=== PATIENT | male | born 1990 | race Caucasian/White ===

== ENCOUNTER 2017-09-27 14:10 | Inpatient (IN) | payer OTHER ==
[2017-09-27 14:37] VITALS: BMI 38.5
[2017-09-27] MEDS ORDERED: ACETAMINOPHEN 1000 MG/100 ML VIAL (NON FORMULARY) IVPB ONE (14:49)
[2017-09-27] MEDS ORDERED: SODIUM CHLORIDE 1,000 ML IV STA ×2 (14:49→16:07)
--- NOTE | 2017-09-27 14:56 | PDOC ---
History of Present Illness - General History Source: [facility] Exam Limitations: Clinical Condition - History of Present Illness Initial Comments: CHIEF COMPLAINT: 27 y/o febrile, tachycardic male with PMH epilepsy, G-tube, CP , wheelchair bound, intellectual disability, BIB EMS from [facility] for fever and copious oral secretions to r/o pneumonia. HISTORY OF PRESENT ILLNESS: No other information provided in the paperwork. Vital signs on arrival are notable for pulse of 147, respiratory rate of 26 and temp of 102.7. REVIEW OF SYSTEMS: Obtained from [facility] records as patient is non verbal. GENERAL/CONSTITUTIONAL: +fever of 101.3 at [facility] HEAD, EYES, EARS, NOSE AND THROAT: +excessive oral secretion. RESPIRATORY: +respiratory distress. GASTROINTESTINAL: No vomiting or diarrhea. PHYSICAL EXAM: GENERAL: The patient is somnolent HEAD: Normal with no signs of trauma. ENT: PERRLA, EOMI. Mucous membranes and lips dry. LUNGS: rhonchi in b/l anterior resendiz. CV: tachycardic with regular rhythm, S1/S2, no MRG. Cap refill < 2 sec. ABDOMEN: Soft, non-distended. EXTREMITIES: Normal range of motion, no edema. SKIN: Hot to touch <Margarita Bethea - Last Filed: 09/27/17 17:58> <Sanjana Abel - Last Filed: 09/28/17 11:28> - General Chief Complaint: SIRS, Suspected/Possible Stated Complaint: FEVER Time Seen by Provider: 09/27/17 14:31 Past History - Past Medical History COPD: No Seizures: Yes (epilepsy, cp,) Other medical history: Cerebral Palsy,scoliosis, - Surgical History Abdominal Surgery: Yes (gtube feeding) - Suicide/Smoking/Psychosocial Hx Smoking History: Never smoked Have you smoked in the past 12 months: No Information on smoking cessation initiated: No Hx Alcohol Use: No Drug/Substance Use Hx: No Substance Use Type: None <Margarita Bethea - Last Filed: 09/27/17 17:58> <Sanjana Abel - Last Filed: 09/28/17 11:28> - Past Medical History Allergies/Adverse Reactions: Allergies Allergy/AdvReac Type Severity Reaction Status Date / Time albuterol Allergy Verified 09/27/17 14:36 Cephalosporins Allergy Verified 09/27/17 14:37 latex Allergy Verified 09/27/17 14:37 Penicillins Allergy Verified 09/27/17 14:36 shrimp Allergy Verified 09/27/17 14:37 wool Allergy Verified 09/27/17 14:37 Home Medications: Ambulatory Orders Carbamazepine 300 mg GT DAILY 09/27/17 Carbamazepine 400 mg GT BID 09/27/17 Clobazam [Onfi] 5 mg GT AM 09/27/17 Clobazam [Onfi] 10 mg GT HS 09/27/17 Diazepam Rectal Gel [Diastat *Rectal Gel*] 10 mg RC PRN 09/27/17 LORazepam [Ativan] 1 mg GT DAILY PRN 09/27/17 Mometasone Furoate 17 gm NS DAILY 09/27/17 Polyethylene Glycol 3350 [Miralax (For Daily Use) -] 17 gm GT DAILY 09/27/17 Rufinamide [Banzel] 40 mg GT BID 09/27/17 Topiramate [Topamax -] 400 mg GT HS 09/27/17 Topiramate [Topamax] 300 mg GT AM 09/27/17 Zonisamide [Zonegran] 100 mg GT BID 09/27/17 Zonisamide [Zonegran] 250 mg GT HS 09/27/17 *Physical Exam - Vital Signs Last Vital Signs Temp Pulse Resp BP Pulse Ox 102.7 F H 147 H 26 H 99/74 97 09/27/17 14:10 09/27/17 14:10 09/27/17 14:10 09/27/17 14:10 09/27/17 14:10 <Margarita Bethea - Last Filed: 09/27/17 17:58> - Vital Signs Last Vital Signs Temp Pulse Resp BP Pulse Ox 100.0 F H 102 H 24 115/76 98 09/28/17 07:00 09/28/17 07:00 09/28/17 07:00 09/28/17 07:00 09/27/17 19:35 <Sanjana Abel - Last Filed: 09/28/17 11:28> Heart Score/ECG Review - ECG Intrepretation Comment:: Twelve-lead EKG was performed and reviewed by Dr. Abel. There is sinus tachycardia. Possible left atrial enlargement. Right axis deviation. Possible right ventricular hypertrophy. Impression: Abnormal twelve-lead EKG <Margarita Bethea - Last Filed: 09/27/17 17:58> ED Treatment Course - LABORATORY CBC & Chemistry Diagram: 09/27/17 15:02 09/27/17 15:02 <Margarita Bethea - Last Filed: 09/27/17 17:58> - LABORATORY CBC & Chemistry Diagram: 09/28/17 07:10 09/28/17 07:10 - ADDITIONAL ORDERS Additional order review: 09/27/17 15:02 Urine Culture - Preliminary Urine - Urine - Catheterized Gram Negative Audi 09/27/17 15:02 RBC 4.43 MCV 98.0 H MCHC 34.3 RDW 12.9 MPV 7.5 Neutrophils % 93.3 H Lymphocytes % 2.0 L Monocytes % 4.6 Eosinophils % 0.0 Basophils % 0.1 - RADIOLOGY Radiology Studies Ordered: Category Date Time Status CHEST X-RAY PORTABLE* [RAD] Stat Radiology 09/27/17 14:34 Completed - Medications Given in the ED: ED Medications Discontinued Medications Generic Name Dose Route Start Last Admin Trade Name Alexq PRN Reason Stop Dose Admin Acetaminophen 1,000 mg 09/27/17 14:49 09/27/17 15:14 Ofirmev Injection - IVPB 09/27/17 14:50 1,000 mg ONCE ONE Administration Sodium Chloride 1,000 mls @ 1,000 mls/hr 09/27/17 14:49 09/27/17 15:14 Normal Saline - IV 09/27/17 15:48 1,000 mls/hr ASDIR STA Administration Sodium Chloride 1,000 mls @ 1,000 mls/hr 09/27/17 16:07 09/27/17 16:33 Normal Saline - IV 09/27/17 17:06 1,000 mls/hr ASDIR STA Administration Levofloxacin 750 mg in 150 mls @ 100 mls/hr 09/27/17 17:02 09/27/17 17:24 Levaquin 750 Mg Premixed Ivpb - IVPB 09/27/17 18:31 100 mls/hr ONCE ONE Administration <Sanjana Abel - Last Filed: 09/28/17 11:28> Medical Decision Making - Medical Decision Making A/p: 27 y/o febrile, tachycardic male most likely septic. Suspect PNA. Plan is as follows: 1. Labs 2. CXR 3. UA/culture 4. IV fluids 5. IV ofirmev CXR IMPRESSION: No definite airspace consolidation. WBC count of 20 with left shift. Ordered IV levaquin to treat suspected pneumonia. Will admit to hospitalist. Microblogged hospitalist on 5:[address] Root. <Margarita Bethea - Last Filed: 09/27/17 17:58> *DC/Admit/Observation/Transfer - Discharge Dispostion Admit: Yes <Margarita Bethea - Last Filed: 09/27/17 17:58> - Attestations Physician Attestion: I reviewed the case with the mid-level practitioner and agree with the mid- level practitioner's assessment, diagnosis and disposition. <Sanjana Abel - Last Filed: 09/28/17 11:28> Diagnosis at time of Disposition: Sepsis Qualifiers: Sepsis type: sepsis due to unspecified organism Qualified Code(s): A41.9 - Sepsis, unspecified organism - Discharge Dispostion Condition at time of disposition: Poor
[2017-09-27] MEDS ORDERED: ACETAMINOPHEN INJECTION 100 ML IVPB ONE (15:05)
[2017-09-27 15:07] LABS: VENOUS PC02 42.5 mmHg (38-52); VENOUS PH 7.38 (7.32-7.42)
[2017-09-27 15:09] LABS: BASO % 0.1 % (0-2.0); HEMATOCRIT 43.4 % (35.4-49); HEMOGLOBIN 14.9 GM/dL (11.7-16.9); MCH 33.6 pg (25.7-33.7); MCHC 34.3 g/dl (32.0-35.9); MEAN PLT VOLUME 7.5 fl (7.5-11.1); MONO % 4.6 % (3.8-10.2); NEUT % 93.3 % (42.8-82.8); PLATELET COUNT 205 K/MM3 (134-434); RBC 4.43 M/mm3 (4.00-5.60); RDW 12.9 % (11.9-15.9); WHITE BLOOD COUNT 20.2 K/mm3 (4.0-10.0)
[2017-09-27 15:13] LABS: URINE APPEARANCE CLOUDY; URINE BILIRUBIN NEGATIVE (<2.0 mg/dL); URINE BLOOD NEGATIVE (NEGATIVE); URINE COLOR YELLOW; URINE GLUCOSE (UA) NEGATIVE (NEGATIVE); URINE KETONE NEGATIVE (NEGATIVE); URINE NITRITE NEGATIVE (NEGATIVE); URINE PROTEIN NEGATIVE (NEGATIVE); URINE UROBILINOGEN NEGATIVE mg/dL (0.2-1.0)
[2017-09-27 15:17] LABS: URINE LEUK ESTERASE 2+ (NEGATIVE)
[2017-09-27 15:22] LABS: URINE MUCUS RARE
[2017-09-27 15:25] LABS: ALBUMIN 4.1 g/dl (3.4-5.0); ALK PHOS 179 U/L (45-117); ANION GAP 12 (8-16); BILIRUBIN,TOTAL 0.4 mg/dL (0.2-1.0); BLOOD UREA NITROGEN 9 mg/dL (7-18); CALCIUM 8.7 mg/dL (8.5-10.1); CHLORIDE 93 mmol/L (98-107); CO2 25 mmol/L (21-32); CREATININE 0.4 mg/dL (0.7-1.3); GLUCOSE,RANDOM 85 mg/dL (74-106); SGOT/AST 28 U/L (15-37); SGPT/ALT 49 U/L (12-78); SODIUM 130 mmol/L (136-145)
[2017-09-27 15:37] LABS: INR 1.16 (0.82-1.09); PROTHROMBIN TIME (PATIENT) 13.1 SEC (9.98-11.88)
[2017-09-27] MEDS ORDERED: SODIUM CHLORIDE 1,000 ML IV SCH (17:30)
--- NOTE | 2017-09-27 18:05 | HP ---
CHIEF COMPLAINT: fever + increased oral secretions PCP: [facility] HISTORY OF PRESENT ILLNESS: 27yo young man with PMH of CP, epilepsy, scoliosis, and dysphagia s/p GT who presents from [place] after found to be febrile with 101.3F and increased yellow oral secretions. Patient was previously living at home with 24H aid, and recently moved to [facility] 1 week ago. Father (Josefa Patterson) is at bedside and reports patient has a history of aspiration, but prior UTIs. ER course was notable for: (1) Tmax 102.7, HR 147 (2) UA: 2+LE, WBC 8 (3) CXR: small L pleural effusion + bibasilar atelectasis, cannot r/o PNA Recent Travel: none PAST MEDICAL HISTORY: Cerebral palsy Epilepsy Scoliosis PAST SURGICAL HISTORY: GT placement Vagal stimulator, currently deactivated Social History: Smoking: never Alcohol: none Drugs: none Family History: non-contributory Allergies: albuterol Allergy (Verified 09/27/17 14:36) Cephalosporins Allergy (Verified 09/27/17 14:37) latex Allergy (Verified 09/27/17 14:37) Penicillins Allergy (Verified 09/27/17 14:36) shrimp Allergy (Verified 09/27/17 14:37) wool Allergy (Verified 09/27/17 14:37) HOME MEDICATIONS: Carbamazepine 300 mg GT DAILY 09/27/17 Carbamazepine 400 mg GT BID 09/27/17 Clobazam [Onfi] 5 mg GT AM 09/27/17 Clobazam [Onfi] 10 mg GT HS 09/27/17 Diazepam Rectal Gel [Diastat *Rectal Gel*] 10 mg RC PRN 09/27/17 LORazepam [Ativan] 1 mg GT DAILY PRN 09/27/17 Mometasone Furoate 17 gm NS DAILY 09/27/17 Polyethylene Glycol 3350 [Miralax (For Daily Use) -] 17 gm GT DAILY 09/27/17 Rufinamide [Banzel] 40 mg GT BID 09/27/17 Topiramate [Topamax -] 400 mg GT HS 09/27/17 Topiramate [Topamax] 300 mg GT AM 09/27/17 Zonisamide [Zonegran] 100 mg GT BID 09/27/17 Zonisamide [Zonegran] 250 mg GT HS 09/27/17 REVIEW OF SYSTEMS: unable to obtain PHYSICAL EXAMINATION Vital Signs - 24 hr 09/27/17 09/27/17 14:10 15:40 Temperature 102.7 F H 102 F H Pulse Rate 147 H 125 H Respiratory 26 H 22 Rate Blood Pressure 99/74 91/55 O2 Sat by Pulse 97 100 Oximetry (%) GENERAL: Awake, alert, non-verbal, nad HEENT: sclera anicteric, conjunctiva clear, oropharynx clear without exudates, mmm LUNGS: poor inspiratory effort, course breath sounds bilaterally, no wheezing appreciated HEART: tachycardia, regular rhythm, normal s1/s2 ABDOMEN: soft, NTND, +bowel sounds, +PEG in LUQ : no suprapubic ttp UPPER EXTREMITIES: contracted bilaterally LOWER EXTREMITIES: 2+ DP pulses, wwp, no edema SKIN: diffuse erythematous papular rash on forehead and flexor surfaces CBC, BMP 09/27/17 15:02 09/27/17 15:02 Hepatic Panel Total Bilirubin 0.4 mg/dL (0.2-1.0) 09/27/17 15:02 AST 28 U/L (15-37) 09/27/17 15:02 ALT 49 U/L (12-78) 09/27/17 15:02 Alkaline Phosphatase 179 U/L (45-117) H 09/27/17 15:02 Albumin 4.1 g/dl (3.4-5.0) 09/27/17 15:02 Active Medications Acetaminophen (Ofirmev Injection -) 1,000 mg IVPB Q6H PRN PRN Reason: FEVER Carbamazepine (Tegretol Oral Suspension -) 300 mg GT DAILY@1200 BRAD Carbamazepine (Tegretol Oral Suspension -) 400 mg GT BID@0800,1830 BRAD Clobazam (Onfi -) 5 mg PO AM BRAD Clobazam (Onfi -) 10 mg PO HS BRAD Diazepam (Diastat Rectal Gel -) 10 mg RC PRN BRAD Enoxaparin Sodium (Lovenox -) 40 mg SQ DAILY BRAD Fluticasone Propionate (Flonase -) 2 spray NS DAILY BRAD Sodium Chloride (Normal Saline -) 1,000 mls @ 125 mls/hr IV ASDIR BRAD Last Admin: 09/27/17 18:12 Dose: 125 mls/hr Levofloxacin (Levaquin 750 Mg Premixed Ivpb -) 750 mg in 150 mls @ 100 mls/hr IVPB DAILY@1700 [facility] Lorazepam (Ativan -) 1 mg GT DAILY PRN PRN Reason: seizure Non-Formulary Medication (Rufinamide [Banzel]) 40 mg GT BID BRAD Polyethylene Glycol (Miralax (For Daily Use) -) 17 gm GT DAILY BRAD Topiramate (Topamax -) 400 mg GT HS BRAD Topiramate (Topamax -) 300 mg GT AM BRAD Zonisamide (Zonisamide) 100 mg GT BID@0800,1500 BRAD Zonisamide (Zonisamide) 250 mg GT HS@2100 BRAD CXR (09/27/17): EXAM#: TYPE/EXAM: RESULT: [id number] RAD/CHEST X-RAY PORTABLE* INDICATION: Sepsis. TECHNIQUE: Single AP portable view of the chest. COMPARISON: None available. FINDINGS: The right lateral costophrenic angle is excluded from the [id number] which limits evaluation for small right pleural effusions. This examination is limited secondary to extensive scoliotic curvature and patient rotation. There is no definite airspace consolidation or pulmonary vascular congestion. There may be a small left pleural effusion. There are bibasilar linear opacities which are most likely atelectasis and/or scarring. There is no definable pneumothorax. Limited evaluation of the size of the cardiomediastinal silhouette because of magnification from AP portable technique. There is severe dextroconvex scoliotic curvature of the thoracic spine with spinal fixation rods. There is a left chest wall generator with leads appearing to course into the left neck. Please correlate clinically. IMPRESSION: No definite airspace consolidation or pulmonary vascular congestion. Questionable small left pleural effusion. Bibasilar linear opacities favored to be atelectasis versus scarring. ASSESSMENT/PLAN: 27yo man with PMH of CP, epilespy, scoliosis who presents from [place] for fever and increased secretions and found to have sepsis 2/2 UTI and suspected PNA. Labs are notable for leukocytosis (20.1) and UA suggestive of infection. CXR is notable for small L pleural effusion #sepsis 2/2 UTI and suspected PNA -Levofloxacin 750mg IV daily -s/p 2L NS in ED -> continue IVFs of NS@125cc/hr -f/u urine and blood cultures -Repeat CXR in AM -Oral suctions Q4H -Tylenol PRN for fever #epilepsy, no recent seizures reported -c/w home Topamax, carbamazepine, and Banzel -Banzel not on formulary; spoke to Mark ([phone]), will send over this evening #dysphagia s/p PEG -Replete TF 250cc bolus mixed w/ 360cc water, run over 1.5hours; Q3H at 9am, 12pm, 3pm, 6pm, 9pm -aspiration precautions, HOB elevated >30 #FEN NS@125cc.hr mild hypoNa noted Tube Feeds as above #DVT PPX: Lovenox 40mg SQ daily #DISPO: m/s FULL code d/w Dr. Dk Rose MD PGY1 - Internal Medicine Visit type - Emergency Visit Emergency Visit: Yes ED Registration Date: 09/27/17 Care time: The patient presented to the Emergency Department on the above date and was hospitalized for further evaluation of their emergent condition. - New Patient This patient is new to me today: Yes Date on this admission: 09/27/17 - Critical Care Critical Care patient: No Hospitalist Screening - Colonoscopy Questionnaire Colonoscopy Questionnaire: Colonoscopy Questionnaire - Patient: 50 - 75 years old and never had a screening colonoscopy: No History of colon or rectal polyps, or CA: Unknown History of IBD, Crohn's disease or UC: Unknown History of abdominal radiation therapy as a child: Unknown - Relative: 1 with colon or rectal CA, or polyps at age 60 or younger: Unknown Colon or rectal CA diagnosed at age 45 or younger: Unknown Multiple relatives with colon or rectal CA: Unknown - Outcome: Screening Result: Negative Screen
[2017-09-27] MEDS ORDERED: ACETAMINOPHEN 1000 MG/100 ML VIAL (NON FORMULARY) IVPB PRN (18:14)
--- NOTE | 2017-09-27 18:25 | PN ---
Teaching Attending Note Name of Resident: Argentina Rose ATTENDING PHYSICIAN STATEMENT I saw and evaluated the patient. I reviewed the resident's note and discussed the case with the resident. I agree with the resident's findings and plan as documented. SUBJECTIVE:27yo M with PMH CP, Seizure, dysphagia s/p PEG sent from [place] due to fever (101.3) and tachypnea and increases yellow secretions. pt was previously at home with 24H aid at home and recently moved to [place] a week ago. noticed at the facility above mentioned signs and was sent for evaluation. at baseline is non verbal and relies on help for all ADL. no recreational feeds due to hx of aspiration OBJECTIVE: Last Vital Signs Temp Pulse Resp BP Pulse Ox 102 F H 125 H 22 91/55 100 09/27/17 15:40 09/27/17 15:40 09/27/17 15:40 09/27/17 15:40 09/27/17 15:40 General mild distress with tachypnea and diaphoresis CV s1 s2 tachy Lungs coarse breath sounds on L with decreased at base no wheezing Abdomen soft NT/ND +LUQ PEG Extremities contracted B/L UE. skin erythematous papular rash diffuse on forehead and all extremities on all flexor surfaces ASSESSMENT AND PLAN: 27yo M with PMH CP, Seizure, dysphagia s/p PEG sent from [place] due to fever ( 101.3) and tachypnea and increases yellow secretions and found to be septic with UTI and suspected PNA 1. Sepsis due to suspected PNA and UTI- medince admission. tachypnea, fever and leukocytosis. lactic acid pending. CXR showing L pleural effusion can not r/o infiltrate. based on clinical presentation high suspicion for PNA. has allergy to Cephalsporin and PCN with rash. Started on levaquin. would cont for now. cont IVF. f/u Cx 2. Cerebral palsy 3. Diffuse rash- appears like a contact dermatitis. as per father has had for several months and has appt with manager mall. does not appear to be distressing patient. monitor 4. Seizure- no seizure like activity reported. cont home medications topamax, banzel, carbamazepine 5. dysphagia s/p PEG- cont tube feeds. aspiration precautions. elevate head of bed >30 6. DVT ppx-lovenox 7. spoke with father present at bedside. all questions answered. verbalized understanding and agreement with plan
[2017-09-27] MEDS ORDERED: LORazepam 1 MG TABLET PO PRN (18:58)
[2017-09-27] MEDS ORDERED: diazePAM ACUDIAL 5-7.5-10 MG 1 EACH KIT RC SCH (19:00)
[2017-09-27] MEDS ORDERED: LORazepam 1 MG TABLET GT PRN (19:13)
[2017-09-27] MEDS ORDERED: TOPIRAMATE 200 MG TABLET (FP) PO SCH (22:00)
[2017-09-27] MEDS ORDERED: carBAMazepine XR 400 MG TAB.ER.12H PO SCH (22:00)
[2017-09-27] MEDS ORDERED: CLOBAZAM 10 MG PO SCH (22:00)
[2017-09-27] MEDS ORDERED: ZONISAMIDE 100 MG CAPSULE PO SCH ×2 (22:00)
[2017-09-27] MEDS: cloBAZam 10 MG TABLET PO SCH (23:27)
[2017-09-27] MEDS: TOPIRAMATE 200 MG TABLET (FP) GT SCH (23:31)
[2017-09-27] MEDS: ZONISAMIDE 100 MG/10 ML ORAL SUSPENSION GT SCH (23:32)
[2017-09-28] MEDS: TOPIRAMATE 100 MG TABLET GT SCH (06:46)
[2017-09-28] MEDS: cloBAZam 10 MG TABLET PO SCH ×2 (06:46→21:06)
[2017-09-28] MEDS ORDERED: CLOBAZAM 5 MG PO SCH (07:00)
[2017-09-28] MEDS ORDERED: TOPIRAMATE 100 MG TABLET PO SCH (07:00)
[2017-09-28 07:46] LABS: BASO % 0.1 % (0-2.0); EOS % 0.1 % (0-4.5); HEMATOCRIT 35.3 % (35.4-49); HEMOGLOBIN 11.9 GM/dL (11.7-16.9); LYMPH % 12.1 % (8-40); MCH 33.6 pg (25.7-33.7); MCHC 33.8 g/dl (32.0-35.9); MEAN CELL VOLUME 99.4 fl (80-96); MEAN PLT VOLUME 7.4 fl (7.5-11.1); MONO % 5.9 % (3.8-10.2); NEUT % 81.8 % (42.8-82.8); PLATELET COUNT 184 K/MM3 (134-434); RBC 3.55 M/mm3 (4.00-5.60); RDW 12.9 % (11.9-15.9); WHITE BLOOD COUNT 11.4 K/mm3 (4.0-10.0)
[2017-09-28 07:53] LABS: ALBUMIN 3.1 g/dl (3.4-5.0); ANION GAP 7 (8-16); BLOOD UREA NITROGEN 9 mg/dL (7-18); CALCIUM 7.6 mg/dL (8.5-10.1); CHLORIDE 107 mmol/L (98-107); CO2 24 mmol/L (21-32); GLUCOSE,RANDOM 80 mg/dL (74-106); POTASSIUM 3.9 mmol/L (3.5-5.1); SODIUM 138 mmol/L (136-145)
[2017-09-28 07:57] LABS: ALK PHOS 128 U/L (45-117); BILIRUBIN,TOTAL 0.3 mg/dL (0.2-1.0); CREATININE 0.2 mg/dL (0.7-1.3); SGOT/AST 20 U/L (15-37); SGPT/ALT 40 U/L (12-78)
[2017-09-28] MEDS: ENOXAPARIN NA (PORCINE) 40 MG/0.4 ML DISP.SYRIN SQ SCH (09:34)
[2017-09-28] MEDS: carBAMazepine 200 MG/10 ML UNIT-DOSE CUP GT SCH ×3 (09:35→18:12)
[2017-09-28] MEDS: POLYETHYLENE GLYCOL 3350 119 GM BTL GT SCH (09:39)
[2017-09-28] MEDS: ZONISAMIDE 100 MG/10 ML ORAL SUSPENSION GT SCH ×3 (10:00→20:57)
[2017-09-28] MEDS ORDERED: POLYETHYLENE GLYCOL 3350 119 GM BTL PO SCH (10:00)
[2017-09-28] MEDS: RUFINAMIDE GT SCH (10:13)
--- NOTE | 2017-09-28 11:36 | EKG ---
Test Reason : Blood Pressure : / mmHG Vent. Rate : 132 BPM Atrial Rate : 132 BPM P-R Int : 140 ms QRS Dur : 100 ms QT Int : 304 ms P-R-T Axes : 049 140 042 degrees QTc Int : 450 ms SINUS TACHYCARDIA POSSIBLE LEFT ATRIAL ENLARGEMENT RIGHT AXIS DEVIATION POSSIBLE RIGHT VENTRICULAR HYPERTROPHY CANNOT RULE OUT INFERIOR INFARCT , AGE UNDETERMINED CANNOT RULE OUT ANTERIOR INFARCT , AGE UNDETERMINED ABNORMAL ECG NO PREVIOUS ECGS AVAILABLE Confirmed by IDRIS DILL, DENNIS ([id number]) on 09/28/2017 11:35:41 AM Referred By: Confirmed By:DENNIS STEINBERG MD
[2017-09-28] MEDS ORDERED: PATIENT'S OWN MEDICATION (NON-FORMULARY) (Carbamazepine [Carbamazepine Er] 300 MG) PO SCH (12:00)
--- NOTE | 2017-09-28 12:00 | PN ---
Progress Note (short form) - Note Progress Note: resting comfortable Current Medications Generic Name Dose Route Start Last Admin Trade Name Freq PRN Reason Stop Dose Admin Acetaminophen 1,000 mg 09/27/17 18:14 Ofirmev Injection - IVPB Q6H PRN FEVER Carbamazepine 300 mg 09/28/17 12:00 Tegretol Oral Suspension - GT DAILY@1200 BRAD Carbamazepine 400 mg 09/28/17 08:00 09/28/17 09:35 Tegretol Oral Suspension - GT 400 mg BID@0800,1830 BRAD Administration Clobazam 5 mg 09/28/17 07:00 09/28/17 06:46 Onfi - PO 5 mg AM BRAD Administration Clobazam 10 mg 09/27/17 22:00 09/27/17 23:27 Onfi - PO 10 mg HS BRAD Administration Diazepam 10 mg 09/27/17 19:00 Diastat Rectal Gel - RC PRN BRAD Enoxaparin Sodium 40 mg 09/28/17 10:00 09/28/17 09:34 Lovenox - SQ 40 mg DAILY BRAD Administration Fluticasone Propionate 2 spray 09/28/17 10:00 Flonase - NS DAILY BRAD Sodium Chloride 1,000 mls @ 125 mls/hr 09/27/17 17:30 09/27/17 18:12 Normal Saline - IV 125 mls/hr ASDIR BRAD Administration Levofloxacin 750 mg in 150 mls @ 100 mls/hr 09/28/17 17:00 Levaquin 750 Mg Premixed Ivpb - IVPB DAILY@1700 BRAD Lorazepam 1 mg 09/27/17 19:13 Ativan - GT DAILY PRN seizure Non-Formulary Medication 40 mg 09/27/17 22:00 Rufinamide [Banzel] GT BID BRAD Polyethylene Glycol 17 gm 09/28/17 10:00 09/28/17 09:39 Miralax (For Daily Use) - GT 17 gm DAILY BRAD Administration Topiramate 400 mg 09/27/17 22:00 09/27/17 23:31 Topamax - GT 400 mg HS BRAD Administration Topiramate 300 mg 09/28/17 07:00 09/28/17 06:46 Topamax - GT 300 mg AM BRAD Administration Zonisamide 100 mg 09/28/17 08:00 Zonisamide GT BID@0800,1500 BRAD Zonisamide 250 mg 09/27/17 21:00 09/27/17 23:32 Zonisamide GT Not Given HS@2100 BRAD Last Vital Signs Temp Pulse Resp BP Pulse Ox 100.0 F H 102 H 24 115/76 98 09/28/17 07:00 09/28/17 07:00 09/28/17 07:00 09/28/17 07:00 09/27/17 19:35 General resting comfortable CV s1 s2 tachy Lungs coarse breath sounds diffusely. no wheezing Abdomen soft NT/ND +LUQ PEG Extremities contracted B/L UE. skin erythematous papular rash diffuse on forehead and all extremities on all flexor surfaces CBCD WBC 11.4 K/mm3 (4.0-10.0) H D 09/28/17 07:10 RBC 3.55 M/mm3 (4.00-5.60) L 09/28/17 07:10 Hgb 11.9 GM/dL (11.7-16.9) D 09/28/17 07:10 Hct 35.3 % (35.4-49) L D 09/28/17 07:10 MCV 99.4 fl (80-96) H 09/28/17 07:10 MCHC 33.8 g/dl (32.0-35.9) 09/28/17 07:10 RDW 12.9 % (11.9-15.9) 09/28/17 07:10 Plt Count 184 K/MM3 (134-434) 09/28/17 07:10 MPV 7.4 fl (7.5-11.1) L 09/28/17 07:10 CMP Sodium 138 mmol/L (136-145) 09/28/17 07:10 Potassium 3.9 mmol/L (3.5-5.1) 09/28/17 07:10 Chloride 107 mmol/L (98-107) D 09/28/17 07:10 Carbon Dioxide 24 mmol/L (21-32) 09/28/17 07:10 Anion Gap 7 (8-16) L 09/28/17 07:10 BUN 9 mg/dL (7-18) 09/28/17 07:10 Creatinine 0.2 mg/dL (0.7-1.3) L D 09/28/17 07:10 Creat Clearance w eGFR > 60 (>60) 09/28/17 07:10 Calcium 7.6 mg/dL (8.5-10.1) L 09/28/17 07:10 Total Bilirubin 0.3 mg/dL (0.2-1.0) D 09/28/17 07:10 AST 20 U/L (15-37) D 09/28/17 07:10 ALT 40 U/L (12-78) 09/28/17 07:10 Alkaline Phosphatase 128 U/L (45-117) H D 09/28/17 07:10 Total Protein 6.0 g/dl (6.4-8.2) L D 09/28/17 07:10 Albumin 3.1 g/dl (3.4-5.0) L D 09/28/17 07:10 Microbiology 09/27/17 15:02 Urine Culture - Preliminary Urine - Urine - Catheterized Gram Negative Audi ASSESSMENT AND PLAN: 27yo M with PMH CP, Seizure, dysphagia s/p PEG sent from [place] due to fever ( 101.3) and tachypnea and increases yellow secretions and found to be septic with UTI and suspected PNA 1. Sepsis due to suspected PNA and UTI-Tm 102.7. no fevers since then. leukocytosis trending down. UCX with GNR. will f/u official Cx. cont levaquin day 2. d/c IVF. order chest PT. frequent suctioning 2. Hyponatremia- resolved 3. Cerebral palsy 4. Diffuse rash- appears like a contact dermatitis. as per father has had for several months and has appt with mental health orderly. does not appear to be distressing patient. monitor 5. Seizure- no seizure like activity reported. cont home medications topamax, banzel, carbamazepine. Banzel brought from [place] will need to be verified by pharmcy 6. dysphagia s/p PEG- cont tube feeds. aspiration precautions. elevate head of bed >30 7. DVT ppx-lovenox Visit type - Emergency Visit Emergency Visit: Yes ED Registration Date: 09/27/17 Care time: The patient presented to the Emergency Department on the above date and was hospitalized for further evaluation of their emergent condition. - New Patient This patient is new to me today: No - Critical Care Critical Care patient: No - Discharge Referral Referred to [facility] Med P.C.: No
[2017-09-28] MEDS: FLUTICASONE PROP 0.05% 16 GM NASAL SPRAY NS SCH (12:24)
[2017-09-28] MEDS ORDERED: RUFINAMIDE 40 MG/ML GT SCH (12:52)
[2017-09-28] MEDS ORDERED: LORazepam 2 MG/ML SDV VIAL ONE (13:57)
[2017-09-28] MEDS: RUFINAMIDE 40 MG/ML GT SCH ×2 (14:11→22:32)
[2017-09-28] MEDS ORDERED: LORazepam 2 MG/ML SDV VIAL IVPUSH ONE (14:15)
[2017-09-28] MEDS: TOPIRAMATE 200 MG TABLET (FP) GT SCH (21:06)
[2017-09-29] MEDS: TOPIRAMATE 100 MG TABLET GT SCH (06:13)
[2017-09-29] MEDS: cloBAZam 10 MG TABLET PO SCH ×2 (06:13→22:20)
[2017-09-29] MEDS: RUFINAMIDE GT SCH (07:10)
[2017-09-29 08:14] LABS: ANION GAP 5 (8-16); BLOOD UREA NITROGEN 7 mg/dL (7-18); CALCIUM 8.3 mg/dL (8.5-10.1); CHLORIDE 101 mmol/L (98-107); CO2 27 mmol/L (21-32); GLUCOSE,RANDOM 102 mg/dL (74-106); POTASSIUM 3.8 mmol/L (3.5-5.1); SODIUM 133 mmol/L (136-145)
[2017-09-29 08:15] LABS: CREATININE 0.2 mg/dL (0.7-1.3)
[2017-09-29 08:40] LABS: BASO % 0.4 % (0-2.0); EOS % 0.4 % (0-4.5); HEMATOCRIT 36.3 % (35.4-49); HEMOGLOBIN 12.2 GM/dL (11.7-16.9); LYMPH % 16.3 % (8-40); MCH 33.5 pg (25.7-33.7); MCHC 33.7 g/dl (32.0-35.9); MEAN CELL VOLUME 99.4 fl (80-96); MEAN PLT VOLUME 7.4 fl (7.5-11.1); MONO % 6.7 % (3.8-10.2); NEUT % 76.2 % (42.8-82.8); PLATELET COUNT 187 K/MM3 (134-434); RBC 3.65 M/mm3 (4.00-5.60); WHITE BLOOD COUNT 9.1 K/mm3 (4.0-10.0)
[2017-09-29] MEDS: FLUTICASONE PROP 0.05% 16 GM NASAL SPRAY NS SCH (09:18)
[2017-09-29] MEDS: ENOXAPARIN NA (PORCINE) 40 MG/0.4 ML DISP.SYRIN SQ SCH (09:18)
[2017-09-29] MEDS: POLYETHYLENE GLYCOL 3350 119 GM BTL GT SCH (09:19)
[2017-09-29] MEDS: ZONISAMIDE 100 MG/10 ML ORAL SUSPENSION GT SCH ×3 (09:19→20:39)
[2017-09-29] MEDS: RUFINAMIDE 40 MG/ML GT SCH ×2 (09:22→22:21)
[2017-09-29] MEDS: carBAMazepine 200 MG/10 ML UNIT-DOSE CUP GT SCH ×3 (09:22→18:36)
--- NOTE | 2017-09-29 10:41 | PN ---
Physical Exam: SUBJECTIVE: Patient seen and examined at bedside. No overnight events noted. Pt sleeping and awoken to strong sternal rub only to fall back asleep right after. OBJECTIVE: Vital Signs Temperature 98.7 F 09/29/17 07:00 Pulse Rate 88 09/29/17 07:00 Respiratory Rate 20 09/29/17 07:00 Blood Pressure 101/60 09/29/17 07:00 O2 Sat by Pulse Oximetry (%) 100 09/28/17 21:00 GENERAL: The patient is lethargic. Unable to give hx. EYES: sclera anicteric, conjunctiva clear ENT: Tongue with old bites. No new bites noted. LUNGS: Coarse breath sounds b/l. HEART: Regular rate and rhythm, S1, S2. Difficult to auscultate overall due to coarse breath sounds. ABDOMEN: Soft, nontender, nondistended, normoactive bowel sounds EXTREMITIES: 2+ pulses, warm, well-perfused, no edema. NEUROLOGICAL: Lethargic SKIN: Forehead diaphoretic. Laboratory Results - last 24 hr 09/29/17 09/29/17 07:35 07:35 WBC 9.1 RBC 3.65 L Hgb 12.2 Hct 36.3 MCV 99.4 H MCH 33.5 MCHC 33.7 RDW 13.0 Plt Count 187 MPV 7.4 L Neutrophils % 76.2 Lymphocytes % 16.3 D Monocytes % 6.7 Eosinophils % 0.4 D Basophils % 0.4 D Sodium 133 L Potassium 3.8 Chloride 101 Carbon Dioxide 27 Anion Gap 5 L BUN 7 D Creatinine 0.2 L Random Glucose 102 D Calcium 8.3 L Active Medications Generic Name Dose Route Start Last Admin Trade Name Alexq PRN Reason Stop Dose Admin Acetaminophen 1,000 mg 09/27/17 18:14 Ofirmev Injection - IVPB Q6H PRN FEVER Carbamazepine 300 mg 09/28/17 12:00 09/28/17 12:26 Tegretol Oral Suspension - GT 300 mg DAILY@1200 [facility] Administration Carbamazepine 400 mg 09/28/17 08:00 09/29/17 09:22 Tegretol Oral Suspension - GT 400 mg BID@0800,1830 [facility] Administration Clobazam 5 mg 09/28/17 07:00 09/29/17 06:13 Onfi - PO 5 mg AM [facility]AD Administration Clobazam 10 mg 09/27/17 22:00 09/28/17 21:06 Onfi - PO 10 mg HS [facility]AD Administration Diazepam 10 mg 09/27/17 19:00 Diastat Rectal Gel - RC PRN [facility] Enoxaparin Sodium 40 mg 09/28/17 10:00 09/29/17 09:18 Lovenox - SQ 40 mg DAILY [facility] Administration Fluticasone Propionate 2 spray 09/28/17 10:00 09/29/17 09:18 Flonase - NS 2 sprays DAILY [facility] Administration Levofloxacin 750 mg in 150 mls @ 100 mls/hr 09/28/17 17:00 09/28/17 16:14 Levaquin 750 Mg Premixed Ivpb - IVPB 100 mls/hr DAILY@1700 [facility] Administration Lorazepam 1 mg 09/27/17 19:13 Ativan - GT DAILY PRN seizure Lorazepam 2 mg 09/28/17 15:52 09/28/17 17:22 Ativan Injection - IVPUSH 2 mg [id number] PRN Administration seizure Patient's Own 40 ml 09/28/17 14:00 09/29/17 09:22 Medication (Non- GT 40 ml Formulary) ( BID BRAD Administration Rufinamide [Banzel] 40mg/ Ml) Polyethylene Glycol 17 gm 09/28/17 10:00 09/29/17 09:19 Miralax (For Daily Use) - GT 17 gm DAILY [facility] Administration Topiramate 400 mg 09/27/17 22:00 09/28/17 21:06 Topamax - GT 400 mg HS [facility]AD Administration Topiramate 300 mg 09/28/17 07:00 09/29/17 06:13 Topamax - GT 300 mg AM [facility]AD Administration Zonisamide 100 mg 09/28/17 08:00 09/29/17 09:19 Zonisamide GT 100 mg BID@0800,1500 BRAD Administration Zonisamide 250 mg 09/27/17 21:00 09/28/17 20:57 Zonisamide GT 250 mg HS@2100 [facility]AD Administration ASSESSMENT/PLAN: 27 y/o M w/PMH seizure, dysphagia s/p PEG, cerebral palsy from [place] for fever. Found to have sepsis secondary to UTI and possible PNA. -Sepsis secondary to possible PNA and UTI -improving -Tmax 99.9 at 6 pm yesterday -c/w levaquin day 3 -UCx Klebsiella pneumoniae -frequent suctioning -chest pt -leukocyte count wnl today -aspiration precautions -Hyponatremia -133 today -will restart on NS @ 100 ml/hr -continue to monitor -Seizure d/o -No seizure activity noted overnight -c/w topamax, zonsiamide, onfi, tegretol, banzel -ativan prn for seizure -DVT ppx -lovenox -FEN -NS @ 100 ml/hr -Hyponatremia - restart NS, monitor -tube feeds -Dispo: -monitor on m/s Visit type - Emergency Visit Emergency Visit: Yes ED Registration Date: 09/27/17 Care time: The patient presented to the Emergency Department on the above date and was hospitalized for further evaluation of their emergent condition. - New Patient This patient is new to me today: No - Critical Care Critical Care patient: No
--- NOTE | 2017-09-29 11:14 | PN ---
Teaching Attending Note Name of Resident: Victoriano Naranjo ATTENDING PHYSICIAN STATEMENT I saw and evaluated the patient. I reviewed the resident's note and discussed the case with the resident. I agree with the resident's findings and plan as documented. SUBJECTIVE:resting comfortable. OBJECTIVE: Last Vital Signs Temp Pulse Resp BP Pulse Ox 98.7 F 88 20 101/60 100 09/29/17 07:00 09/29/17 07:00 09/29/17 07:00 09/29/17 07:00 09/28/17 21:00 General NAD, noticed diaphoresis limited to forehead with assoc rash CV S1 S2 RRR no murmur/rub/gallop Lungs coarse breath sounds L >R ASSESSMENT AND PLAN: 27yo M with PMH CP, Seizure, dysphagia s/p PEG sent from [place] due to fever ( 101.3) and tachypnea and increases yellow secretions and found to be septic with UTI and suspected PNA 1. Sepsis due to suspected PNA and UTI-afebrile. leukoctosis resolved. UCx showing klebsiella sensitive to levaquin. will cont for now. Levaquin day 3.chest PT. frequent suctioning 2. Hyponatremia- resolved 3. Cerebral palsy 4. Diffuse rash- appears like a contact dermatitis. is diaphoretic on forehead no fevers. possible just typical for pt which is leading to rash. dermatology as outpatient. 5. Seizure-had 2 witnessed seizure yesterday (shaking of B/L UE only. noted when neighbor was screaming, possible agitation and not true seizure) however did miss 2 doses of banzel. s/p ativan x2. no repeated episodes. now receiving all antieleptics. 6. dysphagia s/p PEG- cont tube feeds. aspiration precautions. elevate head of bed >30 7. DVT ppx-lovenox 8. possible d/c tomorrow if remains afebrile and no repeat seizures.
[2017-09-29] MEDS ORDERED: PT OWN MED DRAWER 7, Y5N ONE ×3 (12:43→16:48)
[2017-09-29] MEDS ORDERED: ACETAMINOPHEN 650 MG/20.3 ML ORAL SOLUTION (CUPS) PO PRN (16:08)
[2017-09-29] MEDS: SODIUM CHLORIDE 1,000 ML IV SCH (17:04)
[2017-09-29] MEDS: TOPIRAMATE 200 MG TABLET (FP) GT SCH (22:53)
[2017-09-30] MEDS: TOPIRAMATE 100 MG TABLET GT SCH (06:06)
[2017-09-30] MEDS: cloBAZam 10 MG TABLET PO SCH (06:06)
[2017-09-30] MEDS: SODIUM CHLORIDE 1,000 ML IV SCH (06:32)
--- NOTE | 2017-09-30 07:10 | PN ---
Physical Exam: SUBJECTIVE: Patient seen and examined OBJECTIVE: Vital Signs Period Temp Pulse Resp BP Sys/Grossman Pulse Ox Last 24 Hr 98.1 F-99.3 F 86-103 20-21 90-109/54-69 97-97 GENERAL: The patient is awake, alert, and fully oriented, in no acute distress. HEAD: Normal with no signs of trauma. EYES: PERRL, extraocular movements intact, sclera anicteric, conjunctiva clear. No ptosis. ENT: Ears normal, nares patent, oropharynx clear without exudates, moist mucous membranes. NECK: Trachea midline, full range of motion, supple. LUNGS: Breath sounds equal, clear to auscultation bilaterally, no wheezes, no crackles, no accessory muscle use. HEART: Regular rate and rhythm, S1, S2 without murmur, rub or gallop. ABDOMEN: Soft, nontender, nondistended, normoactive bowel sounds, no guarding, no rebound, no hepatosplenomegaly, no masses. EXTREMITIES: 2+ pulses, warm, well-perfused, no edema. NEUROLOGICAL: Cranial nerves II through XII grossly intact. Normal speech, gait not observed. PSYCH: Normal mood, normal affect. SKIN: Warm, dry, normal turgor, no rashes or lesions noted Laboratory Results - last 24 hr 09/29/17 09/29/17 07:35 07:35 WBC 9.1 RBC 3.65 L Hgb 12.2 Hct 36.3 MCV 99.4 H MCH 33.5 MCHC 33.7 RDW 13.0 Plt Count 187 MPV 7.4 L Neutrophils % 76.2 Lymphocytes % 16.3 D Monocytes % 6.7 Eosinophils % 0.4 D Basophils % 0.4 D Sodium 133 L Potassium 3.8 Chloride 101 Carbon Dioxide 27 Anion Gap 5 L BUN 7 D Creatinine 0.2 L Random Glucose 102 D Calcium 8.3 L Active Medications Acetaminophen (Ofirmev Injection -) 1,000 mg IVPB Q6H PRN PRN Reason: FEVER Acetaminophen (Tylenol Oral Solution -) 650 mg PO Q6H PRN PRN Reason: FEVER Carbamazepine (Tegretol Oral Suspension -) 300 mg GT DAILY@1200 [facility] Last Admin: 09/29/17 13:08 Dose: 300 mg Carbamazepine (Tegretol Oral Suspension -) 400 mg GT BID@0800,1830 [facility] Last Admin: 09/29/17 18:36 Dose: 400 mg Clobazam (Onfi -) 5 mg PO AM [facility] Last Admin: 09/30/17 06:06 Dose: 5 mg Clobazam (Onfi -) 10 mg PO HS [facility] Last Admin: 09/29/17 22:20 Dose: 10 mg Diazepam (Diastat Rectal Gel -) 10 mg RC PRN [facility] Enoxaparin Sodium (Lovenox -) 40 mg SQ DAILY [facility] Last Admin: 09/29/17 09:18 Dose: 40 mg Fluticasone Propionate (Flonase -) 2 spray NS DAILY [facility] Last Admin: 09/29/17 09:18 Dose: 2 sprays Levofloxacin (Levaquin 750 Mg Premixed Ivpb -) 750 mg in 150 mls @ 100 mls/hr IVPB DAILY@1700 [facility] Last Admin: 09/29/17 17:05 Dose: 100 mls/hr Sodium Chloride (Normal Saline -) 1,000 mls @ 100 mls/hr IV ASDIR [facility] Stop: 09/30/17 16:15 Last Admin: 09/30/17 06:32 Dose: 100 mls/hr Lorazepam (Ativan -) 1 mg GT DAILY PRN PRN Reason: seizure Lorazepam (Ativan Injection -) 2 mg IVPUSH [id number] PRN PRN Reason: seizure Last Admin: 09/28/17 17:22 Dose: 2 mg Patient's Own Medication (Non- Formulary) ( Rufinamide [Banzel] 40mg/ Ml) 40 ml GT BID [facility] Last Admin: 09/29/17 22:21 Dose: 40 ml Polyethylene Glycol (Miralax (For Daily Use) -) 17 gm GT DAILY [facility] Last Admin: 09/29/17 09:19 Dose: 17 gm Topiramate (Topamax -) 400 mg GT HS [facility] Last Admin: 09/29/17 22:53 Dose: 400 mg Topiramate (Topamax -) 300 mg GT AM [facility] Last Admin: 09/30/17 06:06 Dose: 300 mg Zonisamide (Zonisamide) 100 mg GT BID@0800,1500 [facility] Last Admin: 09/29/17 17:05 Dose: 100 mg Zonisamide (Zonisamide) 250 mg GT HS@2100 [facility] Last Admin: 09/29/17 20:39 Dose: 250 mg ASSESSMENT/PLAN:
[2017-09-30 08:42] LABS: BASO % 0.4 % (0-2.0); EOS % 0.6 % (0-4.5); HEMATOCRIT 34.9 % (35.4-49); HEMOGLOBIN 11.9 GM/dL (11.7-16.9); LYMPH % 22.9 % (8-40); MCH 33.8 pg (25.7-33.7); MCHC 33.9 g/dl (32.0-35.9); MEAN CELL VOLUME 99.5 fl (80-96); MEAN PLT VOLUME 6.7 fl (7.5-11.1); MONO % 8.6 % (3.8-10.2); NEUT % 67.5 % (42.8-82.8); PLATELET COUNT 187 K/MM3 (134-434); RBC 3.51 M/mm3 (4.00-5.60); RDW 12.7 % (11.9-15.9); WHITE BLOOD COUNT 6.6 K/mm3 (4.0-10.0)
[2017-09-30] MEDS ORDERED: PT OWN MED DRAWER 7, Y5N ONE ×9 (08:58→18:48)
[2017-09-30] MEDS: carBAMazepine 200 MG/10 ML UNIT-DOSE CUP GT SCH ×3 (08:59→18:22)
[2017-09-30 09:10] LABS: ALBUMIN 3.1 g/dl (3.4-5.0); ANION GAP 4 (8-16); BLOOD UREA NITROGEN 6 mg/dL (7-18); CHLORIDE 106 mmol/L (98-107); CO2 28 mmol/L (21-32); CREATININE 0.2 mg/dL (0.7-1.3); GLUCOSE,RANDOM 95 mg/dL (74-106); POTASSIUM 3.7 mmol/L (3.5-5.1); SODIUM 138 mmol/L (136-145)
[2017-09-30] MEDS: ZONISAMIDE 100 MG/10 ML ORAL SUSPENSION GT SCH ×2 (09:42→15:33)
[2017-09-30] MEDS: POLYETHYLENE GLYCOL 3350 119 GM BTL GT SCH ×2 (10:56→12:32)
[2017-09-30] MEDS: ENOXAPARIN NA (PORCINE) 40 MG/0.4 ML DISP.SYRIN SQ SCH (10:57)
[2017-09-30] MEDS: FLUTICASONE PROP 0.05% 16 GM NASAL SPRAY NS SCH ×2 (10:57→10:58)
[2017-09-30] MEDS: RUFINAMIDE 40 MG/ML GT SCH (11:02)
[2017-09-30] MEDS ORDERED: IPRATROPIUM BR 0.02% 0.5 MG/2.5 ML VIAL.NEB. NEB ONE (11:22)
[2017-09-30] MEDS ORDERED: INSULIN (NOVOLOG) ASPART 100 UNITS/ML 10ML VIAL ONE (12:25)
--- NOTE | 2017-09-30 13:14 | PN ---
Teaching Attending Note Name of Resident: Argentina Rose ATTENDING PHYSICIAN STATEMENT I saw and evaluated the patient. I reviewed the resident's note and discussed the case with the resident. I agree with the resident's findings and plan as documented. SUBJECTIVE:resting comfortable OBJECTIVE: Last Vital Signs Temp Pulse Resp BP Pulse Ox 99.8 F H 94 H 24 106/61 97 09/30/17 12:00 09/30/17 12:35 09/30/17 12:35 09/30/17 12:35 09/29/17 21:00 General NAD, CV S1 S2 RRR no murmur/rub/gallop Lungs coarse breath sounds L >R ASSESSMENT AND PLAN: 27yo M with PMH CP, Seizure, dysphagia s/p PEG sent from [place] due to fever ( 101.3) and tachypnea and increases yellow secretions and found to be septic with UTI and suspected PNA 1. Sepsis due to suspected PNA and UTI-afebrile. leukoctosis resolved. UCx showing klebsiella sensitive to levaquin. will cont for now. Levaquin day 4. complete 10 day course. chest PT. frequent suctioning. aspiration precautions 2. Hyponatremia- resolved 3. Cerebral palsy 4. Diffuse rash- appears like a contact dermatitis. no longer diaphoretic. cont with good hygiene. F/u dermatology as outpatient. 5. Seizure-no repeat seizures since 09/28. was likely induced from missing medications. cont home regimen. 6. dysphagia s/p PEG- cont tube feeds. aspiration precautions. elevate head of bed >30 7. DVT ppx-lovenox 8. d/c to [place] today
--- NOTE | 2017-09-30 13:54 | DS ---
Physical Exam: SUBJECTIVE: Patient seen and examined. Resting comfortably. OBJECTIVE: Vital Signs Period Temp Pulse Resp BP Sys/Grossman Pulse Ox Last 24 Hr 98.1 F-99.8 F 79-103 20-24 90-108/40-69 97 PHYSICAL EXAM GENERAL: AA, non-verbal LUNGS: course breath sounds L > R HEART: rrr, normal s1/s2, no m/r/g ABDOMEN: soft, NTND, +bowel sounds : no suprapubic ttp EXTREMITIES: UE b/l contracted; LE no edema, 2+ DP pulses NEUROLOGICAL: Cranial nerves II through XII grossly intact. Normal speech, gait not observed. LABS CBC, BMP 09/30/17 08:25 09/30/17 08:25 Hepatic Panel Total Bilirubin 0.3 mg/dL (0.2-1.0) D 09/28/17 07:10 AST 20 U/L (15-37) D 09/28/17 07:10 ALT 40 U/L (12-78) 09/28/17 07:10 Alkaline Phosphatase 128 U/L (45-117) H D 09/28/17 07:10 Albumin 3.1 g/dl (3.4-5.0) L 09/30/17 08:25 Urine Test Results Urine Color Yellow 09/27/17 15:02 Urine Appearance Cloudy 09/27/17 15:02 Urine pH 7.0 (5.0-8.0) 09/27/17 15:02 Ur Specific [place] 1.006 (1.001-1.035) 09/27/17 15:02 Urine Protein Negative (NEGATIVE) 09/27/17 15:02 Urine Glucose (UA) Negative (NEGATIVE) 09/27/17 15:02 Urine Ketones Negative (NEGATIVE) 09/27/17 15:02 Urine Blood Negative (NEGATIVE) 09/27/17 15:02 Urine Nitrite Negative (NEGATIVE) 09/27/17 15:02 Urine Bilirubin Negative (<2.0 mg/dL) 09/27/17 15:02 Ur Leukocyte Esterase 2+ (NEGATIVE) H 09/27/17 15:02 Urine Mucus Rare 09/27/17 15:02 Microbiology 09/27/17 14:53 Blood - Peripheral Venous Blood Culture - Preliminary NO GROWTH OBTAINED AFTER 48 HOURS, INCUBATION TO CONTINUE FOR 3 DAYS. 09/27/17 15:02 Blood - Peripheral Venous Blood Culture - Preliminary NO GROWTH OBTAINED AFTER 48 HOURS, INCUBATION TO CONTINUE FOR 3 DAYS. 09/27/17 15:02 Urine - Urine - Catheterized Urine Culture - Final Klebsiella Pneumoniae Active Medications Acetaminophen (Ofirmev Injection -) 1,000 mg IVPB Q6H PRN PRN Reason: FEVER Acetaminophen (Tylenol Oral Solution -) 650 mg PO Q6H PRN PRN Reason: FEVER Carbamazepine (Tegretol Oral Suspension -) 300 mg GT DAILY@1200 [facility] Last Admin: 09/30/17 12:30 Dose: 300 mg Carbamazepine (Tegretol Oral Suspension -) 400 mg GT BID@0800,1830 [facility] Last Admin: 09/30/17 08:59 Dose: 400 mg Clobazam (Onfi -) 5 mg PO AM [facility] Last Admin: 09/30/17 06:06 Dose: 5 mg Clobazam (Onfi -) 10 mg PO HS [facility] Last Admin: 09/29/17 22:20 Dose: 10 mg Diazepam (Diastat Rectal Gel -) 10 mg RC PRN [facility] Enoxaparin Sodium (Lovenox -) 40 mg SQ DAILY [facility] Last Admin: 09/30/17 10:57 Dose: 40 mg Fluticasone Propionate (Flonase -) 2 spray NS DAILY [facility] Last Admin: 09/30/17 10:58 Dose: 2 sprays Levofloxacin (Levaquin 750 Mg Premixed Ivpb -) 750 mg in 150 mls @ 100 mls/hr IVPB DAILY@1700 [facility] Last Admin: 09/29/17 17:05 Dose: 100 mls/hr Ipratropium [place] (Atrovent 0.02% Nebulizer -) 1 amp NEB RQID [facility] Lorazepam (Ativan -) 1 mg GT DAILY PRN PRN Reason: seizure Lorazepam (Ativan Injection -) 2 mg IVPUSH [id number] PRN PRN Reason: seizure Last Admin: 09/28/17 17:22 Dose: 2 mg Patient's Own Medication (Non- Formulary) ( Rufinamide [Banzel] 40mg/ Ml) 40 ml GT BID [facility] Last Admin: 09/30/17 11:02 Dose: 40 ml Polyethylene Glycol (Miralax (For Daily Use) -) 17 gm GT DAILY [facility] Last Admin: 09/30/17 12:32 Dose: Not Given Topiramate (Topamax -) 400 mg GT HS [facility] Last Admin: 09/29/17 22:53 Dose: 400 mg Topiramate (Topamax -) 300 mg GT AM [facility] Last Admin: 09/30/17 06:06 Dose: 300 mg Zonisamide (Zonisamide) 100 mg GT BID@0800,1500 [facility] Last Admin: 09/30/17 09:42 Dose: 100 mg Zonisamide (Zonisamide) 250 mg GT HS@2100 [facility] Last Admin: 09/29/17 20:39 Dose: 250 mg HOSPITAL COURSE: Date of Admission:09/27/17 Date of Discharge: 09/30/17 Pre-Admission Course: 27yo young man with PMH of CP, epilepsy, scoliosis, and dysphagia s/p GT who presents from [place] after found to be febrile with 101.3F and increased yellow oral secretions. Patient was previously living at home with [facility], and recently moved to [facility] 1 week ago. Father (Josefa Patterson) is at bedside and reports patient has a history of aspiration, but no prior UTIs. ER course was notable for: (1) Tmax 102.7, HR 147 (2) UA: 2+LE, WBC 8 (3) CXR: small L pleural effusion + bibasilar atelectasis, cannot r/o PNA Subsequent Hospital Course: Patient was admitted for sepsis 2/2 UTI and suspected PNA. Labs on admission were notable for leukocytosis (20.1), UA showing pyuria (WBC 8) with 2+LE, and Urine culture growing Klebsiella pneumoniae (>100K CFU, Resistent to Ampicillin , Intermediate to Nitrofurantoin). The patient was started on Levofloxacin 750mg IV daily, and is on day 4 of 10 treatment. The patient has beenn receiving frequent oral suctioning and chest physiotherapy. He was started on Ipatropium [place] nebulizer RQID (Albulterol nebs not give due to reported adverse reaction). His oral secretions have decreased from admission, and are no longer yellow/green, but thin white. He has been weaned off oxygen therapy, and is satting 94-95% on RA. He has been afebrile for the past 3 days and no leukocytosis for the past 2 days. Blood cultures are negative (NGTD x 48hours). He has a history of epilepsy, and was witnessed to have a seizure on 09/28 successfully treated with Ativan IV, which was likely induced in the setting of missing doses of his home medications. No further seizures were noted. His home anti-epileptics have been continued. IMAGING: EXAM#: TYPE/EXAM: RESULT: [id number] RAD/CHEST X-RAY PORTABLE* INDICATION: Sepsis. TECHNIQUE: Single AP portable view of the chest. COMPARISON: None available. FINDINGS: The right lateral costophrenic angle is excluded from the [id number] which limits evaluation for small right pleural effusions. This examination is limited secondary to extensive scoliotic curvature and patient rotation. There is no definite airspace consolidation or pulmonary vascular congestion. There may be a small left pleural effusion. There are bibasilar linear opacities which are most likely atelectasis and/or scarring. There is no definable pneumothorax. Limited evaluation of the size of the cardiomediastinal silhouette because of magnification from AP portable technique. There is severe dextroconvex scoliotic curvature of the thoracic spine with spinal fixation rods. There is a left chest wall generator with leads appearing to course into the left neck. Please correlate clinically. IMPRESSION: No definite airspace consolidation or pulmonary vascular congestion. Questionable small left pleural effusion. Bibasilar linear opacities favored to be atelectasis versus scarring. EXAM#: TYPE/EXAM: RESULT: [id number] RAD/CHEST X-RAY PORTABLE* AP portable chest : Sepsis. Pneumonia Imaging reveals a scoliosis with convexity to the right, previous spinal fusion hardware, left- sided stimulator device, large heart and dense retrocardiac area with questionable old rib trauma. Since 09/27/2017, there is no change of an adverse nature. Impression : no significant change since prior study Minutes to complete discharge: 45 Discharge Summary Reason For Visit: SEPSIS LUNGS Current Active Problems Sepsis (Acute) Condition: Stable - Instructions Diet, Activity, Other Instructions: You were admitted to the hospital for sepsis due to UTI and suspected pneumonia. You have been treated with antibiotics. -Recommend frequent oral suctioning Q1H and posterior chest physiotherapy four times a day. -Continue all you regular medications with the following addition: 1) Continue taking Levoquin 750mg through the PEG tube daily for 6 more days (total of 10days). Your last dose will be on 10/06. 2) Ipatropium [place] Nebulizer 1 amp Q6H PRN for wheezing or congestion Below is a list of the medications that you were receiving here and time of the last administration: Acetaminophen (Ofirmev Injection -) 1,000 mg IVPB Q6H PRN PRN Reason: FEVER Acetaminophen (Tylenol Oral Solution -) 650 mg PO Q6H PRN PRN Reason: FEVER Carbamazepine (Tegretol Oral Suspension -) 300 mg GT DAILY@1200 [facility] Last Admin: 09/30/17 12:30 Dose: 300 mg Carbamazepine (Tegretol Oral Suspension -) 400 mg GT BID@0800,1830 [facility] Last Admin: 09/30/17 08:59 Dose: 400 mg Clobazam (Onfi -) 5 mg PO AM [facility] Last Admin: 09/30/17 06:06 Dose: 5 mg Clobazam (Onfi -) 10 mg PO HS [facility] Last Admin: 09/29/17 22:20 Dose: 10 mg Diazepam (Diastat Rectal Gel -) 10 mg RC PRN [facility] Enoxaparin Sodium (Lovenox -) 40 mg SQ DAILY [facility] Last Admin: 09/30/17 10:57 Dose: 40 mg Fluticasone Propionate (Flonase -) 2 spray NS DAILY [facility] Last Admin: 09/30/17 10:58 Dose: 2 sprays Levofloxacin (Levaquin 750 Mg Premixed Ivpb -) 750 mg in 150 mls @ 100 mls/hr IVPB DAILY@1700 [facility] Last Admin: 09/29/17 17:05 Dose: 100 mls/hr Ipratropium [place] (Atrovent 0.02% Nebulizer -) 1 amp NEB RQID [facility] Lorazepam (Ativan -) 1 mg GT DAILY PRN PRN Reason: seizure Lorazepam (Ativan Injection -) 2 mg IVPUSH [id number] PRN PRN Reason: seizure Last Admin: 09/28/17 17:22 Dose: 2 mg Patient's Own Medication (Non- Formulary) ( Rufinamide [Banzel] 40mg/ Ml) 40 ml GT BID [facility] Last Admin: 09/30/17 11:02 Dose: 40 ml Polyethylene Glycol (Miralax (For Daily Use) -) 17 gm GT DAILY [facility] Last Admin: 09/30/17 12:32 Dose: Not Given Topiramate (Topamax -) 400 mg GT HS [facility] Last Admin: 09/29/17 22:53 Dose: 400 mg Topiramate (Topamax -) 300 mg GT AM [facility] Last Admin: 09/30/17 06:06 Dose: 300 mg Zonisamide (Zonisamide) 100 mg GT BID@0800,1500 [facility] Last Admin: 09/30/17 09:42 Dose: 100 mg Zonisamide (Zonisamide) 250 mg GT HS@2100 [facility] Last Admin: 09/29/17 20:39 Dose: 250 mg Please return to the Emergency Room if you have fever, worsening secretions, or any new or concerning symptoms. Disposition: [facility] - Home Medications Comprehensive Discharge Medication List: Ambulatory Orders Carbamazepine 300 mg GT DAILY 09/27/17 Carbamazepine 400 mg GT BID 09/27/17 Clobazam [Onfi] 5 mg GT AM 09/27/17 Clobazam [Onfi] 10 mg GT HS 09/27/17 Diazepam Rectal Gel [Diastat *Rectal Gel*] 10 mg RC PRN 09/27/17 LORazepam [Ativan] 1 mg GT DAILY PRN 09/27/17 Mometasone Furoate 17 gm NS DAILY 09/27/17 Polyethylene Glycol 3350 [Miralax (For Daily Use) -] 17 gm GT DAILY 09/27/17 Rufinamide [Banzel] 40 mg GT BID 09/27/17 Topiramate [Topamax -] 400 mg GT HS 09/27/17 Topiramate [Topamax] 300 mg GT AM 09/27/17 Zonisamide [Zonegran] 100 mg GT BID 09/27/17 Zonisamide [Zonegran] 250 mg GT 09/27/17 This patient is new to me today: No Emergency Visit: No Critical Care patient: No - Discharge Referral Referred to [facility] No
[2017-09-30 13:56] VITALS: BP 102/64; PULSE 99
[2017-09-30 14:21] VITALS: TEMP 99.7
[2017-09-30] MEDS ORDERED: IPRATROPIUM BR 0.02% 0.5 MG/2.5 ML VIAL.NEB. NEB SCH (16:00)
[2017-09-30] MEDS ORDERED: levoFLOXacin 750 MG TABLET GT SCH ×2 (16:45)
== END 2017-09-30 19:32 | disposition home or self-care (01) | DRG 871 ==
LOC: JER 14:10 → JERBED 17:12 → J5S 21:28
PROVIDERS: ADMIT Internal Medicine; ATTEND Internal Medicine
DX: A41.9 Sepsis, unspecified organism (principal); R53.2 Functional quadriplegia; J18.9 Pneumonia, unspecified organism; N39.0 Urinary tract infection, site not specified; J98.11 Atelectasis; E87.1 Hypo-osmolality and hyponatremia; G40.909 Epilepsy, unspecified, not intractable, without status epilepticus; R13.10 Dysphagia, unspecified; D72.829 Elevated white blood cell count, unspecified; G80.9 Cerebral palsy, unspecified; Z93.1 Gastrostomy status; L25.9 Unspecified contact dermatitis, unspecified cause
CPT/HCPCS: 36415; 71045-TC-FY; 80048; 80053; 81003; 81015; 82040; 82803; 83605; 84484; 85025; 85610; 85730; 87040; 87086; 87186; 93005; 93010; 94640; 99284-25; J0131; J7030

== ENCOUNTER 2017-10-25 14:00 | Inpatient (IN) | payer OTHER ==
--- NOTE | 2017-10-25 14:24 | PDOC ---
History of Present Illness - General History Source: Care Provider, Old Records Exam Limitations: Other - History of Present Illness Initial Comments: 10/25/17 15:00 The patient is a 27 year old male from [facility], with a significant PMH of epilepsy, G-tube, wheelchair bound, intellectual disability, cerebral palsy, aspiration pneumonia, who presents to the emergency department for evaluation of fever. As per paperwork provided by health aide, the patient has had a fever for 3 days despite receiving Levaquin 750 mg since 10/23/17 for clinical pneumonia. As per documentation a chest x-ray is being requested for reevaluation. Allergies: Multiple allergies. See nursing notes. <Jackson Prieto - Last Filed: 10/25/17 16:36> <Ash Almonte - Last Filed: 10/25/17 16:47> - General Chief Complaint: Shortness of Breath Stated Complaint: RESIRATORY Time Seen by Provider: 10/25/17 14:24 Past History <Jackson Prieto - Last Filed: 10/25/17 16:36> - Past Medical History COPD: No Seizures: Yes (epilepsy, cp,) Other medical history: CONSTIPATION, ASPIRATION PNEUMONIA - Surgical History Abdominal Surgery: Yes (gtube feeding) - Immunization History Immunization Up to Date: Yes - Suicide/Smoking/Psychosocial Hx Smoking History: Never smoked Have you smoked in the past 12 months: No Hx Alcohol Use: No Drug/Substance Use Hx: No Substance Use Type: None <Ash Almonte - Last Filed: 10/25/17 16:47> - Past Medical History Allergies/Adverse Reactions: Allergies Allergy/AdvReac Type Severity Reaction Status Date / Time albuterol Allergy Verified 10/25/17 14:09 Cephalosporins Allergy Verified 10/25/17 14:09 latex Allergy Verified 10/25/17 14:09 Penicillins Allergy Verified 10/25/17 14:09 shrimp Allergy Verified 10/25/17 14:09 wool Allergy Verified 10/25/17 14:09 Home Medications: Ambulatory Orders Carbamazepine 300 mg GT 1200 09/27/17 Carbamazepine 400 mg GT BID 09/27/17 Clobazam [Onfi] 5 mg GT AM 09/27/17 Clobazam [Onfi] 10 mg GT HS 09/27/17 Diazepam Rectal Gel [Diastat Rectal Gel -] 10 mg RC PRN 09/27/17 LORazepam [Ativan] 1 mg GT DAILY PRN 09/27/17 Rufinamide [Banzel] 1,600 mg GT BID 09/27/17 Topiramate [Topamax -] 400 mg GT HS 09/27/17 Topiramate [Topamax] 300 mg GT AM 09/27/17 Zonisamide [Zonegran] 200 mg GT BID 09/27/17 Zonisamide [Zonegran] 250 mg GT HS 09/27/17 Ipratropium 0.02% Nebulizer [Atrovent 0.02% Nebulizer -] 1 amp NEB RQID PRN amp 09/30/17 levoFLOXacin [Levaquin] 750 mg GT DAILY tab 09/30/17 Bisacodyl [Dulcolax] 10 mg RC DAILY PRN 10/25/17 Fluticasone Prop 0.05% Nasal [Flonase -] 1 - 2 spray NS DAILY 10/25/17 Nutritional Supplement [Replete] 250 ml GT ASDIR 10/25/17 Topiramate [Qudexy Xr] 200 mg GT AM 10/25/17 Topiramate [Qudexy Xr] 400 mg GT HS 10/25/17 Review of Systems - Review of Systems Able to Perform ROS?: No <Jackson Prieto - Last Filed: 10/25/17 16:36> *Physical Exam - Vital Signs Last Vital Signs Temp Pulse Resp BP Pulse Ox 88 30 H 101/53 94 L 10/25/17 14:10 10/25/17 14:10 10/25/17 14:10 10/25/17 14:10 - Physical Exam Comments: 10/25/17 16:36 Vitals: Triage vital signs reviewed General Appearance: No acute distress, well nourished, well developed Head: Atraumatic Neck: Supple; No nuchal rigidity Chest Wall: Nontender Cardiac: Regular rate and rhythm, no murmurs, no rubs, no gallops Lungs: +Coarse breath sounds bilaterally. Abdomen: Soft, nondistended, normal bowel sounds, nontender to palpation Rectal: Exam deferred Extremities: Full range of motion to all extremities, no cyanosis, clubbing, or edema Skin: Warm and dry, no rashes or lesions, no rash, no petechiae Psych: Normal mood, normal affect <Jackson Prieto - Last Filed: 10/25/17 16:36> - Vital Signs Last Vital Signs Temp Pulse Resp BP Pulse Ox 88 30 H 101/53 94 L 10/25/17 14:10 10/25/17 14:10 10/25/17 14:10 10/25/17 14:10 <Ash Almonte - Last Filed: 10/25/17 16:47> Heart Score/ECG Review - ECG Impressions Comment:: 10/25/17 16:45 EKG performed at 1520. Demonstrates sinus rhythm bilateral atrial enlargement right axis deviation and incomplete right bundle branch pattern EKG grossly unchanged from prior <Ash Almonte - Last Filed: 10/25/17 16:47> ED Treatment Course - LABORATORY CBC & Chemistry Diagram: 10/25/17 15:20 10/25/17 15:28 <Jackson Prieto - Last Filed: 10/25/17 16:36> - LABORATORY CBC & Chemistry Diagram: 10/25/17 15:20 10/25/17 15:28 <Ash Almonte - Last Filed: 10/25/17 16:47> Medical Decision Making - Medical Decision Making 10/25/17 15:01 The patient is a 27 year old male from [facility], with a significant PMH of epilepsy, G-tube, wheelchair bound, intellectual disability, cerebral palsy, aspiration pneumonia, who presents to the emergency department for evaluation of fever. Plan: EKG, Labs/ blood work, Meds, Chest x-ray. <Jackson Prieto - Last Filed: 10/25/17 16:36> - Medical Decision Making Patient presents to the ED moderate respiratory distress signs and symptoms on clinical examination consistent with aspiration pneumonia patient has failed outpatient Levaquin We'll hydrate treat with Atrovent broad-spectrum antibiotics and admitted for further management Dr. Chaparro to follow labs results and admit patient <Ash Amlonte - Last Filed: 10/25/17 16:47> *DC/Admit/Observation/Transfer - Attestations Scribe Attestion: 10/25/17 15:01 Documentation prepared by Jackson Prieto, acting as medical reimbursement manager for Ash Almonte MD. <Jackson Prieto - Last Filed: 10/25/17 16:36> - Discharge Dispostion Admit: No <Ash Almonte - Last Filed: 10/25/17 16:47> Diagnosis at time of Disposition: PNA (pneumonia) Qualifiers: Pneumonia type: aspiration pneumonia Aspiration pneumonia type: unspecified Laterality: unspecified laterality Lung location: unspecified part of lung Qualified Code(s): J69.0 - Pneumonitis due to inhalation of food and vomit - Referrals Referrals: Luis Miguel Melendez Jr [Primary Care Provider] -
[2017-10-25] MEDS ORDERED: AZTREONAM 2 GM in DEXTROSE 5%-WATER - 100 ML IV ONE (14:41)
[2017-10-25] MEDS ORDERED: VANCOMYCIN 1,000 MG in DEXTROSE 5%-WATER - 250 ML IVPB ONE (14:41)
[2017-10-25] MEDS ORDERED: SODIUM CHLORIDE 0.9% 1000 ML INFUS.BAG IV ONE (14:42)
[2017-10-25] MEDS ORDERED: VANCOMYCIN 1 GRAM (PRE-DOCKED) 1,000 MG/250 ML BAG IVPB ONE (14:48)
[2017-10-25 15:45] LABS: VENOUS PC02 59.4 mmHg (38-52); VENOUS PH 7.29 (7.32-7.42); VENOUS PO2 43.4 mmHg (28-48)
[2017-10-25 15:52] LABS: MEAN PLT VOLUME 7.3 fl (7.5-11.1); WHITE BLOOD COUNT 5.1 K/mm3 (4.0-10.0)
[2017-10-25 15:54] LABS: HEMATOCRIT 43.6 % (35.4-49); MCH 33.3 pg (25.7-33.7); MCHC 34.3 g/dl (32.0-35.9); MEAN CELL VOLUME 96.9 fl (80-96); PLATELET COUNT 141 K/MM3 (134-434); RDW 13.3 % (11.9-15.9)
[2017-10-25 15:55] LABS: URINE APPEARANCE CLEAR; URINE BILIRUBIN NEGATIVE (<2.0 mg/dL); URINE COLOR STRAW; URINE GLUCOSE (UA) NEGATIVE (NEGATIVE); URINE KETONE NEGATIVE (NEGATIVE); URINE LEUK ESTERASE NEGATIVE (NEGATIVE); URINE NITRITE NEGATIVE (NEGATIVE); URINE PROTEIN NEGATIVE (NEGATIVE); URINE UROBILINOGEN NEGATIVE mg/dL (0.2-1.0)
[2017-10-25] MEDS ORDERED: IPRATROPIUM BR 0.02% 0.5 MG/2.5 ML VIAL.NEB. NEB ONE ×2 (16:03→16:04)
[2017-10-25 16:15] LABS: ALBUMIN 3.6 g/dl (3.4-5.0); ANION GAP 6 (8-16); BLOOD UREA NITROGEN 7 mg/dL (7-18); CALCIUM 8.2 mg/dL (8.5-10.1); CHLORIDE 94 mmol/L (98-107); CO2 29 mmol/L (21-32); CREATININE 0.2 mg/dL (0.7-1.3); GLUCOSE,RANDOM 75 mg/dL (74-106); POTASSIUM 3.8 mmol/L (3.5-5.1); SGOT/AST 61 U/L (15-37); SGPT/ALT 95 U/L (12-78); SODIUM 129 mmol/L (136-145)
[2017-10-25 16:17] LABS: ALK PHOS 152 U/L (45-117); BILIRUBIN,TOTAL 0.3 mg/dL (0.2-1.0); TOT PROT 7.5 g/dl (6.4-8.2)
[2017-10-25 16:26] LABS: INR 1.03 (0.82-1.09); PROTHROMBIN TIME (PATIENT) 11.6 SEC (9.7-13.0)
[2017-10-25 16:28] LABS: ACTIVATED PTT 33.8 SECONDS (26.9-34.4)
[2017-10-25 19:14] LABS: ANISOCYTOSIS 1+; MACROCYTOSIS 1+
[2017-10-25 19:15] LABS: PLATELET ESTIMATE ADEQUATE
--- NOTE | 2017-10-25 19:29 | PDOC ---
*Physical Exam - Vital Signs Last Vital Signs Temp Pulse Resp BP Pulse Ox 98.8 F 90 18 122/72 100 10/25/17 15:28 10/25/17 17:17 10/25/17 17:17 10/25/17 17:17 10/25/17 17:17 Heart Score/ECG Review #1 General ECG Interpretation: Normal Rate, No acute ischemic changes Compared to previous ECG there are: Other (rbb, right axis. no change comparison 09/27/17) ED Treatment Course - LABORATORY CBC & Chemistry Diagram: 10/25/17 15:20 10/25/17 15:28 - ADDITIONAL ORDERS Additional order review: Laboratory Results 10/25/17 10/25/17 10/25/17 17:15 15:28 15:28 PT with INR INR PTT (Actin FS) VBG pH POC VBG pCO2 POC VBG pO2 Mixed VBG HCO3 Sodium Potassium Chloride Carbon Dioxide Anion Gap BUN Creatinine Creat Clearance w eGFR Random Glucose Lactic Acid 0.9 Calcium Total Bilirubin AST ALT Alkaline Phosphatase Troponin I < 0.02 Total Protein Albumin Urine Color Straw Urine Appearance Clear Urine pH 7.0 Ur Specific [place] 1.002 Urine Protein Negative Urine Glucose (UA) Negative Urine Ketones Negative Urine Blood 1+ H Urine Nitrite Negative Urine Bilirubin Negative Urine Urobilinogen Negative Ur Leukocyte Esterase Negative Urine WBC (Auto) <1 Urine RBC (Auto) 1 10/25/17 10/25/17 10/25/17 15:28 15:28 15:20 PT with INR 11.60 INR 1.03 PTT (Actin FS) 33.8 D VBG pH 7.29 L POC VBG pCO2 59.4 H D POC VBG pO2 43.4 D Mixed VBG HCO3 27.6 H Sodium 129 L Potassium 3.8 Chloride 94 L D Carbon Dioxide 29 Anion Gap 6 L BUN 7 Creatinine 0.2 L Creat Clearance w eGFR > 60 Random Glucose 75 D Lactic Acid Calcium 8.2 L Total Bilirubin 0.3 AST 61 H D ALT 95 H D Alkaline Phosphatase 152 H Troponin I Total Protein 7.5 D Albumin 3.6 Urine Color Urine Appearance Urine pH Ur Specific [place] Urine Protein Urine Glucose (UA) Urine Ketones Urine Blood Urine Nitrite Urine Bilirubin Urine Urobilinogen Ur Leukocyte Esterase Urine WBC (Auto) Urine RBC (Auto) 10/25/17 15:20 RBC 4.50 D MCV 96.9 H MCHC 34.3 RDW 13.3 MPV 7.3 L Neutrophils % No Result Required. Lymphocytes % No Result Required. - Medications Given in the ED: ED Medications Discontinued Medications Generic Name Dose Route Start Last Admin Trade Name Bria PRN Reason Stop Dose Admin Aztreonam 2 gm/ Dextrose 100 mls @ 100 mls/hr 10/25/17 14:41 10/25/17 15:28 IV 10/25/17 15:40 100 mls/hr ONCE ONE Administration Protocol Vancomycin HCl 1,000 mg/ 250 mls @ 200 mls/hr 10/25/17 14:41 10/25/17 16:12 Dextrose IVPB 10/25/17 15:55 200 mls/hr ONCE ONE Administration Protocol Ipratropium [place] 3 amp 10/25/17 16:04 10/25/17 16:13 Atrovent 0.02% Nebulizer - NEB 10/25/17 16:05 3 amp ONCE ONE Administration Sodium Chloride 2,000 ml 10/25/17 14:42 10/25/17 15:27 Normal Saline - IV 10/25/17 14:43 2,000 ml ONCE ONE Administration Medical Decision Making - Medical Decision Making 10/25/17 19:27 27 yo m h/o cp, peg, epilepsy, at nursing facility, here with fever x 3 days at facility despite being started on levaquin, tachypnea rhonchorous lung exam suspect aspiration pneumonia. cxr difficult to intrepret severe rotation, febrile. treated with vanco and aztreonam. also h/o resistant uti's. nebs and suctioning. pt resp status improved. review labs show hyponatremia, will admit for likley aspiration pna, sepsis, and hyponatremia. 10/25/17 19:54 *DC/Admit/Observation/Transfer Diagnosis at time of Disposition: Hyponatremia PNA (pneumonia) Qualifiers: Pneumonia type: aspiration pneumonia Aspiration pneumonia type: unspecified Laterality: unspecified laterality Lung location: unspecified part of lung Qualified Code(s): J69.0 - Pneumonitis due to inhalation of food and vomit - Discharge Dispostion Admit: Yes - Referrals Referrals: Luis Miguel Melendez Jr [Primary Care Provider] - - Patient Instructions - Post Discharge Activity
--- NOTE | 2017-10-25 20:17 | HP ---
CHIEF COMPLAINT: fever PCP: Dr. Melendez, [facility] HISTORY OF PRESENT ILLNESS: 27yo young man with PMH of cerebral palsy, epilepsy, scoliosis, functional quadriplegia, intellectual disability, and dysphagia s/p GT who presents from [facility] after found to be febrile despite receiving 3 days of Levaquin 750mg (started on 10/23). Last discharged here on 09/30 for aspiration PNA and a 10 day course of Levaquin. ER course was notable for: (1) Tachypnea (RR 30), Tachycardia (100), Rectal Temp 101.7 (2) received 1x Vanc 1gm IV and Aztreonam 2gm IV Recent Travel: none PAST MEDICAL HISTORY: Cerebral palsy Epilepsy Scoliosis PAST SURGICAL HISTORY: GT placement Vagal stimulator, currently deactivated Social History: Smoking: never Alcohol: none Drugs: never Family History: Allergies albuterol Allergy (Verified 10/25/17 14:09) Cephalosporins Allergy (Verified 10/25/17 14:09) latex Allergy (Verified 10/25/17 14:09) Penicillins Allergy (Verified 10/25/17 14:09) shrimp Allergy (Verified 10/25/17 14:09) wool Allergy (Verified 10/25/17 14:09) HOME MEDICATIONS: Home Medications Medication Instructions Recorded Carbamazepine 300 mg GT 1200 09/27/17 Carbamazepine 400 mg GT BID 09/27/17 Clobazam [Onfi] 5 mg GT AM 09/27/17 Clobazam [Onfi] 10 mg GT HS 09/27/17 Diazepam Rectal Gel [Diastat 10 mg RC PRN 09/27/17 Rectal Gel -] LORazepam [Ativan] 1 mg GT DAILY PRN 09/27/17 Rufinamide [Banzel] 1,600 mg GT BID 09/27/17 Topiramate [Topamax -] 400 mg GT HS 09/27/17 Topiramate [Topamax] 300 mg GT AM 09/27/17 Zonisamide [Zonegran] 200 mg GT BID 09/27/17 Zonisamide [Zonegran] 250 mg GT HS 09/27/17 Ipratropium 0.02% Nebulizer 1 amp NEB RQID PRN amp 09/30/17 [Atrovent 0.02% Nebulizer -] levoFLOXacin [Levaquin] 750 mg GT DAILY tab 09/30/17 Bisacodyl [Dulcolax] 10 mg RC DAILY PRN 10/25/17 Fluticasone Prop 0.05% Nasal 1 - 2 spray NS DAILY 10/25/17 [Flonase -] Nutritional Supplement [Replete] 250 ml GT ASDIR 10/25/17 Topiramate [Qudexy Xr] 200 mg GT AM 10/25/17 Topiramate [Qudexy Xr] 400 mg GT HS 10/25/17 REVIEW OF SYSTEMS: unable to obtain PHYSICAL EXAMINATION Vital Signs - 24 hr 10/25/17 10/25/17 10/25/17 14:10 14:40 15:28 Temperature 98.8 F Pulse Rate 88 Pulse Rate [ Apical] Respiratory 30 H Rate Blood Pressure 101/53 Blood Pressure [Right Arm] O2 Sat by Pulse 94 L 100 Oximetry (%) 10/25/17 10/25/17 15:54 17:17 Temperature Pulse Rate Pulse Rate [ 100 H 90 Apical] Respiratory 18 18 Rate Blood Pressure Blood Pressure 117/78 122/72 [Right Arm] O2 Sat by Pulse 100 100 Oximetry (%) GENERAL: Awake, alert, non-verbal, nad HEENT: sclera anicteric, conjunctiva clear, oropharynx clear without exudates, mmm LUNGS: poor inspiratory effort, course breath sounds bilaterally HEART: tachycardia, regular rhythm, normal s1/s2 ABDOMEN: soft, NTND, +bowel sounds, +PEG in LUQ : no suprapubic ttp UPPER EXTREMITIES: contracted bilaterally LOWER EXTREMITIES: 2+ DP pulses, wwp, no edema CBC, BMP 10/25/17 15:20 10/25/17 15:28 Hepatic Panel Total Bilirubin 0.3 mg/dL (0.2-1.0) 10/25/17 15:28 AST 61 U/L (15-37) H D 10/25/17 15:28 ALT 95 U/L (12-78) H D 10/25/17 15:28 Alkaline Phosphatase 152 U/L (45-117) H 10/25/17 15:28 Albumin 3.6 g/dl (3.4-5.0) 10/25/17 15:28 Urine Test Results Urine Color Straw 10/25/17 17:15 Urine Appearance Clear 10/25/17 17:15 Urine pH 7.0 (5.0-8.0) 10/25/17 17:15 Ur Specific [place] 1.002 (1.001-1.035) 10/25/17 17:15 Urine Protein Negative (NEGATIVE) 10/25/17 17:15 Urine Glucose (UA) Negative (NEGATIVE) 10/25/17 17:15 Urine Ketones Negative (NEGATIVE) 10/25/17 17:15 Urine Blood 1+ (NEGATIVE) H 10/25/17 17:15 Urine Nitrite Negative (NEGATIVE) 10/25/17 17:15 Urine Bilirubin Negative (<2.0 mg/dL) 10/25/17 17:15 Ur Leukocyte Esterase Negative (NEGATIVE) 10/25/17 17:15 EKG: NSR, rate 92, biatrial enlargement, RAD, incomplete RBBB, QTc 445; no significant change from prior 09/27/17 Active Medications Acetaminophen (Tylenol Oral Solution -) 650 mg GT Q6H PRN PRN Reason: FEVER Bisacodyl (Dulcolax Suppository -) 10 mg RC DAILY PRN PRN Reason: CONSTIPATION Diazepam (Diastat Rectal Gel -) 10 mg RC PRN BRAD Enoxaparin Sodium (Lovenox -) 40 mg SQ DAILY BRAD Fluticasone Propionate (Flonase -) 1 spray NS DAILY BRAD Sodium Chloride (Normal Saline -) 1,000 mls @ 125 mls/hr IV ASDIR BRAD Ipratropium [place] (Atrovent 0.02% Nebulizer -) 1 amp NEB RQID BRAD Lorazepam (Ativan -) 1 mg GT DAILY PRN PRN Reason: seizure Non-Formulary Medication (Carbamazepine [Carbamazepine]) 300 mg GT 1200 BRAD Non-Formulary Medication (Carbamazepine [Carbamazepine]) 400 mg GT BID BRAD Non-Formulary Medication (Clobazam [Onfi]) 5 mg GT AM BRAD Non-Formulary Medication (Clobazam [Onfi]) 10 mg GT HS BRAD Non-Formulary Medication (Rufinamide [Banzel]) 1,600 mg GT BID BRAD Topiramate (Topamax -) 300 mg GT AM BRAD Topiramate (Topamax -) 400 mg GT HS BRAD Zonisamide (Zonegran -) 200 mg GT BID BRAD Zonisamide (Zonegran -) 250 mg GT HS BRAD ASSESSMENT/PLAN: #sepsis 2/2 suspected aspiration PNA, failed 72H Levaquin -f/u blood and urine cultures -f/u sputum cultures -ID consult, s/p 1x dose Vanc 1gm and Aztreonam 2gm --> start on Clindamycin 300mg IV Q8H -Repeat CXR in AM -Oral suctions Q4H -chest physiotherapy BID -aspiration precautions, HOB elevation -Tylenol PRN for fever #transaminitis,unclear etiology -RUQ U/S -f/u Hepatitis panel -f/u Acetaminophen levels #hyponatremia -129 on admission -NS@125cc/hr #epilepsy, no recent seizures reported -c/w home Topamax, carbamazepine, and Banzel (spoke to param Jayden, to be provided by [facility]) -Ativan PRN for seizure #dysphagia s/p PEG -aspiration precautions, HOB elevated >30 #FEN NS@125cc.hr hypoNa noted Tube Feeds to start in AM #DVT PPX: Lovenox 40mg SQ daily #DISPO: m/s FULL code Visit type - Emergency Visit Emergency Visit: Yes ED Registration Date: 10/25/17 Care time: The patient presented to the Emergency Department on the above date and was hospitalized for further evaluation of their emergent condition. - New Patient This patient is new to me today: Yes Date on this admission: 10/26/17 - Critical Care Critical Care patient: No Hospitalist Screening - Colonoscopy Questionnaire Colonoscopy Questionnaire: Colonoscopy Questionnaire - Patient: 50 - 75 years old and never had a screening colonoscopy: No History of colon or rectal polyps, or CA: Unknown History of IBD, Crohn's disease or UC: No History of abdominal radiation therapy as a child: No - Relative: 1 with colon or rectal CA, or polyps at age 60 or younger: Unknown Colon or rectal CA diagnosed at age 45 or younger: Unknown Multiple relatives with colon or rectal CA: Unknown - Outcome: Screening Result: Negative Screen
[2017-10-25] MEDS ORDERED: BISACODYL 10 MG SUPP.RECT RC PRN (21:18)
[2017-10-25] MEDS ORDERED: LORazepam 1 MG TABLET GT PRN (21:18)
[2017-10-25] MEDS ORDERED: NUTRITIONAL SUPPLEMENT GT SCH (21:30)
[2017-10-25] MEDS ORDERED: diazePAM ACUDIAL 5-7.5-10 MG 1 EACH KIT RC PRN (21:30)
[2017-10-25] MEDS ORDERED: ZONISAMIDE 100 MG CAPSULE GT SCH (22:00)
[2017-10-25] MEDS: SODIUM CHLORIDE 1,000 ML IV SCH (22:41)
[2017-10-25] MEDS ORDERED: ACETAMINOPHEN 160 MG/5 ML 473ML BULK BOTTLE ONE (22:45)
[2017-10-25] MEDS ORDERED: AZTREONAM 2 GM in DEXTROSE 5%-WATER 100 ML IVPB ONE (23:00)
[2017-10-25] MEDS: ZONISAMIDE 100 MG CAPSULE GT SCH (23:12)
[2017-10-25] MEDS: TOPIRAMATE 200 MG TABLET (FP) GT SCH (23:12)
--- NOTE | 2017-10-26 00:51 | PN ---
Teaching Attending Note Name of Resident: Argentina Rose ATTENDING PHYSICIAN STATEMENT I saw and evaluated the patient. Chart, data, imaging reviewed. I reviewed the resident's note and discussed the case with the resident. I agree with the resident's findings and plan as documented. SUBJECTIVE: 27yo man with PMH of cerebral palsy, epilepsy, scoliosis, intellectual disability, AICD?(seen on CXR), and s/p G-tube placement, recurrent aspirations , who presented from [facility] after found to be febrile- with reportedly up to 102F. Started levofloxacin for 2 days. D/c from [facility] last september after being treated for aspiration pneumonia. OBJECTIVE: Last Vital Signs Temp Pulse Resp BP Pulse Ox 101.7 F H 122 H 20 122/78 98 10/25/17 23:32 10/25/17 23:32 10/25/17 23:32 10/25/17 23:32 10/25/17 23:32 general- diaphoretic, nontoxic appearing, noncommunicative heent- moist oral mucosa neck -supple, no neck masses cv -s1+s2+ tachycardia chest- coarse breath sounds b/l abdomen -soft, nt, bs+, PEG site appears nonerythematous ext- atrophied lower extremities skin- intact, no decubitus ulcer as per nursing Abnormal Lab Results 10/25/17 10/25/17 10/25/17 15:20 15:28 15:28 MCV 96.9 H MPV 7.3 L Monocytes % (Manual) 21 H VBG pH 7.29 L POC VBG pCO2 59.4 H D Mixed VBG HCO3 27.6 H Sodium 129 L Chloride 94 L D Anion Gap 6 L Creatinine 0.2 L Calcium 8.2 L AST 61 H D ALT 95 H D Alkaline Phosphatase 152 H Urine Blood 10/25/17 17:15 MCV MPV Monocytes % (Manual) VBG pH POC VBG pCO2 Mixed VBG HCO3 Sodium Chloride Anion Gap Creatinine Calcium AST ALT Alkaline Phosphatase Urine Blood 1+ H CXR- reviewed, AICD, hardware in spine, scoliosis, rotated, poor quality ASSESSMENT AND PLAN: #Aspiration pneumonia -hold tube feeds for now, can restart in the morning at a slower rate -supplemental oxygen via nasal cannula -clindamycin 300mg IV q8hrs to cover oral lorelei (has penicillin allergy) -respiratory check q 4hrs for now -if fevers, send blood cultures x2 #Hyponatremia, hypochloremia -uncertain etiology -start gentle IV fluid hydration with NS -will repeat chemistry in am labs #transaminitis -liver u/s -hepatitis panel -tylenol level -trend LFTs -restart home medications #DVT prophylaxis - heparin sc
[2017-10-26] MEDS: cloBAZam 10 MG TABLET PO SCH ×3 (01:15→21:08)
[2017-10-26] MEDS: CLINDAMYCIN 300 MG PREMIX IVPB 300 MG/50 ML BAG IVPB SCH ×2 (03:48→10:37)
[2017-10-26] MEDS ORDERED: PT OWN MED DRAWER 7, Y5N ONE ×4 (05:48→18:17)
[2017-10-26] MEDS: ACETAMINOPHEN 650 MG/20.3 ML ORAL SOLUTION (CUPS) GT PRN ×2 (06:46→15:25)
[2017-10-26] MEDS: TOPIRAMATE 100 MG TABLET GT SCH (06:47)
[2017-10-26] MEDS: IPRATROPIUM BR 0.02% 0.5 MG/2.5 ML VIAL.NEB. NEB SCH ×4 (08:09→21:06)
[2017-10-26 08:26] LABS: ANION GAP 8 (8-16); BLOOD UREA NITROGEN 5 mg/dL (7-18); CALCIUM 7.8 mg/dL (8.5-10.1); CHLORIDE 103 mmol/L (98-107); CO2 26 mmol/L (21-32); CREATININE 0.2 mg/dL (0.7-1.3); GLUCOSE,RANDOM 108 mg/dL (74-106); SODIUM 137 mmol/L (136-145)
--- NOTE | 2017-10-26 08:30 | PN ---
Physical Exam: SUBJECTIVE: Patient seen and examined Patient is lying in bed with no acute distress, looks comfortable OBJECTIVE: Vital Signs Temperature 101.8 F H 10/26/17 06:00 Pulse Rate 115 H 10/26/17 06:00 Respiratory Rate 24 10/26/17 06:00 Blood Pressure 131/69 10/26/17 06:00 O2 Sat by Pulse Oximetry (%) 98 10/25/17 23:32 GENERAL: The patient is awake, alert, and fully oriented, in no acute distress. HEAD: Normal with no signs of trauma. EYES: PERRL, extraocular movements intact, sclera anicteric, conjunctiva clear. ENT: Ears normal, oropharynx clear without exudates, moist mucous membranes. NECK: Trachea midline, full range of motion, supple. LUNGS: Breath sounds equal, clear to auscultation bilaterally, no wheezes, no crackles, no accessory muscle use. HEART: Regular rate and rhythm, S1, S2 without murmur, rub or gallop. ABDOMEN: Soft, nontender, nondistended, normoactive bowel sounds, no guarding, no rebound, no hepatosplenomegaly, no masses. EXTREMITIES: 2+ pulses, warm, well-perfused, no edema. NEUROLOGICAL: Cranial nerves II through XII grossly intact. Normal speech, gait not observed. PSYCH: Normal mood, normal affect. SKIN: Warm, dry, normal turgor, no rashes or lesions noted CBCD WBC 5.1 K/mm3 (4.0-10.0) 10/25/17 15:20 RBC 4.50 M/mm3 (4.00-5.60) D 10/25/17 15:20 Hgb 15.0 GM/dL (11.7-16.9) D 10/25/17 15:20 Hct 43.6 % (35.4-49) D 10/25/17 15:20 MCV 96.9 fl (80-96) H 10/25/17 15:20 MCHC 34.3 g/dl (32.0-35.9) 10/25/17 15:20 RDW 13.3 % (11.9-15.9) 10/25/17 15:20 Plt Count 141 K/MM3 (134-434) D 10/25/17 15:20 MPV 7.3 fl (7.5-11.1) L 10/25/17 15:20 CMP Sodium 129 mmol/L (136-145) L 10/25/17 15:28 Potassium 3.8 mmol/L (3.5-5.1) 10/25/17 15:28 Chloride 94 mmol/L (98-107) L D 10/25/17 15:28 Carbon Dioxide 29 mmol/L (21-32) 10/25/17 15:28 Anion Gap 6 (8-16) L 10/25/17 15:28 BUN 7 mg/dL (7-18) 10/25/17 15:28 Creatinine 0.2 mg/dL (0.7-1.3) L 10/25/17 15:28 Creat Clearance w eGFR > 60 (>60) 10/25/17 15:28 Random Glucose 75 mg/dL (74-106) D 10/25/17 15:28 Calcium 8.2 mg/dL (8.5-10.1) L 10/25/17 15:28 Total Bilirubin 0.3 mg/dL (0.2-1.0) 10/25/17 15:28 AST 61 U/L (15-37) H D 10/25/17 15:28 ALT 95 U/L (12-78) H D 10/25/17 15:28 Alkaline Phosphatase 152 U/L (45-117) H 10/25/17 15:28 Total Protein 7.5 g/dl (6.4-8.2) D 10/25/17 15:28 Albumin 3.6 g/dl (3.4-5.0) 10/25/17 15:28 CARDIAC ENZYMES Troponin I < 0.02 ng/ml (0.00-0.05) 10/25/17 15:28 Active Medications Generic Name Dose Route Start Last Admin Trade Name Freq PRN Reason Stop Dose Admin Acetaminophen 650 mg 10/25/17 21:23 10/26/17 06:46 Tylenol Oral Solution - GT 650 mg Q6H PRN Administration FEVER Bisacodyl 10 mg 10/25/17 21:18 Dulcolax Suppository - RC DAILY PRN CONSTIPATION Carbamazepine 300 mg 10/26/17 12:00 Tegretol Oral Suspension - GT DAILY@1200 BRAD Carbamazepine 400 mg 10/26/17 08:00 Tegretol Oral Suspension - GT BID@0800,1830 BRAD Clobazam 5 mg 10/26/17 07:00 10/26/17 06:47 Onfi - PO 5 mg AM BRAD Administration Clobazam 10 mg 10/25/17 22:00 10/26/17 01:15 Onfi - PO 10 mg HS BRAD Administration Diazepam 10 mg 10/25/17 21:30 Diastat Rectal Gel - RC DAILY PRN SEIZURES Enoxaparin Sodium 40 mg 10/26/17 10:00 Lovenox - SQ DAILY BRAD Fluticasone Propionate 1 spray 10/26/17 10:00 Flonase - NS DAILY BRAD Sodium Chloride 1,000 mls @ 125 mls/hr 10/25/17 21:30 10/25/17 22:41 Normal Saline - IV 125 mls/hr ASDIR BRAD Administration Clindamycin Phosphate 300 mg in 50 mls @ 104 mls/hr 10/26/17 02:00 10/26/17 03:48 Cleocin 300 Mg Premix Ivpb IVPB 104 mls/hr Q8H-IV BRAD Administration Protocol Ipratropium [place] 1 amp 10/26/17 08:00 10/26/17 08:09 Atrovent 0.02% Nebulizer - NEB 1 amp RQID BRAD Administration Lorazepam 1 mg 10/25/17 21:18 Ativan - GT DAILY PRN seizure Non-Formulary Medication 1,600 mg 10/25/17 22:00 Rufinamide [Banzel] GT BID BRAD Topiramate 300 mg 10/26/17 07:00 10/26/17 06:47 Topamax - GT 300 mg AM BRAD Administration Topiramate 400 mg 10/25/17 22:00 10/25/17 23:12 Topamax - GT 400 mg HS BRAD Administration Zonisamide 200 mg 10/25/17 22:00 10/25/17 23:12 Zonegran - GT 200 mg BID BRAD Administration Home Medications Medication Instructions Recorded Carbamazepine 300 mg GT 1200 09/27/17 Carbamazepine 400 mg GT BID 09/27/17 Clobazam [Onfi] 5 mg GT AM 09/27/17 Clobazam [Onfi] 10 mg GT HS 09/27/17 Diazepam Rectal Gel [Diastat 10 mg RC PRN 09/27/17 Rectal Gel -] LORazepam [Ativan] 1 mg GT DAILY PRN 04/06/18 Rufinamide [Banzel] 1,600 mg GT BID 09/27/17 Topiramate [Topamax -] 400 mg GT HS 09/27/17 Topiramate [Topamax] 300 mg GT AM 09/27/17 Zonisamide [Zonegran] 200 mg GT BID 09/27/17 Zonisamide [Zonegran] 250 mg GT HS 09/27/17 Ipratropium 0.02% Nebulizer 1 amp NEB RQID PRN amp 09/30/17 [Atrovent 0.02% Nebulizer -] levoFLOXacin [Levaquin] 750 mg GT DAILY tab 09/30/17 Bisacodyl [Dulcolax] 10 mg RC DAILY PRN 10/25/17 Fluticasone Prop 0.05% Nasal 1 - 2 spray NS DAILY 10/25/17 [Flonase -] Nutritional Supplement [Replete] 250 ml GT ASDIR 10/25/17 Topiramate [Qudexy Xr] 200 mg GT AM 10/25/17 Topiramate [Qudexy Xr] 400 mg GT HS 10/25/17 ASSESSMENT/PLAN: Patient is a 27yo young man with PMH of cerebral palsy, epilepsy, scoliosis, functional quadriplegia, intellectual disability, and dysphagia s/p GT who presents from [facility] after found to be febrile despite receiving 3 days of Levaquin 750mg (started on 10/23). # Sepsis due to most likely aspiration pneumonia , blood culture was order, f/u blood and urine cultures, f/u sputum cultures, ID consult , given a dose of Vanc 1gm and Aztreonam 2gm in Ed as pe rr ID to start the patient on Clindamycin 300mg IV Q8H, elevate HOB to 30-45 degrees to prevent aspiration .Tylenol PRN for fever #transaminitis, elevated will monitor #hyponatremia of 129 , on IVF NS@125cc/hr #epilepsy, continue current meds. #dysphagia s/p PEG aspiration precautions, HOB elevated >30 #DVT PPX: Lovenox 40mg SQ daily FULL code Visit type - Emergency Visit Emergency Visit: Yes ED Registration Date: 10/25/17 Care time: The patient presented to the Emergency Department on the above date and was hospitalized for further evaluation of their emergent condition. - New Patient This patient is new to me today: Yes Date on this admission: 10/28/17 - Critical Care Critical Care patient: No - Discharge Referral Referred to [facility] Med P.C.: No
[2017-10-26 08:50] LABS: ALBUMIN 2.9 g/dl (3.4-5.0); SGPT/ALT 87 U/L (12-78)
[2017-10-26 09:03] LABS: ACETAMINOPHEN 15.419 ug/mL; ALK PHOS 114 U/L (45-117); BILIRUBIN,TOTAL 0.3 mg/dL (0.2-1.0); TOT PROT 6.1 g/dl (6.4-8.2)
[2017-10-26 09:16] LABS: BILIRUBIN,DIRECT < 0.2 mg/dL (0.0-0.2)
[2017-10-26 09:17] LABS: SGOT/AST 60 U/L (15-37)
[2017-10-26 09:27] LABS: BASO % 0.6 % (0-2.0); EOS % 0.1 % (0-4.5); HEMATOCRIT 37.5 % (35.4-49); HEMOGLOBIN 12.5 GM/dL (11.7-16.9); LYMPH % 34.3 % (8-40); MCH 32.8 pg (25.7-33.7); MCHC 33.4 g/dl (32.0-35.9); MEAN CELL VOLUME 98.2 fl (80-96); MEAN PLT VOLUME 7.2 fl (7.5-11.1); MONO % 13.9 % (3.8-10.2); NEUT % 51.1 % (42.8-82.8); PLATELET COUNT 126 K/MM3 (134-434); RBC 3.83 M/mm3 (4.00-5.60); RDW 13.4 % (11.9-15.9); WHITE BLOOD COUNT 4.7 K/mm3 (4.0-10.0)
[2017-10-26] MEDS: ENOXAPARIN NA (PORCINE) 40 MG/0.4 ML DISP.SYRIN SQ SCH (10:38)
[2017-10-26] MEDS: ZONISAMIDE 100 MG CAPSULE GT SCH (10:38)
[2017-10-26] MEDS: carBAMazepine 200 MG/10 ML UNIT-DOSE CUP GT SCH ×3 (10:38→18:21)
--- NOTE | 2017-10-26 14:26 | PN ---
Progress Note (short form) - Note Progress Note: ID Consult dictated RLL pneumonia Possible sepsis secondary to pneumonia PCN/CP allergies CP/MR Pending sepsis workup, empiric vancomycin/ aztreonam
--- NOTE | 2017-10-26 14:35 | EKG ---
Test Reason : Blood Pressure : / mmHG Vent. Rate : 092 BPM Atrial Rate : 092 BPM P-R Int : 152 ms QRS Dur : 096 ms QT Int : 360 ms P-R-T Axes : 054 140 054 degrees QTc Int : 445 ms NORMAL SINUS RHYTHM BIATRIAL ENLARGEMENT RIGHT AXIS DEVIATION PULMONARY DISEASE PATTERN INCOMPLETE RIGHT BUNDLE BRANCH BLOCK RIGHT VENTRICULAR HYPERTROPHY ABNORMAL ECG WHEN COMPARED WITH ECG OF 27-SEP-2017 17:50, MINIMAL CRITERIA FOR ANTERIOR INFARCT ARE NO LONGER PRESENT NO SIGNIFICANT CHANGE WAS FOUND Confirmed by MD Yovani, Yoel ([id number]) on 10/26/2017 2:35:15 PM Referred By: Confirmed By:Yoel Pina MD
--- NOTE | 2017-10-26 14:52 | CONS ---
DATE OF CONSULTATION: DATE OF DICTATION: 10/26/2017 INFECTIOUS DISEASE CONSULTATION HISTORY OF PRESENT ILLNESS: The patient is a 27-year-old male, resident of [facility], evaluated for pneumonia. History was obtained from the chart, as he cannot give a history. According to the notes, he had developed fever for the past 3 days at that facility. Despite being treated with Levaquin, he continued to have fever. In addition, the patient was noted to have labored breathing and congestion. He was admitted to the hospital, where chest x-ray showed increased markings at the right base. He was empirically treated with vancomycin and Azactam. HE HAS A HISTORY OF PENICILLIN AND CEPHALOSPORIN ALLERGIES. PAST MEDICAL HISTORY: Positive for cerebral palsy, mental retardation, seizure disorder. PAST SURGICAL HISTORY: Status post feeding gastrostomy. ALLERGIES: PENICILLIN, CEPHALOSPORINS. MEDICATIONS: Include Banzel, Tylenol, Lovenox, Tegretol, Topamax, Ativan, Flonase. SOCIAL HISTORY: He is a resident of [facility]. He is wheelchair bound. No active tobacco or alcohol use. REVIEW OF SYSTEMS: Neurologic: As per HPI. Cardiac: Negative for chest pain or palpitations. Respiratory: As per HPI. Gastrointestinal: Status post feeding gastrostomy. Genitourinary: Negative for urinary tract infection. LABORATORY DATA: White count 4.7, neutrophils 51, lymphocytes 34, monocytes 13, hematocrit 37.5, platelets 126. BUN 5, creatinine 0.2. AST 60, ALT 87. Urinalysis: Less than 1 white cell. Blood and urine cultures are pending. PHYSICAL EXAMINATION: General: He is awake. He is not verbally responsive. Vital Signs: Temperature 101.8, blood pressure 131/69, pulse 115 and regular, respirations 24 per minute. HEENT: Sclerae anicteric. Cardiac: Heart sounds S1, S2. Tachycardic. Lungs: Coarse rhonchi bilaterally. Abdomen: Soft. No tenderness elicited. A feeding gastrostomy tube is in place. Extremities: One plus edema. IMPRESSION: 1. Right lower lobe pneumonia, possible aspiration. 2. Possible sepsis secondary to pneumonia. 3. PENICILLIN AND CEPHALOSPORIN ALLERGIES. 4. Cerebral palsy. 5. Mental retardation. PLAN: Pending sepsis workup. Empiric antibiotic coverage with vancomycin and Azactam. Obtain urine Legionella and pneumococcal antigens. Influenza swab. Aspiration precautions. I will follow. Thank you for the kind referral. ALFRED WALLS M.D. SHAILA/[id number]
[2017-10-26] MEDS ORDERED: VANCOMYCIN 1,000 MG in DEXTROSE 5%-WATER - 250 ML IVPB ONE (16:00)
[2017-10-26] MEDS: VANCOMYCIN 1 GM PREMIX - 1 GM/200 ML BAG IVPB SCH ×2 (16:30→16:34)
[2017-10-26] MEDS: AZTREONAM 1 GM in DEXTROSE 5%-WATER - 50 ML IVPB SCH (18:21)
[2017-10-26] MEDS: FLUTICASONE PROP 0.05% 16 GM NASAL SPRAY NS SCH (19:21)
[2017-10-26] MEDS: SODIUM CHLORIDE 1,000 ML IV SCH (21:09)
[2017-10-26] MEDS: TOPIRAMATE 200 MG TABLET (FP) GT SCH (21:09)
[2017-10-26] MEDS: ZONISAMIDE 100 MG/10 ML ORAL SUSPENSION GT SCH (21:10)
[2017-10-27] MEDS: AZTREONAM 1 GM in DEXTROSE 5%-WATER - 50 ML IVPB SCH ×3 (01:20→17:43)
[2017-10-27] MEDS: VANCOMYCIN 1 GM PREMIX - 1 GM/200 ML BAG IVPB SCH ×2 (03:00→16:09)
[2017-10-27] MEDS: cloBAZam 10 MG TABLET PO SCH ×2 (06:38→22:30)
[2017-10-27] MEDS: TOPIRAMATE 100 MG TABLET GT SCH (06:39)
[2017-10-27] MEDS: ACETAMINOPHEN 650 MG/20.3 ML ORAL SOLUTION (CUPS) GT PRN ×3 (06:39→23:04)
[2017-10-27] MEDS: IPRATROPIUM BR 0.02% 0.5 MG/2.5 ML VIAL.NEB. NEB SCH ×4 (07:48→20:23)
[2017-10-27] MEDS ORDERED: PT OWN MED DRAWER 7, Y5N ONE ×4 (08:36→17:42)
[2017-10-27] MEDS: carBAMazepine 200 MG/10 ML UNIT-DOSE CUP GT SCH ×3 (08:49→17:43)
[2017-10-27] MEDS: FLUTICASONE PROP 0.05% 16 GM NASAL SPRAY NS SCH (10:09)
[2017-10-27] MEDS: ENOXAPARIN NA (PORCINE) 40 MG/0.4 ML DISP.SYRIN SQ SCH (10:10)
[2017-10-27] MEDS: ZONISAMIDE 100 MG/10 ML ORAL SUSPENSION GT SCH ×2 (10:11→22:31)
[2017-10-27 11:23] VITALS: BMI 24.6
--- NOTE | 2017-10-27 11:35 | PN ---
Progress Note, Physician History of Present Illness: Awake, non-verbal Breathing appears less labored today but still very congested No cough noted Remains febrile - Current Medication List Current Medications: Active Medications Acetaminophen (Tylenol Oral Solution -) 650 mg GT Q6H PRN PRN Reason: FEVER Last Admin: 10/27/17 06:39 Dose: 650 mg Bisacodyl (Dulcolax Suppository -) 10 mg RC DAILY PRN PRN Reason: CONSTIPATION Carbamazepine (Tegretol Oral Suspension -) 300 mg GT DAILY@1200 [facility] Last Admin: 10/26/17 12:56 Dose: 300 mg Carbamazepine (Tegretol Oral Suspension -) 400 mg GT BID@0800,1830 [facility] Last Admin: 10/27/17 08:49 Dose: 400 mg Clobazam (Onfi -) 5 mg PO AM [facility] Last Admin: 10/27/17 06:38 Dose: 5 mg Clobazam (Onfi -) 10 mg PO HS [facility] Last Admin: 10/26/17 21:08 Dose: 10 mg Diazepam (Diastat Rectal Gel -) 10 mg RC DAILY PRN PRN Reason: SEIZURES Enoxaparin Sodium (Lovenox -) 40 mg SQ DAILY [facility] Last Admin: 10/27/17 10:10 Dose: 40 mg Fluticasone Propionate (Flonase -) 1 spray NS DAILY [facility] Last Admin: 10/27/17 10:09 Dose: 1 spray Sodium Chloride (Normal Saline -) 1,000 mls @ 125 mls/hr IV ASDIR [facility] Last Admin: 10/26/17 21:09 Dose: 125 mls/hr Vancomycin HCl (Vancomycin 1 Gm Premix -) 1 gm in 200 mls @ 133.333 mls/hr IVPB 0300,1500 BRAD PRN Reason: Protocol Last Admin: 10/27/17 03:00 Dose: 133.333 mls/hr Aztreonam 1 gm/ Dextrose 50 mls @ 100 mls/hr IVPB Q8H-IV BRAD PRN Reason: Protocol Last Admin: 10/27/17 10:09 Dose: 100 mls/hr Ipratropium [place] (Atrovent 0.02% Nebulizer -) 1 amp NEB RQID [facility] Lorazepam (Ativan -) 1 mg GT DAILY PRN PRN Reason: seizure Non-Formulary Medication (Rufinamide [Banzel]) 1,600 mg GT BID [facility] Topiramate (Topamax -) 300 mg GT AM BRAD Last Admin: 10/27/17 06:39 Dose: 300 mg Topiramate (Topamax -) 400 mg GT HS BRAD Last Admin: 10/26/17 21:09 Dose: 400 mg Zonisamide (Zonisamide) 200 mg GT BID [facility] Last Admin: 10/27/17 10:11 Dose: 200 mg - Objective Vital Signs: Vital Signs Temperature 100.3 F H 10/27/17 06:21 Pulse Rate 104 H 10/27/17 06:21 Respiratory Rate 20 10/27/17 06:21 Blood Pressure 120/64 10/27/17 06:21 O2 Sat by Pulse Oximetry (%) 98 10/26/17 21:00 Constitutional: Yes: Mild Distress Cardiovascular: Yes: Regular Rate and Rhythm, S1, S2 Respiratory: Yes: Rhonchi Gastrointestinal: Yes: Normal Bowel Sounds, Soft. No: Tenderness Edema: Yes Edema: LLE: 1+, RLE: 1+ Labs: CBC, BMP 10/26/17 07:45 10/26/17 07:45 INR, PTT INR 1.03 (0.82-1.09) 10/25/17 15:20 Assessment/Plan RLL pneumonia Possible sepsis secondary to pneumonia PCN/ Cephalosporin allergies CP/MR Await c/s Continue empiric vancomycin/ aztreonam
--- NOTE | 2017-10-27 20:48 | PN ---
Teaching Attending Note Name of Resident: Cisco Nugent ATTENDING PHYSICIAN STATEMENT I saw and evaluated the patient. I reviewed the resident's note and discussed the case with the resident. I agree with the resident's findings and plan as documented. SUBJECTIVE: Patient is still febrile. OBJECTIVE: Vital Signs Temperature 101.8 F H 10/27/17 18:00 Pulse Rate 126 H 10/27/17 18:00 Respiratory Rate 22 10/27/17 18:00 Blood Pressure 123/64 10/27/17 18:00 O2 Sat by Pulse Oximetry (%) 97 10/27/17 09:00 GENERAL: opens his eyes on and off, awake on and off , but not oriented , in mild distress. HEAD: Normal with no signs of trauma. EYES: PERRL, extraocular movements intact, sclera anicteric, conjunctiva clear. ENT: Ears normal, oropharynx clear without exudates, moist mucous membranes. NECK: Trachea midline, full range of motion, supple. LUNGS: decreased Breath sounds bl, positive for rhonci no accessory muscle use. HEART: tachycardic , S1, S2 without murmur, rub or gallop. ABDOMEN: Soft, nontender, nondistended, normoactive bowel sounds, no guarding, no rebound, no hepatosplenomegaly, no masses. EXTREMITIES: 2+ pulses, warm, well-perfused, no edema. NEUROLOGICAL:cannot assess . PSYCH: unable to access SKIN: Warm, dry, normal turgor, no rashes or lesions noted CBCD WBC 4.7 K/mm3 (4.0-10.0) 10/26/17 07:45 RBC 3.83 M/mm3 (4.00-5.60) L 10/26/17 07:45 Hgb 12.5 GM/dL (11.7-16.9) D 10/26/17 07:45 Hct 37.5 % (35.4-49) 10/26/17 07:45 MCV 98.2 fl (80-96) H 10/26/17 07:45 MCHC 33.4 g/dl (32.0-35.9) 10/26/17 07:45 RDW 13.4 % (11.9-15.9) 10/26/17 07:45 Plt Count 126 K/MM3 (134-434) L 10/26/17 07:45 MPV 7.2 fl (7.5-11.1) L 10/26/17 07:45 CMP Sodium 137 mmol/L (136-145) 10/26/17 07:45 Potassium 4.0 mmol/L (3.5-5.1) 10/26/17 07:45 Chloride 103 mmol/L (98-107) 10/26/17 07:45 Carbon Dioxide 26 mmol/L (21-32) 10/26/17 07:45 Anion Gap 8 (8-16) 10/26/17 07:45 BUN 5 mg/dL (7-18) L D 10/26/17 07:45 Creatinine 0.2 mg/dL (0.7-1.3) L 10/26/17 07:45 Creat Clearance w eGFR > 60 (>60) 10/25/17 15:28 Random Glucose 108 mg/dL (74-106) H D 10/26/17 07:45 Calcium 7.8 mg/dL (8.5-10.1) L 10/26/17 07:45 Total Bilirubin 0.3 mg/dL (0.2-1.0) 10/26/17 07:45 AST 60 U/L (15-37) H 10/26/17 07:45 ALT 87 U/L (12-78) H 10/26/17 07:45 Alkaline Phosphatase 114 U/L (45-117) D 10/26/17 07:45 Total Protein 6.1 g/dl (6.4-8.2) L 10/26/17 07:45 Albumin 2.9 g/dl (3.4-5.0) L 10/26/17 07:45 CARDIAC ENZYMES Troponin I < 0.02 ng/ml (0.00-0.05) 10/25/17 15:28 Current Medications Generic Name Dose Route Start Last Admin Trade Name Freq PRN Reason Stop Dose Admin Acetaminophen 650 mg 10/25/17 21:23 10/27/17 17:43 Tylenol Oral Solution - GT 650 mg Q6H PRN Administration FEVER Bisacodyl 10 mg 10/25/17 21:18 Dulcolax Suppository - RC DAILY PRN CONSTIPATION Carbamazepine 300 mg 10/26/17 12:00 10/27/17 14:24 Tegretol Oral Suspension - GT 300 mg DAILY@1200 BRAD Administration Carbamazepine 400 mg 10/26/17 08:00 10/27/17 17:43 Tegretol Oral Suspension - GT 400 mg BID@0800,1830 BRAD Administration Clobazam 5 mg 10/26/17 07:00 10/27/17 06:38 Onfi - PO 5 mg AM BRAD Administration Clobazam 10 mg 10/25/17 22:00 10/26/17 21:08 Onfi - PO 10 mg HS BRAD Administration Diazepam 10 mg 10/25/17 21:30 Diastat Rectal Gel - RC DAILY PRN SEIZURES Enoxaparin Sodium 40 mg 10/26/17 10:00 10/27/17 10:10 Lovenox - SQ 40 mg DAILY BRAD Administration Fluticasone Propionate 1 spray 10/26/17 10:00 10/27/17 10:09 Flonase - NS 1 spray DAILY BRAD Administration Sodium Chloride 1,000 mls @ 125 mls/hr 10/25/17 21:30 10/26/17 21:09 Normal Saline - IV 125 mls/hr ASDIR BRAD Administration Vancomycin HCl 1 gm in 200 mls @ 133.333 mls/hr 10/26/17 14:30 10/27/17 16:09 Vancomycin 1 Gm Premix - IVPB 133.333 mls/hr 0300,1500 BRAD Administration Protocol Aztreonam 1 gm/ Dextrose 50 mls @ 100 mls/hr 10/26/17 18:00 10/27/17 17:43 IVPB 100 mls/hr Q8H-IV BRAD Administration Protocol Ipratropium [place] 1 amp 10/27/17 12:00 10/27/17 20:23 Atrovent 0.02% Nebulizer - NEB 1 amp RQID BRAD Administration Lorazepam 1 mg 10/25/17 21:18 Ativan - GT DAILY PRN seizure Non-Formulary Medication 1,600 mg 10/25/17 22:00 Rufinamide [Banzel] GT BID BRAD Topiramate 300 mg 10/26/17 07:00 10/27/17 06:39 Topamax - GT 300 mg AM BRAD Administration Topiramate 400 mg 10/25/17 22:00 10/26/17 21:09 Topamax - GT 400 mg HS BRAD Administration Zonisamide 200 mg 10/26/17 15:17 10/27/17 10:11 Zonisamide GT 200 mg BID BRAD Administration Home Medications Medication Instructions Recorded Carbamazepine 300 mg GT 1200 09/27/17 Carbamazepine 400 mg GT BID 09/27/17 Clobazam [Onfi] 5 mg GT AM 09/27/17 Clobazam [Onfi] 10 mg GT HS 09/27/17 Diazepam Rectal Gel [Diastat 10 mg RC PRN 09/27/17 Rectal Gel -] LORazepam [Ativan] 1 mg GT DAILY PRN 09/27/17 Rufinamide [Banzel] 1,600 mg GT BID 09/27/17 Topiramate [Topamax -] 400 mg GT HS 09/27/17 Topiramate [Topamax] 300 mg GT AM 09/27/17 Zonisamide [Zonegran] 200 mg GT BID 09/27/17 Zonisamide [Zonegran] 250 mg GT HS 09/27/17 Ipratropium 0.02% Nebulizer 1 amp NEB RQID PRN amp 09/30/17 [Atrovent 0.02% Nebulizer -] levoFLOXacin [Levaquin] 750 mg GT DAILY tab 09/30/17 Bisacodyl [Dulcolax] 10 mg RC DAILY PRN 10/25/17 Fluticasone Prop 0.05% Nasal 1 - 2 spray NS DAILY 10/25/17 [Flonase -] Nutritional Supplement [Replete] 250 ml GT ASDIR 10/25/17 Topiramate [Qudexy Xr] 200 mg GT AM 10/25/17 Topiramate [Qudexy Xr] 400 mg GT HS 10/25/17 Microbiology 10/25/17 15:28 Blood - Peripheral Venous Blood Culture - Preliminary NO GROWTH OBTAINED AFTER 48 HOURS, INCUBATION TO CONTINUE FOR 3 DAYS. 10/25/17 15:28 Blood - Peripheral Venous Blood Culture - Preliminary NO GROWTH OBTAINED AFTER 48 HOURS, INCUBATION TO CONTINUE FOR 3 DAYS. 10/25/17 15:20 Urine - Urine Clean Catch Urine Culture - Final Enterococcus Faecalis 10/26/17 09:19 Sputum - Expectorated Sputum Culture - Preliminary NORMAL RESPIRATORY BENSON 10/26/17 15:15 Nasopharyngeal Swab Influenza Types A,B Antigen (RADHA) - Final 10/26/17 15:15 Nasopharyngeal Swab - Final ASSESSMENT AND PLAN: Patient is a 27yo young man with PMH of cerebral palsy, epilepsy, scoliosis, functional quadriplegia, intellectual disability, and dysphagia s/p GT who presents from [facility] after found to be febrile despite receiving 3 days of Levaquin 750mg (started on 10/23). # Sepsis due to most likely aspiration pneumonia , blood culture was order, so far blood culture is negative and urine cultures positve for enterococi fecaelis , sputum cultures negative so far , ID on the case, on Vanc . aztreonam and clindamycin . elevate HOB to 30-45 degrees to prevent aspiration .Tylenol PRN for fever #transaminitis, elevated will monitor #hyponatremia of 129 , on IVF NS@125cc/hr #epilepsy, continue current meds. #dysphagia s/p PEG aspiration precautions, HOB elevated >30 #DVT PPX: Lovenox 40mg SQ daily FULL code
[2017-10-27] MEDS: TOPIRAMATE 200 MG TABLET (FP) GT SCH (22:30)
[2017-10-27] MEDS: SODIUM CHLORIDE 1,000 ML IV SCH (22:30)
[2017-10-28] MEDS: AZTREONAM 1 GM in DEXTROSE 5%-WATER - 50 ML IVPB SCH ×3 (02:53→18:04)
[2017-10-28] MEDS: VANCOMYCIN 1 GM PREMIX - 1 GM/200 ML BAG IVPB SCH ×2 (03:45→15:01)
[2017-10-28] MEDS: TOPIRAMATE 100 MG TABLET GT SCH (06:15)
[2017-10-28] MEDS: cloBAZam 10 MG TABLET PO SCH ×2 (06:16→23:26)
[2017-10-28] MEDS: ACETAMINOPHEN 650 MG/20.3 ML ORAL SOLUTION (CUPS) GT PRN (06:32)
[2017-10-28] MEDS: IPRATROPIUM BR 0.02% 0.5 MG/2.5 ML VIAL.NEB. NEB SCH ×4 (07:25→20:08)
[2017-10-28 08:09] LABS: BASO % 0.5 % (0-2.0); EOS % 1.2 % (0-4.5); HEMATOCRIT 35.4 % (35.4-49); HEMOGLOBIN 11.9 GM/dL (11.7-16.9); LYMPH % 32.3 % (8-40); MCH 33.2 pg (25.7-33.7); MCHC 33.8 g/dl (32.0-35.9); MEAN CELL VOLUME 98.4 fl (80-96); PLATELET COUNT 140 K/MM3 (134-434); RBC 3.59 M/mm3 (4.00-5.60); RDW 13.2 % (11.9-15.9)
[2017-10-28 08:34] LABS: CHLORIDE 105 mmol/L (98-107); POTASSIUM 3.8 mmol/L (3.5-5.1); SODIUM 138 mmol/L (136-145)
[2017-10-28 08:44] LABS: ANION GAP 4 (8-16); BLOOD UREA NITROGEN 6 mg/dL (7-18); CALCIUM 7.6 mg/dL (8.5-10.1); CO2 29 mmol/L (21-32); CREATININE 0.2 mg/dL (0.7-1.3); GLUCOSE,RANDOM 97 mg/dL (74-106)
[2017-10-28] MEDS ORDERED: PT OWN MED DRAWER 7, Y5N ONE ×3 (09:39→17:26)
--- NOTE | 2017-10-28 11:12 | PN ---
Progress Note, Physician History of Present Illness: Awake, non-verbal Breathing less labored ; less congested No cough noted Remains febrile BC (-) Legionella ag pending - Current Medication List Current Medications: Active Medications Acetaminophen (Tylenol Oral Solution -) 650 mg GT Q6H PRN PRN Reason: FEVER Last Admin: 10/28/17 06:32 Dose: 650 mg Bisacodyl (Dulcolax Suppository -) 10 mg RC DAILY PRN PRN Reason: CONSTIPATION Carbamazepine (Tegretol Oral Suspension -) 300 mg GT DAILY@1200 [facility] Last Admin: 10/27/17 14:24 Dose: 300 mg Carbamazepine (Tegretol Oral Suspension -) 400 mg GT BID@0800,1830 [facility] Last Admin: 10/27/17 17:43 Dose: 400 mg Clobazam (Onfi -) 5 mg PO AM [facility] Last Admin: 10/28/17 06:16 Dose: 5 mg Clobazam (Onfi -) 10 mg PO HS [facility] Last Admin: 10/27/17 22:30 Dose: 10 mg Diazepam (Diastat Rectal Gel -) 10 mg RC DAILY PRN PRN Reason: SEIZURES Enoxaparin Sodium (Lovenox -) 40 mg SQ DAILY [facility] Last Admin: 10/27/17 10:10 Dose: 40 mg Fluticasone Propionate (Flonase -) 1 spray NS DAILY [facility] Last Admin: 10/27/17 10:09 Dose: 1 spray Sodium Chloride (Normal Saline -) 1,000 mls @ 125 mls/hr IV ASDIR [facility] Last Admin: 10/27/17 22:30 Dose: 125 mls/hr Vancomycin HCl (Vancomycin 1 Gm Premix -) 1 gm in 200 mls @ 133.333 mls/hr IVPB 0300,1500 [facility] PRN Reason: Protocol Last Admin: 10/28/17 03:45 Dose: 133.333 mls/hr Aztreonam 1 gm/ Dextrose 50 mls @ 100 mls/hr IVPB Q8H-IV BRAD PRN Reason: Protocol Last Admin: 10/28/17 02:53 Dose: 100 mls/hr Ipratropium [place] (Atrovent 0.02% Nebulizer -) 1 amp NEB RQID [facility] Last Admin: 10/28/17 07:25 Dose: 1 amp Lorazepam (Ativan -) 1 mg GT DAILY PRN PRN Reason: seizure Non-Formulary Medication (Rufinamide [Banzel]) 1,600 mg GT BID BRAD Topiramate (Topamax -) 300 mg GT AM [facility] Last Admin: 10/28/17 06:15 Dose: 300 mg Topiramate (Topamax -) 400 mg GT HS [facility] Last Admin: 10/27/17 22:30 Dose: 400 mg Zonisamide (Zonisamide) 200 mg GT BID [facility] Last Admin: 10/27/17 22:31 Dose: 200 mg - Objective Vital Signs: Vital Signs Temperature 101.5 F H 10/28/17 06:00 Pulse Rate 113 H 10/28/17 06:00 Respiratory Rate 20 10/28/17 06:00 Blood Pressure 130/81 10/28/17 06:00 O2 Sat by Pulse Oximetry (%) 99 10/27/17 21:00 Constitutional: Yes: No Distress Cardiovascular: Yes: Regular Rate and Rhythm, S1, S2 Respiratory: Yes: Rhonchi Gastrointestinal: Yes: Normal Bowel Sounds, Soft. No: Tenderness Edema: Yes Labs: CBC, BMP 10/28/17 06:30 10/28/17 06:30 INR, PTT INR 1.03 (0.82-1.09) 10/25/17 15:20 Assessment/Plan Continued fever RLL pneumonia Possible sepsis secondary to pneumonia PCN/ Cephalosporin allergies CP/MR Await legionella ag Repeat BC Continue empiric vancomycin/ aztreonam
[2017-10-28] MEDS: carBAMazepine 200 MG/10 ML UNIT-DOSE CUP GT SCH ×3 (12:04→18:05)
[2017-10-28] MEDS: ENOXAPARIN NA (PORCINE) 40 MG/0.4 ML DISP.SYRIN SQ SCH (12:55)
[2017-10-28] MEDS: FLUTICASONE PROP 0.05% 16 GM NASAL SPRAY NS SCH (12:56)
[2017-10-28] MEDS: ZONISAMIDE 100 MG/10 ML ORAL SUSPENSION GT SCH ×2 (12:56→23:26)
[2017-10-28 14:18] LABS: HBSAG SCREEN Negative (Negative); HEP A AB, IGM Negative (Negative); HEP B CORE AB, TOT Negative (Negative)
--- NOTE | 2017-10-28 14:25 | PN ---
Teaching Attending Note Name of Resident: Raciel Woodson ATTENDING PHYSICIAN STATEMENT I saw and evaluated the patient. I reviewed the resident's note and discussed the case with the resident. I agree with the resident's findings and plan as documented. SUBJECTIVE: Patient is awake, non-verbal. He appears comfortable. OBJECTIVE: Vital Signs Period Temp Pulse Resp BP Sys/Grossman Pulse Ox Last 24 Hr 99.6 F-101.8 F 106-126 20-22 123-137/63-81 99 HEART: S1S2, tachycardic LUNGS: Bilateral rhonchi ABDOMEN: Soft, non-distended, normal BS, G-tube in place EXTREMITIES: No edema Laboratory Results - last 24 hr 10/26/17 10/28/17 10/28/17 07:45 02:45 06:30 WBC 6.0 RBC 3.59 L Hgb 11.9 Hct 35.4 MCV 98.4 H MCH 33.2 MCHC 33.8 RDW 13.2 Plt Count 140 MPV 7.0 L Neutrophils % 56.0 Lymphocytes % 32.3 Monocytes % 10.0 Eosinophils % 1.2 D Basophils % 0.5 Sodium Potassium Chloride Carbon Dioxide Anion Gap BUN Creatinine Random Glucose Calcium Vancomycin Pre-Dose 5.147 Hep A IgM Ab Confirm Negative Hepatitis A Ab Total Positive H Hep Bs Antigen Negative Hep Bs Antibody Non reactive Hep B Core Total Ab Negative 10/28/17 06:30 WBC RBC Hgb Hct MCV MCH MCHC RDW Plt Count MPV Neutrophils % Lymphocytes % Monocytes % Eosinophils % Basophils % Sodium 138 Potassium 3.8 Chloride 105 Carbon Dioxide 29 Anion Gap 4 L BUN 6 L Creatinine 0.2 L Random Glucose 97 Calcium 7.6 L Vancomycin Pre-Dose Hep A IgM Ab Confirm Hepatitis A Ab Total Hep Bs Antigen Hep Bs Antibody Hep B Core Total Ab Current Medications Generic Name Dose Route Start Last Admin Trade Name Freq PRN Reason Stop Dose Admin Acetaminophen 650 mg 10/25/17 21:23 10/28/17 06:32 Tylenol Oral Solution - GT 650 mg Q6H PRN Administration FEVER Bisacodyl 10 mg 10/25/17 21:18 Dulcolax Suppository - RC DAILY PRN CONSTIPATION Carbamazepine 300 mg 10/26/17 12:00 10/28/17 12:05 Tegretol Oral Suspension - GT 300 mg DAILY@1200 BRAD Administration Carbamazepine 400 mg 10/26/17 08:00 10/28/17 12:04 Tegretol Oral Suspension - GT 400 mg BID@0800,1830 BRAD Administration Clobazam 5 mg 10/26/17 07:00 10/28/17 06:16 Onfi - PO 5 mg AM BRAD Administration Clobazam 10 mg 10/25/17 22:00 10/27/17 22:30 Onfi - PO 10 mg HS BRAD Administration Diazepam 10 mg 10/25/17 21:30 Diastat Rectal Gel - RC DAILY PRN SEIZURES Enoxaparin Sodium 40 mg 10/26/17 10:00 10/28/17 12:55 Lovenox - SQ 40 mg DAILY BRAD Administration Fluticasone Propionate 1 spray 10/26/17 10:00 10/28/17 12:56 Flonase - NS 1 spray DAILY BRAD Administration Sodium Chloride 1,000 mls @ 125 mls/hr 10/25/17 21:30 10/27/17 22:30 Normal Saline - IV 125 mls/hr ASDIR BRAD Administration Vancomycin HCl 1 gm in 200 mls @ 133.333 mls/hr 10/26/17 14:30 10/28/17 03:45 Vancomycin 1 Gm Premix - IVPB 133.333 mls/hr 0300,1500 BRAD Administration Protocol Aztreonam 1 gm/ Dextrose 50 mls @ 100 mls/hr 10/26/17 18:00 10/28/17 12:03 IVPB 100 mls/hr Q8H-IV BRAD Administration Protocol Ipratropium [place] 1 amp 10/27/17 12:00 10/28/17 11:35 Atrovent 0.02% Nebulizer - NEB 1 amp RQID BRAD Administration Lorazepam 1 mg 10/25/17 21:18 Ativan - GT DAILY PRN seizure Non-Formulary Medication 1,600 mg 10/25/17 22:00 Rufinamide [Banzel] GT BID BRAD Topiramate 300 mg 10/26/17 07:00 10/28/17 06:15 Topamax - GT 300 mg AM BRAD Administration Topiramate 400 mg 10/25/17 22:00 10/27/17 22:30 Topamax - GT 400 mg HS BRAD Administration Zonisamide 200 mg 10/26/17 15:17 10/28/17 12:56 Zonisamide GT 200 mg BID BRAD Administration ASSESSMENT AND PLAN: This is a 27 year old man with a history of cerebral palsy, epilepsy, scoliosis , functional quadriplegia, intellectual disability, dysphagia who was sent from [facility] for persistent fever. 1. Sepsis secondary to pneumonia, probable aspiration - Had temp 101.5 this morning, afebrile since - Blood cultures negative - Continue Azactam, Vancomycin, Atrovent nebs 2. Hyponatremia - Resolved 3. Epilepsy - Continue Tegretol, Topamax, Zonegran, Banzel, Onfi 4. Cerebral palsy 5. Functional quadriplegia 6. Intellectual disability 7. Dysphagia - Continue Jevity via G-tube
--- NOTE | 2017-10-28 18:05 | PN ---
Physical Exam: SUBJECTIVE: Patient seen and examined at bedside. Fever of 101.5 this morning. Stable. Pt is nonverbal. OBJECTIVE: Vital Signs Period Temp Pulse Resp BP Sys/Grossman Pulse Ox Last 24 Hr 99.2 F-101.8 F 106-126 20-22 123-137/63-81 99 Pt nonverbal. GENERAL: in no apparent distress. HEAD: Normal with no signs of trauma. EYES: sclera anicteric, conjunctiva clear. No ptosis. ENT: oropharynx clear without exudates, dry mucous membranes. NECK: Trachea midline, full range of motion, supple. LUNGS: no wheezes, diffuse crackles, no accessory muscle use. HEART: Regular rate and rhythm, S1, S2 without murmur, rub or gallop. ABDOMEN: Soft, nondistended, normoactive bowel sounds, no guarding, no rebound, no hepatosplenomegaly, no masses. EXTREMITIES: contracted NEUROLOGICAL: unable to assess. PSYCH: nonverbal SKIN: Warm, dry, normal turgor, no rashes or lesions noted Laboratory Results - last 24 hr 10/26/17 10/28/17 10/28/17 07:45 02:45 06:30 WBC 6.0 RBC 3.59 L Hgb 11.9 Hct 35.4 MCV 98.4 H MCH 33.2 MCHC 33.8 RDW 13.2 Plt Count 140 MPV 7.0 L Neutrophils % 56.0 Lymphocytes % 32.3 Monocytes % 10.0 Eosinophils % 1.2 D Basophils % 0.5 Sodium Potassium Chloride Carbon Dioxide Anion Gap BUN Creatinine Random Glucose Calcium Vancomycin Pre-Dose 5.147 Hep A IgM Ab Confirm Negative Hepatitis A Ab Total Positive H Hep Bs Antigen Negative Hep Bs Antibody Non reactive Hep B Core Total Ab Negative 10/28/17 06:30 WBC RBC Hgb Hct MCV MCH MCHC RDW Plt Count MPV Neutrophils % Lymphocytes % Monocytes % Eosinophils % Basophils % Sodium 138 Potassium 3.8 Chloride 105 Carbon Dioxide 29 Anion Gap 4 L BUN 6 L Creatinine 0.2 L Random Glucose 97 Calcium 7.6 L Vancomycin Pre-Dose Hep A IgM Ab Confirm Hepatitis A Ab Total Hep Bs Antigen Hep Bs Antibody Hep B Core Total Ab Active Medications Generic Name Dose Route Start Last Admin Trade Name Freq PRN Reason Stop Dose Admin Acetaminophen 650 mg 10/25/17 21:23 10/28/17 06:32 Tylenol Oral Solution - GT 650 mg Q6H PRN Administration FEVER Bisacodyl 10 mg 10/25/17 21:18 Dulcolax Suppository - RC DAILY PRN CONSTIPATION Carbamazepine 300 mg 10/26/17 12:00 10/28/17 12:05 Tegretol Oral Suspension - GT 300 mg DAILY@1200 BRAD Administration Carbamazepine 400 mg 10/26/17 08:00 10/28/17 12:04 Tegretol Oral Suspension - GT 400 mg BID@0800,1830 BRAD Administration Clobazam 5 mg 10/26/17 07:00 10/28/17 06:16 Onfi - PO 5 mg AM BRAD Administration Clobazam 10 mg 10/25/17 22:00 10/27/17 22:30 Onfi - PO 10 mg HS BRAD Administration Diazepam 10 mg 10/25/17 21:30 Diastat Rectal Gel - RC DAILY PRN SEIZURES Enoxaparin Sodium 40 mg 10/26/17 10:00 10/28/17 12:55 Lovenox - SQ 40 mg DAILY BRAD Administration Fluticasone Propionate 1 spray 10/26/17 10:00 10/28/17 12:56 Flonase - NS 1 spray DAILY BRAD Administration Guaifenesin 600 mg 10/28/17 22:00 Mucinex - PO BID BRAD Sodium Chloride 1,000 mls @ 125 mls/hr 10/25/17 21:30 10/27/17 22:30 Normal Saline - IV 125 mls/hr ASDIR BRAD Administration Vancomycin HCl 1 gm in 200 mls @ 133.333 mls/hr 10/26/17 14:30 10/28/17 15:01 Vancomycin 1 Gm Premix - IVPB 133.333 mls/hr 0300,1500 BRAD Administration Protocol Aztreonam 1 gm/ Dextrose 50 mls @ 100 mls/hr 10/26/17 18:00 10/28/17 12:03 IVPB 100 mls/hr Q8H-IV BRAD Administration Protocol Ipratropium [place] 1 amp 10/27/17 12:00 10/28/17 15:09 Atrovent 0.02% Nebulizer - NEB 1 amp RQID BRAD Administration Lorazepam 1 mg 10/25/17 21:18 Ativan - GT DAILY PRN seizure Non-Formulary Medication 1,600 mg 10/25/17 22:00 Rufinamide [Banzel] GT BID BRAD Saliva Substitute 1 applic 10/28/17 14:45 Mouthkote Solution - MM DAILY BRAD Topiramate 300 mg 10/26/17 07:00 10/28/17 06:15 Topamax - GT 300 mg AM BRAD Administration Topiramate 400 mg 10/25/17 22:00 10/27/17 22:30 Topamax - GT 400 mg HS BRAD Administration Zonisamide 200 mg 10/26/17 15:17 10/28/17 12:56 Zonisamide GT 200 mg BID BRAD Administration ASSESSMENT/PLAN: Pt is a 27 y/o M with PMH cerebral palsy, epilepsy, functional quadriplegia, intellectual disability, and dysphagia s/p GT who was brought to ED from [place] because of fever despite Levaquin for 3 d (from 10/23). Pt had recent admission here (09/30/2017) for aspiration PNA given 10d of levaquin. Pt had fever and tachy in ED. Was given vanc, aztreonam. #Sepsis / suspected aspiration PNA -still spiking fevers with tachycardia -no leukocytosis this visit -CXR x2 neg for PNA -Vanc, Aztreonam #Transaminitis -U/S negative for acute pathology -monitor #Epilepsy -Topamax -Diazepam PRN -Ativan PRN #Dysphagia -S/p PEG placement -elevate head of bed #DVT ppx -lovenox #FEN -NS at 125 -lytes wnl -PEG Raciel Woodson MD PGY-1 IM Visit type - Emergency Visit Emergency Visit: No - New Patient This patient is new to me today: Yes Date on this admission: 10/29/17 - Critical Care Critical Care patient: No
[2017-10-28] MEDS: LYTES/YERBA SANTA 240 ML BOTTLE MM SCH (18:06)
[2017-10-28] MEDS ORDERED: guaiFENesin 600 MG TABLET.ER (FP) PO SCH (22:00)
[2017-10-28] MEDS: SODIUM CHLORIDE 1,000 ML IV SCH (23:26)
[2017-10-28] MEDS: guaiFENesin 200 MG/10 ML 10 ML UNIT-DOSE CUPS PO SCH (23:37)
[2017-10-29] MEDS: TOPIRAMATE 200 MG TABLET (FP) GT SCH ×2 (00:54→22:37)
[2017-10-29] MEDS: AZTREONAM 1 GM in DEXTROSE 5%-WATER - 50 ML IVPB SCH ×3 (01:46→17:28)
[2017-10-29] MEDS: VANCOMYCIN 1 GM PREMIX - 1 GM/200 ML BAG IVPB SCH ×2 (02:26→15:09)
[2017-10-29] MEDS: guaiFENesin 200 MG/10 ML 10 ML UNIT-DOSE CUPS PO SCH ×3 (06:21→17:27)
[2017-10-29] MEDS: TOPIRAMATE 100 MG TABLET GT SCH (06:21)
[2017-10-29] MEDS: cloBAZam 10 MG TABLET PO SCH ×2 (06:21→22:36)
[2017-10-29 08:01] LABS: BASO % 0.6 % (0-2.0); EOS % 1.7 % (0-4.5); HEMATOCRIT 34.2 % (35.4-49); HEMOGLOBIN 11.6 GM/dL (11.7-16.9); LYMPH % 22.3 % (8-40); MCH 33.4 pg (25.7-33.7); MEAN CELL VOLUME 98.3 fl (80-96); MEAN PLT VOLUME 6.9 fl (7.5-11.1); MONO % 8.5 % (3.8-10.2); NEUT % 66.9 % (42.8-82.8); PLATELET COUNT 159 K/MM3 (134-434); RBC 3.48 M/mm3 (4.00-5.60); RDW 13.1 % (11.9-15.9); WHITE BLOOD COUNT 8.1 K/mm3 (4.0-10.0)
[2017-10-29] MEDS: SODIUM CHLORIDE 1,000 ML IV SCH (08:28)
[2017-10-29 08:30] LABS: CHLORIDE 106 mmol/L (98-107); POTASSIUM 3.7 mmol/L (3.5-5.1); SODIUM 139 mmol/L (136-145)
[2017-10-29] MEDS: IPRATROPIUM BR 0.02% 0.5 MG/2.5 ML VIAL.NEB. NEB SCH ×4 (08:50→20:30)
[2017-10-29 08:53] LABS: ALBUMIN 2.9 g/dl (3.4-5.0); ALK PHOS 117 U/L (45-117); ANION GAP 5 (8-16); BILIRUBIN,TOTAL 0.4 mg/dL (0.2-1.0); BLOOD UREA NITROGEN 5 mg/dL (7-18); CALCIUM 7.7 mg/dL (8.5-10.1); CO2 28 mmol/L (21-32); CREATININE < 0.2 mg/dL (0.7-1.3); GLUCOSE,RANDOM 104 mg/dL (74-106); SGOT/AST 18 U/L (15-37); SGPT/ALT 46 U/L (12-78); TOT PROT 6.3 g/dl (6.4-8.2)
[2017-10-29] MEDS ORDERED: PT OWN MED DRAWER 7, Y5N ONE ×7 (08:53→22:28)
[2017-10-29] MEDS: carBAMazepine 200 MG/10 ML UNIT-DOSE CUP GT SCH ×3 (08:57→18:21)
[2017-10-29] MEDS: ZONISAMIDE 100 MG/10 ML ORAL SUSPENSION GT SCH ×2 (10:15→22:37)
[2017-10-29] MEDS: LYTES/YERBA SANTA 240 ML BOTTLE MM SCH (10:16)
[2017-10-29] MEDS: ENOXAPARIN NA (PORCINE) 40 MG/0.4 ML DISP.SYRIN SQ SCH (10:20)
[2017-10-29] MEDS ORDERED: SODIUM CHLORIDE 1,000 ML IV SCH ×2 (11:15)
[2017-10-29] MEDS: FLUTICASONE PROP 0.05% 16 GM NASAL SPRAY NS SCH (11:30)
--- NOTE | 2017-10-29 14:17 | PN ---
Teaching Attending Note Name of Resident: Raciel Woodson ATTENDING PHYSICIAN STATEMENT I saw and evaluated the patient. I reviewed the resident's note and discussed the case with the resident. I agree with the resident's findings and plan as documented with exceptions below. SUBJECTIVE: Patient seen and examined. non verbal coughing, unable to assess for ROS. OBJECTIVE: Vital Signs Period Temp Pulse Resp BP Sys/Grossman Pulse Ox Last 24 Hr 98.5 F-99.6 F 94-117 20-25 114-135/74-82 96-100 Intake & Output 10/26/17 10/27/17 10/28/17 10/29/17 23:59 23:59 23:59 23:59 Intake Total 0 3725 4330 1994 Output Total 2 Balance 0 3723 4330 1994 Weight 150 lb 126 lb 127 lb 12.8 oz 124 lb 3.2 oz General: mild tachypneic in bed, non verbal Chest: limited exam, poor effort, coarse rales bilaterally Abdomen:soft, NT Extremities: no edema Home Medication List Medication Instructions Recorded Confirmed Type Carbamazepine 300 mg GT 1200 09/27/17 10/25/17 History Carbamazepine 400 mg GT BID 09/27/17 10/25/17 History Clobazam [Onfi] 5 mg GT AM 09/27/17 10/25/17 History Clobazam [Onfi] 10 mg GT HS 09/27/17 10/25/17 History Diazepam Rectal Gel [Diastat 10 mg RC PRN 09/27/17 10/25/17 History Rectal Gel -] LORazepam [Ativan] 1 mg GT DAILY PRN 09/27/17 10/25/17 History Rufinamide [Banzel] 1,600 mg GT BID 09/27/17 10/25/17 History Topiramate [Topamax -] 400 mg GT HS 09/27/17 10/25/17 History Topiramate [Topamax] 300 mg GT AM 09/27/17 10/25/17 History Zonisamide [Zonegran] 200 mg GT BID 09/27/17 10/25/17 History Zonisamide [Zonegran] 250 mg GT HS 09/27/17 10/25/17 History Bisacodyl [Dulcolax] 10 mg RC DAILY PRN 10/25/17 10/25/17 History Fluticasone Prop 0.05% Nasal 1 - 2 spray NS DAILY 10/25/17 10/25/17 History [Flonase -] Nutritional Supplement [Replete] 250 ml GT ASDIR 10/25/17 10/25/17 History Topiramate [Qudexy Xr] 200 mg GT AM 10/25/17 10/25/17 History Topiramate [Qudexy Xr] 400 mg GT HS 10/25/17 10/25/17 History Active Medications Generic Name Dose Route Start Last Admin Trade Name Freq PRN Reason Stop Dose Admin Acetaminophen 650 mg 10/25/17 21:23 10/28/17 06:32 Tylenol Oral Solution - GT 650 mg Q6H PRN Administration FEVER Bisacodyl 10 mg 10/25/17 21:18 Dulcolax Suppository - RC DAILY PRN CONSTIPATION Carbamazepine 300 mg 10/26/17 12:00 10/29/17 11:36 Tegretol Oral Suspension - GT 300 mg DAILY@1200 BRAD Administration Carbamazepine 400 mg 10/26/17 08:00 10/29/17 08:57 Tegretol Oral Suspension - GT 400 mg BID@0800,1830 BRAD Administration Clobazam 5 mg 10/26/17 07:00 10/29/17 06:21 Onfi - PO 5 mg AM BRAD Administration Clobazam 10 mg 10/25/17 22:00 10/28/17 23:26 Onfi - PO 10 mg HS BRAD Administration Diazepam 10 mg 10/25/17 21:30 Diastat Rectal Gel - RC DAILY PRN SEIZURES Enoxaparin Sodium 40 mg 10/26/17 10:00 10/29/17 10:20 Lovenox - SQ 40 mg DAILY BRAD Administration Fluticasone Propionate 1 spray 10/26/17 10:00 10/29/17 11:30 Flonase - NS 1 spray DAILY BRAD Administration Guaifenesin 10 ml 10/29/17 00:00 10/29/17 11:33 Robitussin - PO 10 ml Q6HPO BRAD Administration Vancomycin HCl 1 gm in 200 mls @ 133.333 mls/hr 10/26/17 14:30 10/29/17 02:26 Vancomycin 1 Gm Premix - IVPB 133.333 mls/hr 0300,1500 BRAD Administration Protocol Aztreonam 1 gm/ Dextrose 50 mls @ 100 mls/hr 10/26/17 18:00 10/29/17 10:14 IVPB 100 mls/hr Q8H-IV BRAD Administration Protocol Sodium Chloride 1,000 mls @ 42 mls/hr 10/29/17 11:15 10/29/17 11:15 Normal Saline - IV 42 mls/hr ASDIR BRAD Administration Ipratropium [place] 1 amp 10/27/17 12:00 10/29/17 12:00 Atrovent 0.02% Nebulizer - NEB 1 amp RQID BRAD Administration Lorazepam 1 mg 10/25/17 21:18 Ativan - GT DAILY PRN seizure Non-Formulary Medication 1,600 mg 10/25/17 22:00 Rufinamide [Banzel] GT BID BRAD Saliva Substitute 1 applic 10/28/17 14:45 10/29/17 10:16 Mouthkote Solution - MM 1 applic DAILY BRAD Administration Topiramate 300 mg 10/26/17 07:00 10/29/17 06:21 Topamax - GT 300 mg AM BRAD Administration Topiramate 400 mg 10/25/17 22:00 10/29/17 00:54 Topamax - GT 400 mg HS BRAD Administration Zonisamide 200 mg 10/26/17 15:17 10/29/17 10:15 Zonisamide GT 200 mg BID BRAD Administration Laboratory Results - last 24 hr 10/26/17 10/29/17 10/29/17 07:45 06:30 07:00 WBC 8.1 D RBC 3.48 L Hgb 11.6 L Hct 34.2 L MCV 98.3 H MCH 33.4 MCHC 34.0 RDW 13.1 Plt Count 159 MPV 6.9 L Neutrophils % 66.9 Lymphocytes % 22.3 D Monocytes % 8.5 Eosinophils % 1.7 Basophils % 0.6 Sodium 139 Potassium 3.7 Chloride 106 Carbon Dioxide 28 Anion Gap 5 L BUN 5 L Creatinine < 0.2 L Creat Clearance w eGFR > 60 Random Glucose 104 Calcium 7.7 L Total Bilirubin 0.4 D AST 18 D ALT 46 D Alkaline Phosphatase 117 Total Protein 6.3 L Albumin 2.9 L Hep A IgM Ab Confirm Negative Hepatitis A Ab Total Positive H Hep Bs Antigen Negative Hep Bs Antibody Non reactive Hep B Core Total Ab Negative Microbiology 10/28/17 11:55 Blood - Peripheral Venous Blood Culture - Preliminary NO GROWTH OBTAINED AFTER 24 HOURS, INCUBATION TO CONTINUE FOR 4 DAYS. 10/28/17 11:40 Blood - Peripheral Venous Blood Culture - Preliminary NO GROWTH OBTAINED AFTER 24 HOURS, INCUBATION TO CONTINUE FOR 4 DAYS. 10/25/17 15:28 Blood - Peripheral Venous Blood Culture - Preliminary NO GROWTH OBTAINED AFTER 72 HOURS, INCUBATION TO CONTINUE FOR 2 DAYS. 10/25/17 15:28 Blood - Peripheral Venous Blood Culture - Preliminary NO GROWTH OBTAINED AFTER 72 HOURS, INCUBATION TO CONTINUE FOR 2 DAYS. 10/26/17 09:19 Sputum - Expectorated Gram Stain - Final 10/26/17 09:19 Sputum - Expectorated Sputum Culture - Final NORMAL RESPIRATORY BENSON 10/26/17 15:15 Urine For Antigen Detection Legionella Antigen - Final 10/26/17 15:15 Urine For Antigen Detection Streptococcus pneumoniae Antigen (M - Final 10/25/17 15:20 Urine - Urine Clean Catch Urine Culture - Final Enterococcus Faecalis 10/26/17 15:15 Nasopharyngeal Swab Influenza Types A,B Antigen (RADHA) - Final 10/26/17 15:15 Nasopharyngeal Swab - Final CXr marked scoliosis, limited view ASSESSMENT AND PLAN: 27 yom with PMHx of cerebral palsy, epilepsy, scoliosis, functional quadriplegia , intellectual disability, dysphagia s/p PEG, recently treated for PNA with 10 days of levaquin in 09/2017, admitted with persistent fevers s/p 3 days of outpatient levaquin. -Sepsis likely secondary to aspiration PNA -Transaminitis -Cerebral palsy -SColiosis -Functional quadriplegia -Dysphagia s/p PEG Plan: Aztreonam/vancomycin day 6, follow up with ID, Cultures neg so far. Aggressive chest PT and frequent suctioning. Aspiration precautions. IVF to KVO. LFts normalized. RUQ US and hep panel noted. Continue tube feeds, home meds. DVTPPx dispo pending clinical improvement.
--- NOTE | 2017-10-29 14:51 | PN ---
Progress Note, Physician History of Present Illness: More comfortable appearing. Breathing non- labored ; still congested No cough noted BC (-) Legionella ag (-) - Current Medication List Current Medications: Active Medications Acetaminophen (Tylenol Oral Solution -) 650 mg GT Q6H PRN PRN Reason: FEVER Last Admin: 10/28/17 06:32 Dose: 650 mg Bisacodyl (Dulcolax Suppository -) 10 mg RC DAILY PRN PRN Reason: CONSTIPATION Carbamazepine (Tegretol Oral Suspension -) 300 mg GT DAILY@1200 [facility] Last Admin: 10/29/17 11:36 Dose: 300 mg Carbamazepine (Tegretol Oral Suspension -) 400 mg GT BID@0800,1830 [facility] Last Admin: 10/29/17 08:57 Dose: 400 mg Clobazam (Onfi -) 5 mg PO AM [facility] Last Admin: 10/29/17 06:21 Dose: 5 mg Clobazam (Onfi -) 10 mg PO HS [facility] Last Admin: 10/28/17 23:26 Dose: 10 mg Diazepam (Diastat Rectal Gel -) 10 mg RC DAILY PRN PRN Reason: SEIZURES Enoxaparin Sodium (Lovenox -) 40 mg SQ DAILY [facility] Last Admin: 10/29/17 10:20 Dose: 40 mg Fluticasone Propionate (Flonase -) 1 spray NS DAILY [facility] Last Admin: 10/29/17 11:30 Dose: 1 spray Guaifenesin (Robitussin -) 10 ml PO Q6HPO [facility] Last Admin: 10/29/17 11:33 Dose: 10 ml Vancomycin HCl (Vancomycin 1 Gm Premix -) 1 gm in 200 mls @ 133.333 mls/hr IVPB 0300,1500 [facility] PRN Reason: Protocol Last Admin: 10/29/17 02:26 Dose: 133.333 mls/hr Aztreonam 1 gm/ Dextrose 50 mls @ 100 mls/hr IVPB Q8H-IV [facility] PRN Reason: Protocol Last Admin: 10/29/17 10:14 Dose: 100 mls/hr Ipratropium [place] (Atrovent 0.02% Nebulizer -) 1 amp NEB RQID [facility] Last Admin: 10/29/17 12:00 Dose: 1 amp Lorazepam (Ativan -) 1 mg GT DAILY PRN PRN Reason: seizure Non-Formulary Medication (Rufinamide [Banzel]) 1,600 mg GT BID [facility] Saliva Substitute (Mouthkote Solution -) 1 applic MM DAILY [facility] Last Admin: 10/29/17 10:16 Dose: 1 applic Topiramate (Topamax -) 300 mg GT AM [facility] Last Admin: 10/29/17 06:21 Dose: 300 mg Topiramate (Topamax -) 400 mg GT HS [facility] Last Admin: 10/29/17 00:54 Dose: 400 mg Zonisamide (Zonisamide) 200 mg GT BID [facility] Last Admin: 10/29/17 10:15 Dose: 200 mg - Objective Vital Signs: Vital Signs Temperature 98.5 F 10/29/17 08:30 Pulse Rate 94 H 10/29/17 08:30 Respiratory Rate 25 H 10/29/17 08:30 Blood Pressure 126/82 10/29/17 08:30 O2 Sat by Pulse Oximetry (%) 100 10/29/17 09:00 Constitutional: Yes: No Distress Cardiovascular: Yes: Regular Rate and Rhythm, S1, S2 Respiratory: Yes: Rhonchi Gastrointestinal: Yes: Normal Bowel Sounds, Soft. No: Tenderness Labs: CBC, BMP 10/29/17 07:00 10/29/17 06:30 INR, PTT INR 1.03 (0.82-1.09) 10/25/17 15:20 Assessment/Plan RLL pneumonia Possible sepsis secondary to pneumonia PCN/ Cephalosporin allergies CP/MR Repeat BC no growth Continue empiric vancomycin/ aztreonam
--- NOTE | 2017-10-29 20:09 | PN ---
Physical Exam: SUBJECTIVE: Patient seen and examined at bedside. afebrile. Stable. Pt is nonverbal. OBJECTIVE: Vital Signs Period Temp Pulse Resp BP Sys/Grossman Pulse Ox Last 24 Hr 98.5 F-99.6 F 94-111 18-25 114-133/71-82 96-100 Pt nonverbal. GENERAL: in no apparent distress. HEAD: Normal with no signs of trauma. EYES: sclera anicteric, conjunctiva clear. No ptosis. ENT: oropharynx clear without exudates, dry mucous membranes. NECK: Trachea midline, full range of motion, supple. LUNGS: no wheezes, diffuse crackles, no accessory muscle use. HEART: Regular rate and rhythm, S1, S2 without murmur, rub or gallop. ABDOMEN: Soft, nondistended, normoactive bowel sounds, no guarding, no rebound, no hepatosplenomegaly, no masses. EXTREMITIES: contracted NEUROLOGICAL: unable to assess. PSYCH: nonverbal SKIN: Warm, dry, normal turgor, no rashes or lesions noted Laboratory Results - last 24 hr 10/29/17 10/29/17 06:30 07:00 WBC 8.1 D RBC 3.48 L Hgb 11.6 L Hct 34.2 L MCV 98.3 H MCH 33.4 MCHC 34.0 RDW 13.1 Plt Count 159 MPV 6.9 L Neutrophils % 66.9 Lymphocytes % 22.3 D Monocytes % 8.5 Eosinophils % 1.7 Basophils % 0.6 Sodium 139 Potassium 3.7 Chloride 106 Carbon Dioxide 28 Anion Gap 5 L BUN 5 L Creatinine < 0.2 L Creat Clearance w eGFR > 60 Random Glucose 104 Calcium 7.7 L Total Bilirubin 0.4 D AST 18 D ALT 46 D Alkaline Phosphatase 117 Total Protein 6.3 L Albumin 2.9 L Active Medications Generic Name Dose Route Start Last Admin Trade Name Freq PRN Reason Stop Dose Admin Acetaminophen 650 mg 10/25/17 21:23 10/28/17 06:32 Tylenol Oral Solution - GT 650 mg Q6H PRN Administration FEVER Bisacodyl 10 mg 10/25/17 21:18 Dulcolax Suppository - RC DAILY PRN CONSTIPATION Carbamazepine 300 mg 10/26/17 12:00 10/29/17 11:36 Tegretol Oral Suspension - GT 300 mg DAILY@1200 BRAD Administration Carbamazepine 400 mg 10/26/17 08:00 10/29/17 18:21 Tegretol Oral Suspension - GT 400 mg BID@0800,1830 BRAD Administration Clobazam 5 mg 10/26/17 07:00 10/29/17 06:21 Onfi - PO 5 mg AM BRAD Administration Clobazam 10 mg 10/25/17 22:00 10/28/17 23:26 Onfi - PO 10 mg HS BRAD Administration Diazepam 10 mg 10/25/17 21:30 Diastat Rectal Gel - RC DAILY PRN SEIZURES Enoxaparin Sodium 40 mg 10/26/17 10:00 10/29/17 10:20 Lovenox - SQ 40 mg DAILY BRAD Administration Fluticasone Propionate 1 spray 10/26/17 10:00 10/29/17 11:30 Flonase - NS 1 spray DAILY BRAD Administration Guaifenesin 10 ml 10/29/17 00:00 10/29/17 17:27 Robitussin - PO 10 ml Q6HPO BRAD Administration Vancomycin HCl 1 gm in 200 mls @ 133.333 mls/hr 10/26/17 14:30 10/29/17 15:09 Vancomycin 1 Gm Premix - IVPB 133.333 mls/hr 0300,1500 BRAD Administration Protocol Aztreonam 1 gm/ Dextrose 50 mls @ 100 mls/hr 10/26/17 18:00 10/29/17 17:28 IVPB 100 mls/hr Q8H-IV BRAD Administration Protocol Ipratropium [place] 1 amp 10/27/17 12:00 10/29/17 16:18 Atrovent 0.02% Nebulizer - NEB 1 amp RQID BRAD Administration Lorazepam 1 mg 10/25/17 21:18 Ativan - GT DAILY PRN seizure Non-Formulary Medication 1,600 mg 10/25/17 22:00 Rufinamide [Banzel] GT BID BRAD Saliva Substitute 1 applic 10/28/17 14:45 10/29/17 10:16 Mouthkote Solution - MM 1 applic DAILY BRAD Administration Topiramate 300 mg 10/26/17 07:00 10/29/17 06:21 Topamax - GT 300 mg AM BRAD Administration Topiramate 400 mg 10/25/17 22:00 10/29/17 00:54 Topamax - GT 400 mg HS BRAD Administration Zonisamide 200 mg 10/26/17 15:17 10/29/17 10:15 Zonisamide GT 200 mg BID BRAD Administration ASSESSMENT/PLAN: Pt is a 27 y/o M with PMH cerebral palsy, epilepsy, functional quadriplegia, intellectual disability, and dysphagia s/p GT who was brought to ED from [place] because of fever despite Levaquin for 3 d (from 10/23). Pt had recent admission here (09/30/2017) for aspiration PNA given 10d of levaquin. Pt had fever and tachy in ED. Was given vanc, aztreonam. #Sepsis 07/26 suspected aspiration PNA -still spiking fevers with tachycardia -no leukocytosis this visit -CXR x2 neg for PNA -Vanc, Aztreonam #Transaminitis -U/S negative for acute pathology -monitor #Epilepsy -Topamax -Diazepam PRN -Ativan PRN #Dysphagia -S/p PEG placement -elevate head of bed #DVT ppx -lovenox #FEN -NS at 125 -lytes wnl -PEG Raciel Woodson MD PGY-1 IM Visit type - Emergency Visit Emergency Visit: No - New Patient This patient is new to me today: No - Critical Care Critical Care patient: No
[2017-10-30] MEDS ORDERED: PT OWN MED DRAWER 7, Y5N ONE ×7 (01:35→21:22)
[2017-10-30] MEDS: guaiFENesin 200 MG/10 ML 10 ML UNIT-DOSE CUPS PO SCH ×5 (01:49→23:36)
[2017-10-30] MEDS: AZTREONAM 1 GM in DEXTROSE 5%-WATER - 50 ML IVPB SCH ×3 (01:49→17:45)
[2017-10-30] MEDS: VANCOMYCIN 1 GM PREMIX - 1 GM/200 ML BAG IVPB SCH ×2 (03:45→15:02)
[2017-10-30] MEDS: cloBAZam 10 MG TABLET PO SCH ×2 (06:00→21:45)
[2017-10-30] MEDS: TOPIRAMATE 100 MG TABLET GT SCH (06:03)
[2017-10-30] MEDS: IPRATROPIUM BR 0.02% 0.5 MG/2.5 ML VIAL.NEB. NEB SCH ×4 (07:24→20:22)
[2017-10-30] MEDS: carBAMazepine 200 MG/10 ML UNIT-DOSE CUP GT SCH ×3 (08:23→18:19)
[2017-10-30 09:18] LABS: BASO % 0.4 % (0-2.0); EOS % 2.8 % (0-4.5); HEMATOCRIT 37.2 % (35.4-49); HEMOGLOBIN 12.5 GM/dL (11.7-16.9); LYMPH % 21.8 % (8-40); MCH 33.4 pg (25.7-33.7); MCHC 33.7 g/dl (32.0-35.9); MEAN CELL VOLUME 99.1 fl (80-96); MEAN PLT VOLUME 7.4 fl (7.5-11.1); MONO % 7.3 % (3.8-10.2); NEUT % 67.7 % (42.8-82.8); PLATELET COUNT 220 K/MM3 (134-434); RBC 3.75 M/mm3 (4.00-5.60); RDW 13.1 % (11.9-15.9); WHITE BLOOD COUNT 8.6 K/mm3 (4.0-10.0)
[2017-10-30 10:00] LABS: CHLORIDE 103 mmol/L (98-107); POTASSIUM 4.1 mmol/L (3.5-5.1); SODIUM 138 mmol/L (136-145)
[2017-10-30 10:15] LABS: ALBUMIN 3.1 g/dl (3.4-5.0); ALK PHOS 133 U/L (45-117); ANION GAP 7 (8-16); BILIRUBIN,TOTAL 0.3 mg/dL (0.2-1.0); BLOOD UREA NITROGEN 5 mg/dL (7-18); CALCIUM 8.1 mg/dL (8.5-10.1); CO2 28 mmol/L (21-32); CREATININE < 0.2 mg/dL (0.7-1.3); GLUCOSE,RANDOM 89 mg/dL (74-106); SGOT/AST 21 U/L (15-37); SGPT/ALT 49 U/L (12-78); TOT PROT 6.7 g/dl (6.4-8.2)
[2017-10-30] MEDS: LYTES/YERBA SANTA 240 ML BOTTLE MM SCH (10:25)
[2017-10-30] MEDS: ENOXAPARIN NA (PORCINE) 40 MG/0.4 ML DISP.SYRIN SQ SCH (10:26)
[2017-10-30] MEDS: FLUTICASONE PROP 0.05% 16 GM NASAL SPRAY NS SCH (10:26)
[2017-10-30] MEDS: ZONISAMIDE 100 MG/10 ML ORAL SUSPENSION GT SCH ×2 (11:08→21:46)
--- NOTE | 2017-10-30 11:16 | PN ---
Progress Note, Physician History of Present Illness: Non- verbal Breathing non- labored ; less congested No cough noted BC (-) Legionella ag (-) Afebrile WBC WNL - Current Medication List Current Medications: Active Medications Acetaminophen (Tylenol Oral Solution -) 650 mg GT Q6H PRN PRN Reason: FEVER Last Admin: 10/28/17 06:32 Dose: 650 mg Bisacodyl (Dulcolax Suppository -) 10 mg RC DAILY PRN PRN Reason: CONSTIPATION Carbamazepine (Tegretol Oral Suspension -) 300 mg GT DAILY@1200 [facility] Last Admin: 10/29/17 11:36 Dose: 300 mg Carbamazepine (Tegretol Oral Suspension -) 400 mg GT BID@0800,1830 [facility] Last Admin: 10/30/17 08:23 Dose: 400 mg Clobazam (Onfi -) 5 mg PO AM [facility] Last Admin: 10/30/17 06:00 Dose: 5 mg Clobazam (Onfi -) 10 mg PO HS [facility] Last Admin: 10/29/17 22:36 Dose: 10 mg Diazepam (Diastat Rectal Gel -) 10 mg RC DAILY PRN PRN Reason: SEIZURES Enoxaparin Sodium (Lovenox -) 40 mg SQ DAILY [facility] Last Admin: 10/30/17 10:26 Dose: 40 mg Fluticasone Propionate (Flonase -) 1 spray NS DAILY [facility] Last Admin: 10/30/17 10:26 Dose: 1 spray Guaifenesin (Robitussin -) 10 ml PO Q6HPO [facility] Last Admin: 10/30/17 05:57 Dose: 10 ml Vancomycin HCl (Vancomycin 1 Gm Premix -) 1 gm in 200 mls @ 133.333 mls/hr IVPB 0300,1500 [facility] PRN Reason: Protocol Last Admin: 10/30/17 03:45 Dose: 133.333 mls/hr Aztreonam 1 gm/ Dextrose 50 mls @ 100 mls/hr IVPB Q8H-IV [facility] PRN Reason: Protocol Last Admin: 10/30/17 10:23 Dose: 100 mls/hr Ipratropium [place] (Atrovent 0.02% Nebulizer -) 1 amp NEB RQID [facility] Last Admin: 10/30/17 07:24 Dose: 1 amp Lorazepam (Ativan -) 1 mg GT DAILY PRN PRN Reason: seizure Non-Formulary Medication (Rufinamide [Banzel]) 1,600 mg GT BID [facility] Saliva Substitute (Mouthkote Solution -) 1 applic MM DAILY [facility] Last Admin: 10/30/17 10:25 Dose: 1 applic Topiramate (Topamax -) 300 mg GT AM [facility] Last Admin: 10/30/17 06:03 Dose: 300 mg Topiramate (Topamax -) 400 mg GT HS [facility] Last Admin: 10/29/17 22:37 Dose: 400 mg Zonisamide (Zonisamide) 200 mg GT BID [facility] Last Admin: 10/30/17 11:08 Dose: 200 mg - Objective Vital Signs: Vital Signs Temperature 98.1 F 10/30/17 06:00 Pulse Rate 108 H 10/30/17 06:00 Respiratory Rate 20 10/30/17 06:00 Blood Pressure 117/72 10/30/17 06:00 O2 Sat by Pulse Oximetry (%) 100 10/29/17 21:00 Constitutional: Yes: No Distress Eyes: Yes: Conjunctiva Clear Cardiovascular: Yes: Regular Rate and Rhythm, S1, S2 Respiratory: Yes: Rhonchi Gastrointestinal: Yes: Normal Bowel Sounds, Soft Labs: CBC, BMP 10/30/17 07:17 10/30/17 07:17 INR, PTT INR 1.03 (0.82-1.09) 10/25/17 15:20 Assessment/Plan RLL pneumonia Possible sepsis secondary to pneumonia PCN/ Cephalosporin allergies CP/MR Repeat BC no growth Day # 6 IV antibiotics Clinically improved Oral antibiotic options limited with PCN/ cephalosporin allergies May resume levaquin 500mg po qd x 4d
--- NOTE | 2017-10-30 15:13 | DS ---
Physical Exam: SUBJECTIVE: Patient seen and examined at bedside. Pt nonverbal. Afebrile and stable. OBJECTIVE: Vital Signs Period Temp Pulse Resp BP Sys/Grossman Pulse Ox Last 24 Hr 98.1 F-99.9 F 102-111 18-22 116-122/70-74 100 PHYSICAL EXAM Pt nonverbal. GENERAL: in no apparent distress. HEAD: Normal with no signs of trauma. EYES: sclera anicteric, conjunctiva clear. No ptosis. ENT: oropharynx clear without exudates, dry mucous membranes. NECK: Trachea midline, full range of motion, supple. LUNGS: no wheezes, lungs CTA, no accessory muscle use. HEART: Regular rate and rhythm, S1, S2 without murmur, rub or gallop. ABDOMEN: Soft, nondistended, normoactive bowel sounds, no guarding, no rebound, no hepatosplenomegaly, no masses. EXTREMITIES: contracted feet NEUROLOGICAL: unable to assess. PSYCH: nonverbal SKIN: Warm, dry, normal turgor, no rashes or lesions noted LABS Laboratory Results - last 24 hr 10/30/17 10/30/17 07:17 07:17 WBC 8.6 RBC 3.75 L Hgb 12.5 Hct 37.2 MCV 99.1 H MCH 33.4 MCHC 33.7 RDW 13.1 Plt Count 220 D MPV 7.4 L Neutrophils % 67.7 Lymphocytes % 21.8 Monocytes % 7.3 Eosinophils % 2.8 Basophils % 0.4 Sodium 138 Potassium 4.1 Chloride 103 Carbon Dioxide 28 Anion Gap 7 L BUN 5 L Creatinine < 0.2 L Creat Clearance w eGFR > 60 Random Glucose 89 Calcium 8.1 L Total Bilirubin 0.3 D AST 21 ALT 49 Alkaline Phosphatase 133 H Total Protein 6.7 Albumin 3.1 L HOSPITAL COURSE: Date of Admission:10/25/17 Date of Discharge: 10/30/17 Pt is a 27 yo young man with PMH of cerebral palsy, epilepsy, scoliosis, functional quadriplegia, intellectual disability, and dysphagia s/p GT who presented from [facility] after found to be febrile despite receiving 3 days of Levaquin 750mg (started on 10/23). Last discharged here on for aspiration PNA and a 10 day course of Levaquin. Pt was found to be hyponatremic with transaminitis on initial labs in ED. He was tachycardic and febrile. Pt was admitted for sepsis likely 2/2 aspiration PNA. He was seen by ID and treated with Vancomycin and Aztreonam. PanCx revealed only urinary E. feacalis (likely unrelated). Pt received home medications throughout his stay. He was given usual tube feeds. He did require suctioning of oral secretions. Hyponatremia resolved on hospital day 2. Transaminitis resolved on 10/29. Pt is currently afebrile, not in distress, and stable for transfer back to [facility]. Pt had witnessed O2 sat 91% off oxygen. Minutes to complete discharge: 30 Discharge Summary Reason For Visit: HYPONATREMIA; PNEUMONIA Current Active Problems Hyponatremia (Acute) PNA (pneumonia) (Acute) Condition: Good - Instructions Diet, Activity, Other Instructions: You are being transferred back to [facility]. Continue your tube feeds as previously. You were treated for low sodium and lung infection. Continue all your medications as before. Take Levaquin for 4 days. You may benefit from Chest physical therapy. Referrals: Luis Miguel Melendez Jr [Primary Care Provider] - Disposition: HOME - Home Medications Comprehensive Discharge Medication List: Ambulatory Orders Carbamazepine 300 mg GT 1200 09/27/17 Carbamazepine 400 mg GT BID 09/27/17 Clobazam [Onfi] 5 mg GT AM 09/27/17 Clobazam [Onfi] 10 mg GT HS 09/27/17 Diazepam Rectal Gel [Diastat Rectal Gel -] 10 mg RC PRN 09/27/17 LORazepam [Ativan] 1 mg GT DAILY PRN 09/27/17 Rufinamide [Banzel] 1,600 mg GT BID 09/27/17 Topiramate [Topamax -] 400 mg GT HS 09/27/17 Topiramate [Topamax] 300 mg GT AM 09/27/17 Zonisamide [Zonegran] 200 mg GT BID 09/27/17 Zonisamide [Zonegran] 250 mg GT HS 09/27/17 Ipratropium 0.02% Nebulizer [Atrovent 0.02% Nebulizer -] 1 amp NEB RQID PRN amp 09/30/17 Bisacodyl [Dulcolax] 10 mg RC DAILY PRN 10/25/17 Fluticasone Prop 0.05% Nasal [Flonase -] 1 - 2 spray NS DAILY 10/25/17 Nutritional Supplement [Replete] 250 ml GT ASDIR 10/25/17 Polyethylene Glycol 3350 [Miralax 119 gm Btl -] 17 gm PO Q2D 10/29/17 Bisacodyl Suppository [Dulcolax Suppository -] 10 mg RC DAILY PRN supp.rect 03/11 Clobazam [Onfi -] 10 mg PO HS tablet MDD 10 10/30/17 Enoxaparin [Lovenox -] 40 mg SQ DAILY disp.syrin 10/30/17 Fluticasone Prop 0.05% Nasal [Flonase -] 1 spray NS DAILY spray 10/30/17 Guaifenesin [Robitussin -] 10 ml PO Q6HPO cup 10/30/17 Ipratropium 0.02% Nebulizer [Atrovent 0.02% Nebulizer -] 1 amp NEB RQID amp 03/11 Levofloxacin [Levaquin] 500 mg PO DAILY #4 tablet 10/30/17 Lytes/Yerba Agueda [Mouthkote Solution -] 1 applic MM DAILY applic 10/30/17 This patient is new to me today: No Emergency Visit: No Critical Care patient: No - Discharge Referral Referred to [facility] No
--- NOTE | 2017-10-30 17:42 | PN ---
Teaching Attending Note Name of Resident: Raciel Woodson ATTENDING PHYSICIAN STATEMENT I saw and evaluated the patient. I reviewed the resident's note and discussed the case with the resident. I agree with the resident's findings and plan as documented with exceptions below. SUBJECTIVE: patient seen and examined. nonverbal, comfortable. OBJECTIVE: Vital Signs Period Temp Pulse Resp BP Sys/Grossman Pulse Ox Last 24 Hr 98.1 F-99.9 F 98-108 20-24 117-135/70-86 99-100 Intake & Output 10/27/17 10/28/17 10/29/17 10/30/17 23:59 23:59 23:59 23:59 Intake Total 3725 4330 5285 200 Output Total 2 Balance 3723 4330 5285 200 Weight 126 lb 127 lb 12.8 oz 124 lb 3.2 oz 122 lb 3.2 oz General: sitting in bed, no acute distress, no tachypnea today Chest: decreased effort, improved air entry and coarse rales Home Medication List Medication Instructions Recorded Confirmed Type Carbamazepine 300 mg GT 1200 09/27/17 10/25/17 History Carbamazepine 400 mg GT BID 09/27/17 10/25/17 History Clobazam [Onfi] 5 mg GT AM 09/27/17 10/25/17 History Clobazam [Onfi] 10 mg GT HS 09/27/17 10/25/17 History Diazepam Rectal Gel [Diastat 10 mg RC PRN 09/27/17 10/25/17 History Rectal Gel -] LORazepam [Ativan] 1 mg GT DAILY PRN 09/27/17 10/25/17 History Rufinamide [Banzel] 1,600 mg GT BID 09/27/17 10/25/17 History Topiramate [Topamax -] 400 mg GT HS 09/27/17 10/25/17 History Topiramate [Topamax] 300 mg GT AM 09/27/17 10/25/17 History Zonisamide [Zonegran] 200 mg GT BID 09/27/17 10/25/17 History Zonisamide [Zonegran] 250 mg GT HS 09/27/17 10/25/17 History Bisacodyl [Dulcolax] 10 mg RC DAILY PRN 10/25/17 10/25/17 History Fluticasone Prop 0.05% Nasal 1 - 2 spray NS DAILY 10/25/17 10/25/17 History [Flonase -] Nutritional Supplement [Replete] 250 ml GT ASDIR 10/25/17 10/25/17 History Polyethylene Glycol 3350 [Miralax 17 gm PO Q2D 10/29/17 10/29/17 History 119 gm Btl -] Active Medications Generic Name Dose Route Start Last Admin Trade Name Freq PRN Reason Stop Dose Admin Acetaminophen 650 mg 10/25/17 21:23 10/28/17 06:32 Tylenol Oral Solution - GT 650 mg Q6H PRN Administration FEVER Bisacodyl 10 mg 10/25/17 21:18 Dulcolax Suppository - RC DAILY PRN CONSTIPATION Carbamazepine 300 mg 10/26/17 12:00 10/30/17 11:49 Tegretol Oral Suspension - GT 300 mg DAILY@1200 [facility] Administration Carbamazepine 400 mg 10/26/17 08:00 10/30/17 08:23 Tegretol Oral Suspension - GT 400 mg BID@0800,1830 [facility] Administration Clobazam 5 mg 10/26/17 07:00 10/30/17 06:00 Onfi - PO 5 mg AM [facility] Administration Clobazam 10 mg 10/25/17 22:00 10/29/17 22:36 Onfi - PO 10 mg HS [facility] Administration Diazepam 10 mg 10/25/17 21:30 Diastat Rectal Gel - RC DAILY PRN SEIZURES Enoxaparin Sodium 40 mg 10/26/17 10:00 10/30/17 10:26 Lovenox - SQ 40 mg DAILY [facility] Administration Fluticasone Propionate 1 spray 10/26/17 10:00 10/30/17 10:26 Flonase - NS 1 spray DAILY [facility] Administration Guaifenesin 10 ml 10/29/17 00:00 10/30/17 11:49 Robitussin - PO 10 ml Q6HPO [facility] Administration Vancomycin HCl 1 gm in 200 mls @ 133.333 mls/hr 10/26/17 14:30 10/30/17 15:02 Vancomycin 1 Gm Premix - IVPB Not Given 0300,1500 [facility] Protocol Aztreonam 1 gm/ Dextrose 50 mls @ 100 mls/hr 10/26/17 18:00 10/30/17 10:23 IVPB 100 mls/hr Q8H-IV [facility] Administration Protocol Ipratropium [place] 1 amp 10/27/17 12:00 10/30/17 15:37 Atrovent 0.02% Nebulizer - NEB 1 amp RQID [facility] Administration Lorazepam 1 mg 10/25/17 21:18 Ativan - GT DAILY PRN seizure Non-Formulary Medication 1,600 mg 10/25/17 22:00 Rufinamide [Banzel] GT BID [facility] Saliva Substitute 1 applic 10/28/17 14:45 10/30/17 10:25 Mouthkote Solution - MM 1 applic DAILY [facility] Administration Topiramate 300 mg 10/26/17 07:00 10/30/17 06:03 Topamax - GT 300 mg AM [facility] Administration Topiramate 400 mg 10/25/17 22:00 10/29/17 22:37 Topamax - GT 400 mg HS [facility] Administration Zonisamide 200 mg 10/26/17 15:17 10/30/17 11:08 Zonisamide GT 200 mg BID [facility] Administration Laboratory Results - last 24 hr 10/30/17 10/30/17 07:17 07:17 WBC 8.6 RBC 3.75 L Hgb 12.5 Hct 37.2 MCV 99.1 H MCH 33.4 MCHC 33.7 RDW 13.1 Plt Count 220 D MPV 7.4 L Neutrophils % 67.7 Lymphocytes % 21.8 Monocytes % 7.3 Eosinophils % 2.8 Basophils % 0.4 Sodium 138 Potassium 4.1 Chloride 103 Carbon Dioxide 28 Anion Gap 7 L BUN 5 L Creatinine < 0.2 L Creat Clearance w eGFR > 60 Random Glucose 89 Calcium 8.1 L Total Bilirubin 0.3 D AST 21 ALT 49 Alkaline Phosphatase 133 H Total Protein 6.7 Albumin 3.1 L Microbiology 10/25/17 15:28 Blood - Peripheral Venous Blood Culture - Final NO GROWTH AFTER 5 DAYS INCUBATION 10/25/17 15:28 Blood - Peripheral Venous Blood Culture - Final NO GROWTH AFTER 5 DAYS INCUBATION 10/28/17 11:55 Blood - Peripheral Venous Blood Culture - Preliminary NO GROWTH OBTAINED AFTER 48 HOURS, INCUBATION TO CONTINUE FOR 3 DAYS. 10/28/17 11:40 Blood - Peripheral Venous Blood Culture - Preliminary NO GROWTH OBTAINED AFTER 48 HOURS, INCUBATION TO CONTINUE FOR 3 DAYS. 10/26/17 09:19 Sputum - Expectorated Gram Stain - Final 05/05/18 09:19 Sputum - Expectorated Sputum Culture - Final NORMAL RESPIRATORY BENSON 10/26/17 15:15 Urine For Antigen Detection Legionella Antigen - Final 10/26/17 15:15 Urine For Antigen Detection Streptococcus pneumoniae Antigen (M - Final 10/25/17 15:20 Urine - Urine Clean Catch Urine Culture - Final Enterococcus Faecalis 10/26/17 15:15 Nasopharyngeal Swab Influenza Types A,B Antigen (RADHA) - Final 10/26/17 15:15 Nasopharyngeal Swab - Final ASSESSMENT AND PLAN: 27 yom with PMHx of cerebral palsy, epilepsy, scoliosis, functional quadriplegia , intellectual disability, dysphagia s/p PEG, recently treated for PNA with 10 days of levaquin in 09/2017, admitted with persistent fevers s/p 3 days of outpatient levaquin. -Sepsis likely secondary to aspiration PNA -Transaminitis -Cerebral palsy -Scoliosis -Functional quadriplegia -Dysphagia s/p PEG -Hyponatremia resolved Plan: Aztreonam/vancomycin day 7,Cultures neg, afebrile, clinically improved. ID input noted, Change to levaquin for 4 days. LFts normalized. RUQ US and hep panel noted. Continue tube feeds, home meds. DVTPPx dispo dc back to [place] today. PLan discussed with father at bedside and all questions answered.
[2017-10-30] MEDS: TOPIRAMATE 200 MG TABLET (FP) GT SCH (21:45)
[2017-10-31] MEDS: AZTREONAM 1 GM in DEXTROSE 5%-WATER - 50 ML IVPB SCH (05:26)
[2017-10-31] MEDS: VANCOMYCIN 1 GM PREMIX - 1 GM/200 ML BAG IVPB SCH (05:26)
[2017-10-31] MEDS: guaiFENesin 200 MG/10 ML 10 ML UNIT-DOSE CUPS PO SCH (05:44)
[2017-10-31] MEDS: cloBAZam 10 MG TABLET PO SCH (06:02)
[2017-10-31] MEDS: TOPIRAMATE 100 MG TABLET GT SCH (06:03)
[2017-10-31] MEDS: IPRATROPIUM BR 0.02% 0.5 MG/2.5 ML VIAL.NEB. NEB SCH ×2 (07:15→10:59)
--- NOTE | 2017-10-31 08:44 | PN ---
Teaching Attending Note Name of Resident: Raciel Woodson ATTENDING PHYSICIAN STATEMENT I saw and evaluated the patient. I reviewed the resident's note and discussed the case with the resident. I agree with the resident's findings and plan as documented with exceptions below. SUBJECTIVE: Patient seen and examined, non verbal, comfortable. OBJECTIVE: Vital Signs Period Temp Pulse Resp BP Sys/Grossman Pulse Ox Last 24 Hr 98.5 F-99.8 F 98-107 20-24 113-135/69-86 98-99 Intake & Output 10/28/17 10/29/17 10/30/17 10/31/17 23:59 23:59 23:59 23:59 Intake Total 4330 5285 1580 1330 Balance 4330 5285 1580 1330 Weight 127 lb 12.8 oz 124 lb 3.2 oz 122 lb 3.2 oz 121 lb 1.6 oz General: no acute distress Chest: poor effort all over, improved rhonchi Home Medication List Medication Instructions Recorded Confirmed Type Carbamazepine 300 mg GT 1200 09/27/17 10/25/17 History Carbamazepine 400 mg GT BID 09/27/17 10/25/17 History Clobazam [Onfi] 5 mg GT AM 09/27/17 10/25/17 History Clobazam [Onfi] 10 mg GT HS 09/27/17 10/25/17 History Diazepam Rectal Gel [Diastat 10 mg RC PRN 09/27/17 10/25/17 History Rectal Gel -] LORazepam [Ativan] 1 mg GT DAILY PRN 09/27/17 10/25/17 History Rufinamide [Banzel] 1,600 mg GT BID 09/27/17 10/25/17 History Topiramate [Topamax -] 400 mg GT HS 09/27/17 10/25/17 History Topiramate [Topamax] 300 mg GT AM 09/27/17 10/25/17 History Zonisamide [Zonegran] 200 mg GT BID 09/27/17 10/25/17 History Zonisamide [Zonegran] 250 mg GT HS 09/27/17 10/25/17 History Bisacodyl [Dulcolax] 10 mg RC DAILY PRN 10/25/17 10/25/17 History Fluticasone Prop 0.05% Nasal 1 - 2 spray NS DAILY 10/25/17 10/25/17 History [Flonase -] Nutritional Supplement [Replete] 250 ml GT ASDIR 10/25/17 10/25/17 History Polyethylene Glycol 3350 [Miralax 17 gm PO Q2D 10/29/17 10/29/17 History 119 gm Btl -] Active Medications Generic Name Dose Route Start Last Admin Trade Name Freq PRN Reason Stop Dose Admin Acetaminophen 650 mg 10/25/17 21:23 10/28/17 06:32 Tylenol Oral Solution - GT 650 mg Q6H PRN Administration FEVER Bisacodyl 10 mg 10/25/17 21:18 Dulcolax Suppository - RC DAILY PRN CONSTIPATION Carbamazepine 300 mg 10/26/17 12:00 10/30/17 11:49 Tegretol Oral Suspension - GT 300 mg DAILY@1200 [facility] Administration Carbamazepine 400 mg 10/26/17 08:00 10/30/17 18:19 Tegretol Oral Suspension - GT 400 mg BID@0800,1830 [facility] Administration Clobazam 5 mg 10/26/17 07:00 10/31/17 06:02 Onfi - PO 5 mg AM [facility] Administration Clobazam 10 mg 10/25/17 22:00 10/30/17 21:45 Onfi - PO 10 mg HS [facility] Administration Diazepam 10 mg 10/25/17 21:30 Diastat Rectal Gel - RC DAILY PRN SEIZURES Enoxaparin Sodium 40 mg 10/26/17 10:00 10/30/17 10:26 Lovenox - SQ 40 mg DAILY [facility] Administration Fluticasone Propionate 1 spray 10/26/17 10:00 10/30/17 10:26 Flonase - NS 1 spray DAILY [facility] Administration Guaifenesin 10 ml 10/29/17 00:00 10/31/17 05:44 Robitussin - PO 10 ml Q6HPO [facility] Administration Ipratropium [place] 1 amp 10/27/17 12:00 10/31/17 07:15 Atrovent 0.02% Nebulizer - NEB 1 amp RQID [facility] Administration Levofloxacin 500 mg 10/31/17 10:00 Levaquin PO DAILY [facility] Lorazepam 1 mg 10/25/17 21:18 Ativan - GT DAILY PRN seizure Non-Formulary Medication 1,600 mg 10/25/17 22:00 Rufinamide [Banzel] GT BID [facility] Saliva Substitute 1 applic 10/28/17 14:45 10/30/17 10:25 Mouthkote Solution - MM 1 applic DAILY [facility] Administration Topiramate 300 mg 10/26/17 07:00 10/31/17 06:03 Topamax - GT 300 mg AM [facility] Administration Topiramate 400 mg 10/25/17 22:00 10/30/17 21:45 Topamax - GT 400 mg HS [facility] Administration Zonisamide 200 mg 10/26/17 15:17 10/30/17 21:46 Zonisamide GT 200 mg BID [facility] Administration Microbiology 10/25/17 15:28 Blood - Peripheral Venous Blood Culture - Final NO GROWTH AFTER 5 DAYS INCUBATION 10/25/17 15:28 Blood - Peripheral Venous Blood Culture - Final NO GROWTH AFTER 5 DAYS INCUBATION 10/28/17 11:55 Blood - Peripheral Venous Blood Culture - Preliminary NO GROWTH OBTAINED AFTER 48 HOURS, INCUBATION TO CONTINUE FOR 3 DAYS. 10/28/17 11:40 Blood - Peripheral Venous Blood Culture - Preliminary NO GROWTH OBTAINED AFTER 48 HOURS, INCUBATION TO CONTINUE FOR 3 DAYS. 10/26/17 09:19 Sputum - Expectorated Gram Stain - Final 10/26/17 09:19 Sputum - Expectorated Sputum Culture - Final NORMAL RESPIRATORY BENSON 10/26/17 15:15 Urine For Antigen Detection Legionella Antigen - Final 10/26/17 15:15 Urine For Antigen Detection Streptococcus pneumoniae Antigen (M - Final 10/25/17 15:20 Urine - Urine Clean Catch Urine Culture - Final Enterococcus Faecalis 10/26/17 15:15 Nasopharyngeal Swab Influenza Types A,B Antigen (RADHA) - Final 10/26/17 15:15 Nasopharyngeal Swab - Final ASSESSMENT AND PLAN: 27 yom with PMHx of cerebral palsy, epilepsy, scoliosis, functional quadriplegia , intellectual disability, dysphagia s/p PEG, recently treated for PNA with 10 days of levaquin in 09/2017, admitted with persistent fevers s/p 3 days of outpatient levaquin. -Sepsis likely secondary to aspiration PNA -Transaminitis -Cerebral palsy -Scoliosis -Functional quadriplegia -Dysphagia s/p PEG -Hyponatremia resolved Plan: s/p 7 days of aztreonam/vanco, change to PO levaquin.,Cultures neg, afebrile, clinically improved. ID input noted, LFts normalized. RUQ US and hep panel noted. na normalized. Continue tube feeds, home meds. DVTPPx dispo d/c to [facility] today.
[2017-10-31] MEDS ORDERED: PT OWN MED DRAWER 7, Y5N ONE (10:16)
[2017-10-31] MEDS: ENOXAPARIN NA (PORCINE) 40 MG/0.4 ML DISP.SYRIN SQ SCH (10:18)
[2017-10-31] MEDS: LYTES/YERBA SANTA 240 ML BOTTLE MM SCH (10:19)
[2017-10-31] MEDS: ZONISAMIDE 100 MG/10 ML ORAL SUSPENSION GT SCH (10:29)
[2017-10-31] MEDS: FLUTICASONE PROP 0.05% 16 GM NASAL SPRAY NS SCH (10:29)
[2017-10-31] MEDS: carBAMazepine 200 MG/10 ML UNIT-DOSE CUP GT SCH (10:29)
[2017-10-31] MEDS ORDERED: RUFINAMIDE GT SCH (11:00)
[2017-10-31] MEDS ORDERED: levoFLOXacin 750 MG TABLET GT SCH (11:15)
[2017-10-31 12:12] VITALS: BP 121/78; PULSE 102; TEMP 98
== END 2017-10-31 12:23 | disposition home or self-care (01) | DRG 871 ==
LOC: JER 14:00 → JERBED 19:55 → J8W 10-26
PROVIDERS: ADMIT Internal Medicine; ATTEND Hospitalist
PROC: 3E0G76Z Introduction of Nutritional Substance into Upper GI, Via Natural or Artificial Opening (ICD-10-PCS; principal; 2017-10-28)
DX: A41.9 Sepsis, unspecified organism (principal); J69.0 Pneumonitis due to inhalation of food and vomit; R53.2 Functional quadriplegia; E87.1 Hypo-osmolality and hyponatremia; G40.909 Epilepsy, unspecified, not intractable, without status epilepticus; Z93.1 Gastrostomy status; Z99.3 Dependence on wheelchair; G80.9 Cerebral palsy, unspecified; F79 Unspecified intellectual disabilities; Z91.040 Latex allergy status; Z88.0 Allergy status to penicillin; Z91.013 Allergy to seafood; M41.9 Scoliosis, unspecified; I45.10 Unspecified right bundle-branch block; R74.0 Nonspecific elevation of levels of transaminase and lactic acid dehydrogenase [LDH]; Z95.810 Presence of automatic (implantable) cardiac defibrillator; R13.10 Dysphagia, unspecified
CPT/HCPCS: 36415; 71045-TC-FY; 76705-TC; 80048; 80053; 80076; 80307; 81003; 81015; 82803; 83605; 84484; 85025; 85610; 85730; 86704; 86706; 86708; 87040; 87070; 87086; 87186; 87205; 87340; 87804; 87899; 87900; 87902; 93005; 93010; 93970-TC; 94640; 99285-25; G0480; J7030

== ENCOUNTER 2017-11-01 13:14 | Emergency (ER) | payer OTHER ==
[2017-11-01] MEDS ORDERED: SODIUM CHLORIDE 2,000 ML IV STA (13:18)
--- NOTE | 2017-11-01 13:18 | PDOC ---
Attending Attestation - Resident Resident Name: Nereida Sexton - ED Attending Attestation I have performed the following: I have examined & evaluated the patient, The case was reviewed & discussed with the resident, I agree w/resident's findings & plan, Exceptions are as noted - HPI HPI: 11/01/17 13:21 27y M hx of CP presents from [facility] hx of cp, developmental delay, recent admission for congestion/cough treated for pna, presents with episode of hypoxia and more noisy breathing, was placed on O2 by faicility and sent to ED for evlaution. history limited as pt is nonverbal. aide notes pt was breathing very noisy prior to arrival. pt had a large diarrhea bm here, but hsa since been at his [facility]. pts o2 was removed, currently sating around 96% on RA nontachypneic, no distress +congestion/transmitted breath sounds, but no focal rales PEG in place, abd soft nontender +erythema c/w nyasia in groin +stage 1 decub ulcer on sacrum w/o skin breakdown will ck lbas, cxr will keep pt off o2 and will reassess suspect congestion/ - Physicial Exam PE: 11/05/17 05:51 see above - Medical Decision Making 11/01/17 16:02 pts labs reviewed currently normal status per dad, nontachyneic hsa been saturating at 97-98% on RA since arrival abd soft cxr unchanged, no focal nfiltrate csae dw dr. thakur agree with dc back to [place] father is bedside agrees with management and dc back to [place]
[2017-11-01 13:28] VITALS: BMI 50.9
--- NOTE | 2017-11-01 13:32 | PDOC ---
History of Present Illness - General Stated Complaint: SHORTNESS OF BREATH Time Seen by Provider: 11/01/17 13:17 History Source: EMS, Detention Records Exam Limitations: No Limitations - History of Present Illness Initial Comments: 27 male with h/o CP, wheelchair bound, functional quadriplegia MR/DD, epilepsy, dysphagia s/p PEG tube placement, scoliosis, and recent PNA (admitted in the beginning of September here at [facility]) who was BIBA from his care facility ([facility]) for acute worsening of SOB and hypoxia. He was just discharged back to [facility] from [facility] yesterday where he had been admitted for PNA, tx for 7 days with vancomycin and aztreonam, switched to PO Levaquin, and seemed to be doing much better subsequently. He apparently did well overnight at [facility] but had the onset of symptoms just [employer] and had diffuse coarse breath sounds. The patient himself is nonverbal and unable to provide any history. He has medical allergies to PCN and cephalosporins. Past History - Past Medical History Allergies/Adverse Reactions: Allergies Allergy/AdvReac Type Severity Reaction Status Date / Time albuterol Allergy Verified 10/25/17 14:09 Cephalosporins Allergy Verified 10/25/17 14:09 latex Allergy Verified 10/25/17 14:09 Penicillins Allergy Verified 10/25/17 14:09 shrimp Allergy Verified 10/25/17 14:09 wool Allergy Verified 10/25/17 14:09 Home Medications: Ambulatory Orders Carbamazepine 300 mg GT 1200 09/27/17 Carbamazepine 400 mg GT BID 09/27/17 Clobazam [Onfi] 5 mg GT AM 09/27/17 Clobazam [Onfi] 10 mg GT HS 09/27/17 Diazepam Rectal Gel [Diastat Rectal Gel -] 10 mg RC PRN 09/27/17 LORazepam [Ativan] 1 mg GT DAILY PRN 09/27/17 Rufinamide [Banzel] 1,600 mg GT BID 09/27/17 Topiramate [Topamax -] 400 mg GT HS 09/27/17 Topiramate [Topamax] 300 mg GT AM 09/27/17 Zonisamide [Zonegran] 200 mg GT BID 09/27/17 Zonisamide [Zonegran] 250 mg GT HS 09/27/17 Ipratropium 0.02% Nebulizer [Atrovent 0.02% Nebulizer -] 1 amp NEB RQID PRN amp 09/30/17 Bisacodyl [Dulcolax] 10 mg RC DAILY PRN 10/25/17 Fluticasone Prop 0.05% Nasal [Flonase -] 1 - 2 spray NS DAILY 10/25/17 Nutritional Supplement [Replete] 250 ml GT ASDIR 10/25/17 Polyethylene Glycol 3350 [Miralax 119 gm Btl -] 17 gm PO Q2D 10/29/17 Bisacodyl Suppository [Dulcolax Suppository -] 10 mg RC DAILY PRN supp.rect 03/11 Clobazam [Onfi -] 10 mg PO HS tablet MDD 10 10/30/17 Enoxaparin [Lovenox -] 40 mg SQ DAILY disp.syrin 10/30/17 Fluticasone Prop 0.05% Nasal [Flonase -] 1 spray NS DAILY spray 10/30/17 Guaifenesin [Robitussin -] 10 ml PO Q6HPO cup 10/30/17 Ipratropium 0.02% Nebulizer [Atrovent 0.02% Nebulizer -] 1 amp NEB RQID amp 03/11 Levofloxacin [Levaquin] 500 mg PO DAILY #4 tablet 10/30/17 Lytes/Yerba Agueda [Mouthkote Solution -] 1 applic MM DAILY applic 10/30/17 COPD: No Seizures: Yes (epilepsy, cp,) - Surgical History Abdominal Surgery: Yes (gtube feeding) - Immunization History Immunization Up to Date: Yes - Suicide/Smoking/Psychosocial Hx Smoking History: Unknown if ever smoked Have you smoked in the past 12 months: No Information on smoking cessation initiated: No Hx Alcohol Use: No Drug/Substance Use Hx: No Substance Use Type: None Review of Systems - Review of Systems Able to Perform ROS?: No (nonverbal) *Physical Exam - Vital Signs Last Vital Signs Temp Pulse Resp BP Pulse Ox 98.1 F 112 H 28 H 113/88 97 11/01/17 13:18 11/01/17 13:18 11/01/17 13:18 11/01/17 13:18 11/01/17 13:18 - Physical Exam General Appearance: Yes: Nourished, Appropriately Dressed, Other (nonverbal, minimally active, ). No: Apparent Distress HEENT: positive: EOMI, VALENTINE, Hearing Grossly Normal. negative: Normal Voice, Scleral Icterus (R), Scleral Icterus (L), Nasal Congestion Neck: positive: Trachea midline, Supple. negative: Tender, Rigid Respiratory/Chest: positive: Crackles, Other (diffuse coarse breath sounds). negative: Lungs Clear, Respiratory Distress, Accessory Muscle Use, Labored Respiration, Rapid RR, Rhonchi, Stridor, Wheezing Cardiovascular: positive: Regular Rhythm, S1, S2, Murmur (2/6 systolic murmur), Tachycardia. negative: Edema, JVD Gastrointestinal/Abdominal: positive: Normal Bowel Sounds, Flat, Soft. negative : Tender, Organomegaly, Pulsatile Mass, Guarding Musculoskeletal: positive: Normal Inspection. negative: Decreased Range of Motion, Vertebral Tenderness Extremity: positive: Normal Capillary Refill, Normal Inspection, Normal Range of Motion. negative: Tender, Cyanosis Integumentary: positive: Normal Color, Dry, Warm. negative: Erythema, Rash, Bruising Neurologic: positive: Alert, Normal Mood/Affect, Other (not moving extremities, tracking occasionally with eyes, otherwise acting per baseline per family). negative: EOM Palsy, Facial Droop Heart Score/ECG Review #1 Sinus tachycardia, rate of 107, right axis deviation, right atrial enlargement, incomplete RBBB, borderline QTc prolongation, no ischemic changes, otherwise unremarkable EKG. ED Treatment Course - LABORATORY CBC & Chemistry Diagram: 11/01/17 14:25 11/01/17 14:25 - RADIOLOGY Radiology Studies Ordered: Category Date Time Status CHEST X-RAY PORTABLE* [RAD] Stat Radiology 11/01/17 13:18 Ordered Medical Decision Making - Medical Decision Making Patient p/w SOB, cough, chest discomfort, and fever. Initial Vital Signs Temp Pulse Resp BP Pulse Ox 98.1 F 112 H 28 H 113/88 97 11/01/17 13:18 11/01/17 13:18 11/01/17 13:18 11/01/17 13:18 11/01/17 13:18 Exam: Nonverbal, no distress, bilateral coarse breath sounds, 98% saturation on 3 LPM, 2/6 systolic murmur, otherwise exam per baseline status. DDX IBNLT: PNA, bronchitis, COPD, asthma, CHF, other lung disease, viral URI ( e.g. influenza), laryngitis, tracheitis, etc. W/U ordered: CXR EKG CBCD CMP Mg Phos Cardiac panel BNP. TX ordered: IVF EKG: Sinus tachycardia, rate of 107, right axis deviation, right atrial enlargement, incomplete RBBB, borderline QTc prolongation, no ischemic changes, otherwise unremarkable EKG. CXR: No change from CXR from 10/30/17 Laboratory Tests 11/01/17 11/01/17 11/01/17 14:00 14:25 14:25 WBC 8.9 RBC 4.22 Hgb 14.3 D Hct 41.1 MCV 97.3 H MCH 33.8 H MCHC 34.8 RDW 13.6 Plt Count 396 D MPV 8.5 D Neutrophils % 69.8 Lymphocytes % 20.9 Monocytes % 7.8 Eosinophils % 1.0 Basophils % 0.5 PT with INR 13.30 H INR 1.18 H PTT (Actin FS) 32.4 VBG pH POC VBG pCO2 POC VBG pO2 Mixed VBG HCO3 Sodium Potassium Chloride Carbon Dioxide Anion Gap BUN Creatinine Creat Clearance w eGFR Random Glucose Lactic Acid Calcium Total Bilirubin AST ALT Alkaline Phosphatase Creatine Kinase Troponin I B-Natriuretic Peptide Total Protein Albumin Urine Color Yellow Urine Appearance Cloudy Urine pH 8.0 Ur Specific [place] 1.008 Urine Protein Negative Urine Glucose (UA) Negative Urine Ketones Negative Urine Blood Negative Urine Nitrite Negative Urine Bilirubin Negative Urine Urobilinogen Negative Ur Leukocyte Esterase Negative 11/01/17 11/01/17 11/01/17 14:25 14:25 14:25 WBC RBC Hgb Hct MCV MCH MCHC RDW Plt Count MPV Neutrophils % Lymphocytes % Monocytes % Eosinophils % Basophils % PT with INR INR PTT (Actin FS) VBG pH POC VBG pCO2 POC VBG pO2 Mixed VBG HCO3 Sodium Cancelled Potassium Cancelled Chloride Cancelled Carbon Dioxide Cancelled Anion Gap Cancelled BUN Cancelled Creatinine Cancelled Creat Clearance w eGFR Cancelled Random Glucose Cancelled Lactic Acid 1.4 Calcium Cancelled Total Bilirubin Cancelled AST Cancelled ALT Cancelled Alkaline Phosphatase Cancelled Creatine Kinase Cancelled Troponin I Cancelled B-Natriuretic Peptide Cancelled Cancelled Total Protein Cancelled Albumin Cancelled Urine Color Urine Appearance Urine pH Ur Specific [place] Urine Protein Urine Glucose (UA) Urine Ketones Urine Blood Urine Nitrite Urine Bilirubin Urine Urobilinogen Ur Leukocyte Esterase 11/01/17 11/01/17 14:25 14:39 WBC RBC Hgb Hct MCV MCH MCHC RDW Plt Count MPV Neutrophils % Lymphocytes % Monocytes % Eosinophils % Basophils % PT with INR INR PTT (Actin FS) VBG pH 7.35 POC VBG pCO2 53.1 H POC VBG pO2 42.9 Mixed VBG HCO3 28.6 H Sodium Potassium Chloride Carbon Dioxide Anion Gap BUN Creatinine Creat Clearance w eGFR Random Glucose Lactic Acid Calcium Total Bilirubin AST ALT Alkaline Phosphatase Creatine Kinase Cancelled Troponin I Cancelled B-Natriuretic Peptide Total Protein Albumin Urine Color Urine Appearance Urine pH Ur Specific [place] Urine Protein Urine Glucose (UA) Urine Ketones Urine Blood Urine Nitrite Urine Bilirubin Urine Urobilinogen Ur Leukocyte Esterase Repeat Vital Signs Temperature 98.2 F 11/01/17 15:02 Pulse Rate 108 H 11/01/17 15:02 Respiratory Rate 22 11/01/17 15:02 Blood Pressure 101/42 11/01/17 15:02 O2 Sat by Pulse Oximetry (%) 100 11/01/17 15:02 Reassessment: Exam unchanged except slightly improved breath sounds, 95% pulse ox on RA. Workup is not concerning for emergency-level pathology at this time. The decision for disposition is carefully considered with the patient's family in shared decision making. Dr. Bal spoke with Dr. Melendez and all parties are comfortable with DC back to [facility]. They will follow up with their regular doctor in the next 1-3 days. Return precautions are discussed and they will come back to the ER if necessary. *DC/Admit/Observation/Transfer Diagnosis at time of Disposition: SOB (shortness of breath), Hypoxia - Discharge Dispostion Disposition: LONGTERM FACILITY Condition at time of disposition: Stable Decision to Admit order: No - Referrals Referrals: Luis Miguel Melendez Jr [Non Staff, Medical] - - Patient Instructions Additional Instructions: Edouard was seen in the ER for shortness of breath and low oxygen level. We did lab work, a chest X-ray, and an EKG, and we see no new findings that could be concerning. After our assessment, we do not believe there is a medical emergency at this time, and we believe it is safe to go back to [facility]. Please follow up with your regular doctor in 1-3 days. If there are any new or worsening symptoms, please come back to the ER at any time (24 hours a day). If the symptoms appear severe or life-threatening, please call 911 to have an ambulance take you to the ER. - Post Discharge Activity
[2017-11-01 14:19] LABS: URINE APPEARANCE CLOUDY; URINE BILIRUBIN NEGATIVE (<2.0 mg/dL); URINE COLOR YELLOW; URINE GLUCOSE (UA) NEGATIVE (NEGATIVE); URINE KETONE NEGATIVE (NEGATIVE); URINE LEUK ESTERASE NEGATIVE (NEGATIVE); URINE NITRITE NEGATIVE (NEGATIVE); URINE PROTEIN NEGATIVE (NEGATIVE); URINE UROBILINOGEN NEGATIVE mg/dL (0.2-1.0)
[2017-11-01 14:42] LABS: VENOUS PC02 53.1 mmHg (38-52); VENOUS PH 7.35 (7.32-7.42); VENOUS PO2 42.9 mmHg (28-48)
[2017-11-01 14:44] LABS: BASO % 0.5 % (0-2.0); HEMATOCRIT 41.1 % (35.4-49); HEMOGLOBIN 14.3 GM/dL (11.7-16.9); LYMPH % 20.9 % (8-40); MCH 33.8 pg (25.7-33.7); MCHC 34.8 g/dl (32.0-35.9); MEAN CELL VOLUME 97.3 fl (80-96); MEAN PLT VOLUME 8.5 fl (7.5-11.1); MONO % 7.8 % (3.8-10.2); NEUT % 69.8 % (42.8-82.8); PLATELET COUNT 396 K/MM3 (134-434); RBC 4.22 M/mm3 (4.00-5.60); RDW 13.6 % (11.9-15.9); WHITE BLOOD COUNT 8.9 K/mm3 (4.0-10.0)
[2017-11-01 15:10] LABS: INR 1.18 (0.82-1.09); PROTHROMBIN TIME (PATIENT) 13.3 SEC (9.7-13.0)
[2017-11-01 15:12] LABS: ACTIVATED PTT 32.4 SECONDS (26.9-34.4)
[2017-11-01 17:17] VITALS: BP 114/71; PULSE 112; TEMP 98.4
--- NOTE | 2017-11-02 08:22 | EKG ---
Test Reason : Blood Pressure : / mmHG Vent. Rate : 107 BPM Atrial Rate : 107 BPM P-R Int : 142 ms QRS Dur : 090 ms QT Int : 348 ms P-R-T Axes : 052 131 049 degrees QTc Int : 464 ms POOR DATA QUALITY, INTERPRETATION MAY BE ADVERSELY AFFECTED SINUS TACHYCARDIA LEFT ATRIAL ENLARGEMENT RIGHT AXIS DEVIATION POSSIBLE RIGHT VENTRICULAR HYPERTROPHY ABNORMAL ECG WHEN COMPARED WITH ECG OF 25-OCT-2017 15:20, NO SIGNIFICANT CHANGE WAS FOUND Confirmed by DENNIS SETINBERG MD ([id number]) on 11/02/2017 8:21:51 AM Referred By: Confirmed By:DENNIS STEINBERG MD
== END 2017-11-01 17:55 ==
LOC: JER 13:14
PROC: 3E0337Z Introduction of Electrolytic and Water Balance Substance into Peripheral Vein, Percutaneous Approach (ICD-10-PCS; principal; 2017-11-01)
DX: R09.02 Hypoxemia (principal); G80.8 Other cerebral palsy; R62.59 Other lack of expected normal physiological development in childhood; F79 Unspecified intellectual disabilities; G40.909 Epilepsy, unspecified, not intractable, without status epilepticus; Z93.1 Gastrostomy status; Z87.01 Personal history of pneumonia (recurrent); Z99.3 Dependence on wheelchair; Z88.8 Allergy status to other drugs, medicaments and biological substances; L89.151 Pressure ulcer of sacral region, stage 1
CPT/HCPCS: 36415; 71045-TC-FY; 81003; 82803; 83605; 85025; 85610; 85730; 87040; 87086; 93005; 93010; 96360; 96361; 99284-25; J7030

== ENCOUNTER 2017-11-22 18:05 | Inpatient (IN) | payer OTHER ==
[2017-11-22] MEDS ORDERED: SODIUM CHLORIDE 1,000 ML IV STA ×3 (18:14→22:07)
--- NOTE | 2017-11-22 18:27 | PDOC ---
History of Present Illness - General Stated Complaint: FEVER - History of Present Illness Initial Comments: 11/22/17 18:21 Mr. Patterson is a 27 yo male w/ pmh of CP, epilepsy, MR, with g-tube; admitted 10/25-10/30 for pneumonia who presents from [facility][note 3] after he was noted to have temperature to 102.1 at 4pm today with pulse of 135. Patient was then given tylenol and sent to ER for evaluation. Per [place] paperwork he also had significant congestion today as well. Allergies: Albuterol, cephalosporins, latex, penicillins Past History - Past Medical History Allergies/Adverse Reactions: Allergies Allergy/AdvReac Type Severity Reaction Status Date / Time albuterol Allergy Verified 10/25/17 14:09 Cephalosporins Allergy Verified 10/25/17 14:09 latex Allergy Verified 10/25/17 14:09 Penicillins Allergy Verified 10/25/17 14:09 shrimp Allergy Verified 10/25/17 14:09 wool Allergy Verified 10/25/17 14:09 Home Medications: Ambulatory Orders RX: Carbamazepine 300 mg GT 1200 09/27/17 RX: Carbamazepine 400 mg GT BID 09/27/17 RX: Clobazam [Onfi] 5 mg GT AM 09/27/17 RX: Clobazam [Onfi] 10 mg GT HS 09/27/17 RX: Diazepam Rectal Gel [Diastat Rectal Gel -] 10 mg RC PRN 09/27/17 RX: LORazepam [Ativan] 1 mg GT DAILY PRN 09/27/17 RX: Rufinamide [Banzel] 1,600 mg GT BID 09/27/17 RX: Topiramate [Topamax -] 400 mg GT HS 09/27/17 RX: Topiramate [Topamax] 300 mg GT AM 09/27/17 RX: Zonisamide [Zonegran] 200 mg GT BID 09/27/17 RX: Zonisamide [Zonegran] 250 mg GT HS 09/27/17 RX: Ipratropium 0.02% Nebulizer [Atrovent 0.02% Nebulizer -] 1 amp NEB RQID PRN amp 09/30/17 RX: Bisacodyl [Dulcolax] 10 mg RC DAILY PRN 10/25/17 RX: Fluticasone Prop 0.05% Nasal [Flonase -] 1 - 2 spray NS DAILY 10/25/17 RX: Nutritional Supplement [Replete] 250 ml GT ASDIR 10/25/17 RX: Polyethylene Glycol 3350 [Miralax 119 gm Btl -] 17 gm PO Q2D 10/29/17 Levofloxacin [Levaquin] 500 mg PO DAILY #4 tablet 10/30/17 RX: Bisacodyl Suppository [Dulcolax Suppository -] 10 mg RC DAILY PRN supp.rect 10/30/17 RX: Clobazam [Onfi -] 10 mg PO HS tablet MDD 10 10/30/17 RX: Enoxaparin [Lovenox -] 40 mg SQ DAILY disp.syrin 10/30/17 RX: Fluticasone Prop 0.05% Nasal [Flonase -] 1 spray NS DAILY spray 10/30/17 RX: Guaifenesin [Robitussin -] 10 ml PO Q6HPO cup 10/30/17 RX: Ipratropium 0.02% Nebulizer [Atrovent 0.02% Nebulizer -] 1 amp NEB RQID amp 10/30/17 RX: Lytes/Yerba Agueda [Mouthkote Solution -] 1 applic MM DAILY applic 10/30/17 COPD: No Seizures: Yes (epilepsy, cp,) - Surgical History Abdominal Surgery: Yes (gtube feeding) - Immunization History Immunization Up to Date: Yes - Suicide/Smoking/Psychosocial Hx Smoking History: Unknown if ever smoked Have you smoked in the past 12 months: No Hx Alcohol Use: No Drug/Substance Use Hx: No Substance Use Type: None Review of Systems - Review of Systems Comments:: 11/22/17 18:24 Unable to obtain further *Physical Exam - Physical Exam Comments: 11/22/17 18:33 GENERAL: Awake, alert, and oriented to baseline HEAD: No signs of trauma, normocephalic, atraumatic EYES: PERRLA, EOMI, sclera anicteric, conjunctiva clear ENT: Auricles normal inspection, nares patent, oropharynx clear without exudates. Moist mucosa NECK: Normal ROM, supple, no lymphadenopathy, JVD, or masses LUNGS: +Extremely coarse breath sounds diffusely. HEART: Regular rate and rhythm, normal S1 and S2, no murmurs, rubs or gallops, peripheral pulses normal and equal bilaterally. ABDOMEN: Soft, nontender, normoactive bowel sounds. No guarding, no rebound. No masses EXTREMITIES: Normal range of motion, no edema. No clubbing or cyanosis. NEUROLOGICAL: +Unable to assess. SKIN: +Skin hot to touch; Dry, normal turgor, no rashes or lesions noted. ED Treatment Course - LABORATORY CBC & Chemistry Diagram: 11/22/17 19:15 11/22/17 20:30 - RADIOLOGY Radiology Studies Ordered: Category Date Time Status CHEST X-RAY PORTABLE* [RAD] Stat Radiology 11/22/17 18:14 Ordered Medical Decision Making - Medical Decision Making 11/22/17 21:35 Mr. Patterson is a 27 yo male w/ pmh as described who presents for evaluation of fever and tachycardia in conjunction with pulmonary congestion concerning for pneumonia/sepsis. Sepsis workup started on presentation. Motrin given IV as tylenol given at care facility at approximately 4:30pm. Patient labs concerning for WBC of 15.4. Unfortunately lactate hemolized so 2nd drawn after 1L NS. Patient noted to have dry mucous membranes; given 2L NS after blood cultures drawn. Aztreonam begun per previous visit for treatment of suspected pneumonia. 11/22/17 21:51 Patient admitted to inpatient team. Laboratory Results - last 24 hr 11/22/17 11/22/17 11/22/17 19:15 19:15 19:15 WBC 15.4 H D RBC 4.53 Hgb 14.5 Hct 43.0 MCV 94.9 MCH 31.9 MCHC 33.6 RDW 13.9 Plt Count 223 D MPV 7.4 L D Neutrophils % 76.7 Lymphocytes % 11.6 D Monocytes % 11.4 H Eosinophils % 0.0 D Basophils % 0.3 Nucleated RBC % 0 PT with INR Cancelled INR Cancelled PTT (Actin FS) Cancelled VBG pH 7.36 POC VBG pCO2 43.5 POC VBG pO2 37.3 Mixed VBG HCO3 24.0 Sodium Potassium Chloride Carbon Dioxide Anion Gap BUN Creatinine Creat Clearance w eGFR Random Glucose Lactic Acid Calcium Total Bilirubin AST ALT Alkaline Phosphatase Creatine Kinase Troponin I Total Protein Albumin 11/22/17 11/22/17 11/22/17 19:15 19:15 19:45 WBC RBC Hgb Hct MCV MCH MCHC RDW Plt Count MPV Neutrophils % Lymphocytes % Monocytes % Eosinophils % Basophils % Nucleated RBC % PT with INR INR PTT (Actin FS) VBG pH POC VBG pCO2 POC VBG pO2 Mixed VBG HCO3 Sodium Cancelled Potassium Cancelled Chloride Cancelled Carbon Dioxide Cancelled Anion Gap Cancelled BUN Cancelled Creatinine Cancelled Creat Clearance w eGFR Cancelled Random Glucose Cancelled Lactic Acid Cancelled Calcium Cancelled Total Bilirubin Cancelled AST Cancelled ALT Cancelled Alkaline Phosphatase Cancelled Creatine Kinase Troponin I Cancelled Total Protein Cancelled Albumin Cancelled 11/22/17 11/22/17 20:30 20:30 WBC RBC Hgb Hct MCV MCH MCHC RDW Plt Count MPV Neutrophils % Lymphocytes % Monocytes % Eosinophils % Basophils % Nucleated RBC % PT with INR 13.80 H INR 1.22 H PTT (Actin FS) 30.2 VBG pH POC VBG pCO2 POC VBG pO2 Mixed VBG HCO3 Sodium 128 L Potassium 3.8 Chloride 94 L Carbon Dioxide 24 Anion Gap 10 BUN 6 L Creatinine 0.3 L D Creat Clearance w eGFR > 60 Random Glucose 91 Lactic Acid Calcium 8.2 L Total Bilirubin 0.4 D AST 21 ALT 37 D Alkaline Phosphatase 178 H D Creatine Kinase 34 L Troponin I < 0.02 Total Protein 7.8 Albumin 3.6 11/22/17 23:04 *DC/Admit/Observation/Transfer Diagnosis at time of Disposition: Pneumonia Qualifiers: Pneumonia type: due to unspecified organism Laterality: unspecified laterality Lung location: unspecified part of lung Qualified Code(s): J18.9 - Pneumonia, unspecified organism Sepsis Qualifiers: Sepsis type: sepsis due to unspecified organism Qualified Code(s): A41.9 - Sepsis, unspecified organism - Discharge Dispostion Decision to Admit order: Yes - Referrals - Patient Instructions - Post Discharge Activity
[2017-11-22] MEDS ORDERED: IBUPROFEN 800 MG/8 ML IJ IVPB ONE ×2 (19:04→20:21)
--- NOTE | 2017-11-22 19:04 | PDOC ---
Attending Attestation - Resident Resident Name: DeidraPritesh - ED Attending Attestation I have performed the following: I have examined & evaluated the patient, The case was reviewed & discussed with the resident, I agree w/resident's findings & plan, Exceptions are as noted - HPI HPI: 11/22/17 19:04 Mr Patterson is a 27 yo M w/ pmh of CP, epilepsy, MR, with g-tube, recently admitted for pneumonia, who presents from [facility] after he was noted to have temperature to 102.1 at 4pm today. Given tylenol pr. (+) congestion Pt unable to give any additional historical data - Physicial Exam PE: 11/22/17 19:07 GENERAL: The patient is in no acute distress, awake, non verbal. HEAD: Normal EYES: PERRLA, EOMI, sclera anicteric, conjunctiva clear. ENT: Dry mucous membranes. NECK: Normal range of motion LUNGS: Coarse, rhoncherous breath sounds, coughing intermittently during examination HEART: Tachycardiac, regular ABDOMEN: Soft, nontender EXTREMITIES: Normal range of motion, no edema. NEUROLOGICAL: at baseline SKIN: No rash noted - Medical Decision Making 11/22/17 19:09 27 yo M presenting to the ER due to fevers and congestion (+) cough Unable to given history On examination Tachycardiac rhoncherous breath sounds Will do sepsis orderset IV hydration Portable cxr motrin for fever Abx pending cultures and cxr Anticipate admission EKG: Sinus tachycardia, rate of 123 bpm, right axis deviation, right ventricular hypertrophy, EKG is stable as compared to prior, T waves are upright, no ST depressions or elevations 11/22/17 19:14 11/22/17 21:39 Laboratory Tests 11/22/17 20:30 Sodium 128 L Potassium 3.8 Chloride 94 L Carbon Dioxide 24 Anion Gap 10 BUN 6 L Creatinine 0.3 L D Random Glucose 91 Calcium 8.2 L Creatine Kinase 34 L Troponin I < 0.02 Hyponatremic Calcium low but corrects to 8.5 based on albumin of 3.6 Creatinine nml CXR difficult yto read given rotation ? Retrocardiac opacity Blood cultures sent Will give Vanc/Aztreonam Admit to hospitalist service clinical impression: possible recurrent pneumonia, initial presentation
[2017-11-22 19:58] LABS: BASO % 0.3 % (0-2.0); RDW 13.9 % (11.9-15.9)
[2017-11-22 20:00] LABS: HEMOGLOBIN 14.5 GM/dL (11.7-16.9); LYMPH % 11.6 % (8-40); MCH 31.9 pg (25.7-33.7); MCHC 33.6 g/dl (32.0-35.9); MEAN CELL VOLUME 94.9 fl (80-96); MEAN PLT VOLUME 7.4 fl (7.5-11.1); MONO % 11.4 % (3.8-10.2); NEUT % 76.7 % (42.8-82.8); PLATELET COUNT 223 K/MM3 (134-434); RBC 4.53 M/mm3 (4.00-5.60); WHITE BLOOD COUNT 15.4 K/mm3 (4.0-10.0)
[2017-11-22 20:05] LABS: VENOUS PC02 43.5 mmHg (38-52); VENOUS PH 7.36 (7.32-7.42)
[2017-11-22 20:06] LABS: VENOUS PO2 37.3 mmHg (28-48)
[2017-11-22 20:54] LABS: INR 1.22 (0.82-1.09); PROTHROMBIN TIME (PATIENT) 13.8 SEC (9.7-13.0)
[2017-11-22 20:57] LABS: ACTIVATED PTT 30.2 SECONDS (26.9-34.4)
[2017-11-22] MEDS ORDERED: AZTREONAM 1 GM in DEXTROSE 5%-WATER - 50 ML IVPB ONE (21:07)
[2017-11-22 21:19] LABS: ALBUMIN 3.6 g/dl (3.4-5.0); ANION GAP 10 (8-16); BILIRUBIN,TOTAL 0.4 mg/dL (0.2-1.0); BLOOD UREA NITROGEN 6 mg/dL (7-18); CALCIUM 8.2 mg/dL (8.5-10.1); CHLORIDE 94 mmol/L (98-107); CO2 24 mmol/L (21-32); CREATININE 0.3 mg/dL (0.7-1.3); GLUCOSE,RANDOM 91 mg/dL (74-106); POTASSIUM 3.8 mmol/L (3.5-5.1); SGOT/AST 21 U/L (15-37); SGPT/ALT 37 U/L (12-78); SODIUM 128 mmol/L (136-145); TOT PROT 7.8 g/dl (6.4-8.2)
[2017-11-22 21:21] LABS: ALK PHOS 178 U/L (45-117)
[2017-11-22 22:00] LABS: PLATELET ESTIMATE ADEQUATE
[2017-11-22] MEDS ORDERED: VANCOMYCIN 1 GRAM (PRE-DOCKED) 1,000 MG/250 ML BAG IVPB ONE (23:22)
--- NOTE | 2017-11-22 23:23 | HP ---
CHIEF COMPLAINT: PCP: Al HISTORY OF PRESENT ILLNESS: The patient is a 27 male with h/o CP, functional quadriplegia MR, epilepsy, dysphagia s/p PEG tube placement, scoliosis, and recent PNA in October 2017 who was BIBA from his care facility ([facility]) for fever 101.1F, pulse 135-140 bpm, sat 95%, BP 110/79. He was also coughing and was given Atrovent. He was hospitalized in [place]'s month ago for pneumonia, discharged 10/30/17. The patient himself is nonverbal and unable to provide any history. He has medical allergies to PCN and cephalosporins. Family is not present at bedside. History is taken from medical records. ER course was notable for: (1)WBC 15.4 (2)Na 128 (3)101.3F Recent Travel: No PAST MEDICAL HISTORY: as above PAST SURGICAL HISTORY: GT placement Vagal stimulator, currently deactivated Social History: Smoking: Alcohol: Drugs: Family History: n/a Allergies albuterol Allergy (Verified 10/25/17 14:09) Cephalosporins Allergy (Verified 10/25/17 14:09) latex Allergy (Verified 10/25/17 14:09) Penicillins Allergy (Verified 10/25/17 14:09) shrimp Allergy (Verified 10/25/17 14:09) wool Allergy (Verified 10/25/17 14:09) HOME MEDICATIONS: Home Medications Medication Instructions Recorded Carbamazepine 300 mg GT 1200 09/27/17 Carbamazepine 400 mg GT BID 09/27/17 Clobazam [Onfi] 5 mg GT AM 09/27/17 Clobazam [Onfi] 10 mg GT HS 09/27/17 Diazepam Rectal Gel [Diastat 10 mg RC PRN 09/27/17 Rectal Gel -] LORazepam [Ativan] 1 mg GT DAILY PRN 09/27/17 Rufinamide [Banzel] 1,600 mg GT BID 09/27/17 Topiramate [Topamax -] 400 mg GT HS 09/27/17 Topiramate [Topamax] 300 mg GT AM 09/27/17 Zonisamide [Zonegran] 200 mg GT BID 09/27/17 Zonisamide [Zonegran] 250 mg GT HS 09/27/17 Ipratropium 0.02% Nebulizer 1 amp NEB RQID PRN amp 09/30/17 [Atrovent 0.02% Nebulizer -] Bisacodyl [Dulcolax] 10 mg RC DAILY PRN 10/25/17 Fluticasone Prop 0.05% Nasal 1 - 2 spray NS DAILY 10/25/17 [Flonase -] Nutritional Supplement [Replete] 250 ml GT ASDIR 10/25/17 Polyethylene Glycol 3350 [Miralax 17 gm PO Q2D 10/29/17 119 gm Btl -] Bisacodyl Suppository [Dulcolax 10 mg RC DAILY PRN supp.rect 10/30/17 Suppository -] Clobazam [Onfi -] 10 mg PO HS tablet MDD 10 10/30/17 Enoxaparin [Lovenox -] 40 mg SQ DAILY disp.syrin 10/30/17 Fluticasone Prop 0.05% Nasal 1 spray NS DAILY spray 10/30/17 [Flonase -] Guaifenesin [Robitussin -] 10 ml PO Q6HPO cup 10/30/17 Ipratropium 0.02% Nebulizer 1 amp NEB RQID amp 10/30/17 [Atrovent 0.02% Nebulizer -] Levofloxacin [Levaquin] 500 mg PO DAILY #4 tablet 10/30/17 Lytes/Yerba Agueda [Mouthkote 1 applic MM DAILY applic 10/30/17 Solution -] REVIEW OF SYSTEMS: N/A, the patient is not verbal PHYSICAL EXAMINATION Vital Signs - 24 hr 11/22/17 11/22/17 11/22/17 18:27 22:34 22:41 Temperature 101.3 F H 99.9 F H Pulse Rate 124 H Pulse Rate [ 124 H Right] Respiratory 18 22 Rate Blood Pressure 95/63 Blood Pressure 126/84 [Left Arm] O2 Sat by Pulse 96 94 L Oximetry (%) GENERAL: Awake, alert, non-verbal, HEENT: sclera anicteric, conjunctiva clear, oropharynx clear without exudates, moist mucous membranes LUNGS: course breath sounds bilaterally, rhonchi and crackles bilaterally HEART: tachycardia, regular rhythm, normal s1/s2, no rubs, gallops ABDOMEN: soft, NTND, +bowel sounds, +PEG in LUQ, no skin rash UPPER EXTREMITIES: contracted bilaterally, muscle atrophy LOWER EXTREMITIES: 2+ DP pulses, no edema, muscl ar=trophy, mild redness in knees bilaterally Laboratory Results - last 24 hr 11/22/17 11/22/17 11/22/17 19:15 19:15 19:15 WBC 15.4 H D RBC 4.53 Hgb 14.5 Hct 43.0 MCV 94.9 MCH 31.9 MCHC 33.6 RDW 13.9 Plt Count 223 D MPV 7.4 L D Total Counted 100 Neutrophils % 76.7 Neutrophils % (Manual) 77.0 D Lymphocytes % 11.6 D Lymphocytes % (Manual) 11.0 D Monocytes % 11.4 H Monocytes % (Manual) 11 H Eosinophils % 0.0 D Eosinophils % (Manual) 1.0 Basophils % 0.3 Nucleated RBC % 0 Platelet Estimate Adequate PT with INR Cancelled INR Cancelled PTT (Actin FS) Cancelled VBG pH 7.36 POC VBG pCO2 43.5 POC VBG pO2 37.3 Mixed VBG HCO3 24.0 Sodium Potassium Chloride Carbon Dioxide Anion Gap BUN Creatinine Creat Clearance w eGFR Random Glucose Lactic Acid Calcium Total Bilirubin AST ALT Alkaline Phosphatase Creatine Kinase Troponin I Total Protein Albumin 11/22/17 11/22/17 11/22/17 19:15 19:15 19:45 WBC RBC Hgb Hct MCV MCH MCHC RDW Plt Count MPV Total Counted Neutrophils % Neutrophils % (Manual) Lymphocytes % Lymphocytes % (Manual) Monocytes % Monocytes % (Manual) Eosinophils % Eosinophils % (Manual) Basophils % Nucleated RBC % Platelet Estimate PT with INR INR PTT (Actin FS) VBG pH POC VBG pCO2 POC VBG pO2 Mixed VBG HCO3 Sodium Cancelled Potassium Cancelled Chloride Cancelled Carbon Dioxide Cancelled Anion Gap Cancelled BUN Cancelled Creatinine Cancelled Creat Clearance w eGFR Cancelled Random Glucose Cancelled Lactic Acid Cancelled Calcium Cancelled Total Bilirubin Cancelled AST Cancelled ALT Cancelled Alkaline Phosphatase Cancelled Creatine Kinase Troponin I Cancelled Total Protein Cancelled Albumin Cancelled 11/22/17 11/22/17 11/22/17 20:29 20:30 20:30 WBC RBC Hgb Hct MCV MCH MCHC RDW Plt Count MPV Total Counted Neutrophils % Neutrophils % (Manual) Lymphocytes % Lymphocytes % (Manual) Monocytes % Monocytes % (Manual) Eosinophils % Eosinophils % (Manual) Basophils % Nucleated RBC % Platelet Estimate PT with INR 13.80 H INR 1.22 H PTT (Actin FS) 30.2 VBG pH POC VBG pCO2 POC VBG pO2 Mixed VBG HCO3 Sodium 128 L Potassium 3.8 Chloride 94 L Carbon Dioxide 24 Anion Gap 10 BUN 6 L Creatinine 0.3 L D Creat Clearance w eGFR > 60 Random Glucose 91 Lactic Acid 0.7 Calcium 8.2 L Total Bilirubin 0.4 D AST 21 ALT 37 D Alkaline Phosphatase 178 H D Creatine Kinase 34 L Troponin I < 0.02 Total Protein 7.8 Albumin 3.6 ASSESSMENT/PLAN: The patient is a 27 male with h/o CP, functional quadriplegia MR, epilepsy, dysphagia s/p PEG tube placement, scoliosis, and recent PNA in September 2017 who was BIBA from his care facility ([facility]) for fever 101.1F and cough, congestion. Sepsis 2/2 suspected PNA, possible aspiration -f/u blood and urine cultures -f/u sputum cultures -ID consult, s/p 1x dose Vanc 1gm and Aztreonam 2gm in ED -CXR done in ED, Repeat CXR in AM -Oral suctions Q4H -chest physiotherapy BID -aspiration precautions, HOB elevation -Tylenol PRN for fever Hyponatremia -128, known to have hyponatremia n the past -NS@125cc/hr -will follow up in AM Epilepsy, no seizures in the hospital -c/w home Topamax, carbamazepine, -Ativan PRN for seizure Dysphagia s/p PEG -aspiration precautions, HOB elevated >30 FEN NS@125cc.hr hypoNa noted Tube Feeds to start in AM DVT PPX: cont Lovenox 40 mg DISPO: tele FULL code Problem List - Problem (1) PNA (pneumonia) Code(s): J18.9 - PNEUMONIA, UNSPECIFIED ORGANISM Qualifiers: Pneumonia type: due to unspecified organism Laterality: unspecified laterality Lung location: unspecified part of lung Qualified Code(s): J18.9 - Pneumonia, unspecified organism (2) Sepsis Code(s): A41.9 - SEPSIS, UNSPECIFIED ORGANISM Qualifiers: Sepsis type: sepsis due to unspecified organism Qualified Code(s): A41.9 - Sepsis, unspecified organism (3) Hyponatremia Code(s): E87.1 - HYPO-OSMOLALITY AND HYPONATREMIA (4) Hypoxia Code(s): R09.02 - HYPOXEMIA (5) SOB (shortness of breath) Code(s): R06.02 - SHORTNESS OF BREATH (6) Seizure Code(s): R56.9 - UNSPECIFIED CONVULSIONS (7) Cerebral palsy Code(s): G80.9 - CEREBRAL PALSY, UNSPECIFIED (8) Functional quadriplegia Code(s): R53.2 - FUNCTIONAL QUADRIPLEGIA Visit type - Emergency Visit Emergency Visit: Yes ED Registration Date: 11/22/17 Care time: The patient presented to the Emergency Department on the above date and was hospitalized for further evaluation of their emergent condition. - New Patient This patient is new to me today: Yes Date on this admission: 11/23/17 - Critical Care Critical Care patient: No Hospitalist Screening - Colonoscopy Questionnaire Colonoscopy Questionnaire: Colonoscopy Questionnaire - Patient: 50 - 75 years old and never had a screening colonoscopy: Unknown History of colon or rectal polyps, or CA: Unknown History of IBD, Crohn's disease or UC: Unknown History of abdominal radiation therapy as a child: Unknown - Relative: 1 with colon or rectal CA, or polyps at age 60 or younger: Unknown Colon or rectal CA diagnosed at age 45 or younger: Unknown Multiple relatives with colon or rectal CA: Unknown - Outcome: Screening Result: Negative Screen
[2017-11-22] MEDS ORDERED: VANCOMYCIN 1,000 MG in DEXTROSE 5%-WATER - 250 ML IVPB ONE (23:30)
[2017-11-22] MEDS ORDERED: SODIUM CHLORIDE 1,000 ML IV SCH (23:30)
[2017-11-22] MEDS ORDERED: diazePAM ACUDIAL 5-7.5-10 MG 1 EACH KIT RC SCH (23:45)
--- NOTE | 2017-11-22 23:46 | PN ---
Teaching Attending Note Name of Resident: Sue Giraldo ATTENDING PHYSICIAN STATEMENT I saw and evaluated the patient. I reviewed the resident's note and discussed the case with the resident. I agree with the resident's findings and plan as documented. SUBJECTIVE: OBJECTIVE: ASSESSMENT AND PLAN: patient is admitted for SIRS with sepsis 2/2 HCAP - patient was recently d/c from the hospital for pneumonia had elevated fever and chills today while in the facility and he was brought to the ER for further management plan: admit patient to tele start aztreonam and vancomycin c/w antiseizure medication manage the fever with acetaminophen consult ID for antibiotic stewardship IVF obtain and trend lactic acid if the patient deteriorate then consider MICU admission
[2017-11-22] MEDS ORDERED: IPRATROPIUM BR 0.02% 0.5 MG/2.5 ML VIAL.NEB. NEB PRN (23:59)
[2017-11-22] MEDS ORDERED: BISACODYL 10 MG SUPP.RECT RC PRN (23:59)
[2017-11-22] MEDS ORDERED: LORazepam 1 MG TABLET GT PRN (23:59)
[2017-11-23] MEDS: SODIUM CHLORIDE 1,000 ML IV SCH (00:28)
[2017-11-23] MEDS: guaiFENesin 200 MG/10 ML 10 ML UNIT-DOSE CUPS PO SCH ×3 (00:42→13:58)
[2017-11-23] MEDS ORDERED: ZONISAMIDE 100 MG/10 ML ORAL SUSPENSION GT SCH (06:00)
[2017-11-23] MEDS ORDERED: TOPIRAMATE 100 MG TABLET GT SCH ×3 (07:00→12:32)
[2017-11-23] MEDS ORDERED: cloBAZam 10 MG TABLET PO SCH (07:00)
[2017-11-23 07:01] LABS: BASO % 0.3 % (0-2.0); EOS % 0.2 % (0-4.5); HEMATOCRIT 37.6 % (35.4-49); HEMOGLOBIN 12.7 GM/dL (11.7-16.9); LYMPH % 13.1 % (8-40); MCH 32.6 pg (25.7-33.7); MCHC 33.8 g/dl (32.0-35.9); MEAN CELL VOLUME 96.3 fl (80-96); MEAN PLT VOLUME 6.9 fl (7.5-11.1); MONO % 14.1 % (3.8-10.2); NEUT % 72.3 % (42.8-82.8); PLATELET COUNT 174 K/MM3 (134-434); RDW 13.6 % (11.9-15.9); WHITE BLOOD COUNT 10.7 K/mm3 (4.0-10.0)
[2017-11-23 07:28] LABS: ALBUMIN 3.1 g/dl (3.4-5.0); ALK PHOS 146 U/L (45-117); ANION GAP 7 (8-16); BILIRUBIN,TOTAL 0.5 mg/dL (0.2-1.0); BLOOD UREA NITROGEN 4 mg/dL (7-18); CALCIUM 7.8 mg/dL (8.5-10.1); CHLORIDE 106 mmol/L (98-107); CO2 24 mmol/L (21-32); CREATININE 0.2 mg/dL (0.7-1.3); GLUCOSE,RANDOM 84 mg/dL (74-106); MAGNESIUM 1.9 mg/dL (1.8-2.4); PHOSPHOROUS 2.8 mg/dL (2.5-4.9); POTASSIUM 3.8 mmol/L (3.5-5.1); SGOT/AST 15 U/L (15-37); SGPT/ALT 31 U/L (12-78); SODIUM 137 mmol/L (136-145); TOT PROT 6.7 g/dl (6.4-8.2)
[2017-11-23] MEDS: FLUTICASONE PROP 0.05% 16 GM NASAL SPRAY NS SCH (10:29)
[2017-11-23] MEDS: cloBAZam 10 MG TABLET PO SCH ×2 (10:45→22:57)
[2017-11-23] MEDS: ZONISAMIDE 100 MG/10 ML ORAL SUSPENSION GT SCH ×3 (10:45→23:11)
[2017-11-23] MEDS: ENOXAPARIN NA (PORCINE) 40 MG/0.4 ML DISP.SYRIN SQ SCH (10:45)
[2017-11-23] MEDS: LYTES/YERBA SANTA 240 ML BOTTLE MM SCH (10:45)
[2017-11-23] MEDS: carBAMazepine 200 MG/10 ML UNIT-DOSE CUP GT SCH ×3 (10:45→23:05)
[2017-11-23] MEDS ORDERED: HEMOQUE TEST 1 EACH EACH ONE (11:10)
--- NOTE | 2017-11-23 12:32 | PN ---
Progress Note (short form) - Note Progress Note: diaphoretic and tachypnic Current Medications Generic Name Dose Route Start Last Admin Trade Name Freq PRN Reason Stop Dose Admin Bisacodyl 10 mg 11/22/17 23:59 Dulcolax Suppository - RC DAILY PRN CONSTIPATION Carbamazepine 400 mg 11/23/17 10:00 11/23/17 10:45 Tegretol Oral Suspension - GT 400 mg BID BRAD Administration Carbamazepine 300 mg 11/23/17 12:00 Tegretol Oral Suspension - GT 1200 BRAD Clobazam 10 mg 11/23/17 22:00 Onfi - PO HS BRAD Clobazam 5 mg 11/23/17 10:00 11/23/17 10:45 Onfi - PO 5 mg AM BRAD Administration Diazepam 10 mg 11/22/17 23:45 Diastat Rectal Gel - RC PRN BRAD Enoxaparin Sodium 40 mg 11/23/17 10:00 11/23/17 10:45 Lovenox - SQ 40 mg DAILY BRAD Administration Fluticasone Propionate 1 spray 11/23/17 10:00 11/23/17 10:29 Flonase - NS Not Given DAILY BRAD Guaifenesin 10 ml 11/23/17 00:00 11/23/17 06:01 Robitussin - PO Not Given Q6HPO BRAD Sodium Chloride 1,000 mls @ 125 mls/hr 11/22/17 23:45 11/23/17 00:28 Normal Saline - IV 125 mls/hr ASDIR BRAD Administration Ipratropium [place] 1 amp 11/22/17 23:59 Atrovent 0.02% Nebulizer - NEB RQID PRN WHEEZING Lorazepam 1 mg 11/22/17 23:59 Ativan - GT DAILY PRN seizure Non-Formulary Medication 1,600 mg 11/23/17 10:00 Rufinamide [Banzel] GT BID BRAD Saliva Substitute 1 applic 11/23/17 10:00 11/23/17 10:45 Mouthkote Solution - MM 1 applic DAILY BRAD Administration Topiramate 400 mg 11/23/17 22:00 Topamax - GT HS BRAD Topiramate 300 mg 11/23/17 10:00 11/23/17 10:45 Topamax - GT 300 mg AM BRAD Administration Zonisamide 200 mg 11/23/17 10:00 11/23/17 10:45 Zonisamide GT 200 mg TID BRAD Administration Last Vital Signs Temp Pulse Resp BP Pulse Ox 101.0 F H 120 H 22 117/80 98 11/23/17 11:48 11/23/17 10:45 11/23/17 10:45 11/23/17 10:45 11/23/17 10:45 General diaphoretic tachypnic, flushed face CV S1 S2 tachycardic Lungs coarse breath sounds diffusely abdomen soft NT/ND +PEG in LUQ with slight erythema surrounding PEG no drainage Extremities contracted B/L LE CBCD WBC 10.7 K/mm3 (4.0-10.0) H D 11/23/17 06:30 RBC 3.90 M/mm3 (4.00-5.60) L 11/23/17 06:30 Hgb 12.7 GM/dL (11.7-16.9) D 11/23/17 06:30 Hct 37.6 % (35.4-49) 11/23/17 06:30 MCV 96.3 fl (80-96) H 11/23/17 06:30 MCHC 33.8 g/dl (32.0-35.9) 11/23/17 06:30 RDW 13.6 % (11.9-15.9) 11/23/17 06:30 Plt Count 174 K/MM3 (134-434) D 11/23/17 06:30 MPV 6.9 fl (7.5-11.1) L 11/23/17 06:30 CMP Sodium 137 mmol/L (136-145) 11/23/17 06:30 Potassium 3.8 mmol/L (3.5-5.1) 11/23/17 06:30 Chloride 106 mmol/L (98-107) D 11/23/17 06:30 Carbon Dioxide 24 mmol/L (21-32) 11/23/17 06:30 Anion Gap 7 (8-16) L 11/23/17 06:30 BUN 4 mg/dL (7-18) L D 11/23/17 06:30 Creatinine 0.2 mg/dL (0.7-1.3) L D 11/23/17 06:30 Creat Clearance w eGFR > 60 (>60) 11/23/17 06:30 Random Glucose 84 mg/dL (74-106) 11/23/17 06:30 Calcium 7.8 mg/dL (8.5-10.1) L 11/23/17 06:30 Total Bilirubin 0.5 mg/dL (0.2-1.0) D 11/23/17 06:30 AST 15 U/L (15-37) D 11/23/17 06:30 ALT 31 U/L (12-78) 11/23/17 06:30 Alkaline Phosphatase 146 U/L (45-117) H 11/23/17 06:30 Total Protein 6.7 g/dl (6.4-8.2) 11/23/17 06:30 Albumin 3.1 g/dl (3.4-5.0) L 11/23/17 06:30 CARDIAC ENZYMES Creatine Kinase 34 IU/L (39-308) L 11/22/17 20:30 Troponin I < 0.02 ng/ml (0.00-0.05) 11/22/17 20:30 Microbiology 11/23/17 01:00 Influenza Types A,B Antigen - Final Nasopharyngeal Swab - Final A/P 27yo M with PMH CP, functional quadriplegia, MR, dysphagia s/p PEG placement presented to the ER with fever, tachycardia and tachpnea and found to be septic due to PNA 1. Sepsis due to PNA- Tm 101.3. remains tachycardic. CXR showing retrocardiac infiltrate. hx of multiple allergies. started on vanco/Aztreonam for now. cont IVF. cardica monitoring for the sinus tachycardia until resolves. 2. Hyponatremia- due to dehydration. resolved 3. CP 4. Functional quadriplegia 5. Dysphagia s/p PEG- will re-start tube feeds. aspiration precautions. elevate head of bed 6. epilepsy- no seizure activity reported. awaiting for Astrid to be brought over from [place] as not formulary here. Father notified facility. cont home meds 7. DVT ppx- lovenox 8. spoke with father present at bedside. explained to him plan for care at this time. verbalized understanding and agreement with plan
[2017-11-23] MEDS ORDERED: ACETAMINOPHEN INJECTION 100 ML IVPB ONE (13:01)
[2017-11-23] MEDS ORDERED: AZTREONAM 1 GM in DEXTROSE 5%-WATER - 50 ML IVPB SCH ×2 (13:30→14:00)
[2017-11-23] MEDS ORDERED: VANCOMYCIN 1 GRAM (PRE-DOCKED) 1,000 MG/250 ML BAG IVPB ONE (14:05)
[2017-11-23] MEDS ORDERED: ACETAMINOPHEN 1000 MG/100 ML VIAL (NON FORMULARY) IVPB ONE (15:02)
[2017-11-23] MEDS: VANCOMYCIN 1,000 MG in DEXTROSE 5%-WATER - 250 ML IVPB ONE ×2 (15:09→15:32)
[2017-11-23] MEDS: guaiFENesin 200 MG/10 ML 10 ML UNIT-DOSE CUPS GT SCH ×3 (15:10→23:12)
[2017-11-23] MEDS ORDERED: VANCOMYCIN 1,000 MG in DEXTROSE 5%-WATER - 250 ML IVPB SCH (15:15)
--- NOTE | 2017-11-23 15:16 | PN ---
Progress Note (short form) - Note Progress Note: ID Consult dictated Recurrent pneumonia PCN/CP allergies CP/MR Pending c/s empiric vancomycin/ aztreonam Discussed with father at bedside
[2017-11-23] MEDS: RUFINAMIDE GT SCH ×2 (16:55→22:58)
[2017-11-23] MEDS: VANCOMYCIN 1 GM PREMIX - 1 GM/200 ML BAG IVPB SCH (16:59)
[2017-11-23] MEDS: AZTREONAM 1 GM in DEXTROSE 5%-WATER - 50 ML IVPB SCH (20:32)
[2017-11-23] MEDS: ZONISAMIDE 100 MG/10 ML ORAL SUSPENSION PO SCH (23:10)
[2017-11-23] MEDS: TOPIRAMATE 200 MG TABLET (FP) GT SCH (23:14)
[2017-11-24] MEDS: AZTREONAM 1 GM in DEXTROSE 5%-WATER - 50 ML IVPB SCH ×3 (01:10→17:25)
[2017-11-24] MEDS ORDERED: PT OWN MED DRAWER 7, Y5N ONE ×6 (05:58→22:50)
[2017-11-24] MEDS: VANCOMYCIN 1 GM PREMIX - 1 GM/200 ML BAG IVPB SCH ×2 (06:03→18:06)
[2017-11-24] MEDS: ACETAMINOPHEN 650 MG/20.3 ML ORAL SOLUTION (CUPS) GT PRN ×2 (06:08→23:19)
[2017-11-24] MEDS: SODIUM CHLORIDE 1,000 ML IV SCH ×2 (06:08→12:21)
[2017-11-24] MEDS: ZONISAMIDE 100 MG/10 ML ORAL SUSPENSION GT SCH ×3 (06:09→22:47)
[2017-11-24] MEDS: guaiFENesin 200 MG/10 ML 10 ML UNIT-DOSE CUPS GT SCH ×4 (06:09→23:17)
[2017-11-24] MEDS: cloBAZam 10 MG TABLET PO SCH ×2 (06:10→22:47)
[2017-11-24 06:52] LABS: BASO % 0.4 % (0-2.0); EOS % 0.7 % (0-4.5); HEMATOCRIT 36.5 % (35.4-49); HEMOGLOBIN 12.1 GM/dL (11.7-16.9); LYMPH % 17.2 % (8-40); MCH 32.5 pg (25.7-33.7); MCHC 33.3 g/dl (32.0-35.9); MEAN CELL VOLUME 97.6 fl (80-96); MEAN PLT VOLUME 6.8 fl (7.5-11.1); MONO % 9.2 % (3.8-10.2); NEUT % 72.5 % (42.8-82.8); PLATELET COUNT 167 K/MM3 (134-434); RBC 3.74 M/mm3 (4.00-5.60); RDW 13.9 % (11.9-15.9); WHITE BLOOD COUNT 9.5 K/mm3 (4.0-10.0)
[2017-11-24 07:25] LABS: ANION GAP 10 (8-16); BLOOD UREA NITROGEN 3 mg/dL (7-18); CALCIUM 7.9 mg/dL (8.5-10.1); CHLORIDE 104 mmol/L (98-107); CO2 20 mmol/L (21-32); GLUCOSE,RANDOM 73 mg/dL (74-106); POTASSIUM 3.8 mmol/L (3.5-5.1); SODIUM 134 mmol/L (136-145)
[2017-11-24 07:27] LABS: CREATININE 0.2 mg/dL (0.7-1.3)
[2017-11-24] MEDS: carBAMazepine 200 MG/10 ML UNIT-DOSE CUP GT SCH ×3 (09:48→22:48)
[2017-11-24] MEDS: RUFINAMIDE GT SCH ×2 (09:48→22:46)
[2017-11-24] MEDS: ENOXAPARIN NA (PORCINE) 40 MG/0.4 ML DISP.SYRIN SQ SCH (09:49)
[2017-11-24] MEDS: LYTES/YERBA SANTA 240 ML BOTTLE MM SCH (09:52)
[2017-11-24] MEDS: FLUTICASONE PROP 0.05% 16 GM NASAL SPRAY NS SCH (09:53)
--- NOTE | 2017-11-24 11:14 | PN ---
Progress Note (short form) - Note Progress Note: resting comfortable Current Medications Generic Name Dose Route Start Last Admin Trade Name Freq PRN Reason Stop Dose Admin Acetaminophen 650 mg 11/23/17 13:32 11/24/17 06:08 Tylenol Oral Solution - GT 650 mg Q6H PRN Administration FEVER Bisacodyl 10 mg 11/22/17 23:59 Dulcolax Suppository - RC DAILY PRN CONSTIPATION Carbamazepine 400 mg 11/23/17 10:00 11/24/17 09:48 Tegretol Oral Suspension - GT 400 mg BID BRAD Administration Carbamazepine 300 mg 11/23/17 12:00 11/23/17 12:58 Tegretol Oral Suspension - GT 300 mg 1200 BRAD Administration Clobazam 10 mg 11/23/17 22:00 11/23/17 22:57 Onfi - PO 10 mg HS BRAD Administration Clobazam 5 mg 11/23/17 10:00 11/24/17 06:10 Onfi - PO 5 mg AM BRAD Administration Diazepam 10 mg 11/22/17 23:45 Diastat Rectal Gel - RC PRN BRAD Enoxaparin Sodium 40 mg 11/23/17 10:00 11/24/17 09:49 Lovenox - SQ 40 mg DAILY BRAD Administration Fluticasone Propionate 1 spray 11/23/17 10:00 11/24/17 09:53 Flonase - NS Not Given DAILY BRAD Guaifenesin 10 ml 11/23/17 13:30 11/24/17 06:09 Robitussin - GT 10 ml Q6HPO BRAD Administration Sodium Chloride 1,000 mls @ 125 mls/hr 11/22/17 23:45 11/24/17 06:08 Normal Saline - IV 125 mls/hr ASDIR BRAD Administration Aztreonam 1 gm/ Dextrose 50 mls @ 100 mls/hr 11/23/17 18:00 11/24/17 09:49 IVPB 100 mls/hr Q8H-IV BRAD Administration Protocol Vancomycin HCl 1 gm in 200 mls @ 133.333 mls/hr 11/23/17 16:15 11/24/17 06:03 Vancomycin 1 Gm Premix - IVPB 133.333 mls/hr Q12H BRAD Administration Protocol Ipratropium [place] 1 amp 11/22/17 23:59 Atrovent 0.02% Nebulizer - NEB RQID PRN WHEEZING Lidocaine/Aluminum/Magnesium/Simeth 5 ml 11/24/17 12:00 Magic Mouthwash *Sjr Formula* - MM Q6HPO BRAD Lorazepam 1 mg 11/22/17 23:59 Ativan - GT DAILY PRN seizure Multi-Ingredient Ointment 1 applic 11/24/17 10:00 Zinc Oxide TP BID BRAD Non-Formulary Medication 1,600 mg 11/23/17 16:00 11/24/17 09:48 Rufinamide [Banzel] GT 1,600 mg BID BRAD Administration Saliva Substitute 1 applic 11/23/17 10:00 11/24/17 09:52 Mouthkote Solution - MM 1 applic DAILY BRAD Administration Topiramate 400 mg 11/23/17 22:00 11/23/17 23:14 Topamax - GT 400 mg HS BRAD Administration Topiramate 200 mg 11/23/17 12:32 11/24/17 06:11 Topamax - GT 200 mg AM BRAD Administration Zonisamide 200 mg 11/23/17 10:00 11/24/17 06:09 Zonisamide GT 200 mg TID BRAD Administration Zonisamide 50 mg 11/23/17 22:00 11/23/17 23:10 Zonisamide PO 50 mg HS BRAD Administration Last Vital Signs Temp Pulse Resp BP Pulse Ox 100.4 F H 106 H 18 117/75 94 L 11/24/17 06:00 11/24/17 10:15 11/24/17 10:15 11/24/17 10:15 11/23/17 21:00 General NAD CV S1 S2 tachycardic Lungs CTA B/L anteriorly. reduced L base abdomen soft NT/ND +PEG in LUQ with slight erythema surrounding PEG no drainage Extremities contracted B/L LE, no edema CBCD WBC 9.5 K/mm3 (4.0-10.0) 11/24/17 05:30 RBC 3.74 M/mm3 (4.00-5.60) L 11/24/17 05:30 Hgb 12.1 GM/dL (11.7-16.9) 11/24/17 05:30 Hct 36.5 % (35.4-49) 11/24/17 05:30 MCV 97.6 fl (80-96) H 11/24/17 05:30 MCHC 33.3 g/dl (32.0-35.9) 11/24/17 05:30 RDW 13.9 % (11.9-15.9) 11/24/17 05:30 Plt Count 167 K/MM3 (134-434) 11/24/17 05:30 MPV 6.8 fl (7.5-11.1) L 11/24/17 05:30 CMP Sodium 134 mmol/L (136-145) L 11/24/17 05:30 Potassium 3.8 mmol/L (3.5-5.1) 11/24/17 05:30 Chloride 104 mmol/L (98-107) 11/24/17 05:30 Carbon Dioxide 20 mmol/L (21-32) L 11/24/17 05:30 Anion Gap 10 (8-16) 11/24/17 05:30 BUN 3 mg/dL (7-18) L D 11/24/17 05:30 Creatinine 0.2 mg/dL (0.7-1.3) L 11/24/17 05:30 Creat Clearance w eGFR > 60 (>60) 11/23/17 06:30 Calcium 7.9 mg/dL (8.5-10.1) L 11/24/17 05:30 Total Bilirubin 0.5 mg/dL (0.2-1.0) D 11/23/17 06:30 AST 15 U/L (15-37) D 11/23/17 06:30 ALT 31 U/L (12-78) 11/23/17 06:30 Alkaline Phosphatase 146 U/L (45-117) H 11/23/17 06:30 Total Protein 6.7 g/dl (6.4-8.2) 11/23/17 06:30 Albumin 3.1 g/dl (3.4-5.0) L 11/23/17 06:30 Microbiology 11/23/17 01:00 Sputum Culture - Preliminary Sputum - Expectorated Beta Hem Streptococcus Group G 11/22/17 22:20 Urine Culture - Preliminary Urine - Urine Clean Catch Group D Strep Or Entero Coccus 11/22/17 19:15 Blood Culture - Preliminary Blood - Peripheral Venous NO GROWTH OBTAINED AFTER 24 HOURS, INCUBATION TO CONTINUE FOR 4 DAYS. 11/22/17 19:15 Blood Culture - Preliminary Blood - Peripheral Venous NO GROWTH OBTAINED AFTER 24 HOURS, INCUBATION TO CONTINUE FOR 4 DAYS. A/P 27yo M with PMH CP, functional quadriplegia, MR, dysphagia s/p PEG placement presented to the ER with fever, tachycardia and tachpnea and found to be septic due to PNA 1. Sepsis due to PNA- Tm 101. and low grade this AM. pt is no longer tachypnic and diaphoretic. leukocytosis resolved. SCx with pending organism. reepat CXR. check vanco trough before 4th dose. will reduce IVF to 100cc/H until no longer tacyhcardic. cont vanco/aztreonam day 2. ID on board. f/u cx 3. 2. Hyponatremia- due to dehydration. resolved 3. CP 4. Functional quadriplegia 5. Dysphagia s/p PEG- was on bolus at [place]. not able to do that here. awaiting nutrition recommendations for continuous feeds.aspiration precautions. elevate head of bed 6. epilepsy- no seizure activity reported. cont home medication. 7. DVT ppx- lovenox Visit type - Emergency Visit Emergency Visit: Yes ED Registration Date: 11/22/17 Care time: The patient presented to the Emergency Department on the above date and was hospitalized for further evaluation of their emergent condition. - New Patient This patient is new to me today: No - Critical Care Critical Care patient: No - Discharge Referral Referred to [facility] Med [facility] No
[2017-11-24] MEDS: ZINC OXIDE 20% TOPICAL OINTMENT 30 GM TUBE TP SCH ×2 (12:21→22:58)
[2017-11-24] MEDS: MAG HYDROX/ALH/SMC/DPHA/LIDO 240 ML MOUTHWASH MM SCH ×3 (12:21→23:16)
--- NOTE | 2017-11-24 20:11 | PN ---
Progress Note, Physician History of Present Illness: Awake, non verbal. Breathing less labored Still congested Low grade fever WBC improved - Current Medication List Current Medications: Active Medications Acetaminophen (Tylenol Oral Solution -) 650 mg GT Q6H PRN PRN Reason: FEVER Last Admin: 11/24/17 06:08 Dose: 650 mg Bisacodyl (Dulcolax Suppository -) 10 mg RC DAILY PRN PRN Reason: CONSTIPATION Carbamazepine (Tegretol Oral Suspension -) 400 mg GT BID BRAD Last Admin: 11/24/17 09:48 Dose: 400 mg Carbamazepine (Tegretol Oral Suspension -) 300 mg GT 1200 BRAD Last Admin: 11/24/17 12:57 Dose: 300 mg Clobazam (Onfi -) 10 mg PO HS BRAD Last Admin: 11/23/17 22:57 Dose: 10 mg Clobazam (Onfi -) 5 mg PO AM [facility] Last Admin: 11/24/17 06:10 Dose: 5 mg Diazepam (Diastat Rectal Gel -) 10 mg RC PRN BRAD Enoxaparin Sodium (Lovenox -) 40 mg SQ DAILY BRAD Last Admin: 11/24/17 09:49 Dose: 40 mg Fluticasone Propionate (Flonase -) 1 spray NS DAILY [facility] Last Admin: 11/24/17 09:53 Dose: Not Given Guaifenesin (Robitussin -) 10 ml GT Q6HPO [facility] Last Admin: 11/24/17 17:26 Dose: 10 ml Aztreonam 1 gm/ Dextrose 50 mls @ 100 mls/hr IVPB Q8H-IV BRAD; Protocol Last Admin: 11/24/17 17:25 Dose: 100 mls/hr Vancomycin HCl (Vancomycin 1 Gm Premix -) 1 gm in 200 mls @ 133.333 mls/hr IVPB Q12H BRAD; Protocol Last Admin: 11/24/17 18:06 Dose: 133.333 mls/hr Sodium Chloride (Normal Saline -) 1,000 mls @ 100 mls/hr IV ASDIR BRAD Last Admin: 11/24/17 12:21 Dose: 100 mls/hr Ipratropium [place] (Atrovent 0.02% Nebulizer -) 1 amp NEB RQID PRN PRN Reason: WHEEZING Lidocaine/Aluminum/Magnesium/Simeth (Magic Mouthwash *Sjr Formula* -) 5 ml MM Q6HPO [facility] Last Admin: 11/24/17 17:26 Dose: 5 ml Lorazepam (Ativan -) 1 mg GT DAILY PRN PRN Reason: seizure Multi-Ingredient Ointment (Zinc Oxide) 1 applic TP BID [facility] Last Admin: 11/24/17 12:21 Dose: 1 applic Non-Formulary Medication (Rufinamide [Banzel]) 1,600 mg GT BID [facility] Last Admin: 11/24/17 09:48 Dose: 1,600 mg Saliva Substitute (Mouthkote Solution -) 1 applic MM DAILY [facility] Last Admin: 11/24/17 09:52 Dose: 1 applic Topiramate (Topamax -) 400 mg GT HS [facility] Last Admin: 11/23/17 23:14 Dose: 400 mg Topiramate (Topamax -) 200 mg GT AM [facility] Last Admin: 11/24/17 06:11 Dose: 200 mg Zonisamide (Zonisamide) 200 mg GT TID [facility] Last Admin: 11/24/17 14:57 Dose: 200 mg Zonisamide (Zonisamide) 50 mg PO HS [facility] Last Admin: 11/23/17 23:10 Dose: 50 mg - Objective Vital Signs: Vital Signs Temperature 98.2 F 11/24/17 16:00 Pulse Rate 93 H 11/24/17 12:55 Respiratory Rate 18 11/24/17 12:55 Blood Pressure 109/74 11/24/17 12:55 O2 Sat by Pulse Oximetry (%) 94 L 11/24/17 10:00 Constitutional: Yes: No Distress Cardiovascular: Yes: Regular Rate and Rhythm, S1, S2 Respiratory: Yes: Rhonchi Gastrointestinal: Yes: Normal Bowel Sounds, Soft Labs: CBC, BMP 11/24/17 05:30 11/24/17 05:30 INR, PTT INR 1.22 (0.82-1.09) H 11/22/17 20:30 Assessment/Plan Probable aspiration pneumonia Possible sepsis secondary to pneumonia PCN/ CP allergies CP/MR Continue empiric vancomycin/ aztreonam
--- NOTE | 2017-11-24 22:24 | EKG ---
Test Reason : Blood Pressure : / mmHG Vent. Rate : 123 BPM Atrial Rate : 123 BPM P-R Int : 142 ms QRS Dur : 090 ms QT Int : 318 ms P-R-T Axes : 057 142 047 degrees QTc Int : 455 ms SINUS TACHYCARDIA BIATRIAL ENLARGEMENT RIGHT AXIS DEVIATION PULMONARY DISEASE PATTERN RIGHT VENTRICULAR HYPERTROPHY ABOVE FINDINGS CONSISENT WITH POSSIBLE ACUTE RV STRAIN ABNORMAL ECG WHEN COMPARED WITH ECG OF 01-NOV-2017 14:04, NO SIGNIFICANT CHANGE WAS FOUND Confirmed by SUNNY MANRIQUEZ MD ([id number]) on 11/24/2017 10:24:03 PM Referred By: Confirmed By:SUNNY MANRIQUEZ MD
[2017-11-24] MEDS: ZONISAMIDE 100 MG/10 ML ORAL SUSPENSION PO SCH (22:48)
[2017-11-24] MEDS: TOPIRAMATE 200 MG TABLET (FP) GT SCH (22:50)
--- NOTE | 2017-11-24 23:19 | CONS ---
DATE OF CONSULTATION: 11/23/2017 The patient is a 27-year-old male with a history of cerebral palsy and mental retardation evaluated for fever. History was obtained from the chart as well as the patient's father who was present at the time of the examination in the emergency room. According to the notes, the patient developed fever to 102 at the longterm, associated with increasing pulmonary congestion, tracheal secretions, and tachycardia to 135 beats per minute. He was transferred to the emergency room where the patient was febrile to 101.3 and was noted to have an elevated white blood cell count. Cultures were obtained. He was empirically treated with vancomycin and Azactam. The patient cannot give any additional history. Father reports he has been having increased respiratory secretions while at the nursing facility. PAST MEDICAL HISTORY: Positive for cerebral palsy and mental retardation, seizure disorder, and history of aspiration pneumonia. PAST SURGICAL HISTORY: Status post vagal stimulator, feeding gastrostomy. ALLERGIES: PENICILLIN, CEPHALOSPORINS, AND LATEX. Nature of the allergy is not known. MEDICATIONS: At the present time include vancomycin, Azactam, Tylenol, Lovenox, Tegretol, Topamax, Ativan. REVIEW OF SYSTEMS: Neurologic: Positive for cerebral palsy, mental retardation, seizure disorder. Cardiac: Negative for chest pain or palpitations. Respiratory: As per HPI. Gastrointestinal: Negative vomiting or diarrhea. Positive feeding gastrostomy. Genitourinary: Negative for urinary tract infection. LABORATORY DATA: White blood cell count on admission 15.4, presently 10.7, hematocrit 37.6, platelets 174. BUN 3, creatinine 0.2, total bilirubin 0.5, alkaline phosphatase 146, AST 15. Urinalysis pending. Chest x-ray shows an extremely rotated film with an indwelling spinal hardware, increased heart size, increased markings noted to the right base. PHYSICAL EXAMINATION: General: He is awake, congested, dyspneic at rest on nasal cannula. Vital Signs: Temperature 98.7, blood pressure 136/63, pulse 114 and regular, respirations 24 per minute. HEENT: Sclerae anicteric. [place] complexion. Positive tracheal secretions. Heart: S1, S2. Lungs: Bilateral rhonchi. Abdomen: Obese. Feeding gastrostomy tube is in place. No erythema or drainage at the site. Extremities: 1+ edema. IMPRESSION: 1. Probable recurrent aspiration pneumonia. 2. Cerebral palsy and mental retardation. 3. PENICILLIN AND CEPHALOSPORIN ALLERGIES. PLAN: Pending sepsis workup, empiric antibiotic coverage in this patient with multiple antibiotic allergies with vancomycin and Azactam. Further recommendations pending clinical course and cultures. Case discussed with patient's father, present at the time of the examination. Thank you for the kind referral. ALFRED WALLS M.D. SHAILA/[id number]
[2017-11-25] MEDS: AZTREONAM 1 GM in DEXTROSE 5%-WATER - 50 ML IVPB SCH ×3 (01:05→17:02)
[2017-11-25] MEDS: VANCOMYCIN 1 GM PREMIX - 1 GM/200 ML BAG IVPB SCH (04:52)
[2017-11-25] MEDS ORDERED: PT OWN MED DRAWER 7, Y5N ONE ×6 (06:52→21:12)
[2017-11-25] MEDS: MAG HYDROX/ALH/SMC/DPHA/LIDO 240 ML MOUTHWASH MM SCH ×4 (06:53→23:35)
[2017-11-25] MEDS: guaiFENesin 200 MG/10 ML 10 ML UNIT-DOSE CUPS GT SCH ×4 (06:53→23:35)
[2017-11-25] MEDS: ZONISAMIDE 100 MG/10 ML ORAL SUSPENSION GT SCH ×3 (06:54→21:27)
[2017-11-25] MEDS: cloBAZam 10 MG TABLET PO SCH ×2 (06:55→21:27)
[2017-11-25] MEDS: TOPIRAMATE 200 MG TABLET (FP) GT SCH ×2 (06:56→21:27)
[2017-11-25 07:13] LABS: BASO % 0.4 % (0-2.0); EOS % 1.2 % (0-4.5); HEMATOCRIT 37.2 % (35.4-49); HEMOGLOBIN 12.6 GM/dL (11.7-16.9); LYMPH % 25.5 % (8-40); MCH 32.6 pg (25.7-33.7); MCHC 33.9 g/dl (32.0-35.9); MEAN CELL VOLUME 96.1 fl (80-96); MEAN PLT VOLUME 6.7 fl (7.5-11.1); MONO % 9.1 % (3.8-10.2); NEUT % 63.8 % (42.8-82.8); PLATELET COUNT 168 K/MM3 (134-434); RBC 3.87 M/mm3 (4.00-5.60); RDW 13.8 % (11.9-15.9); WHITE BLOOD COUNT 8.7 K/mm3 (4.0-10.0)
[2017-11-25 07:18] LABS: ANION GAP 6 (8-16); BLOOD UREA NITROGEN 3 mg/dL (7-18); CALCIUM 7.7 mg/dL (8.5-10.1); CHLORIDE 102 mmol/L (98-107); CO2 27 mmol/L (21-32); CREATININE 0.3 mg/dL (0.7-1.3); GLUCOSE,RANDOM 114 mg/dL (74-106); POTASSIUM 3.1 mmol/L (3.5-5.1); SODIUM 135 mmol/L (136-145)
[2017-11-25] MEDS: LYTES/YERBA SANTA 240 ML BOTTLE MM SCH (10:05)
[2017-11-25] MEDS: RUFINAMIDE GT SCH ×2 (10:06→21:27)
[2017-11-25] MEDS: FLUTICASONE PROP 0.05% 16 GM NASAL SPRAY NS SCH (10:24)
[2017-11-25] MEDS: ENOXAPARIN NA (PORCINE) 40 MG/0.4 ML DISP.SYRIN SQ SCH (10:25)
[2017-11-25] MEDS: carBAMazepine 200 MG/10 ML UNIT-DOSE CUP GT SCH ×3 (10:28→21:28)
[2017-11-25] MEDS: ZINC OXIDE 20% TOPICAL OINTMENT 30 GM TUBE TP SCH ×2 (10:29→21:28)
[2017-11-25] MEDS: SODIUM CHLORIDE 1,000 ML IV SCH (11:08)
--- NOTE | 2017-11-25 11:09 | PN ---
Progress Note, Physician History of Present Illness: Awake, non verbal. Appears much more comfortable on nasal cannula O2 Less congested Low grade fever overnight WBC improved - Current Medication List Current Medications: Active Medications Acetaminophen (Tylenol Oral Solution -) 650 mg GT Q6H PRN PRN Reason: FEVER Last Admin: 11/24/17 23:19 Dose: 650 mg Bisacodyl (Dulcolax Suppository -) 10 mg RC DAILY PRN PRN Reason: CONSTIPATION Carbamazepine (Tegretol Oral Suspension -) 400 mg GT BID [facility] Last Admin: 11/25/17 10:28 Dose: 400 mg Carbamazepine (Tegretol Oral Suspension -) 300 mg GT 1200 BRAD Last Admin: 11/24/17 12:57 Dose: 300 mg Clobazam (Onfi -) 10 mg PO HS [facility] Last Admin: 11/24/17 22:47 Dose: 10 mg Clobazam (Onfi -) 5 mg PO AM [facility] Last Admin: 11/25/17 06:55 Dose: 5 mg Diazepam (Diastat Rectal Gel -) 10 mg RC PRN BRAD Enoxaparin Sodium (Lovenox -) 40 mg SQ DAILY [facility] Last Admin: 11/25/17 10:25 Dose: 40 mg Fluticasone Propionate (Flonase -) 1 spray NS DAILY [facility] Last Admin: 11/25/17 10:24 Dose: 1 spray Guaifenesin (Robitussin -) 10 ml GT Q6HPO BRAD Last Admin: 11/25/17 06:53 Dose: 10 ml Aztreonam 1 gm/ Dextrose 50 mls @ 100 mls/hr IVPB Q8H-IV BRAD; Protocol Last Admin: 11/25/17 10:24 Dose: 100 mls/hr Vancomycin HCl (Vancomycin 1 Gm Premix -) 1 gm in 200 mls @ 133.333 mls/hr IVPB Q12H BRAD; Protocol Last Admin: 11/25/17 04:52 Dose: 133.333 mls/hr Sodium Chloride (Normal Saline -) 1,000 mls @ 100 mls/hr IV ASDIR BRAD Last Admin: 11/24/17 12:21 Dose: 100 mls/hr Ipratropium Lane (Atrovent 0.02% Nebulizer -) 1 amp NEB RQID PRN PRN Reason: WHEEZING Lidocaine/Aluminum/Magnesium/Simeth (Magic Mouthwash *Sjr Formula* -) 5 ml MM Q6HPO [facility] Last Admin: 11/25/17 06:53 Dose: 5 ml Lorazepam (Ativan -) 1 mg GT DAILY PRN PRN Reason: seizure Multi-Ingredient Ointment (Zinc Oxide) 1 applic TP BID [facility] Last Admin: 11/25/17 10:29 Dose: 1 applic Non-Formulary Medication (Rufinamide [Banzel]) 1,600 mg GT BID [facility] Last Admin: 11/25/17 10:06 Dose: 1,600 mg Saliva Substitute (Mouthkote Solution -) 1 applic MM DAILY [facility] Last Admin: 11/24/17 09:52 Dose: 1 applic Topiramate (Topamax -) 400 mg GT HS [facility] Last Admin: 11/24/17 22:50 Dose: 400 mg Topiramate (Topamax -) 200 mg GT AM [facility] Last Admin: 11/25/17 06:56 Dose: 200 mg Zonisamide (Zonisamide) 200 mg GT TID [facility] Last Admin: 11/25/17 06:54 Dose: 200 mg Zonisamide (Zonisamide) 50 mg PO [facility] Last Admin: 11/24/17 22:48 Dose: 50 mg - Objective Vital Signs: Vital Signs Temperature 98.3 F 11/25/17 09:00 Pulse Rate 95 H 11/25/17 05:38 Respiratory Rate 18 11/25/17 05:38 Blood Pressure 130/77 11/25/17 05:38 O2 Sat by Pulse Oximetry (%) 95 11/24/17 21:00 Constitutional: Yes: No Distress Cardiovascular: Yes: Regular Rate and Rhythm, S1, S2 Respiratory: Yes: Rhonchi Gastrointestinal: Yes: Normal Bowel Sounds, Soft. No: Tenderness Edema: Yes Edema: LLE: 1+, RLE: 1+ Labs: CBC, BMP 11/25/17 06:37 11/25/17 06:37 INR, PTT INR 1.22 (0.82-1.09) H 11/22/17 20:30 Assessment/Plan Probable aspiration pneumonia improved Possible sepsis secondary to pneumonia PCN/ CP allergies CP/MR Continue empiric vancomycin/ aztreonam day #4
--- NOTE | 2017-11-25 11:56 | PN ---
Teaching Attending Note Name of Resident: Raciel Woodson ATTENDING PHYSICIAN STATEMENT I saw and evaluated the patient. I reviewed the resident's note and discussed the case with the resident. I agree with the resident's findings and plan as documented. SUBJECTIVE:resting comfortable OBJECTIVE: Last Vital Signs Temp Pulse Resp BP Pulse Ox 98.3 F 95 H 18 130/77 95 11/25/17 09:00 11/25/17 05:38 11/25/17 05:38 11/25/17 05:38 11/24/17 21:00 Intake & Output 11/22/17 11/23/17 11/24/17 11/25/17 23:59 23:59 23:59 23:59 Intake Total 925 1225 1600 Balance 925 1225 1600 Weight 140 lb 140 lb 136 lb 9.6 oz General NAD Lungs CTA B/L anteriorly Extremities contracted extremities ASSESSMENT AND PLAN: 27yo M with PMH CP, functional quadriplegia, MR, dysphagia s/p PEG placement presented to the ER with fever, tachycardia and tachpnea and found to be septic due to PNA 1. Sepsis due to PNA- Tm 100.6. clinically improved. will increase vanco level to 1.25g BID and recheck prior to 4th dose. cont Aztreonam. will d/c IVF. ID on board. f/u cx. 2. Hyponatremia- due to dehydration. resolved 3. CP 4. Functional quadriplegia 5. Dysphagia s/p PEG- restarted on replete (TF from [place]). aspiration precautions. elevate head of bed 6. epilepsy- no seizure activity reported. cont home medication. 7. DVT ppx- lovenox
[2017-11-25] MEDS: VANCOMYCIN 1,250 MG in DEXTROSE 5%-WATER - 250 ML IVPB SCH (16:02)
[2017-11-25] MEDS ORDERED: POTASSIUM CHLORIDE TABS 20 MEQ TABLET.ER (FP) PO ONE (17:10)
--- NOTE | 2017-11-25 17:13 | PN ---
Physical Exam: SUBJECTIVE: Patient seen and examined at bedside. Pt is nonverbal. OBJECTIVE: Vital Signs Period Temp Pulse Resp BP Sys/Grossman Pulse Ox Last 24 Hr 98.0 F-100.6 F 95-115 18-22 111-130/67-78 95-95 Gen: NAD. Contracted limbs HEENT: protruding tongue, NCAT Neck: supple, no JVD Cardio: RRR, normal S1S2, no m/r/g Pulm: cta Abd: soft nontender Ext: contracted Laboratory Results - last 24 hr 11/25/17 11/25/17 11/25/17 03:45 06:37 06:37 WBC 8.7 RBC 3.87 L Hgb 12.6 Hct 37.2 MCV 96.1 H MCH 32.6 MCHC 33.9 RDW 13.8 Plt Count 168 MPV 6.7 L Neutrophils % 63.8 Lymphocytes % 25.5 D Monocytes % 9.1 Eosinophils % 1.2 Basophils % 0.4 Nucleated RBC % 0 Sodium 135 L Potassium 3.1 L Chloride 102 Carbon Dioxide 27 D Anion Gap 6 L BUN 3 L Creatinine 0.3 L D Random Glucose 114 H D Calcium 7.7 L Vancomycin Pre-Dose 6.406 D Active Medications Generic Name Dose Route Start Last Admin Trade Name Freq PRN Reason Stop Dose Admin Acetaminophen 650 mg 11/23/17 13:32 11/24/17 23:19 Tylenol Oral Solution - GT 650 mg Q6H PRN Administration FEVER Bisacodyl 10 mg 11/22/17 23:59 Dulcolax Suppository - RC DAILY PRN CONSTIPATION Carbamazepine 400 mg 11/23/17 10:00 11/25/17 10:28 Tegretol Oral Suspension - GT 400 mg BID BRAD Administration Carbamazepine 300 mg 11/23/17 12:00 11/25/17 12:11 Tegretol Oral Suspension - GT 300 mg 1200 BRAD Administration Clobazam 10 mg 11/23/17 22:00 11/24/17 22:47 Onfi - PO 10 mg HS BRAD Administration Clobazam 5 mg 11/23/17 10:00 11/25/17 06:55 Onfi - PO 5 mg AM BRAD Administration Diazepam 10 mg 11/22/17 23:45 Diastat Rectal Gel - RC PRN BRAD Enoxaparin Sodium 40 mg 11/23/17 10:00 11/25/17 10:25 Lovenox - SQ 40 mg DAILY BRAD Administration Fluticasone Propionate 1 spray 11/23/17 10:00 11/25/17 10:24 Flonase - NS 1 spray DAILY BRAD Administration Guaifenesin 10 ml 11/23/17 13:30 11/25/17 12:11 Robitussin - GT 10 ml Q6HPO BRAD Administration Aztreonam 1 gm/ Dextrose 50 mls @ 100 mls/hr 11/23/17 18:00 11/25/17 10:24 IVPB 100 mls/hr Q8H-IV BRAD Administration Protocol Vancomycin HCl 1,250 mg/ 250 mls @ 166.667 mls/hr 11/25/17 17:00 11/25/17 16: 02 Dextrose IVPB 166.667 mls/hr BID@0500,1700 BRAD Administration Protocol Ipratropium [place] 1 amp 11/22/17 23:59 Atrovent 0.02% Nebulizer - NEB RQID PRN WHEEZING Lidocaine/Aluminum/Magnesium/Simeth 5 ml 11/24/17 12:00 11/25/17 13:51 Magic Mouthwash *Sjr Formula* - MM 5 ml Q6HPO BRAD Administration Lorazepam 1 mg 11/22/17 23:59 Ativan - GT DAILY PRN seizure Multi-Ingredient Ointment 1 applic 11/24/17 10:00 11/25/17 10:29 Zinc Oxide TP 1 applic BID BRAD Administration Non-Formulary Medication 1,600 mg 11/23/17 16:00 11/25/17 10:06 Rufinamide [Banzel] GT 1,600 mg BID BRAD Administration Saliva Substitute 1 applic 11/23/17 10:00 11/25/17 10:05 Mouthkote Solution - MM 1 applic DAILY BRAD Administration Topiramate 400 mg 11/23/17 22:00 11/24/17 22:50 Topamax - GT 400 mg HS BRAD Administration Topiramate 200 mg 11/25/17 07:00 11/25/17 06:56 Topamax - GT 200 mg AM BRAD Administration Zonisamide 200 mg 11/23/17 10:00 11/25/17 16:26 Zonisamide GT 200 mg TID BRAD Administration Zonisamide 50 mg 11/23/17 22:00 11/24/17 22:48 Zonisamide PO 50 mg HS BRAD Administration ASSESSMENT/PLAN: 27yo M with PMH CP, functional quadriplegia, MR, dysphagia s/p PEG placement presented to the ER with fever, tachycardia and tachpnea and found to be septic due to PNA #Sepsis due to PNA -improved -Vanco -Aztreonam -d/c IVF -ID on board (will treat 24-48 more hrs) -Sputum Cx Beta Heme Strep Group G -UCx E. Faecalis #Hyponatremia -due to dehydration -resolved #Functional quadriplegia #Dysphagia s/p PEG -Feeds started -aspiration precautions -elevate head of bed #epilepsy -cont home medication #FEN -not on fluids -hypokalemia. Repleting -restarted feeds #DVT ppx -lovenox #Dispo -admitted for Sepsis Raciel Woodson MD PGY-1 IM Visit type - Emergency Visit Emergency Visit: No - New Patient This patient is new to me today: No - Critical Care Critical Care patient: No - Discharge Referral Referred to [facility] Med P.C.: No
[2017-11-25] MEDS: ZONISAMIDE 100 MG/10 ML ORAL SUSPENSION PO SCH (21:27)
[2017-11-26] MEDS ORDERED: PT OWN MED DRAWER 7, Y5N ONE ×4 (01:10→10:15)
[2017-11-26] MEDS: AZTREONAM 1 GM in DEXTROSE 5%-WATER - 50 ML IVPB SCH ×2 (01:39→10:05)
[2017-11-26] MEDS: ACETAMINOPHEN 650 MG/20.3 ML ORAL SOLUTION (CUPS) GT PRN (02:17)
[2017-11-26] MEDS: VANCOMYCIN 1,250 MG in DEXTROSE 5%-WATER - 250 ML IVPB SCH (05:09)
[2017-11-26 05:35] VITALS: BMI 41.8
[2017-11-26] MEDS: TOPIRAMATE 200 MG TABLET (FP) GT SCH (06:06)
[2017-11-26] MEDS: guaiFENesin 200 MG/10 ML 10 ML UNIT-DOSE CUPS GT SCH ×2 (06:06→12:02)
[2017-11-26] MEDS: ZONISAMIDE 100 MG/10 ML ORAL SUSPENSION GT SCH ×2 (06:06→14:04)
[2017-11-26] MEDS: MAG HYDROX/ALH/SMC/DPHA/LIDO 240 ML MOUTHWASH MM SCH ×2 (06:06→12:03)
[2017-11-26] MEDS: cloBAZam 10 MG TABLET PO SCH (06:06)
--- NOTE | 2017-11-26 07:27 | PN ---
Teaching Attending Note Name of Resident: Raciel Woodson ATTENDING PHYSICIAN STATEMENT I saw and evaluated the patient. I reviewed the resident's note and discussed the case with the resident. I agree with the resident's findings and plan as documented with exceptions below. SUBJECTIVE: Patient seen and examined. non verbal, unable to assess for ROS. OBJECTIVE: Vital Signs Period Temp Pulse Resp BP Sys/Grossman Pulse Ox Last 24 Hr 98.0 F-100.2 F 95-111 19-22 103-129/73-86 95-95 Intake & Output 11/23/17 11/24/17 11/25/17 11/26/17 23:59 23:59 23:59 23:59 Intake Total 925 1225 5035 Balance 925 1225 5035 Weight 140 lb 136 lb 9.6 oz 137 lb General: sitting in bed, tachypneic, audible coarse rales Chest: poor effort, limited exam due to lack of co-operation, scattered bilateral coarse rales Abdomen: soft, obese, Extremities: no edema Home Medication List Medication Instructions Recorded Confirmed Type Bisacodyl Suppository [Dulcolax 10 mg RC ASDIR PRN 11/23/17 11/23/17 History Suppository -] Carbamazepine [Tegretol -] 300 mg GT ASDIR 11/23/17 11/23/17 History Carbamazepine [Tegretol -] 400 mg GT AM 11/23/17 11/23/17 History Carbamazepine [Tegretol -] 400 mg GT HS 11/23/17 11/23/17 History Clobazam [Onfi -] 5 mg GT AM 11/23/17 11/23/17 History Clobazam [Onfi -] 10 mg GT HS 11/23/17 11/23/17 History Diazepam [Diastat] 2.5 mg RC ONCE PRN 11/23/17 11/23/17 History Fluticasone Prop 0.05% Nasal 2 spray NS HS 11/23/17 11/23/17 History [Flonase -] Lorazepam [Ativan] 1 mg GT ASDIR PRN 11/23/17 11/23/17 History Polyethylene Glycol 3350 [Miralax 17 gm GT ASDIR 11/23/17 11/23/17 History (For Daily Use) -] Rufinamide [Banzel] 1,600 mg GT BID 11/23/17 11/23/17 History Sodium Phosphate,[place]-Dibasic 266 ml RC ASDIR PRN 11/23/17 11/23/17 History [Fleet Enema] Topiramate [Qudexy Xr] 200 mg GT AM 11/23/17 11/23/17 History Topiramate [Qudexy Xr] 400 mg GT HS 11/23/17 11/23/17 History Zonisamide [Zonegran -] 50 mg GT HS 11/23/17 11/23/17 History Zonisamide [Zonegran] 200 mg GT TID 11/23/17 11/23/17 History Active Medications Generic Name Dose Route Start Last Admin Trade Name Freq PRN Reason Stop Dose Admin Acetaminophen 650 mg 11/23/17 13:32 11/26/17 02:17 Tylenol Oral Solution - GT 650 mg Q6H PRN Administration FEVER Bisacodyl 10 mg 11/22/17 23:59 Dulcolax Suppository - RC DAILY PRN CONSTIPATION Carbamazepine 400 mg 11/23/17 10:00 11/25/17 21:28 Tegretol Oral Suspension - GT 400 mg BID BRAD Administration Carbamazepine 300 mg 11/23/17 12:00 11/25/17 12:11 Tegretol Oral Suspension - GT 300 mg 1200 BRAD Administration Clobazam 10 mg 11/23/17 22:00 11/25/17 21:27 Onfi - PO 10 mg HS BRAD Administration Clobazam 5 mg 11/23/17 10:00 11/26/17 06:06 Onfi - PO 5 mg AM BRAD Administration Enoxaparin Sodium 40 mg 11/23/17 10:00 11/25/17 10:25 Lovenox - SQ 40 mg DAILY BRAD Administration Fluticasone Propionate 1 spray 11/23/17 10:00 11/25/17 10:24 Flonase - NS 1 spray DAILY BRAD Administration Guaifenesin 10 ml 11/23/17 13:30 11/26/17 06:06 Robitussin - GT 10 ml Q6HPO BRAD Administration Aztreonam 1 gm/ Dextrose 50 mls @ 100 mls/hr 11/23/17 18:00 11/26/17 01:39 IVPB 100 mls/hr Q8H-IV BRAD Administration Protocol Vancomycin HCl 1,250 mg/ 250 mls @ 166.667 mls/hr 11/25/17 17:00 11/26/17 05: 09 Dextrose IVPB 166.667 mls/hr BID@0500,1700 BRAD Administration Protocol Ipratropium [place] 1 amp 11/22/17 23:59 Atrovent 0.02% Nebulizer - NEB RQID PRN WHEEZING Lidocaine/Aluminum/Magnesium/Simeth 5 ml 11/24/17 12:00 11/26/17 06:06 Magic Mouthwash *Sjr Formula* - MM 5 ml Q6HPO BRAD Administration Lorazepam 1 mg 11/22/17 23:59 Ativan - GT DAILY PRN seizure Multi-Ingredient Ointment 1 applic 11/24/17 10:00 11/25/17 21:28 Zinc Oxide TP 1 applic BID BRAD Administration Non-Formulary Medication 1,600 mg 11/23/17 16:00 11/25/17 21:27 Rufinamide [Banzel] GT 1,600 mg BID BRAD Administration Saliva Substitute 1 applic 11/23/17 10:00 11/25/17 10:05 Mouthkote Solution - MM 1 applic DAILY BRAD Administration Topiramate 400 mg 11/23/17 22:00 11/25/17 21:27 Topamax - GT 400 mg HS BRAD Administration Topiramate 200 mg 11/25/17 07:00 11/26/17 06:06 Topamax - GT 200 mg AM BRAD Administration Zonisamide 200 mg 11/23/17 10:00 11/26/17 06:06 Zonisamide GT 200 mg TID BRAD Administration Zonisamide 50 mg 11/23/17 22:00 11/25/17 21:27 Zonisamide PO 50 mg HS BRAD Administration Microbiology 11/22/17 19:15 Blood - Peripheral Venous Blood Culture - Preliminary NO GROWTH OBTAINED AFTER 72 HOURS, INCUBATION TO CONTINUE FOR 2 DAYS. 11/22/17 19:15 Blood - Peripheral Venous Blood Culture - Preliminary NO GROWTH OBTAINED AFTER 72 HOURS, INCUBATION TO CONTINUE FOR 2 DAYS. 11/22/17 22:20 Urine - Urine Clean Catch Urine Culture - Final Enterococcus Faecalis 11/23/17 01:00 Sputum - Expectorated Gram Stain - Final 11/23/17 01:00 Sputum - Expectorated Sputum Culture - Final Beta Hem Streptococcus Group G 11/23/17 01:00 Nasopharyngeal Swab Influenza Types A,B Antigen - Final 11/23/17 01:00 Nasopharyngeal Swab - Final Laboratory Results - last 24 hr 11/26/17 11/26/17 07:40 07:40 WBC 6.5 RBC 3.82 L Hgb 12.8 Hct 37.1 MCV 97.0 H MCH 33.5 MCHC 34.5 RDW 13.6 Plt Count 157 MPV 8.0 D Absolute Neuts (auto) 4.1 Neutrophils % 63.6 Lymphocytes % 24.5 Monocytes % 9.3 Eosinophils % 1.8 Basophils % 0.8 Nucleated RBC % 0 Sodium 137 Potassium 3.8 D Chloride 106 Carbon Dioxide 23 Anion Gap 8 BUN 5 L D Creatinine 0.2 L D Creat Clearance w eGFR > 60 Random Glucose 103 Calcium 7.9 L Total Bilirubin 0.3 D AST 30 D ALT 32 Alkaline Phosphatase 144 H Total Protein 6.7 Albumin 2.9 L ASSESSMENT AND PLAN: 27yo M with PMH CP, functional quadriplegia, MR, dysphagia s/p PEG placement presented to the ER with fever, tachycardia and tachpnea and found to be septic due to PNA -Sepsis likely from Aspiration PNA -Hypovolumic hyponatremia -Hypokalemia -Cerebral palsy -Functional quadriplegia -Dysphagia s/p PEG -Epilepsy Plan: Aztreonam/vanco day 5, sputum cultures noted. Blood cx neg. Low grade fevers but overall improved, ID input noted, levaquin for 7 days. Chest PT. Add standing nebs Replete K prn. Continue home tube feeds (replete) Continue home anti-epileptics DVTPPX Lovenox Tachypneic with coarse rales this AM, assess post Chest PT and nebs later today. Dispo planning back to [place] in 24 hours if no events and continues to improve on addition 7 day course of levaquin.
[2017-11-26 08:56] LABS: ALBUMIN 2.9 g/dl (3.4-5.0); ALK PHOS 144 U/L (45-117); ANION GAP 8 (8-16); BILIRUBIN,TOTAL 0.3 mg/dL (0.2-1.0); BLOOD UREA NITROGEN 5 mg/dL (7-18); CALCIUM 7.9 mg/dL (8.5-10.1); CHLORIDE 106 mmol/L (98-107); CO2 23 mmol/L (21-32); CREATININE 0.2 mg/dL (0.7-1.3); GLUCOSE,RANDOM 103 mg/dL (74-106); SGPT/ALT 32 U/L (12-78); SODIUM 137 mmol/L (136-145); TOT PROT 6.7 g/dl (6.4-8.2)
[2017-11-26 08:57] LABS: BASO % 0.8 % (0-2.0); EOS % 1.8 % (0-4.5); HEMATOCRIT 37.1 % (35.4-49); HEMOGLOBIN 12.8 GM/dL (11.7-16.9); LYMPH % 24.5 % (8-40); MCH 33.5 pg (25.7-33.7); MCHC 34.5 g/dl (32.0-35.9); MONO % 9.3 % (3.8-10.2); NEUT % 63.6 % (42.8-82.8); PLATELET COUNT 157 K/MM3 (134-434); RBC 3.82 M/mm3 (4.00-5.60); RDW 13.6 % (11.9-15.9); WHITE BLOOD COUNT 6.5 K/mm3 (4.0-10.0)
[2017-11-26 09:14] LABS: SGOT/AST 30 U/L (15-37)
[2017-11-26 09:16] LABS: POTASSIUM 3.8 mmol/L (3.5-5.1)
[2017-11-26] MEDS: ZINC OXIDE 20% TOPICAL OINTMENT 30 GM TUBE TP SCH (10:05)
[2017-11-26] MEDS: LYTES/YERBA SANTA 240 ML BOTTLE MM SCH (10:07)
[2017-11-26] MEDS: FLUTICASONE PROP 0.05% 16 GM NASAL SPRAY NS SCH (10:07)
[2017-11-26] MEDS: ENOXAPARIN NA (PORCINE) 40 MG/0.4 ML DISP.SYRIN SQ SCH (10:08)
[2017-11-26] MEDS: carBAMazepine 200 MG/10 ML UNIT-DOSE CUP GT SCH ×2 (10:10→12:02)
[2017-11-26] MEDS: RUFINAMIDE GT SCH (10:22)
--- NOTE | 2017-11-26 11:17 | PN ---
Progress Note, Physician History of Present Illness: Awake, non verbal. Slightly tachypneic on RA Less congested Low grade fever WBC WNL Sputum grp G strep Urine c/s Enterococcus ? significance - Current Medication List Current Medications: Active Medications Acetaminophen (Tylenol Oral Solution -) 650 mg GT Q6H PRN PRN Reason: FEVER Last Admin: 11/26/17 02:17 Dose: 650 mg Bisacodyl (Dulcolax Suppository -) 10 mg RC DAILY PRN PRN Reason: CONSTIPATION Carbamazepine (Tegretol Oral Suspension -) 400 mg GT BID [facility] Last Admin: 11/26/17 10:10 Dose: 400 mg Carbamazepine (Tegretol Oral Suspension -) 300 mg GT 1200 BRAD Last Admin: 11/25/17 12:11 Dose: 300 mg Clobazam (Onfi -) 10 mg PO HS [facility] Last Admin: 11/25/17 21:27 Dose: 10 mg Clobazam (Onfi -) 5 mg PO AM [facility] Last Admin: 11/26/17 06:06 Dose: 5 mg Enoxaparin Sodium (Lovenox -) 40 mg SQ DAILY [facility] Last Admin: 11/26/17 10:08 Dose: 40 mg Fluticasone Propionate (Flonase -) 1 spray NS DAILY [facility] Last Admin: 11/26/17 10:07 Dose: 1 spray Guaifenesin (Robitussin -) 10 ml GT Q6HPO [facility] Last Admin: 11/26/17 06:06 Dose: 10 ml Aztreonam 1 gm/ Dextrose 50 mls @ 100 mls/hr IVPB Q8H-IV BRAD; Protocol Last Admin: 11/26/17 10:05 Dose: 100 mls/hr Vancomycin HCl 1,250 mg/ (Dextrose) 250 mls @ 166.667 mls/hr IVPB BID@0500, 1700 [facility]; Protocol Last Admin: 11/26/17 05:09 Dose: 166.667 mls/hr Ipratropium [place] (Atrovent 0.02% Nebulizer -) 1 amp NEB RQID PRN PRN Reason: WHEEZING Lidocaine/Aluminum/Magnesium/Simeth (Magic Mouthwash *Sjr Formula* -) 5 ml MM Q6HPO BRAD Last Admin: 11/26/17 06:06 Dose: 5 ml Lorazepam (Ativan -) 1 mg GT DAILY PRN PRN Reason: seizure Multi-Ingredient Ointment (Zinc Oxide) 1 applic TP BID [facility] Last Admin: 11/26/17 10:05 Dose: 1 applic Non-Formulary Medication (Rufinamide [Banzel]) 1,600 mg GT BID [facility] Last Admin: 11/26/17 10:22 Dose: 1,600 mg Saliva Substitute (Mouthkote Solution -) 1 applic MM DAILY [facility] Last Admin: 11/26/17 10:07 Dose: 1 applic Topiramate (Topamax -) 400 mg GT HS [facility] Last Admin: 11/25/17 21:27 Dose: 400 mg Topiramate (Topamax -) 200 mg GT AM [facility] Last Admin: 11/26/17 06:06 Dose: 200 mg Zonisamide (Zonisamide) 200 mg GT TID [facility] Last Admin: 11/26/17 06:06 Dose: 200 mg Zonisamide (Zonisamide) 50 mg PO [facility] Last Admin: 11/25/17 21:27 Dose: 50 mg - Objective Vital Signs: Vital Signs Temperature 98.2 F 11/26/17 09:50 Pulse Rate 95 H 11/26/17 09:50 Respiratory Rate 19 11/26/17 09:50 Blood Pressure 144/60 11/26/17 09:50 O2 Sat by Pulse Oximetry (%) 95 11/25/17 21:00 Constitutional: Yes: No Distress Eyes: Yes: Conjunctiva Clear Cardiovascular: Yes: Regular Rate and Rhythm, S1, S2 Respiratory: Yes: Rhonchi Gastrointestinal: Yes: Normal Bowel Sounds, Soft, Abdomen, Obese. No: Tenderness Labs: CBC, BMP 11/26/17 07:40 11/26/17 07:40 INR, PTT INR 1.22 (0.82-1.09) H 11/22/17 20:30 Assessment/Plan Probable aspiration pneumonia improved Possible sepsis secondary to pneumonia PCN/ CP allergies CP/MR + urine c/s probable contaminant Empiric vancomycin/ aztreonam day#5 Oral options limited Suggest levaquin 500mg po qd 7d Aspiration precautions, suctioning
[2017-11-26] MEDS ORDERED: IPRATROPIUM BR 0.02% 0.5 MG/2.5 ML VIAL.NEB. NEB SCH (11:30)
--- NOTE | 2017-11-26 13:45 | CON.PULM ---
Consult Consult Specialty:: PULMONARY Referred by:: Dr. Larsen Reason for Consultation:: recurrent pneumonia - History of Present Illness Chief Complaint: fever History of Present Illness: 27yo male with h/o cerebral palsy, mental retardation, functional quadriplegia, seizure disorder, recurrent pneumonia who was sent from [place] for fevers, tachycardia. Started on antibiotics for suspected aspiration pneumonia with improvement in fever curve and leukocytosis. Pt unable to provide further history at this time. - History Source History Provided By: Medical Record Limitations to Obtaining History: Clinical Condition - Alcohol/Substance Use Hx Alcohol Use: No - Smoking History Smoking history: Unknown if ever smoked Have you smoked in the past 12 months: No Home Medications - Allergies Allergies/Adverse Reactions: Allergies Allergy/AdvReac Type Severity Reaction Status Date / Time albuterol Allergy Verified 11/23/17 03:17 Cephalosporins Allergy Verified 11/23/17 03:17 latex Allergy Verified 11/23/17 03:17 Penicillins Allergy Verified 11/23/17 03:17 shrimp Allergy Verified 11/23/17 03:17 wool Allergy Verified 11/23/17 03:17 - Home Medications Home Medications: Ambulatory Orders Bisacodyl Suppository [Dulcolax Suppository -] 10 mg RC ASDIR PRN 11/23/17 Carbamazepine [Tegretol -] 300 mg GT ASDIR 11/23/17 Carbamazepine [Tegretol -] 400 mg GT AM 11/23/17 Carbamazepine [Tegretol -] 400 mg GT 11/23/17 Clobazam [Onfi -] 5 mg GT AM 11/23/17 Clobazam [Onfi -] 10 mg GT HS 11/23/17 Diazepam [Diastat] 2.5 mg RC ONCE PRN 11/23/17 Fluticasone Prop 0.05% Nasal [Flonase -] 2 spray NS HS 11/23/17 Lorazepam [Ativan] 1 mg GT ASDIR PRN 11/23/17 Polyethylene Glycol 3350 [Miralax 119 gm Btl -] 17 gm GT ASDIR 11/23/17 Rufinamide [Banzel] 1,600 mg GT BID 11/23/17 Sodium Phosphate,[place]-Dibasic [Fleet Enema] 266 ml RC ASDIR PRN 11/23/17 Topiramate [Qudexy Xr] 200 mg GT AM 11/23/17 Topiramate [Qudexy Xr] 400 mg GT HS 11/23/17 Zonisamide [Zonegran -] 50 mg GT HS 11/23/17 Zonisamide [Zonegran] 200 mg GT TID 11/23/17 Review of Systems Unable to obtain ROS, reason: pt nonverbal Physical Exam Vital Sings: Vital Signs Temperature 98.2 F 11/26/17 09:50 Pulse Rate 95 H 11/26/17 09:50 Respiratory Rate 19 11/26/17 09:50 Blood Pressure 144/60 11/26/17 09:50 O2 Sat by Pulse Oximetry (%) 95 11/25/17 21:00 Constitutional: Yes: Calm Eyes: Yes: Conjunctiva Clear, EOM Intact HENT: Yes: Atraumatic, Normocephalic Neck: Yes: Supple, Trachea Midline Cardiovascular: Yes: Regular Rate and Rhythm Respiratory: Yes: Rhonchi (scattered) ...Clubbing: No Gastrointestinal: Yes: Normal Bowel Sounds, Soft. No: Tenderness Edema: No Labs: CBC, BMP 11/26/17 07:40 11/26/17 07:40 Imaging - Results Chest X-ray: Report Reviewed, Image Reviewed (severe scoliosis, spinal rods) Problem List - Problems (1) PNA (pneumonia) Code(s): J18.9 - PNEUMONIA, UNSPECIFIED ORGANISM Qualifiers: Pneumonia type: due to unspecified organism Laterality: unspecified laterality Lung location: unspecified part of lung Qualified Code(s): J18.9 - Pneumonia, unspecified organism (2) Sepsis Code(s): A41.9 - SEPSIS, UNSPECIFIED ORGANISM Qualifiers: Sepsis type: sepsis due to unspecified organism Qualified Code(s): A41.9 - Sepsis, unspecified organism (3) Hyponatremia Code(s): E87.1 - HYPO-OSMOLALITY AND HYPONATREMIA (4) Cerebral palsy Code(s): G80.9 - CEREBRAL PALSY, UNSPECIFIED (5) Functional quadriplegia Code(s): R53.2 - FUNCTIONAL QUADRIPLEGIA Assessment/Plan Pneumonia likely recurrent aspiration Sepsis Severe Scoliosis Cerebral Palsy Mental Retardation Seizure Disorder Functional Quadriplegia - continue antibiotics per ID - aspiration precautions - keep head of bed >30degrees - mouth care - chest PT - inhaled bronchodilators - O2 to keep SpO2 >90% - DVT prophylaxis Thank you for this consult Damon Iglesias MD
[2017-11-26 14:51] VITALS: BP 112/61; PULSE 104; TEMP 98.3
--- NOTE | 2017-11-26 15:46 | DS ---
Physical Exam: SUBJECTIVE: Patient seen and examined at bedside. Nonverbal. No acute events. Afebrile. OBJECTIVE: Vital Signs Period Temp Pulse Resp BP Sys/Grossman Pulse Ox Last 24 Hr 98.2 F-100.2 F 88-111 18-20 102-144/60-86 95 PHYSICAL EXAM Limited exam. Pt is nonverbal. Gen: NAD, unresponsive cerebral palsy pt HEENT: atraumatic. PERRLA. Eyes do not track. Neck: supple, no jvd Cardiac: mild tachy, regular, s1s2, no m/r/g Lungs: diffuse expiratory rumble at pt's baseline abd: soft, no guarding ext: contracted, 2+ distal pulses LABS Laboratory Results - last 24 hr 11/26/17 11/26/17 07:40 07:40 WBC 6.5 RBC 3.82 L Hgb 12.8 Hct 37.1 MCV 97.0 H MCH 33.5 MCHC 34.5 RDW 13.6 Plt Count 157 MPV 8.0 D Absolute Neuts (auto) 4.1 Neutrophils % 63.6 Lymphocytes % 24.5 Monocytes % 9.3 Eosinophils % 1.8 Basophils % 0.8 Nucleated RBC % 0 Sodium 137 Potassium 3.8 D Chloride 106 Carbon Dioxide 23 Anion Gap 8 BUN 5 L D Creatinine 0.2 L D Creat Clearance w eGFR > 60 Random Glucose 103 Calcium 7.9 L Total Bilirubin 0.3 D AST 30 D ALT 32 Alkaline Phosphatase 144 H Total Protein 6.7 Albumin 2.9 L HOSPITAL COURSE: Date of Admission:11/22/17 Date of Discharge: 11/26/17 27yo M with PMH CP, functional quadriplegia, MR, dysphagia s/p PEG placement presented to the ER with fever, tachycardia and tachpnea and found to be septic due to PNA. Pt was admitted for evaluation and treatment of PNA. Pt was seen by ID and was treated with IV Vanco and Aztreonam. Sputum culture was pos for Beta Heme Strep Group G. UCx was pos for E. Faecalis On admission, pt had hyponatremia. It was felt to be due to dehydration and promptly resolved with IV fluids. Because of pt's known dysphagia and PEG, he was placed on aspiration precautions and head of bed. Pt's epilepsy was treated with his home medications. Pt is functionally quadriplegic at baseline. Pt is currently stable for d/c back to [facility]. Minutes to complete discharge: 30 Discharge Summary Reason For Visit: SEPSIS,PNEUMONIA Condition: Good - Instructions Diet, Activity, Other Instructions: Pt was in the hospital because of pneumonia. Pt has been evaluated by ID and Pulmonology and it it felt that most likely, his recurrent PNA is due to aspiration. Will need Levaquin 500mg PO x 7 d, aspiration precautions, suctioning. Elevate head of bed > 30 deg. Aspiration precautions. Referrals: Mateo Coy MD [Staff Physician] - 2 Weeks Disposition: [facility] - Home Medications Comprehensive Discharge Medication List: Ambulatory Orders Bisacodyl Suppository [Dulcolax Suppository -] 10 mg RC ASDIR PRN 11/23/17 Carbamazepine [Tegretol -] 300 mg GT ASDIR 11/23/17 Carbamazepine [Tegretol -] 400 mg GT AM 11/23/17 Carbamazepine [Tegretol -] 400 mg GT HS 11/23/17 Clobazam [Onfi -] 5 mg GT AM 11/23/17 Clobazam [Onfi -] 10 mg GT HS 11/23/17 Diazepam [Diastat] 2.5 mg RC ONCE PRN 11/23/17 Fluticasone Prop 0.05% Nasal [Flonase -] 2 spray NS HS 11/23/17 Lorazepam [Ativan] 1 mg GT ASDIR PRN 11/23/17 Polyethylene Glycol 3350 [Miralax 119 gm Btl -] 17 gm GT ASDIR 11/23/17 Rufinamide [Banzel] 1,600 mg GT BID 11/23/17 Sodium Phosphate,[place]-Dibasic [Fleet Enema] 266 ml RC ASDIR PRN 11/23/17 Topiramate [Qudexy Xr] 200 mg GT AM 11/23/17 Topiramate [Qudexy Xr] 400 mg GT HS 11/23/17 Zonisamide [Zonegran -] 50 mg GT HS 11/23/17 Zonisamide [Zonegran] 200 mg GT TID 11/23/17 levoFLOXacin [Levaquin -] 500 mg PO DAILY #7 tablet 11/26/17 This patient is new to me today: No Emergency Visit: No Critical Care patient: No - Discharge Referral Referred to [facility] Med [facility] No
== END 2017-11-26 18:00 | disposition home or self-care (01) | DRG 871 ==
LOC: JER 18:05 → JERBED 23:05 → J4S 11-23 16:22
PROVIDERS: ADMIT Internal Medicine; ATTEND Hospitalist
DX: A40.9 Streptococcal sepsis, unspecified (principal); R53.2 Functional quadriplegia; J69.0 Pneumonitis due to inhalation of food and vomit; E87.1 Hypo-osmolality and hyponatremia; G40.909 Epilepsy, unspecified, not intractable, without status epilepticus; R13.10 Dysphagia, unspecified; G80.9 Cerebral palsy, unspecified; E86.0 Dehydration; M41.80 Other forms of scoliosis, site unspecified; F79 Unspecified intellectual disabilities; E87.6 Hypokalemia; D72.829 Elevated white blood cell count, unspecified
CPT/HCPCS: 36415; 71045-TC-FY; 80048; 80053; 82550; 82803; 83605; 83735; 84100; 84484; 85025; 85610; 85730; 87040; 87070; 87077; 87086; 87186; 87205; 87804; 93005; 93010; 99283-25; G0480; J0131; J7030

== ENCOUNTER 2018-02-13 22:03 | Inpatient (IN) | payer OTHER ==
--- NOTE | 2018-02-13 22:27 | PDOC ---
History of Present Illness - General Chief Complaint: Shortness of Breath Stated Complaint: SHORTNESS OF BREATH Time Seen by Provider: 02/13/18 22:25 History Source: Shelter Records Exam Limitations: Clinical Condition (CP, autism. Pt non-verbal at baseline), Physical Impairment - History of Present Illness Initial Comments: Pt, with PMH of CP, MR, frequent pneumonia, G-tube, and epilepsy, presents from [place] due to congestion and respiratory distress. correction records state that pt is "very congested. Suctioned and O2 Sat 84-86 on RA. On 6 L O2, O2 sat 92%, T 98.8, RR 24, BP 108/64. Neb ipratropium given at 8:45 pm. Please evaluate ". Pt is accompanied by a caregiver, who came onto shift when the ambulance arrived, so he cannot provide ROS. 02/13/18 22:54 Past History - Travel Traveled outside of the country in the last 30 days: No Close contact w/someone who was outside of country & ill: No - Past Medical History Allergies/Adverse Reactions: Allergies Allergy/AdvReac Type Severity Reaction Status Date / Time albuterol Allergy Verified 02/13/18 22:09 Cephalosporins Allergy Verified 02/13/18 22:09 latex Allergy Verified 02/13/18 22:09 Penicillins Allergy Verified 02/13/18 22:09 shrimp Allergy Verified 02/13/18 22:09 wool Allergy Verified 02/13/18 22:09 Home Medications: Ambulatory Orders Bisacodyl Suppository [Dulcolax Suppository -] 10 mg RC ASDIR PRN 11/23/17 Carbamazepine [Tegretol -] 300 mg GT ASDIR 11/23/17 Carbamazepine [Tegretol -] 400 mg GT AM 11/23/17 Carbamazepine [Tegretol -] 400 mg GT 11/23/17 Clobazam [Onfi -] 5 mg GT AM 11/23/17 Clobazam [Onfi -] 10 mg GT 11/23/17 Diazepam [Diastat] 2.5 mg RC ONCE PRN 11/23/17 Fluticasone Prop 0.05% Nasal [Flonase -] 2 spray NS 11/23/17 Lorazepam [Ativan] 1 mg GT ASDIR PRN 11/23/17 Polyethylene Glycol 3350 [Miralax 119 gm Btl -] 17 gm GT ASDIR 11/23/17 Rufinamide [Banzel] 1,600 mg GT BID 11/23/17 Sodium Phosphate,[place]-Dibasic [Fleet Enema] 266 ml RC ASDIR PRN 11/23/17 Topiramate [Qudexy Xr] 200 mg GT AM 11/23/17 Topiramate [Qudexy Xr] 400 mg GT HS 11/23/17 Zonisamide [Zonegran -] 50 mg GT HS 11/23/17 Zonisamide [Zonegran] 200 mg GT TID 11/23/17 levoFLOXacin [Levaquin -] 500 mg PO DAILY #7 tablet 11/26/17 Anemia: No Asthma: No COPD: No GI Disorders: Yes (gtube) Seizures: Yes (epilepsy, cp,) - Surgical History Abdominal Surgery: Yes (gtube feeding) - Immunization History Immunization Up to Date: Yes - Suicide/Smoking/Psychosocial Hx Smoking History: Former smoker Have you smoked in the past 12 months: No Information on smoking cessation initiated: No Hx Alcohol Use: No Drug/Substance Use Hx: No Substance Use Type: None Review of Systems - Review of Systems Able to Perform ROS?: No (pt does not interact) Is the patient limited Congolese proficient: Yes Respiratory: Yes: Shortness of Breath ("congestion" and decreased O2 sat (see HPI from [facility] note)) *Physical Exam - Vital Signs Last Vital Signs Temp Pulse Resp BP Pulse Ox 97.6 F 103 H 18 116/76 100 02/13/18 22:09 02/13/18 22:09 02/13/18 22:09 02/13/18 22:09 02/13/18 22:09 - Physical Exam General Appearance: Yes: Nourished, Appropriately Dressed, Mild Distress (Pt tachycardic, diaphoretic. Does not make eye contact but has eye opening when calling name and performing exam.) HEENT: positive: EOMI, VALENTINE, Hearing Grossly Normal (pt opens eyes to name), Other (poor dentition. lips dry. pt holds mouth open.). negative: Normal ENT Inspection, Pharynx Normal, Scleral Icterus (R), Scleral Icterus (L), Pharyngeal Erythema, Tonsillar Exudate, Tonsillar Erythema, Nasal Congestion, Sinus Tenderness, Excessive drooling Neck: positive: Trachea midline, Supple. negative: Tender, Rigid, Lymphadenopathy (R), Lymphadenopathy (L) Respiratory/Chest: positive: Rhonchi (coarse lung sounds b/l, no wheezing on presentation). negative: Chest Tender, Lungs Clear, Normal Breath Sounds, Respiratory Distress, Accessory Muscle Use, Labored Respiration, Wheezing Cardiovascular: positive: Regular Rhythm, S1, S2, Tachycardia. negative: Regular Rate, Edema, JVD, Murmur Vascular Pulses: Carotid (R): 4+, Carotid (L): 4+ Gastrointestinal/Abdominal: positive: Normal Bowel Sounds, Flat, Soft. negative : Tender (no grimace to palpation), Organomegaly, Pulsatile Mass, Guarding, Rebound Rectal Exam: positive: deferred Lymphatic: negative: Adenopathy, Tenderness Musculoskeletal: positive: Other (atrophy of lower extremities b/l). negative: Normal Inspection, CVA Tenderness Extremity: positive: Normal Capillary Refill, Normal Inspection, Normal Range of Motion, Pelvis Stable. negative: Tender, Cyanosis, Delayed Capillary Refill , Pedal Edema, Calf Tenderness Integumentary: positive: Normal Color, Warm, Diaphoresis. negative: Dry, Jaundice, Mottled, Petechiae, Rash, Ecchymosis Neurologic: positive: Alert (opens eyes spontaneously and with name calling), Other (pt does not interact or make eye contact. will open eyes when calling name and during abdominal exam.). negative: sweet pickle maker II-XII NML intact, Fully Oriented, Normal Response, Motor Strength 5/5, EOM Palsy, Facial Droop Medical Decision Making - Medical Decision Making Pt seen at bedside, also seen by Dr. Almonte. Pt comes from [facility] with respiratory distress and congestion. Pt has had multiple incidents of septic pneumonia (last admission strep beta-hemolytic Group G). Pt afebrile, but tachycardic. Coarse breath sounds throughout. Pt does not interact, but will open his eyes to his name and will squeeze hand. Ordered sepsis work-up. Ordered portable chest x-ray. 02/13/18 23:35 Labs pending. Pt lying comfortably. Signed out to Dr. Anderson. Vitals stable. 02/14/18 00:22 *DC/Admit/Observation/Transfer Diagnosis at time of Disposition: Respiratory distress Cerebral palsy Qualifiers: Cerebral palsy type: unspecified type Qualified Code(s): G80.9 - Cerebral palsy , unspecified - Referrals - Patient Instructions - Post Discharge Activity
[2018-02-14] LABS: VENOUS PC02 50.9 mmHg (38-52); VENOUS PH 7.33 (7.32-7.42); VENOUS PO2 53.2 mmHg (28-48)
[2018-02-14 00:01] LABS: BASO % 0.1 % (0-2.0); EOS % 0.2 % (0-4.5); HEMATOCRIT 47.9 % (35.4-49); HEMOGLOBIN 16.4 GM/dL (11.7-16.9); LYMPH % 16.6 % (8-40); MCH 32.3 pg (25.7-33.7); MCHC 34.3 g/dl (32.0-35.9); MEAN CELL VOLUME 94.2 fl (80-96); MEAN PLT VOLUME 7.2 fl (7.5-11.1); MONO % 4.8 % (3.8-10.2); NEUT % 78.3 % (42.8-82.8); PLATELET COUNT 206 K/MM3 (134-434); RBC 5.08 M/mm3 (4.00-5.60); RDW 14.1 % (11.9-15.9); WHITE BLOOD COUNT 10.1 K/mm3 (4.0-10.0)
[2018-02-14 00:16] LABS: INR 1.11 (0.83-1.09); PROTHROMBIN TIME (PATIENT) 12.5 SEC (9.7-13.0)
[2018-02-14 00:19] LABS: ACTIVATED PTT 48.9 SECONDS (25.2-36.5)
--- NOTE | 2018-02-14 00:22 | PDOC ---
Attending Attestation - HPI HPI: 02/14/18 00:53 The patient is a 28-year-old male with significant past medical history of CP, MR, autism, frequent pneumonia, epilepsy, who presents to the emergency department today [facility] from [place] to be evaluated for difficulty breathing ( decreased O2 sat at 92%) and congestion. As per patients palliative care specialist at bedside , the patient was febrile at the facility. History is limited due to patients status, and the patients palliative care specialist came on duty when the ambulance was arriving. The patient is nonresponsive and contracted at baseline. Denies urinary/bowel changes. Denies chills, vomiting. Allergies: NKA Social history: none Surgical history: G-tube PCP: unknown - Physicial Exam PE: 02/14/18 00:54 Vitals: Triage vital signs reviewed General Appearance: No acute distress, non responsive as per baseline, nourished Head: Atraumatic Eyes: Pupils equal reactive round, extraocular movement intact Ears: TM's normal bilaterally Nose: Nares patent bilaterally; no nasal congestion Throat: Posterior oropharynx without erythema, mucous membranes moist Neck: Supple; No nuchal rigidity Chest Wall: Nontender Cardiac: Regular rate, tachychardic, no murmurs, no rubs, no gallops Lungs: Coarse breath sounds Abdomen: Soft, nondistended, normal bowel sounds, nontender to palpation Rectal: Exam deferred Extremities: no cyanosis, clubbing, or edema Neuro: Alert, able to follow basic commands Skin: Warm and dry, no rashes or lesions, no rash, no petechiae <Kandy Asher - Last Filed: 02/14/18 00:59> - Resident Resident Name: Qian Don - ED Attending Attestation I have performed the following: I have examined & evaluated the patient, The case was reviewed & discussed with the resident, I agree w/resident's findings & plan, Exceptions are as noted - Medical Decision Making 02/14/18 01:57 28 years old with severe MRCP presents to the emergency department with hypoxia difficulty breathing and fevers at his correction was given ipratropium nebulizer and sent to ED upon arrival to the ED patient symptomatology is improved with supplemental oxygen No fever in the ED no leukocytosis no chest x-ray we'll treat with Levaquin for presumed wheezy bronchitis and observe overnight to ensure no deterioration in respiratory status. <Ash Almonte - Last Filed: 02/14/18 01:59> Attestations - Attestations 02/14/18 00:54 Documentation prepared by Kandy Asher, acting as medical unit secretary for Ash Almonte MD. <Kandy Asher - Last Filed: 02/14/18 00:59> ED Treatment Course - LABORATORY CBC & Chemistry Diagram: 02/13/18 23:40 02/13/18 23:40 - ADDITIONAL ORDERS Additional order review: Laboratory Results 02/13/18 02/13/18 02/13/18 23:40 23:40 23:40 PT with INR INR PTT (Actin FS) VBG pH POC VBG pCO2 POC VBG pO2 Mixed VBG HCO3 Sodium 133 L Potassium 4.4 Chloride 97 L Carbon Dioxide 26 Anion Gap 10 BUN 7 Creatinine 0.4 L Creat Clearance w eGFR > 60 Random Glucose 92 Lactic Acid 0.6 Calcium 8.9 Total Bilirubin 0.3 AST 27 ALT 42 D Alkaline Phosphatase 240 H Troponin I < 0.02 Total Protein 8.8 H Albumin 4.3 02/13/18 02/13/18 23:40 23:40 PT with INR 12.50 INR 1.11 H PTT (Actin FS) 48.9 H VBG pH 7.33 POC VBG pCO2 50.9 POC VBG pO2 53.2 H D Mixed VBG HCO3 25.8 H Sodium Potassium Chloride Carbon Dioxide Anion Gap BUN Creatinine Creat Clearance w eGFR Random Glucose Lactic Acid Calcium Total Bilirubin AST ALT Alkaline Phosphatase Troponin I Total Protein Albumin 02/13/18 23:40 RBC 5.08 MCV 94.2 MCHC 34.3 RDW 14.1 MPV 7.2 L Neutrophils % 78.3 D Lymphocytes % 16.6 D Monocytes % 4.8 Eosinophils % 0.2 D Basophils % 0.1 - RADIOLOGY Radiograph Interpretation: 02/14/18 01:02 Chest Xray was reviewed by Dr. Almonte and overread by Radiology. Impression: No significant interval change <Kandy Asher - Last Filed: 02/14/18 00:59> - LABORATORY CBC & Chemistry Diagram: 02/13/18 23:40 02/13/18 23:40 <Ash Almonte - Last Filed: 02/14/18 01:59>
[2018-02-14 00:29] LABS: ALBUMIN 4.3 g/dl (3.4-5.0); ALK PHOS 240 U/L (45-117); ANION GAP 10 MMOL/L (8-16); BILIRUBIN,TOTAL 0.3 mg/dL (0.2-1.0); BLOOD UREA NITROGEN 7 mg/dL (7-18); CALCIUM 8.9 mg/dL (8.5-10.1); CHLORIDE 97 mmol/L (98-107); CO2 26 mmol/L (21-32); CREATININE 0.4 mg/dL (0.7-1.3); GLUCOSE,RANDOM 92 mg/dL (74-106); SGPT/ALT 42 U/L (12-78); SODIUM 133 mmol/L (136-145); TOT PROT 8.8 g/dl (6.4-8.2)
[2018-02-14 00:35] LABS: POTASSIUM 4.4 mmol/L (3.5-5.1); SGOT/AST 27 U/L (15-37)
[2018-02-14] MEDS ORDERED: SODIUM CHLORIDE FOR INHALATION 3 ML VIAL.NEB IH ONE (01:14)
--- NOTE | 2018-02-14 02:21 | PDOC ---
*Physical Exam - Vital Signs Last Vital Signs Temp Pulse Resp BP Pulse Ox 97.6 F 89 16 126/85 99 02/13/18 22:09 02/14/18 01:14 02/14/18 01:14 02/14/18 01:14 02/14/18 01:14 ED Treatment Course - LABORATORY CBC & Chemistry Diagram: 02/13/18 23:40 02/13/18 23:40 - ADDITIONAL ORDERS Additional order review: Laboratory Results 02/13/18 02/13/18 02/13/18 23:40 23:40 23:40 PT with INR INR PTT (Actin FS) VBG pH POC VBG pCO2 POC VBG pO2 Mixed VBG HCO3 Sodium 133 L Potassium 4.4 Chloride 97 L Carbon Dioxide 26 Anion Gap 10 BUN 7 Creatinine 0.4 L Creat Clearance w eGFR > 60 Random Glucose 92 Lactic Acid 0.6 Calcium 8.9 Total Bilirubin 0.3 AST 27 ALT 42 D Alkaline Phosphatase 240 H Troponin I < 0.02 Total Protein 8.8 H Albumin 4.3 02/13/18 02/13/18 23:40 23:40 PT with INR 12.50 INR 1.11 H PTT (Actin FS) 48.9 H VBG pH 7.33 POC VBG pCO2 50.9 POC VBG pO2 53.2 H D Mixed VBG HCO3 25.8 H Sodium Potassium Chloride Carbon Dioxide Anion Gap BUN Creatinine Creat Clearance w eGFR Random Glucose Lactic Acid Calcium Total Bilirubin AST ALT Alkaline Phosphatase Troponin I Total Protein Albumin 02/13/18 23:40 RBC 5.08 MCV 94.2 MCHC 34.3 RDW 14.1 MPV 7.2 L Neutrophils % 78.3 D Lymphocytes % 16.6 D Monocytes % 4.8 Eosinophils % 0.2 D Basophils % 0.1 - Medications Given in the ED: ED Medications Discontinued Medications Generic Name Dose Route Start Last Admin Trade Name Freq PRN Reason Stop Dose Admin Levofloxacin 500 mg in 100 mls @ 100 mls/hr 02/14/18 01:14 02/14/18 01:53 Levaquin 500 Mg Premixed Ivpb - IVPB 02/14/18 02:13 100 mls/hr ONCE ONE Administration Protocol Sodium Chloride 3 ml 02/14/18 01:14 02/14/18 01:53 Normal Saline For Inhalation - IH 02/14/18 01:15 3 ml ONCE ONE Administration Medical Decision Making - Medical Decision Making 02/14/18 02:19 Pt signed out to me by Dr. Don. Awaiting labs to rule out sepsis. Labs- no elevated WBC, lactate 0.6 CXR: no acute pathology Pt given dose of Levaquin for bronchitis. Because pt was saturating in mid 80s at [place], pt will be admitted obs. *DC/Admit/Observation/Transfer Diagnosis at time of Disposition: Respiratory distress Cerebral palsy Qualifiers: Cerebral palsy type: unspecified type Qualified Code(s): G80.9 - Cerebral palsy , unspecified - Discharge Dispostion Decision to Admit order: Yes Decision to Admit order Date/Time: Decision to Admit Order Category Date Time Status Decision to Admit to Hospital Routine Admission 02/14/18 01:43 Active - Referrals - Patient Instructions - Post Discharge Activity
--- NOTE | 2018-02-14 04:18 | HP ---
CHIEF COMPLAINT: hypoxia PCP: Mark HISTORY OF PRESENT ILLNESS: 28 yr old man with CP, MR, epilepsy, with G-tube, nonverbal, hx of multiple pna' s sent from [place] for evaluation of congestion, o2 sat of 84-86% on RA and respiratory rate of 24. pt nonverbal. chart reviewed for hx. PAST MEDICAL HISTORY: cerebral palsy, epilepsy, intellectual disability PAST SURGICAL HISTORY: scoliosis repair G-tube Social History: lives at [place] Smoking: none Alcohol:none Drugs: none Family History: NC Allergies albuterol Allergy (Verified 02/13/18 22:09) Cephalosporins Allergy (Verified 02/13/18 22:09) latex Allergy (Verified 02/13/18 22:09) Penicillins Allergy (Verified 02/13/18 22:09) shrimp Allergy (Verified 02/13/18 22:09) wool Allergy (Verified 02/13/18 22:09) HOME MEDICATIONS: Home Medications Medication Instructions Recorded Bisacodyl Suppository [Dulcolax 10 mg RC ASDIR PRN 11/23/17 Suppository -] Carbamazepine [Tegretol -] 300 mg GT ASDIR 11/23/17 Carbamazepine [Tegretol -] 400 mg GT AM 11/23/17 Carbamazepine [Tegretol -] 400 mg GT HS 11/23/17 Clobazam [Onfi -] 5 mg GT AM 11/23/17 Clobazam [Onfi -] 10 mg GT HS 11/23/17 Diazepam [Diastat] 2.5 mg RC ONCE PRN 11/23/17 Fluticasone Prop 0.05% Nasal 2 spray NS HS 11/23/17 [Flonase -] Lorazepam [Ativan] 1 mg GT ASDIR PRN 11/23/17 Polyethylene Glycol 3350 [Miralax 17 gm GT ASDIR 11/23/17 119 gm Btl -] Rufinamide [Banzel] 1,600 mg GT BID 11/23/17 Topiramate [Qudexy Xr] 200 mg GT AM 11/23/17 Topiramate [Qudexy Xr] 400 mg GT HS 11/23/17 Zonisamide [Zonegran -] 50 mg GT HS 11/23/17 Zonisamide [Zonegran] 200 mg GT TID 11/23/17 REVIEW OF SYSTEMS unable to obtain. PHYSICAL EXAMINATION Vital Signs - 24 hr 02/13/18 02/14/18 02/14/18 22:09 01:14 02:55 Temperature 97.6 F 98.2 F Pulse Rate 103 H 106 H Pulse Rate [ 89 106 H Right Apical] Respiratory 18 16 19 Rate Blood Pressure 116/76 Blood Pressure 126/85 127/87 [Right Arm] O2 Sat by Pulse 100 99 100 Oximetry (%) 02/14/18 03:28 Temperature 97.3 F L Pulse Rate Pulse Rate [ Right Apical] Respiratory Rate Blood Pressure Blood Pressure [Right Arm] O2 Sat by Pulse Oximetry (%) GENERAL: Awake, alert, in no acute distress. HEAD: Normal with no signs of trauma. EYES: Pupils equal, round and reactive to light, extraocular movements intact, sclera anicteric, conjunctiva clear. No lid lag. EARS, NOSE, THROAT: Ears normal, nares patent, oropharynx with dry protruding tongue. Moist mucous membranes. NECK: Normal range of motion, supple without lymphadenopathy, JVD, or masses. LUNGS: b/l rhonchi with basilar crackles HEART: Regular rate and rhythm, normal S1 and S2 without murmur, rub or gallop. ABDOMEN: Soft, nontender, not distended, normoactive bowel sounds, no guarding peg tube in place insertion site clean and intact. MUSCULOSKELETAL: contracted upper and lower extremities. muscular atrophy in b/ l le. UPPER EXTREMITIES: 2+ radial pulses, warm, well-perfused. No peripheral edema. LOWER EXTREMITIES: 2+ DP pulses, warm, well-perfused. No peripheral edema. NEUROLOGICAL: facial symmetry, nonverbal, noncommunicative Laboratory Results - last 24 hr 02/13/18 02/13/18 02/13/18 23:40 23:40 23:40 WBC 10.1 H RBC 5.08 Hgb 16.4 Hct 47.9 D MCV 94.2 MCH 32.3 MCHC 34.3 RDW 14.1 Plt Count 206 D MPV 7.2 L Absolute Neuts (auto) 7.9 Neutrophils % 78.3 D Lymphocytes % 16.6 D Monocytes % 4.8 Eosinophils % 0.2 D Basophils % 0.1 Nucleated RBC % 0 PT with INR 12.50 INR 1.11 H PTT (Actin FS) 48.9 H VBG pH 7.33 POC VBG pCO2 50.9 POC VBG pO2 53.2 H D Mixed VBG HCO3 25.8 H Sodium Potassium Chloride Carbon Dioxide Anion Gap BUN Creatinine Creat Clearance w eGFR Random Glucose Lactic Acid Calcium Total Bilirubin AST ALT Alkaline Phosphatase Troponin I Total Protein Albumin 02/13/18 02/13/18 02/13/18 23:40 23:40 23:40 WBC RBC Hgb Hct MCV MCH MCHC RDW Plt Count MPV Absolute Neuts (auto) Neutrophils % Lymphocytes % Monocytes % Eosinophils % Basophils % Nucleated RBC % PT with INR INR PTT (Actin FS) VBG pH POC VBG pCO2 POC VBG pO2 Mixed VBG HCO3 Sodium 133 L Potassium 4.4 Chloride 97 L Carbon Dioxide 26 Anion Gap 10 BUN 7 Creatinine 0.4 L Creat Clearance w eGFR > 60 Random Glucose 92 Lactic Acid 0.6 Calcium 8.9 Total Bilirubin 0.3 AST 27 ALT 42 D Alkaline Phosphatase 240 H Troponin I < 0.02 Total Protein 8.8 H Albumin 4.3 Active Medications Bisacodyl (Dulcolax Suppository -) 10 mg RC ASDIR PRN PRN Reason: CONSTIPATION Carbamazepine (Tegretol -) 300 mg GT ASDIR BRAD Carbamazepine (Tegretol -) 400 mg GT AM BRAD Carbamazepine (Tegretol -) 400 mg GT HS BRAD Clobazam (Onfi -) 5 mg GT AM BRAD Clobazam (Onfi -) 10 mg GT HS BRAD Diazepam (Diastat *Pediatric Rectal Gel* -) 2.5 mg RC ONCE PRN PRN Reason: seizure Fluticasone Propionate (Flonase -) 2 spray NS HS BRAD Heparin Sodium (Porcine) (Heparin -) 5,000 unit SQ Q8H BRAD Lorazepam (Ativan -) 1 mg GT ASDIR PRN PRN Reason: seizure Non-Formulary Medication (Rufinamide [Banzel]) 1,600 mg GT BID BRAD Non-Formulary Medication (Topiramate [Qudexy Xr]) 200 mg GT AM BRAD Non-Formulary Medication (Topiramate [Qudexy Xr]) 400 mg GT HS BRAD Pantoprazole Sodium (Protonix Packets For Oral Suspension -) 40 mg NGT DAILY BRAD Polyethylene Glycol (Miralax (For Daily Use) -) 17 gm GT ASDIR BRAD Zonisamide (Zonegran -) 200 mg GT TID BRAD Zonisamide (Zonegran -) 50 mg GT HS BRAD ASSESSMENT/PLAN: 28 yr old man with epilepsy, CR, admitted for hypoxia and congestion evaluation. reported fever at NH. #Hypoxia could be due to pneumonia, pneumonitis, PE - cxy without clear infiltrate, consult for pulm and ID for further evaluation and abx coverage due to allergies. - check d-dimer to r/o PE, may need CTA if elevated - elevate HOB, ppi to prevent aspiration pneumonitis - given 1 dose levaquin in ED, id eval to consider continuation of abx #continue home medications for epilepsy/CP - lorazepam 1mg prn after seizure via gt as needed - onfi 5mg tab via gtube in the am - carbamazepine 400mg via gt in vikas AM, 300mg at noon, 400mg at HS - banzel 1600mg via gt every 12 hrs - zonisamide 50mg 1 capsule via gt at HS - zonisamide 100mg cap, 2 caps via gt TID - topamax 100mg in the AM - continue home medications: - ipratroprium .02% QID via nebs - fluticasone nasal spray - chronic constipation - miralax Diet: asdir in paperwork from [facility] vanilla 250ml (6cans) slow bolus 6 times a day with 48ounces of total water - may need to discuss with dietary for instructions while inpatient and available feeding. DVT; heparin TID Visit type - Emergency Visit Emergency Visit: Yes ED Registration Date: 02/14/18 Care time: The patient presented to the Emergency Department on the above date and was hospitalized for further evaluation of their emergent condition. - New Patient This patient is new to me today: Yes Date on this admission: 02/14/18 - Critical Care Critical Care patient: No Hospitalist Screening - Colonoscopy Questionnaire Colonoscopy Questionnaire: Colonoscopy Questionnaire - Patient: 50 - 75 years old and never had a screening colonoscopy: No History of colon or rectal polyps, or CA: Unknown History of IBD, Crohn's disease or UC: Unknown History of abdominal radiation therapy as a child: Unknown - Relative: 1 with colon or rectal CA, or polyps at age 60 or younger: Unknown Colon or rectal CA diagnosed at age 45 or younger: Unknown Multiple relatives with colon or rectal CA: Unknown - Outcome: Screening Result: Negative Screen
--- NOTE | 2018-02-14 04:40 | PN ---
Teaching Attending Note Name of Resident: Bogdan Barnhart ATTENDING PHYSICIAN STATEMENT I saw and evaluated the patient. I reviewed the resident's note and discussed the case with the resident. I agree with the resident's findings and plan as documented. SUBJECTIVE: Patient is a 28 year old man with significant past medical history of CP, MR, autism, frequent pneumonia, epilepsy, who presents to the ER from [place] to be evaluated for difficulty breathing (decreased O2 sat at 92%), O2 desaturation and sounding "congested" as per the facility. As per patients team primary care physician at bedside, the patient was febrile at the facility. History is limited due to patients status, and the patients team primary care physician came on duty when the ambulance was arriving. The patient is nonresponsive and contracted at baseline. OBJECTIVE: Awake. Contracted. Nonverbal and unable to follow commands. Vital Signs Period Temp Pulse Resp BP Sys/Grossman Pulse Ox Last 24 Hr 97.3 F-98.2 F 89-106 16-19 116-127/76-87 99-100 HEENT: No Jaundice, eye redness or discharge, PERRLA, EOMI. Normocephalic, atraumatic. External ears are normal and hearing is grossly intact. No nasal discharge. Neck: Supple, nontender. No palpable adenopathy or thyromegaly. No JVD Chest: Good effort. Clear to auscultation and percussion. Heart: Regular. No S3, rub or murmur Abdomen: Not distended, soft, nontender and no HSM. PEG in place. No rebound or guarding. Normoactive bowel sounds. Ext: Peripheral pulses intact. No leg edema. Skin: Warm and dry. No petechiae, rash or ecchymosis. Neuro: Nonverbal. Limb contractures. Home Medications Medication Instructions Recorded Bisacodyl Suppository [Dulcolax 10 mg RC ASDIR PRN 11/23/17 Suppository -] Carbamazepine [Tegretol -] 300 mg GT ASDIR 11/23/17 Carbamazepine [Tegretol -] 400 mg GT AM 11/23/17 Carbamazepine [Tegretol -] 400 mg GT HS 11/23/17 Clobazam [Onfi -] 5 mg GT AM 11/23/17 Clobazam [Onfi -] 10 mg GT HS 11/23/17 Diazepam [Diastat] 2.5 mg RC ONCE PRN 11/23/17 Fluticasone Prop 0.05% Nasal 2 spray NS HS 11/23/17 [Flonase -] Lorazepam [Ativan] 1 mg GT ASDIR PRN 11/23/17 Polyethylene Glycol 3350 [Miralax 17 gm GT ASDIR 11/23/17 119 gm Btl -] Rufinamide [Banzel] 1,600 mg GT BID 11/23/17 Topiramate [Qudexy Xr] 200 mg GT AM 11/23/17 Topiramate [Qudexy Xr] 400 mg GT HS 11/23/17 Zonisamide [Zonegran -] 50 mg GT HS 11/23/17 Zonisamide [Zonegran] 200 mg GT TID 11/23/17 Abnormal Lab Results 02/13/18 02/13/18 02/13/18 23:40 23:40 23:40 WBC 10.1 H MPV 7.2 L INR 1.11 H PTT (Actin FS) 48.9 H POC VBG pO2 53.2 H D Mixed VBG HCO3 25.8 H Sodium Chloride Creatinine Alkaline Phosphatase Total Protein 02/13/18 23:40 WBC MPV INR PTT (Actin FS) POC VBG pO2 Mixed VBG HCO3 Sodium 133 L Chloride 97 L Creatinine 0.4 L Alkaline Phosphatase 240 H Total Protein 8.8 H ASSESSMENT AND PLAN: 1. Aspiration Pneumonitis - CXR does not show any acute abnormalities. In view of fever reported by jail staff, desaturation and mild leukocytosis, will treat with Vancomycin and Aztreonam. Ensure adequate head elevation to minimize risk of aspiration and treat with IV protonix. O2 sat improved with nasal canula, but PE is still a possible consideration. Will get D-dimer, consult Pulmonary and ID. Continue comprehensive care for CP, epilepsy, MR and ensure adequate nutrition. 2. DVT prophylaxis - Lovenox 40 mg SQ q 24 hours. 3. Advance directives - Full code
[2018-02-14] MEDS ORDERED: LORazepam 1 MG TABLET GT PRN ×3 (05:11→10:05)
[2018-02-14] MEDS ORDERED: BISACODYL 10 MG SUPP.RECT RC PRN ×2 (05:11→06:12)
[2018-02-14] MEDS ORDERED: diazePAM 2.5 MG PEDIATRIC RECTAL APP GEL RC PRN (05:11)
[2018-02-14] MEDS ORDERED: POLYETHYLENE GLYCOL 3350 119 GM BTL GT SCH (05:15)
[2018-02-14] MEDS ORDERED: carBAMazepine 200 MG TABLET GT SCH ×3 (05:15→22:00)
[2018-02-14 05:41] LABS: URINE APPEARANCE SLCLOUDY; URINE BILIRUBIN NEGATIVE (<2.0 mg/dL); URINE COLOR DKYELLOW; URINE GLUCOSE (UA) NEGATIVE (NEGATIVE); URINE KETONE NEGATIVE (NEGATIVE); URINE LEUK ESTERASE TRACE (NEGATIVE); URINE NITRITE NEGATIVE (NEGATIVE); URINE PROTEIN NEGATIVE (NEGATIVE); URINE UROBILINOGEN NEGATIVE mg/dL (0.2-1.0)
[2018-02-14 05:55] LABS: EPI CELLS RARE /HPF (FEW); URINE BACTERIA RARE /hpf (NONE SEEN); URINE HYALINE CAST 1 /lpf; URINE MUCUS FEW
[2018-02-14] MEDS ORDERED: IPRATROPIUM BR 0.02% 0.5 MG/2.5 ML VIAL.NEB. NEB PRN (05:59)
[2018-02-14] MEDS ORDERED: ZONISAMIDE 100 MG CAPSULE GT SCH (06:00)
[2018-02-14] MEDS: HEPARIN NA (PORCINE) 5,000 UNITS/ML 1ML VIAL SQ SCH ×3 (06:22→22:56)
[2018-02-14] MEDS: cloBAZam 10 MG TABLET GT SCH ×2 (06:23→22:38)
[2018-02-14] MEDS: carBAMazepine 200 MG TABLET GT SCH ×3 (06:41→22:57)
[2018-02-14] MEDS ORDERED: TOPIRAMATE 200 MG GT SCH (07:00)
[2018-02-14] MEDS: IPRATROPIUM BR 0.02% 0.5 MG/2.5 ML VIAL.NEB. NEB SCH ×4 (07:30→20:40)
[2018-02-14 09:57] LABS: ALBUMIN 3.9 g/dl (3.4-5.0); ANION GAP 12 MMOL/L (8-16); BLOOD UREA NITROGEN 9 mg/dL (7-18); CALCIUM 8.8 mg/dL (8.5-10.1); CHLORIDE 98 mmol/L (98-107); CO2 25 mmol/L (21-32); CREATININE 0.4 mg/dL (0.7-1.3); GLUCOSE,RANDOM 93 mg/dL (74-106); POTASSIUM 4.3 mmol/L (3.5-5.1); SGOT/AST 22 U/L (15-37); SGPT/ALT 38 U/L (12-78); SODIUM 135 mmol/L (136-145)
[2018-02-14 09:59] LABS: ALK PHOS 221 U/L (45-117); BILIRUBIN,TOTAL 0.5 mg/dL (0.2-1.0); TOT PROT 7.9 g/dl (6.4-8.2)
[2018-02-14 10:00] LABS: BASO % 0.4 % (0-2.0); EOS % 0.4 % (0-4.5); HEMATOCRIT 44.7 % (35.4-49); HEMOGLOBIN 14.4 GM/dL (11.7-16.9); LYMPH % 12.1 % (8-40); MCH 31.1 pg (25.7-33.7); MCHC 32.2 g/dl (32.0-35.9); MEAN CELL VOLUME 96.6 fl (80-96); MEAN PLT VOLUME 7.9 fl (7.5-11.1); MONO % 5.3 % (3.8-10.2); NEUT % 81.8 % (42.8-82.8); PLATELET COUNT 193 K/MM3 (134-434); RBC 4.63 M/mm3 (4.00-5.60); RDW 14.3 % (11.9-15.9)
[2018-02-14] MEDS ORDERED: RUFINAMIDE GT SCH (10:00)
[2018-02-14] MEDS: POLYETHYLENE GLYCOL 3350 119 GM BTL GT SCH (10:47)
[2018-02-14] MEDS: PANTOPRAZOLE SOD 40 MG SUSPENSION PACKET NGT SCH (10:47)
--- NOTE | 2018-02-14 12:01 | EKG ---
Test Reason : Blood Pressure : / mmHG Vent. Rate : 102 BPM Atrial Rate : 102 BPM P-R Int : 162 ms QRS Dur : 098 ms QT Int : 344 ms P-R-T Axes : 043 147 038 degrees QTc Int : 448 ms SINUS TACHYCARDIA BIATRIAL ENLARGEMENT RIGHT AXIS DEVIATION PULMONARY DISEASE PATTERN INCOMPLETE RIGHT BUNDLE BRANCH BLOCK RIGHT VENTRICULAR HYPERTROPHY ABNORMAL ECG WHEN COMPARED WITH ECG OF 22-NOV-2017 18:22, COMPARED TO EKG NO SIGNIFICANT CHANGE IS FOUND Confirmed by MILAN COYNE MD ([id number]) on 02/14/2018 12:01:08 PM Referred By: Confirmed By:MILAN COYNE MD
[2018-02-14] MEDS ORDERED: CLINDAMYCIN 300 MG PREMIX IVPB 300 MG/50 ML BAG IVPB SCH (12:30)
[2018-02-14 12:35] VITALS: BMI 25.2
--- NOTE | 2018-02-14 12:47 | PN ---
Physical Exam: SUBJECTIVE: Patient seen and examined at bedside. Per nurse, no acute events overnight. Afebrile, no sob. Satting well in 96-97% on 2L NC. OBJECTIVE: Vital Signs Temperature 99.1 F 02/14/18 10:45 Pulse Rate 103 H 02/14/18 10:45 Respiratory Rate 19 02/14/18 10:45 Blood Pressure 117/69 02/14/18 10:45 O2 Sat by Pulse Oximetry (%) 96 02/14/18 05:10 GENERAL: Awake, alert, in no acute distress. HEAD: Normal with no signs of trauma. EYES: EOMI. EARS, NOSE, THROAT: Ears normal, nares patent, oropharynx with dry protruding tongue. Moist mucous membranes. NECK: No JVD or masses noted. LUNGS: CTA B/L. Symmetric chest rise. HEART: Regular rate and rhythm, normal S1 and S2 without murmur, rub or gallop. ABDOMEN: Soft, nontender, not distended, normoactive bowel sounds, no guarding G -tube in place insertion site, mild erythema around site. MUSCULOSKELETAL: contracted upper and lower extremities. muscular atrophy in b/ l le. UPPER EXTREMITIES: 2+ radial pulses, warm, well-perfused. No cyanosis. No clubbing. No peripheral edema. RUE with cellulitis extending from antecubital fossa proximally and distally. LOWER EXTREMITIES: 2+ DP pulses, warm, well-perfused. No calf tenderness. No peripheral edema. NEUROLOGICAL: facial symmetry SKIN: Warm, dry, normal turgor, no rashes or lesions noted, normal capillary refill. CBC, BMP 02/14/18 09:40 02/14/18 09:40 Hepatic Panel Total Bilirubin 0.5 mg/dL (0.2-1.0) 02/14/18 09:40 AST 22 U/L (15-37) 02/14/18 09:40 ALT 38 U/L (12-78) 02/14/18 09:40 Alkaline Phosphatase 221 U/L (45-117) H D 02/14/18 09:40 Albumin 3.9 g/dl (3.4-5.0) 02/14/18 09:40 Active Medications Bisacodyl (Dulcolax Suppository -) 10 mg RC DAILY PRN PRN Reason: CONSTIPATION Carbamazepine (Tegretol -) 300 mg GT DAILY@1200 BRAD Last Admin: 02/14/18 11:19 Dose: 300 mg Carbamazepine (Tegretol -) 400 mg GT BID@0700,2200 [facility] Last Admin: 02/14/18 06:41 Dose: Not Given Clobazam (Onfi -) 5 mg GT AM [facility] Last Admin: 02/14/18 06:23 Dose: 5 mg Clobazam (Onfi -) 10 mg GT HS [facility] Diazepam (Diastat *Pediatric Rectal Gel* -) 2.5 mg RC ONCE PRN PRN Reason: seizure Fluticasone Propionate (Flonase -) 2 spray NS HS BRAD Heparin Sodium (Porcine) (Heparin -) 5,000 unit SQ TID [facility] Last Admin: 02/14/18 14:14 Dose: 5,000 unit Aztreonam 1 gm/ Dextrose 50 mls @ 100 mls/hr IVPB Q8H-IV [facility]; Protocol Last Admin: 02/14/18 15:06 Dose: 100 mls/hr Clindamycin Phosphate (Cleocin 600 Mg Premix Ivpb -) 600 mg in 50 mls @ 100 mls /hr IVPB Q8H-[facility]; Protocol Last Admin: 02/14/18 14:14 Dose: 100 mls/hr Ipratropium [place] (Atrovent 0.02% Nebulizer -) 1 amp NEB RQID [facility] Stop: 02/14/18 20:01 Last Admin: 02/14/18 11:35 Dose: 1 amp Lorazepam (Ativan -) 1 mg GT DAILY PRN PRN Reason: seizure Multi-Ingredient Ointment (Zinc Oxide) 1 applic TP BID [facility] Last Admin: 02/14/18 15:06 Dose: 1 applic Non-Formulary Medication (Rufinamide [Banzel]) 1,600 mg GT BID [facility] Non-Formulary Medication (Topiramate [Qudexy Xr]) 200 mg GT AM [facility] Non-Formulary Medication (Topiramate [Qudexy Xr]) 400 mg GT HS [facility] Nystatin (Mycostatin Cream -) 1 applic TP BID BRAD Pantoprazole Sodium (Protonix Packets For Oral Suspension -) 40 mg NGT DAILY [facility] Last Admin: 02/14/18 10:47 Dose: 40 mg Polyethylene Glycol (Miralax (For Daily Use) -) 17 gm GT DAILY [facility] Last Admin: 02/14/18 10:47 Dose: 17 grams Zonisamide (Zonisamide) 50 mg GT HS BRAD Zonisamide (Zonisamide) 200 mg GT TID BRAD Last Admin: 02/14/18 14:10 Dose: 200 mg IMAGING: CXR: Since prior chest x-ray dated 11/24/2017, there remains mild bilateral increased lung markings without gross evidence of focal airspace disease. No interval change since prior. ASSESSMENT/PLAN: 28 yr old man with epilepsy, CR, admitted for hypoxia and congestion evaluation reported fever at [place]. #Sepsis, likely Aspiration PNA; Pt presented with sob, d-Dimer was normal, PE ruled out. Pt has history of aspiration pna, has daily seizures, and has functional quadriplegia - -Clindamycin 600 mg 100cc/hr Q8H IVPB (Day 1) -Aztreonam 50 cc @ 100cc/hr (Day 1) -Pantoprazole 40 mg NGT QD -Ipratroprium .02% QID via nebs -Fluticasone nasal spray -f/u blood and urine cx -f/u ID (Dr. Benoit) and pulm (Dr. Chruch) recs #Epilepsy/Cerebral Palsy -Lorazepam 1 mg PO PRN after seizure lasting >3 min via GT as needed -Clozabam 5 mg GT AM 10 mg GT HS -Carbamazepine 400 mg GT AM, 300 mg at noon, 400mg at HS -Banzel 1600mg GT Q12H -Zonisamide 50mg 1 capsule GT at HS -Zonisamide 100mg cap, 2 caps GT TID -Topiramate 100mg in the AM #Cellulitis; rash is marked on RUE, seen erythematous and warm. G tube site and pannus also with mild erythema. -Pt is already on antibiotics for aspiration PNA, will cover skin infection -cont to monitor -IV access removed and placed on L arm -Nystatin TP BID and Zinc oxide TP placed at G tube site. -Nystatin TP area of pannus #chronic constipation -Miralax 40 mg NGT QD #DVT -Heparin 5000U QD TID #FEN -no IVf -recheck lytes in AM -Tube Feed Promote dispo -Pt comes from [facility] Visit type - Emergency Visit Emergency Visit: Yes ED Registration Date: 02/14/18 Care time: The patient presented to the Emergency Department on the above date and was hospitalized for further evaluation of their emergent condition. - New Patient This patient is new to me today: Yes Date on this admission: 02/14/18 - Critical Care Critical Care patient: No
--- NOTE | 2018-02-14 12:54 | PN ---
Progress Note (short form) - Note Progress Note: ID Consult dictated Probable aspiration pneumonia Possible sepsis secondary to pneumonia PCN/CP allergies CP/MR ? Bilateral UE cellulitis Await c/s Continue empiric clindamycin/ aztreonam Aspiration precautions
--- NOTE | 2018-02-14 13:14 | PN ---
Progress Note (short form) - Note Progress Note: PULMONARY CONSULTATION DICTATED 02/14/18 IMP ACUTE HYPOXEMIC/HYPERCAPNEIC RESPIRATORY FAILURE LIKELY PNEUMONIA ? ASPIRATION CEREBRAL PALSY SEVERE MENTAL RETARDATION SEIZURE DISORDER PLAN ABX PER ID O2 TO MAINTAIN O2 SAT 90% OR GREATER INHALED BRONCHODILATORS SHORT COURSE OF STEROIDS CULTURES F/U CHEST X-RAY DR ENGLAND Problem List - Problems (1) Acute respiratory failure with hypoxia and hypercapnia Code(s): J96.01 - ACUTE RESPIRATORY FAILURE WITH HYPOXIA; J96.02 - ACUTE RESPIRATORY FAILURE WITH HYPERCAPNIA (2) Respiratory distress Code(s): R06.03 - ACUTE RESPIRATORY DISTRESS (3) Cerebral palsy Code(s): G80.9 - CEREBRAL PALSY, UNSPECIFIED Qualifiers: Cerebral palsy type: unspecified type Qualified Code(s): G80.9 - Cerebral palsy, unspecified (4) Hypoxia Code(s): R09.02 - HYPOXEMIA (5) Functional quadriplegia Code(s): R53.2 - FUNCTIONAL QUADRIPLEGIA (6) PNA (pneumonia) Code(s): J18.9 - PNEUMONIA, UNSPECIFIED ORGANISM Qualifiers: Pneumonia type: due to unspecified organism Laterality: unspecified laterality Lung location: unspecified part of lung Qualified Code(s): J18.9 - Pneumonia, unspecified organism (7) Seizure Code(s): R56.9 - UNSPECIFIED CONVULSIONS
--- NOTE | 2018-02-14 13:30 | CONS ---
DATE OF CONSULTATION: DATE OF DICTATION: 02/14/2018 HISTORY: The patient is a 28-year-old male with a history of cerebral palsy, mental retardation resident of [facility] evaluated for recurrent pneumonia. History was obtained from the chart as he cannot give a history secondary to developmental delay. He was noted at the nursing facility to have shortness of breath and congestion. He was also reported to have fever. O2 saturations recorded at the facility showed an O2 saturation of 84-86 on room air. He was transferred to [facility] where he was evaluated in the emergency room. Chest x-ray shows increased markings right lower lung field. The x-ray is rotated, and a pacemaker overlies part of the left lung field. No reports of purulent sputum production of hemoptysis. No shaking chills reported. The patient was hospitalized in November of this year for suspected recurrent aspiration pneumonia. PAST MEDICAL HISTORY: Positive for cerebral palsy, mental retardation, seizure disorder. PAST SURGICAL HISTORY: Status post vagal stimulator, feeding gastrostomy. ALLERGIES: CEPHALOSPORINS, PENICILLINS, and LATEX. The nature of the PENICILLIN allergy and CEPHALOSPORIN allergy not known. MEDICATIONS: Include clindamycin, Azactam, heparin, Tegretol, Onfi, Ativan, Flonase, Protonix. SOCIAL HISTORY: skilled nursing resident. Dependent activities of daily living. No active tobacco or alcohol use. SYSTEMS REVIEW: Neurologic: Positive for cerebral palsy, mental retardation. Cardiac: Negative chest pain or palpitations. Respiratory: As per HPI. Gastrointestinal: Status post feeding gastrostomy. Genitourinary: Negative for urinary tract infection. LABORATORY DATA: White count 12, hematocrit 44.7, platelet count 193, BUN 9, creatinine 0.4. Urinalysis: 21 white cells. Chest x-ray as mentioned. PHYSICAL EXAMINATION: General: He is awake, alert. He is nonverbal at baseline. Breathing is nonlabored. He is congested with occasional cough. Vital Signs: Temperature 97.5, blood pressure 107/71, pulse 101 and regular, respirations 20 per minute. HEENT: Sclerae anicteric. Heart: Sounds S1, S2. Lungs: Diminished breath sounds bilaterally. Poor inspiratory effort. Abdomen: Soft. No tenderness elicited. No mass, rebound, or rigidity. Feeding gastrostomy tube is in place. Extremities: Negative for edema. There is confluent erythema present on the upper extremities bilaterally, right greater than left. It is unclear whether these were related to phlebotomy or previous IV sites. IMPRESSION: 1. Probable recurrent aspiration pneumonia. 2. Possible sepsis secondary to pneumonia. 3. PENICILLIN and CEPHALOSPORIN allergies. 4. Cerebral palsy, mental retardation. 5. Possible bilateral upper extremity cellulitis. PLAN: Continue empiric antibiotic coverage in this PENICILLIN-allergic patient with clindamycin and Azactam. The patient has been given a dose of vancomycin. Further recommendations pending cultures. Obtain sputum culture, urine Legionella antigen. Aspiration pneumonia. We will follow. Thank you for the kind referral. ALFRED WALLS M.D. [id number]
[2018-02-14] MEDS: ZONISAMIDE 100 MG/10 ML ORAL SUSPENSION GT SCH ×2 (14:10→22:58)
[2018-02-14] MEDS: CLINDAMYCIN 600MG PREMIX IVPB 600 MG/50 ML BAG IVPB SCH ×2 (14:14→17:36)
[2018-02-14] MEDS ORDERED: CLINDAMYCIN IVPB 300 MG in DEXTROSE 5%-WATER - 48 ML IVPB SCH (15:00)
[2018-02-14] MEDS: AZTREONAM 1 GM in DEXTROSE 5%-WATER - 50 ML IVPB SCH ×2 (15:06→18:28)
[2018-02-14] MEDS: ZINC OXIDE 20% TOPICAL OINTMENT 30 GM TUBE TP SCH ×2 (15:06→22:39)
--- NOTE | 2018-02-14 15:17 | CONS ---
DATE OF CONSULTATION: 02/14/2018 REFERRING PHYSICIAN: Chacha Wahl MD HISTORY: History is obtained from medical records. The patient is a 28-year- old white male with a past medical history of cerebral palsy, mental retardation, recurrent pneumonia, G-tube, seizure disorder, a resident of [facility] transferred to [facility] secondary to respiratory distress and chest congestion. Apparently at the long-term, the patient was very congested. He was suctioned, and an O2 saturation was 84%-86% on room air. He was placed on 6 L of O2 with improvement of saturation to 92%. The patient was transferred to [facility] with the above. In the emergency room, he was started on antibiotic therapy, inhaled bronchodilators, and transferred to medical floor for further management. He was evaluated by Dr. Benoit for Infectious Disease and placed on Azactam and clindamycin pending possible aspiration pneumonia. PAST MEDICAL HISTORY: Again, includes cerebral palsy, severe mental retardation , recurrent pneumonias as well as seizure disorder, autism. PAST SURGICAL HISTORY: G-tube. MEDICATIONS: Include benzodiazepines, Azactam, clindamycin, heparin subcutaneous, Tegretol, Clobazam, lorazepam, MiraLAX, Flonase, Atrovent, zinc oxide, Protonix. PHYSICAL EXAMINATION: General: The patient is a well-developed male, awake, nonverbal, in no acute respiratory distress. Vital Signs: He is currently afebrile. Blood pressure is 117/69, respiratory rate 16, O2 saturation is 96% on 2 L. HEENT: Normocephalic and atraumatic. Neck: Supple. Heart: Tachycardic with S1, S2. Chest: Bilateral rhonchi. Abdomen: Soft. Bowel sounds positive. Extremities: No cyanosis or edema. LABORATORIES: WBC is 12, hemoglobin 14.4, hematocrit 44.7 with a platelet count of 193,000. Venous blood gas 7.33, PCO2 of 50, PO2 of 53, PTT 48, INR 1.11, BUN 9, creatinine 0.4. Chest x-ray: No acute infiltrates or effusions, although increased markings bilaterally. IMPRESSION: 1. Acute hypoxemic, hypercapnic respiratory failure secondary to likely pneumonia, likely aspiration. 2. Severe mental retardation. 3. Cerebral palsy. 4. Seizure disorder. PLAN: Broad-spectrum antibiotics as per Infectious Disease. Inhaled bronchodilators. Supplemental O2 to maintain O2 saturation of 90% or greater. Obtain followup chest x-ray. Obtain cultures. [facility] [id number] x24 hours. MARNI ENGLAND M.D. KATLYN/[id number] MTDD
--- NOTE | 2018-02-14 16:32 | PN ---
Teaching Attending Note Name of Resident: Sridevi Hawley ATTENDING PHYSICIAN STATEMENT I saw and evaluated the patient. I reviewed the resident's note and discussed the case with the resident. I agree with the resident's findings and plan as documented. SUBJECTIVE: unable to obtain hx. per Rn he had a seizure this am , for less than a min. per [place] [facility], he has break through seizures almost on a daily basis in [place]. OBJECTIVE: NAD, sleeping Cv: RRr, Lungs: CTAB Ext: erythema and increased warmth on R upper ext laterally ( upper arm and fore arm ) and L fore arm . Abd: soft, ND, NT, PEG tube in LUQ with excoriation around it , . ASSESSMENT AND PLAN: 28 y/o man with h/o seizure disorder, cerebral palsy, and mental retardation , and recurrent aspiration PN, who presented with fever , an hypoxia . 1- possible aspiration PNA: cxray reviewed, no infiltrate but poor quality due to position - clinda and aztreonam. - follow blood cx - sputum cx 2- b/l upper extremity cellulitis : - clinda and aztreonam will cover 3- seizure disorder: cont home meds. has seizure on a daily bases at his base line 4- Nutrition : TF per our hotel front office manager here nystatinand zinc oxide fro skin around PEG 5- elevated Alk phos, chronic , likely from bone source form immobilization 6- DVT px
[2018-02-14] MEDS ORDERED: PT OWN MED DRAWER 7, Y5N ONE ×2 (17:11→21:53)
[2018-02-14] MEDS: NYSTATIN 100,000 UNIT/GM TOPICAL CREAM 15 GM TUBE TP SCH ×2 (18:28→22:57)
[2018-02-14] MEDS ORDERED: ZONISAMIDE 100 MG/10 ML ORAL SUSPENSION GT SCH (22:00)
[2018-02-14] MEDS ORDERED: TOPIRAMATE 400 MG GT SCH (22:00)
[2018-02-14] MEDS: TOPIRAMATE 100 MG TABLET GT SCH (22:38)
[2018-02-14] MEDS: FLUTICASONE PROP 0.05% 16 GM NASAL SPRAY NS SCH (22:56)
[2018-02-15] MEDS: NYSTATIN 100000 UNIT/GM TOPICAL OINTMENT 15 GM TUBE TP SCH ×3 (00:05→21:45)
[2018-02-15] MEDS ORDERED: PT OWN MED DRAWER 7, Y5N ONE ×2 (01:45→10:12)
[2018-02-15] MEDS: AZTREONAM 1 GM in DEXTROSE 5%-WATER - 50 ML IVPB SCH ×2 (02:38→10:47)
[2018-02-15] MEDS: CLINDAMYCIN 600MG PREMIX IVPB 600 MG/50 ML BAG IVPB SCH ×2 (02:38→10:14)
[2018-02-15] MEDS: cloBAZam 10 MG TABLET GT SCH ×2 (06:36→21:42)
[2018-02-15] MEDS: HEPARIN NA (PORCINE) 5,000 UNITS/ML 1ML VIAL SQ SCH ×3 (06:37→21:41)
[2018-02-15] MEDS: ZONISAMIDE 100 MG/10 ML ORAL SUSPENSION GT SCH ×4 (06:37→21:44)
[2018-02-15] MEDS: TOPIRAMATE 100 MG TABLET GT SCH ×2 (06:38→21:43)
[2018-02-15] MEDS: carBAMazepine 200 MG TABLET GT SCH ×3 (06:38→21:42)
[2018-02-15 09:40] LABS: HEMATOCRIT 43.4 % (35.4-49); HEMOGLOBIN 14.3 GM/dL (11.7-16.9); MCH 31.5 pg (25.7-33.7); MEAN CELL VOLUME 95.7 fl (80-96); MEAN PLT VOLUME 7.9 fl (7.5-11.1); PLATELET COUNT 216 K/MM3 (134-434); RBC 4.54 M/mm3 (4.00-5.60); RDW 14.3 % (11.9-15.9); WHITE BLOOD COUNT 8.7 K/mm3 (4.0-10.0)
[2018-02-15 09:57] LABS: CHLORIDE 98 mmol/L (98-107); POTASSIUM 4.1 mmol/L (3.5-5.1); SODIUM 133 mmol/L (136-145)
[2018-02-15] MEDS: PANTOPRAZOLE SOD 40 MG SUSPENSION PACKET NGT SCH (10:13)
[2018-02-15] MEDS: ZINC OXIDE 20% TOPICAL OINTMENT 30 GM TUBE TP SCH ×2 (10:14→21:45)
[2018-02-15 10:27] LABS: ALBUMIN 3.7 g/dl (3.4-5.0); ALK PHOS 216 U/L (45-117); ANION GAP 13 MMOL/L (8-16); BILIRUBIN,TOTAL 0.4 mg/dL (0.2-1.0); BLOOD UREA NITROGEN 12 mg/dL (7-18); CALCIUM 8.5 mg/dL (8.5-10.1); CO2 22 mmol/L (21-32); CREATININE 0.5 mg/dL (0.7-1.3); GLUCOSE,RANDOM 86 mg/dL (74-106); SGOT/AST 20 U/L (15-37); SGPT/ALT 37 U/L (12-78); TOT PROT 7.8 g/dl (6.4-8.2)
--- NOTE | 2018-02-15 10:29 | PN ---
Progress Note, Physician History of Present Illness: pulmonary awake,less congested - Current Medication List Current Medications: Active Medications Bisacodyl (Dulcolax Suppository -) 10 mg RC DAILY PRN PRN Reason: CONSTIPATION Carbamazepine (Tegretol -) 300 mg GT DAILY@1200 [facility] Last Admin: 02/14/18 11:19 Dose: 300 mg Carbamazepine (Tegretol -) 400 mg GT BID@0700,2200 [facility] Last Admin: 02/15/18 06:38 Dose: 400 mg Clobazam (Onfi -) 5 mg GT AM [facility] Last Admin: 02/15/18 06:36 Dose: 5 mg Clobazam (Onfi -) 10 mg GT HS [facility] Last Admin: 02/14/18 22:38 Dose: 10 mg Diazepam (Diastat *Pediatric Rectal Gel* -) 2.5 mg RC ONCE PRN PRN Reason: seizure Fluticasone Propionate (Flonase -) 2 spray NS HS [facility] Last Admin: 02/14/18 22:56 Dose: 2 spray Heparin Sodium (Porcine) (Heparin -) 5,000 unit SQ TID [facility] Last Admin: 02/15/18 06:37 Dose: 5,000 unit Aztreonam 1 gm/ Dextrose 50 mls @ 100 mls/hr IVPB Q8H-IV [facility]; Protocol Last Admin: 02/15/18 02:38 Dose: 100 mls/hr Clindamycin Phosphate (Cleocin 600 Mg Premix Ivpb -) 600 mg in 50 mls @ 100 mls /hr IVPB Q8H-IV [facility]; Protocol Last Admin: 02/15/18 10:14 Dose: 100 mls/hr Vancomycin HCl (Vancomycin 1 Gm Premix -) 1 gm in 200 mls @ 133.333 mls/hr IVPB Q12H [facility]; Protocol Lorazepam (Ativan -) 1 mg GT DAILY PRN PRN Reason: seizure Multi-Ingredient Ointment (Zinc Oxide) 1 applic TP BID [facility] Last Admin: 02/15/18 10:14 Dose: 1 applic Non-Formulary Medication (Rufinamide [Banzel]) 1,600 mg GT BID [facility] Nystatin (Mycostatin Ointment -) 1 applic TP BID [facility] Last Admin: 02/15/18 10:14 Dose: 1 applic Pantoprazole Sodium (Protonix Packets For Oral Suspension -) 40 mg NGT DAILY [facility] Last Admin: 02/15/18 10:13 Dose: 40 mg Polyethylene Glycol (Miralax (For Daily Use) -) 17 gm GT DAILY [facility] Last Admin: 02/14/18 10:47 Dose: 17 grams Topiramate (Topamax -) 300 mg GT AM [facility] Last Admin: 02/15/18 06:38 Dose: 300 mg Topiramate (Topamax -) 400 mg GT HS [facility] Last Admin: 02/14/18 22:38 Dose: 400 mg Zonisamide (Zonisamide) 200 mg GT TID [facility] Last Admin: 02/15/18 06:37 Dose: 200 mg Zonisamide (Zonisamide) 50 mg GT HS [facility] - Objective Vital Signs: Vital Signs Temperature 97.7 F 02/15/18 07:50 Pulse Rate 100 H 02/15/18 07:50 Respiratory Rate 20 02/15/18 07:50 Blood Pressure 103/79 02/15/18 07:50 O2 Sat by Pulse Oximetry (%) 99 02/14/18 21:00 Constitutional: Yes: Well Nourished, Calm Eyes: Yes: WNL HENT: Yes: WNL Neck: Yes: WNL Cardiovascular: Yes: Regular Rate and Rhythm, S1, S2 Respiratory: Yes: Rhonchi (less rhonchi bilaterally) Gastrointestinal: Yes: Normal Bowel Sounds, Soft Extremities: Yes: Other (shortened) Edema: No Labs: CBC, BMP 02/15/18 09:30 02/15/18 09:30 INR, PTT INR 1.11 (0.83-1.09) H 02/13/18 23:40 Problem List - Problems (1) Acute respiratory failure with hypoxia and hypercapnia Code(s): J96.01 - ACUTE RESPIRATORY FAILURE WITH HYPOXIA; J96.02 - ACUTE RESPIRATORY FAILURE WITH HYPERCAPNIA (2) Respiratory distress Code(s): R06.03 - ACUTE RESPIRATORY DISTRESS (3) Cerebral palsy Code(s): G80.9 - CEREBRAL PALSY, UNSPECIFIED Qualifiers: Cerebral palsy type: unspecified type Qualified Code(s): G80.9 - Cerebral palsy, unspecified (4) Hypoxia Code(s): R09.02 - HYPOXEMIA (5) Functional quadriplegia Code(s): R53.2 - FUNCTIONAL QUADRIPLEGIA (6) PNA (pneumonia) Code(s): J18.9 - PNEUMONIA, UNSPECIFIED ORGANISM Qualifiers: Pneumonia type: due to unspecified organism Laterality: unspecified laterality Lung location: unspecified part of lung Qualified Code(s): J18.9 - Pneumonia, unspecified organism (7) Seizure Code(s): R56.9 - UNSPECIFIED CONVULSIONS Assessment/Plan IMP ACUTE HYPOXEMIC/HYPERCAPNEIC RESPIRATORY FAILURE LIKELY PNEUMONIA ? ASPIRATION CEREBRAL PALSY SEVERE MENTAL RETARDATION SEIZURE DISORDER PLAN ABX PER ID O2 TO MAINTAIN O2 SAT 90% OR GREATER INHALED BRONCHODILATORS SHORT COURSE OF STEROIDS F/U CHEST X-RAY DR ENGLAND Problem List - Problems (1) Acute respiratory failure with hypoxia and hypercapnia Code(s): J96.01 - ACUTE RESPIRATORY FAILURE WITH HYPOXIA; J96.02 - ACUTE RESPIRATORY FAILURE WITH HYPERCAPNIA (2) Respiratory distress Code(s): R06.03 - ACUTE RESPIRATORY DISTRESS (3) Cerebral palsy Code(s): G80.9 - CEREBRAL PALSY, UNSPECIFIED Qualifiers: Cerebral palsy type: unspecified type Qualified Code(s): G80.9 - Cerebral palsy, unspecified (4) Hypoxia Code(s): R09.02 - HYPOXEMIA (5) Functional quadriplegia Code(s): R53.2 - FUNCTIONAL QUADRIPLEGIA (6) PNA (pneumonia) Code(s): J18.9 - PNEUMONIA, UNSPECIFIED ORGANISM Qualifiers: Pneumonia type: due to unspecified organism Laterality: unspecified laterality Lung location: unspecified part of lung Qualified Code(s): J18.9 - Pneumonia, unspecified organism (7) Seizure Code(s): R56.9 - UNSPECIFIED CONVULSIONS
[2018-02-15] MEDS: POLYETHYLENE GLYCOL 3350 119 GM BTL GT SCH (10:48)
[2018-02-15] MEDS: methylPREDNISolone NA SUCC 40 MG/1 ML VIAL IVPUSH SCH ×2 (11:07→17:51)
[2018-02-15] MEDS: VANCOMYCIN 1 GM PREMIX - 1 GM/200 ML BAG IVPB SCH ×2 (11:20→21:41)
--- NOTE | 2018-02-15 11:49 | PN ---
Progress Note (short form) - Note Progress Note: congested Vital Signs Period Temp Pulse Resp BP Sys/Grossman Pulse Ox Last 24 Hr 97.7 F-99.3 F 97-112 19-20 100-119/65-88 99 cor-rrr lungs bilateral rhonchi erythema of arms resolved abd soft,nt ext no edema CBC, BMP 02/15/18 09:30 02/15/18 09:30 Microbiology 02/14/18 05:03 Urine - Urine - Catheterized Urine Culture - Preliminary Group D Strep Or Entero Coccus 02/13/18 23:45 Blood - Peripheral Venous Blood Culture - Preliminary Staphylococcus Species 02/13/18 23:40 Blood - Peripheral Venous Blood Culture - Preliminary Staphylococcus Species a/p suspected aspiration pneumonia gram positive bacteremia repeat blood cultures add vancomycin continue clindamycin and azactam pen/ceph allergies d/w hospitalist
--- NOTE | 2018-02-15 15:25 | PN ---
Teaching Attending Note Name of Resident: Sridevi Hawley ATTENDING PHYSICIAN STATEMENT I saw and evaluated the patient. I reviewed the resident's note and discussed the case with the resident. I agree with the resident's findings and plan as documented. SUBJECTIVE: No events over night. per his aid last night, rash on arms occurs every time when in hospital . OBJECTIVE: NAD, sleeping Cv: RRR Lungs: CTAB Ext: erythema on upper extremities has resolved . Abd: soft, ND, NT, PEG tube in LUQ with white powder around it ASSESSMENT AND PLAN: 28 y/o man with h/o seizure disorder, cerebral palsy, and mental retardation , and recurrent aspiration PN, who presented with fever , an hypoxia . 1- Pneumococcal PNA: - d/w Dr. Phipps, dc clinda and aztreonam. add levaquin - vanco for + blood cx for G+ coccin in clusters, possible contamination . repeat blood cx 2-Bacteruria : ? UTI . urine cx with group D strep. will follow final . on levaquin and vanco 3- seizure disorder: cont home meds. monitor on levaquin 4- Nutrition :cont TF and free water flushes nystatinand zinc oxide fro skin around PEG 5- elevated Alk phos, chronic: GGT elevated indicating liver source. possible meds effect 6- DVT px
--- NOTE | 2018-02-15 17:01 | PN ---
Physical Exam: SUBJECTIVE: Patient seen and examined at bedside. No acute events overnight. Pt still with breakthrough seizures daily, but controlled with seizure meds. OBJECTIVE: Vital Signs Temperature 98.6 F 02/15/18 15:42 Pulse Rate 107 H 02/15/18 15:42 Respiratory Rate 18 02/15/18 15:42 Blood Pressure 108/59 02/15/18 15:42 O2 Sat by Pulse Oximetry (%) 99 02/15/18 09:00 GENERAL: Awake, alert, in no acute distress. HEAD: Normal with no signs of trauma. EYES: EOMI. EARS, NOSE, THROAT: Ears normal, nares patent, oropharynx with dry protruding tongue. Moist mucous membranes. NECK: No JVD or masses noted. LUNGS: CTA B/L. Symmetric chest rise. HEART: Regular rate and rhythm, normal S1 and S2 without murmur, rub or gallop. ABDOMEN: Soft, nontender, not distended, normoactive bowel sounds, no guarding G -tube in place insertion site, mild erythema around site. MUSCULOSKELETAL: contracted upper and lower extremities. muscular atrophy in b/ l le. UPPER EXTREMITIES: 2+ radial pulses, warm, well-perfused. No cyanosis. No clubbing. No peripheral edema. RUE with cellulitis extending from antecubital fossa proximally and distally. LOWER EXTREMITIES: 2+ DP pulses, warm, well-perfused. No calf tenderness. No peripheral edema. NEUROLOGICAL: facial symmetry SKIN: Warm, dry, normal turgor, no rashes or lesions noted, normal capillary refill. CBC, BMP 02/15/18 09:30 02/15/18 09:30 Active Medications Bisacodyl (Dulcolax Suppository -) 10 mg RC DAILY PRN PRN Reason: CONSTIPATION Carbamazepine (Tegretol -) 300 mg GT DAILY@1200 [facility] Last Admin: 02/15/18 12:01 Dose: 300 mg Carbamazepine (Tegretol -) 400 mg GT BID@0700,2200 [facility] Last Admin: 02/15/18 06:38 Dose: 400 mg Clobazam (Onfi -) 5 mg GT AM [facility] Last Admin: 02/15/18 06:36 Dose: 5 mg Clobazam (Onfi -) 10 mg GT HS [facility] Last Admin: 02/14/18 22:38 Dose: 10 mg Diazepam (Diastat *Pediatric Rectal Gel* -) 2.5 mg RC ONCE PRN PRN Reason: seizure Fluticasone Propionate (Flonase -) 2 spray NS HS [facility] Last Admin: 02/14/18 22:56 Dose: 2 spray Heparin Sodium (Porcine) (Heparin -) 5,000 unit SQ TID [facility] Last Admin: 02/15/18 13:53 Dose: 5,000 unit Vancomycin HCl (Vancomycin 1 Gm Premix -) 1 gm in 200 mls @ 133.333 mls/hr IVPB Q12H [facility]; Protocol Last Admin: 02/15/18 11:20 Dose: 133.333 mls/hr Levofloxacin (Levaquin 500 Mg Premixed Ivpb -) 500 mg in 100 mls @ 100 mls/hr IVPB DAILY [facility]; Protocol Last Admin: 02/15/18 13:53 Dose: 100 mls/hr Lorazepam (Ativan -) 1 mg GT DAILY PRN PRN Reason: seizure Methylprednisolone Sodium Succinate (Solu-Medrol -) 40 mg IVPUSH Q8H-IV [facility] Last Admin: 02/15/18 17:51 Dose: 40 mg Multi-Ingredient Ointment (Zinc Oxide) 1 applic TP BID [facility] Last Admin: 02/15/18 10:14 Dose: 1 applic Non-Formulary Medication (Rufinamide [Banzel]) 1,600 mg GT BID [facility] Nystatin (Mycostatin Ointment -) 1 applic TP BID [facility] Last Admin: 02/15/18 10:14 Dose: 1 applic Pantoprazole Sodium (Protonix Packets For Oral Suspension -) 40 mg NGT DAILY [facility] Last Admin: 02/15/18 10:13 Dose: 40 mg Polyethylene Glycol (Miralax (For Daily Use) -) 17 gm GT DAILY [facility] Last Admin: 02/15/18 10:48 Dose: 17 grams Topiramate (Topamax -) 300 mg GT AM [facility] Last Admin: 02/15/18 06:38 Dose: 300 mg Topiramate (Topamax -) 400 mg GT HS [facility] Last Admin: 02/14/18 22:38 Dose: 400 mg Zonisamide (Zonisamide) 200 mg GT TID [facility] Last Admin: 02/15/18 13:55 Dose: 200 mg Zonisamide (Zonisamide) 50 mg GT HS [facility] IMAGING: CXR: Since prior chest x-ray dated 11/24/2017, there remains mild bilateral increased lung markings without gross evidence of focal airspace disease. No interval change since prior. ASSESSMENT/PLAN: 28 yr old man with epilepsy, CR, admitted for hypoxia and congestion evaluation reported fever at [place]. #Sepsis, likely Aspiration PNA; Pt presented with sob, d-Dimer was normal, PE ruled out. Pt has history of aspiration pna, has daily seizures, and has functional quadriplegia -Clindamycin 600 mg 100cc/hr Q8H IVPB (Day 2) -Aztreonam 50 cc @ 100cc/hr (Day 2) -Pantoprazole 40 mg NGT QD -Ipratroprium .02% QID via nebs -Fluticasone nasal spray -blood cx shows Gram + cocci in clusters, likely Staph. Per ID, pt started on Vancomycin for staph coverage -Vancomycin 1gm @ 133.33cc/hr -repeat blood cx #UTI; urine cx growing Group D strep/enterococcus -cont antibiotics currently ordered -f/u final c/s to evaluate antibiotic coverage #elevated alk phos; chronically elevated -GGT elevated indicating abnormal alk phos possibly due to hepatic causes -possibly due to meds #Epilepsy/Cerebral Palsy -Lorazepam 1 mg PO PRN after seizure lasting >3 min via GT as needed -Clozabam 5 mg GT AM 10 mg GT HS -Carbamazepine 400 mg GT AM, 300 mg at noon, 400mg at HS -Zonisamide 50mg 1 capsule GT at HS -Zonisamide 100mg cap, 2 caps GT TID -Topiramate 100mg in the AM #Erythema on R arm; erythema noted on R arm yesterday. Not seen on physical exam today although, R arm has warmth. -cont to monitor #chronic constipation -Miralax 40 mg NGT QD #DVT -Heparin 5000U QD TID #FEN -no IVf -recheck lytes in AM -Tube Feed Promote & free water flushes; Nystatin and Zinc oxide placed around G tube site dispo -Pt comes from [facility] Visit type - Emergency Visit Emergency Visit: Yes ED Registration Date: 02/14/18 Care time: The patient presented to the Emergency Department on the above date and was hospitalized for further evaluation of their emergent condition. - New Patient This patient is new to me today: No - Critical Care Critical Care patient: No
[2018-02-15] MEDS: FLUTICASONE PROP 0.05% 16 GM NASAL SPRAY NS SCH (21:41)
[2018-02-16] MEDS: methylPREDNISolone NA SUCC 40 MG/1 ML VIAL IVPUSH SCH ×3 (01:27→22:09)
[2018-02-16] MEDS: cloBAZam 10 MG TABLET GT SCH ×2 (06:23→22:09)
[2018-02-16] MEDS: HEPARIN NA (PORCINE) 5,000 UNITS/ML 1ML VIAL SQ SCH ×3 (06:24→22:08)
[2018-02-16] MEDS: ZONISAMIDE 100 MG/10 ML ORAL SUSPENSION GT SCH ×4 (06:24→22:09)
[2018-02-16] MEDS: carBAMazepine 200 MG TABLET GT SCH ×3 (06:24→22:11)
[2018-02-16] MEDS: TOPIRAMATE 100 MG TABLET GT SCH ×2 (06:24→22:10)
[2018-02-16 08:59] LABS: ANION GAP 10 MMOL/L (8-16); BLOOD UREA NITROGEN 12 mg/dL (7-18); CALCIUM 8.5 mg/dL (8.5-10.1); CHLORIDE 100 mmol/L (98-107); CO2 26 mmol/L (21-32); CREATININE 0.2 mg/dL (0.7-1.3); GLUCOSE,RANDOM 121 mg/dL (74-106); POTASSIUM 3.8 mmol/L (3.5-5.1); SODIUM 136 mmol/L (136-145)
[2018-02-16] MEDS ORDERED: PT OWN MED DRAWER 7, Y5N ONE ×2 (09:08→14:45)
[2018-02-16] MEDS: PANTOPRAZOLE SOD 40 MG SUSPENSION PACKET NGT SCH (09:33)
[2018-02-16] MEDS: POLYETHYLENE GLYCOL 3350 119 GM BTL GT SCH (09:33)
[2018-02-16] MEDS: VANCOMYCIN 1 GM PREMIX - 1 GM/200 ML BAG IVPB SCH ×2 (09:33→22:09)
[2018-02-16] MEDS: ZINC OXIDE 20% TOPICAL OINTMENT 30 GM TUBE TP SCH ×2 (09:50→22:08)
[2018-02-16] MEDS: NYSTATIN 100000 UNIT/GM TOPICAL OINTMENT 15 GM TUBE TP SCH ×2 (09:50→22:08)
--- NOTE | 2018-02-16 10:16 | PN ---
Progress Note, Physician History of Present Illness: pulmonary awake,-resp distress - Current Medication List Current Medications: Active Medications Bisacodyl (Dulcolax Suppository -) 10 mg RC DAILY PRN PRN Reason: CONSTIPATION Carbamazepine (Tegretol -) 300 mg GT DAILY@1200 [facility] Last Admin: 02/15/18 12:01 Dose: 300 mg Carbamazepine (Tegretol -) 400 mg GT BID@0700,2200 [facility] Last Admin: 02/16/18 06:24 Dose: 400 mg Clobazam (Onfi -) 5 mg GT AM [facility] Last Admin: 02/16/18 06:23 Dose: 5 mg Clobazam (Onfi -) 10 mg GT HS [facility] Last Admin: 02/15/18 21:42 Dose: 10 mg Diazepam (Diastat *Pediatric Rectal Gel* -) 2.5 mg RC ONCE PRN PRN Reason: seizure Fluticasone Propionate (Flonase -) 2 spray NS HS [facility] Last Admin: 02/15/18 21:41 Dose: 2 spray Heparin Sodium (Porcine) (Heparin -) 5,000 unit SQ TID [facility] Last Admin: 02/16/18 06:24 Dose: 5,000 unit Vancomycin HCl (Vancomycin 1 Gm Premix -) 1 gm in 200 mls @ 133.333 mls/hr IVPB Q12H [facility]; Protocol Last Admin: 02/16/18 09:33 Dose: 133.333 mls/hr Levofloxacin (Levaquin 500 Mg Premixed Ivpb -) 500 mg in 100 mls @ 100 mls/hr IVPB DAILY [facility]; Protocol Last Admin: 02/16/18 09:32 Dose: 100 mls/hr Lorazepam (Ativan -) 1 mg GT DAILY PRN PRN Reason: seizure Methylprednisolone Sodium Succinate (Solu-Medrol -) 40 mg IVPUSH Q8H-IV [facility] Last Admin: 02/16/18 09:33 Dose: 40 mg Multi-Ingredient Ointment (Zinc Oxide) 1 applic TP BID [facility] Last Admin: 02/16/18 09:50 Dose: 1 applic Non-Formulary Medication (Rufinamide [Banzel]) 1,600 mg GT BID [facility] Nystatin (Mycostatin Ointment -) 1 applic TP BID [facility] Last Admin: 02/16/18 09:50 Dose: 1 applic Pantoprazole Sodium (Protonix Packets For Oral Suspension -) 40 mg NGT DAILY [facility] Last Admin: 02/16/18 09:33 Dose: 40 mg Polyethylene Glycol (Miralax (For Daily Use) -) 17 gm GT DAILY [facility] Last Admin: 02/16/18 09:33 Dose: 17 grams Topiramate (Topamax -) 300 mg GT AM [facility] Last Admin: 02/16/18 06:24 Dose: 300 mg Topiramate (Topamax -) 400 mg GT HS [facility] Last Admin: 02/15/18 21:43 Dose: 400 mg Zonisamide (Zonisamide) 200 mg GT TID [facility] Last Admin: 02/16/18 06:24 Dose: 200 mg Zonisamide (Zonisamide) 50 mg GT HS [facility] Last Admin: 02/15/18 21:44 Dose: 50 mg - Objective Vital Signs: Vital Signs Temperature 97.7 F 02/16/18 09:28 Pulse Rate 100 H 02/16/18 09:28 Respiratory Rate 18 02/16/18 09:28 Blood Pressure 100/62 02/16/18 09:28 O2 Sat by Pulse Oximetry (%) 96 02/15/18 21:00 Constitutional: Yes: Well Nourished, Calm Eyes: Yes: WNL HENT: Yes: WNL Neck: Yes: WNL Cardiovascular: Yes: Regular Rate and Rhythm, S1, S2 Respiratory: Yes: Rhonchi (few rhonchi) Gastrointestinal: Yes: Normal Bowel Sounds, Soft Extremities: Yes: WNL Edema: No Labs: CBC, BMP 02/15/18 09:30 02/16/18 07:45 INR, PTT INR 1.11 (0.83-1.09) H 02/13/18 23:40 Problem List - Problems (1) Acute respiratory failure with hypoxia and hypercapnia Code(s): J96.01 - ACUTE RESPIRATORY FAILURE WITH HYPOXIA; J96.02 - ACUTE RESPIRATORY FAILURE WITH HYPERCAPNIA (2) Respiratory distress Code(s): R06.03 - ACUTE RESPIRATORY DISTRESS (3) Cerebral palsy Code(s): G80.9 - CEREBRAL PALSY, UNSPECIFIED Qualifiers: Cerebral palsy type: unspecified type Qualified Code(s): G80.9 - Cerebral palsy, unspecified (4) Hypoxia Code(s): R09.02 - HYPOXEMIA (5) Functional quadriplegia Code(s): R53.2 - FUNCTIONAL QUADRIPLEGIA (6) PNA (pneumonia) Code(s): J18.9 - PNEUMONIA, UNSPECIFIED ORGANISM Qualifiers: Pneumonia type: due to unspecified organism Laterality: unspecified laterality Lung location: unspecified part of lung Qualified Code(s): J18.9 - Pneumonia, unspecified organism (7) Seizure Code(s): R56.9 - UNSPECIFIED CONVULSIONS Assessment/Plan IMP ACUTE HYPOXEMIC/HYPERCAPNEIC RESPIRATORY FAILURE IMPROVING LIKELY PNEUMONIA PNEUMOCOCCAL + ANTIGEN CEREBRAL PALSY SEVERE MENTAL RETARDATION SEIZURE DISORDER + BLOOD CULTURES PLAN ABX PER ID O2 TO MAINTAIN O2 SAT 90% OR GREATER INHALED BRONCHODILATORS SHORT COURSE OF STEROIDS F/U CHEST X-RAY DR ENGLAND Problem List - Problems (1) Acute respiratory failure with hypoxia and hypercapnia Code(s): J96.01 - ACUTE RESPIRATORY FAILURE WITH HYPOXIA; J96.02 - ACUTE RESPIRATORY FAILURE WITH HYPERCAPNIA (2) Respiratory distress Code(s): R06.03 - ACUTE RESPIRATORY DISTRESS (3) Cerebral palsy Code(s): G80.9 - CEREBRAL PALSY, UNSPECIFIED Qualifiers: Cerebral palsy type: unspecified type Qualified Code(s): G80.9 - Cerebral palsy, unspecified (4) Hypoxia Code(s): R09.02 - HYPOXEMIA (5) Functional quadriplegia Code(s): R53.2 - FUNCTIONAL QUADRIPLEGIA (6) PNA (pneumonia) Code(s): J18.9 - PNEUMONIA, UNSPECIFIED ORGANISM Qualifiers: Pneumonia type: due to unspecified organism Laterality: unspecified laterality Lung location: unspecified part of lung Qualified Code(s): J18.9 - Pneumonia, unspecified organism (7) Seizure Code(s): R56.9 - UNSPECIFIED CONVULSIONS
--- NOTE | 2018-02-16 10:54 | PN ---
Progress Note (short form) - Note Progress Note: less congested Vital Signs Period Temp Pulse Resp BP Sys/Grossman Pulse Ox Last 24 Hr 97.7 F-98.7 F 100-128 18-20 100-120/59-82 96 cor-rrr lungs bilateral rhonchi abd soft,nt ext no edema CBC, BMP 02/15/18 09:30 02/16/18 07:45 Microbiology 02/15/18 10:03 Blood - Peripheral Venous Blood Culture - Preliminary NO GROWTH OBTAINED AFTER 24 HOURS, INCUBATION TO CONTINUE FOR 4 DAYS. 02/13/18 23:40 Blood - Peripheral Venous Blood Culture - Preliminary Staphylococcus Species 02/15/18 09:00 Blood - Peripheral Venous Blood Culture - Preliminary NO GROWTH OBTAINED AFTER 24 HOURS, INCUBATION TO CONTINUE FOR 4 DAYS. 02/14/18 15:15 Sputum - Expectorated Sputum Culture - Preliminary Non Lactose Fermenting Gnb 02/15/18 10:00 Urine For Antigen Detection Legionella Antigen - Final 02/15/18 10:00 Urine For Antigen Detection Streptococcus pneumoniae Antigen (M - Final 02/14/18 05:03 Urine - Urine - Catheterized Urine Culture - Preliminary Group D Strep Or Entero Coccus 02/13/18 23:45 Blood - Peripheral Venous Blood Culture - Preliminary Staphylococcus Species a/p suspected pneumococcal pneumonia- urinary antigen +pneumo antigen, continue levaquin gram positive bacteremia-staph sp-repeat blood cultures pending, continue vancomycin for now do not suspect UTI pen/ceph allergies d/w hospitalist
--- NOTE | 2018-02-16 15:52 | PN ---
Progress Note (short form) - Note Progress Note: Subjective: no events over night. d/w father , he thinks [place] looks stable at his base line Objective: Vital Signs: Last Vital Signs Temp Pulse Resp BP Pulse Ox 98.4 F 94 H 18 108/66 96 02/16/18 15:18 02/16/18 15:18 02/16/18 15:18 02/16/18 15:18 02/16/18 09:00 Laboratory Results - last 24 hr 02/16/18 07:45 Sodium 136 Potassium 3.8 Chloride 100 Carbon Dioxide 26 Anion Gap 10 BUN 12 Creatinine 0.2 L Creat Clearance w eGFR > 60 Random Glucose 121 H D Calcium 8.5 Physical Exam: NAD,awake Cv: RRR Lungs: CTAB Ext: no erythema or edema . Abd: soft, ND, NT, PEG tube in LUQ with white powder around it ASSESSMENT AND PLAN: 28 y/o man with h/o seizure disorder, cerebral palsy, and mental retardation , and recurrent aspiration PN, who presented with fever , an hypoxia . 1- Pneumococcal PNA: - cont levaquin - vanco for + blood cx for staph Hominis. this is likely contaminant and will probbaly dc vanc tomorrow after d/w ID - repeat blod cx neg to date 2-Bacteruria :unlikely UTI 3- seizure disorder: cont home meds. monitor on levaquin 4- Nutrition :cont TF and free water flushes nystatin and zinc oxide for skin excoriation 5- elevated Alk phos, chronic: GGT elevated indicating liver source. possible meds effect 6- DVT px possible dc in 1-2 days back to [place]. Visit type - Emergency Visit Emergency Visit: Yes ED Registration Date: 02/14/18 Care time: The patient presented to the Emergency Department on the above date and was hospitalized for further evaluation of their emergent condition. - New Patient This patient is new to me today: No - Critical Care Critical Care patient: No
[2018-02-16] MEDS: FLUTICASONE PROP 0.05% 16 GM NASAL SPRAY NS SCH (22:07)
[2018-02-17] MEDS: HEPARIN NA (PORCINE) 5,000 UNITS/ML 1ML VIAL SQ SCH ×2 (06:31→13:49)
[2018-02-17] MEDS: carBAMazepine 200 MG TABLET GT SCH ×2 (06:32→11:41)
[2018-02-17] MEDS: ZONISAMIDE 100 MG/10 ML ORAL SUSPENSION GT SCH ×2 (06:32→13:49)
[2018-02-17] MEDS: TOPIRAMATE 100 MG TABLET GT SCH (06:33)
[2018-02-17] MEDS: cloBAZam 10 MG TABLET GT SCH (06:36)
--- NOTE | 2018-02-17 10:13 | PN ---
Physical Exam: SUBJECTIVE: Patient seen and examined at bedside. He is at baseline, nonverbal. No acute overnight events. OBJECTIVE: Vital Signs Period Temp Pulse Resp BP Sys/Grossman Pulse Ox Last 24 Hr 98.4 F-98.7 F 89-98 17-20 101-110/60-71 98 GENERAL: The patient is awake, in no acute distress. HEAD: Normal with no signs of trauma. EYES: PERRL, sclera anicteric, conjunctiva clear. ENT: Oropharynx clear without exudates, moist mucous membranes. NECK: Supple without lymphadenopathy. LUNGS: Diminished air entery B/L. Crackles auscultated over left lung base. No tachypnea, no accessory muscle use. HEART: Regular rate and rhythm, S1, S2 without murmur, rub or gallop. ABDOMEN: Soft, nontender, nondistended, normoactive bowel sounds, no hepatosplenomegaly, EXTREMITIES: 2+ pulses, warm, well-perfused, no edema. SKIN: Warm, dry, normal turgor. Rash on RUE improving with marked reduction in erythema and callor. Active Medications Generic Name Dose Route Start Last Admin Trade Name Freq PRN Reason Stop Dose Admin Bisacodyl 10 mg 02/14/18 06:12 Dulcolax Suppository - RC DAILY PRN CONSTIPATION Carbamazepine 300 mg 02/14/18 12:00 02/16/18 11:42 Tegretol - GT 300 mg DAILY@1200 BRAD Administration Carbamazepine 400 mg 02/14/18 07:00 02/17/18 06:32 Tegretol - GT 400 mg BID@0700,2200 BRAD Administration Clobazam 5 mg 02/14/18 07:00 02/17/18 06:36 Onfi - GT 5 mg AM BRAD Administration Clobazam 10 mg 02/14/18 22:00 02/16/18 22:09 Onfi - GT 10 mg HS BRAD Administration Fluticasone Propionate 2 spray 02/14/18 22:00 02/16/18 22:07 Flonase - NS 2 spray HS BRAD Administration Heparin Sodium (Porcine) 5,000 unit 02/14/18 06:00 02/17/18 06:31 Heparin - SQ 5,000 unit TID BRAD Administration Vancomycin HCl 1 gm in 200 mls @ 133.333 mls/hr 02/15/18 10:00 02/16/18 22:09 Vancomycin 1 Gm Premix - IVPB 133.333 mls/hr Q12H BRAD Administration Protocol Levofloxacin 500 mg in 100 mls @ 100 mls/hr 02/15/18 13:00 02/16/18 09:32 Levaquin 500 Mg Premixed Ivpb - IVPB 100 mls/hr DAILY BRAD Administration Protocol Lorazepam 1 mg 02/14/18 10:05 Ativan - GT DAILY PRN seizure Methylprednisolone Sodium Succinate 40 mg 02/16/18 22:00 02/16/18 22:09 Solu-Medrol - IVPUSH 40 mg BID BRAD Administration Multi-Ingredient Ointment 1 applic 02/14/18 13:00 02/16/18 22:08 Zinc Oxide TP 1 applic BID BRAD Administration Non-Formulary Medication 1,600 mg 02/14/18 10:00 Rufinamide [Banzel] GT BID BRAD Nystatin 1 applic 02/14/18 23:15 02/16/18 22:08 Mycostatin Ointment - TP 1 applic BID BRAD Administration Pantoprazole Sodium 40 mg 02/14/18 10:00 02/16/18 09:33 Protonix Packets For Oral Suspension - NGT 40 mg DAILY BRAD Administration Polyethylene Glycol 17 gm 02/14/18 10:00 02/16/18 09:33 Miralax (For Daily Use) - GT 17 grams DAILY BRAD Administration Topiramate 300 mg 02/15/18 07:00 02/17/18 06:33 Topamax - GT 300 mg AM BRAD Administration Topiramate 400 mg 02/14/18 22:00 02/16/18 22:10 Topamax - GT 400 mg HS BRAD Administration Zonisamide 200 mg 02/15/18 06:00 02/17/18 06:32 Zonisamide GT 200 mg TID BRAD Administration Zonisamide 50 mg 02/15/18 22:00 02/16/18 22:09 Zonisamide GT 50 mg HS BRAD Administration Patient was admitted for Pneumonia, likely secondary to aspiration. Upon admission, patient was septic with WBC count of 10.1, tachycardic at 98BPM, and afebrile at 98.5F. Patent was started on Vancomycin, Clindamycin, and Aztreonam , which were discontinued based on ID recommendations. He was switched to Levaquin 500mg and has completed 3 day course. In addition, he was treated with Ipratropium 0.2% via nebulizer, and Fluticasone nasal spray per his home meds. He was given trial of IV streroids, and will be transitioned to 3 days of oral steroids. CXR showed infiltrates in left lung base, which were improved with subsequent CXR. Patient was also found to have cellulitis of left arm and some erythema around the G tube site. He was started on Nystatin topical, which improved the erythema and callor. He will continue Nystatin topical cream for G tube insertion site, and right arm cellulites for three days after discharge. Aspiration Pneumonia -CXR shows no changes compared to prior study from 02/13. Atelectasis vs infiltrate at left lung base. -ID consult appreciated. Continue Levaquin 500mg IV -? D/C Vancomycin- Initial blood cultures were positive for Staph Hominis, however likely contamination as repeat blood cultures have been negative. -Appreciate Pulm consult: Maintain O2 saturation >90%, inhaled bronchodilators, ?short course steroids, f/u CXR -Ipratropium 0.02% QID nebulizer -Fluticasone nasal spray Cellulitis -Rash on RUE is improving with decreased erythema -G tube site mildy erythematous. No discharge noted -Continue Levaquin, and ?Vancomycin -Nystatin topcial ointment around GT site Cerebral Palsy/ Epilepsy -Zonisamide 50mg HS GT, 200mg TID GT -Banzel 1600mg Q12H GT -Carbamazepine 400mg GT in AM, 300mg GT at noon, 400mg GT HS -Clozabam 5mg GT in AM, 10mg GT HS -Lorazepam 1mg GT PRN for seizure lasting >3 minutes Elevated Alkaline Phosphatase - Alkaline phosphatase trending down 240 on admission -> 216. -GGT elevated at 105. Alk phos elevation likely d/t hepatic source, transaminases stable: AST 20, ALT 37. Bacturia -Urine culture positive for Staph -Likely asymptomatic YEN vs. possible contamination -Will continue Levaquin Chronic Constipaiton -Miralax 17gm GT Prophylaxis Pantoprazole 40mg via NG tube Heparin 5000units TID FEN -No IV fluids -No electrolyte abnormalities. Will f/u BMP -Tube feeds via GT Disposition: For possible D/C tomorrow pending CXR
[2018-02-17] MEDS ORDERED: PT OWN MED DRAWER 7, Y5N ONE ×2 (10:51→13:44)
[2018-02-17] MEDS: methylPREDNISolone NA SUCC 40 MG/1 ML VIAL IVPUSH SCH (10:54)
[2018-02-17] MEDS: PANTOPRAZOLE SOD 40 MG SUSPENSION PACKET NGT SCH (10:55)
[2018-02-17] MEDS: ZINC OXIDE 20% TOPICAL OINTMENT 30 GM TUBE TP SCH (10:55)
[2018-02-17] MEDS: NYSTATIN 100000 UNIT/GM TOPICAL OINTMENT 15 GM TUBE TP SCH (10:55)
[2018-02-17] MEDS: VANCOMYCIN 1 GM PREMIX - 1 GM/200 ML BAG IVPB SCH (11:27)
[2018-02-17] MEDS: POLYETHYLENE GLYCOL 3350 119 GM BTL GT SCH (11:44)
--- NOTE | 2018-02-17 11:53 | PN ---
Progress Note, Physician History of Present Illness: pulmonary comfortable,-resp distrss - Current Medication List Current Medications: Active Medications Bisacodyl (Dulcolax Suppository -) 10 mg RC DAILY PRN PRN Reason: CONSTIPATION Carbamazepine (Tegretol -) 300 mg GT DAILY@1200 [facility] Last Admin: 02/17/18 11:41 Dose: 300 mg Carbamazepine (Tegretol -) 400 mg GT BID@0700,2200 [facility] Last Admin: 02/17/18 06:32 Dose: 400 mg Clobazam (Onfi -) 5 mg GT AM [facility] Last Admin: 02/17/18 06:36 Dose: 5 mg Clobazam (Onfi -) 10 mg GT HS [facility] Last Admin: 02/16/18 22:09 Dose: 10 mg Fluticasone Propionate (Flonase -) 2 spray NS HS [facility] Last Admin: 02/16/18 22:07 Dose: 2 spray Heparin Sodium (Porcine) (Heparin -) 5,000 unit SQ TID [facility] Last Admin: 02/17/18 06:31 Dose: 5,000 unit Levofloxacin (Levaquin 500 Mg Premixed Ivpb -) 500 mg in 100 mls @ 100 mls/hr IVPB DAILY [facility]; Protocol Last Admin: 02/17/18 10:58 Dose: 100 mls/hr Methylprednisolone Sodium Succinate (Solu-Medrol -) 40 mg IVPUSH BID [facility] Last Admin: 02/17/18 10:54 Dose: 40 mg Multi-Ingredient Ointment (Zinc Oxide) 1 applic TP BID [facility] Last Admin: 02/17/18 10:55 Dose: 1 applic Non-Formulary Medication (Rufinamide [Banzel]) 1,600 mg GT BID [facility] Nystatin (Mycostatin Ointment -) 1 applic TP BID [facility] Last Admin: 02/17/18 10:55 Dose: 1 applic Pantoprazole Sodium (Protonix Packets For Oral Suspension -) 40 mg NGT DAILY [facility] Last Admin: 02/17/18 10:55 Dose: 40 mg Polyethylene Glycol (Miralax (For Daily Use) -) 17 gm GT DAILY [facility] Last Admin: 02/17/18 11:44 Dose: 17 grams Topiramate (Topamax -) 300 mg GT AM [facility] Last Admin: 02/17/18 06:33 Dose: 300 mg Topiramate (Topamax -) 400 mg GT HS [facility] Last Admin: 02/16/18 22:10 Dose: 400 mg Zonisamide (Zonisamide) 200 mg GT TID [facility] Last Admin: 02/17/18 06:32 Dose: 200 mg Zonisamide (Zonisamide) 50 mg GT HS [facility] Last Admin: 02/16/18 22:09 Dose: 50 mg - Objective Vital Signs: Vital Signs Temperature 98.7 F 02/17/18 06:00 Pulse Rate 89 02/17/18 06:00 Respiratory Rate 20 02/17/18 06:00 Blood Pressure 109/71 02/17/18 06:00 O2 Sat by Pulse Oximetry (%) 98 02/16/18 21:00 Constitutional: Yes: Well Nourished, Calm Eyes: Yes: WNL HENT: Yes: WNL Neck: Yes: Rigid Cardiovascular: Yes: Regular Rate and Rhythm, S1, S2 Respiratory: Yes: Diminished Gastrointestinal: Yes: Normal Bowel Sounds, Soft Extremities: Yes: WNL Edema: No Labs: CBC, BMP Problem List - Problems (1) Acute respiratory failure with hypoxia and hypercapnia Code(s): J96.01 - ACUTE RESPIRATORY FAILURE WITH HYPOXIA; J96.02 - ACUTE RESPIRATORY FAILURE WITH HYPERCAPNIA (2) Respiratory distress Code(s): R06.03 - ACUTE RESPIRATORY DISTRESS (3) Cerebral palsy Code(s): G80.9 - CEREBRAL PALSY, UNSPECIFIED Qualifiers: Cerebral palsy type: unspecified type Qualified Code(s): G80.9 - Cerebral palsy, unspecified (4) Hypoxia Code(s): R09.02 - HYPOXEMIA (5) Functional quadriplegia Code(s): R53.2 - FUNCTIONAL QUADRIPLEGIA (6) PNA (pneumonia) Code(s): J18.9 - PNEUMONIA, UNSPECIFIED ORGANISM Qualifiers: Pneumonia type: due to unspecified organism Laterality: unspecified laterality Lung location: unspecified part of lung Qualified Code(s): J18.9 - Pneumonia, unspecified organism (7) Seizure Code(s): R56.9 - UNSPECIFIED CONVULSIONS Assessment/Plan IMP ACUTE HYPOXEMIC/HYPERCAPNEIC RESPIRATORY FAILURE IMPROVED LIKELY PNEUMONIA PNEUMOCOCCAL + ANTIGEN CEREBRAL PALSY SEVERE MENTAL RETARDATION SEIZURE DISORDER + BLOOD CULTURES PLAN ABX PER ID O2 TO MAINTAIN O2 SAT 90% OR GREATER INHALED BRONCHODILATORS SHORT COURSE OF STEROIDS DR [place] Problem List - Problems (1) Acute respiratory failure with hypoxia and hypercapnia Code(s): J96.01 - ACUTE RESPIRATORY FAILURE WITH HYPOXIA; J96.02 - ACUTE RESPIRATORY FAILURE WITH HYPERCAPNIA (2) Respiratory distress Code(s): R06.03 - ACUTE RESPIRATORY DISTRESS (3) Cerebral palsy Code(s): G80.9 - CEREBRAL PALSY, UNSPECIFIED Qualifiers: Cerebral palsy type: unspecified type Qualified Code(s): G80.9 - Cerebral palsy, unspecified (4) Hypoxia Code(s): R09.02 - HYPOXEMIA (5) Functional quadriplegia Code(s): R53.2 - FUNCTIONAL QUADRIPLEGIA (6) PNA (pneumonia) Code(s): J18.9 - PNEUMONIA, UNSPECIFIED ORGANISM Qualifiers: Pneumonia type: due to unspecified organism Laterality: unspecified laterality Lung location: unspecified part of lung Qualified Code(s): J18.9 - Pneumonia, unspecified organism (7) Seizure Code(s): R56.9 - UNSPECIFIED CONVULSIONS
--- NOTE | 2018-02-17 13:37 | PN ---
Teaching Attending Note Name of Resident: Alma Christianson ATTENDING PHYSICIAN STATEMENT I saw and evaluated the patient. I reviewed the resident's note and discussed the case with the resident. I agree with the resident's findings and plan as documented. SUBJECTIVE: no events over night . OBJECTIVE: NAD,awake Cv: RRR Lungs: CTAB Ext: no erythema or edema . Abd: soft, ND, NT, PEG tube in LUQ with white cream at site ASSESSMENT AND PLAN: 28 y/o man with h/o seizure disorder, cerebral palsy, and mental retardation , and recurrent aspiration PN, who presented with fever , an hypoxia . 1- Pneumococcal PNA: - cont levaquin day 3 / . can switch to GT - dc vano as + blood cx is thought to be contaminant - pseudomonas in sputum is thought to be contaminant - repeat cx neg to date 2-Bacteruria :unlikely UTI 3- Seizure disorder: cont home meds. monitor on levaquin 4- Nutrition :cont TF and free water flushes nystatin and zinc oxide for skin excoriation 5-Elevated Alk phos, chronic: GGT elevated indicating liver source. possible meds effect will plan on dc to [place] today
[2018-02-17 14:23] VITALS: BP 111/59; PULSE 92; TEMP 97.3
--- NOTE | 2018-02-17 14:38 | PN ---
Progress Note, Physician History of Present Illness: Awake, non verbal breathing non-labored Afebrile WBC WNL Urine pneumococcal ag+ BC contaminants - Current Medication List Current Medications: Active Medications Bisacodyl (Dulcolax Suppository -) 10 mg RC DAILY PRN PRN Reason: CONSTIPATION Carbamazepine (Tegretol -) 300 mg GT DAILY@1200 [facility] Last Admin: 02/17/18 11:41 Dose: 300 mg Carbamazepine (Tegretol -) 400 mg GT BID@0700,2200 [facility] Last Admin: 02/17/18 06:32 Dose: 400 mg Clobazam (Onfi -) 5 mg GT AM [facility] Last Admin: 02/17/18 06:36 Dose: 5 mg Clobazam (Onfi -) 10 mg GT HS [facility] Last Admin: 02/16/18 22:09 Dose: 10 mg Fluticasone Propionate (Flonase -) 2 spray NS HS [facility] Last Admin: 02/16/18 22:07 Dose: 2 spray Heparin Sodium (Porcine) (Heparin -) 5,000 unit SQ TID [facility] Last Admin: 02/17/18 13:49 Dose: 5,000 unit Levofloxacin (Levaquin 500 Mg Premixed Ivpb -) 500 mg in 100 mls @ 100 mls/hr IVPB DAILY [facility]; Protocol Last Admin: 02/17/18 10:58 Dose: 100 mls/hr Methylprednisolone Sodium Succinate (Solu-Medrol -) 40 mg IVPUSH BID [facility] Last Admin: 02/17/18 10:54 Dose: 40 mg Multi-Ingredient Ointment (Zinc Oxide) 1 applic TP BID [facility] Last Admin: 02/17/18 10:55 Dose: 1 applic Non-Formulary Medication (Rufinamide [Banzel]) 1,600 mg GT BID [facility] Nystatin (Mycostatin Ointment -) 1 applic TP BID [facility] Last Admin: 02/17/18 10:55 Dose: 1 applic Pantoprazole Sodium (Protonix Packets For Oral Suspension -) 40 mg NGT DAILY [facility] Last Admin: 02/17/18 10:55 Dose: 40 mg Polyethylene Glycol (Miralax (For Daily Use) -) 17 gm GT DAILY [facility] Last Admin: 02/17/18 11:44 Dose: 17 grams Topiramate (Topamax -) 300 mg GT AM [facility] Last Admin: 02/17/18 06:33 Dose: 300 mg Topiramate (Topamax -) 400 mg GT HS [facility] Last Admin: 02/16/18 22:10 Dose: 400 mg Zonisamide (Zonisamide) 200 mg GT TID [facility] Last Admin: 02/17/18 13:49 Dose: 200 mg Zonisamide (Zonisamide) 50 mg GT HS [facility] Last Admin: 02/16/18 22:09 Dose: 50 mg - Objective Vital Signs: Vital Signs Temperature 97.3 F L 02/17/18 14:21 Pulse Rate 92 H 02/17/18 14:21 Respiratory Rate 20 02/17/18 14:21 Blood Pressure 111/59 02/17/18 14:21 O2 Sat by Pulse Oximetry (%) 98 02/16/18 21:00 Constitutional: Yes: No Distress Eyes: Yes: Conjunctiva Clear Cardiovascular: Yes: Regular Rate and Rhythm, S1, S2 Respiratory: Yes: Rhonchi Gastrointestinal: Yes: Normal Bowel Sounds, Soft. No: Tenderness Labs: CBC, BMP 02/15/18 09:30 02/16/18 07:45 INR, PTT INR 1.11 (0.83-1.09) H 02/13/18 23:40 Assessment/Plan Presumptive pneumococcal pneumonia PCN/CP allergies +BC , urine c/s= contamination CP/MR Continue levaquin Complete 10d total antibiotic course
--- NOTE | 2018-02-17 16:10 | DS ---
Physical Exam: SUBJECTIVE: Patient seen and examined OBJECTIVE: Vital Signs Period Temp Pulse Resp BP Sys/Grossman Pulse Ox Last 24 Hr 97.3 F-98.7 F 89-98 17-20 101-111/59-71 98 PHYSICAL EXAM GENERAL: The patient is awake, in no acute distress. HEAD: Normal with no signs of trauma. EYES: PERRL, extraocular movements intact, sclera anicteric, conjunctiva clear. ENT: Oropharynx clear without exudates, moist mucous membranes. NECK: Supple without lymphadenopathy LUNGS: Breath sounds equal, clear to auscultation bilaterally, no wheezes, no crackles, no accessory muscle use. HEART: Regular rate and rhythm, S1, S2 without murmur, rub or gallop. ABDOMEN: Soft, nontender, nondistended, normoactive bowel sounds, no guarding, no rebound, no hepatosplenomegaly. EXTREMITIES: 2+ pulses, no edema. SKIN: Warm, dry, normal turgor. Significant improvement of RUE cellulitis with diminishing erythema. Mild erythema at G tube site, also improving. LABS HOSPITAL COURSE: Date of Admission:02/14/18 Date of Discharge: 02/17/18 Patient was admitted for Pneumonia, likely secondary to aspiration. Upon admission, patient was septic with WBC count of 10.1, tachycardic at 98BPM, and afebrile at 98.5F. Patent was started on Vancomycin, Clindamycin, and Aztreonam , which were discontinued based on ID recommendations. He was switched to Levaquin 500mg and has completed 3 day course. In addition, he was treated with Ipratropium 0.2% via nebulizer, and Fluticasone nasal spray per his home meds. He was given trial of IV streroids, and will be transitioned to 3 days of oral steroids. CXR showed infiltrates in left lung base, which were improved with subsequent CXR. Patient was also found to have cellulitis of left arm and some erythema around the G tube site. He was started on Nystatin topical, which improved the erythema and callor. He will continue Nystatin topical cream for G tube insertion site, and right arm cellulites for three days after discharge. He will continue Levaquin 500mg for 4 more days at . Minutes to complete discharge: 30 Discharge Summary Reason For Visit: CEREBRAL PALSY RESPIRATORY DISTRESS Current Active Problems Acute respiratory failure with hypoxia and hypercapnia (Acute) Hypoxia (Acute) Respiratory distress (Acute) SOB (shortness of breath) (Acute) Cerebral palsy (Chronic) Functional quadriplegia (Chronic) Scoliosis (Chronic) Condition: Improved - Instructions Diet, Activity, Other Instructions: You were admitted for pneumococcal pneumonia You were treated with antibiotic (Levaquin) in the hospital. Continue antibiotic (Levaquin) for 4 more days, for a total of 7 days ( received 3 in hospital ) . You were given Nebulizer treatment with Ipratropium, and Fluticasone nasal spray , and steroids (Solu-Mederol). You will continue oral steroids for 2 more days ( Prednisone 20mg). While hospitalized you were found to have a rash on your right arm that was also treated with antibiotic cream (Nystatin). The rash is resolving. Continue using the cream for three more days. Continue taking Lorazepam,Clozabam, Carbamazepine, Banzel, Zonisamide, and Topiramate for epilepsy, cerebral palsy. Continue Miralax for constipation as needed. Disposition: [facility] - Home Medications Comprehensive Discharge Medication List: Ambulatory Orders Bisacodyl Suppository [Dulcolax Suppository -] 10 mg RC ASDIR PRN 11/23/17 Carbamazepine [Tegretol -] 300 mg GT ASDIR 11/23/17 Carbamazepine [Tegretol -] 400 mg GT AM 11/23/17 Carbamazepine [Tegretol -] 400 mg GT HS 11/23/17 Clobazam [Onfi -] 5 mg GT AM 11/23/17 Clobazam [Onfi -] 10 mg GT 11/23/17 Diazepam [Diastat] 2.5 mg RC ONCE PRN 11/23/17 Fluticasone Prop 0.05% Nasal [Flonase -] 2 spray NS HS 11/23/17 Lorazepam [Ativan] 1 mg GT ASDIR PRN 11/23/17 Polyethylene Glycol 3350 [Miralax 119 gm Btl -] 17 gm GT ASDIR 11/23/17 Rufinamide [Banzel] 1,600 mg GT BID 11/23/17 Zonisamide [Zonegran -] 50 mg GT HS 11/23/17 Zonisamide [Zonegran] 200 mg GT TID 11/23/17 Topiramate [Topamax] 300 mg GT AM 02/14/18 Topiramate [Topamax] 400 mg GT HS 02/14/18 Levofloxacin [Levaquin] 500 mg PO DAILY 4 Days #4 tablet 02/17/18 This patient is new to me today: Yes Date on this admission: 02/17/18 Emergency Visit: No Critical Care patient: No - Discharge Referral Referred to [facility] No
== END 2018-02-17 18:32 | disposition home or self-care (01) | DRG 871 ==
LOC: JER 22:03 → JERBED 02-14 01:43 → UNDOADMOB 02-14 02:11 → J5S 02-14 03:44 → OBSVTOIN 02-14 05:16
PROVIDERS: ADMIT Internal Medicine; ATTEND Internal Medicine
DX: A41.9 Sepsis, unspecified organism (principal); J69.0 Pneumonitis due to inhalation of food and vomit; R53.2 Functional quadriplegia; J96.01 Acute respiratory failure with hypoxia; J96.02 Acute respiratory failure with hypercapnia; J13 Pneumonia due to Streptococcus pneumoniae; F72 Severe intellectual disabilities; N39.0 Urinary tract infection, site not specified; L03.113 Cellulitis of right upper limb; G40.909 Epilepsy, unspecified, not intractable, without status epilepticus; K59.00 Constipation, unspecified; M41.9 Scoliosis, unspecified; R00.0 Tachycardia, unspecified; G80.9 Cerebral palsy, unspecified; B95.2 Enterococcus as the cause of diseases classified elsewhere
CPT/HCPCS: 36415; 71045-TC-FY; 80048; 80053; 81003; 81015; 82803; 82977; 83605; 84484; 85025; 85027; 85379; 85610; 85730; 87040; 87070; 87086; 87186; 87205; 87899; 93005; 93010; 94640; 99283-25; G0378; J1644

== ENCOUNTER 2018-04-02 18:56 | Inpatient (IN) | payer OTHER ==
--- NOTE | 2018-04-02 19:13 | PDOC ---
History of Present Illness - General Stated Complaint: FEVER Time Seen by Provider: 04/02/18 19:08 - History of Present Illness Initial Comments: 04/02/18 20:38 The patient is a 28 year old male with a history of cerebral palsy, seizures, recurrent pneumonia who presents for evaluation of fever and tachycardia. The patient presents for [place] and is non communicative at baseline. Per the patient's paperwork, the patient began spiking fevers of 101 earlier today with associated tachycardia and and O2 sat of 94% prompting his presentation to the ED for further evaluation. History is limited due to the patient's baseline mental status. ROS is unobtainable. Past History - Past Medical History Allergies/Adverse Reactions: Allergies Allergy/AdvReac Type Severity Reaction Status Date / Time albuterol Allergy Verified 02/13/18 22:09 Cephalosporins Allergy Verified 02/13/18 22:09 latex Allergy Verified 02/13/18 22:09 Penicillins Allergy Verified 02/13/18 22:09 shrimp Allergy Verified 02/13/18 22:09 wool Allergy Verified 02/13/18 22:09 Home Medications: Ambulatory Orders Clobazam [Onfi -] 10 mg GT BID 11/23/17 Diazepam [Diastat] 10 mg RC ONCE PRN 11/23/17 Fluticasone Prop 0.05% Nasal [Flonase -] 2 spray NS HS 11/23/17 Lorazepam [Ativan] 1 mg GT ASDIR PRN 11/23/17 Polyethylene Glycol 3350 [Miralax 119 gm Btl -] 17 gm GT ASDIR 11/23/17 Rufinamide [Banzel] 1,600 mg GT BID 11/23/17 Zonisamide [Zonegran -] 50 mg GT HS 11/23/17 Zonisamide [Zonegran] 200 mg GT TID 11/23/17 Topiramate [Topamax] 300 mg GT DAILY 02/14/18 Carbamazepine 300 mg GT DAILY 04/02/18 Ipratropium 0.02% Nebulizer [Atrovent 0.02% Nebulizer -] 1 amp IH QID 04/02/18 Topiramate [Qudexy Xr] 200 mg GT AM 04/02/18 Topiramate [Qudexy Xr] 400 mg GT HS 04/02/18 Carbamazepine 400 mg GT AM 04/03/18 Carbamazepine 400 mg GT HS 04/03/18 Anemia: No Asthma: No COPD: No GI Disorders: Yes (gtube) Seizures: Yes (epilepsy, cp,) - Surgical History Abdominal Surgery: Yes (gtube feeding) - Immunization History Immunization Up to Date: Yes - Suicide/Smoking/Psychosocial Hx Smoking History: Former smoker Have you smoked in the past 12 months: No Hx Alcohol Use: No Drug/Substance Use Hx: No Substance Use Type: None Review of Systems - Review of Systems Able to Perform ROS?: No (Cerebral Palsy) *Physical Exam - Physical Exam Comments: 04/02/18 20:48 General Appearance: Nourished. No Apparent Distress HEENT: No Pharyngeal Erythema, Tonsillar Exudate, Tonsillar Erythema Neck: No Cervical Lymphadenopathy Respiratory/Chest: Normal Breath Sounds. Bibasilar rales on exam. No Rhonchi, Wheezing Cardiovascular: Regular Rhythm, Regular Rate. No Murmur, Gallops, Rubs Gastrointestinal/Abdominal: Normal Bowel Sounds, Soft. G-Tube in place. No Guarding, Rebound, Tenderness Musculoskeletal: No CVA Tenderness Extremity: Normal Capillary Refill Integumentary: Normal Color, Dry, Warm Neurologic: At baseline. Non-interactive Heart Score/ECG Review #1 ECG reviewed & interpreted by me at: 20:50 General ECG Interpretation: Sinus Rhythm, Normal Intervals, No acute ischemic changes 04/02/18 20:50 Sinus Tachycardia Right axis deviation Right atrial enlargement Right ventricular hypertrophy ED Treatment Course - LABORATORY CBC & Chemistry Diagram: 04/02/18 19:20 04/03/18 01:40 Medical Decision Making - Medical Decision Making 04/02/18 19:51 The patient is a 28 year old male with a history of cerebral palsy, seizures, recurrent pneumonia who presents for evaluation of fever and tachycardia. Differential includes but is not limited to: UTI, Sepsis, Pneumonia, Infectious , Metabolic Derangement. Given the patient's history and physical exam, it is likely the patient is septic from either a pulmonary or urinary source. We will obtain a cbc, cmp, lactate, vbg, ua, urine culture, blood culture, troponin , ekg, chest plain film to evaluate further. We will treat with iv fluids, iv tylenol, vanc, aztrenam in the meantime and continue to monitor and reassess while here in the ED. 04/02/18 20:56 CBC demonstrates an elevated wbc to 13. CMP, troponin is unremarkable. ua demonstrates positive leuk esterase and elevated wbc consistent with a UTI. Chest plain film is unremarkable. The patient will require admission for further management. We discussed the case with the admitting team who accepted the patient for admission. *DC/Admit/Observation/Transfer Diagnosis at time of Disposition: Sepsis Qualifiers: Sepsis type: sepsis due to unspecified organism Qualified Code(s): A41.9 - Sepsis, unspecified organism UTI (urinary tract infection) Qualifiers: Urinary tract infection type: site unspecified Hematuria presence: without hematuria Qualified Code(s): N39.0 - Urinary tract infection, site not specified - Discharge Dispostion Condition at time of disposition: Stable - Referrals - Patient Instructions - Post Discharge Activity
[2018-04-02] MEDS ORDERED: SODIUM CHLORIDE 1,000 ML IV STA (19:14)
[2018-04-02] MEDS ORDERED: ACETAMINOPHEN 1000 MG/100 ML VIAL (NON FORMULARY) IVPB ONE (19:22)
--- NOTE | 2018-04-02 19:22 | PDOC ---
Attending Attestation - HPI HPI: 04/02/18 20:43 The patient is a 28 year old male brought via EMS from [facility] and presenting with an Aide, with a significant past medical history of cerebral palsy, seizures, recurrent pneumonia, who presents to the ED complaining of fever. Fever has been as high as 101.3 F. Allergies: latex, penicillin, albuterol, wool, shrimp Past surgical history: Peg tube Social History: No alcohol, tobacco or drug use reported - Physicial Exam PE: 04/02/18 20:43 Constitutional: Awake, alert, oriented. No acute distress. (+) Hot to touch, flushed face. Head: Normocephalic. Atraumatic Eyes: PERRL. EOMI. Conjunctivae are not pale. ENT: (+) Mucous membranes are Dry. Posterior pharynx without exudates or erythema. Uvula midline. Neck: Supple. Full ROM. No lymphadenopathy. Cardiovascular: (+) Tachycardia. Regular rhythm. S1, S2 regular. Distal pulses are 2+ and symmetric. Pulmonary/Chest: (+) Ronchi bilateral bases. No evidence of respiratory distress. Abdominal: (+) Peg Tube. Soft and non-distended. There is no tenderness. No rebound, guarding or rigidity. No organomegaly. No palpable masses. Good bowel sounds. Back: No CVA tenderness. Musculoskeletal: No edema. No cyanosis. No clubbing. No calf tenderness. Radial/pedal pulses are intact and 2+ bilaterally Skin: Skin is warm and dry. No petechiae. No purpura. Neurological: (+) Cerebral palsy. Normal speech. Strength is grossly symmetric. No sensory deficits. Psychiatric: Good eye contact. Normal interaction, affect and behavior. <Donnell Fields - Last Filed: 04/02/18 20:44> - Resident Resident Name: Yoel Bauman - ED Attending Attestation I have performed the following: I have examined & evaluated the patient, The case was reviewed & discussed with the resident, I agree w/resident's findings & plan, Exceptions are as noted - Critical Care Time Total Critical Care Time: 45 Critical Care Statement: The care of this patient involved high complexity decision making to prevent further life threatening deterioration of the patient 's condition and/or to evaluate & treat vital organ system(s) failure or risk of failure. - Medical Decision Making 04/02/18 19:21 I, Dr. Mya Loyd, DO, attest that this document has been prepared under my direction and personally reviewed by me in its entirety. I further attest, that it accurately reflects all work, treatment, procedures and medical decision -making performed by me. 04/02/18 20:18 28yo male with hx of CP from [place] for eval of fever/sob/tachy -pt unable to provide any history -pt flushed, hot to touch, tachy, rhonchorous bs -concern for pna -peg in place -erythematous rash to b/l UE -will send labs, cultures, flu, ua, will start broad spectrum abx -will need admission 04/02/18 20:29 uti on labs febrile 04/02/18 20:53 resident discussed the case with MARIA FERNANDA who accepts pt to service pt wuth UTI, sepsis no septic shock broad spectrum abx started <Mya Loyd - Last Filed: 04/02/18 20:54> Heart Score/ECG Review - ECG Intrepretation Comment:: 04/02/18 20:26 sinus tach at 120, R axis, r atrial enlargement, no acute st/ twa ve findings, RVH-abnl ekg <May Loyd - Last Filed: 04/02/18 20:54>
[2018-04-02] MEDS ORDERED: AZTREONAM 1 GM in DEXTROSE 5%-WATER - 50 ML IVPB ONE (19:23)
[2018-04-02] MEDS ORDERED: VANCOMYCIN 1 GRAM (PRE-DOCKED) 1,000 MG/250 ML BAG IVPB ONE (19:23)
[2018-04-02 19:46] LABS: BASO % 0.2 % (0-2.0); EOS % 0.4 % (0-4.5); HEMATOCRIT 45.4 % (35.4-49); LYMPH % 7.6 % (8-40); MCH 31.5 pg (25.7-33.7); MEAN CELL VOLUME 95.4 fl (80-96); MEAN PLT VOLUME 7.5 fl (7.5-11.1); NEUT % 83.8 % (42.8-82.8); PLATELET COUNT 211 K/MM3 (134-434); RBC 4.76 M/mm3 (4.00-5.60); RDW 13.8 % (11.9-15.9); WHITE BLOOD COUNT 13.6 K/mm3 (4.0-10.0)
[2018-04-02 19:48] LABS: VENOUS PC02 40.6 mmHg (38-52); VENOUS PH 7.4 (7.32-7.42); VENOUS PO2 52.6 mmHg (28-48)
[2018-04-02 20:08] LABS: INR 1.13 (0.83-1.09); PROTHROMBIN TIME (PATIENT) 13.3 SEC (9.7-13.0)
[2018-04-02 20:11] LABS: ACTIVATED PTT 33.9 SECONDS (25.2-36.5); URINE APPEARANCE TURBID; URINE BILIRUBIN NEGATIVE (<2.0 mg/dL); URINE COLOR YELLOW; URINE GLUCOSE (UA) NEGATIVE (NEGATIVE); URINE KETONE NEGATIVE (NEGATIVE); URINE LEUK ESTERASE 3+ (NEGATIVE); URINE NITRITE NEGATIVE (NEGATIVE); URINE PROTEIN NEGATIVE (NEGATIVE); URINE UROBILINOGEN NEGATIVE mg/dL (0.2-1.0)
[2018-04-02 20:16] LABS: ALBUMIN 4.1 g/dl (3.4-5.0); ALK PHOS 185 U/L (45-117); ANION GAP 8 MMOL/L (8-16); BILIRUBIN,TOTAL 0.6 mg/dL (0.2-1); BLOOD UREA NITROGEN 8 mg/dL (7-18); CALCIUM 9.1 mg/dL (8.5-10.1); CHLORIDE 96 mmol/L (98-107); CO2 24 mmol/L (21-32); CREATININE 0.3 mg/dL (0.55-1.3); GLUCOSE,RANDOM 79 mg/dL (74-106); POTASSIUM 4.3 mmol/L (3.5-5.1); SGOT/AST 18 U/L (15-37); SGPT/ALT 34 U/L (13-61); SODIUM 127 mmol/L (136-145); TOT PROT 8.3 g/dl (6.4-8.2)
[2018-04-02 20:17] LABS: URINE HYALINE CAST 32 /lpf
[2018-04-02] MEDS ORDERED: ACETAMINOPHEN INJECTION 100 ML IVPB ONE (21:07)
[2018-04-02] MEDS ORDERED: SODIUM CHLORIDE 1,000 ML IV SCH (22:00)
[2018-04-02] MEDS: ENOXAPARIN NA (PORCINE) 40 MG/0.4 ML DISP.SYRIN SQ SCH (22:07)
--- NOTE | 2018-04-02 22:16 | HP ---
CHIEF COMPLAINT: fever and tachycardia PCP: [facility] HISTORY OF PRESENT ILLNESS: 28M w/ pmhx of cerebral palsy, seizure disorder, scoliosis was sent from [facility] for fever and tachycardia. Pt is nonverbal at baseline. Limited history taken by health aide at bedside. ER course was notable for: (1) WBC 13.6, Na 127, Cl 96, Cr 0.3; U/A showed 3+ LE, WBC 218, Alk P 185 (2) Vanc 1gm, Aztreonam 1g, IV Tylenol, 1L NS given (3) CXR ordered, pending final read Recent Travel: Unable to obtain PAST MEDICAL HISTORY: CP epilepsy scoliosis PAST SURGICAL HISTORY: G tube placement scoliosis repair Social History: Smoking: None Alcohol: None Drugs: None Family History: Unable to obtain Allergies albuterol Allergy (Verified 02/13/18 22:09) Cephalosporins Allergy (Verified 02/13/18 22:09) latex Allergy (Verified 02/13/18 22:09) Penicillins Allergy (Verified 02/13/18 22:09) shrimp Allergy (Verified 02/13/18 22:09) wool Allergy (Verified 02/13/18 22:09) HOME MEDICATIONS: Home Medications Medication Instructions Recorded Carbamazepine [Tegretol -] 300 mg GT ASDIR 11/23/17 Carbamazepine [Tegretol -] 400 mg GT AM 11/23/17 Carbamazepine [Tegretol -] 400 mg GT HS 11/23/17 Clobazam [Onfi -] 10 mg GT BID 11/23/17 Diazepam [Diastat] 10 mg RC ONCE PRN 11/23/17 Fluticasone Prop 0.05% Nasal 2 spray NS HS 11/23/17 [Flonase -] Lorazepam [Ativan] 1 mg GT ASDIR PRN 11/23/17 Polyethylene Glycol 3350 [Miralax 17 gm GT ASDIR 11/23/17 119 gm Btl -] Rufinamide [Banzel] 1,600 mg GT BID 11/23/17 Zonisamide [Zonegran -] 50 mg GT HS 11/23/17 Zonisamide [Zonegran] 200 mg GT TID 11/23/17 Topiramate [Topamax] 300 mg GT DAILY 02/14/18 Carbamazepine 300 mg GT DAILY 04/02/18 Ipratropium 0.02% Nebulizer 1 amp IH QID 04/02/18 [Atrovent 0.02% Nebulizer -] Topiramate [Qudexy Xr] 400 mg PO HS 04/02/18 Topiramate [Qudexy Xr] 400 mg PO HS 04/02/18 REVIEW OF SYSTEMS Unable to obtain PHYSICAL EXAMINATION Vital Signs - 24 hr 04/02/18 19:49 Temperature 101.3 F H Pulse Rate 131 H Respiratory 24 H Rate Blood Pressure 122/85 O2 Sat by Pulse 98 Oximetry (%) GENERAL: Awake. NAD. Eyes open. HEENT: AT/NC. Face flushed and warm. KELVIN. Moist mucus membranes. Pt with tongue out of mouth. NECK: Supple, no masses, LAD. LUNGS: Congested anteriorly, poor inspiratory effort. HEART: Tachycardic, normal S1 and S2 without murmur, rub or gallop. ABDOMEN: Soft, NT/ND. +BS in all 4Q's. G tube in place, clean, dry, MUSCULOSKELETAL: B/l hands contracted. UPPER EXTREMITIES: 2+ pulses, warm, well-perfused. No cyanosis. No clubbing. No peripheral edema. LOWER EXTREMITIES: 2+ pulses, warm, well-perfused. No calf tenderness. No peripheral edema. NEUROLOGICAL: Unable to assess due to baseline mental status. PSYCHIATRIC: Cooperative. Good eye contact. Appropriate mood and affect. SKIN: Warm, dry, normal turgor, no rashes or lesions noted, normal capillary refill. CBC, BMP 04/02/18 19:20 Abnormal Lab Results 04/02/18 04/02/18 04/02/18 19:20 19:20 19:20 WBC 13.6 H Absolute Neuts (auto) 11.4 H Neutrophils % 83.8 H Lymphocytes % 7.6 L D PT with INR 13.30 H INR 1.13 H POC VBG pO2 Sodium Chloride Creatinine Alkaline Phosphatase Total Protein Ur Specific [place] 1.009 L Ur Leukocyte Esterase 3+ H 04/02/18 04/02/18 19:20 19:20 WBC Absolute Neuts (auto) Neutrophils % Lymphocytes % PT with INR INR POC VBG pO2 52.6 H Sodium 127 L Chloride 96 L Creatinine 0.3 L Alkaline Phosphatase 185 H Total Protein 8.3 H Ur Specific [place] Ur Leukocyte Esterase ASSESSMENT/PLAN: 28M w/ pmhx of cerebral palsy, epilepsy, recurrent aspiration pneumonia, scoliosis admitted for sepsis 2/2 UTI. #Sepsis 2/2 UTI, r/o aspiration pneumonia; U/A showed 3+ LE, WBC 218. Previous urine cx was +E. faecalis, previous sputum cx was +Pseudomonas aeruginosa in the past. Pt previously admitted for aspiration pneumonia and was given Vancomycin and Aztreonam. -Vancomycin 1gm IVPB QD -Aztreonam 1gm IVPB Q12H -ID consult ordered (Dr. Phipps) -blood/urine cultures ordered #Hyponatremia; Initial Na 127, now 130. May likely be due to seizure medications. -NS @ 75cc -recheck BMP in AM #Epilepsy; Monitor for seizure activity closely. Resume home meds: -Carbamazepine 400 mg AM, 300 mg noon, 400 mg HS GT QD -Clozabam 10 mg GT BID -Diazepam Rectal Gel 10 mg RC PRN -Ativan 1 mg GT PRN -Banzel 1,600 mg GT BID -Topiramate 300 mg GT QD -Topiramate 200 mg GT AM, HS -Zonisamide 200 mg GT TID -Zonisamide 50 mg GT HS #Cerebral Palsy #DVT Ppx -Lovenox 40 mg SQ QD #FEN -NS @ 75cc -recheck Na in AM -Tube Feed Osmolite; deli/bakery associate consult ordered for tube feed calculation dispo -admit to med-surg -Pt comes from [place] -medications reconciled Visit type - Emergency Visit Emergency Visit: Yes ED Registration Date: 04/02/18 Care time: The patient presented to the Emergency Department on the above date and was hospitalized for further evaluation of their emergent condition. - New Patient This patient is new to me today: Yes Date on this admission: 04/03/18 - Critical Care Critical Care patient: No
--- NOTE | 2018-04-03 00:35 | PN ---
Teaching Attending Note Name of Resident: Sridevi Hawley ATTENDING PHYSICIAN STATEMENT I saw and evaluated the patient. I reviewed the resident's note and discussed the case with the resident. I agree with the resident's findings and plan as documented. SUBJECTIVE: This is a 28 year old man with a history of CP, developmental disability, seizure disorder, scoliosis, dysphagia, functional quadriplegia who was sent to the ED from [facility] for evaluation of fever and tachycardia. OBJECTIVE: Vital Signs Period Temp Pulse Resp BP Sys/Grossman Pulse Ox Last 24 Hr 98.3 F-101.3 F 94-131 18-24 110-122/81-85 96-98 HEART: S1S2, tachycardic LUNGS: Bilateral rhonchi ABDOMEN: Soft, non-distended, normal BS, PEG site clean EXTREMITIES: No edema Laboratory Tests 04/02/18 04/02/18 04/02/18 19:20 19:20 19:20 WBC 13.6 H RBC 4.76 Hgb 15.0 Hct 45.4 MCV 95.4 MCH 31.5 MCHC 33.0 RDW 13.8 Plt Count 211 MPV 7.5 Absolute Neuts (auto) 11.4 H Neutrophils % 83.8 H Lymphocytes % 7.6 L D Monocytes % 8.0 Eosinophils % 0.4 Basophils % 0.2 Nucleated RBC % 0 PT with INR 13.30 H INR 1.13 H PTT (Actin FS) 33.9 VBG pH POC VBG pCO2 POC VBG pO2 Mixed VBG HCO3 Sodium Potassium Chloride Carbon Dioxide Anion Gap BUN Creatinine Creat Clearance w eGFR Random Glucose Lactic Acid Calcium Total Bilirubin AST ALT Alkaline Phosphatase Troponin I Total Protein Albumin Urine Color Yellow Urine Appearance Turbid Urine pH 8.0 D Ur Specific [place] 1.009 L Urine Protein Negative Urine Glucose (UA) Negative Urine Ketones Negative Urine Blood Negative Urine Nitrite Negative Urine Bilirubin Negative Urine Urobilinogen Negative Ur Leukocyte Esterase 3+ H Urine WBC (Auto) 218 Urine RBC (Auto) 32 Hyaline Casts 32 04/02/18 04/02/18 04/02/18 19:20 19:20 19:20 WBC RBC Hgb Hct MCV MCH MCHC RDW Plt Count MPV Absolute Neuts (auto) Neutrophils % Lymphocytes % Monocytes % Eosinophils % Basophils % Nucleated RBC % PT with INR INR PTT (Actin FS) VBG pH 7.40 POC VBG pCO2 40.6 D POC VBG pO2 52.6 H Mixed VBG HCO3 24.3 Sodium 127 L Potassium 4.3 Chloride 96 L Carbon Dioxide 24 Anion Gap 8 BUN 8 Creatinine 0.3 L Creat Clearance w eGFR > 60 Random Glucose 79 Lactic Acid Calcium 9.1 Total Bilirubin 0.6 AST 18 ALT 34 Alkaline Phosphatase 185 H Troponin I < 0.02 Total Protein 8.3 H Albumin 4.1 Urine Color Urine Appearance Urine pH Ur Specific [place] Urine Protein Urine Glucose (UA) Urine Ketones Urine Blood Urine Nitrite Urine Bilirubin Urine Urobilinogen Ur Leukocyte Esterase Urine WBC (Auto) Urine RBC (Auto) Hyaline Casts 04/02/18 19:20 WBC RBC Hgb Hct MCV MCH MCHC RDW Plt Count MPV Absolute Neuts (auto) Neutrophils % Lymphocytes % Monocytes % Eosinophils % Basophils % Nucleated RBC % PT with INR INR PTT (Actin FS) VBG pH POC VBG pCO2 POC VBG pO2 Mixed VBG HCO3 Sodium Potassium Chloride Carbon Dioxide Anion Gap BUN Creatinine Creat Clearance w eGFR Random Glucose Lactic Acid 1.0 Calcium Total Bilirubin AST ALT Alkaline Phosphatase Troponin I Total Protein Albumin Urine Color Urine Appearance Urine pH Ur Specific [place] Urine Protein Urine Glucose (UA) Urine Ketones Urine Blood Urine Nitrite Urine Bilirubin Urine Urobilinogen Ur Leukocyte Esterase Urine WBC (Auto) Urine RBC (Auto) Hyaline Casts Home Medications Medication Instructions Recorded Carbamazepine [Tegretol -] 300 mg GT ASDIR 11/23/17 Carbamazepine [Tegretol -] 400 mg GT AM 11/23/17 Carbamazepine [Tegretol -] 400 mg GT HS 11/23/17 Clobazam [Onfi -] 10 mg GT BID 11/23/17 Diazepam [Diastat] 10 mg RC ONCE PRN 11/23/17 Fluticasone Prop 0.05% Nasal 2 spray NS HS 11/23/17 [Flonase -] Lorazepam [Ativan] 1 mg GT ASDIR PRN 11/23/17 Polyethylene Glycol 3350 [Miralax 17 gm GT ASDIR 11/23/17 119 gm Btl -] Rufinamide [Banzel] 1,600 mg GT BID 11/23/17 Zonisamide [Zonegran -] 50 mg GT HS 11/23/17 Zonisamide [Zonegran] 200 mg GT TID 11/23/17 Topiramate [Topamax] 300 mg GT DAILY 02/14/18 Carbamazepine 300 mg GT DAILY 04/02/18 Ipratropium 0.02% Nebulizer 1 amp IH QID 04/02/18 [Atrovent 0.02% Nebulizer -] Topiramate [Qudexy Xr] 400 mg PO HS 04/02/18 Topiramate [Qudexy Xr] 400 mg PO HS 04/02/18 ASSESSMENT AND PLAN: This is a 28 year old man with a history of CP, developmental disability, seizure disorder, scoliosis, dysphagia, functional quadriplegia who presented to the ED from [facility] with fever and tachycardia. 1. Sepsis (leukocytosis, fever, tachycardia) secondary to UTI and possible aspiration pneumonia - In past, urine culture has grown Enterococcus faecalis, sputum culture has grown Pseudomonas aeruginosa, and has responded to treatment with Azactam, Vancomycin (he is allergic to PCN and cephalosporins) - Azactam and Vancomycin given in ED - will continue - IV fluid - ID consult - Follow up blood and urine cultures 2. Hyponatremia - Possibly secondary to Tegretol, SIADH - Needs IV fluid for sepsis - will give IV NS and monitor electrolytes 3. Seizure disorder - Continue Tegretol, Topamax, Zonegran, Banzel, Onfi 4. Cerebral palsy 5. Functional quadriplegia 6. Developmental disability 7. Dysphagia - Continue Jevity via G-tube
[2018-04-03] MEDS ORDERED: ACETAMINOPHEN 160 MG/5 ML 473ML BULK BOTTLE ONE (00:46)
[2018-04-03] MEDS ORDERED: diazePAM ACUDIAL 5-7.5-10 MG 1 EACH KIT RC PRN (01:55)
[2018-04-03] MEDS ORDERED: LORazepam 1 MG TABLET GT PRN (01:55)
[2018-04-03 02:16] LABS: ANION GAP 7 MMOL/L (8-16); BLOOD UREA NITROGEN 7 mg/dL (7-18); CALCIUM 8.3 mg/dL (8.5-10.1); CHLORIDE 98 mmol/L (98-107); CO2 25 mmol/L (21-32); CREATININE 0.3 mg/dL (0.55-1.3); GLUCOSE,RANDOM 95 mg/dL (74-106); POTASSIUM 4.2 mmol/L (3.5-5.1); SODIUM 130 mmol/L (136-145)
[2018-04-03] MEDS: ZONISAMIDE 100 MG/10 ML ORAL SUSPENSION GT SCH ×4 (06:11→21:44)
[2018-04-03] MEDS: carBAMazepine 200 MG/10 ML UNIT-DOSE CUP GT SCH ×3 (06:12→21:54)
[2018-04-03] MEDS ORDERED: AZTREONAM 1 GM in DEXTROSE 5%-WATER - 50 ML IVPB ONE (08:00)
[2018-04-03 08:10] LABS: BASO % 0.9 % (0-2.0); EOS % 2.6 % (0-4.5); HEMATOCRIT 39.8 % (35.4-49); HEMOGLOBIN 12.9 GM/dL (11.7-16.9); LYMPH % 21.8 % (8-40); MCH 31.4 pg (25.7-33.7); MCHC 32.3 g/dl (32.0-35.9); MEAN PLT VOLUME 7.5 fl (7.5-11.1); MONO % 9.4 % (3.8-10.2); NEUT % 65.3 % (42.8-82.8); PLATELET COUNT 159 K/MM3 (134-434); RBC 4.11 M/mm3 (4.00-5.60); RDW 13.8 % (11.9-15.9); WHITE BLOOD COUNT 5.2 K/mm3 (4.0-10.0)
--- NOTE | 2018-04-03 08:20 | PN ---
Teaching Attending Note Name of Resident: Cheyanne Chaidez ATTENDING PHYSICIAN STATEMENT I saw and evaluated the patient. I reviewed the resident's note and discussed the case with the resident. I agree with the resident's findings and plan as documented. SUBJECTIVE: Patient is lying in bed with no acute distress. OBJECTIVE: Vital Signs Temperature 97.3 F L 04/03/18 06:00 Pulse Rate 88 04/03/18 06:00 Respiratory Rate 20 04/03/18 06:00 Blood Pressure 107/71 04/03/18 06:00 O2 Sat by Pulse Oximetry (%) 96 04/03/18 02:00 HEART: S1S2, tachycardic LUNGS: Bilateral rhonchi ABDOMEN: Soft, non-distended, normal BS, PEG site clean EXTREMITIES: No edema CBCD WBC 5.2 K/mm3 (4.0-10.0) 04/03/18 07:50 RBC 4.11 M/mm3 (4.00-5.60) 04/03/18 07:50 Hgb 12.9 GM/dL (11.7-16.9) 04/03/18 07:50 Hct 39.8 % (35.4-49) 04/03/18 07:50 MCV 97.0 fl (80-96) H 04/03/18 07:50 MCHC 32.3 g/dl (32.0-35.9) 04/03/18 07:50 RDW 13.8 % (11.9-15.9) 04/03/18 07:50 Plt Count 159 K/MM3 (134-434) D 04/03/18 07:50 MPV 7.5 fl (7.5-11.1) 04/03/18 07:50 CMP Sodium 130 mmol/L (136-145) L 04/03/18 01:40 Potassium 4.2 mmol/L (3.5-5.1) 04/03/18 01:40 Chloride 98 mmol/L (98-107) 04/03/18 01:40 Carbon Dioxide 25 mmol/L (21-32) 04/03/18 01:40 Anion Gap 7 MMOL/L (8-16) L 04/03/18 01:40 BUN 7 mg/dL (7-18) 04/03/18 01:40 Creatinine 0.3 mg/dL (0.55-1.3) L 04/03/18 01:40 Creat Clearance w eGFR > 60 (>60) 04/03/18 01:40 Random Glucose 95 mg/dL (74-106) 04/03/18 01:40 Calcium 8.3 mg/dL (8.5-10.1) L 04/03/18 01:40 Total Bilirubin 0.6 mg/dL (0.2-1) 04/02/18 19:20 AST 18 U/L (15-37) 04/02/18 19:20 ALT 34 U/L (13-61) 04/02/18 19:20 Alkaline Phosphatase 185 U/L (45-117) H 04/02/18 19:20 Total Protein 8.3 g/dl (6.4-8.2) H 04/02/18 19:20 Albumin 4.1 g/dl (3.4-5.0) 04/02/18 19:20 CARDIAC ENZYMES Troponin I < 0.02 ng/ml (0.00-0.05) 04/02/18 19:20 Current Medications Generic Name Dose Route Start Last Admin Trade Name Freq PRN Reason Stop Dose Admin Carbamazepine 300 mg 04/03/18 12:00 Tegretol Oral Suspension - GT DAILY@1200 BRAD Carbamazepine 400 mg 04/03/18 07:00 04/03/18 06:12 Tegretol Oral Suspension - GT 400 mg BID@0700,2200 BRAD Administration Clobazam 10 mg 04/03/18 10:00 Onfi - GT BID BRAD Diazepam 10 mg 04/03/18 01:55 Diastat Rectal Gel - RC PRN PRN seizure Enoxaparin Sodium 40 mg 04/02/18 22:00 04/02/18 22:07 Lovenox - SQ 40 mg DAILY BRAD Administration Sodium Chloride 1,000 mls @ 75 mls/hr 04/02/18 22:00 04/02/18 22:06 Normal Saline - IV 75 mls/hr ASDIR BRAD Administration Aztreonam 1 gm/ Dextrose 50 mls @ 100 mls/hr 04/03/18 22:00 IVPB BID BRAD Protocol Aztreonam 1 gm/ Dextrose 50 mls @ 100 mls/hr 04/03/18 08:00 IVPB 04/03/18 08:29 ONCE ONE Protocol Lorazepam 1 mg 04/03/18 01:55 Ativan - GT PRN PRN seizure Non-Formulary Medication 1,600 mg 04/03/18 10:00 Rufinamide [Banzel] GT BID BRAD Non-Formulary Medication 200 mg 04/03/18 07:00 Topiramate [Qudexy Xr] GT AM BRAD Non-Formulary Medication 400 mg 04/03/18 22:00 Topiramate [Qudexy Xr] GT HS [facility] Polyethylene Glycol 17 gm 04/03/18 18:30 Miralax (For Daily Use) - GT Q2D@1830 BRAD Topiramate 300 mg 04/03/18 10:00 Topamax - GT DAILY BRAD Zonisamide 200 mg 04/03/18 06:00 04/03/18 06:11 Zonisamide GT 200 mg TID BRAD Administration Zonisamide 50 mg 04/03/18 22:00 Zonisamide GT HS [facility] Home Medications Medication Instructions Recorded Clobazam [Onfi -] 10 mg GT BID 11/23/17 Diazepam [Diastat] 10 mg RC ONCE PRN 11/23/17 Fluticasone Prop 0.05% Nasal 2 spray NS HS 11/23/17 [Flonase -] Lorazepam [Ativan] 1 mg GT ASDIR PRN 11/23/17 Polyethylene Glycol 3350 [Miralax 17 gm GT ASDIR 11/23/17 119 gm Btl -] Rufinamide [Banzel] 1,600 mg GT BID 11/23/17 Zonisamide [Zonegran -] 50 mg GT HS 11/23/17 Zonisamide [Zonegran] 200 mg GT TID 11/23/17 Topiramate [Topamax] 300 mg GT DAILY 02/14/18 Carbamazepine 300 mg GT DAILY 04/02/18 Ipratropium 0.02% Nebulizer 1 amp IH QID 04/02/18 [Atrovent 0.02% Nebulizer -] Topiramate [Qudexy Xr] 200 mg GT AM 04/02/18 Topiramate [Qudexy Xr] 400 mg GT HS 04/02/18 Carbamazepine 400 mg GT AM 04/03/18 Carbamazepine 400 mg GT HS 04/03/18 ASSESSMENT AND PLAN: This is a 28 year old man with a history of CP, developmental disability, seizure disorder, scoliosis, dysphagia, functional quadriplegia who presented to the ED from [facility] with fever and tachycardia. # Sepsis due to having UTI vs possible to aspiration pneumonia on IV Azactam ( since patient is allergic to PCN) ,and Vancomycin. ID on the case # Acute Hyponatremia 130 .continue IV fluid NS and monitor electrolytes # Seizure disorder Continue Tegretol, Topamax, Zonegran, Banzel, Onfi # Cerebral palsy # Functional quadriplegia # Developmental disability # Dysphagia Continue Jevity via G-tube DVT Px: Lovenox
[2018-04-03] MEDS ORDERED: PT OWN MED DRAWER 7, Y5N ONE ×5 (08:53→22:26)
[2018-04-03 08:58] LABS: ALBUMIN 3.2 g/dl (3.4-5.0); ALK PHOS 136 U/L (45-117); ANION GAP 4 MMOL/L (8-16); BILIRUBIN,TOTAL 0.4 mg/dL (0.2-1); BLOOD UREA NITROGEN 5 mg/dL (7-18); CALCIUM 8.2 mg/dL (8.5-10.1); CHLORIDE 103 mmol/L (98-107); CO2 24 mmol/L (21-32); CREATININE 0.2 mg/dL (0.55-1.3); GLUCOSE,RANDOM 91 mg/dL (74-106); POTASSIUM 3.7 mmol/L (3.5-5.1); SGOT/AST 14 U/L (15-37); SGPT/ALT 27 U/L (13-61); SODIUM 132 mmol/L (136-145); TOT PROT 6.3 g/dl (6.4-8.2)
[2018-04-03] MEDS: TOPIRAMATE 100 MG TABLET GT SCH (09:30)
[2018-04-03] MEDS: cloBAZam 10 MG TABLET GT SCH ×2 (09:30→21:39)
[2018-04-03] MEDS: ENOXAPARIN NA (PORCINE) 40 MG/0.4 ML DISP.SYRIN SQ SCH (09:32)
--- NOTE | 2018-04-03 12:11 | EKG ---
Test Reason : Blood Pressure : / mmHG Vent. Rate : 120 BPM Atrial Rate : 120 BPM P-R Int : 158 ms QRS Dur : 096 ms QT Int : 316 ms P-R-T Axes : 054 142 044 degrees QTc Int : 446 ms SINUS TACHYCARDIA RIGHT ATRIAL ENLARGEMENT RIGHT AXIS DEVIATION PULMONARY DISEASE PATTERN RIGHT VENTRICULAR HYPERTROPHY ABNORMAL ECG WHEN COMPARED WITH ECG OF 13-FEB-2018 23:12, INCOMPLETE RIGHT BUNDLE BRANCH BLOCK IS NO LONGER PRESENT Confirmed by EDUARDO DILL, MARISEL ([id number]) on 04/03/2018 12:11:08 PM Referred By: Confirmed By:MARISEL CLARK MD
[2018-04-03 13:05] VITALS: BMI 21.9
--- NOTE | 2018-04-03 14:01 | PN ---
Progress Note (short form) - Note Progress Note: ID Consult dictated UTI/ possible sepsis secondary to UTI Possible aspiration pneumonia PCN/ cephalosporin allergies CP/MR Pending c/s empiric vancomycin/ aztreonam Asp precautions
--- NOTE | 2018-04-03 14:49 | CONS ---
DATE OF CONSULTATION: DATE OF DICTATION: 04/03/2018 HISTORY OF PRESENT ILLNESS: The patient is a 28-year-old male with a history of cerebral palsy and mental retardation being evaluated for sepsis. The patient's history was obtained from his chart as he cannot given a history secondary to his mental status. He is a resident of [facility]. At the center, he was noted to be febrile to 101, tachycardic and dyspneic. He became hypoxemic with an O2 saturation of 94%. The patient appeared flushed. He was transferred to the emergency room where he was admitted. His course has been complicated by a fever to 101.3 and an elevated white blood cell count at 13.6. Cultures were obtained and he was empirically treated with vancomycin and aztreonam. Initial evaluation showed pyuria. A chest x-ray was negative for acute infiltrate. PAST MEDICAL HISTORY: Positive for cerebral palsy, mental retardation, seizure disorder, recurrent pneumonias and scoliosis. PAST SURGICAL HISTORY: Status post feeding gastrostomy. ALLERGIES: PENICILLIN and CEPHALOSPORINS. REVIEW OF SYSTEMS: Neurologic: Positive for cerebral palsy, mental retardation, seizure disorder. Cardiac: Negative for any arrhythmia, chest pain or palpitations. Respiratory: As per HPI. Gastrointestinal: Positive for feeding gastrostomy. Genitourinary: Positive for urinary tract infection. LABORATORY DATA: On admission, white count was 13.6; it is currently 5.2. Hematocrit 39.8, platelet count 159, BUN 5, creatinine 0.2. A urinalysis shows 218 white cells. Cultures are pending. PHYSICAL EXAMINATION: General: The patient is awake. He is not verbally responsive. Vital Signs: Temperature 97.9, T-max 101.3, pulse 98, blood pressure 102/51, respiratory rate 18 per minute. HEENT:: Sclerae anicteric. Heart: Heart sounds S1, S2. Lungs: Clear. Abdomen: Soft. No tenderness was elicited. No mass, rebound or rigidity. A feeding gastrostomy tube is present with no erythema or drainage. Extremities: Positive for 1+ edema. IMPRESSION: 1. Urinary tract infection with possible sepsis secondary to urinary tract infection. 2. Rule out aspiration pneumonia. 3. PENICILLIN and CEPHALOSPORIN allergies. 4. Cerebral palsy and mental retardation. PLAN: 1. Await sepsis workup. 2. Empiric antibiotic coverage with vancomycin and Azactam for this patient with PENICILLIN and CEPHALOSPORIN allergies. 3. Further recommendations pending cultures. 4. Aspiration precautions. Thank you for the kind referral. ALFRED WALLS M.D. SHAILA/[id number]
--- NOTE | 2018-04-03 15:12 | PN ---
Physical Exam: SUBJECTIVE: Patient seen and examined this morning at bedside. Patient non verbal at baseline. Unable to perform review of systems. Called Flores on Nurses cell phone ([phone]) who said patient sounded congested and vital signs at this time were Temp 101.3, HR 130-140's, O2 Sat 94%. OBJECTIVE: Vital Signs Period Temp Pulse Resp BP Sys/Grossman Pulse Ox Last 24 Hr 97.3 F-101.3 F 84-131 18-24 102-122/51-85 96-98 GENERAL: NAD, lying comfortably with head of bed elevated HEAD: NCAT EYES: PERRL NECK: Supple, No JVD LUNGS: Congested, poor inspiratory effort HEART: Tachycardic, S1 S2 without murmur ABDOMEN: Soft, nontender, nondistended, + bowel sounds, no guarding. G tube in place with clean, dry, surrounding dressing, no surrounding errythema EXTREMITIES: 2+ pulses, B/l hands contracted. No peripheral edema. NEUROLOGICAL: Unable to assess due to baseline mental status. SKIN: Warm, dry Laboratory Results - last 24 hr 04/02/18 04/03/18 04/03/18 19:20 01:40 07:50 WBC 5.2 RBC 4.11 Hgb 12.9 Hct 39.8 MCV 97.0 H MCH 31.4 MCHC 32.3 RDW 13.8 Plt Count 159 D MPV 7.5 Absolute Neuts (auto) 3.4 Neutrophils % 65.3 D Lymphocytes % 21.8 D Monocytes % 9.4 Eosinophils % 2.6 D Basophils % 0.9 D Nucleated RBC % 0 PT with INR INR PTT (Actin FS) VBG pH POC VBG pCO2 POC VBG pO2 Mixed VBG HCO3 Sodium 130 L Potassium 4.2 Chloride 98 Carbon Dioxide 25 Anion Gap 7 L BUN 7 Creatinine 0.3 L Creat Clearance w eGFR > 60 Random Glucose 95 Lactic Acid 1.0 Calcium 8.3 L Total Bilirubin AST ALT Alkaline Phosphatase Troponin I Total Protein Albumin Urine Color Urine Appearance Urine pH Ur Specific Casanova Urine Protein Urine Glucose (UA) Urine Ketones Urine Blood Urine Nitrite Urine Bilirubin Urine Urobilinogen Ur Leukocyte Esterase Urine WBC (Auto) Urine RBC (Auto) Hyaline Casts 04/03/18 07:50 WBC RBC Hgb Hct MCV MCH MCHC RDW Plt Count MPV Absolute Neuts (auto) Neutrophils % Lymphocytes % Monocytes % Eosinophils % Basophils % Nucleated RBC % PT with INR INR PTT (Actin FS) VBG pH POC VBG pCO2 POC VBG pO2 Mixed VBG HCO3 Sodium 132 L Potassium 3.7 Chloride 103 Carbon Dioxide 24 Anion Gap 4 L BUN 5 L Creatinine 0.2 L Creat Clearance w eGFR > 60 Random Glucose 91 Lactic Acid Calcium 8.2 L Total Bilirubin 0.4 AST 14 L ALT 27 Alkaline Phosphatase 136 H Troponin I Total Protein 6.3 L Albumin 3.2 L Urine Color Urine Appearance Urine pH Ur Specific Casanova Urine Protein Urine Glucose (UA) Urine Ketones Urine Blood Urine Nitrite Urine Bilirubin Urine Urobilinogen Ur Leukocyte Esterase Urine WBC (Auto) Urine RBC (Auto) Hyaline Casts Microbiology 04/02/18 19:20 Nasopharyngeal Swab Influenza Types A,B Antigen - Final 04/02/18 19:20 Nasopharyngeal Swab - Final Active Medications Carbamazepine (Tegretol Oral Suspension -) 300 mg GT DAILY@1200 [facility] Last Admin: 04/03/18 13:03 Dose: 300 mg Carbamazepine (Tegretol Oral Suspension -) 400 mg GT BID@0700,2200 [facility] Last Admin: 04/03/18 06:12 Dose: 400 mg Clobazam (Onfi -) 10 mg GT BID [facility] Last Admin: 04/03/18 09:30 Dose: 10 mg Diazepam (Diastat Rectal Gel -) 10 mg RC PRN PRN PRN Reason: seizure Enoxaparin Sodium (Lovenox -) 40 mg SQ DAILY [facility] Last Admin: 04/03/18 09:32 Dose: 40 mg Vancomycin HCl (Vancomycin (Pre-Docked)) 1,000 mg in 250 mls @ 166.667 mls/hr IVPB Q12H [facility]; Protocol Aztreonam 1 gm/ Dextrose 50 mls @ 100 mls/hr IVPB Q8H-IV [facility]; Protocol Sodium Chloride (Normal Saline -) 1,000 mls @ 42 mls/hr IV ASDIR [facility] Lorazepam (Ativan -) 1 mg GT PRN PRN PRN Reason: seizure Non-Formulary Medication (Rufinamide [Banzel]) 1,600 mg GT BID [facility] Non-Formulary Medication (Topiramate [Qudexy Xr]) 200 mg GT AM [facility] Non-Formulary Medication (Topiramate [Qudexy Xr]) 400 mg GT HS [facility] Polyethylene Glycol (Miralax (For Daily Use) -) 17 gm GT Q2D@1830 [facility] Topiramate (Topamax -) 300 mg GT DAILY [facility] Last Admin: 04/03/18 09:30 Dose: 300 mg Zonisamide (Zonisamide) 200 mg GT TID [facility] Last Admin: 04/03/18 13:04 Dose: 200 mg Zonisamide (Zonisamide) 50 mg GT HS [facility] IMAGING: -CXR: Since 02/15/2018, again noted is a scoliosis with spinal support rods, stimulator device, prominent mediastinum and dense left base. Correlation recommended. ASSESSMENT/PLAN: 28 y/o M with PMHx of cerebral palsy, epilepsy, recurrent aspiration pneumonia, scoliosis admitted for Sepsis 1. Sepsis -Temp 101.3, HR 131, UA: 3+ LE 218 WBC -Likely due to UTI; r/o aspiration pneumonia given aspiration hx -ID consult ordered (Dr. Benoit) -Continue Vancomycin and Aztreonam (Started 04/02) -Continue IV NS @ 42 mls/hr -Blood and Urine cx's pending 2. Hyponatremia -Na 127 on admission, 132 this am -Continue IV NS @ 42 mls/hr -Continue to monitor 3. Hx of Epilepsy -Monitor closely for seizure activity and possibly aspiration, Continue home meds -Carbamazepine 400 mg AM, 300 mg noon, 400 mg HS GT QD -Clozabam 10 mg GT BID -Diazepam Rectal Gel 10 mg RC PRN -Ativan 1 mg GT PRN -Banzel 1,600 mg GT BID -Topiramate 300 mg GT QD -Topiramate 200 mg GT AM, HS -Zonisamide 200 mg GT TID -Zonisamide 50 mg GT HS 4. FEN -IV NS @ 42 mls/hr -Hyponatremia improving -Tube Feed Osmolite 5. PPx -DVT: Lovenox Dispo: admit to med-surg Visit type - Emergency Visit Emergency Visit: Yes ED Registration Date: 04/02/18 Care time: The patient presented to the Emergency Department on the above date and was hospitalized for further evaluation of their emergent condition. - New Patient This patient is new to me today: Yes Date on this admission: 04/03/18 - Critical Care Critical Care patient: No - Discharge Referral Referred to [facility] Med P.C.: No
[2018-04-03] MEDS: VANCOMYCIN 1 GRAM (PRE-DOCKED) 1,000 MG/250 ML BAG IVPB SCH (15:56)
[2018-04-03] MEDS: SODIUM CHLORIDE 1,000 ML IV SCH (15:59)
[2018-04-03] MEDS: AZTREONAM 1 GM in DEXTROSE 5%-WATER - 50 ML IVPB SCH (17:15)
[2018-04-03] MEDS: POLYETHYLENE GLYCOL 3350 119 GM BTL GT SCH (17:55)
[2018-04-03 18:05] LABS: ANION GAP 7 MMOL/L (8-16); BLOOD UREA NITROGEN 5 mg/dL (7-18); CHLORIDE 102 mmol/L (98-107); CO2 24 mmol/L (21-32); CREATININE 0.2 mg/dL (0.55-1.3); GLUCOSE,RANDOM 123 mg/dL (74-106); MAGNESIUM 1.9 mg/dL (1.8-2.4); PHOSPHOROUS 3.6 mg/dL (2.5-4.9); POTASSIUM 4.1 mmol/L (3.5-5.1); SODIUM 133 mmol/L (136-145)
[2018-04-03] MEDS: TOPIRAMATE GT SCH ×2 (20:20→21:45)
--- NOTE | 2018-04-03 21:37 | PN ---
Teaching Attending Note Name of Resident: Cheyanne Chaidez ATTENDING PHYSICIAN STATEMENT I saw and evaluated the patient. I reviewed the resident's note and discussed the case with the resident. I agree with the resident's findings and plan as documented. SUBJECTIVE: PATIENT IS better today. OBJECTIVE: Vital Signs Temperature 98.6 F 04/03/18 20:00 Pulse Rate 106 H 04/03/18 20:00 Respiratory Rate 20 04/03/18 20:00 Blood Pressure 110/74 04/03/18 20:00 O2 Sat by Pulse Oximetry (%) 96 04/03/18 20:22 HEART: S1S2, tachycardic LUNGS: Bilateral rhonchi ABDOMEN: Soft, non-distended, normal BS, PEG site clean EXTREMITIES: No edema CBCD WBC 5.2 K/mm3 (4.0-10.0) 04/03/18 07:50 RBC 4.11 M/mm3 (4.00-5.60) 04/03/18 07:50 Hgb 12.9 GM/dL (11.7-16.9) 04/03/18 07:50 Hct 39.8 % (35.4-49) 04/03/18 07:50 MCV 97.0 fl (80-96) H 04/03/18 07:50 MCHC 32.3 g/dl (32.0-35.9) 04/03/18 07:50 RDW 13.8 % (11.9-15.9) 04/03/18 07:50 Plt Count 159 K/MM3 (134-434) D 04/03/18 07:50 MPV 7.5 fl (7.5-11.1) 04/03/18 07:50 CMP Sodium 133 mmol/L (136-145) L 04/03/18 16:30 Potassium 4.1 mmol/L (3.5-5.1) 04/03/18 16:30 Chloride 102 mmol/L (98-107) 04/03/18 16:30 Carbon Dioxide 24 mmol/L (21-32) 04/03/18 16:30 Anion Gap 7 MMOL/L (8-16) L 04/03/18 16:30 BUN 5 mg/dL (7-18) L 04/03/18 16:30 Creatinine 0.2 mg/dL (0.55-1.3) L 04/03/18 16:30 Creat Clearance w eGFR > 60 (>60) 04/03/18 16:30 Random Glucose 123 mg/dL (74-106) H 04/03/18 16:30 Calcium 8.0 mg/dL (8.5-10.1) L 04/03/18 16:30 Total Bilirubin 0.4 mg/dL (0.2-1) 04/03/18 07:50 AST 14 U/L (15-37) L 04/03/18 07:50 ALT 27 U/L (13-61) 04/03/18 07:50 Alkaline Phosphatase 136 U/L (45-117) H 04/03/18 07:50 Total Protein 6.3 g/dl (6.4-8.2) L 04/03/18 07:50 Albumin 3.2 g/dl (3.4-5.0) L 04/03/18 07:50 CARDIAC ENZYMES Troponin I < 0.02 ng/ml (0.00-0.05) 04/02/18 19:20 Current Medications Generic Name Dose Route Start Last Admin Trade Name Freq PRN Reason Stop Dose Admin Carbamazepine 300 mg 04/03/18 12:00 04/03/18 13:03 Tegretol Oral Suspension - GT 300 mg DAILY@1200 [facility] Administration Carbamazepine 400 mg 04/03/18 07:00 04/03/18 06:12 Tegretol Oral Suspension - GT 400 mg BID@0700,2200 [facility] Administration Clobazam 10 mg 04/03/18 10:00 04/03/18 09:30 Onfi - GT 10 mg BID [facility] Administration Diazepam 10 mg 04/03/18 01:55 Diastat Rectal Gel - RC PRN PRN seizure Enoxaparin Sodium 40 mg 04/02/18 22:00 04/03/18 09:32 Lovenox - SQ 40 mg DAILY [facility] Administration Vancomycin HCl 1,000 mg in 250 mls @ 166.667 mls/hr 04/03/18 15:00 04/03/18 15:56 Vancomycin (Pre-Docked) IVPB 166.667 mls/hr Q12H [facility] Administration Protocol Aztreonam 1 gm/ Dextrose 50 mls @ 100 mls/hr 04/03/18 18:00 04/03/18 17:15 IVPB 100 mls/hr Q8H-IV [facility] Administration Protocol Sodium Chloride 1,000 mls @ 42 mls/hr 04/03/18 15:10 04/03/18 15:59 Normal Saline - IV 42 mls/hr ASDIR [facility] Administration Lorazepam 1 mg 04/03/18 01:55 Ativan - GT PRN PRN seizure Ptnt's Own Med( 1,600 mg 04/03/18 22:00 Rufinamide [Banzel] GT 1,600 Mg) BID BRAD [facility]nt's Own Med ( 200 mg 04/03/18 07:00 04/03/18 20:20 Topiramate [Qudexy GT Not Given Xr] 200 Mg) AM BRAD Ptnt's Own Med( 400 mg 04/03/18 22:00 Topiramate [Qudexy GT Xr] 400 Mg) [facility] Polyethylene Glycol 17 gm 04/03/18 18:30 04/03/18 17:55 Miralax (For Daily Use) - GT 17 grams Q2D@1830 [facility] Administration Topiramate 300 mg 04/03/18 10:00 04/03/18 09:30 Topamax - GT 300 mg DAILY [facility] Administration Zonisamide 200 mg 04/03/18 06:00 04/03/18 13:04 Zonisamide GT 200 mg TID [facility] Administration Zonisamide 50 mg 04/03/18 22:00 Zonisamide GT [facility] Home Medications Medication Instructions Recorded Clobazam [Onfi -] 10 mg GT BID 11/23/17 Diazepam [Diastat] 10 mg RC ONCE PRN 11/23/17 Fluticasone Prop 0.05% Nasal 2 spray NS 11/23/17 [Flonase -] Lorazepam [Ativan] 1 mg GT ASDIR PRN 11/23/17 Polyethylene Glycol 3350 [Miralax 17 gm GT ASDIR 11/23/17 119 gm Btl -] Rufinamide [Banzel] 1,600 mg GT BID 11/23/17 Zonisamide [Zonegran -] 50 mg GT 11/23/17 Zonisamide [Zonegran] 200 mg GT TID 11/23/17 Topiramate [Topamax] 300 mg GT DAILY 02/14/18 Carbamazepine 300 mg GT DAILY 04/02/18 Ipratropium 0.02% Nebulizer 1 amp IH QID 04/02/18 [Atrovent 0.02% Nebulizer -] Topiramate [Qudexy Xr] 200 mg GT AM 04/02/18 Topiramate [Qudexy Xr] 400 mg GT HS 04/02/18 Carbamazepine 400 mg GT AM 04/03/18 Carbamazepine 400 mg GT HS 04/03/18 Microbiology 04/02/18 19:20 Blood - Peripheral Venous Blood Culture - Preliminary NO GROWTH OBTAINED AFTER 48 HOURS, INCUBATION TO CONTINUE FOR 3 DAYS. 04/02/18 19:20 Blood - Peripheral Venous Blood Culture - Preliminary NO GROWTH OBTAINED AFTER 48 HOURS, INCUBATION TO CONTINUE FOR 3 DAYS. 04/02/18 19:55 Urine - Urine - Catheterized Urine Culture - Preliminary Group D Strep Or Entero Coccus 04/02/18 19:20 Nasopharyngeal Swab Influenza Types A,B Antigen - Final 04/02/18 19:20 Nasopharyngeal Swab - Final ASSESSMENT AND PLAN: This is a 28 year old man with a history of CP, developmental disability, seizure disorder, scoliosis, dysphagia, functional quadriplegia who presented to the ED from [facility] with fever and tachycardia. # Sepsis improving due to having UTI vs possible to aspiration pneumonia on IV Azactam ( since patient is allergic to PCN) ,and Vancomycin. ID on the case # Acute Hyponatremia 130-->133 today continue IV fluid NS and monitor electrolytes # Seizure disorder Continue Tegretol, Topamax, Zonegran, Banzel, Onfi # Cerebral palsy # Functional quadriplegia # Developmental disability # Dysphagia Continue Jevity via G-tube DVT Px: Lovenox
[2018-04-03] MEDS: RUFINAMIDE GT SCH (21:40)
[2018-04-03] MEDS ORDERED: CARBAMAZEPINE 400 MG GT SCH (22:00)
[2018-04-03] MEDS ORDERED: AZTREONAM 1 GM in DEXTROSE 5%-WATER - 50 ML IVPB SCH (22:00)
[2018-04-04] MEDS ORDERED: PT OWN MED DRAWER 7, Y5N ONE ×4 (02:22→17:01)
[2018-04-04] MEDS: AZTREONAM 1 GM in DEXTROSE 5%-WATER - 50 ML IVPB SCH ×3 (02:35→18:45)
[2018-04-04] MEDS: VANCOMYCIN 1 GRAM (PRE-DOCKED) 1,000 MG/250 ML BAG IVPB SCH ×2 (03:23→16:44)
[2018-04-04] MEDS: TOPIRAMATE GT SCH ×2 (06:02→22:22)
[2018-04-04] MEDS: carBAMazepine 200 MG/10 ML UNIT-DOSE CUP GT SCH ×3 (06:03→22:22)
[2018-04-04] MEDS: ZONISAMIDE 100 MG/10 ML ORAL SUSPENSION GT SCH ×4 (06:03→22:24)
[2018-04-04 07:13] LABS: BASO % 0.7 % (0-2.0); EOS % 2.9 % (0-4.5); HEMATOCRIT 40.5 % (35.4-49); HEMOGLOBIN 13.4 GM/dL (11.7-16.9); LYMPH % 23.4 % (8-40); MCH 32.2 pg (25.7-33.7); MEAN CELL VOLUME 97.5 fl (80-96); MEAN PLT VOLUME 7.5 fl (7.5-11.1); MONO % 9.1 % (3.8-10.2); NEUT % 63.9 % (42.8-82.8); PLATELET COUNT 186 K/MM3 (134-434); RBC 4.16 M/mm3 (4.00-5.60); RDW 13.6 % (11.9-15.9); WHITE BLOOD COUNT 6.6 K/mm3 (4.0-10.0)
[2018-04-04 07:51] LABS: ALBUMIN 3.2 g/dl (3.4-5.0); ALK PHOS 146 U/L (45-117); ANION GAP 8 MMOL/L (8-16); BILIRUBIN,TOTAL 0.4 mg/dL (0.2-1); BLOOD UREA NITROGEN 7 mg/dL (7-18); CALCIUM 8.1 mg/dL (8.5-10.1); CHLORIDE 104 mmol/L (98-107); CO2 23 mmol/L (21-32); CREATININE 0.3 mg/dL (0.55-1.3); GLUCOSE,RANDOM 102 mg/dL (74-106); MAGNESIUM 1.9 mg/dL (1.8-2.4); PHOSPHOROUS 4.5 mg/dL (2.5-4.9); POTASSIUM 3.8 mmol/L (3.5-5.1); SGOT/AST 17 U/L (15-37); SGPT/ALT 28 U/L (13-61); SODIUM 135 mmol/L (136-145); TOT PROT 6.8 g/dl (6.4-8.2)
[2018-04-04] MEDS: ENOXAPARIN NA (PORCINE) 40 MG/0.4 ML DISP.SYRIN SQ SCH (09:17)
[2018-04-04] MEDS: RUFINAMIDE GT SCH ×2 (09:17→22:21)
[2018-04-04] MEDS: cloBAZam 10 MG TABLET GT SCH ×2 (09:17→22:24)
[2018-04-04] MEDS: TOPIRAMATE 100 MG TABLET GT SCH (09:19)
--- NOTE | 2018-04-04 13:49 | PN ---
Progress Note, Physician History of Present Illness: Awake, non verbal Breathing non-labored Temps down Afebrile BC (-) Urine c/s Enterococcal sp. - Current Medication List Current Medications: Active Medications Carbamazepine (Tegretol Oral Suspension -) 300 mg GT DAILY@1200 [facility] Last Admin: 04/04/18 12:58 Dose: 300 mg Carbamazepine (Tegretol Oral Suspension -) 400 mg GT BID@0700,2200 [facility] Last Admin: 04/04/18 06:03 Dose: 400 mg Clobazam (Onfi -) 10 mg GT BID [facility] Last Admin: 04/04/18 09:17 Dose: 10 mg Diazepam (Diastat Rectal Gel -) 10 mg RC PRN PRN PRN Reason: seizure Enoxaparin Sodium (Lovenox -) 40 mg SQ DAILY [facility] Last Admin: 04/04/18 09:17 Dose: 40 mg Vancomycin HCl (Vancomycin (Pre-Docked)) 1,000 mg in 250 mls @ 166.667 mls/hr IVPB Q12H [facility]; Protocol Last Admin: 04/04/18 03:23 Dose: 166.667 mls/hr Aztreonam 1 gm/ Dextrose 50 mls @ 100 mls/hr IVPB Q8H-IV [facility]; Protocol Last Admin: 04/04/18 09:16 Dose: 100 mls/hr Sodium Chloride (Normal Saline -) 1,000 mls @ 42 mls/hr IV ASDIR [facility] Last Admin: 04/03/18 15:59 Dose: 42 mls/hr Lorazepam (Ativan -) 1 mg GT PRN PRN PRN Reason: seizure Ptnt's Own Med( Rufinamide [Banzel] 1,600 Mg) 1,600 mg GT BID [facility] Last Admin: 04/04/18 09:17 Dose: 1,600 mg Ptnt's Own Med ( Topiramate [Qudexy Xr] 200 Mg) 200 mg GT AM [facility] Last Admin: 04/04/18 06:02 Dose: 200 mg Ptnt's Own Med( Topiramate [Qudexy Xr] 400 Mg) 400 mg GT HS [facility] Last Admin: 04/03/18 21:45 Dose: 400 mg Polyethylene Glycol (Miralax (For Daily Use) -) 17 gm GT Q2D@1830 [facility] Last Admin: 04/03/18 17:55 Dose: 17 grams Topiramate (Topamax -) 300 mg GT DAILY [facility] Last Admin: 04/04/18 09:19 Dose: 300 mg Zonisamide (Zonisamide) 200 mg GT TID [facility] Last Admin: 04/04/18 13:00 Dose: 200 mg Zonisamide (Zonisamide) 50 mg GT HS [facility] Last Admin: 04/03/18 21:44 Dose: 50 mg - Objective Vital Signs: Vital Signs Temperature 97.3 F L 04/04/18 08:39 Pulse Rate 97 H 04/04/18 08:39 Respiratory Rate 20 04/04/18 08:39 Blood Pressure 101/64 04/04/18 08:39 O2 Sat by Pulse Oximetry (%) 96 04/04/18 09:41 Constitutional: Yes: No Distress Cardiovascular: Yes: Regular Rate and Rhythm, S1, S2 Respiratory: Yes: Diminished Gastrointestinal: Yes: Normal Bowel Sounds, Soft. No: Tenderness Edema: No Labs: CBC, BMP 04/04/18 06:00 04/04/18 06:00 INR, PTT INR 1.13 (0.83-1.09) H 04/02/18 19:20 Assessment/Plan UTI / Sepsis secondary to UTI ? Asp pneumonia PCN/Cephalosporin allergies CP/MR Await c/s Continue vancomycin /aztreonam
--- NOTE | 2018-04-04 15:05 | PN ---
Physical Exam: SUBJECTIVE: Patient seen and examined this morning at bedside. Patient non verbal at baseline. No overnight events as per nursing. Unable to perform review of systems. OBJECTIVE: Vital Signs Period Temp Pulse Resp BP Sys/Grossman Pulse Ox Last 24 Hr 97.3 F-99.0 F 88-106 18-20 101-110/63-74 96-96 GENERAL: NAD, lying comfortably with head of bed elevated HEAD: NCAT EYES: PERRL NECK: Supple, No JVD LUNGS: Congested, poor inspiratory effort HEART: RRR, S1 S2 without murmur ABDOMEN: Soft, nontender, nondistended, + bowel sounds, no guarding. G tube in place with clean, dry surrounding dressing, no surrounding erythema EXTREMITIES: 2+ pulses, B/l hands contracted. No peripheral edema. NEUROLOGICAL: Unable to assess due to baseline mental status. SKIN: Warm, dry Laboratory Results - last 24 hr 04/03/18 04/04/18 04/04/18 16:30 06:00 06:00 WBC 6.6 RBC 4.16 Hgb 13.4 Hct 40.5 MCV 97.5 H MCH 32.2 MCHC 33.0 RDW 13.6 Plt Count 186 MPV 7.5 Absolute Neuts (auto) 4.2 Neutrophils % 63.9 Lymphocytes % 23.4 Monocytes % 9.1 Eosinophils % 2.9 Basophils % 0.7 Nucleated RBC % 0 Sodium 133 L 135 L Potassium 4.1 3.8 Chloride 102 104 Carbon Dioxide 24 23 Anion Gap 7 L 8 BUN 5 L 7 Creatinine 0.2 L 0.3 L Creat Clearance w eGFR > 60 > 60 Random Glucose 123 H 102 Calcium 8.0 L 8.1 L Phosphorus 3.6 4.5 Magnesium 1.9 1.9 Total Bilirubin 0.4 AST 17 ALT 28 Alkaline Phosphatase 146 H Total Protein 6.8 Albumin 3.2 L Microbiology 04/02/18 19:55 Urine - Urine - Catheterized Urine Culture - Preliminary Group D Strep Or Entero Coccus 04/02/18 19:20 Blood - Peripheral Venous Blood Culture - Preliminary NO GROWTH OBTAINED AFTER 24 HOURS, INCUBATION TO CONTINUE FOR 4 DAYS. 04/02/18 19:20 Blood - Peripheral Venous Blood Culture - Preliminary NO GROWTH OBTAINED AFTER 24 HOURS, INCUBATION TO CONTINUE FOR 4 DAYS. 04/02/18 19:20 Nasopharyngeal Swab Influenza Types A,B Antigen - Final 04/02/18 19:20 Nasopharyngeal Swab - Final Active Medications Carbamazepine (Tegretol Oral Suspension -) 300 mg GT DAILY@1200 [facility] Last Admin: 04/04/18 12:58 Dose: 300 mg Carbamazepine (Tegretol Oral Suspension -) 400 mg GT BID@0700,2200 [facility] Last Admin: 04/04/18 06:03 Dose: 400 mg Clobazam (Onfi -) 10 mg GT BID [facility] Last Admin: 04/04/18 09:17 Dose: 10 mg Diazepam (Diastat Rectal Gel -) 10 mg RC PRN PRN PRN Reason: seizure Enoxaparin Sodium (Lovenox -) 40 mg SQ DAILY [facility] Last Admin: 04/04/18 09:17 Dose: 40 mg Vancomycin HCl (Vancomycin (Pre-Docked)) 1,000 mg in 250 mls @ 166.667 mls/hr IVPB Q12H [facility]; Protocol Last Admin: 04/04/18 03:23 Dose: 166.667 mls/hr Aztreonam 1 gm/ Dextrose 50 mls @ 100 mls/hr IVPB Q8H-IV [facility]; Protocol Last Admin: 04/04/18 09:16 Dose: 100 mls/hr Sodium Chloride (Normal Saline -) 1,000 mls @ 42 mls/hr IV ASDIR [facility] Last Admin: 04/03/18 15:59 Dose: 42 mls/hr Lorazepam (Ativan -) 1 mg GT PRN PRN PRN Reason: seizure Ptnt's Own Med( Rufinamide [Banzel] 1,600 Mg) 1,600 mg GT BID [facility] Last Admin: 04/04/18 09:17 Dose: 1,600 mg Ptnt's Own Med ( Topiramate [Qudexy Xr] 200 Mg) 200 mg GT AM [facility] Last Admin: 04/04/18 06:02 Dose: 200 mg Ptnt's Own Med( Topiramate [Qudexy Xr] 400 Mg) 400 mg GT HS [facility] Last Admin: 04/03/18 21:45 Dose: 400 mg Polyethylene Glycol (Miralax (For Daily Use) -) 17 gm GT Q2D@1830 [facility] Last Admin: 04/03/18 17:55 Dose: 17 grams Topiramate (Topamax -) 300 mg GT DAILY [facility] Last Admin: 04/04/18 09:19 Dose: 300 mg Zonisamide (Zonisamide) 200 mg GT TID [facility] Last Admin: 04/04/18 13:00 Dose: 200 mg Zonisamide (Zonisamide) 50 mg GT HS [facility] Last Admin: 04/03/18 21:44 Dose: 50 mg IMAGING: -CXR: Since 02/15/2018, again noted is a scoliosis with spinal support rods, stimulator device, prominent mediastinum and dense left base. Correlation recommended. ASSESSMENT/PLAN: 28 y/o M with PMHx of cerebral palsy, epilepsy, recurrent aspiration pneumonia, scoliosis admitted for Sepsis 1. Sepsis -On Admission, Temp 101.3, HR 131, UA: 3+ LE 218 WBC -Since admission, Afebrile, WBC resolved -Likely due to UTI; r/o aspiration pneumonia given aspiration hx -ID consult ordered (Dr. Benoit) -Continue Vancomycin and Aztreonam (Started 04/02) -Continue IV NS @ 42 mls/hr -Blood and Urine cx's pending 2. Hyponatremia -Na 127 on admission, 135 this am -Continue IV NS @ 42 mls/hr -Continue to monitor 3. Hx of Epilepsy -Monitor closely for seizure activity and possibly aspiration, Continue home meds -Carbamazepine 400 mg AM, 300 mg noon, 400 mg HS GT QD -Clozabam 10 mg GT BID -Diazepam Rectal Gel 10 mg RC PRN -Ativan 1 mg GT PRN -Banzel 1,600 mg GT BID -Topiramate 300 mg GT QD -Topiramate 200 mg GT AM, HS -Zonisamide 200 mg GT TID -Zonisamide 50 mg GT HS 4. FEN -IV NS @ 42 mls/hr -Hyponatremia improving -Tube Feed Osmolite 5. PPx -DVT: Lovenox Dispo: admit to med-surg Visit type - Emergency Visit Emergency Visit: Yes ED Registration Date: 04/02/18 Care time: The patient presented to the Emergency Department on the above date and was hospitalized for further evaluation of their emergent condition. - New Patient This patient is new to me today: No - Critical Care Critical Care patient: No - Discharge Referral Referred to [facility] Med P.C.: No
[2018-04-04] MEDS: SODIUM CHLORIDE 1,000 ML IV SCH (16:44)
--- NOTE | 2018-04-04 22:12 | PN ---
Teaching Attending Note Name of Resident: Cheyanne Chaidez ATTENDING PHYSICIAN STATEMENT I saw and evaluated the patient. I reviewed the resident's note and discussed the case with the resident. I agree with the resident's findings and plan as documented. SUBJECTIVE: Patient is feeling better with no acute distress. No fever or chills, no shortness of breath. OBJECTIVE: Vital Signs Temperature 98.9 F 04/04/18 20:47 Pulse Rate 92 H 04/04/18 20:47 Respiratory Rate 24 H 04/04/18 20:47 Blood Pressure 109/69 04/04/18 20:47 O2 Sat by Pulse Oximetry (%) 98 04/04/18 20:47 HEART: S1S2, tachycardic LUNGS: Bilateral rhonchi ABDOMEN: Soft, non-distended, normal BS, PEG site clean EXTREMITIES: No edema CBCD WBC 6.6 K/mm3 (4.0-10.0) 04/04/18 06:00 RBC 4.16 M/mm3 (4.00-5.60) 04/04/18 06:00 Hgb 13.4 GM/dL (11.7-16.9) 04/04/18 06:00 Hct 40.5 % (35.4-49) 04/04/18 06:00 MCV 97.5 fl (80-96) H 04/04/18 06:00 MCHC 33.0 g/dl (32.0-35.9) 04/04/18 06:00 RDW 13.6 % (11.9-15.9) 04/04/18 06:00 Plt Count 186 K/MM3 (134-434) 04/04/18 06:00 MPV 7.5 fl (7.5-11.1) 04/04/18 06:00 CMP Sodium 135 mmol/L (136-145) L 04/04/18 06:00 Potassium 3.8 mmol/L (3.5-5.1) 04/04/18 06:00 Chloride 104 mmol/L (98-107) 04/04/18 06:00 Carbon Dioxide 23 mmol/L (21-32) 04/04/18 06:00 Anion Gap 8 MMOL/L (8-16) 04/04/18 06:00 BUN 7 mg/dL (7-18) 04/04/18 06:00 Creatinine 0.3 mg/dL (0.55-1.3) L 04/04/18 06:00 Creat Clearance w eGFR > 60 (>60) 04/04/18 06:00 Random Glucose 102 mg/dL (74-106) 04/04/18 06:00 Calcium 8.1 mg/dL (8.5-10.1) L 04/04/18 06:00 Total Bilirubin 0.4 mg/dL (0.2-1) 04/04/18 06:00 AST 17 U/L (15-37) 04/04/18 06:00 ALT 28 U/L (13-61) 04/04/18 06:00 Alkaline Phosphatase 146 U/L (45-117) H 04/04/18 06:00 Total Protein 6.8 g/dl (6.4-8.2) 04/04/18 06:00 Albumin 3.2 g/dl (3.4-5.0) L 04/04/18 06:00 CARDIAC ENZYMES Troponin I < 0.02 ng/ml (0.00-0.05) 04/02/18 19:20 Current Medications Generic Name Dose Route Start Last Admin Trade Name Freq PRN Reason Stop Dose Admin Carbamazepine 300 mg 04/03/18 12:00 04/04/18 12:58 Tegretol Oral Suspension - GT 300 mg DAILY@1200 [facility] Administration Carbamazepine 400 mg 04/03/18 07:00 04/04/18 06:03 Tegretol Oral Suspension - GT 400 mg BID@0700,2200 [facility] Administration Clobazam 10 mg 04/03/18 10:00 04/04/18 09:17 Onfi - GT 10 mg BID BRAD Administration Diazepam 10 mg 04/03/18 01:55 Diastat Rectal Gel - RC PRN PRN seizure Enoxaparin Sodium 40 mg 04/02/18 22:00 04/04/18 09:17 Lovenox - SQ 40 mg DAILY BRAD Administration Vancomycin HCl 1,000 mg in 250 mls @ 166.667 mls/hr 04/03/18 15:00 04/04/18 16:44 Vancomycin (Pre-Docked) IVPB 166.667 mls/hr Q12H [facility] Administration Protocol Aztreonam 1 gm/ Dextrose 50 mls @ 100 mls/hr 04/03/18 18:00 04/04/18 18:45 IVPB 100 mls/hr Q8H-IV [facility]AD Administration Protocol Sodium Chloride 1,000 mls @ 42 mls/hr 04/03/18 15:10 04/04/18 16:44 Normal Saline - IV 42 mls/hr ASDIR [facility] Administration Lorazepam 1 mg 04/03/18 01:55 Ativan - GT PRN PRN seizure Ptnt's Own Med( 1,600 mg 04/03/18 22:00 04/04/18 09:17 Rufinamide [Banzel] GT 1,600 mg 1,600 Mg) BID BRAD Administration Ptnt's Own Med ( 200 mg 04/03/18 07:00 04/04/18 06:02 Topiramate [Qudexy GT 200 mg Xr] 200 Mg) AM BRAD Administration Ptnt's Own Med( 400 mg 04/03/18 22:00 04/03/18 21:45 Topiramate [Qudexy GT 400 mg Xr] 400 Mg) HS BRAD Administration Polyethylene Glycol 17 gm 04/03/18 18:30 04/03/18 17:55 Miralax (For Daily Use) - GT 17 grams Q2D@1830 [facility] Administration Topiramate 300 mg 04/03/18 10:00 04/04/18 09:19 Topamax - GT 300 mg DAILY [facility]AD Administration Zonisamide 200 mg 04/03/18 06:00 04/04/18 13:00 Zonisamide GT 200 mg TID BRAD Administration Zonisamide 50 mg 04/03/18 22:00 04/03/18 21:44 Zonisamide GT 50 mg HS BRAD Administration Home Medications Medication Instructions Recorded RX: Clobazam [Onfi -] 10 mg GT BID 11/23/17 RX: Diazepam [Diastat] 10 mg RC ONCE PRN 11/23/17 RX: Fluticasone Prop 0.05% Nasal 2 spray NS HS 11/23/17 [Flonase -] RX: Lorazepam [Ativan] 1 mg GT ASDIR PRN 11/23/17 RX: Polyethylene Glycol 3350 17 gm GT ASDIR 11/23/17 [Miralax 119 gm Btl -] RX: Rufinamide [Banzel] 1,600 mg GT BID 11/23/17 RX: Zonisamide [Zonegran -] 50 mg GT HS 11/23/17 RX: Zonisamide [Zonegran] 200 mg GT TID 11/23/17 RX: Topiramate [Topamax] 300 mg GT DAILY 02/14/18 RX: Carbamazepine 300 mg GT DAILY 04/02/18 RX: Ipratropium 0.02% Nebulizer 1 amp IH QID 04/02/18 [Atrovent 0.02% Nebulizer -] Topiramate [Qudexy Xr] 200 mg GT AM 04/02/18 Topiramate [Qudexy Xr] 400 mg GT HS 04/02/18 RX: Carbamazepine 400 mg GT AM 04/03/18 RX: Carbamazepine 400 mg GT HS 04/03/18 Microbiology 04/02/18 19:20 Blood - Peripheral Venous Blood Culture - Preliminary NO GROWTH OBTAINED AFTER 48 HOURS, INCUBATION TO CONTINUE FOR 3 DAYS. 04/02/18 19:20 Blood - Peripheral Venous Blood Culture - Preliminary NO GROWTH OBTAINED AFTER 48 HOURS, INCUBATION TO CONTINUE FOR 3 DAYS. 04/02/18 19:55 Urine - Urine - Catheterized Urine Culture - Preliminary Group D Strep Or Entero Coccus 04/02/18 19:20 Nasopharyngeal Swab Influenza Types A,B Antigen - Final 04/02/18 19:20 Nasopharyngeal Swab - Final ASSESSMENT AND PLAN: This is a 28 year old man with a history of CP, developmental disability, seizure disorder, scoliosis, dysphagia, functional quadriplegia who presented to the ED from [facility] with fever and tachycardia. # Sepsis improving due to having UTI vs possible to aspiration pneumonia on IV Azactam ( since patient is allergic to PCN) ,and Vancomycin. ID on the case UA is growing Group D Strep Or Entero Coccus, once the sensitivity is back will narrow down the antibiotic. # Acute Hyponatremia 130-->133-->135 today continue IV fluid NS and monitor electrolytes # Seizure disorder Continue Tegretol, Topamax, Zonegran, Banzel, Onfi # Cerebral palsy # Functional quadriplegia # Developmental disability # Dysphagia Continue Jevity via G-tube DVT Px: Lovenox
[2018-04-05] MEDS: AZTREONAM 1 GM in DEXTROSE 5%-WATER - 50 ML IVPB SCH ×3 (01:19→17:32)
[2018-04-05] MEDS: VANCOMYCIN 1 GRAM (PRE-DOCKED) 1,000 MG/250 ML BAG IVPB SCH ×2 (03:15→14:42)
[2018-04-05] MEDS: carBAMazepine 200 MG/10 ML UNIT-DOSE CUP GT SCH ×3 (06:11→23:02)
[2018-04-05] MEDS: ZONISAMIDE 100 MG/10 ML ORAL SUSPENSION GT SCH ×4 (06:11→23:05)
[2018-04-05] MEDS: TOPIRAMATE GT SCH ×2 (06:11→23:03)
[2018-04-05 07:30] LABS: BASO % 0.5 % (0-2.0); EOS % 2.8 % (0-4.5); HEMATOCRIT 40.4 % (35.4-49); HEMOGLOBIN 13.5 GM/dL (11.7-16.9); LYMPH % 25.6 % (8-40); MCH 32.3 pg (25.7-33.7); MCHC 33.4 g/dl (32.0-35.9); MEAN CELL VOLUME 96.9 fl (80-96); MEAN PLT VOLUME 7.3 fl (7.5-11.1); MONO % 9.6 % (3.8-10.2); NEUT % 61.5 % (42.8-82.8); PLATELET COUNT 197 K/MM3 (134-434); RBC 4.17 M/mm3 (4.00-5.60); RDW 13.8 % (11.9-15.9); WHITE BLOOD COUNT 5.8 K/mm3 (4.0-10.0)
[2018-04-05 08:34] LABS: ANION GAP 9 MMOL/L (8-16); BLOOD UREA NITROGEN 7 mg/dL (7-18); CALCIUM 8.6 mg/dL (8.5-10.1); CHLORIDE 102 mmol/L (98-107); CO2 24 mmol/L (21-32); CREATININE 0.2 mg/dL (0.55-1.3); GLUCOSE,RANDOM 86 mg/dL (74-106); MAGNESIUM 1.9 mg/dL (1.8-2.4); PHOSPHOROUS 4.7 mg/dL (2.5-4.9); POTASSIUM 3.8 mmol/L (3.5-5.1); SODIUM 135 mmol/L (136-145)
[2018-04-05] MEDS ORDERED: PT OWN MED DRAWER 7, Y5N ONE ×5 (09:55→17:30)
[2018-04-05] MEDS: ENOXAPARIN NA (PORCINE) 40 MG/0.4 ML DISP.SYRIN SQ SCH (10:02)
[2018-04-05] MEDS: cloBAZam 10 MG TABLET GT SCH ×2 (10:02→23:01)
[2018-04-05] MEDS: RUFINAMIDE GT SCH ×2 (10:02→23:01)
[2018-04-05] MEDS: TOPIRAMATE 100 MG TABLET GT SCH (10:03)
--- NOTE | 2018-04-05 10:11 | PN ---
Progress Note, Physician History of Present Illness: Awake, non verbal Breathing non-labored Appears comfortable at rest Temps down Afebrile WBC WNL BC (-) Urine c/s Enterococcal sp. - Current Medication List Current Medications: Active Medications Carbamazepine (Tegretol Oral Suspension -) 300 mg GT DAILY@1200 [facility] Last Admin: 04/04/18 12:58 Dose: 300 mg Carbamazepine (Tegretol Oral Suspension -) 400 mg GT BID@0700,2200 [facility] Last Admin: 04/05/18 06:11 Dose: 400 mg Clobazam (Onfi -) 10 mg GT BID [facility] Last Admin: 04/05/18 10:02 Dose: 10 mg Diazepam (Diastat Rectal Gel -) 10 mg RC PRN PRN PRN Reason: seizure Enoxaparin Sodium (Lovenox -) 40 mg SQ DAILY [facility] Last Admin: 04/05/18 10:02 Dose: 40 mg Vancomycin HCl (Vancomycin (Pre-Docked)) 1,000 mg in 250 mls @ 166.667 mls/hr IVPB Q12H [facility]; Protocol Last Admin: 04/05/18 03:15 Dose: 166.667 mls/hr Aztreonam 1 gm/ Dextrose 50 mls @ 100 mls/hr IVPB Q8H-IV [facility]; Protocol Last Admin: 04/05/18 10:03 Dose: 100 mls/hr Sodium Chloride (Normal Saline -) 1,000 mls @ 42 mls/hr IV ASDIR [facility] Last Admin: 04/04/18 16:44 Dose: 42 mls/hr Lorazepam (Ativan -) 1 mg GT PRN PRN PRN Reason: seizure Ptnt's Own Med( Rufinamide [Banzel] 1,600 Mg) 1,600 mg GT BID [facility] Last Admin: 04/05/18 10:02 Dose: 1,600 mg Ptnt's Own Med ( Topiramate [Qudexy Xr] 200 Mg) 200 mg GT AM [facility] Last Admin: 04/05/18 06:11 Dose: 200 mg Ptnt's Own Med( Topiramate [Qudexy Xr] 400 Mg) 400 mg GT HS [facility] Last Admin: 04/04/18 22:22 Dose: 400 mg Polyethylene Glycol (Miralax (For Daily Use) -) 17 gm GT Q2D@1830 [facility] Last Admin: 04/03/18 17:55 Dose: 17 grams Topiramate (Topamax -) 300 mg GT DAILY [facility] Last Admin: 04/05/18 10:03 Dose: 300 mg Zonisamide (Zonisamide) 200 mg GT TID [facility] Last Admin: 04/05/18 06:11 Dose: 200 mg Zonisamide (Zonisamide) 50 mg GT HS [facility] Last Admin: 04/04/18 22:24 Dose: 50 mg - Objective Vital Signs: Vital Signs Temperature 97.5 F L 04/05/18 05:00 Pulse Rate 87 04/05/18 05:00 Respiratory Rate 20 04/05/18 05:00 Blood Pressure 108/62 04/05/18 05:00 O2 Sat by Pulse Oximetry (%) 98 04/04/18 20:47 Constitutional: Yes: No Distress Cardiovascular: Yes: Regular Rate and Rhythm, S1, S2 Respiratory: Yes: Rhonchi Gastrointestinal: Yes: Normal Bowel Sounds, Soft. No: Tenderness Edema: No Labs: CBC, BMP 04/05/18 06:00 04/05/18 06:00 INR, PTT INR 1.13 (0.83-1.09) H 04/02/18 19:20 Assessment/Plan UTI / Sepsis secondary to UTI ? Asp pneumonia PCN/Cephalosporin allergies CP/MR Continue vancomycin /aztreonam
--- NOTE | 2018-04-05 12:08 | PN ---
Progress Note (short form) - Note Progress Note: 28 y/o M with PMHx of cerebral palsy, epilepsy, recurrent aspiration pneumonia, scoliosis admitted for Sepsis patient was laying in bed without any complaints he is afebrile 1. Sepsis 2/2 UTI - resolved -Since admission, Afebrile, WBC resolvedx -Continue Vancomycin and Aztreonam (Started 04/02) -Continue IV NS @ 42 mls/hr 2. Hyponatremia can be 2/2 to epilepsy medications - carbamazepine, topiramate ... -Na 127 on admission, 135 this am -Continue IV NS @ 42 mls/hr -Continue to monitor 3. Hx of Epilepsy - seizure precautions -Monitor closely for seizure activity and possibly aspiration, Continue home meds -Carbamazepine 400 mg AM, 300 mg noon, 400 mg HS GT QD -Clozabam 10 mg GT BID -Diazepam Rectal Gel 10 mg RC PRN -Ativan 1 mg GT PRN -Banzel 1,600 mg GT BID -Topiramate 300 mg GT QD -Topiramate 200 mg GT AM, HS -Zonisamide 200 mg GT TID -Zonisamide 50 mg GT HS 4. FEN -IV NS @ 42 mls/hr -Hyponatremia improving -Tube Feed Osmolite 5. PPx -DVT: Lovenox
[2018-04-05] MEDS: SODIUM CHLORIDE 1,000 ML IV SCH (17:32)
[2018-04-05] MEDS: POLYETHYLENE GLYCOL 3350 119 GM BTL GT SCH (17:32)
[2018-04-06] MEDS: AZTREONAM 1 GM in DEXTROSE 5%-WATER - 50 ML IVPB SCH ×3 (01:13→17:28)
[2018-04-06] MEDS: VANCOMYCIN 1 GRAM (PRE-DOCKED) 1,000 MG/250 ML BAG IVPB SCH ×2 (02:22→14:36)
[2018-04-06] MEDS: TOPIRAMATE GT SCH ×2 (06:02→22:55)
[2018-04-06] MEDS: ZONISAMIDE 100 MG/10 ML ORAL SUSPENSION GT SCH ×4 (06:02→23:08)
[2018-04-06] MEDS: carBAMazepine 200 MG/10 ML UNIT-DOSE CUP GT SCH ×3 (06:02→22:52)
--- NOTE | 2018-04-06 09:36 | PN ---
Physical Exam: SUBJECTIVE: Patient seen and examined this morning at bedside. Patient non verbal at baseline. No overnight events as per nursing. Unable to perform review of systems. OBJECTIVE: Vital Signs Period Temp Pulse Resp BP Sys/Grossman Pulse Ox Last 24 Hr 97.0 F-98.2 F 76-107 17-20 98-131/63-74 96-97 GENERAL: NAD, lying comfortably with head of bed elevated HEAD: NCAT EYES: PERRL NECK: Supple, No JVD LUNGS: Congested, poor inspiratory effort HEART: RRR, S1 S2 without murmur ABDOMEN: Soft, nontender, nondistended, + bowel sounds, no guarding. G tube in place with clean, dry surrounding dressing, no surrounding erythema EXTREMITIES: 2+ pulses, B/l hands contracted. No peripheral edema. NEUROLOGICAL: Unable to assess due to baseline mental status. SKIN: Warm, dry Microbiology 04/02/18 19:20 Blood - Peripheral Venous Blood Culture - Preliminary NO GROWTH OBTAINED AFTER 72 HOURS, INCUBATION TO CONTINUE FOR 2 DAYS. 04/02/18 19:20 Blood - Peripheral Venous Blood Culture - Preliminary NO GROWTH OBTAINED AFTER 72 HOURS, INCUBATION TO CONTINUE FOR 2 DAYS. 04/02/18 19:55 Urine - Urine - Catheterized Urine Culture - Final Enterococcus Faecalis 04/02/18 19:20 Nasopharyngeal Swab Influenza Types A,B Antigen - Final 04/02/18 19:20 Nasopharyngeal Swab - Final Active Medications Carbamazepine (Tegretol Oral Suspension -) 300 mg GT DAILY@1200 [facility] Last Admin: 04/05/18 12:17 Dose: 300 mg Carbamazepine (Tegretol Oral Suspension -) 400 mg GT BID@0700,2200 [facility] Last Admin: 04/06/18 06:02 Dose: 400 mg Clobazam (Onfi -) 10 mg GT BID [facility] Last Admin: 04/05/18 23:01 Dose: 10 mg Diazepam (Diastat Rectal Gel -) 10 mg RC PRN PRN PRN Reason: seizure Enoxaparin Sodium (Lovenox -) 40 mg SQ DAILY [facility] Last Admin: 04/05/18 10:02 Dose: 40 mg Vancomycin HCl (Vancomycin (Pre-Docked)) 1,000 mg in 250 mls @ 166.667 mls/hr IVPB Q12H [facility]; Protocol Last Admin: 04/06/18 02:22 Dose: 166.667 mls/hr Aztreonam 1 gm/ Dextrose 50 mls @ 100 mls/hr IVPB Q8H-IV [facility]; Protocol Last Admin: 04/06/18 01:13 Dose: 100 mls/hr Sodium Chloride (Normal Saline -) 1,000 mls @ 42 mls/hr IV ASDIR [facility] Last Admin: 04/05/18 17:32 Dose: 42 mls/hr Lorazepam (Ativan -) 1 mg GT PRN PRN PRN Reason: seizure Ptnt's Own Med( Rufinamide [Banzel] 1,600 Mg) 1,600 mg GT BID [facility] Last Admin: 04/05/18 23:01 Dose: 1,600 mg Ptnt's Own Med ( Topiramate [Qudexy Xr] 200 Mg) 200 mg GT AM [facility] Last Admin: 04/06/18 06:02 Dose: 200 mg Ptnt's Own Med( Topiramate [Qudexy Xr] 400 Mg) 400 mg GT HS [facility] Last Admin: 04/05/18 23:03 Dose: 400 mg Polyethylene Glycol (Miralax (For Daily Use) -) 17 gm GT Q2D@1830 [facility] Last Admin: 04/05/18 17:32 Dose: 17 grams Topiramate (Topamax -) 300 mg GT DAILY [facility] Last Admin: 04/05/18 10:03 Dose: 300 mg Zonisamide (Zonisamide) 200 mg GT TID [facility] Last Admin: 04/06/18 06:02 Dose: 200 mg Zonisamide (Zonisamide) 50 mg GT HS [facility] Last Admin: 04/05/18 23:04 Dose: 50 mg IMAGING: -CXR: Since 02/15/2018, again noted is a scoliosis with spinal support rods, stimulator device, prominent mediastinum and dense left base. Correlation recommended. ASSESSMENT/PLAN: 28 y/o M with PMHx of cerebral palsy, epilepsy, recurrent aspiration pneumonia, scoliosis admitted for Sepsis 1. Sepsis -On Admission, Temp 101.3, HR 131, UA: 3+ LE 218 WBC -Since admission, Afebrile, WBC resolved -Likely due to UTI; r/o aspiration pneumonia given aspiration hx -ID consult (Dr. eBnoit), Appreciate rec's -Continue Vancomycin and Aztreonam (Started 04/02) -Continue IV NS @ 42 mls/hr -Blood cx negative -Urine cx Enterococcus Faecalis 2. Hyponatremia -Resolved -Continue IV NS @ 42 mls/hr -Continue to monitor 3. Hx of Epilepsy -Monitor closely for seizure activity and possibly aspiration, Continue home meds -Carbamazepine 400 mg AM, 300 mg noon, 400 mg HS GT QD -Clozabam 10 mg GT BID -Diazepam Rectal Gel 10 mg RC PRN -Ativan 1 mg GT PRN -Banzel 1,600 mg GT BID -Topiramate 300 mg GT QD -Topiramate 200 mg GT AM, HS -Zonisamide 200 mg GT TID -Zonisamide 50 mg GT HS 4. FEN -IV NS @ 42 mls/hr -Hyponatremia improving -Lead Quality Technician consulted: Tube Feed Osmolite 1.2 goal rate 60ml/hr x 24 hours with 25 ml water flush each hour of feeding 5. PPx -DVT: Lovenox Dispo: admit to med-surg Visit type - Emergency Visit Emergency Visit: Yes ED Registration Date: 04/02/18 Care time: The patient presented to the Emergency Department on the above date and was hospitalized for further evaluation of their emergent condition. - New Patient This patient is new to me today: No - Critical Care Critical Care patient: No - Discharge Referral Referred to [facility] Med [facility] No
[2018-04-06] MEDS: cloBAZam 10 MG TABLET GT SCH ×2 (10:29→22:52)
[2018-04-06] MEDS: ENOXAPARIN NA (PORCINE) 40 MG/0.4 ML DISP.SYRIN SQ SCH (10:29)
[2018-04-06] MEDS: TOPIRAMATE 100 MG TABLET GT SCH (10:30)
[2018-04-06] MEDS: RUFINAMIDE GT SCH ×2 (10:30→22:52)
--- NOTE | 2018-04-06 11:29 | PN ---
Teaching Attending Note Name of Resident: Cheyanne Chaidez ATTENDING PHYSICIAN STATEMENT I saw and evaluated the patient. I reviewed the resident's note and discussed the case with the resident. I agree with the resident's findings and plan as documented. SUBJECTIVE: OBJECTIVE: ASSESSMENT AND PLAN: 1. Sepsis 2/2 UTI - resolved -Since admission, Afebrile, WBC resolvedx -Continue Vancomycin and Aztreonam (Started 04/02) -Continue IV NS @ 42 mls/hr 2. Hyponatremia can be 2/2 to epilepsy medications - carbamazepine, topiramate ... -Na 127 on admission, 135 this am -Continue IV NS @ 42 mls/hr -Continue to monitor 3. Hx of Epilepsy - seizure precautions -Monitor closely for seizure activity and possibly aspiration, Continue home meds -Carbamazepine 400 mg AM, 300 mg noon, 400 mg HS GT QD -Clozabam 10 mg GT BID -Diazepam Rectal Gel 10 mg RC PRN -Ativan 1 mg GT PRN -Banzel 1,600 mg GT BID -Topiramate 300 mg GT QD -Topiramate 200 mg GT AM, HS -Zonisamide 200 mg GT TID -Zonisamide 50 mg GT HS 4. FEN -IV NS @ 42 mls/hr -Hyponatremia improving -Tube Feed Osmolite 5. PPx -DVT: Lovenox
[2018-04-06] MEDS ORDERED: PT OWN MED DRAWER 7, Y5N ONE ×4 (14:33→23:27)
[2018-04-06] MEDS: SODIUM CHLORIDE 1,000 ML IV SCH (16:44)
[2018-04-07] MEDS: AZTREONAM 1 GM in DEXTROSE 5%-WATER - 50 ML IVPB SCH ×3 (02:00→17:31)
[2018-04-07] MEDS: VANCOMYCIN 1 GRAM (PRE-DOCKED) 1,000 MG/250 ML BAG IVPB SCH ×2 (02:39→15:55)
[2018-04-07] MEDS: ZONISAMIDE 100 MG/10 ML ORAL SUSPENSION GT SCH ×4 (06:22→22:41)
[2018-04-07] MEDS: TOPIRAMATE GT SCH ×2 (06:23→22:41)
[2018-04-07] MEDS: carBAMazepine 200 MG/10 ML UNIT-DOSE CUP GT SCH ×3 (06:23→22:40)
[2018-04-07 08:17] LABS: ANION GAP 5 MMOL/L (8-16); BLOOD UREA NITROGEN 7 mg/dL (7-18); CALCIUM 8.4 mg/dL (8.5-10.1); CHLORIDE 101 mmol/L (98-107); CO2 27 mmol/L (21-32); CREATININE 0.2 mg/dL (0.55-1.3); GLUCOSE,RANDOM 83 mg/dL (74-106); MAGNESIUM 1.9 mg/dL (1.8-2.4); PHOSPHOROUS 4.9 mg/dL (2.5-4.9); POTASSIUM 4.2 mmol/L (3.5-5.1); SODIUM 133 mmol/L (136-145)
[2018-04-07] MEDS: TOPIRAMATE 100 MG TABLET GT SCH (10:55)
[2018-04-07] MEDS: ENOXAPARIN NA (PORCINE) 40 MG/0.4 ML DISP.SYRIN SQ SCH (10:55)
[2018-04-07] MEDS: cloBAZam 10 MG TABLET GT SCH ×2 (10:55→22:40)
[2018-04-07] MEDS: RUFINAMIDE GT SCH ×2 (10:57→22:41)
[2018-04-07] MEDS ORDERED: PT OWN MED DRAWER 7, Y5N ONE ×6 (11:01→17:27)
--- NOTE | 2018-04-07 12:21 | PN ---
Teaching Attending Note Name of Resident: Leti Franz ATTENDING PHYSICIAN STATEMENT I saw and evaluated the patient. I reviewed the resident's note and discussed the case with the resident. I agree with the resident's findings and plan as documented. SUBJECTIVE: Nonverbal, NAD. Remains on O2 via. NC OBJECTIVE: VS reviewed All imaging and labs personally reviewed Gen: Nonverbal, arousable and protecting airway, on NC, NAD HEENT: NC AT EOMI PERRLA CV: RRR s1/2 no mgr Lungs: Sym expansion, upper airway noises with scattered ronchi Neuro: CN2-12 grossly intact, no FND, cannot meaningfully participate in neuro exam. Psych: Not agitated, cannot fully assess ASSESSMENT AND PLAN: 1. Sepsis 2/2 UTI - remains resolved. -Continue Vancomycin and Aztreonam (Started 04/02), abx day #6, continue fluids changing to free water flush tomorrow. Elucidate final course of abx with ID 2. Hyponatremia: Improved; -Likely 2/2 dehydration vs. meds. Continue to monitor QD BMP 3. Hx of Epilepsy - seizure precautions -Monitor closely for seizure activity and possibly aspiration, Continue home meds without any changes to be made. 4. Hx of Cerebral Palsy -At functional baseline I am told 5. Hypoxia -Patient is NOT ON O2 at home; he is requiring O2 while here. Attempt to wean. Adding chest PT as he likely is microaspirating. Continue suction. FENA: -IV NS @ 42 mls/hr -Hyponatremia improving -Tube Feed Osmolite -Baseline level of activity DVT px: Lovenox continued Dispo: Once off O2 will convert to appropriate abx regimine and DC back to facility; hopeful for tomorrow and day after
--- NOTE | 2018-04-07 15:24 | PN ---
Progress Note, Physician History of Present Illness: More lethargic today. Non verbal More audibly congested Breathing non-labored Temps down Afebrile WBC WNL BC (-) Urine c/s Enterococcal sp. - Current Medication List Current Medications: Active Medications Carbamazepine (Tegretol Oral Suspension -) 300 mg GT DAILY@1200 [facility] Last Admin: 04/07/18 11:22 Dose: 300 mg Carbamazepine (Tegretol Oral Suspension -) 400 mg GT BID@0700,2200 [facility] Last Admin: 04/07/18 06:23 Dose: 400 mg Clobazam (Onfi -) 10 mg GT BID [facility] Last Admin: 04/07/18 10:55 Dose: 10 mg Diazepam (Diastat Rectal Gel -) 10 mg RC PRN PRN PRN Reason: seizure Enoxaparin Sodium (Lovenox -) 40 mg SQ DAILY [facility] Last Admin: 04/07/18 10:55 Dose: 40 mg Vancomycin HCl (Vancomycin (Pre-Docked)) 1,000 mg in 250 mls @ 166.667 mls/hr IVPB Q12H [facility]; Protocol Last Admin: 04/07/18 02:39 Dose: 166.667 mls/hr Aztreonam 1 gm/ Dextrose 50 mls @ 100 mls/hr IVPB Q8H-IV [facility]; Protocol Last Admin: 04/07/18 10:52 Dose: 100 mls/hr Sodium Chloride (Normal Saline -) 1,000 mls @ 42 mls/hr IV ASDIR [facility] Last Admin: 04/06/18 16:44 Dose: 42 mls/hr Lorazepam (Ativan -) 1 mg GT PRN PRN PRN Reason: seizure Ptnt's Own Med( Rufinamide [Banzel] 1,600 Mg) 1,600 mg GT BID [facility] Last Admin: 04/07/18 10:57 Dose: 1,600 mg Ptnt's Own Med ( Topiramate [Qudexy Xr] 200 Mg) 200 mg GT AM [facility] Last Admin: 04/07/18 06:23 Dose: 200 mg Ptnt's Own Med( Topiramate [Qudexy Xr] 400 Mg) 400 mg GT HS [facility] Last Admin: 04/06/18 22:55 Dose: 400 mg Polyethylene Glycol (Miralax (For Daily Use) -) 17 gm GT Q2D@1830 [facility] Last Admin: 04/05/18 17:32 Dose: 17 grams Topiramate (Topamax -) 300 mg GT DAILY [facility] Last Admin: 04/07/18 10:55 Dose: 300 mg Zonisamide (Zonisamide) 200 mg GT TID [facility] Last Admin: 04/07/18 13:58 Dose: 200 mg Zonisamide (Zonisamide) 50 mg GT HS [facility] Last Admin: 04/06/18 23:08 Dose: 50 mg - Objective Vital Signs: Vital Signs Temperature 97.6 F 04/07/18 10:00 Pulse Rate 82 04/07/18 10:00 Respiratory Rate 18 04/07/18 10:00 Blood Pressure 115/76 04/07/18 10:00 O2 Sat by Pulse Oximetry (%) 99 04/07/18 09:00 Constitutional: Yes: No Distress Eyes: Yes: Conjunctiva Clear Cardiovascular: Yes: Regular Rate and Rhythm, S1, S2 Respiratory: Yes: Rhonchi Gastrointestinal: Yes: Normal Bowel Sounds, Soft. No: Tenderness Edema: No Labs: CBC, BMP 04/05/18 06:00 04/07/18 06:00 INR, PTT INR 1.13 (0.83-1.09) H 04/02/18 19:20 Assessment/Plan UTI / Sepsis secondary to UTI ? Asp pneumonia PCN/Cephalosporin allergies CP/MR Continue vancomycin /aztreonam additional 24h
[2018-04-07] MEDS: SODIUM CHLORIDE 1,000 ML IV SCH (15:55)
--- NOTE | 2018-04-07 17:10 | PN ---
Physical Exam: SUBJECTIVE: Patient seen and examined this morning at bedside. Patient non verbal at baseline. No overnight events as per nursing. Unable to perform review of systems. OBJECTIVE: Vital Signs Period Temp Pulse Resp BP Sys/Grossman Pulse Ox Last 24 Hr 96.7 F-98.8 F 70-102 18-18 104-124/63-76 99-99 GENERAL: NAD, lying comfortably with head of bed elevated, Nonverbal HEAD: NCAT EYES: PERRL NECK: Supple, No JVD LUNGS: Rhonchi, poor inspiratory effort HEART: RRR, S1 S2 without murmur ABDOMEN: Soft, nontender, nondistended, + bowel sounds, no guarding. G tube in place with clean, dry surrounding dressing, no surrounding erythema EXTREMITIES: 2+ pulses, B/l hands contracted. No peripheral edema. NEUROLOGICAL: Unable to assess due to baseline mental status. SKIN: Warm, dry Laboratory Results - last 24 hr 04/07/18 06:00 Sodium 133 L Potassium 4.2 Chloride 101 Carbon Dioxide 27 Anion Gap 5 L BUN 7 Creatinine 0.2 L Creat Clearance w eGFR > 60 Random Glucose 83 Calcium 8.4 L Phosphorus 4.9 Magnesium 1.9 Microbiology 04/02/18 19:20 Blood - Peripheral Venous Blood Culture - Preliminary NO GROWTH OBTAINED AFTER 96 HOURS, INCUBATION TO CONTINUE FOR 1 DAYS. 04/02/18 19:20 Blood - Peripheral Venous Blood Culture - Preliminary NO GROWTH OBTAINED AFTER 96 HOURS, INCUBATION TO CONTINUE FOR 1 DAYS. 04/02/18 19:55 Urine - Urine - Catheterized Urine Culture - Final Enterococcus Faecalis 04/02/18 19:20 Nasopharyngeal Swab Influenza Types A,B Antigen - Final 04/02/18 19:20 Nasopharyngeal Swab - Final Active Medications Carbamazepine (Tegretol Oral Suspension -) 300 mg GT DAILY@1200 [facility] Last Admin: 04/07/18 11:22 Dose: 300 mg Carbamazepine (Tegretol Oral Suspension -) 400 mg GT BID@0700,2200 [facility] Last Admin: 04/07/18 06:23 Dose: 400 mg Clobazam (Onfi -) 10 mg GT BID [facility] Last Admin: 04/07/18 10:55 Dose: 10 mg Diazepam (Diastat Rectal Gel -) 10 mg RC PRN PRN PRN Reason: seizure Enoxaparin Sodium (Lovenox -) 40 mg SQ DAILY [facility] Last Admin: 04/07/18 10:55 Dose: 40 mg Vancomycin HCl (Vancomycin (Pre-Docked)) 1,000 mg in 250 mls @ 166.667 mls/hr IVPB Q12H [facility]; Protocol Last Admin: 04/07/18 15:55 Dose: 166.667 mls/hr Aztreonam 1 gm/ Dextrose 50 mls @ 100 mls/hr IVPB Q8H-IV [facility]; Protocol Last Admin: 04/07/18 10:52 Dose: 100 mls/hr Sodium Chloride (Normal Saline -) 1,000 mls @ 42 mls/hr IV ASDIR [facility] Last Admin: 04/07/18 15:55 Dose: Not Given Lorazepam (Ativan -) 1 mg GT PRN PRN PRN Reason: seizure Ptnt's Own Med( Rufinamide [Banzel] 1,600 Mg) 1,600 mg GT BID [facility] Last Admin: 04/07/18 10:57 Dose: 1,600 mg Ptnt's Own Med ( Topiramate [Qudexy Xr] 200 Mg) 200 mg GT AM [facility] Last Admin: 04/07/18 06:23 Dose: 200 mg Ptnt's Own Med( Topiramate [Qudexy Xr] 400 Mg) 400 mg GT HS [facility] Last Admin: 04/06/18 22:55 Dose: 400 mg Polyethylene Glycol (Miralax (For Daily Use) -) 17 gm GT Q2D@1830 [facility] Last Admin: 04/05/18 17:32 Dose: 17 grams Topiramate (Topamax -) 300 mg GT DAILY [facility] Last Admin: 04/07/18 10:55 Dose: 300 mg Zonisamide (Zonisamide) 200 mg GT TID [facility] Last Admin: 04/07/18 13:58 Dose: 200 mg Zonisamide (Zonisamide) 50 mg GT HS [facility] Last Admin: 04/06/18 23:08 Dose: 50 mg IMAGING: -CXR (04/02): Since 02/15/2018, again noted is a scoliosis with spinal support rods, stimulator device, prominent mediastinum and dense left base. Correlation recommended. -CXR (04/07): No significant change since prior study. -EKG: SINUS TACHYCARDIA, RIGHT ATRIAL ENLARGEMENT, RIGHT AXIS DEVIATION, PULMONARY DISEASE PATTERN, RIGHT VENTRICULAR HYPERTROPHY, QTc 446 ASSESSMENT/PLAN: 28 y/o M with PMHx of cerebral palsy, epilepsy, recurrent aspiration pneumonia, scoliosis admitted for Sepsis 1. Sepsis -On Admission, Temp 101.3, HR 131, UA: 3+ LE 218 WBC -Since admission, Afebrile, WBC resolved -Likely due to UTI; r/o aspiration pneumonia given aspiration hx -ID consult (Dr. Benoit), Appreciate rec's -Continue Vancomycin and Aztreonam (Started 04/02) -Continue IV NS @ 42 mls/hr -Blood cx negative -Urine cx Enterococcus Faecalis 2. Hyponatremia -Resolved -Continue IV NS @ 42 mls/hr -Continue to monitor 3. Hx of Epilepsy -Monitor closely for seizure activity and possibly aspiration, Continue home meds -Carbamazepine 400 mg AM, 300 mg noon, 400 mg HS GT QD -Clozabam 10 mg GT BID -Diazepam Rectal Gel 10 mg RC PRN -Ativan 1 mg GT PRN -Banzel 1,600 mg GT BID -Topiramate 300 mg GT QD -Topiramate 200 mg GT AM, HS -Zonisamide 200 mg GT TID -Zonisamide 50 mg GT HS 4. Hypoxia -Requiring supplemental O2 via NC during hospital stay however not on Home O2 -Chest PT added -Attempt to wean, Continue to suction 5. FEN -IV NS @ 42 mls/hr -Hyponatremia improving -Multi Needle Machine Operator consulted: Tube Feed Osmolite 1.2 goal rate 60ml/hr x 24 hours with 25 ml water flush each hour of feeding 6. PPx -DVT: Lovenox Dispo: admit to med-surg Visit type - Emergency Visit Emergency Visit: Yes ED Registration Date: 04/02/18 Care time: The patient presented to the Emergency Department on the above date and was hospitalized for further evaluation of their emergent condition. - New Patient This patient is new to me today: No - Critical Care Critical Care patient: No - Discharge Referral Referred to [facility] Med P.C.: No
[2018-04-07] MEDS: POLYETHYLENE GLYCOL 3350 119 GM BTL GT SCH (17:31)
[2018-04-08] MEDS ORDERED: PT OWN MED DRAWER 7, Y5N ONE ×10 (01:32→16:28)
[2018-04-08] MEDS: AZTREONAM 1 GM in DEXTROSE 5%-WATER - 50 ML IVPB SCH ×2 (01:49→09:03)
[2018-04-08] MEDS: VANCOMYCIN 1 GRAM (PRE-DOCKED) 1,000 MG/250 ML BAG IVPB SCH ×2 (02:46→14:38)
[2018-04-08] MEDS: carBAMazepine 200 MG/10 ML UNIT-DOSE CUP GT SCH ×2 (06:08→12:06)
[2018-04-08] MEDS: ZONISAMIDE 100 MG/10 ML ORAL SUSPENSION GT SCH ×2 (06:08→13:33)
[2018-04-08] MEDS: TOPIRAMATE GT SCH (06:09)
[2018-04-08] MEDS: ENOXAPARIN NA (PORCINE) 40 MG/0.4 ML DISP.SYRIN SQ SCH (09:05)
[2018-04-08] MEDS: RUFINAMIDE GT SCH (09:07)
[2018-04-08] MEDS: cloBAZam 10 MG TABLET GT SCH (09:07)
[2018-04-08] MEDS: TOPIRAMATE 100 MG TABLET GT SCH (12:05)
--- NOTE | 2018-04-08 13:33 | PN ---
Teaching Attending Note Name of Resident: Leti Franz ATTENDING PHYSICIAN STATEMENT I saw and evaluated the patient. I reviewed the resident's note and discussed the case with the resident. I agree with the resident's findings and plan as documented. S: Seen and examined; resting comfortably in bed. Off O2. Hemodynamics stable, no further issues noted. O: Unchanged; off O2; all labs, imaging, and VS reviewed. AAO, nonverbal, appears comfortable RRR S1/2 no mgr Sym expansion without ronchi or crackles CN2-12 wnl, reflexes intact Couldnt assess psych but not agitated 1. Sepsis 2/2 UTI - remains resolved. -Completed course of abx per ID; colonization with MDROs suspected. Monitor clinically. Bring back to hospital if fever, tachycardia, etc. 2. Hyponatremia: Improved; -Likely 2/2 dehydration vs. meds. Check BMP in 3-5 days. 3. Hx of Epilepsy - seizure precautions -Monitor closely for seizure activity and possibly aspiration, Continue home meds without any changes to be made. 4. Hx of Cerebral Palsy with resulting dysphagia on feeds -At functional baseline I am told; discharging on old feed schedule without any changes 5. Hypoxia -Patient is NOT ON O2 at home; he was weaned off. I suspect he microaspirates; aspiration precautions to be done. DC to facility Followups per resident note 40 minutes spent on this DC including coordinating care
--- NOTE | 2018-04-08 14:37 | DS ---
Physical Exam: SUBJECTIVE: Patient seen and examined this morning at bedside. Patient non verbal at baseline. No longer using supplemental O2. No overnight events as per nursing. Unable to perform review of systems. OBJECTIVE: Vital Signs Period Temp Pulse Resp BP Sys/Grossman Pulse Ox Last 24 Hr 96.8 F-98.3 F 78-104 18-20 94-131/59-76 95-95 PHYSICAL EXAM GENERAL: NAD, lying comfortably with head of bed elevated, Nonverbal HEAD: NCAT EYES: PERRL NECK: Supple, No JVD LUNGS: Poor inspiratory effort however no rhonchi or crackles noted HEART: RRR, S1 S2 without murmur ABDOMEN: Soft, nontender, nondistended, + bowel sounds, no guarding. G tube in place with clean, dry surrounding dressing, no surrounding erythema EXTREMITIES: 2+ pulses, B/l hands contracted. No peripheral edema. NEUROLOGICAL: Unable to assess due to baseline mental status. SKIN: Warm, dry LABS Microbiology 04/02/18 19:20 Blood - Peripheral Venous Blood Culture - Final NO GROWTH AFTER 5 DAYS INCUBATION 04/02/18 19:20 Blood - Peripheral Venous Blood Culture - Final NO GROWTH AFTER 5 DAYS INCUBATION 04/02/18 19:55 Urine - Urine - Catheterized Urine Culture - Final Enterococcus Faecalis 04/02/18 19:20 Nasopharyngeal Swab Influenza Types A,B Antigen - Final 04/02/18 19:20 Nasopharyngeal Swab - Final IMAGING: -CXR (04/02): Since 02/15/2018, again noted is a scoliosis with spinal support rods, stimulator device, prominent mediastinum and dense left base. Correlation recommended. -CXR (04/07): No significant change since prior study. -EKG: SINUS TACHYCARDIA, RIGHT ATRIAL ENLARGEMENT, RIGHT AXIS DEVIATION, PULMONARY DISEASE PATTERN, RIGHT VENTRICULAR HYPERTROPHY, QTc 446 HOSPITAL COURSE: Date of Admission:04/02/18 Date of Discharge: 04/08/18 28 y/o M with PMHx of cerebral palsy, epilepsy, recurrent aspiration pneumonia, scoliosis presented with Fever and tachycardia. Initial UA was significant for 3 + Leukocyte esterace and 218 WBC. Urine cultures grew Enterococcus Faecalis. Infectious disease was consulted and patient completed a 7 day course of Vancomycin and Aztreonam. Blood cultures and Flu swabs were negative. Patient required supplemental O2 during part of his stay however his hypoxia resolved and patients O2 sats were >92% without supplementation. Patients Hyponatremia resolved. He continued all of his home medications, including epilepsy medications. Patient continued on Tube Feed Osmolite. Patient was discharged back to [facility] after signout given to Dr. Melendez, with instruction to resume old tube feed schedule and to implement Aspiration precautions. Minutes to complete discharge: 40 Discharge Summary Reason For Visit: URINARY TRACT INFECTION,RESPIRATORY DISTRESS, Current Active Problems Hyponatremia (Acute) Hypoxia (Acute) Sepsis (Acute) UTI (urinary tract infection) (Acute) Condition: Stable - Instructions Diet, Activity, Other Instructions: You were admitted to the hospital because of Fever and found to have a urinary tract infection. Imaging did not reveal any acute pathology. Blood cultures were negative and Urine cultures grew Enterococcus Faecalis. You completed a 7 day course of Antibiotics (Vancomycin, Aztreonam). Please continue to implement aspiration percautions including keeping the head of the bed elevated. Continue taking Lorazepam,Clozabam, Carbamazepine, Banzel, Zonisamide, and Topiramate for epilepsy, cerebral palsy. Continue Miralax for constipation as needed. Please follow up with your primary care physician in one week. Continue all your other medications as prescribed Please return to the ER if you have any signs or symptoms of chest pain, shortness of breath, uncontrollable fever, chills, nausea, vomiting, numbness, tingling, or weakness in any part of your body, changes in vision, or slurred speech. Please return to the ER if symptoms persist, worsen, or new symptoms arise. Disposition: [facility] - Home Medications Comprehensive Discharge Medication List: Ambulatory Orders Clobazam [Onfi -] 10 mg GT BID 11/23/17 Diazepam [Diastat] 10 mg RC ONCE PRN 11/23/17 Fluticasone Prop 0.05% Nasal [Flonase -] 2 spray NS HS 11/23/17 Lorazepam [Ativan] 1 mg GT ASDIR PRN 11/23/17 Polyethylene Glycol 3350 [Miralax 119 gm Btl -] 17 gm GT ASDIR 11/23/17 Rufinamide [Banzel] 1,600 mg GT BID 11/23/17 Zonisamide [Zonegran -] 50 mg GT HS 11/23/17 Zonisamide [Zonegran] 200 mg GT TID 11/23/17 Topiramate [Topamax] 300 mg GT DAILY 02/14/18 Carbamazepine 300 mg GT DAILY 04/02/18 Ipratropium 0.02% Nebulizer [Atrovent 0.02% Nebulizer -] 1 amp IH QID 04/02/18 Topiramate [Qudexy Xr] 200 mg GT AM 04/02/18 Topiramate [Qudexy Xr] 400 mg GT HS 04/02/18 Carbamazepine 400 mg GT AM 04/03/18 Carbamazepine 400 mg GT HS 04/03/18 This patient is new to me today: No Emergency Visit: Yes ED Registration Date: 04/02/18 Care time: The patient presented to the Emergency Department on the above date and was hospitalized for further evaluation of their emergent condition. Critical Care patient: No - Discharge Referral Referred to [facility] Med P.C.: No
[2018-04-08 14:40] VITALS: BP 101/59; PULSE 92; TEMP 98.1
== END 2018-04-08 16:57 | DRG 871 ==
LOC: JER 18:56 → JERBED 19:28 → J4S 04-03 01:49
PROVIDERS: ADMIT Internal Medicine; ATTEND Internal Medicine
PROC: 3E0G76Z Introduction of Nutritional Substance into Upper GI, Via Natural or Artificial Opening (ICD-10-PCS; principal; 2018-04-02)
DX: A41.9 Sepsis, unspecified organism (principal); R53.2 Functional quadriplegia; J69.0 Pneumonitis due to inhalation of food and vomit; N39.0 Urinary tract infection, site not specified; E87.1 Hypo-osmolality and hyponatremia; G80.9 Cerebral palsy, unspecified; R13.10 Dysphagia, unspecified; R09.02 Hypoxemia; Z88.0 Allergy status to penicillin; Z91.013 Allergy to seafood; G40.909 Epilepsy, unspecified, not intractable, without status epilepticus; M41.9 Scoliosis, unspecified; Z93.1 Gastrostomy status
CPT/HCPCS: 36415; 71045-TC-FY; 80048; 80053; 81003; 81015; 82803; 83605; 83735; 84100; 84484; 85025; 85610; 85730; 87040; 87086; 87186; 87804; 93005; 93010; 99281-25; G0480; J0131; J7030

== ENCOUNTER 2018-04-22 19:11 | Inpatient (IN) | payer OTHER ==
--- NOTE | 2018-04-22 19:44 | PDOC ---
History of Present Illness <Jillian Read - Last Filed: 04/22/18 23:11> - History of Present Illness Initial Comments: 04/22/18 19:45 Mr. Patterson is a 28 yo male w/ pmh of cerebral palsy, seizures, and recurrent pneumonia BIBA from [facility] who presents for evaluation of respiratory congestion. Staff presenting with him unable to provide more information however patient reported as congested sounding via EMS. Non- rebreather placed however EMS reported O2 sat of 97% upon their arrival. Allergies: Albuterol, cephalosporins, latix, penicillins <Pritesh Gay - Last Filed: 04/22/18 23:31> - General Chief Complaint: Respiratory Distress Stated Complaint: RESPIRATORY DISTRESS Time Seen by Provider: 04/22/18 19:41 Past History <Jillian Read - Last Filed: 04/22/18 23:11> - Past Medical History Anemia: No Asthma: No Cancer: No Cardiac Disorders: No CVA: No COPD: No CHF: No Dementia: No Diabetes: No GI Disorders: Yes (gtube) Disorders: No HTN: No Hypercholesterolemia: No Liver Disease: No Seizures: Yes (epilepsy, cp,) Thyroid Disease: No - Surgical History Abdominal Surgery: Yes (gtube feeding) - Immunization History Immunization Up to Date: Yes - Suicide/Smoking/Psychosocial Hx Smoking History: Former smoker Have you smoked in the past 12 months: No Hx Alcohol Use: No Drug/Substance Use Hx: No Substance Use Type: None Hx Substance Use Treatment: No <Pritesh Gay - Last Filed: 04/22/18 23:31> - Past Medical History Allergies/Adverse Reactions: Allergies Allergy/AdvReac Type Severity Reaction Status Date / Time albuterol Allergy Verified 02/13/18 22:09 Cephalosporins Allergy Verified 02/13/18 22:09 latex Allergy Verified 02/13/18 22:09 Penicillins Allergy Verified 02/13/18 22:09 shrimp Allergy Verified 02/13/18 22:09 wool Allergy Verified 02/13/18 22:09 Home Medications: Ambulatory Orders Clobazam [Onfi -] 10 mg GT BID 11/23/17 Diazepam [Diastat] 10 mg RC ONCE PRN 11/23/17 Fluticasone Prop 0.05% Nasal [Flonase -] 2 spray NS HS 11/23/17 Lorazepam [Ativan] 1 mg GT ASDIR PRN 11/23/17 Polyethylene Glycol 3350 [Miralax 119 gm Btl -] 17 gm GT ASDIR 11/23/17 Rufinamide [Banzel] 1,600 mg GT BID 11/23/17 Zonisamide [Zonegran -] 50 mg GT HS 11/23/17 Zonisamide [Zonegran] 200 mg GT TID 11/23/17 Topiramate [Topamax] 300 mg GT DAILY 02/14/18 Carbamazepine 300 mg GT DAILY 04/02/18 Ipratropium 0.02% Nebulizer [Atrovent 0.02% Nebulizer -] 1 amp IH QID 04/02/18 Topiramate [Qudexy Xr] 400 mg GT HS 04/02/18 Carbamazepine 400 mg GT AM 04/03/18 Carbamazepine 400 mg GT HS 04/03/18 Silver Sulfadiazine 1% Top Cr 1 appful TP TID 04/22/18 Review of Systems - Review of Systems Comments:: 04/22/18 19:53 Unable to obtain. <Pritesh Gay - Last Filed: 04/22/18 23:31> *Physical Exam - Vital Signs Last Vital Signs Temp Pulse Resp BP Pulse Ox 98.6 F 121 H 17 102/64 100 04/22/18 19:11 04/22/18 22:10 04/22/18 22:10 04/22/18 22:10 04/22/18 22:10 <Jillian Read - Last Filed: 04/22/18 23:11> - Physical Exam Comments: 04/22/18 19:53 GENERAL: +Patient contracted and non-interactive; reportedly at baseline per staff with him HEAD: No signs of trauma, normocephalic, atraumatic EYES: PERRLA, EOMI, sclera anicteric, conjunctiva clear ENT: Auricles normal inspection, hearing grossly normal, nares patent, oropharynx clear without exudates. Moist mucosa NECK: Normal ROM, supple, no lymphadenopathy, JVD, or masses LUNGS: +Congestion audible without stethoscope. Coarse breath sounds appreciated throughout lung resendiz. HEART: Regular rate and rhythm, normal S1 and S2, no murmurs, rubs or gallops, peripheral pulses normal and equal bilaterally. ABDOMEN: Soft, nontender, normoactive bowel sounds. No guarding, no rebound. No masses EXTREMITIES: Normal inspection, Normal range of motion, no edema. No clubbing or cyanosis. NEUROLOGICAL: +Unable to assess. SKIN: Warm, Dry, normal turgor, no rashes or lesions noted. <DonnellbaoPritesh hunter - Last Filed: 04/22/18 23:31> ED Treatment Course - LABORATORY CBC & Chemistry Diagram: 04/22/18 20:04 04/22/18 22:21 - ADDITIONAL ORDERS Additional order review: Laboratory Results 04/22/18 04/22/18 04/22/18 22:21 22:21 20:30 PT with INR INR PTT (Actin FS) VBG pH 7.35 POC VBG pCO2 49.3 D POC VBG pO2 45.6 Mixed VBG HCO3 26.7 H Sodium 127 L Potassium 4.3 Chloride 94 L Carbon Dioxide 27 Anion Gap 6 L BUN 9 Creatinine 0.3 L Creat Clearance w eGFR > 60 Random Glucose 111 H Lactic Acid Calcium 8.2 L Total Bilirubin 0.4 AST 23 ALT 29 Alkaline Phosphatase 148 H Creatine Kinase Cancelled 44 Troponin I Cancelled < 0.02 Total Protein 7.2 Albumin 3.4 04/22/18 04/22/18 04/22/18 20:04 20:04 19:31 PT with INR 12.60 INR 1.07 PTT (Actin FS) 32.2 VBG pH POC VBG pCO2 POC VBG pO2 Mixed VBG HCO3 Sodium Cancelled Potassium Cancelled Chloride Cancelled Carbon Dioxide Cancelled Anion Gap Cancelled BUN Cancelled Creatinine Cancelled Creat Clearance w eGFR Cancelled Random Glucose Cancelled Lactic Acid 0.9 Calcium Cancelled Total Bilirubin Cancelled AST Cancelled ALT Cancelled Alkaline Phosphatase Cancelled Creatine Kinase Troponin I Cancelled Total Protein Cancelled Albumin Cancelled 04/22/18 20:46 Influenza Types A,B Antigen - Final Nasopharyngeal Swab - Final 04/22/18 20:04 RBC 4.25 MCV 96.8 H MCHC 33.0 RDW 13.3 MPV 7.5 Neutrophils % 67.3 Lymphocytes % 24.5 Monocytes % 7.1 Eosinophils % 0.7 Basophils % 0.4 - Medications Given in the ED: ED Medications Discontinued Medications Generic Name Dose Route Start Last Admin Trade Name Freq PRN Reason Stop Dose Admin Levofloxacin 750 mg in 150 mls @ 100 mls/hr 04/22/18 20:19 04/22/18 20:52 Levaquin 750 Mg Premixed Ivpb - IVPB 04/22/18 21:48 100 mls/hr ONCE ONE Administration Protocol Ipratropium [place] 1 amp 04/22/18 20:53 04/22/18 21:41 Atrovent 0.02% Nebulizer - NEB 04/22/18 20:54 1 amp ONCE ONE Administration Ipratropium [place] 1 amp 04/22/18 21:01 04/22/18 21:41 Atrovent 0.02% Nebulizer - NEB 04/22/18 21:02 1 amp ONCE ONE Administration Ipratropium [place] 1 amp 04/22/18 21:01 04/22/18 22:15 Atrovent 0.02% Nebulizer - NEB 04/22/18 21:02 1 amp ONCE ONE Administration Vancomycin HCl 1,000 mg 04/22/18 20:19 04/22/18 21:41 Vancomycin (Pre-Docked) IVPB 04/22/18 20:20 1,000 mg ONCE ONE Administration Protocol <Jillian Read - Last Filed: 04/22/18 23:11> - LABORATORY CBC & Chemistry Diagram: 04/22/18 20:04 04/22/18 22:21 <Pritesh Gay - Last Filed: 04/22/18 23:31> Medical Decision Making - Medical Decision Making 04/22/18 22:30 Patient is a 28 yo male w/ pmh as described who presents for concerns of respiratory congestion. Patient noted to be acutely congested at evaluation, sepsis protocol started for r/o pneumonia. 04/22/18 23:30 Patient labs significant for hyponatremia and other electrolyte abnormalities as below. EKG negative. CXR concerning for consolidation on left lung. Admitting for pneumonia / respiratory distress. Laboratory Results - last 24 hr 04/22/18 04/22/18 04/22/18 19:31 20:04 20:04 WBC 7.3 RBC 4.25 Hgb 13.6 Hct 41.2 MCV 96.8 H MCH 32.0 MCHC 33.0 RDW 13.3 Plt Count 260 D MPV 7.5 Absolute Neuts (auto) 4.9 Neutrophils % 67.3 Lymphocytes % 24.5 Monocytes % 7.1 Eosinophils % 0.7 Basophils % 0.4 Nucleated RBC % 0 PT with INR 12.60 INR 1.07 PTT (Actin FS) 32.2 VBG pH POC VBG pCO2 POC VBG pO2 Mixed VBG HCO3 Sodium Potassium Chloride Carbon Dioxide Anion Gap BUN Creatinine Creat Clearance w eGFR Random Glucose Lactic Acid 0.9 Calcium Total Bilirubin AST ALT Alkaline Phosphatase Creatine Kinase Troponin I Total Protein Albumin 04/22/18 04/22/18 04/22/18 20:04 20:30 22:21 WBC RBC Hgb Hct MCV MCH MCHC RDW Plt Count MPV Absolute Neuts (auto) Neutrophils % Lymphocytes % Monocytes % Eosinophils % Basophils % Nucleated RBC % PT with INR INR PTT (Actin FS) VBG pH 7.35 POC VBG pCO2 49.3 D POC VBG pO2 45.6 Mixed VBG HCO3 26.7 H Sodium Cancelled 127 L Potassium Cancelled 4.3 Chloride Cancelled 94 L Carbon Dioxide Cancelled 27 Anion Gap Cancelled 6 L BUN Cancelled 9 Creatinine Cancelled 0.3 L Creat Clearance w eGFR Cancelled > 60 Random Glucose Cancelled 111 H Lactic Acid Calcium Cancelled 8.2 L Total Bilirubin Cancelled 0.4 AST Cancelled 23 ALT Cancelled 29 Alkaline Phosphatase Cancelled 148 H Creatine Kinase 44 Troponin I Cancelled < 0.02 Total Protein Cancelled 7.2 Albumin Cancelled 3.4 04/22/18 22:21 WBC RBC Hgb Hct MCV MCH MCHC RDW Plt Count MPV Absolute Neuts (auto) Neutrophils % Lymphocytes % Monocytes % Eosinophils % Basophils % Nucleated RBC % PT with INR INR PTT (Actin FS) VBG pH POC VBG pCO2 POC VBG pO2 Mixed VBG HCO3 Sodium Potassium Chloride Carbon Dioxide Anion Gap BUN Creatinine Creat Clearance w eGFR Random Glucose Lactic Acid Calcium Total Bilirubin AST ALT Alkaline Phosphatase Creatine Kinase Cancelled Troponin I Cancelled Total Protein Albumin <Pritesh Gay - Last Filed: 04/22/18 23:31> *DC/Admit/Observation/Transfer - Discharge Dispostion Decision to Admit order: Yes Decision to Admit order Date/Time: Decision to Admit Order Category Date Time Status Decision to Admit to Hospital Routine Admission 04/22/18 22:29 Active <Jillian Read - Last Filed: 04/22/18 23:11> - Discharge Dispostion Decision to Admit order: Yes <Pritesh Gay - Last Filed: 04/22/18 23:31> Diagnosis at time of Disposition: Hyponatremia Cerebral palsy Qualifiers: Cerebral palsy type: unspecified type Qualified Code(s): G80.9 - Cerebral palsy , unspecified Pneumonia Qualifiers: Pneumonia type: due to unspecified organism Laterality: unspecified laterality Lung location: unspecified part of lung Qualified Code(s): J18.9 - Pneumonia, unspecified organism
[2018-04-22] MEDS ORDERED: AZTREONAM 2 GM in DEXTROSE 5%-WATER 100 ML IVPB ONE (20:18)
[2018-04-22] MEDS ORDERED: VANCOMYCIN 1 GRAM (PRE-DOCKED) 1,000 MG/250 ML BAG IVPB ONE ×2 (20:19→20:46)
[2018-04-22 20:42] LABS: BASO % 0.4 % (0-2.0); EOS % 0.7 % (0-4.5); HEMATOCRIT 41.2 % (35.4-49); HEMOGLOBIN 13.6 GM/dL (11.7-16.9); LYMPH % 24.5 % (8-40); MEAN CELL VOLUME 96.8 fl (80-96); MEAN PLT VOLUME 7.5 fl (7.5-11.1); MONO % 7.1 % (3.8-10.2); NEUT % 67.3 % (42.8-82.8); PLATELET COUNT 260 K/MM3 (134-434); RBC 4.25 M/mm3 (4.00-5.60); RDW 13.3 % (11.9-15.9); WHITE BLOOD COUNT 7.3 K/mm3 (4.0-10.0)
[2018-04-22 20:52] LABS: INR 1.07 (0.83-1.09); PROTHROMBIN TIME (PATIENT) 12.6 SEC (9.7-13.0)
[2018-04-22] MEDS ORDERED: IPRATROPIUM BR 0.02% 0.5 MG/2.5 ML VIAL.NEB. NEB ONE ×4 (20:53→21:24)
--- NOTE | 2018-04-22 20:53 | PDOC ---
Attending Attestation - Resident Resident Name: Pritesh Gay - ED Attending Attestation I have performed the following: I have examined & evaluated the patient, The case was reviewed & discussed with the resident, I agree w/resident's findings & plan - HPI HPI: 04/22/18 23:20 The patient is a 28 y/o M with PMHx of cerebral palsy, epilepsy, recurrent aspiration pneumonia, scoliosis, PEG tube BIBA from [facility] who presents to the emergency department for evaluation of respiratory distress. Was admitted 04/02-04/08 for aspiration pna, urine cx +enterococcus faecalis, given 1 week course of aztreonam and vancomycin. Also hyponatremia that resolved. Allergies: Albuterol, cephalosporins, latex, penicillins - Physicial Exam PE: 04/22/18 21:39 sleeping comfortably, snoring PERRL, EOMI, dry membranes, nl conjunctiva, anicteric; neck supple.+bilateral rhonchi with decreased breath sounds left > right. RRR, abdomen soft nontender. PEG tube in place, c/d/i with dressing. contracted extremities. No peripheral edema. normal color for ethnicity, WWP. 04/22/18 23:22 - Medical Decision Making 04/22/18 21:38 DDx. pneumonia, aspiration pneumonitis, influenza, viral syndrome, mucus plugging, sepsis. electrolyte/metabolic derangements. Vital signs reviewed, wnl. HR in 90s, mildly hypertensive, no fever. Prior notes reviewed, including admissions, discharges and consultations. laboratory results and imaging reviewed, basic labs and lytes wnl, notable for normal lactic. no wbc ct. sodium low 127, compared to prior, likely hypovolemic , given fluids to correct and trend. UA_ CXR_with left sided infiltrative pattern Cardiac panel_neg trop. EKG sinus tachycardia, no interval abnormalities, narrow QRS, ST and T wave segments and morphology normal. Nonspecific T wave abnormalities ED course: no acute events, remained stable and well appearing. Clinically improved after interventions, including atrovent nebs. allergy to albuterol. given IVF, sepsis workup pending including sputum cx, urine cx, blood cx influenza negative. empiric abx, levaquin, vancomycin and aztreonam (due to allergies) Dispo: Admit for recurrent pneumonia and hyponatremia.. Discussed results and management plan with pt and family member at bedside, agree with impression and plan admit to hospitalist team. 04/22/18 23:13 Heart Score/ECG Review - ECG Impressions Normal ECG: No Comment:: 04/22/18 23:13 EKG sinus tachycardia, no interval abnormalities, narrow QRS, ST and T wave segments and morphology normal. Nonspecific T wave abnormalities
[2018-04-22 20:54] LABS: ACTIVATED PTT 32.2 SECONDS (25.2-36.5)
[2018-04-22 20:56] LABS: VENOUS PC02 49.3 mmHg (38-52); VENOUS PH 7.35 (7.32-7.42); VENOUS PO2 45.6 mmHg (28-48)
[2018-04-22 23:08] LABS: ALBUMIN 3.4 g/dl (3.4-5.0); ALK PHOS 148 U/L (45-117); ANION GAP 6 MMOL/L (8-16); BILIRUBIN,TOTAL 0.4 mg/dL (0.2-1); BLOOD UREA NITROGEN 9 mg/dL (7-18); CALCIUM 8.2 mg/dL (8.5-10.1); CHLORIDE 94 mmol/L (98-107); CO2 27 mmol/L (21-32); CREATININE 0.3 mg/dL (0.55-1.3); GLUCOSE,RANDOM 111 mg/dL (74-106); POTASSIUM 4.3 mmol/L (3.5-5.1); SGOT/AST 23 U/L (15-37); SGPT/ALT 29 U/L (13-61); SODIUM 127 mmol/L (136-145); TOT PROT 7.2 g/dl (6.4-8.2)
[2018-04-22] MEDS ORDERED: SODIUM CHLORIDE 1,000 ML IV STA (23:10)
[2018-04-23] MEDS ORDERED: LORazepam 1 MG TABLET GT PRN (01:00)
[2018-04-23] MEDS: LACTATED RINGERS SOLUTION 1,000 ML/1,000 ML INFUS.BAG IV SCH ×3 (02:32→22:49)
--- NOTE | 2018-04-23 02:36 | HP ---
CHIEF COMPLAINT: hypoxia PCP: Dr. Melendez HISTORY OF PRESENT ILLNESS: Patient is a 28 y/o male from [place] with a history of MR, cerebral palsy, seizures, and scoliosis who presents with hypoxia. A nurse from [place] reported that the patient began desaturating. A physician examined him and noted rhonchi at the bases, they put him on oxygen but his oxygen saturation did not improve and he was brought in by EMS. Patient has been here 5 times in the past year the most recent visit being 04/02/18 where he was treated for 1 week with aztreonam and vancomycin. Patient is nonresponsive on exam. Patient is saturating well, 98% on room air upon examination and in no acute distress. ER course was notable for: (1) Aztreonam (2) Levaquin (3) Vancomycin Recent Travel: no PAST MEDICAL HISTORY: MR, cerebral palsy, seizures, scoliosis PAST SURGICAL HISTORY: Social History: Smoking: Alcohol: Drugs: Family History: Allergies albuterol Allergy (Verified 02/13/18 22:09) Cephalosporins Allergy (Verified 02/13/18 22:09) latex Allergy (Verified 02/13/18 22:09) Penicillins Allergy (Verified 02/13/18 22:09) shrimp Allergy (Verified 02/13/18 22:09) wool Allergy (Verified 02/13/18 22:09) HOME MEDICATIONS: Home Medications Medication Instructions Recorded Clobazam [Onfi -] 10 mg GT BID 11/23/17 Diazepam [Diastat] 10 mg RC ONCE PRN 11/23/17 Fluticasone Prop 0.05% Nasal 2 spray NS HS 11/23/17 [Flonase -] Lorazepam [Ativan] 1 mg GT ASDIR PRN 11/23/17 Polyethylene Glycol 3350 [Miralax 17 gm GT ASDIR 11/23/17 119 gm Btl -] Rufinamide [Banzel] 1,600 mg GT BID 11/23/17 Zonisamide [Zonegran -] 50 mg GT HS 11/23/17 Zonisamide [Zonegran] 200 mg GT TID 11/23/17 Topiramate [Topamax] 200 mg GT DAILY 02/14/18 Carbamazepine 300 mg GT DAILY 04/02/18 Ipratropium 0.02% Nebulizer 1 amp IH QID 04/02/18 [Atrovent 0.02% Nebulizer -] Topiramate [Qudexy Xr] 400 mg GT HS 04/02/18 Carbamazepine 400 mg GT AM 04/03/18 Carbamazepine 400 mg GT HS 04/03/18 Silver Sulfadiazine 1% Top Cr 1 appful TP TID 04/22/18 REVIEW OF SYSTEMS unable to obtain PHYSICAL EXAMINATION Vital Signs - 24 hr 04/22/18 04/22/18 04/22/18 19:11 20:35 22:10 Temperature 98.6 F Pulse Rate 98 H Pulse Rate [ 121 H Apical] Respiratory 18 17 Rate Blood Pressure 158/130 H Blood Pressure 102/64 [Right Arm] O2 Sat by Pulse 100 99 100 Oximetry (%) 04/23/18 01:11 Temperature 98.3 F Pulse Rate Pulse Rate [ 108 H Apical] Respiratory 19 Rate Blood Pressure Blood Pressure 123/83 [Right Arm] O2 Sat by Pulse 96 Oximetry (%) GENERAL: Awake, alert HEAD: Normal with no signs of trauma. EYES: Pupils equal, round and reactive to light, extraocular movements intact, EARS, NOSE, THROAT: Moist mucous membranes. NECK: supple without lymphadenopathy, JVD, or masses. LUNGS: slight rhonchi at bilateral bases. No accessory muscle use. HEART: Regular rate and rhythm, normal S1 and S2 without murmur, rub or gallop. ABDOMEN: Soft, nontender, not distended, normoactive bowel sounds, no guarding, no rebound, no masses. No hepatomegaly or splenomegaly. LOWER EXTREMITIES: warm, well-perfused. No calf tenderness. No peripheral edema. SKIN: Warm, dry, normal turgor, no rashes or lesions noted, normal capillary refill. Laboratory Results - last 24 hr CBC, BMP 04/22/18 20:04 04/22/18 22:21 ASSESSMENT/PLAN: Patient is a 28 y/o male from [place] with a history of MR, cerebral palsy, seizures, and scoliosis who presents with hypoxia and found hyponatremia. #hyponatremia likely 2/2 to dehydration - recurrent as seen from previous admissions - currently 127 - f/u urine osmolarity, urine electrolyes, serum osmolarity - ordered [place] catheter one time for urine collection - continue LR @ 100 - patient NPO overnight - determine proper feeds/fluid though patients NG tube, patient has recurrent hyponatremia, can also suspect medications #hypoxia 2/2 to mucous plugging vs PNA vs pneumonitis - low suspicion for infectious process, no WBC, no fever - patient given Aztreonam, Levaquin, and Vanc in ED - continue to monitor on room air - respiratory therapy - CXR: severely rotated, hard to distinguish, no clear infiltrate - f/u CXR in AM - f/u sputum cx; spoke with nurse pt not able to follow commands and does not bring much up - O2 prn if saturation <88 - influenza negative #increasd alk phosp - 148, past history also increased - past abd US showed no abnormalities #seizure disorder - home medications restarted Visit type - Emergency Visit Emergency Visit: Yes ED Registration Date: 04/23/18 Care time: The patient presented to the Emergency Department on the above date and was hospitalized for further evaluation of their emergent condition. - New Patient This patient is new to me today: Yes Date on this admission: 04/23/18 - Critical Care Critical Care patient: No
--- NOTE | 2018-04-23 05:34 | PN ---
Teaching Attending Note Name of Resident: Leti Franz ATTENDING PHYSICIAN STATEMENT I saw and evaluated the patient. I reviewed the resident's note and discussed the case with the resident. I agree with the resident's findings and plan as documented. SUBJECTIVE: Patient seen and examined; he is known to me from prior admission; please see resident note for further historical information. This is a pleasant 28 y/o CM with a PMH significant for CP requiring ATC care at facility including PEG feeds who is nonverbal/bed bound at his baseline, epilepsy on multiple AEDs, severe scoliosis s/p sgy, multiple admissions for aspiration pna recurring, colonization with MDROs. He cannot provide history with his underlying CP. He was brought in due to those at the facility feeling that his breath sounded gurguly and that he had some increasing O2 requirements. In prior admits it is said he was not on O2 at his facility; we spoke to the facility personally tonight, though, and they state that he is intermittently on O2 PRN. He does not appear in any respiratory distress and was saturating between 92%-97% on RA when I assessed him with the residents. His Na was low on his last admission and it is low again today to the same range. He is afebrile and without any white count. He was last here from 04/02-04/08 on our service for aspiration pneumonia found to have EF colonized in urine and was treated successfully with a course of aztreonam and vancomycin. He will be monitored on the floor. OBJECTIVE: VSS, labs and imaging reviewed from this and prior admissions. NAD Awake and alert but nonverbal at his baseline (known from prior admits) resting in bed CN2-12 grossly intact, cannot participate in neuro exam due to underlying issues. Normal muscle tone, moves all extremities. Not agitiated RRR (intermittent mild tachy to low 100s), s1/2 no mgr Lung exam difficult as severe scoliosis, difficult to follow commands. Perhaps some scattered ronchi with upper airway sounds. Appears to be with sym exp but marked scoliosis limits full assessment. NT ND +BS Trachea midline, no JVD CXR with chronic changes; suboptimal study makes it difficult to interpret subtle findings but I don't see a marianela PNA, etc. Afebrile, no white count Na 127 ASSESSMENT AND PLAN: Mr. Patterson is a 28 y/o patient with recurring aspiration PNA likely 2/2 PEG feeds presents today from his facility with concern of pneumonia. He is saturating well on RA, is afebrile without a white count, and is hemodynamically stable. He is found to be hyponatremic. 1) Acute transient hypoxia with history of recurring aspiration pneumonia -Will hold off on treating for pneumonia at this juncture. This is due to the fact he has no white count, no marianela infiltrates, no fever. He likely is chronically microaspirating his feeds. He was hypoxic and gurgly (assuming upper airway sounds?) at his facility; he is saturating well on RA here. -PRN O2 (which he DOES get at his facility), chest physiotherapy, check legionella and sputum cx, recheck CXR in AM (in case exposure or hydration status made infiltrate difficult to discern). If he becomes febrile or clinically warrants coverage we will of course begin, taking into account the organisms he has grown out in the past as well as the current results. Checking the legionella as low Na can be seen with a legionella PNA. -Discuss different feeding schedules with nutrition to see if there is anything we can do to minimize risk 2) Acute Hyponatremia, recurring -Hypovolemic to euvolemic; resolved with hydration and tx acute issue in the past. Checking serum/urine osm, urine Na. Check legionella Ag -Obtain feed information from the facility to see if he was getting extra free H20, etc? -As tachy and was aparently dry looking on presentation continuing LR overnight and recheck in AM taking care not to overcorrect. 3) History of Epilepsy -No current seizure activity -Continue all his home medications at appropriate times -Seizure precations should be ordered 4) History of Scoliosis -No acute issues; makes CXR interpretation challenging. 5) Cerebral Palsy -At baseline; monitor Dispo: Assuming resolution of hyponatremia and maintaining good respiratory status I assume he can be DC <72 hours unless other issues arise. He does use PRN O2 at his facility. He has been here several times already in 2018 and I am concerned of his overall prognosis moving forward. Full Code
[2018-04-23] MEDS: SILVER SULFADIAZINE 1% TOP CREAM 400 GM JAR TP SCH ×3 (06:50→22:48)
[2018-04-23] MEDS: carBAMazepine 200 MG/10 ML UNIT-DOSE CUP GT SCH ×3 (06:50→22:46)
[2018-04-23 06:51] LABS: ALBUMIN 3.4 g/dl (3.4-5.0); ALK PHOS 149 U/L (45-117); ANION GAP 7 MMOL/L (8-16); BILIRUBIN,TOTAL 0.7 mg/dL (0.2-1); BLOOD UREA NITROGEN 6 mg/dL (7-18); CALCIUM 8.3 mg/dL (8.5-10.1); CHLORIDE 100 mmol/L (98-107); CO2 26 mmol/L (21-32); CREATININE 0.3 mg/dL (0.55-1.3); GLUCOSE,RANDOM 86 mg/dL (74-106); POTASSIUM 4.3 mmol/L (3.5-5.1); SGOT/AST 16 U/L (15-37); SGPT/ALT 27 U/L (13-61); SODIUM 133 mmol/L (136-145)
[2018-04-23] MEDS: ZONISAMIDE 100 MG/10 ML ORAL SUSPENSION GT SCH ×4 (06:51→22:48)
[2018-04-23 06:58] LABS: HEMATOCRIT 38.4 % (35.4-49); HEMOGLOBIN 12.6 GM/dL (11.7-16.9); MCH 31.7 pg (25.7-33.7); MCHC 32.9 g/dl (32.0-35.9); MEAN CELL VOLUME 96.5 fl (80-96); MEAN PLT VOLUME 6.9 fl (7.5-11.1); PLATELET COUNT 215 K/MM3 (134-434); RBC 3.97 M/mm3 (4.00-5.60); RDW 13.2 % (11.9-15.9)
[2018-04-23] MEDS: IPRATROPIUM BR 0.02% 0.5 MG/2.5 ML VIAL.NEB. NEB SCH ×4 (07:30→20:23)
--- NOTE | 2018-04-23 08:58 | CONSULT ---
Consultation: REQUESTING PROVIDER: Dr. Mohr CONSULT REQUEST: We have been asked to medically evaluate this patient for Pulmonology Evaluation. HISTORY OF PRESENT ILLNESS: 28 yo Male with PMH MR, CP, scoliosis, seizures, Admitted from [facility] for worsening SOB and was noted with desaturations which did not improve with O2 therapy. He was seen by a physician there who noted bibasilar rhonchi and recommended transfer to the ED. Of note he was recently admitted this month and was treated with Aztreonam and Vancomycin as the patient is PCN allergic. REVIEW OF SYSTEMS: Unable to Obtain PHYSICAL EXAMINATION Vital Signs - 24 hr 04/22/18 04/22/18 04/22/18 19:11 20:35 22:10 Temperature 98.6 F Pulse Rate 98 H Pulse Rate [ 121 H Apical] Respiratory 18 17 Rate Blood Pressure 158/130 H Blood Pressure 102/64 [Right Arm] O2 Sat by Pulse 100 99 100 Oximetry (%) 04/23/18 04/23/18 04/23/18 01:11 02:00 04:35 Temperature 98.3 F 98.9 F Pulse Rate 99 H Pulse Rate [ 108 H Apical] Respiratory 19 20 Rate Blood Pressure 107/73 Blood Pressure 123/83 [Right Arm] O2 Sat by Pulse 96 99 99 Oximetry (%) 04/23/18 06:00 Temperature 98.7 F Pulse Rate 61 Pulse Rate [ Apical] Respiratory 20 Rate Blood Pressure 107/61 Blood Pressure [Right Arm] O2 Sat by Pulse Oximetry (%) GENERAL: Alert, nonverbal though responds to verbal stimuli, no acute distress EYES: PERRL, no scleral icterus EARS, NOSE, THROAT: Moist mucous membranes with thin mucus drainage from mouth NECK: supple without lymphadenopathy LUNGS: Diffuse rhonchi HEART: Regular rate and rhythm, normal S1 and S2 without murmur ABDOMEN: Soft, nontender to palpation MUSCULOSKELETAL: Scoliosis EXTREMITIES: contracted NEUROLOGICAL: Cranial nerves II-XII grossly intact. Laboratory Results - last 24 hr 04/22/18 04/22/18 04/22/18 19:31 20:04 20:04 WBC 7.3 RBC 4.25 Hgb 13.6 Hct 41.2 MCV 96.8 H MCH 32.0 MCHC 33.0 RDW 13.3 Plt Count 260 D MPV 7.5 Absolute Neuts (auto) 4.9 Neutrophils % 67.3 Lymphocytes % 24.5 Monocytes % 7.1 Eosinophils % 0.7 Basophils % 0.4 Nucleated RBC % 0 PT with INR 12.60 INR 1.07 PTT (Actin FS) 32.2 VBG pH POC VBG pCO2 POC VBG pO2 Mixed VBG HCO3 Sodium Potassium Chloride Carbon Dioxide Anion Gap BUN Creatinine Creat Clearance w eGFR Random Glucose Lactic Acid 0.9 Calcium Total Bilirubin AST ALT Alkaline Phosphatase Creatine Kinase Troponin I Total Protein Albumin 04/22/18 04/22/18 04/22/18 20:04 20:30 22:21 WBC RBC Hgb Hct MCV MCH MCHC RDW Plt Count MPV Absolute Neuts (auto) Neutrophils % Lymphocytes % Monocytes % Eosinophils % Basophils % Nucleated RBC % PT with INR INR PTT (Actin FS) VBG pH 7.35 POC VBG pCO2 49.3 D POC VBG pO2 45.6 Mixed VBG HCO3 26.7 H Sodium Cancelled 127 L Potassium Cancelled 4.3 Chloride Cancelled 94 L Carbon Dioxide Cancelled 27 Anion Gap Cancelled 6 L BUN Cancelled 9 Creatinine Cancelled 0.3 L Creat Clearance w eGFR Cancelled > 60 Random Glucose Cancelled 111 H Lactic Acid Calcium Cancelled 8.2 L Total Bilirubin Cancelled 0.4 AST Cancelled 23 ALT Cancelled 29 Alkaline Phosphatase Cancelled 148 H Creatine Kinase 44 Troponin I Cancelled < 0.02 Total Protein Cancelled 7.2 Albumin Cancelled 3.4 04/22/18 04/23/18 04/23/18 22:21 05:30 05:30 WBC 10.0 RBC 3.97 L Hgb 12.6 Hct 38.4 MCV 96.5 H MCH 31.7 MCHC 32.9 RDW 13.2 Plt Count 215 MPV 6.9 L Absolute Neuts (auto) Neutrophils % Lymphocytes % Monocytes % Eosinophils % Basophils % Nucleated RBC % PT with INR INR PTT (Actin FS) VBG pH POC VBG pCO2 POC VBG pO2 Mixed VBG HCO3 Sodium 133 L Potassium 4.3 Chloride 100 Carbon Dioxide 26 Anion Gap 7 L BUN 6 L Creatinine 0.3 L Creat Clearance w eGFR > 60 Random Glucose 86 Lactic Acid Calcium 8.3 L Total Bilirubin 0.7 AST 16 ALT 27 Alkaline Phosphatase 149 H Creatine Kinase Cancelled Troponin I Cancelled Total Protein 7.0 Albumin 3.4 Active Medications Generic Name Dose Route Start Last Admin Trade Name Freq PRN Reason Stop Dose Admin Carbamazepine 300 mg 04/23/18 14:00 Tegretol Oral Suspension - GT DAILY@1400 BRAD Carbamazepine 400 mg 04/23/18 07:00 04/23/18 06:50 Tegretol Oral Suspension - GT 400 mg BID@0700,2200 BRAD Administration Clobazam 10 mg 04/23/18 10:00 Onfi - GT BID BRAD Fluticasone Propionate 2 spray 04/23/18 22:00 Flonase - NS HS BRAD Lactated Ringer's 1,000 ml in 1,000 mls @ 100 mls/hr 04/23/18 00:45 04/23/18 02:32 Lactated Ringers Solution IV 100 mls/hr ASDIR BRAD Administration Ipratropium [place] 1 amp 04/23/18 08:00 04/23/18 07:30 Atrovent 0.02% Nebulizer - NEB 1 amp RQID BRAD Administration Lorazepam 1 mg 04/23/18 01:00 Ativan - GT ASDIR PRN seizure Non-Formulary Medication 1 each 04/23/18 10:00 Patient's Own Med PO DAILY BRAD Silver Sulfadiazine 1 applic 04/23/18 06:00 04/23/18 06:50 Silvadene - TP 1 applic TID BRAD Administration Topiramate 200 mg 04/23/18 10:00 Topamax - GT DAILY BRAD Topiramate 400 mg 04/23/18 22:00 Topamax - GT HS BRAD Zonisamide 200 mg 04/23/18 06:00 04/23/18 06:51 Zonisamide GT 200 mg TID BRAD Administration Zonisamide 50 mg 04/23/18 22:00 Zonisamide GT HS BRAD ASSESSMENT/PLAN: 28 yo Male with PMH MR, CP, scoliosis, seizures, Admitted from [facility] for worsening SOB and was noted with desaturations which did not improve initially with O2 therapy. Acute Hypoxic Respiratory Distress -Improving -Unlikely infectious cause -Possible mucus plugging which has now resolved -Saturating well on 2L NC, wean off O2 -Albuterol NEBs PRN -Atrovent NEBs QID PRN -Chest PT -Afebrile with no elevation of WBC, would trial off Abx for now -Aspiration precautions, elevated head of bed Hyponatremia -Chronic, improved from 127 to 133 today -[place] catheter for UA and urine Lytes -Serum Osm 277 -Pt on LR for fluids to not overcorrect as he is correcting without any additional saline Seizures -Aide states most recent seizure was 2 days ago but that pt has not had one since arrival to hospital -Otherwise stable on home meds -Seizure precautions DVT Prophylaxis FEN -Fluids: LR @ 100 cc/hr -Electrolytes:Monitor and Replete prn -Nutrition: Through G-tube only, currently no diet Dispo: We will continue to follow the patient. Thank you for this consultative opportunity. Visit type - Emergency Visit Emergency Visit: Yes ED Registration Date: 04/23/18 Care time: The patient presented to the Emergency Department on the above date and was hospitalized for further evaluation of their emergent condition. - New Patient This patient is new to me today: Yes Date on this admission: 04/23/18 - Critical Care Critical Care patient: No
[2018-04-23] MEDS ORDERED: RUFINAMIDE GT SCH (10:00)
[2018-04-23] MEDS ORDERED: PT OWN MED DRAWER 7, Y5N ONE ×2 (10:28→15:04)
[2018-04-23] MEDS: cloBAZam 10 MG TABLET GT SCH ×2 (10:34→22:49)
[2018-04-23] MEDS: TOPIRAMATE 100 MG TABLET GT SCH (10:34)
--- NOTE | 2018-04-23 10:45 | PN ---
Physical Exam: SUBJECTIVE: Patient seen and examined this morning at bedside. Patient non verbal at baseline. Unable to perform review of systems. OBJECTIVE: Vital Signs Period Temp Pulse Resp BP Sys/Grossman Pulse Ox Last 24 Hr 98.3 F-98.9 F 61-121 17-20 102-158/61-130 96-100 GENERAL: Awake, NAD, lying comfortably with head of bed elevated, Nonverbal HEAD: NCAT EYES: PERRL ENT: Ears normal, nares patent, oropharynx clear without exudates, moist mucous membranes. NECK: Supple, No JVD LUNGS: Rhonchi at bases, poor inspiratory effort HEART: RRR, S1 S2 without murmur ABDOMEN: Soft, nontender, nondistended, + bowel sounds, no guarding. G tube in place with clean, dry surrounding dressing, no surrounding erythema EXTREMITIES: 2+ pulses, No peripheral edema NEUROLOGICAL: Unable to assess due to baseline mental status. SKIN: Warm, dry Laboratory Results - last 24 hr 04/22/18 04/22/18 04/22/18 19:31 20:04 20:04 WBC 7.3 RBC 4.25 Hgb 13.6 Hct 41.2 MCV 96.8 H MCH 32.0 MCHC 33.0 RDW 13.3 Plt Count 260 D MPV 7.5 Absolute Neuts (auto) 4.9 Neutrophils % 67.3 Lymphocytes % 24.5 Monocytes % 7.1 Eosinophils % 0.7 Basophils % 0.4 Nucleated RBC % 0 PT with INR 12.60 INR 1.07 PTT (Actin FS) 32.2 VBG pH POC VBG pCO2 POC VBG pO2 Mixed VBG HCO3 Sodium Potassium Chloride Carbon Dioxide Anion Gap BUN Creatinine Creat Clearance w eGFR Random Glucose Serum Osmolality Lactic Acid 0.9 Calcium Total Bilirubin AST ALT Alkaline Phosphatase Creatine Kinase Troponin I Total Protein Albumin 04/22/18 04/22/18 04/22/18 20:04 20:30 22:21 WBC RBC Hgb Hct MCV MCH MCHC RDW Plt Count MPV Absolute Neuts (auto) Neutrophils % Lymphocytes % Monocytes % Eosinophils % Basophils % Nucleated RBC % PT with INR INR PTT (Actin FS) VBG pH 7.35 POC VBG pCO2 49.3 D POC VBG pO2 45.6 Mixed VBG HCO3 26.7 H Sodium Cancelled 127 L Potassium Cancelled 4.3 Chloride Cancelled 94 L Carbon Dioxide Cancelled 27 Anion Gap Cancelled 6 L BUN Cancelled 9 Creatinine Cancelled 0.3 L Creat Clearance w eGFR Cancelled > 60 Random Glucose Cancelled 111 H Serum Osmolality Lactic Acid Calcium Cancelled 8.2 L Total Bilirubin Cancelled 0.4 AST Cancelled 23 ALT Cancelled 29 Alkaline Phosphatase Cancelled 148 H Creatine Kinase 44 Troponin I Cancelled < 0.02 Total Protein Cancelled 7.2 Albumin Cancelled 3.4 04/22/18 04/23/18 04/23/18 22:21 05:30 05:30 WBC 10.0 RBC 3.97 L Hgb 12.6 Hct 38.4 MCV 96.5 H MCH 31.7 MCHC 32.9 RDW 13.2 Plt Count 215 MPV 6.9 L Absolute Neuts (auto) Neutrophils % Lymphocytes % Monocytes % Eosinophils % Basophils % Nucleated RBC % PT with INR INR PTT (Actin FS) VBG pH POC VBG pCO2 POC VBG pO2 Mixed VBG HCO3 Sodium Potassium Chloride Carbon Dioxide Anion Gap BUN Creatinine Creat Clearance w eGFR Random Glucose Serum Osmolality 277 L Lactic Acid Calcium Total Bilirubin AST ALT Alkaline Phosphatase Creatine Kinase Cancelled Troponin I Cancelled Total Protein Albumin 04/23/18 05:30 WBC RBC Hgb Hct MCV MCH MCHC RDW Plt Count MPV Absolute Neuts (auto) Neutrophils % Lymphocytes % Monocytes % Eosinophils % Basophils % Nucleated RBC % PT with INR INR PTT (Actin FS) VBG pH POC VBG pCO2 POC VBG pO2 Mixed VBG HCO3 Sodium 133 L Potassium 4.3 Chloride 100 Carbon Dioxide 26 Anion Gap 7 L BUN 6 L Creatinine 0.3 L Creat Clearance w eGFR > 60 Random Glucose 86 Serum Osmolality Lactic Acid Calcium 8.3 L Total Bilirubin 0.7 AST 16 ALT 27 Alkaline Phosphatase 149 H Creatine Kinase Troponin I Total Protein 7.0 Albumin 3.4 Microbiology 04/22/18 20:46 Nasopharyngeal Swab Influenza Types A,B Antigen - Final 04/22/18 20:46 Nasopharyngeal Swab - Final Active Medications Carbamazepine (Tegretol Oral Suspension -) 300 mg GT DAILY@1400 [facility] Last Admin: 04/23/18 15:09 Dose: 300 mg Carbamazepine (Tegretol Oral Suspension -) 400 mg GT BID@0700,2200 [facility] Last Admin: 04/23/18 06:50 Dose: 400 mg Clobazam (Onfi -) 10 mg GT BID [facility] Last Admin: 04/23/18 10:34 Dose: 10 mg Fluticasone Propionate (Flonase -) 2 spray NS HS BRAD Lactated Ringer's (Lactated Ringers Solution) 1,000 ml in 1,000 mls @ 100 mls/ hr IV ASDIR BRAD Last Admin: 04/23/18 10:40 Dose: 100 mls/hr Levofloxacin (Levaquin 500 Mg Premixed Ivpb -) 500 mg in 100 mls @ 100 mls/hr IVPB DAILY BRAD; Protocol Last Admin: 04/23/18 17:52 Dose: Not Given Ipratropium [place] (Atrovent 0.02% Nebulizer -) 1 amp NEB RQID BRAD Last Admin: 04/23/18 16:01 Dose: 1 amp Lorazepam (Ativan -) 1 mg GT ASDIR PRN PRN Reason: seizure Non-Formulary Medication (Patient's Own Med) 1 each PO DAILY BRAD Silver Sulfadiazine (Silvadene -) 1 applic TP TID BRAD Last Admin: 04/23/18 15:10 Dose: 1 applic Topiramate (Topamax -) 200 mg GT DAILY BRAD Last Admin: 04/23/18 10:34 Dose: 200 mg Topiramate (Topamax -) 400 mg GT HS BRAD Zonisamide (Zonisamide) 200 mg GT TID BRAD Last Admin: 04/23/18 15:09 Dose: 200 mg Zonisamide (Zonisamide) 50 mg GT HS BRAD IMAGING: -CXR (04/22): Extensive thoracolumbar scoliosis with metallic hardware in place. The right diaphragm is elevated. Normal aeration of the right lung, without pulmonary infiltrates, atelectasis, pneumothorax or pleural effusion. No evidence of vascular congestive changes. Significant portion of the left lung is obscured by the cardiac silhouette. Metallic device projecting over the left midlung zone. No airspace opacities are seen in the left upper lung zone, left costophrenic angle. Left retrocardiac atelectasis cannot be entirely excluded. -CXR (04/23): No significant change since 04/22/2018 study. -EKG: SINUS TACHYCARDIA, LEFT ATRIAL ENLARGEMENT, RIGHT AXIS DEVIATION, INCOMPLETE RIGHT BUNDLE BRANCH BLOCK, RIGHT VENTRICULAR HYPERTROPHY, VR 112, QTc 461 ASSESSMENT/PLAN: 28 y/o M with PMHx of MR, cerebral palsy, epilepsy, recurrent aspiration pneumonia, scoliosis presents from [facility] with hypoxia and is found to have hyponatremia #Pneumococcal Pneumonia -Positive Step Pneumo Urine Antigen -Started on Levaquin 500mg Daily [given PCN and Cephalosporines allergy] ( Started on 04/13) -Daily monitoring QTc prolongation and seizures -Daily EKG ordered #Hyponatremia -127 on admission; Recurrent episodes of Hyponatremia during prior admission -Can consider fluid intake, medication use -[place] catheter placed, urine osmolarity, electrolyes ordered -Serum osmolarity 277 -Continue IV LR @ 100 mls/hr -Continue to monitor -Determine proper feeds/fluid though NG tube #Hypoxia -Likely due to to mucous plugging vs recurrent aspiration pneumonia vs pneumonitis -No WBC, no fever -Given Aztreonam, Levaquin, and Vanc in ED; will monitor off ABx -CXR (04/22): Without pulmonary infiltrates, atelectasis, pneumothorax or pleural effusion. No evidence of vascular congestive changes. -CXR (04/23): No significant change since 04/22/2018 study. -Not on Home O2 -Sputum cx order; hx of Pseudomonas in sputum -Flu swab negative -Chest PT #Hx of Epilepsy -Monitor closely for seizure activity and possibly aspiration, Continue home meds -Carbamazepine 400 mg AM, 300 mg noon, 400 mg HS GT QD -Clozabam 10 mg GT BID -Ativan 1 mg GT PRN -Topiramate 300 mg GT QD -Topiramate 200 mg GT AM, HS -Zonisamide 200 mg GT TID -Zonisamide 50 mg GT HS #FEN -IV LR @ 100 mls/hr -Hyponatremia -Front End Software Developer consulted during previous visit: Tube Feed Osmolite 1.2 goal rate 60ml/hr x 24 hours with 25 ml water flush each hour of feeding #PPx -DVT: SCDs Dispo: Obs med-surg Visit type - Emergency Visit Emergency Visit: Yes ED Registration Date: 04/23/18 Care time: The patient presented to the Emergency Department on the above date and was hospitalized for further evaluation of their emergent condition. - New Patient This patient is new to me today: Yes Date on this admission: 04/23/18 - Critical Care Critical Care patient: No - Discharge Referral Referred to [facility] Med [facility] No
--- NOTE | 2018-04-23 12:06 | EKG ---
Test Reason : Blood Pressure : / mmHG Vent. Rate : 112 BPM Atrial Rate : 112 BPM P-R Int : 152 ms QRS Dur : 098 ms QT Int : 338 ms P-R-T Axes : 041 151 048 degrees QTc Int : 461 ms SINUS TACHYCARDIA LEFT ATRIAL ENLARGEMENT RIGHT AXIS DEVIATION INCOMPLETE RIGHT BUNDLE BRANCH BLOCK RIGHT VENTRICULAR HYPERTROPHY ABNORMAL ECG WHEN COMPARED WITH ECG OF 02-APR-2018 19:55, INCOMPLETE RIGHT BUNDLE BRANCH BLOCK IS NOW PRESENT Confirmed by DENNIS STEINBERG MD ([id number]) on 04/23/2018 12:06:07 PM Referred By: Confirmed By:DENNIS STEINBERG MD
--- NOTE | 2018-04-23 12:31 | PN ---
Teaching Attending Note Name of Resident: Peyman Mcclure ATTENDING PHYSICIAN STATEMENT I saw and evaluated the patient. I reviewed the resident's note and discussed the case with the resident. I agree with the resident's findings and plan as documented. PULMONARY IMP HYPOXEMIA ? MUCUS PLUG ? BRONCHITIS MR CP H/O SEIZURES KYPHOSCOLIOSIS HYPONATREMIA PLAN O2 INHALED BRONCHODILATORS ASPIRATION PRECAUTIONS MONITOR REMEDIOS ORTIZ DR Problem List - Problems (1) Hyponatremia Code(s): E87.1 - HYPO-OSMOLALITY AND HYPONATREMIA (2) Cerebral palsy Code(s): G80.9 - CEREBRAL PALSY, UNSPECIFIED Qualifiers: Cerebral palsy type: unspecified type Qualified Code(s): G80.9 - Cerebral palsy, unspecified (3) Hypoxia Code(s): R09.02 - HYPOXEMIA (4) SOB (shortness of breath) Code(s): R06.02 - SHORTNESS OF BREATH (5) Functional quadriplegia Code(s): R53.2 - FUNCTIONAL QUADRIPLEGIA (6) Scoliosis Code(s): M41.9 - SCOLIOSIS, UNSPECIFIED (7) Seizure Code(s): R56.9 - UNSPECIFIED CONVULSIONS
--- NOTE | 2018-04-23 15:32 | PN ---
Teaching Attending Note Name of Resident: Raciel Woodson ATTENDING PHYSICIAN STATEMENT I saw and evaluated the patient. I reviewed the resident's note and discussed the case with the resident. I agree with the resident's findings and plan as documented. SUBJECTIVE: no events over night unable to obtain hx. per aid , patient looks at base line of producing secretions OBJECTIVE: NAD CV: RRR Lungs: course breath sounds b/l Ext: no edema ASSESSMENT AND PLAN: 28 y/o man with h/o seizure disorder, cerebral palsy, and mental retardation , and recurrent aspiration PNA, who was sent from [place] due to increased cough and secretions 1- Increased secretions and cough. possible aspiration event. No clinical signs of PNA. hold off ABx. per [facility] staff, patient uses O2 on and off. pulm eval pending Recs taper O2 off 2- h/o Seizure disorder. - cont home meds - [facility] to bring Astrid 3- hyponatremia : chronic and mild . no sx . dispo : return to [place] in am
[2018-04-23 16:31] VITALS: BMI 20.7
[2018-04-23] MEDS ORDERED: CEFTRIAXONE 1 GM in DEXTROSE 5%-WATER - 100 ML IVPB SCH (17:00)
[2018-04-23] MEDS ORDERED: HYDROCOLLOID DRESSING TP PRN (18:52)
[2018-04-23] MEDS ORDERED: diazePAM 5 MG TABLET GT PRN (18:52)
[2018-04-23] MEDS ORDERED: CARBAMAZEPINE 400 MG GT SCH (22:00)
[2018-04-23] MEDS ORDERED: TOPIRAMATE 400 MG GT SCH (22:00)
[2018-04-23] MEDS: BANZEL 400 MG GT SCH (22:46)
[2018-04-23] MEDS: FLUTICASONE PROP 0.05% 16 GM NASAL SPRAY NS SCH (22:47)
[2018-04-23] MEDS: TOPIRAMATE 200 MG TABLET (FP) GT SCH (22:48)
[2018-04-24] MEDS: LACTATED RINGERS SOLUTION 1,000 ML/1,000 ML INFUS.BAG IV SCH ×2 (07:21→23:42)
[2018-04-24] MEDS: carBAMazepine 200 MG/10 ML UNIT-DOSE CUP GT SCH ×3 (07:21→22:20)
[2018-04-24] MEDS: ZONISAMIDE 100 MG/10 ML ORAL SUSPENSION GT SCH ×4 (07:21→22:22)
[2018-04-24] MEDS: SILVER SULFADIAZINE 1% TOP CREAM 400 GM JAR TP SCH ×3 (07:22→22:17)
[2018-04-24] MEDS: IPRATROPIUM BR 0.02% 0.5 MG/2.5 ML VIAL.NEB. NEB SCH ×4 (08:40→20:50)
[2018-04-24 08:46] LABS: ANION GAP 8 MMOL/L (8-16); BLOOD UREA NITROGEN 8 mg/dL (7-18); CALCIUM 8.1 mg/dL (8.5-10.1); CHLORIDE 103 mmol/L (98-107); CO2 25 mmol/L (21-32); GLUCOSE,RANDOM 94 mg/dL (74-106); PHOSPHOROUS 4.8 mg/dL (2.5-4.9); POTASSIUM 4.2 mmol/L (3.5-5.1); SODIUM 137 mmol/L (136-145)
[2018-04-24 09:17] LABS: BASO % 0.3 % (0-2.0); EOS % 0.9 % (0-4.5); HEMATOCRIT 37.2 % (35.4-49); LYMPH % 18.4 % (8-40); MCH 31.3 pg (25.7-33.7); MCHC 32.1 g/dl (32.0-35.9); MEAN CELL VOLUME 97.5 fl (80-96); MONO % 7.4 % (3.8-10.2); PLATELET COUNT 218 K/MM3 (134-434); RBC 3.82 M/mm3 (4.00-5.60); RDW 13.1 % (11.9-15.9); WHITE BLOOD COUNT 5.7 K/mm3 (4.0-10.0)
[2018-04-24 09:58] LABS: CREATININE < 0.2 mg/dL (0.55-1.3)
[2018-04-24] MEDS: cloBAZam 10 MG TABLET GT SCH ×3 (11:15→22:18)
[2018-04-24] MEDS: BANZEL 400 MG GT SCH ×2 (11:16→22:18)
[2018-04-24] MEDS: TOPIRAMATE 100 MG TABLET GT SCH (11:17)
--- NOTE | 2018-04-24 11:45 | PN ---
Progress Note (short form) - Note Progress Note: NAD on NC O2. No acute events overnight. Noted (+) Pneumococcal antigen Intake & Output 04/21/18 04/22/18 04/23/18 04/24/18 23:59 23:59 23:59 23:59 Intake Total 1265 2150 Balance 1265 2150 Weight 278 lb 10.629 oz 121 lb Last Vital Signs Temp Pulse Resp BP Pulse Ox 96.9 F L 89 18 101/57 L 97 04/24/18 09:28 04/24/18 09:28 04/24/18 09:28 04/24/18 09:28 04/24/18 01:00 Active Medications Carbamazepine (Tegretol Oral Suspension -) 300 mg GT DAILY@1400 [facility] Last Admin: 04/23/18 15:09 Dose: 300 mg Carbamazepine (Tegretol Oral Suspension -) 400 mg GT BID@0700,2200 [facility] Last Admin: 04/24/18 07:21 Dose: 400 mg Clobazam (Onfi -) 10 mg GT BID [facility] Last Admin: 04/24/18 11:15 Dose: 10 mg Clobazam (Onfi -) 5 mg GT DAILY [facility] Last Admin: 04/24/18 11:15 Dose: 5 mg Diazepam (Valium -) 10 mg GT PRN PRN PRN Reason: seizure Fluticasone Propionate (Flonase -) 2 spray NS HS [facility] Last Admin: 04/23/18 22:47 Dose: 2 spray Lactated Ringer's (Lactated Ringers Solution) 1,000 ml in 1,000 mls @ 100 mls/ hr IV ASDIR [facility] Last Admin: 04/24/18 07:21 Dose: Not Given Levofloxacin (Levaquin 500 Mg Premixed Ivpb -) 500 mg in 100 mls @ 100 mls/hr IVPB DAILY [facility]; Protocol Last Admin: 04/24/18 11:14 Dose: 100 mls/hr Ipratropium [place] (Atrovent 0.02% Nebulizer -) 1 amp NEB RQID [facility] Last Admin: 04/24/18 08:40 Dose: 1 amp Lorazepam (Ativan -) 1 mg GT ASDIR PRN PRN Reason: seizure Pt's Own Med (Banzel (400mg)) 1 each GT BID [facility] Last Admin: 04/24/18 11:16 Dose: 1 each Silver Sulfadiazine (Silvadene -) 1 applic TP TID [facility] Last Admin: 04/24/18 07:22 Dose: 1 applic Topiramate (Topamax -) 200 mg GT DAILY [facility] Last Admin: 04/24/18 11:17 Dose: 200 mg Topiramate (Topamax -) 400 mg GT HS [facility] Last Admin: 04/23/18 22:48 Dose: 400 mg Zonisamide (Zonisamide) 200 mg GT TID [facility] Last Admin: 04/24/18 07:21 Dose: 200 mg Zonisamide (Zonisamide) 50 mg GT HS [facility] Last Admin: 04/23/18 22:48 Dose: 50 mg GENERAL: Awake, NAD, Nonverbal HEAD: NCAT EYES: PERRL ENT: Ears normal, nares patent, oropharynx clear without exudates, moist mucous membranes. NECK: Supple, No JVD LUNGS: Basilar Rhonchi, no wheeze HEART: RRR, S1 S2 without murmur ABDOMEN: Soft, nontender, nondistended, + bowel sounds, no guarding. G tube in place with clean, dry surrounding dressing, no surrounding erythema EXTREMITIES: 2+ pulses, No peripheral edema NEUROLOGICAL: Unable to assess due to baseline mental status. SKIN: Warm, dry Laboratory Results - last 24 hr 04/23/18 04/23/18 04/24/18 07:00 07:00 07:49 WBC RBC Hgb Hct MCV MCH MCHC RDW Plt Count MPV Absolute Neuts (auto) Neutrophils % Lymphocytes % Monocytes % Eosinophils % Basophils % Nucleated RBC % Sodium 137 Potassium 4.2 Chloride 103 Carbon Dioxide 25 Anion Gap 8 BUN 8 Creatinine < 0.2 L Creat Clearance w eGFR > 60 Random Glucose 94 Calcium 8.1 L Phosphorus 4.8 Magnesium 2.0 Urine Osmolality 264 L Ur Random Sodium 27 L Ur Random Potassium 14.0 L Ur Random Chloride 25 L 04/24/18 07:49 WBC 5.7 RBC 3.82 L Hgb 12.0 Hct 37.2 MCV 97.5 H MCH 31.3 MCHC 32.1 RDW 13.1 Plt Count 218 MPV 7.0 L Absolute Neuts (auto) 4.2 Neutrophils % 73.0 Lymphocytes % 18.4 D Monocytes % 7.4 Eosinophils % 0.9 Basophils % 0.3 Nucleated RBC % 0 Sodium Potassium Chloride Carbon Dioxide Anion Gap BUN Creatinine Creat Clearance w eGFR Random Glucose Calcium Phosphorus Magnesium Urine Osmolality Ur Random Sodium Ur Random Potassium Ur Random Chloride Problem List - Problems (1) Hyponatremia Code(s): E87.1 - HYPO-OSMOLALITY AND HYPONATREMIA (2) Cerebral palsy Code(s): G80.9 - CEREBRAL PALSY, UNSPECIFIED Qualifiers: Cerebral palsy type: unspecified type Qualified Code(s): G80.9 - Cerebral palsy, unspecified (3) Hypoxia Code(s): R09.02 - HYPOXEMIA (4) SOB (shortness of breath) Code(s): R06.02 - SHORTNESS OF BREATH (5) Functional quadriplegia Code(s): R53.2 - FUNCTIONAL QUADRIPLEGIA (6) Scoliosis Code(s): M41.9 - SCOLIOSIS, UNSPECIFIED (7) Seizure Code(s): R56.9 - UNSPECIFIED CONVULSIONS IMP (+) PNEUMOCOCCAL ANTIGEN SUSPECTED MUCUS PLUGGING / BRONCHITIS MR CP H/O SEIZURES KYPHOSCOLIOSIS HYPONATREMIA PLAN O2 INHALED BRONCHODILATORS ASPIRATION PRECAUTIONS LEVAQUIN WITH MONITORING OF QT / SEIZURES DR ZARATE
[2018-04-24] MEDS ORDERED: PT OWN MED DRAWER 7, Y5N ONE ×3 (13:18→23:51)
--- NOTE | 2018-04-24 14:47 | EKG ---
Test Reason : Blood Pressure : / mmHG Vent. Rate : 094 BPM Atrial Rate : 094 BPM P-R Int : 160 ms QRS Dur : 096 ms QT Int : 350 ms P-R-T Axes : 047 126 056 degrees QTc Int : 437 ms NORMAL SINUS RHYTHM RIGHT AXIS DEVIATION POSSIBLE RIGHT VENTRICULAR HYPERTROPHY ABNORMAL ECG WHEN COMPARED WITH ECG OF 22-APR-2018 22:54, INCOMPLETE RIGHT BUNDLE BRANCH BLOCK IS NO LONGER PRESENT Confirmed by EDUARDO DILL, MARISEL ([id number]) on 04/24/2018 2:47:39 PM Referred By: LILI ANDRES Confirmed By:MARISEL CLARK MD
--- NOTE | 2018-04-24 16:12 | PN ---
Physical Exam: SUBJECTIVE: Patient seen and examined this morning at bedside. Patient non verbal at baseline. Unable to perform review of systems. OBJECTIVE: Vital Signs Period Temp Pulse Resp BP Sys/Grossman Pulse Ox Last 24 Hr 96.9 F-99.0 F 83-98 16-88 97-121/07-69 97-98 GENERAL: Awake, NAD, lying comfortably with head of bed elevated, Nonverbal HEAD: NCAT EYES: PERRL ENT: Ears normal, nares patent, oropharynx clear without exudates, moist mucous membranes. NECK: Supple, No JVD LUNGS: Rhonchi at bases, poor inspiratory effort, on 2L NC HEART: RRR, S1 S2 without murmur ABDOMEN: Soft, nontender, nondistended, + bowel sounds, no guarding. G tube in place with clean, dry surrounding dressing, no surrounding erythema EXTREMITIES: 2+ pulses, No peripheral edema NEUROLOGICAL: Unable to assess due to baseline mental status. SKIN: Warm, dry Laboratory Results - last 24 hr 04/24/18 04/24/18 07:49 07:49 WBC 5.7 RBC 3.82 L Hgb 12.0 Hct 37.2 MCV 97.5 H MCH 31.3 MCHC 32.1 RDW 13.1 Plt Count 218 MPV 7.0 L Absolute Neuts (auto) 4.2 Neutrophils % 73.0 Lymphocytes % 18.4 D Monocytes % 7.4 Eosinophils % 0.9 Basophils % 0.3 Nucleated RBC % 0 Sodium 137 Potassium 4.2 Chloride 103 Carbon Dioxide 25 Anion Gap 8 BUN 8 Creatinine < 0.2 L Creat Clearance w eGFR > 60 Random Glucose 94 Calcium 8.1 L Phosphorus 4.8 Magnesium 2.0 Microbiology 04/23/18 10:35 Sputum - Endotracheal Suction W/O Vent Gram Stain - Final 04/23/18 10:35 Sputum - Endotracheal Suction W/O Vent Sputum Culture - Preliminary Pending Organism Pending Organism#2 04/22/18 20:30 Blood - Peripheral Venous Blood Culture - Preliminary NO GROWTH OBTAINED AFTER 24 HOURS, INCUBATION TO CONTINUE FOR 4 DAYS. 04/22/18 20:04 Blood - Peripheral Venous Blood Culture - Preliminary NO GROWTH OBTAINED AFTER 24 HOURS, INCUBATION TO CONTINUE FOR 4 DAYS. 04/23/18 07:00 Urine For Antigen Detection Legionella Antigen - Final 04/23/18 07:00 Urine For Antigen Detection Streptococcus pneumoniae Antigen (M - Final 04/22/18 20:46 Nasopharyngeal Swab Influenza Types A,B Antigen - Final 04/22/18 20:46 Nasopharyngeal Swab - Final Active Medications Carbamazepine (Tegretol Oral Suspension -) 300 mg GT DAILY@1400 [facility] Last Admin: 04/24/18 13:23 Dose: 300 mg Carbamazepine (Tegretol Oral Suspension -) 400 mg GT BID@0700,2200 [facility] Last Admin: 04/24/18 07:21 Dose: 400 mg Clobazam (Onfi -) 10 mg GT BID [facility] Last Admin: 04/24/18 11:15 Dose: 10 mg Clobazam (Onfi -) 5 mg GT DAILY [facility] Last Admin: 04/24/18 11:15 Dose: 5 mg Diazepam (Valium -) 10 mg GT PRN PRN PRN Reason: seizure Fluticasone Propionate (Flonase -) 2 spray NS [facility] Last Admin: 04/23/18 22:47 Dose: 2 spray Lactated Ringer's (Lactated Ringers Solution) 1,000 ml in 1,000 mls @ 100 mls/ hr IV ASDIR [facility] Last Admin: 04/24/18 07:21 Dose: Not Given Levofloxacin (Levaquin 500 Mg Premixed Ivpb -) 500 mg in 100 mls @ 100 mls/hr IVPB DAILY [facility]; Protocol Last Admin: 04/24/18 11:14 Dose: 100 mls/hr Ipratropium [place] (Atrovent 0.02% Nebulizer -) 1 amp NEB RQID [facility] Last Admin: 04/24/18 13:07 Dose: 1 amp Lorazepam (Ativan -) 1 mg GT ASDIR PRN PRN Reason: seizure Pt's Own Med (Banzel (400mg)) 1 each GT BID [facility] Last Admin: 04/24/18 11:16 Dose: 1 each Silver Sulfadiazine (Silvadene -) 1 applic TP TID [facility] Last Admin: 04/24/18 13:22 Dose: 1 applic Topiramate (Topamax -) 200 mg GT DAILY [facility] Last Admin: 04/24/18 11:17 Dose: 200 mg Topiramate (Topamax -) 400 mg GT HS [facility] Last Admin: 04/23/18 22:48 Dose: 400 mg Zonisamide (Zonisamide) 200 mg GT TID [facility] Last Admin: 04/24/18 13:23 Dose: 200 mg Zonisamide (Zonisamide) 50 mg GT HS [facility] Last Admin: 04/23/18 22:48 Dose: 50 mg IMAGING: -CXR (04/22): Extensive thoracolumbar scoliosis with metallic hardware in place. The right diaphragm is elevated. Normal aeration of the right lung, without pulmonary infiltrates, atelectasis, pneumothorax or pleural effusion. No evidence of vascular congestive changes. Significant portion of the left lung is obscured by the cardiac silhouette. Metallic device projecting over the left midlung zone. No airspace opacities are seen in the left upper lung zone, left costophrenic angle. Left retrocardiac atelectasis cannot be entirely excluded. -CXR (04/23): No significant change since 04/22/2018 study. -EKG (04/23): SINUS TACHYCARDIA, LEFT ATRIAL ENLARGEMENT, RIGHT AXIS DEVIATION, INCOMPLETE RIGHT BUNDLE BRANCH BLOCK, RIGHT VENTRICULAR HYPERTROPHY, VR 112, QTc 461 -EKG (04/24): NORMAL SINUS RHYTHM, RIGHT AXIS DEVIATION, POSSIBLE RIGHT VENTRICULAR HYPERTROPHY, VR 94, QTc 437 ASSESSMENT/PLAN: 28 y/o M with PMHx of MR, cerebral palsy, epilepsy, recurrent aspiration pneumonia, scoliosis presents from [facility] with hypoxia and is found to have hyponatremia #Pneumococcal Pneumonia -Positive Step Pneumo Urine Antigen -Started on Levaquin 500mg Daily [given PCN and Cephalosporines allergy] ( Started on 04/23) -Daily monitoring QTc prolongation and seizures -Daily EKG ordered #Hyponatremia -127 on admission; Recurrent episodes of Hyponatremia during prior admission -Can consider fluid intake, medication use -[place] catheter placed, urine osmolarity, electrolyes ordered -Serum osmolarity 277 -Continue IV LR @ 100 mls/hr -Continue to monitor -Determine proper feeds/fluid though NG tube #Hypoxia -Likely due to to mucous plugging vs recurrent aspiration pneumonia vs pneumonitis -No WBC, no fever -Given Aztreonam, Levaquin, and Vanc in ED; will monitor off ABx -CXR (04/22): Without pulmonary infiltrates, atelectasis, pneumothorax or pleural effusion. No evidence of vascular congestive changes. -CXR (04/23): No significant change since 04/22/2018 study. -Not on Home O2 -Sputum cx order; hx of Pseudomonas in sputum -Flu swab negative -Chest PT #Hx of Epilepsy -Monitor closely for seizure activity and possibly aspiration, Continue home meds -Carbamazepine 400 mg AM, 300 mg noon, 400 mg HS GT QD -Clozabam 10 mg GT BID -Ativan 1 mg GT PRN -Topiramate 300 mg GT QD -Topiramate 200 mg GT AM, HS -Zonisamide 200 mg GT TID -Zonisamide 50 mg GT HS #FEN -IV LR @ 100 mls/hr -Hyponatremia -Threat Analyst consulted during previous visit: Tube Feed Osmolite 1.2 goal rate 55ml/hr x 24 hours with 25 ml water flush each hour of feeding #PPx -DVT: SCDs Dispo: Obs med-surg Visit type - Emergency Visit Emergency Visit: Yes ED Registration Date: 04/24/18 Care time: The patient presented to the Emergency Department on the above date and was hospitalized for further evaluation of their emergent condition. - New Patient This patient is new to me today: No - Critical Care Critical Care patient: No - Discharge Referral Referred to [facility] Med [facility] No
--- NOTE | 2018-04-24 16:28 | PN ---
Teaching Attending Note Name of Resident: Cheyanne Chaidez ATTENDING PHYSICIAN STATEMENT I saw and evaluated the patient. I reviewed the resident's note and discussed the case with the resident. I agree with the resident's findings and plan as documented. SUBJECTIVE: no events last night OBJECTIVE: NAD, calm , rash on face ( pustules ) CV: RRR Lungs: clear lungs posteriorly . course breath sounds anteriorly Ext: no edema ASSESSMENT AND PLAN: 28 y/o man with h/o seizure disorder, cerebral palsy, and mental retardation , and recurrent aspiration PNA, who was sent from [place] due to increased cough and secretions 1- Streptococcal PNA: Levaquin day 06/28. monitor for seizures and Qtc repeat EKG IVF O2 supplementation as needed sputum cx with pending organisms. follow 2- H/o Seizure disorder. At base line , he has 1-2 seizures a day - cont home meds 3- hyponatremia : resolved. Legionella Ag neg . dispo : [facility] . if contto be stable, can dc tomorrow on po abx
[2018-04-24] MEDS: FLUTICASONE PROP 0.05% 16 GM NASAL SPRAY NS SCH (22:17)
[2018-04-24] MEDS: TOPIRAMATE 200 MG TABLET (FP) GT SCH (22:21)
[2018-04-25] MEDS ORDERED: PT OWN MED DRAWER 7, Y5N ONE ×2 (06:33→14:00)
[2018-04-25] MEDS: LACTATED RINGERS SOLUTION 1,000 ML/1,000 ML INFUS.BAG IV SCH ×2 (06:59→11:54)
[2018-04-25] MEDS: ZONISAMIDE 100 MG/10 ML ORAL SUSPENSION GT SCH ×4 (07:00→22:52)
[2018-04-25] MEDS: SILVER SULFADIAZINE 1% TOP CREAM 400 GM JAR TP SCH ×3 (07:00→22:51)
[2018-04-25] MEDS: carBAMazepine 200 MG/10 ML UNIT-DOSE CUP GT SCH ×3 (07:01→22:52)
[2018-04-25] MEDS: IPRATROPIUM BR 0.02% 0.5 MG/2.5 ML VIAL.NEB. NEB SCH ×4 (08:13→21:08)
[2018-04-25] MEDS: cloBAZam 10 MG TABLET GT SCH ×3 (10:05→22:56)
[2018-04-25] MEDS: TOPIRAMATE 100 MG TABLET GT SCH (10:05)
[2018-04-25] MEDS: BANZEL 400 MG GT SCH ×2 (10:10→22:53)
--- NOTE | 2018-04-25 10:40 | EKG ---
Test Reason : Blood Pressure : / mmHG Vent. Rate : 092 BPM Atrial Rate : 092 BPM P-R Int : 160 ms QRS Dur : 098 ms QT Int : 344 ms P-R-T Axes : 034 131 053 degrees QTc Int : 425 ms NORMAL SINUS RHYTHM RIGHT AXIS DEVIATION POSSIBLE RIGHT VENTRICULAR HYPERTROPHY ABNORMAL ECG WHEN COMPARED WITH ECG OF 24-APR-2018 09:05, NO SIGNIFICANT CHANGE WAS FOUND Confirmed by FREDDY DILL, ALFRED ([id number]) on 04/25/2018 10:39:59 AM Referred By: RAJI MÉNDEZ DR Confirmed By:ALFRED HAYES MD
--- NOTE | 2018-04-25 14:21 | PN ---
Progress Note (short form) - Note Progress Note: PULMONARY Noted (+) Pneumococcal antigen GENERAL: Awake, NAD, Nonverbal HEAD: NCAT EYES: PERRL ENT: Ears normal, nares patent, oropharynx clear without exudates, moist mucous membranes. NECK: Supple, No JVD LUNGS: Basilar Rhonchi, no wheeze HEART: RRR, S1 S2 without murmur ABDOMEN: Soft, nontender, nondistended, + bowel sounds, no guarding. G tube in place with clean, dry surrounding dressing, no surrounding erythema EXTREMITIES: 2+ pulses, No peripheral edema NEUROLOGICAL: Unable to assess due to baseline mental status. SKIN: Warm, dry LABS NOTED (1) Hyponatremia Code(s): E87.1 - HYPO-OSMOLALITY AND HYPONATREMIA (2) Cerebral palsy Code(s): G80.9 - CEREBRAL PALSY, UNSPECIFIED Qualifiers: Cerebral palsy type: unspecified type Qualified Code(s): G80.9 - Cerebral palsy, unspecified (3) Hypoxia Code(s): R09.02 - HYPOXEMIA (4) SOB (shortness of breath) Code(s): R06.02 - SHORTNESS OF BREATH (5) Functional quadriplegia Code(s): R53.2 - FUNCTIONAL QUADRIPLEGIA (6) Scoliosis Code(s): M41.9 - SCOLIOSIS, UNSPECIFIED (7) Seizure Code(s): R56.9 - UNSPECIFIED CONVULSIONS IMP (+) PNEUMOCOCCAL ANTIGEN SUSPECTED MUCUS PLUGGING / BRONCHITIS CP H/O SEIZURES KYPHOSCOLIOSIS HYPONATREMIA PLAN O2 INHALED BRONCHODILATORS ASPIRATION PRECAUTIONS ANTIBIOTICS Spencer BENSON MD
--- NOTE | 2018-04-25 17:42 | CON.ID ---
Consult Consult Specialty:: infectious disease Referred by:: hospitalist Reason for Consultation:: +pneumococcal antigen - History of Present Illness Chief Complaint: chest congestion, transient hypoxia that resolved with suctioning History of Present Illness: 28 year old man from [facility] admittd with congestion and transient hypoxia that resolved with chest PT and removal mucous plug recent admission 04/02 to 04/09 for asp pneumonia, uti, trated with vanco/ azactam for one week recent viral panel at the center 04/17 negative for viral pathogens pneumococcal urinary antigen positive he received vancomycin azactam and levaquin in Ed now day 3 levaquin allergic to penicillin/cephalsoporins- nature of allergy unknown currently on RA resting comfortably - History Source History Provided By: Medical Record Limitations to Obtaining History: Clinical Condition - Past Medical History [employer]ATE[employer]: Yes: Seizure, Other (cerebral palsy, intellectual disability) Pulmonary: Yes: Pneumonia Renal/: Yes: UTI (recent enterococcal uti- 03/2018) - Past Surgical History Additional Surgical History: scoliosis repair. feeding tube - Alcohol/Substance Use Hx Alcohol Use: No - Smoking History Smoking history: Never smoked Have you smoked in the past 12 months: No - Social History Usual Living Arrangement: Half-Way ADL: Support Services Place of : [facility] History of Recent Travel: No Home Medications - Allergies Allergies/Adverse Reactions: Allergies Allergy/AdvReac Type Severity Reaction Status Date / Time albuterol Allergy Verified 02/13/18 22:09 Cephalosporins Allergy Verified 02/13/18 22:09 latex Allergy Verified 02/13/18 22:09 Penicillins Allergy Verified 02/13/18 22:09 shrimp Allergy Verified 02/13/18 22:09 wool Allergy Verified 02/13/18 22:09 - Home Medications Home Medications: Ambulatory Orders Clobazam [Onfi -] 10 mg GT 11/23/17 Diazepam [Diastat] 10 mg RC ONCE PRN 11/23/17 Fluticasone Prop 0.05% Nasal [Flonase -] 2 spray NS 11/23/17 Lorazepam [Ativan] 1 mg GT ASDIR PRN 11/23/17 Polyethylene Glycol 3350 [Miralax 119 gm Btl -] 17 gm GT ASDIR 11/23/17 Rufinamide [Banzel] 1,600 mg GT BID 11/23/17 Zonisamide [Zonegran -] 50 mg GT HS 11/23/17 Zonisamide [Zonegran] 200 mg GT TID 11/23/17 Topiramate [Topamax] 300 mg GT DAILY 02/14/18 Carbamazepine 300 mg GT DAILY 04/02/18 Ipratropium 0.02% Nebulizer [Atrovent 0.02% Nebulizer -] 1 amp IH QID PRN Topiramate [Qudexy Xr] 400 mg GT HS 04/02/18 Carbamazepine 400 mg GT AM 04/03/18 Carbamazepine 400 mg GT HS 04/03/18 Silver Sulfadiazine 1% Top Cr 1 appful TP TID 04/22/18 Clobazam [Onfi -] 5 mg GT DAILY 04/23/18 EPINEPHrine (EPI-PEN 0.3MG) [Epipen 0.3MG -] 0.3 mg IM ASDIR 04/23/18 Hydrocolloid Dressing [Duoderm Cgf] 1 applic TP DAILY PRN 04/23/18 Family Disease History - Family Disease History Family History: Unable to Obtain Review of Systems - Review of Systems Constitutional: denies: Fever Physical Exam Vital Signs: Vital Signs Temperature 98.1 F 04/25/18 14:37 Pulse Rate 97 H 04/25/18 14:37 Respiratory Rate 18 04/25/18 14:37 Blood Pressure 106/69 04/25/18 14:37 O2 Sat by Pulse Oximetry (%) 100 04/25/18 09:00 Constitutional: Yes: No Distress, Calm HENT: Yes: Atraumatic, Normocephalic Neck: Yes: Supple Cardiovascular: Yes: Regular Rate and Rhythm Respiratory: Yes: Regular, CTA Bilaterally, Diminished (at bases) Gastrointestinal: Yes: Normal Bowel Sounds, Soft, Other (+gt) ...Rectal Exam: Yes: Deferred Musculoskeletal: Yes: WNL Extremities: Yes: WNL, Other (bilateral club feet) Edema: No Neurological: Yes: Alert, Other (does not follow commands) Labs: CBC, BMP 04/24/18 07:49 04/24/18 07:49 Microbiology 04/23/18 10:35 Sputum - Endotracheal Suction W/O Vent Gram Stain - Final 04/23/18 10:35 Sputum - Endotracheal Suction W/O Vent Sputum Culture - Preliminary Staphylococcus Latex Coag Pos Pending Organism#2 04/22/18 20:30 Blood - Peripheral Venous Blood Culture - Preliminary NO GROWTH OBTAINED AFTER 48 HOURS, INCUBATION TO CONTINUE FOR 3 DAYS. 04/22/18 20:04 Blood - Peripheral Venous Blood Culture - Preliminary NO GROWTH OBTAINED AFTER 48 HOURS, INCUBATION TO CONTINUE FOR 3 DAYS. 04/23/18 07:00 Urine For Antigen Detection Legionella Antigen - Final 04/23/18 07:00 Urine For Antigen Detection Streptococcus pneumoniae Antigen (M - Final 04/22/18 20:46 Nasopharyngeal Swab Influenza Types A,B Antigen - Final 04/22/18 20:46 Nasopharyngeal Swab - Final Imaging - Results Chest X-ray: Report Reviewed, Image Reviewed (no clear infiltrate, rotated, scoliosis hardware) Problem List - Problems (1) Pneumococcal pneumonia Code(s): J13 - PNEUMONIA DUE TO STREPTOCOCCUS PNEUMONIAE (2) Cerebral palsy Code(s): G80.9 - CEREBRAL PALSY, UNSPECIFIED Qualifiers: Cerebral palsy type: unspecified type Qualified Code(s): G80.9 - Cerebral palsy, unspecified (3) Allergy to multiple antibiotics Code(s): Z88.1 - ALLERGY STATUS TO OTHER ANTIBIOTIC AGENTS STATUS Assessment/Plan day 3 levgingeruin, would complete 7 days clinically improved multiple antibiotics allergies noted
--- NOTE | 2018-04-25 19:05 | PN ---
Teaching Attending Note Name of Resident: Cheyanne Chaidez ATTENDING PHYSICIAN STATEMENT I saw and evaluated the patient. I reviewed the resident's note and discussed the case with the resident. I agree with the resident's findings and plan as documented. SUBJECTIVE: No events over night OBJECTIVE: NAD, calm , rash on face ( pustules ) CV: RRR Lungs: clear lungs Ext: no edema ASSESSMENT AND PLAN: 28 y/o man with h/o seizure disorder, cerebral palsy, and mental retardation , and recurrent aspiration PNA, who was sent from [place] due to increased cough and secretions 1- Streptococcal PNA: Levaquin day 07/31. monitor for seizures and Qtc ( 426) dc IVF O2 supplementation as needed sputum cx with 2 organisms , likely colonization 2- H/o Seizure disorder. At base line, he has 1-2 seizures a day - cont home meds 3- hyponatremia : resolved. Legionella Ag neg. Dispo: d/w Dr. Melendez. dc tomorrow
--- NOTE | 2018-04-25 19:59 | PN ---
Physical Exam: SUBJECTIVE: Patient seen and examined this morning at bedside. Patient non verbal at baseline. Unable to perform review of systems. OBJECTIVE: Vital Signs Period Temp Pulse Resp BP Sys/Grossman Pulse Ox Last 24 Hr 97.3 F-99.0 F 94-100 16-20 89-114/51-69 95-100 GENERAL: Awake, NAD, lying comfortably with head of bed elevated, Nonverbal HEAD: NCAT EYES: PERRL NECK: Supple, No JVD LUNGS: Rhonchi at bases, poor inspiratory effort HEART: RRR, S1 S2 without murmur ABDOMEN: Soft, nontender, nondistended, + bowel sounds, no guarding. G tube in place with clean, dry surrounding dressing, no surrounding erythema EXTREMITIES: 2+ pulses, No peripheral edema NEUROLOGICAL: Unable to assess due to baseline mental status. SKIN: Warm, dry Microbiology 04/23/18 10:35 Sputum - Endotracheal Suction W/O Vent Gram Stain - Final 04/23/18 10:35 Sputum - Endotracheal Suction W/O Vent Sputum Culture - Preliminary Staphylococcus Latex Coag Pos Pending Organism#2 04/22/18 20:30 Blood - Peripheral Venous Blood Culture - Preliminary NO GROWTH OBTAINED AFTER 48 HOURS, INCUBATION TO CONTINUE FOR 3 DAYS. 04/22/18 20:04 Blood - Peripheral Venous Blood Culture - Preliminary NO GROWTH OBTAINED AFTER 48 HOURS, INCUBATION TO CONTINUE FOR 3 DAYS. 04/23/18 07:00 Urine For Antigen Detection Legionella Antigen - Final 04/23/18 07:00 Urine For Antigen Detection Streptococcus pneumoniae Antigen (M - Final 04/22/18 20:46 Nasopharyngeal Swab Influenza Types A,B Antigen - Final 04/22/18 20:46 Nasopharyngeal Swab - Final Active Medications Carbamazepine (Tegretol Oral Suspension -) 300 mg GT DAILY@1400 [facility] Last Admin: 04/25/18 14:03 Dose: 300 mg Carbamazepine (Tegretol Oral Suspension -) 400 mg GT BID@0700,2200 [facility] Last Admin: 04/25/18 07:01 Dose: 400 mg Clobazam (Onfi -) 10 mg GT BID [facility] Last Admin: 04/25/18 10:05 Dose: 10 mg Clobazam (Onfi -) 5 mg GT DAILY [facility] Last Admin: 04/25/18 10:05 Dose: 5 mg Diazepam (Valium -) 10 mg GT PRN PRN PRN Reason: seizure Fluticasone Propionate (Flonase -) 2 spray NS HS [facility] Last Admin: 04/24/18 22:17 Dose: 2 spray Levofloxacin (Levaquin 500 Mg Premixed Ivpb -) 500 mg in 100 mls @ 100 mls/hr IVPB DAILY [facility]; Protocol Last Admin: 04/25/18 10:04 Dose: 100 mls/hr Ipratropium [place] (Atrovent 0.02% Nebulizer -) 1 amp NEB RQID [facility] Last Admin: 04/25/18 16:09 Dose: 1 amp Lorazepam (Ativan -) 1 mg GT ASDIR PRN PRN Reason: seizure Pt's Own Med (Banzel (400mg)) 1 each GT BID [facility] Last Admin: 04/25/18 10:10 Dose: 1 each Silver Sulfadiazine (Silvadene -) 1 applic TP TID [facility] Last Admin: 04/25/18 14:10 Dose: 1 applic Topiramate (Topamax -) 200 mg GT DAILY [facility] Last Admin: 04/25/18 10:05 Dose: 200 mg Topiramate (Topamax -) 400 mg GT HS [facility] Last Admin: 04/24/18 22:21 Dose: 400 mg Zonisamide (Zonisamide) 200 mg GT TID [facility] Last Admin: 04/25/18 14:03 Dose: 200 mg Zonisamide (Zonisamide) 50 mg GT HS [facility] Last Admin: 04/24/18 22:22 Dose: 50 mg IMAGING: -CXR (04/22): Extensive thoracolumbar scoliosis with metallic hardware in place. The right diaphragm is elevated. Normal aeration of the right lung, without pulmonary infiltrates, atelectasis, pneumothorax or pleural effusion. No evidence of vascular congestive changes. Significant portion of the left lung is obscured by the cardiac silhouette. Metallic device projecting over the left midlung zone. No airspace opacities are seen in the left upper lung zone, left costophrenic angle. Left retrocardiac atelectasis cannot be entirely excluded. -CXR (04/23): No significant change since 04/22/2018 study. -EKG (04/23): SINUS TACHYCARDIA, LEFT ATRIAL ENLARGEMENT, RIGHT AXIS DEVIATION, INCOMPLETE RIGHT BUNDLE BRANCH BLOCK, RIGHT VENTRICULAR HYPERTROPHY, VR 112, QTc 461 -EKG (04/24): NORMAL SINUS RHYTHM, RIGHT AXIS DEVIATION, POSSIBLE RIGHT VENTRICULAR HYPERTROPHY, VR 94, QTc 437 -EKG (04/25): NORMAL SINUS RHYTHM, RIGHT AXIS DEVIATION, POSSIBLE RIGHT VENTRICULAR HYPERTROPHY, VR 92, QTc 425 ASSESSMENT/PLAN: 28 y/o M with PMHx of MR, cerebral palsy, epilepsy, recurrent aspiration pneumonia, scoliosis presents from [facility] [place] with hypoxia and is found to have hyponatremia #Pneumococcal Pneumonia -Positive Step Pneumo Urine Antigen -Levaquin 500mg Daily [given PCN and Cephalosporines allergy] (Started on 04/23) -Daily monitoring QTc prolongation and seizures -ID (Dr. Phipps) consulted, Appreciate Rec's, day 3 levaquin, would complete 7 days #Hyponatremia -127 on admission; Recurrent episodes of Hyponatremia during prior admission -Can consider fluid intake, medication use -[place] catheter placed, urine osmolarity, electrolyes ordered -Serum osmolarity 277 -IVF D/C'ed -Continue to monitor -Determine proper feeds/fluid though NG tube #Hypoxia -Likely due to to mucous plugging vs recurrent aspiration pneumonia vs pneumonitis -No WBC, no fever -Given Aztreonam, Levaquin, and Vanc in ED; will monitor off ABx -CXR (04/22): Without pulmonary infiltrates, atelectasis, pneumothorax or pleural effusion. No evidence of vascular congestive changes. -CXR (04/23): No significant change since 04/22/2018 study. -Not on Home O2 -Sputum cx Pending; hx of Pseudomonas in sputum -Flu swab negative -Chest PT #Hx of Epilepsy -Monitor closely for seizure activity and possibly aspiration, Continue home meds -Carbamazepine 400 mg AM, 300 mg noon, 400 mg HS GT QD -Clozabam 10 mg GT BID -Ativan 1 mg GT PRN -Topiramate 300 mg GT QD -Topiramate 200 mg GT AM, HS -Zonisamide 200 mg GT TID -Zonisamide 50 mg GT HS #FEN -IVF D/C'ed -Hyponatremia -Food Services Director consulted during previous visit: Tube Feed Osmolite 1.2 goal rate 55ml/hr x 24 hours with 25 ml water flush each hour of feeding #PPx -DVT: SCDs Dispo: D/C tmrw back to [place], Spoke with Dr. Melendez Visit type - Emergency Visit Emergency Visit: Yes ED Registration Date: 04/24/18 Care time: The patient presented to the Emergency Department on the above date and was hospitalized for further evaluation of their emergent condition. - New Patient This patient is new to me today: No - Critical Care Critical Care patient: No - Discharge Referral Referred to [facility] Med P.C.: No
[2018-04-25] MEDS: FLUTICASONE PROP 0.05% 16 GM NASAL SPRAY NS SCH (22:51)
[2018-04-25] MEDS: TOPIRAMATE 200 MG TABLET (FP) GT SCH (22:54)
[2018-04-26] MEDS: SILVER SULFADIAZINE 1% TOP CREAM 400 GM JAR TP SCH (07:11)
[2018-04-26] MEDS: carBAMazepine 200 MG/10 ML UNIT-DOSE CUP GT SCH (07:12)
[2018-04-26] MEDS: ZONISAMIDE 100 MG/10 ML ORAL SUSPENSION GT SCH (07:12)
[2018-04-26] MEDS: IPRATROPIUM BR 0.02% 0.5 MG/2.5 ML VIAL.NEB. NEB SCH ×2 (08:34→11:44)
[2018-04-26] MEDS ORDERED: PT OWN MED DRAWER 7, Y5N ONE (10:05)
[2018-04-26] MEDS: cloBAZam 10 MG TABLET GT SCH ×2 (10:11)
[2018-04-26] MEDS: BANZEL 400 MG GT SCH (10:13)
[2018-04-26] MEDS: TOPIRAMATE 100 MG TABLET GT SCH (10:14)
[2018-04-26 11:31] VITALS: BP 118/69; PULSE 111; TEMP 98.3
--- NOTE | 2018-04-26 12:12 | PN ---
Teaching Attending Note Name of Resident: Cheyanne Chaidez ATTENDING PHYSICIAN STATEMENT I saw and evaluated the patient. I reviewed the resident's note and discussed the case with the resident. I agree with the resident's findings and plan as documented. SUBJECTIVE: no events over night . OBJECTIVE: NAD, calm CV: RRR Lungs: course rales b/l anteriorly Ext: no edema ASSESSMENT AND PLAN: 28 y/o man with h/o seizure disorder, cerebral palsy, and mental retardation , and recurrent aspiration PNA, who was sent from [place] due to increased cough and secretions 1- Streptococcal PNA: Levaquin day 3. EKG reviewed today. O2 supplementation as needed sputum cx with 2 organisms , likely colonization. d/wID bed head elevation , aspiration precautions 2- H/o Seizure disorder. At base line, he has 1-2 seizures a day - cont home meds 3- hyponatremia : resolved. DC to [place]
--- NOTE | 2018-04-26 12:34 | EKG ---
Test Reason : Blood Pressure : / mmHG Vent. Rate : 100 BPM Atrial Rate : 100 BPM P-R Int : 170 ms QRS Dur : 094 ms QT Int : 342 ms P-R-T Axes : 039 126 055 degrees QTc Int : 441 ms NORMAL SINUS RHYTHM POSSIBLE LEFT ATRIAL ENLARGEMENT RIGHT AXIS DEVIATION POSSIBLE RIGHT VENTRICULAR HYPERTROPHY ABNORMAL ECG WHEN COMPARED WITH ECG OF 25-APR-2018 09:51, NO SIGNIFICANT CHANGE WAS FOUND Confirmed by ALFRED HAYES MD ([id number]) on 04/26/2018 12:33:34 PM Referred By: Naomi GAVIN Confirmed By:ALFRED HAYES MD
--- NOTE | 2018-04-26 13:54 | PN ---
Progress Note (short form) - Note Progress Note: PULMONARY GENERAL: Awake, NAD, Nonverbal HEAD: NCAT EYES: PERRL ENT: Ears normal, nares patent, oropharynx clear without exudates, moist mucous membranes. NECK: Supple, No JVD LUNGS: Basilar Rhonchi, no wheeze HEART: RRR, S1 S2 without murmur ABDOMEN: Soft, nontender, nondistended, + bowel sounds, no guarding. G tube in place with clean, dry surrounding dressing, no surrounding erythema EXTREMITIES: 2+ pulses, No peripheral edema NEUROLOGICAL: Unable to assess due to baseline mental status. SKIN: Warm, dry LABS NOTED (1) Hyponatremia Code(s): E87.1 - HYPO-OSMOLALITY AND HYPONATREMIA (2) Cerebral palsy Code(s): G80.9 - CEREBRAL PALSY, UNSPECIFIED Qualifiers: Cerebral palsy type: unspecified type Qualified Code(s): G80.9 - Cerebral palsy, unspecified (3) Hypoxia Code(s): R09.02 - HYPOXEMIA (4) SOB (shortness of breath) Code(s): R06.02 - SHORTNESS OF BREATH (5) Functional quadriplegia Code(s): R53.2 - FUNCTIONAL QUADRIPLEGIA (6) Scoliosis Code(s): M41.9 - SCOLIOSIS, UNSPECIFIED (7) Seizure Code(s): R56.9 - UNSPECIFIED CONVULSIONS IMP (+) PNEUMOCOCCAL ANTIGEN SUSPECTED MUCUS PLUGGING / BRONCHITIS CP H/O SEIZURES KYPHOSCOLIOSIS HYPONATREMIA PLAN O2 INHALED BRONCHODILATORS ASPIRATION PRECAUTIONS ANTIBIOTICS PER PRIMARY TEAM NO OBJECTION TO TRANSFER PLANNED Spencer BENSON MD
--- NOTE | 2018-04-26 17:10 | DS ---
Physical Exam: SUBJECTIVE: Patient seen and examined at bedside. No acute events. Pt nonverbal. OBJECTIVE: Vital Signs Period Temp Pulse Resp BP Sys/Grossman Pulse Ox Last 24 Hr 97.2 F-99.0 F 86-111 16-20 99-118/63-71 98-98 PHYSICAL EXAM limited exam, pt nonverbal Gen: NAD, sleeping, contracted from chronic conditions HEENT: NCAT, EOMI Cardio: rrr, s1s2, no mrg. Pulm: coarse breath sounds diffusely Abd: g-tube in place, no erythema Ext: chronically contracted limbs Ambulatory Orders Clobazam [Onfi -] 10 mg GT HS 11/23/17 Diazepam [Diastat] 10 mg RC ONCE PRN 11/23/17 Fluticasone Prop 0.05% Nasal [Flonase -] 2 spray NS HS 11/23/17 Lorazepam [Ativan] 1 mg GT ASDIR PRN 11/23/17 Polyethylene Glycol 3350 [Miralax 119 gm Btl -] 17 gm GT ASDIR 11/23/17 Rufinamide [Banzel] 1,600 mg GT BID 11/23/17 Zonisamide [Zonegran -] 50 mg GT HS 11/23/17 Zonisamide [Zonegran] 200 mg GT TID 11/23/17 Topiramate [Topamax] 300 mg GT DAILY 02/14/18 Carbamazepine 300 mg GT DAILY 04/02/18 Ipratropium 0.02% Nebulizer [Atrovent 0.02% Nebulizer -] 1 amp IH QID PRN Topiramate [Qudexy Xr] 400 mg GT HS 04/02/18 Carbamazepine 400 mg GT AM 04/03/18 Carbamazepine 400 mg GT HS 04/03/18 Silver Sulfadiazine 1% Top Cr 1 appful TP TID 04/22/18 Clobazam [Onfi -] 5 mg GT DAILY 04/23/18 EPINEPHrine (EPI-PEN 0.3MG) [Epipen 0.3MG -] 0.3 mg IM ASDIR 04/23/18 Hydrocolloid Dressing [Duoderm Cgf] 1 applic TP DAILY PRN 04/23/18 Levofloxacin [Levaquin] 500 mg PO DAILY #4 tablet 04/26/18 HOSPITAL COURSE: Date of Admission:04/24/18 Date of Discharge: 04/26/18 Pt is a 28 y/o M with extensive PMH CP, epillepsy, MR, scholiosis, frequent aspirations, who was sent from [facility] because of hypoxia. Pt was found to have Strep pneumo Ag pos. He was treated for PNA with Levaquin. Per [facility] staff, pt intermittently receives O2 at their facility on a regular basis. Reportedly, he occasionally drops his O2 sat, has oxygen placed, and sats improve. Pt was continued on home meds for his chronic conditions. Pt stable for D/C. Case d/w Dr. Melendez at [facility] Minutes to complete discharge: 45 Discharge Summary Reason For Visit: RESPIRATORY DISTRESS Condition: Stable - Instructions Diet, Activity, Other Instructions: You were in the hospital because of a lung infection. You are being sent home with Levaquin. Take 500 mg of Levaquin by mouth daily for 4 more days. You need to follow up with the stapling machine operator, Dr. Church. You need to follow up with the infectious diseases specialist, Dr. Benoit Please continue to implement aspiration percautions including keeping the head of the bed elevated. Continue taking Lorazepam, Clozabam, Carbamazepine, Banzel, Zonisamide, and Topiramate for epilepsy, cerebral palsy. If you develop new symptoms like cough, fever, shortness of breath, please call your doctor or return to the emergency department. Please elevate the head of the bed during meals and for a minimum of 2 hours following meals. Referrals: Richard Church MD [Staff Physician] - 1 Week Sona Phipps MD [Staff Physician] - 1 Week Disposition: HOME - Home Medications Comprehensive Discharge Medication List: Ambulatory Orders Clobazam [Onfi -] 10 mg GT HS 11/23/17 Diazepam [Diastat] 10 mg RC ONCE PRN 11/23/17 Fluticasone Prop 0.05% Nasal [Flonase -] 2 spray NS HS 11/23/17 Lorazepam [Ativan] 1 mg GT ASDIR PRN 11/23/17 Polyethylene Glycol 3350 [Miralax 119 gm Btl -] 17 gm GT ASDIR 11/23/17 Rufinamide [Banzel] 1,600 mg GT BID 11/23/17 Zonisamide [Zonegran -] 50 mg GT HS 11/23/17 Zonisamide [Zonegran] 200 mg GT TID 11/23/17 Topiramate [Topamax] 300 mg GT DAILY 02/14/18 Carbamazepine 300 mg GT DAILY 04/02/18 Ipratropium 0.02% Nebulizer [Atrovent 0.02% Nebulizer -] 1 amp IH QID PRN Topiramate [Qudexy Xr] 400 mg GT HS 04/02/18 Carbamazepine 400 mg GT AM 04/03/18 Carbamazepine 400 mg GT HS 04/03/18 Silver Sulfadiazine 1% Top Cr 1 appful TP TID 04/22/18 Clobazam [Onfi -] 5 mg GT DAILY 04/23/18 EPINEPHrine (EPI-PEN 0.3MG) [Epipen 0.3MG -] 0.3 mg IM ASDIR 04/23/18 Hydrocolloid Dressing [Duoderm Cgf] 1 applic TP DAILY PRN 04/23/18 Levofloxacin [Levaquin] 500 mg PO DAILY #4 tablet 04/26/18 This patient is new to me today: No Emergency Visit: No Critical Care patient: No - Discharge Referral Referred to [facility] No
== END 2018-04-26 14:03 | disposition home or self-care (01) | DRG 193 ==
LOC: JER 19:11 → INTOOBSV 22:29 → JERBED 22:29 → UNDOADMOB 22:29 → JERBED 04-23 00:35 → J5S 04-23 02:03 → OBSVTOIN 04-24 15:22
PROVIDERS: ADMIT Internal Medicine; ATTEND Internal Medicine
DX: J13 Pneumonia due to Streptococcus pneumoniae (principal); R53.2 Functional quadriplegia; E87.1 Hypo-osmolality and hyponatremia; M41.9 Scoliosis, unspecified; G80.9 Cerebral palsy, unspecified; G40.909 Epilepsy, unspecified, not intractable, without status epilepticus; E86.0 Dehydration; T17.990A Other foreign object in respiratory tract, part unspecified in causing asphyxiation, initial encounter; F79 Unspecified intellectual disabilities
CPT/HCPCS: 36415; 71045-TC-FY; 80048; 80053; 82436; 82550; 82803; 83605; 83735; 83930; 83935; 84100; 84133; 84300; 84484; 85025; 85027; 85610; 85730; 87040; 87070; 87077; 87186; 87205; 87804; 87899; 93005; 93010; 94640; 99283-25; G0378; J7030

== ENCOUNTER 2018-06-06 23:16 | Emergency (ER) | payer OTHER ==
[2018-06-06 23:37] VITALS: BMI 24.0
--- NOTE | 2018-06-06 23:55 | PDOC ---
History of Present Illness - General Chief Complaint: Shortness of Breath Stated Complaint: DIFFICULTY BREATHING Time Seen by Provider: 06/06/18 23:42 History Source: EMS, Other (Aid at bedside) Exam Limitations: Clinical Condition, Physical Impairment, Unresponsive - History of Present Illness Initial Comments: Mr. Patterson is a 28 yo male w/ pmh of cerebral palsy, seizures, epilepsy, recurrent aspiration pneumonia, scoliosis, PEG tube BIBEMS from [facility] who presents for evaluation of respiratory distress and subjective fevers. Staff presenting with him unable to provide more information however patient reported as congested sounding via EMS. History is limited as patient is non-verbal and he cannot provide additional information. He received tylenol at 6 pm. He has received 4 atrovent treatments. PCP: Marlen Amaya Allergies: Albuterol, Seafood, wool, latex, cephalosporin, penicillin, shrimp. Social: Patient does not smoke, drink alcohol, or use illicit drugs. Past History - Past Medical History Allergies/Adverse Reactions: Allergies Allergy/AdvReac Type Severity Reaction Status Date / Time albuterol Allergy Verified 06/06/18 23:35 Cephalosporins Allergy Verified 06/06/18 23:35 latex Allergy Verified 06/06/18 23:35 Penicillins Allergy Verified 06/06/18 23:35 shrimp Allergy Verified 06/06/18 23:35 wool Allergy Verified 06/06/18 23:35 Home Medications: Ambulatory Orders Clobazam [Onfi -] 10 mg GT HS 11/23/17 Diazepam [Diastat] 10 mg RC ONCE PRN 11/23/17 Fluticasone Prop 0.05% Nasal [Flonase -] 2 spray NS 11/23/17 Lorazepam [Ativan] 1 mg GT ASDIR PRN 11/23/17 Polyethylene Glycol 3350 [Miralax 119 gm Btl -] 17 gm GT ASDIR 11/23/17 Rufinamide [Banzel] 1,600 mg GT BID 11/23/17 Zonisamide [Zonegran -] 50 mg GT HS 11/23/17 Zonisamide [Zonegran] 200 mg GT TID 11/23/17 Topiramate [Topamax] 300 mg GT DAILY 02/14/18 Carbamazepine 300 mg GT DAILY 04/02/18 Ipratropium 0.02% Nebulizer [Atrovent 0.02% Nebulizer -] 1 amp IH QID PRN Topiramate [Qudexy Xr] 400 mg GT HS 04/02/18 Carbamazepine 400 mg GT AM 04/03/18 Carbamazepine 400 mg GT HS 04/03/18 Silver Sulfadiazine 1% Top Cr 1 appful TP TID 04/22/18 Clobazam [Onfi -] 5 mg GT DAILY 04/23/18 EPINEPHrine (EPI-PEN 0.3MG) [Epipen 0.3MG -] 0.3 mg IM ASDIR 04/23/18 Hydrocolloid Dressing [Duoderm Cgf] 1 applic TP DAILY PRN 04/23/18 Levofloxacin [Levaquin] 500 mg PO DAILY #4 tablet 04/26/18 Sulfamethoxazole/Trimethoprim [Bactrim Ds -] 1 tab PO BID #14 tablet 06/07/18 Anemia: No Asthma: No Cancer: No Cardiac Disorders: No CVA: No COPD: No CHF: No Dementia: No Diabetes: No GI Disorders: Yes (gtube) Disorders: No HTN: No Hypercholesterolemia: No Liver Disease: No Seizures: Yes (epilepsy, cp,) Thyroid Disease: No - Surgical History Abdominal Surgery: Yes (gtube feeding) Orthopedic Surgery: (scoliosis repair) - Immunization History Immunization Up to Date: Yes - Suicide/Smoking/Psychosocial Hx Smoking History: Never smoked Have you smoked in the past 12 months: No Information on smoking cessation initiated: No Hx Alcohol Use: No Drug/Substance Use Hx: No Substance Use Type: None Hx Substance Use Treatment: No Review of Systems - Review of Systems Able to Perform ROS?: No (Patient is Non-verbal) *Physical Exam - Vital Signs Last Vital Signs Temp Pulse Resp BP Pulse Ox 97.8 F 86 20 102/66 100 06/06/18 23:35 06/06/18 23:35 06/06/18 23:35 06/06/18 23:35 06/06/18 23:35 - Physical Exam General Appearance: Yes: Nourished, Disheveled HEENT: positive: [place]ENTINE, Pharynx Normal, Tonsillar Exudate, Excessive drooling. negative: EOMI, Pharyngeal Erythema, TM Bulging Neck: positive: Trachea midline, Supple. negative: Stridor, Lymphadenopathy (R) , Lymphadenopathy (L) Respiratory/Chest: positive: Normal Breath Sounds. negative: Stridor, Wheezing Cardiovascular: positive: Regular Rhythm, Regular Rate, S1, S2 Vascular Pulses: Dorsalis-Pedis (R): 2+, Doralis-Pedis (L): 2+ Gastrointestinal/Abdominal: positive: Normal Bowel Sounds, Pulsatile Mass (PEG Tube) Lymphatic: negative: Adenopathy Musculoskeletal: positive: Normal Inspection Extremity: positive: Normal Capillary Refill, Normal Inspection Integumentary: positive: Normal Color, Dry, Warm Neurologic: positive: Other (Patient is non-verbal). negative: Fully Oriented, Alert, Normal Response Moderate Sedation - Procedure Monitoring Vital Signs: Procedure Monitoring Vital Signs Temperature 97.8 F 06/06/18 23:35 Pulse Rate 86 06/06/18 23:35 Respiratory Rate 20 06/06/18 23:35 Blood Pressure 102/66 06/06/18 23:35 O2 Sat by Pulse Oximetry (%) 100 06/06/18 23:35 ED Treatment Course - LABORATORY CBC & Chemistry Diagram: 06/07/18 01:17 06/07/18 00:42 Medical Decision Making - Medical Decision Making Mr. Patterson is a 28 yo male w/ pmh of cerebral palsy, seizures, epilepsy, recurrent aspiration pneumonia, scoliosis, PEG tube BIBEMS from [facility] who presents for evaluation of respiratory distress and subjective fevers. DDx IBNLT: PNA, URI, influenza, aspiration, seizure Plan: Cbc, Cmp, lactic, rapid flu, ua/uc, CXR, re-assess. Labs unremarkable Rectal temp: 97.6 Flu negative. CXR unchanged from prior Patient is satting at 100% with no respiratory distress. Lactic acid not elevated. Patient was mildly hyponatremic - gave him a liter of normal saline. Patient has 1+ blood on UA and trace LE. Will treat UTI with 1 week of bactrim BID. *DC/Admit/Observation/Transfer Diagnosis at time of Disposition: Respiratory distress, UTI (urinary tract infection) - Discharge Dispostion Disposition: LONG-TERM FACILITY Condition at time of disposition: Improved Decision to Admit order: No - Prescriptions Prescriptions: Sulfamethoxazole/Trimethoprim [Bactrim Ds -] 1 tab PO BID #14 tablet - Referrals Referrals: Marlen Amaya MD [Nurse Practitioner] - - Patient Instructions Printed Discharge Instructions: DI for Respiratory Distress Syndrome -- Adult Additional Instructions: You came into the ER with respiratory distress. There was some blood in your urine and we believe you might have a urinary tract infection. Please make sure to goto the [facility] pharmacy and oyster picker your Abx. Take bactrim twice a day for the next 7 days. You had no fever here in the ER. Oxygen saturation was 100%. Chest x-ray was normal. All your labs were within normal limits. Come back to the emergency room if you develop a fever, start vomiting, or have any other new or worsening concerns. Thank you for coming to the [facility] ER. We hope you feel better soon! Print Language: WOLOF - Post Discharge Activity
--- NOTE | 2018-06-06 23:59 | PDOC ---
Attending Attestation - Resident Resident Name: Jackson Marie - ED Attending Attestation I have performed the following: I have examined & evaluated the patient, The case was reviewed & discussed with the resident, I agree w/resident's findings & plan - HPI HPI: 06/07/18 04:54 Pt was brought to the ER for cough and cold. He was sent for evaluation to r/o pneumonia Pt is afebrile and he has no other complaints. - Physicial Exam PE: 06/07/18 04:54 Agree with resident exam - Medical Decision Making 06/07/18 06:09 Pt's labs normal; UTI mild, on straight cath specimen. Pt has no fever and no chills. Pt has a slight cough, but CXR is clear. Pt's O2sat is 100% on RA. 06/08/18 01:30 Pt will go home with abx
[2018-06-07] MEDS ORDERED: IPRATROPIUM BR 0.02% 0.5 MG/2.5 ML VIAL.NEB. NEB ONE ×2 (00:10→00:11)
[2018-06-07 01:14] LABS: URINE APPEARANCE CLEAR; URINE BILIRUBIN NEGATIVE (<2.0 mg/dL); URINE COLOR YELLOW; URINE GLUCOSE (UA) NEGATIVE (NEGATIVE); URINE KETONE NEGATIVE (NEGATIVE); URINE LEUK ESTERASE TRACE (NEGATIVE); URINE NITRITE NEGATIVE (NEGATIVE); URINE PROTEIN NEGATIVE (NEGATIVE); URINE UROBILINOGEN NEGATIVE mg/dL (0.2-1.0)
[2018-06-07 01:26] LABS: ALBUMIN 3.7 g/dl (3.4-5.0); ALK PHOS 147 U/L (45-117); ANION GAP 6 MMOL/L (8-16); BILIRUBIN,TOTAL 0.3 mg/dL (0.2-1); BLOOD UREA NITROGEN 12 mg/dL (7-18); CALCIUM 8.4 mg/dL (8.5-10.1); CHLORIDE 97 mmol/L (98-107); CO2 28 mmol/L (21-32); CREATININE 0.4 mg/dL (0.55-1.3); GLUCOSE,RANDOM 77 mg/dL (74-106); POTASSIUM 4.1 mmol/L (3.5-5.1); SGOT/AST 27 U/L (15-37); SGPT/ALT 39 U/L (13-61); SODIUM 132 mmol/L (136-145); TOT PROT 7.7 g/dl (6.4-8.2)
[2018-06-07 01:26] LABS: VENOUS PC02 58.3 mmHg (38-52); VENOUS PH 7.3 (7.32-7.42); VENOUS PO2 51.2 mmHg (28-48)
[2018-06-07] MEDS ORDERED: SODIUM CHLORIDE 0.9% 500 ML INFUS.BAG IV ONE (01:35)
[2018-06-07 01:36] LABS: URINE HYALINE CAST 2 /lpf; URINE MUCUS RARE
[2018-06-07 03:23] LABS: BASO % 0.4 % (0-2.0); EOS % 0.2 % (0-4.5); HEMATOCRIT 38.3 % (35.4-49); HEMOGLOBIN 13.3 GM/dL (11.7-16.9); LYMPH % 23.3 % (8-40); MCH 33.3 pg (25.7-33.7); MCHC 34.6 g/dl (32.0-35.9); MEAN CELL VOLUME 96.4 fl (80-96); MONO % 8.1 % (3.8-10.2); PLATELET COUNT 182 K/MM3 (134-434); RBC 3.97 M/mm3 (4.00-5.60); RDW 13.9 % (11.9-15.9); WHITE BLOOD COUNT 7.7 K/mm3 (4.0-10.0)
[2018-06-07 07:22] VITALS: BP 113/67; PULSE 87; TEMP 97.6
== END 2018-06-07 08:00 ==
LOC: JER 23:16
PROC: 3E0337Z Introduction of Electrolytic and Water Balance Substance into Peripheral Vein, Percutaneous Approach (ICD-10-PCS; principal; 2018-06-06)
DX: R06.03 Acute respiratory distress (principal); N39.0 Urinary tract infection, site not specified; G80.9 Cerebral palsy, unspecified; G40.909 Epilepsy, unspecified, not intractable, without status epilepticus; M41.9 Scoliosis, unspecified
CPT/HCPCS: 36415; 71045-TC-FY; 80053; 81003; 81015; 82803; 83605; 85025; 87086; 87186; 87804; 99284-25

== ENCOUNTER 2018-06-30 12:35 | Inpatient (IN) | payer OTHER ==
--- NOTE | 2018-06-30 13:32 | PDOC ---
Attending Attestation - Resident Resident Name: MiriamElham - ED Attending Attestation I have performed the following: I have examined & evaluated the patient, The case was reviewed & discussed with the resident, I agree w/resident's findings & plan - HPI HPI: 06/30/18 13:46 The patient is a 28 year old male, with a significant past medical history of cerebral palsy, seizures, epilepsy, recurrent aspiration pneumonia, scoliosis, PEG tube BIBEMS from [facility], who presents to the emergency department with, a fever of 101.8F and hypoxia. History was obtained via nursing paperwork and aid at bedside due to patients clinical condition. Allergies: latex, penicillin, albuterol, wool, shrimp Past surgical history: G tube, scoliosis surgeries Social History: Resident at [facility]. Wheelchair bound. <Suman Dyson - Last Filed: 06/30/18 13:46> - Physicial Exam PE: 06/30/18 16:08 Agree with resident exam. Patient is non verbal at baseline. Tachypneic and tachycardic. G tube is in place with no drainage around the tube and minimal drainage around the site. abdomen is non tender. - Medical Decision Making 06/30/18 16:10 Pt presents to the ED with tachypnea, tachycardia and fever in the longterm suggestive of sepsis. History of PNA in the past, CXR is suggestive of PNA. Allergic to PCNs. Will treat with vancomycin and levaquin for PNA, admit to medicine for continued treatment. <Maya Najera - Last Filed: 06/30/18 16:12> Attestations - Attestations 06/30/18 13:46 Documentation prepared by uSman Dyson, acting as medical legal investigator for Maya Najera MD. <Suman Dyson - Last Filed: 06/30/18 13:46>
[2018-06-30] MEDS ORDERED: ACETAMINOPHEN 1000 MG/100 ML VIAL (NON FORMULARY) IVPB ONE (13:40)
--- NOTE | 2018-06-30 13:55 | PDOC ---
History of Present Illness - General Chief Complaint: Weakness Stated Complaint: WEAKNESS Time Seen by Provider: 06/30/18 12:55 - History of Present Illness Initial Comments: 06/30/18 13:55 Patient is a 28 yo male w/ pmh of cerebral palsy, seizures, epilepsy, recurrent aspiration pneumonia, scoliosis, PEG tube BIBEMS from [facility] who presents with temperature of 101.8 satting 96 on RA and poor air exchange as described by physician notes from facility. The patient has recurrent aspiration pneumonia and has baseline drooling, but noticable thicker sputum. The patient at baseline is nonverbal, does not follow commands and is wheelchair bound, communicating primarily with occasional eye contact and smiles. No further history is provided. Past History - Past Medical History Allergies/Adverse Reactions: Allergies Allergy/AdvReac Type Severity Reaction Status Date / Time albuterol Allergy Verified 06/30/18 12:44 Cephalosporins Allergy Verified 06/30/18 12:44 latex Allergy Verified 06/30/18 12:44 Penicillins Allergy Verified 06/30/18 12:44 shrimp Allergy Verified 06/30/18 12:44 wool Allergy Verified 06/30/18 12:44 Home Medications: Ambulatory Orders Clobazam [Onfi -] 10 mg GT HS 11/23/17 Diazepam [Diastat] 10 mg RC ONCE PRN 11/23/17 Fluticasone Prop 0.05% Nasal [Flonase -] 2 spray NS HS 11/23/17 Lorazepam [Ativan] 1 mg GT ASDIR PRN 11/23/17 Polyethylene Glycol 3350 [Miralax 119 gm Btl -] 17 gm GT ASDIR 11/23/17 Rufinamide [Banzel] 1,600 mg GT BID 11/23/17 Zonisamide [Zonegran -] 50 mg GT HS 11/23/17 Zonisamide [Zonegran] 200 mg GT TID 11/23/17 Topiramate [Topamax] 300 mg GT DAILY 02/14/18 Carbamazepine 300 mg GT DAILY 04/02/18 Ipratropium 0.02% Nebulizer [Atrovent 0.02% Nebulizer -] 1 amp IH QID PRN Topiramate [Qudexy Xr] 400 mg GT HS 04/02/18 Carbamazepine 400 mg GT AM 04/03/18 Carbamazepine 400 mg GT HS 04/03/18 Silver Sulfadiazine 1% Top Cr 1 appful TP TID 04/22/18 Clobazam [Onfi -] 5 mg GT DAILY 04/23/18 EPINEPHrine (EPI-PEN 0.3MG) [Epipen 0.3MG -] 0.3 mg IM ASDIR 04/23/18 Hydrocolloid Dressing [Duoderm Cgf] 1 applic TP DAILY PRN 04/23/18 Levofloxacin [Levaquin] 500 mg PO DAILY #4 tablet 04/26/18 Sulfamethoxazole/Trimethoprim [Bactrim Ds -] 1 tab PO BID #14 tablet 06/07/18 Scopolamine Hydrobromide [Transderm-Scop -] 1 patch TD Q3D@1000 patch.[id number] Anemia: No Asthma: No Cancer: No Cardiac Disorders: No CVA: No COPD: No CHF: No Dementia: No Diabetes: No GI Disorders: Yes (gtube) Disorders: No HTN: No Hypercholesterolemia: No Liver Disease: No Seizures: Yes (epilepsy, cp,) Thyroid Disease: No - Surgical History Abdominal Surgery: Yes (gtube feeding) Orthopedic Surgery: (scoliosis repair) - Immunization History Immunization Up to Date: Yes - Suicide/Smoking/Psychosocial Hx Smoking History: Never smoked Have you smoked in the past 12 months: No Hx Alcohol Use: No Drug/Substance Use Hx: No Substance Use Type: None Hx Substance Use Treatment: No Review of Systems - Review of Systems Able to Perform ROS?: Yes Is the patient limited Kazakh proficient: No Constitutional: No: Chills, Diaphoresis, Fever HEENTM: No: Eye Pain, Tinnitus Respiratory: No: Cough, Orthopnea, Shortness of Breath Cardiac (ROS): No: Chest Pain, Lightheadedness ABD/GI: No: Constipated, Diarrhea, Nausea, Poor Appetite : No: Burning, Dysuria Musculoskeletal: No: Back Pain Neurological: No: Headache, Numbness, Tingling *Physical Exam - Vital Signs Last Vital Signs Temp Pulse Resp BP Pulse Ox 98.1 F 120 H 20 105/67 99 06/30/18 12:40 06/30/18 12:40 06/30/18 12:40 06/30/18 12:40 06/30/18 12:40 - Physical Exam Comments: 06/30/18 14:00 GENERAL: Awake, alert, and fully oriented, in no acute distress HEAD: No signs of trauma, normocephalic, atraumatic EYES: EOMI, sclera anicteric, conjunctiva clear ENT: oropharynx clear without exudates. Moist mucosa NECK: Normal ROM, supple LUNGS: No distress, speaks full sentences, poor breath sounds in upper lobes, lower bases with slight expiratroy wheeze HEART: Regular rate and rhythm, normal S1 and S2, no murmurs, rubs or gallops, peripheral pulses normal and equal bilaterally. ABDOMEN: Soft, nontender, normoactive bowel sounds. No guarding, no rebound. No masses, R sided abdominal peg tube slight erythema around site but clean dry and intact thick mucus drool on the R shoulder EXTREMITIES : Normal inspection, Normal range of motion, no edema. No clubbing or cyanosis. NEUROLOGICAL: Cranial nerves II through XII grossly intact. Normal speech, no focal sensorimotor deficits SKIN: Warm, Dry, normal turgor, no rashes or lesions noted Moderate Sedation - Procedure Monitoring Vital Signs: Procedure Monitoring Vital Signs Temperature 98.1 F 06/30/18 12:40 Pulse Rate 120 H 06/30/18 12:40 Respiratory Rate 20 06/30/18 12:40 Blood Pressure 105/67 06/30/18 12:40 O2 Sat by Pulse Oximetry (%) 99 06/30/18 12:40 ED Treatment Course - LABORATORY CBC & Chemistry Diagram: 07/04/18 12:12 07/04/18 12:12 - RADIOLOGY Radiology Studies Ordered: Category Date Time Status CXRPORT [CHEST X-RAY PORTABLE*] [RAD] Stat Radiology 06/30/18 13:17 Ordered Medical Decision Making - Medical Decision Making 06/30/18 13:59 Patient is a 28 yo male w/ pmh of cerebral palsy, seizures, epilepsy, recurrent aspiration pneumonia, scoliosis, PEG tube BIBEMS from [facility] who presents with temperature of 101.8 satting 96 on RA and poor air exchange as described by physician notes from facility. The patient has recurrent aspiration pneumonia and has baseline drooling, but noticable thicker sputum. ED Course: Consider aspiration pna vs bronchitis for fever consider uti as patient is incontinent. cbc, cmp, ua, ucx, lactic, trop, cxr 06/30/18 14:02 Per nursing the patient was desating to the 70s on RA and requiring 4L NC to sat at 99 06/30/18 14:33 CXR: increased L sided patchiness, cannot visualize L sided costophrenic angle, R lung field with approriate vascular markings, notable consolidations as read by this advertising copywriter. Patient admitted to medicine to medicine for further workup and evaluation. *DC/Admit/Observation/Transfer Diagnosis at time of Disposition: Pneumonia - Discharge Dispostion Condition at time of disposition: Stable Decision to Admit order: Yes - Referrals - Patient Instructions - Post Discharge Activity
[2018-06-30 14:24] LABS: VENOUS PC02 48.2 mmHg (38-52); VENOUS PH 7.33 (7.32-7.42); VENOUS PO2 51.8 mmHg (28-48)
[2018-06-30] MEDS ORDERED: ACETAMINOPHEN INJECTION 100 ML IVPB ONE (14:25)
[2018-06-30 14:33] LABS: BASO % 0.3 % (0-2.0); HEMATOCRIT 46.2 % (35.4-49); LYMPH % 5.6 % (8-40); MCH 31.2 pg (25.7-33.7); MCHC 32.4 g/dl (32.0-35.9); MEAN CELL VOLUME 96.3 fl (80-96); MEAN PLT VOLUME 7.4 fl (7.5-11.1); MONO % 6.5 % (3.8-10.2); NEUT % 87.6 % (42.8-82.8); PLATELET COUNT 171 K/MM3 (134-434); RDW 14.3 % (11.9-15.9); WHITE BLOOD COUNT 17.7 K/mm3 (4.0-10.0)
[2018-06-30 14:43] LABS: ALK PHOS 150 U/L (45-117); ANION GAP 9 MMOL/L (8-16); BILIRUBIN,TOTAL 0.5 mg/dL (0.2-1); BLOOD UREA NITROGEN 9 mg/dL (7-18); CALCIUM 8.4 mg/dL (8.5-10.1); CHLORIDE 94 mmol/L (98-107); CO2 26 mmol/L (21-32); CREATININE 0.4 mg/dL (0.55-1.3); GLUCOSE,RANDOM 90 mg/dL (74-106); POTASSIUM 3.7 mmol/L (3.5-5.1); SGOT/AST 19 U/L (15-37); SGPT/ALT 33 U/L (13-61); SODIUM 129 mmol/L (136-145); TOT PROT 7.9 g/dl (6.4-8.2)
[2018-06-30] MEDS ORDERED: VANCOMYCIN 1,000 MG in DEXTROSE 5%-WATER - 250 ML IVPB ONE (14:44)
[2018-06-30] MEDS ORDERED: CLINDAMYCIN 600MG PREMIX IVPB 600 MG/50 ML BAG IVPB ONE ×2 (14:47→16:41)
[2018-06-30] MEDS: SODIUM CHLORIDE 1,000 ML IV SCH (15:02)
[2018-06-30 15:25] LABS: INR 1.11 (0.83-1.09); PROTHROMBIN TIME (PATIENT) 13.1 SEC (9.7-13.0)
[2018-06-30 15:28] LABS: ACTIVATED PTT 34.3 SECONDS (25.2-36.5)
--- NOTE | 2018-06-30 17:16 | HP ---
Admitting History and Physical - Primary Care Physician PCP: Royal Maria - Admission History of Present Illness: 28 yo male w/ pmh of cerebral palsy, seizures, epilepsy, recurrent aspiration pneumonia, scoliosis, PEG tube BIBEMS from [facility] who presents with temperature of 101.8 satting 96 on RA and poor air exchange as described by physician notes from facility. The patient has recurrent aspiration pneumonia and has baseline drooling, but noticable thicker sputum. The patient at baseline is nonverbal, does not follow commands and is wheelchair bound, communicating primarily with occasional eye contact and smiles. No further history is provided. 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: Seizure, Other (cerebral palsy, intellectual disability) Pulmonary: Yes: Pneumonia Renal/: Yes: UTI (recent enterococcal uti- 03/2018) - Smoking History Smoking history: Never smoked Have you smoked in the past 12 months: No - Alcohol/Substance Use Hx Alcohol Use: No - Social History ADL: Support Services History of Recent Travel: No Home Medications - Allergies Allergies/Adverse Reactions: Allergies Allergy/AdvReac Type Severity Reaction Status Date / Time albuterol Allergy Verified 06/30/18 12:44 Cephalosporins Allergy Verified 06/30/18 12:44 latex Allergy Verified 06/30/18 12:44 Penicillins Allergy Verified 06/30/18 12:44 shrimp Allergy Verified 06/30/18 12:44 wool Allergy Verified 06/30/18 12:44 - Home Medications Home Medications: Ambulatory Orders Clobazam [Onfi -] 10 mg GT HS 11/23/17 Diazepam [Diastat] 10 mg RC ONCE PRN 11/23/17 Fluticasone Prop 0.05% Nasal [Flonase -] 2 spray NS HS 11/23/17 Lorazepam [Ativan] 1 mg GT ASDIR PRN 11/23/17 Polyethylene Glycol 3350 [Miralax 119 gm Btl -] 17 gm GT ASDIR 11/23/17 Rufinamide [Banzel] 1,600 mg GT BID 11/23/17 Zonisamide [Zonegran -] 50 mg GT HS 11/23/17 Zonisamide [Zonegran] 200 mg GT TID 11/23/17 Topiramate [Topamax] 300 mg GT DAILY 02/14/18 Carbamazepine 300 mg GT DAILY 04/02/18 Ipratropium 0.02% Nebulizer [Atrovent 0.02% Nebulizer -] 1 amp IH QID PRN Topiramate [Qudexy Xr] 400 mg GT HS 04/02/18 Carbamazepine 400 mg GT AM 04/03/18 Carbamazepine 400 mg GT HS 04/03/18 Silver Sulfadiazine 1% Top Cr 1 appful TP TID 04/22/18 Clobazam [Onfi -] 5 mg GT DAILY 04/23/18 EPINEPHrine (EPI-PEN 0.3MG) [Epipen 0.3MG -] 0.3 mg IM ASDIR 04/23/18 Hydrocolloid Dressing [Duoderm Cgf] 1 applic TP DAILY PRN 04/23/18 Levofloxacin [Levaquin] 500 mg PO DAILY #4 tablet 04/26/18 Sulfamethoxazole/Trimethoprim [Bactrim Ds -] 1 tab PO BID #14 tablet 06/07/18 Physical Examination Vital Signs: Vital Signs Temperature 98.1 F 06/30/18 12:40 Pulse Rate 120 H 06/30/18 12:40 Respiratory Rate 20 06/30/18 12:40 Blood Pressure 105/67 06/30/18 12:40 O2 Sat by Pulse Oximetry (%) 99 06/30/18 12:40 Constitutional: Yes: Calm HENT: Yes: Atraumatic Neck: Yes: Supple Cardiovascular: Yes: Regular Rate and Rhythm Respiratory: Yes: Rhonchi Gastrointestinal: Yes: Other (peg in place) Edema: No Labs: CBC, BMP 06/30/18 14:03 06/30/18 14:03 Problem List - Problems (1) Pneumonia Assessment/Plan: iv abx cxs sent Code(s): J18.9 - PNEUMONIA, UNSPECIFIED ORGANISM (2) Cerebral palsy Code(s): G80.9 - CEREBRAL PALSY, UNSPECIFIED (3) Functional quadriplegia Code(s): R53.2 - FUNCTIONAL QUADRIPLEGIA (4) Respiratory distress Code(s): R06.03 - ACUTE RESPIRATORY DISTRESS (5) Scoliosis Code(s): M41.9 - SCOLIOSIS, UNSPECIFIED (6) Seizure Assessment/Plan: continue home meds Code(s): R56.9 - UNSPECIFIED CONVULSIONS Assessment/Plan Laboratory Results - last 24 hr 06/30/18 06/30/18 06/30/18 13:19 13:29 13:50 WBC RBC Hgb Hct MCV MCH MCHC RDW Plt Count MPV Absolute Neuts (auto) Neutrophils % Lymphocytes % Monocytes % Eosinophils % Basophils % Nucleated RBC % PT with INR INR PTT (Actin FS) VBG pH POC VBG pCO2 POC VBG pO2 Mixed VBG HCO3 Sodium Potassium Chloride Carbon Dioxide Anion Gap BUN Creatinine Creat Clearance w eGFR Random Glucose Lactic Acid 1.6 Calcium Total Bilirubin AST ALT Alkaline Phosphatase Troponin I Total Protein Albumin Influenza A (Rapid) Negative Influenza B (Rapid) Negative RSV Rapid Negative 06/30/18 06/30/18 06/30/18 14:03 14:03 14:03 WBC 17.7 H RBC 4.80 Hgb 15.0 Hct 46.2 D MCV 96.3 H MCH 31.2 MCHC 32.4 RDW 14.3 Plt Count 171 MPV 7.4 L Absolute Neuts (auto) 15.5 H Neutrophils % 87.6 H D Lymphocytes % 5.6 L D Monocytes % 6.5 Eosinophils % 0.0 D Basophils % 0.3 Nucleated RBC % 0 PT with INR INR PTT (Actin FS) VBG pH POC VBG pCO2 POC VBG pO2 Mixed VBG HCO3 Sodium 129 L Potassium 3.7 Chloride 94 L Carbon Dioxide 26 Anion Gap 9 BUN 9 Creatinine 0.4 L Creat Clearance w eGFR > 60 Random Glucose 90 Lactic Acid Calcium 8.4 L Total Bilirubin 0.5 AST 19 ALT 33 Alkaline Phosphatase 150 H Troponin I < 0.02 Total Protein 7.9 Albumin 4.0 Influenza A (Rapid) Influenza B (Rapid) RSV Rapid 06/30/18 06/30/18 14:20 14:41 WBC RBC Hgb Hct MCV MCH MCHC RDW Plt Count MPV Absolute Neuts (auto) Neutrophils % Lymphocytes % Monocytes % Eosinophils % Basophils % Nucleated RBC % PT with INR 13.10 H INR 1.11 H PTT (Actin FS) 34.3 VBG pH 7.33 POC VBG pCO2 48.2 POC VBG pO2 51.8 H Mixed VBG HCO3 24.4 Sodium Potassium Chloride Carbon Dioxide Anion Gap BUN Creatinine Creat Clearance w eGFR Random Glucose Lactic Acid Calcium Total Bilirubin AST ALT Alkaline Phosphatase Troponin I Total Protein Albumin Influenza A (Rapid) Influenza B (Rapid) RSV Rapid Active Medications Generic Name Dose Route Start Last Admin Trade Name Freq PRN Reason Stop Dose Admin Sodium Chloride 1,000 mls @ 0 mls/hr 06/30/18 13:45 06/30/18 15:02 Normal Saline - IV 1,000 mls/hr ASDIR BRAD Administration Wide Open Active Medications Generic Name Dose Route Start Last Admin Trade Name Freq PRN Reason Stop Dose Admin Carbamazepine 400 mg 07/01/18 07:00 07/01/18 06:49 Tegretol Oral Suspension - GT 400 mg AM BRAD Administration Carbamazepine 400 mg 06/30/18 22:00 06/30/18 22:00 Tegretol Oral Suspension - GT Not Given HS BRAD Clobazam 10 mg 06/30/18 22:00 07/01/18 06:49 Onfi - GT Not Given HS BRAD Clobazam 5 mg 07/01/18 10:15 07/01/18 15:11 Onfi - PO 5 mg DAILY BRAD Administration Sodium Chloride 1,000 mls @ 0 mls/hr 06/30/18 13:45 07/01/18 15:20 Normal Saline - IV Not Given ASDIR BRAD Wide Open Aztreonam 1 gm/ Dextrose 50 mls @ 100 mls/hr 07/01/18 14:15 07/01/18 15:19 IVPB 100 mls/hr Q8H-IV BRAD Administration Protocol Vancomycin HCl 1,250 mg/ 250 mls @ 250 mls/2 hr 07/01/18 14:15 07/01/18 15:19 Dextrose IVPB 250 mls/2 hr Q24H BRAD Administration Protocol Lorazepam 1 mg 07/01/18 09:44 07/01/18 10:50 Ativan Injection - IVPUSH 1 mg Q6H PRN Administration seizures Non-Formulary Medication 1 applic 06/30/18 17:17 Hydrocolloid Dressing [Duoderm Cgf] TP DAILY PRN WOUND CARE Non-Formulary Medication 1,600 mg 06/30/18 22:00 Rufinamide [Banzel] GT BID BRAD Polyethylene Glycol 17 gm 07/01/18 10:00 07/01/18 10:45 Miralax (For Daily Use) - GT Not Given DAILY BRAD Topiramate 300 mg 07/01/18 10:00 07/01/18 10:13 Topamax - GT 300 mg DAILY BRAD Administration Zonisamide 200 mg 06/30/18 22:00 01/08/19 16:14 Zonisamide GT 200 mg TID BRAD Administration Zonisamide 50 mg 06/30/18 22:00 07/01/18 06:50 Zonisamide GT Not Given HS BRAD
[2018-06-30] MEDS ORDERED: HYDROCOLLOID DRESSING TP PRN (17:17)
[2018-06-30] MEDS ORDERED: VANCOMYCIN 1 GRAM (PRE-DOCKED) 1,000 MG/250 ML BAG IVPB ONE (18:45)
[2018-06-30] MEDS ORDERED: ZONISAMIDE 100 MG CAPSULE GT SCH ×2 (22:00)
[2018-06-30] MEDS ORDERED: RUFINAMIDE GT SCH (22:00)
[2018-06-30] MEDS: carBAMazepine 200 MG/10 ML UNIT-DOSE CUP GT SCH (22:00)
[2018-07-01] MEDS: ZONISAMIDE 100 MG/10 ML ORAL SUSPENSION GT SCH ×6 (06:48→22:22)
[2018-07-01] MEDS: cloBAZam 10 MG TABLET GT SCH ×2 (06:49→22:18)
[2018-07-01] MEDS: carBAMazepine 200 MG/10 ML UNIT-DOSE CUP GT SCH ×2 (06:49→22:18)
--- NOTE | 2018-07-01 09:42 | HOSP ---
Subjective - Review of Symptoms Events since last encounter: pt unable to participate in ROS Physical Examination Vital Signs: Vital Signs Temperature 98.6 F 07/01/18 05:58 Pulse Rate 92 H 07/01/18 05:58 Respiratory Rate 20 07/01/18 05:58 Blood Pressure 139/74 07/01/18 05:58 O2 Sat by Pulse Oximetry (%) 100 06/30/18 21:16 Constitutional: Yes: Well Nourished Eyes: Yes: WNL HENT: Yes: Atraumatic Neck: Yes: Supple Cardiovascular: Yes: Tachycardia Respiratory: Yes: Accessory Muscle Use Gastrointestinal: Yes: WNL ...Rectal Exam: Yes: Deferred Renal/: Yes: Other Breast(s): Yes: Other Musculoskeletal: Yes: Other Extremities: Yes: Other Neurological: Yes: Other Labs: CBC, BMP 06/30/18 14:03 06/30/18 14:03 Hospitalist Encounter Assessment: 28 year old male from [facility]. Asked to come see patient post seizure. Patient is lethargic with hx of profound MR temp: 97.6 rectal, tachycardia 108 rrr. As per EXTERMINATION SUPERVISOR who was in room and RN verbal report, patient had a tonic clonic seizure lasting ~ 45 seconds patient awake on exam, but drowsy will order: check labs now - check electrolytes seizure precautions ativan 1mg prn q6 for breakthrough seizures\ celsa henderson NP [facility] [phone]
[2018-07-01] MEDS ORDERED: LORazepam 2 MG/ML SDV VIAL IVPUSH PRN (09:44)
--- NOTE | 2018-07-01 10:04 | EKG ---
Test Reason : Blood Pressure : / mmHG Vent. Rate : 106 BPM Atrial Rate : 106 BPM P-R Int : 150 ms QRS Dur : 100 ms QT Int : 338 ms P-R-T Axes : 048 144 041 degrees QTc Int : 448 ms POOR DATA QUALITY, INTERPRETATION MAY BE ADVERSELY AFFECTED SINUS TACHYCARDIA LEFT ATRIAL ENLARGEMENT RIGHT AXIS DEVIATION INCOMPLETE RIGHT BUNDLE BRANCH BLOCK RIGHT VENTRICULAR HYPERTROPHY ABNORMAL ECG Confirmed by Mesfin Sierra MD ([id number]) on 07/01/2018 10:03:37 AM Referred By: Confirmed By:Mesfin Sierra MD
[2018-07-01] MEDS ORDERED: PT OWN MED DRAWER 7, Y5N ONE (10:12)
[2018-07-01] MEDS: TOPIRAMATE 100 MG TABLET GT SCH (10:13)
[2018-07-01] MEDS: POLYETHYLENE GLYCOL 3350 119 GM BTL GT SCH ×2 (10:14→10:45)
[2018-07-01 10:39] LABS: BASO % 0.4 % (0-2.0); EOS % 0.2 % (0-4.5); HEMATOCRIT 37.8 % (35.4-49); HEMOGLOBIN 13.2 GM/dL (11.7-16.9); LYMPH % 11.1 % (8-40); MCH 33.4 pg (25.7-33.7); MCHC 34.8 g/dl (32.0-35.9); MEAN CELL VOLUME 95.9 fl (80-96); MEAN PLT VOLUME 7.1 fl (7.5-11.1); MONO % 5.3 % (3.8-10.2); PLATELET COUNT 162 K/MM3 (134-434); RBC 3.94 M/mm3 (4.00-5.60); RDW 14.1 % (11.9-15.9); WHITE BLOOD COUNT 8.2 K/mm3 (4.0-10.0)
[2018-07-01 11:08] LABS: ALBUMIN 3.4 g/dl (3.4-5.0); ALK PHOS 125 U/L (45-117); ANION GAP 9 MMOL/L (8-16); BILIRUBIN,TOTAL 0.5 mg/dL (0.2-1); BLOOD UREA NITROGEN 7 mg/dL (7-18); CALCIUM 8.1 mg/dL (8.5-10.1); CHLORIDE 100 mmol/L (98-107); CO2 24 mmol/L (21-32); CREATININE 0.3 mg/dL (0.55-1.3); GLUCOSE,RANDOM 98 mg/dL (74-106); MAGNESIUM 1.8 mg/dL (1.8-2.4); POTASSIUM 3.8 mmol/L (3.5-5.1); SGOT/AST 18 U/L (15-37); SGPT/ALT 32 U/L (13-61); SODIUM 133 mmol/L (136-145); TOT PROT 6.8 g/dl (6.4-8.2)
--- NOTE | 2018-07-01 12:42 | CON.ID ---
Consult Consult Specialty:: infectious diseases Referred by:: Reason for Consultation:: pneumonia,sepsis - History of Present Illness Chief Complaint: MR History of Present Illness: Patient is a 28 yo male w/ pmh of cerebral palsy, seizures, epilepsy, recurrent aspiration pneumonia, scoliosis, PEG tube BIBEMS from [facility] who presents with temperature of 101.8 satting 96 on RA and poor air exchange as described by physician notes from facility. The patient has recurrent aspiration pneumonia and has baseline drooling, but noticable thicker sputum. The patient at baseline is nonverbal, does not follow commands and is wheelchair bound, communicating primarily with occasional eye contact and smiles. No further history is provided. 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, Other (cerebral palsy, intellectual disability) Pulmonary: Yes: Pneumonia Renal/: Yes: UTI (recent enterococcal uti- 03/2018) - Alcohol/Substance Use Hx Alcohol Use: No - Smoking History Smoking history: Never smoked Have you smoked in the past 12 months: No - Social History Usual Living Arrangement: Fdc ADL: Support Services History of Recent Travel: No Home Medications - Allergies Allergies/Adverse Reactions: Allergies Allergy/AdvReac Type Severity Reaction Status Date / Time albuterol Allergy Verified 06/30/18 12:44 Cephalosporins Allergy Verified 06/30/18 12:44 latex Allergy Verified 06/30/18 12:44 Penicillins Allergy Verified 06/30/18 12:44 shrimp Allergy Verified 06/30/18 12:44 wool Allergy Verified 06/30/18 12:44 - Home Medications Home Medications: Ambulatory Orders Clobazam [Onfi -] 10 mg GT 11/23/17 Diazepam [Diastat] 10 mg RC ONCE PRN 11/23/17 Fluticasone Prop 0.05% Nasal [Flonase -] 2 spray NS 11/23/17 Lorazepam [Ativan] 1 mg GT ASDIR PRN 11/23/17 Polyethylene Glycol 3350 [Miralax 119 gm Btl -] 17 gm GT ASDIR 11/23/17 Rufinamide [Banzel] 1,600 mg GT BID 11/23/17 Zonisamide [Zonegran -] 50 mg GT HS 11/23/17 Zonisamide [Zonegran] 200 mg GT TID 11/23/17 Topiramate [Topamax] 300 mg GT DAILY 02/14/18 Carbamazepine 300 mg GT DAILY 04/02/18 Ipratropium 0.02% Nebulizer [Atrovent 0.02% Nebulizer -] 1 amp IH QID PRN Topiramate [Qudexy Xr] 400 mg GT HS 04/02/18 Carbamazepine 400 mg GT AM 04/03/18 Carbamazepine 400 mg GT HS 04/03/18 Silver Sulfadiazine 1% Top Cr 1 appful TP TID 04/22/18 Clobazam [Onfi -] 5 mg GT DAILY 04/23/18 EPINEPHrine (EPI-PEN 0.3MG) [Epipen 0.3MG -] 0.3 mg IM ASDIR 04/23/18 Hydrocolloid Dressing [Duoderm Cgf] 1 applic TP DAILY PRN 04/23/18 Levofloxacin [Levaquin] 500 mg PO DAILY #4 tablet 04/26/18 Sulfamethoxazole/Trimethoprim [Bactrim Ds -] 1 tab PO BID #14 tablet 06/07/18 Review of Systems Unable to obtain ROS, reason: unable to obtain Physical Exam Vital Signs: Vital Signs Temperature 98.6 F 07/01/18 05:58 Pulse Rate 92 H 07/01/18 05:58 Respiratory Rate 20 07/01/18 05:58 Blood Pressure 139/74 07/01/18 05:58 O2 Sat by Pulse Oximetry (%) 100 06/30/18 21:16 Constitutional: Yes: Calm, Other Eyes: Yes: Conjunctiva Clear Cardiovascular: Yes: Regular Rate and Rhythm Respiratory: Yes: Poor Air Entry, Rhonchi Gastrointestinal: Yes: Normal Bowel Sounds, Soft, Other (peg in place) Musculoskeletal: Yes: Other (contracted) Extremities: Yes: Other Neurological: Yes: Alert, Other Labs: CBC, BMP 07/01/18 10:17 07/01/18 10:17 Imaging - Results Chest X-ray: Report Reviewed, Image Reviewed Assessment/Plan Problem List - Problems (1) Pneumonia Code(s): J18.9 - PNEUMONIA, UNSPECIFIED ORGANISM (2) Cerebral palsy Code(s): G80.9 - CEREBRAL PALSY, UNSPECIFIED (3) Functional quadriplegia Code(s): R53.2 - FUNCTIONAL QUADRIPLEGIA (4) Respiratory distress Code(s): R06.03 - ACUTE RESPIRATORY DISTRESS (5) Scoliosis Code(s): M41.9 - SCOLIOSIS, UNSPECIFIED (6) Seizure Code(s): R56.9 - UNSPECIFIED CONVULSIONS plan will start patient on vanco and aztreonam iv fluids rest as per the team hold peg tube feeding for now
[2018-07-01] MEDS: cloBAZam 10 MG TABLET PO SCH (15:11)
[2018-07-01] MEDS: AZTREONAM 1 GM in DEXTROSE 5%-WATER - 50 ML IVPB SCH ×2 (15:19→18:28)
[2018-07-01] MEDS: VANCOMYCIN 1,250 MG in DEXTROSE 5%-WATER - 250 ML IVPB SCH (15:19)
[2018-07-01] MEDS: SODIUM CHLORIDE 1,000 ML IV SCH (15:20)
--- NOTE | 2018-07-01 18:08 | PN ---
Progress Note, Physician History of Present Illness: stable - Current Medication List Current Medications: Active Medications Carbamazepine (Tegretol Oral Suspension -) 400 mg GT AM BRAD Last Admin: 07/01/18 06:49 Dose: 400 mg Carbamazepine (Tegretol Oral Suspension -) 400 mg GT HS BRAD Last Admin: 06/30/18 22:00 Dose: Not Given Clobazam (Onfi -) 10 mg GT HS BRAD Last Admin: 07/01/18 06:49 Dose: Not Given Clobazam (Onfi -) 5 mg PO DAILY BRAD Last Admin: 07/01/18 15:11 Dose: 5 mg Sodium Chloride (Normal Saline -) 1,000 mls @ 0 mls/hr IV ASDIR BRAD Last Admin: 07/01/18 15:20 Dose: Not Given Aztreonam 1 gm/ Dextrose 50 mls @ 100 mls/hr IVPB Q8H-IV BRAD; Protocol Last Admin: 07/01/18 15:19 Dose: 100 mls/hr Vancomycin HCl 1,250 mg/ (Dextrose) 250 mls @ 250 mls/2 hr IVPB Q24H BRAD; Protocol Last Admin: 07/01/18 15:19 Dose: 250 mls/2 hr Lorazepam (Ativan Injection -) 1 mg IVPUSH Q6H PRN PRN Reason: seizures Last Admin: 07/01/18 10:50 Dose: 1 mg Non-Formulary Medication (Hydrocolloid Dressing [Duoderm Cgf]) 1 applic TP DAILY PRN PRN Reason: WOUND CARE Non-Formulary Medication (Rufinamide [Banzel]) 1,600 mg GT BID [facility] Polyethylene Glycol (Miralax (For Daily Use) -) 17 gm GT DAILY [facility] Last Admin: 07/01/18 10:45 Dose: Not Given Topiramate (Topamax -) 300 mg GT DAILY BRAD Last Admin: 07/01/18 10:13 Dose: 300 mg Zonisamide (Zonisamide) 200 mg GT TID BRAD Last Admin: 07/01/18 16:14 Dose: 200 mg Zonisamide (Zonisamide) 50 mg GT HS [facility] Last Admin: 07/01/18 06:50 Dose: Not Given - Objective Vital Signs: Vital Signs Temperature 97.8 F 07/01/18 17:27 Pulse Rate 98 H 07/01/18 17:27 Respiratory Rate 18 07/01/18 17:27 Blood Pressure 108/57 L 07/01/18 17:27 O2 Sat by Pulse Oximetry (%) 100 07/01/18 09:00 Constitutional: Yes: No Distress HENT: Yes: Atraumatic Neck: Yes: Supple Cardiovascular: Yes: Regular Rate and Rhythm Respiratory: Yes: Rales, Rhonchi Gastrointestinal: Yes: Normal Bowel Sounds Extremities: Yes: WNL Edema: No Peripheral Pulses WNL: Yes Neurological: Yes: Alert Labs: CBC, BMP 07/01/18 10:17 07/01/18 10:17 INR, PTT INR 1.11 (0.83-1.09) H 06/30/18 14:41 Problem List - Problems (1) Pneumonia Assessment/Plan: iv abx cxs sent frequenty suctions Code(s): J18.9 - PNEUMONIA, UNSPECIFIED ORGANISM (2) Cerebral palsy Code(s): G80.9 - CEREBRAL PALSY, UNSPECIFIED (3) Functional quadriplegia Code(s): R53.2 - FUNCTIONAL QUADRIPLEGIA (4) Respiratory distress Code(s): R06.03 - ACUTE RESPIRATORY DISTRESS (5) Scoliosis Code(s): M41.9 - SCOLIOSIS, UNSPECIFIED (6) Seizure Assessment/Plan: continue home meds Code(s): R56.9 - UNSPECIFIED CONVULSIONS
[2018-07-01] MEDS ORDERED: LORazepam 1 MG TABLET GT PRN (19:59)
[2018-07-01 20:23] LABS: URINE APPEARANCE CLOUDY; URINE BILIRUBIN NEGATIVE (<2.0 mg/dL); URINE COLOR YELLOW; URINE GLUCOSE (UA) NEGATIVE (NEGATIVE); URINE KETONE TRACE (NEGATIVE); URINE LEUK ESTERASE TRACE (NEGATIVE); URINE NITRITE NEGATIVE (NEGATIVE); URINE PROTEIN NEGATIVE (NEGATIVE)
[2018-07-01 20:27] LABS: EPI CELLS RARE /HPF (FEW); URINE BACTERIA RARE /hpf (NONE SEEN); URINE MUCUS FEW
[2018-07-02] MEDS: AZTREONAM 1 GM in DEXTROSE 5%-WATER - 50 ML IVPB SCH ×3 (03:10→17:09)
[2018-07-02] MEDS: ZONISAMIDE 100 MG/10 ML ORAL SUSPENSION GT SCH ×4 (05:47→21:44)
[2018-07-02] MEDS: carBAMazepine 200 MG/10 ML UNIT-DOSE CUP GT SCH ×3 (06:26→21:44)
[2018-07-02] MEDS: POLYETHYLENE GLYCOL 3350 119 GM BTL GT SCH (10:17)
[2018-07-02] MEDS: cloBAZam 10 MG TABLET PO SCH (10:17)
[2018-07-02] MEDS: TOPIRAMATE 100 MG TABLET GT SCH (10:18)
[2018-07-02] MEDS: SODIUM CHLORIDE 1,000 ML IV SCH (13:28)
[2018-07-02] MEDS ORDERED: ALBUTEROL SO4 2.5/IPRATROPIUM 0.5 INH SOL 3 ML VIAL.NEB. NEB PRN (14:26)
--- NOTE | 2018-07-02 14:28 | PN ---
Progress Note, Physician History of Present Illness: events noted tube feeds on hold order xray, gi consult - Current Medication List Current Medications: Active Medications Albuterol/Ipratropium (Duoneb -) 1 amp NEB Q4H PRN PRN Reason: SHORTNESS OF BREATH Carbamazepine (Tegretol Oral Suspension -) 400 mg GT AM [facility] Last Admin: 07/02/18 06:26 Dose: 400 mg Carbamazepine (Tegretol Oral Suspension -) 400 mg GT HS [facility] Last Admin: 07/01/18 22:18 Dose: 400 mg Carbamazepine (Tegretol Oral Suspension -) 300 mg GT DAILY@1400 [facility] Last Admin: 07/02/18 13:29 Dose: 300 mg Clobazam (Onfi -) 10 mg GT HS [facility] Last Admin: 07/01/18 22:18 Dose: 10 mg Clobazam (Onfi -) 5 mg PO DAILY [facility] Last Admin: 07/02/18 10:17 Dose: 5 mg Sodium Chloride (Normal Saline -) 1,000 mls @ 0 mls/hr IV ASDIR [facility] Last Admin: 07/02/18 13:28 Dose: Not Given Aztreonam 1 gm/ Dextrose 50 mls @ 100 mls/hr IVPB Q8H-IV [facility]; Protocol Last Admin: 07/02/18 10:17 Dose: 100 mls/hr Vancomycin HCl 1,250 mg/ (Dextrose) 250 mls @ 250 mls/2 hr IVPB Q24H [facility]; Protocol Last Admin: 07/01/18 15:19 Dose: 250 mls/2 hr Lorazepam (Ativan Injection -) 1 mg IVPUSH Q6H PRN PRN Reason: seizures Last Admin: 07/01/18 10:50 Dose: 1 mg Lorazepam (Ativan -) 1 mg GT Q6H PRN PRN Reason: seizure Non-Formulary Medication (Hydrocolloid Dressing [Duoderm Cgf]) 1 applic TP DAILY PRN PRN Reason: WOUND CARE Non-Formulary Medication (Rufinamide [Banzel]) 1,600 mg GT BID [facility] Polyethylene Glycol (Miralax (For Daily Use) -) 17 gm GT DAILY [facility] Last Admin: 07/02/18 10:17 Dose: 17 gm Topiramate (Topamax -) 300 mg GT DAILY [facility] Last Admin: 07/02/18 10:18 Dose: 300 mg Zonisamide (Zonisamide) 200 mg GT TID [facility] Last Admin: 07/02/18 13:29 Dose: 200 mg Zonisamide (Zonisamide) 50 mg GT HS [facility] Last Admin: 07/01/18 22:22 Dose: 50 mg - Objective Vital Signs: Vital Signs Temperature 97.4 F L 07/02/18 14:21 Pulse Rate 86 07/02/18 14:21 Respiratory Rate 20 07/02/18 14:21 Blood Pressure 115/63 07/02/18 14:21 O2 Sat by Pulse Oximetry (%) 95 07/02/18 09:00 Constitutional: Yes: Calm HENT: Yes: Atraumatic Neck: Yes: Supple Cardiovascular: Yes: Regular Rate and Rhythm Respiratory: Yes: Rhonchi Gastrointestinal: Yes: Other (peg in place) Extremities: Yes: WNL Edema: No Peripheral Pulses WNL: Yes Neurological: Yes: Alert, Oriented Labs: CBC, BMP 07/01/18 10:17 07/01/18 10:17 INR, PTT INR 1.11 (0.83-1.09) H 06/30/18 14:41 Problem List - Problems (1) Pneumonia Assessment/Plan: iv abx cxs sent frequenty suctions id on board Code(s): J18.9 - PNEUMONIA, UNSPECIFIED ORGANISM (2) Cerebral palsy Code(s): G80.9 - CEREBRAL PALSY, UNSPECIFIED Qualifiers: Cerebral palsy type: unspecified type Qualified Code(s): G80.9 - Cerebral palsy, unspecified (3) Functional quadriplegia Code(s): R53.2 - FUNCTIONAL QUADRIPLEGIA (4) Respiratory distress Code(s): R06.03 - ACUTE RESPIRATORY DISTRESS (5) Scoliosis Code(s): M41.9 - SCOLIOSIS, UNSPECIFIED Qualifiers: Scoliosis type: unspecified scoliosis Spinal region: thoracolumbar Qualified Code(s): M41.9 - Scoliosis, unspecified (6) Seizure Assessment/Plan: continue home meds Code(s): R56.9 - UNSPECIFIED CONVULSIONS (7) Aspiration of gastric contents Code(s): T17.910A - GASTRIC CONTENTS IN RESP TRACT, PART UNSP CAUSE ASPHYX, INIT Qualifiers: Encounter type: sequela Qualified Code(s): T17.910S - Gastric contents in respiratory tract, part unspecified causing asphyxiation, sequela (8) Aspiration pneumonia Assessment/Plan: feeds on hold Code(s): J69.0 - PNEUMONITIS DUE TO INHALATION OF FOOD AND VOMIT (9) Atelectasis of left lung Code(s): J98.11 - ATELECTASIS (10) SOB (shortness of breath) Code(s): R06.02 - SHORTNESS OF BREATH Assessment/Plan hold tube feeds consult dieticin and gi to assess peg tube
[2018-07-02] MEDS: VANCOMYCIN 1,250 MG in DEXTROSE 5%-WATER - 250 ML IVPB SCH (14:42)
[2018-07-02] MEDS ORDERED: LEVALBUTEROL HCL 0.63 MG/3 ML VIAL.NEB. IH ONE (15:30)
[2018-07-02] MEDS ORDERED: PT OWN MED DRAWER 7, Y5N ONE (17:03)
--- NOTE | 2018-07-02 18:39 | CON.NEURO ---
Consult Consult Specialty:: NEUROLOGY-[facility] Reason for Consultation:: Seizures - History of Present Illness History of Present Illness: 28 yo male w/ pmh of cerebral palsy, seizures, epilepsy, recurrent aspiration pneumonia, scoliosis, PEG tube BIBEMS from [facility] who presents with temperature of 101.8 satting 96 on RA and poor air exchange as described by physician notes from facility. The patient has recurrent aspiration pneumonia and has baseline drooling, but noticable thicker sputum. The patient at baseline is nonverbal, does not follow commands and is wheelchair bound, communicating primarily with occasional eye contact and smiles. No further history is provided. Pt. 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 No seizures documented in hospital, appears comfortable. Na+ 129, 133 - Past Medical History [employer]: Yes: Seizure, Other (cerebral palsy, intellectual disability) Pulmonary: Yes: Pneumonia Renal/: Yes: UTI (recent enterococcal uti- 03/2018) - Alcohol/Substance Use Hx Alcohol Use: No - Smoking History Smoking history: Never smoked Have you smoked in the past 12 months: No - Social History Usual Living Arrangement: Senior Care ADL: Support Services History of Recent Travel: No Home Medications - Allergies Allergies/Adverse Reactions: Allergies Allergy/AdvReac Type Severity Reaction Status Date / Time albuterol Allergy Verified 06/30/18 12:44 Cephalosporins Allergy Verified 06/30/18 12:44 latex Allergy Verified 06/30/18 12:44 Penicillins Allergy Verified 06/30/18 12:44 shrimp Allergy Verified 06/30/18 12:44 wool Allergy Verified 06/30/18 12:44 - Home Medications Home Medications: Ambulatory Orders Clobazam [Onfi -] 10 mg GT 11/23/17 Diazepam [Diastat] 10 mg RC ONCE PRN 11/23/17 Fluticasone Prop 0.05% Nasal [Flonase -] 2 spray NS 11/23/17 Lorazepam [Ativan] 1 mg GT ASDIR PRN 11/23/17 Polyethylene Glycol 3350 [Miralax 119 gm Btl -] 17 gm GT ASDIR 11/23/17 Rufinamide [Banzel] 1,600 mg GT BID 11/23/17 Zonisamide [Zonegran -] 50 mg GT HS 11/23/17 Zonisamide [Zonegran] 200 mg GT TID 11/23/17 Topiramate [Topamax] 300 mg GT DAILY 02/14/18 Carbamazepine 300 mg GT DAILY 04/02/18 Ipratropium 0.02% Nebulizer [Atrovent 0.02% Nebulizer -] 1 amp IH QID PRN Topiramate [Qudexy Xr] 400 mg GT HS 04/02/18 Carbamazepine 400 mg GT AM 04/03/18 Carbamazepine 400 mg GT HS 04/03/18 Silver Sulfadiazine 1% Top Cr 1 appful TP TID 04/22/18 Clobazam [Onfi -] 5 mg GT DAILY 04/23/18 EPINEPHrine (EPI-PEN 0.3MG) [Epipen 0.3MG -] 0.3 mg IM ASDIR 04/23/18 Hydrocolloid Dressing [Duoderm Cgf] 1 applic TP DAILY PRN 04/23/18 Levofloxacin [Levaquin] 500 mg PO DAILY #4 tablet 04/26/18 Sulfamethoxazole/Trimethoprim [Bactrim Ds -] 1 tab PO BID #14 tablet 06/07/18 Physical Exam-Neuro Vital Signs: Vital Signs Temperature 97.4 F L 07/02/18 17:35 Pulse Rate 85 07/02/18 17:35 Respiratory Rate 18 07/02/18 17:35 Blood Pressure 111/65 07/02/18 17:35 O2 Sat by Pulse Oximetry (%) 95 07/02/18 09:00 Labs: CBC, BMP 07/01/18 10:17 07/01/18 10:17 INR, PTT INR 1.11 (0.83-1.09) H 06/30/18 14:41 - Neuro Exam Level Of Consciousness: Yes: Alert (Awake, alert, non-verbal, ) Mini Mental Exam: Does not follow commands, blinks to visual threat only Cranial Nerves II-XII Intact: No (?? slight right diminished NLF) DTR's: 2+ Right Bicep, 2+ Right Tricep, 2+ Right Brachioradialis (Increased tone JASON/LLE, decreased tone RUE/RLS), 3+ Left Bicep, 3+ Left Tricep, 3+ Left Brachioradialis Response to light touch: Abnormal (No response to touch/pain in all 4 ext) Coordination: Normal: Finger to Nose (Unable to test) Motor Strength: 0/5: Left Arm, Right Arm, Left Leg, Right Leg Gait: Other (Not testable-quadriplegic) Assessment/Plan Pt. with CP, Quadriplegia, intractible epilepsy syndrome. Would cont. all current meds as he appears to be stable. He has mild hyponatremia that may be due to Carbamazepine but this may be a chronic issue, I will attempt to contact his residence to find out. Thanks, Stacie Chapman MD
[2018-07-02] MEDS: cloBAZam 10 MG TABLET GT SCH (21:44)
[2018-07-03] MEDS: AZTREONAM 1 GM in DEXTROSE 5%-WATER - 50 ML IVPB SCH ×3 (02:12→18:20)
[2018-07-03] MEDS: ZONISAMIDE 100 MG/10 ML ORAL SUSPENSION GT SCH ×4 (06:02→23:24)
[2018-07-03] MEDS: carBAMazepine 200 MG/10 ML UNIT-DOSE CUP GT SCH ×3 (06:03→21:56)
--- NOTE | 2018-07-03 10:08 | CON.GI ---
Consult Consult Specialty:: GI Referred by:: Dr. Maria Reason for Consultation:: Aspiration Pneumonia - History of Present Illness Chief Complaint: patient non-verbal History of Present Illness: 28[address] for evaluation of low O2 saturations. Called to evaluate for for G-Tube. Edouard has an existing low profile 18Fr. G-tube that appears to be functioning. The medical record states that he has a history of recurrent aspiration. He received 100cc of feeds hourly at the intermediate along with 75cc of water flush hourly for total of 175cc/hr through G-Tube. 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: Seizure, Other (cerebral palsy, intellectual disability) Pulmonary: Yes: Pneumonia Renal/: Yes: UTI (recent enterococcal uti- 03/2018) - Past Surgical History Additional Surgical History: G-Tube placement, spinal surgery - Alcohol/Substance Use Hx Alcohol Use: No - Smoking History Smoking history: Never smoked Have you smoked in the past 12 months: No - Social History Usual Living Arrangement: Care Home ADL: Support Services Place of : [facility] History of Recent Travel: No Home Medications - Allergies Allergies/Adverse Reactions: Allergies Allergy/AdvReac Type Severity Reaction Status Date / Time albuterol Allergy Verified 06/30/18 12:44 Cephalosporins Allergy Verified 06/30/18 12:44 latex Allergy Verified 06/30/18 12:44 Penicillins Allergy Verified 06/30/18 12:44 shrimp Allergy Verified 06/30/18 12:44 wool Allergy Verified 06/30/18 12:44 - Home Medications Home Medications: Ambulatory Orders Clobazam [Onfi -] 10 mg GT 11/23/17 Diazepam [Diastat] 10 mg RC ONCE PRN 11/23/17 Fluticasone Prop 0.05% Nasal [Flonase -] 2 spray NS HS 11/23/17 Lorazepam [Ativan] 1 mg GT ASDIR PRN 11/23/17 Polyethylene Glycol 3350 [Miralax 119 gm Btl -] 17 gm GT ASDIR 11/23/17 Rufinamide [Banzel] 1,600 mg GT BID 11/23/17 Zonisamide [Zonegran -] 50 mg GT HS 11/23/17 Zonisamide [Zonegran] 200 mg GT TID 11/23/17 Topiramate [Topamax] 300 mg GT DAILY 02/14/18 Carbamazepine 300 mg GT DAILY 04/02/18 Ipratropium 0.02% Nebulizer [Atrovent 0.02% Nebulizer -] 1 amp IH QID PRN Topiramate [Qudexy Xr] 400 mg GT HS 04/02/18 Carbamazepine 400 mg GT AM 04/03/18 Carbamazepine 400 mg GT HS 04/03/18 Silver Sulfadiazine 1% Top Cr 1 appful TP TID 04/22/18 Clobazam [Onfi -] 5 mg GT DAILY 04/23/18 EPINEPHrine (EPI-PEN 0.3MG) [Epipen 0.3MG -] 0.3 mg IM ASDIR 04/23/18 Hydrocolloid Dressing [Duoderm Cgf] 1 applic TP DAILY PRN 04/23/18 Levofloxacin [Levaquin] 500 mg PO DAILY #4 tablet 04/26/18 Sulfamethoxazole/Trimethoprim [Bactrim Ds -] 1 tab PO BID #14 tablet 06/07/18 Family Disease History - Family Disease History Family History: Unable to Obtain Review of Systems - Review of Systems Respiratory: reports: Cough Physical Exam-GI Vital Signs: Vital Signs Temperature 98.3 F 07/03/18 10:00 Pulse Rate 96 07/03/18 10:00 Respiratory Rate 20 07/03/18 10:00 Blood Pressure 114/68 07/03/18 10:00 O2 Sat by Pulse Oximetry (%) 96 on 3L NC 07/02/18 10:00 Constitutional: Yes: Moderate Distress (coughing) Cardiovascular: Yes: Other (heart sounds obscured by upper airway noise) Respiratory: Yes: Diminished (at bases), Rhonchi Gastrointestinal Inspection: Yes: Scars (midline upper abdominal vertical surgical scar, 18Fr. low profile balloon G-Tube in left paramedian abdomen.). No: Distention ...Auscultate: Yes: Normoactive Bowel Sounds ...Palpate: No: Tenderness (No grimacing upon palpation) Edema: No (No LE edema) Neurological: Yes: Alert Labs: CBC, BMP 07/01/18 10:17 07/01/18 10:17 INR, PTT INR 1.11 (0.83-1.09) H 06/30/18 14:41 Imaging - Results X-ray: Report Reviewed Problem List - Problems (1) Pneumonia Assessment/Plan: Recurrent aspiration PNA. No indication for replacement of a G-Tube as gastrostomy tube placement does not decrease risk of aspiration. Can obtain G-Tube study under fluoro to assess position of existing G-Tube. Keep head of bed elevated 35-45 degrees at all times Follow public health professor recommendations re: tube feeds adjustments. If unable to tolerate and there is still concern of significant aspiration, consider surgical consult to discuss jejunostomy placement for more distal feedings. Code(s): J18.9 - PNEUMONIA, UNSPECIFIED ORGANISM
[2018-07-03] MEDS: POLYETHYLENE GLYCOL 3350 119 GM BTL GT SCH (10:36)
[2018-07-03] MEDS: TOPIRAMATE 100 MG TABLET GT SCH (10:36)
[2018-07-03] MEDS: cloBAZam 10 MG TABLET PO SCH (10:36)
[2018-07-03] MEDS: VANCOMYCIN 1,250 MG in DEXTROSE 5%-WATER - 250 ML IVPB SCH (14:38)
--- NOTE | 2018-07-03 15:48 | PN ---
Progress Note, Physician History of Present Illness: stable patient going for peg tube adjustment - Current Medication List Current Medications: Active Medications Carbamazepine (Tegretol Oral Suspension -) 400 mg GT AM [facility] Last Admin: 07/03/18 06:03 Dose: 400 mg Carbamazepine (Tegretol Oral Suspension -) 400 mg GT HS [facility] Last Admin: 07/02/18 21:44 Dose: 400 mg Carbamazepine (Tegretol Oral Suspension -) 300 mg GT DAILY@1400 [facility] Last Admin: 07/03/18 14:38 Dose: 300 mg Clobazam (Onfi -) 10 mg GT HS [facility] Last Admin: 07/02/18 21:44 Dose: 10 mg Clobazam (Onfi -) 5 mg PO DAILY [facility] Last Admin: 07/03/18 10:36 Dose: 5 mg Sodium Chloride (Normal Saline -) 1,000 mls @ 0 mls/hr IV ASDIR [facility] Last Admin: 07/02/18 13:28 Dose: Not Given Aztreonam 1 gm/ Dextrose 50 mls @ 100 mls/hr IVPB Q8H-IV [facility]; Protocol Last Admin: 07/03/18 10:35 Dose: 100 mls/hr Vancomycin HCl 1,250 mg/ (Dextrose) 250 mls @ 250 mls/2 hr IVPB Q24H [facility]; Protocol Last Admin: 07/03/18 14:38 Dose: 250 mls/2 hr Lorazepam (Ativan Injection -) 1 mg IVPUSH Q6H PRN PRN Reason: seizures Last Admin: 07/01/18 10:50 Dose: 1 mg Lorazepam (Ativan -) 1 mg GT Q6H PRN PRN Reason: seizure Non-Formulary Medication (Hydrocolloid Dressing [Duoderm Cgf]) 1 applic TP DAILY PRN PRN Reason: WOUND CARE Non-Formulary Medication (Rufinamide [Banzel]) 1,600 mg GT BID [facility] Polyethylene Glycol (Miralax (For Daily Use) -) 17 gm GT DAILY [facility] Last Admin: 07/03/18 10:36 Dose: 17 gm Topiramate (Topamax -) 300 mg GT DAILY [facility] Last Admin: 07/03/18 10:36 Dose: 300 mg Zonisamide (Zonisamide) 200 mg GT TID [facility] Last Admin: 07/03/18 06:02 Dose: 200 mg Zonisamide (Zonisamide) 50 mg GT HS [facility] Last Admin: 07/02/18 21:44 Dose: 50 mg - Objective Vital Signs: Vital Signs Temperature 98.5 F 07/03/18 14:29 Pulse Rate 84 07/03/18 14:29 Respiratory Rate 20 07/03/18 14:29 Blood Pressure 104/64 07/03/18 14:29 O2 Sat by Pulse Oximetry (%) 98 07/02/18 21:00 Constitutional: Yes: No Distress, Calm Cardiovascular: Yes: Regular Rate and Rhythm Respiratory: Yes: Regular, On Nasal O2, Poor Air Entry Gastrointestinal: Yes: Normal Bowel Sounds, Soft Musculoskeletal: Yes: WNL Extremities: Yes: Other Neurological: Yes: Alert, Other Psychiatric: Yes: Other Labs: CBC, BMP 07/01/18 10:17 07/01/18 10:17 INR, PTT INR 1.11 (0.83-1.09) H 06/30/18 14:41 Assessment/Plan Problem List - Problems (1) Pneumonia Code(s): J18.9 - PNEUMONIA, UNSPECIFIED ORGANISM (2) Cerebral palsy Code(s): G80.9 - CEREBRAL PALSY, UNSPECIFIED (3) Functional quadriplegia Code(s): R53.2 - FUNCTIONAL QUADRIPLEGIA (4) Respiratory distress Code(s): R06.03 - ACUTE RESPIRATORY DISTRESS (5) Scoliosis Code(s): M41.9 - SCOLIOSIS, UNSPECIFIED (6) Seizure Code(s): R56.9 - UNSPECIFIED CONVULSIONS plan continue abx monitor closely resp support rest as per team
[2018-07-03] MEDS ORDERED: DEXTROSE 5%-0.45% SALINE 1,000 ML IV SCH (16:30)
--- NOTE | 2018-07-03 16:30 | PN ---
Progress Note, Physician History of Present Illness: events noted tube feeds on hold gi input noted - Current Medication List Current Medications: Active Medications Carbamazepine (Tegretol Oral Suspension -) 400 mg GT AM [facility] Last Admin: 07/03/18 06:03 Dose: 400 mg Carbamazepine (Tegretol Oral Suspension -) 400 mg GT HS [facility] Last Admin: 07/02/18 21:44 Dose: 400 mg Carbamazepine (Tegretol Oral Suspension -) 300 mg GT DAILY@1400 [facility] Last Admin: 07/03/18 14:38 Dose: 300 mg Clobazam (Onfi -) 10 mg GT HS [facility] Last Admin: 07/02/18 21:44 Dose: 10 mg Clobazam (Onfi -) 5 mg PO DAILY [facility] Last Admin: 07/03/18 10:36 Dose: 5 mg Sodium Chloride (Normal Saline -) 1,000 mls @ 0 mls/hr IV ASDIR [facility] Last Admin: 07/02/18 13:28 Dose: Not Given Aztreonam 1 gm/ Dextrose 50 mls @ 100 mls/hr IVPB Q8H-IV [facility]; Protocol Last Admin: 07/03/18 10:35 Dose: 100 mls/hr Vancomycin HCl 1,250 mg/ (Dextrose) 250 mls @ 250 mls/2 hr IVPB Q24H [facility]; Protocol Last Admin: 07/03/18 14:38 Dose: 250 mls/2 hr Dextrose/Sodium Chloride (D5-1/2ns -) 1,000 mls @ 75 mls/hr IV ASDIR [facility] Lorazepam (Ativan Injection -) 1 mg IVPUSH Q6H PRN PRN Reason: seizures Last Admin: 07/01/18 10:50 Dose: 1 mg Lorazepam (Ativan -) 1 mg GT Q6H PRN PRN Reason: seizure Non-Formulary Medication (Hydrocolloid Dressing [Duoderm Cgf]) 1 applic TP DAILY PRN PRN Reason: WOUND CARE Non-Formulary Medication (Rufinamide [Banzel]) 1,600 mg GT BID [facility] Polyethylene Glycol (Miralax (For Daily Use) -) 17 gm GT DAILY [facility] Last Admin: 07/03/18 10:36 Dose: 17 gm Topiramate (Topamax -) 300 mg GT DAILY [facility] Last Admin: 07/03/18 10:36 Dose: 300 mg Zonisamide (Zonisamide) 200 mg GT TID [facility] Last Admin: 07/03/18 06:02 Dose: 200 mg Zonisamide (Zonisamide) 50 mg GT HS [facility] Last Admin: 07/02/18 21:44 Dose: 50 mg - Objective Vital Signs: Vital Signs Temperature 98.5 F 07/03/18 14:29 Pulse Rate 84 07/03/18 14:29 Respiratory Rate 20 07/03/18 14:29 Blood Pressure 104/64 07/03/18 14:29 O2 Sat by Pulse Oximetry (%) 98 07/02/18 21:00 Constitutional: Yes: Calm HENT: Yes: Atraumatic Neck: Yes: Supple Cardiovascular: Yes: Regular Rate and Rhythm Respiratory: Yes: Rhonchi Gastrointestinal: Yes: Normal Bowel Sounds Extremities: Yes: Deformity Edema: No Neurological: Yes: Other (awake) Labs: CBC, BMP 07/01/18 10:17 07/01/18 10:17 INR, PTT INR 1.11 (0.83-1.09) H 06/30/18 14:41 Problem List - Problems (1) Pneumonia Assessment/Plan: iv abx frequenty suctions id on board Code(s): J18.9 - PNEUMONIA, UNSPECIFIED ORGANISM (2) Cerebral palsy Code(s): G80.9 - CEREBRAL PALSY, UNSPECIFIED Qualifiers: Cerebral palsy type: unspecified type Qualified Code(s): G80.9 - Cerebral palsy, unspecified (3) Functional quadriplegia Code(s): R53.2 - FUNCTIONAL QUADRIPLEGIA (4) Respiratory distress Code(s): R06.03 - ACUTE RESPIRATORY DISTRESS (5) Scoliosis Code(s): M41.9 - SCOLIOSIS, UNSPECIFIED Qualifiers: Scoliosis type: unspecified scoliosis Spinal region: thoracolumbar Qualified Code(s): M41.9 - Scoliosis, unspecified (6) Seizure Assessment/Plan: continue home meds Code(s): R56.9 - UNSPECIFIED CONVULSIONS (7) Aspiration of gastric contents Code(s): T17.910A - GASTRIC CONTENTS IN RESP TRACT, PART UNSP CAUSE ASPHYX, INIT Qualifiers: Encounter type: sequela Qualified Code(s): T17.910S - Gastric contents in respiratory tract, part unspecified causing asphyxiation, sequela (8) Aspiration pneumonia Code(s): J69.0 - PNEUMONITIS DUE TO INHALATION OF FOOD AND VOMIT (9) Atelectasis of left lung Code(s): J98.11 - ATELECTASIS (10) Gastrostomy tube dependent Code(s): Z93.1 - GASTROSTOMY STATUS Assessment/Plan start tube feeds at 20 ml per hour
[2018-07-03] MEDS ORDERED: PT OWN MED DRAWER 7, Y5N ONE ×2 (17:46→23:15)
[2018-07-03] MEDS: SODIUM CHLORIDE 1,000 ML IV SCH (19:24)
[2018-07-03] MEDS: cloBAZam 10 MG TABLET GT SCH (21:56)
[2018-07-04] MEDS: AZTREONAM 1 GM in DEXTROSE 5%-WATER - 50 ML IVPB SCH ×3 (02:55→17:13)
[2018-07-04] MEDS: ZONISAMIDE 100 MG/10 ML ORAL SUSPENSION GT SCH ×4 (05:42→22:24)
[2018-07-04] MEDS: carBAMazepine 200 MG/10 ML UNIT-DOSE CUP GT SCH ×3 (06:02→21:15)
[2018-07-04] MEDS ORDERED: PT OWN MED DRAWER 7, Y5N ONE ×2 (09:01→15:57)
[2018-07-04] MEDS: POLYETHYLENE GLYCOL 3350 119 GM BTL GT SCH (09:06)
[2018-07-04] MEDS: TOPIRAMATE 100 MG TABLET GT SCH (09:06)
[2018-07-04] MEDS: cloBAZam 10 MG TABLET PO SCH (09:07)
[2018-07-04 12:34] LABS: BASO % 0.6 % (0-2.0); EOS % 1.3 % (0-4.5); HEMATOCRIT 39.9 % (35.4-49); HEMOGLOBIN 14.1 GM/dL (11.7-16.9); LYMPH % 30.2 % (8-40); MCH 33.7 pg (25.7-33.7); MCHC 35.2 g/dl (32.0-35.9); MEAN CELL VOLUME 95.7 fl (80-96); MEAN PLT VOLUME 7.1 fl (7.5-11.1); MONO % 8.3 % (3.8-10.2); NEUT % 59.6 % (42.8-82.8); PLATELET COUNT 158 K/MM3 (134-434); RBC 4.16 M/mm3 (4.00-5.60); WHITE BLOOD COUNT 5.4 K/mm3 (4.0-10.0)
--- NOTE | 2018-07-04 12:41 | PN ---
Progress Note, Physician History of Present Illness: patient improving breathing a bit better - Current Medication List Current Medications: Active Medications Carbamazepine (Tegretol Oral Suspension -) 300 mg GT DAILY@1400 [facility] Last Admin: 07/03/18 14:38 Dose: 300 mg Carbamazepine (Tegretol Oral Suspension -) 400 mg GT BID@0700,2200 [facility] Last Admin: 07/04/18 06:02 Dose: 400 mg Clobazam (Onfi -) 10 mg GT HS [facility] Last Admin: 07/03/18 21:56 Dose: 10 mg Clobazam (Onfi -) 5 mg PO DAILY [facility] Last Admin: 07/04/18 09:07 Dose: 5 mg Aztreonam 1 gm/ Dextrose 50 mls @ 100 mls/hr IVPB Q8H-IV [facility]; Protocol Last Admin: 07/04/18 09:06 Dose: 100 mls/hr Vancomycin HCl 1,250 mg/ (Dextrose) 250 mls @ 250 mls/2 hr IVPB Q24H [facility]; Protocol Last Admin: 07/03/18 14:38 Dose: 250 mls/2 hr Lorazepam (Ativan Injection -) 1 mg IVPUSH Q6H PRN PRN Reason: seizures Last Admin: 07/01/18 10:50 Dose: 1 mg Lorazepam (Ativan -) 1 mg GT Q6H PRN PRN Reason: seizure Non-Formulary Medication (Rufinamide [Banzel]) 1,600 mg GT BID [facility] Polyethylene Glycol (Miralax (For Daily Use) -) 17 gm GT DAILY [facility] Last Admin: 07/04/18 09:06 Dose: 17 gm Topiramate (Topamax -) 300 mg GT DAILY [facility] Last Admin: 07/04/18 09:06 Dose: 300 mg Zonisamide (Zonisamide) 200 mg GT TID [facility] Last Admin: 07/04/18 05:42 Dose: 200 mg Zonisamide (Zonisamide) 50 mg GT HS [facility] Last Admin: 07/03/18 23:24 Dose: 50 mg - Objective Vital Signs: Vital Signs Temperature 98.2 F 07/04/18 10:00 Pulse Rate 94 H 07/04/18 10:00 Respiratory Rate 20 07/04/18 10:00 Blood Pressure 107/70 07/04/18 10:00 O2 Sat by Pulse Oximetry (%) 97 07/04/18 09:00 Constitutional: Yes: No Distress, Calm Cardiovascular: Yes: Regular Rate and Rhythm Respiratory: Yes: On Nasal O2 Gastrointestinal: Yes: Normal Bowel Sounds, Soft, Other (peg in place) Musculoskeletal: Yes: WNL Extremities: Yes: WNL Neurological: Yes: Alert, Other Labs: CBC, BMP 07/04/18 12:12 INR, PTT INR 1.11 (0.83-1.09) H 06/30/18 14:41 Assessment/Plan Problem List - Problems (1) Pneumonia Code(s): J18.9 - PNEUMONIA, UNSPECIFIED ORGANISM (2) Cerebral palsy Code(s): G80.9 - CEREBRAL PALSY, UNSPECIFIED (3) Functional quadriplegia Code(s): R53.2 - FUNCTIONAL QUADRIPLEGIA (4) Respiratory distress Code(s): R06.03 - ACUTE RESPIRATORY DISTRESS (5) Scoliosis Code(s): M41.9 - SCOLIOSIS, UNSPECIFIED (6) Seizure Code(s): R56.9 - UNSPECIFIED CONVULSIONS plan continue abx monitor closely resp support rest as per team
[2018-07-04 13:07] LABS: ALBUMIN 3.4 g/dl (3.4-5.0); ALK PHOS 135 U/L (45-117); ANION GAP 6 MMOL/L (8-16); BILIRUBIN,TOTAL 0.4 mg/dL (0.2-1); BLOOD UREA NITROGEN 7 mg/dL (7-18); CALCIUM 8.3 mg/dL (8.5-10.1); CHLORIDE 102 mmol/L (98-107); CO2 27 mmol/L (21-32); CREATININE 0.3 mg/dL (0.55-1.3); GLUCOSE,RANDOM 78 mg/dL (74-106); POTASSIUM 3.8 mmol/L (3.5-5.1); SGOT/AST 17 U/L (15-37); SGPT/ALT 31 U/L (13-61); SODIUM 135 mmol/L (136-145); TOT PROT 7.1 g/dl (6.4-8.2)
[2018-07-04] MEDS: VANCOMYCIN 1,250 MG in DEXTROSE 5%-WATER - 250 ML IVPB SCH (13:26)
--- NOTE | 2018-07-04 14:44 | PN ---
Progress Note (short form) - Note Progress Note: PULMONARY CONSULTATION DICTATED 07/04/18 IMP RESPIRATORY DISTRESS PNEUMONIA LIKELY RECURRENT ASPIRATION LEFT LUNG CONSOLIDATION/ATELECTASIS SEIZURES CEREBRAL PALSY MENTAL RETARDATION SEVERE SCOLIOSIS PLAN ABX PER ID INHALED BRONCHODILATORS MEDROL O2 ASPIRATION PRECAUTIONS F/U CHEST X-RAY FREQUENT SUCTIONING NPO DR [place] Problem List - Problems (1) Atelectasis of left lung Code(s): J98.11 - ATELECTASIS (2) Pneumonia Code(s): J18.9 - PNEUMONIA, UNSPECIFIED ORGANISM (3) Allergy to multiple antibiotics Code(s): Z88.1 - ALLERGY STATUS TO OTHER ANTIBIOTIC AGENTS STATUS (4) Cerebral palsy Code(s): G80.9 - CEREBRAL PALSY, UNSPECIFIED (5) Functional quadriplegia Code(s): R53.2 - FUNCTIONAL QUADRIPLEGIA (6) Respiratory distress Code(s): R06.03 - ACUTE RESPIRATORY DISTRESS (7) Scoliosis Code(s): M41.9 - SCOLIOSIS, UNSPECIFIED (8) Seizure Code(s): R56.9 - UNSPECIFIED CONVULSIONS (9) PNA (pneumonia) Code(s): J18.9 - PNEUMONIA, UNSPECIFIED ORGANISM Qualifiers: Pneumonia type: due to unspecified organism Laterality: unspecified laterality Lung location: unspecified part of lung Qualified Code(s): J18.9 - Pneumonia, unspecified organism (10) Aspiration pneumonia Code(s): J69.0 - PNEUMONITIS DUE TO INHALATION OF FOOD AND VOMIT (11) SOB (shortness of breath) Code(s): R06.02 - SHORTNESS OF BREATH
[2018-07-04] MEDS: DEXTROSE 5%-0.45% SALINE 1,000 ML IV SCH (14:57)
[2018-07-04] MEDS: methylPREDNISolone NA SUCC 40 MG/1 ML VIAL IVPUSH SCH ×2 (15:00→22:15)
--- NOTE | 2018-07-04 16:11 | CONS ---
DATE OF CONSULTATION: 07/04/2018 PULMONARY CONSULTATION REFERRING PHYSICIAN: Royal Maria MD History is obtained from the chart. Patient has severe mental retardation and cerebral palsy. Patient is a 78-year-old white male with past medical history of cerebral palsy, mental retardation, seizures, recurrent aspiration pneumonia, scoliosis, status post PEG, recurrent UTIs, recent Enterococcal UTI in March 2018, admitted to [facility] [place] from [facility] secondary to fever and chest congestion. Apparently, the patient was noted to have increasing congestion and thicker sputum. The patient was transferred to [facility] ER. In the ER, patient was noted to have complete opacification of the left lung, possible pneumonia versus atelectasis. He was admitted and started on broad-spectrum antibiotics. Of note, his hospitalization is significant for recently when receiving his tube feedings he was thought to develop increasing congestion and decreased O2 saturations which improved with suctioning. Earlier this afternoon, the patient was noted after feeding to have O2 desaturations and increasing chest congestion. He was placed O2, suctioned with improvement in his symptoms. PAST MEDICAL HISTORY: Again includes cerebral palsy, seizures, recurrent aspiration pneumonia, scoliosis, status post PEG, Enterococcal UTI. REVIEW OF SYSTEMS: Unable to obtain. CURRENT MEDICATIONS: Include Banzel, Zactin, vancomycin, Tegretol, Topamax, Ativan, and MiraLAX. PHYSICAL EXAMINATION: General: Patient is well-developed, well-nourished male, awake, congested, currently in no acute distress. Vital Signs: He is currently afebrile, blood pressure is 119/80, respiratory rate is 20, O2 saturation is 97% on 3 L nasal cannula. HEENT: Exam is normocephalic, atraumatic. Neck: Supple. Heart: Regular, S1, S2. Chest: Diffuse bilateral rhonchi and wheezes. Abdomen: Soft. Bowel sounds positive. Extremities: No cyanosis. Edema. LABORATORIES: WBC is 5.4, hemoglobin 14.1, hematocrit 39.9 with a platelet count 158,000. Venous blood gas with pH 7.33, PCO2 is 48, PO2 of 51. Chemistry with BUN 7, creatinine 0.3. Chest x-ray reveals almost complete opacification of left hemithorax. There is severe scoliosis of the lower thoracic and lumbar spine. IMPRESSION: Acute respiratory distress secondary to: 1. Aspiration/recurrent aspiration pneumonia. 2. Left lung atelectasis/left lung consolidation 3. Severe mental retardation. 4. Cerebral palsy. 5. Seizures. PLAN: IV antibiotics as per Infectious Disease. Inhaled bronchodilators. Start Xopenex via nebulizer. Aspiration precautions. Hold feedings. Short-course of Medrol. Obtain followup chest x-rays. Wendy GAVIN/[id number] MTDD
--- NOTE | 2018-07-04 16:15 | CONSULT ---
Consult Consult Specialty:: General Surgery Referred by:: Dr. Maria Reason for Consultation:: possible J-tube placement - History of Present Illness Chief Complaint: pt aspirating with G-tube feeds History of Present Illness: 28yoM with CP, functional quadriplegia, intellectual disability, seizure disorder/epilepsy, scoliosis s/p spinal qasim, recurrent aspiration pneumonia, has surgically placed gastrostomy tube since sometime prior to 10/09 (first visit to [facility]), dependent on GT for feeds and meds, used to live at home but is now resident at [facility], admitted a couple days ago from there with fever and sats 96% RA with thicker sputum on drooling (baseline). G-tube position was confirmed in radiology, but he has reportedly shown symptoms of recurrent aspiration with feeding, so GT feeds have been stopped. He gets all his meds and nutrition via tube. At baseline, he is nonverbal and does not follow commands, is wheelchair-bound, but occasionally makes eye contact or smiles. History is entirely from chart, as pt cannot offer any. GI had seen patient. Given concern for recurrent aspiration with gastric feeds, surgery is asked to evaluate for possible surgical jejunostomy. He is seen and examined in bed, sleeping/resting comfortably. Little response to exam, though he did open eyes toward end. He is on nasal O2 without apparent respiratory distress or labored breathing. G-tube is not in use. No family or caretakers at bedside. 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: Seizure, Other (cerebral palsy, intellectual disability) Pulmonary: Yes: Pneumonia Gastrointestinal: Yes: GERD Renal/: Yes: UTI (recent enterococcal uti- 03/2018) Musculoskeletal: Yes: Other (functional quadriplegia) - Past Surgical History Additional Surgical History: surgical G-Tube placement, spinal surgery (qasim), vagal stimulator; right femoral nail - Alcohol/Substance Use Hx Alcohol Use: No History of Substance Use: reports: None - Smoking History Smoking history: Never smoked Have you smoked in the past 12 months: No - Social History Usual Living Arrangement: Halfway ADL: Support Services History of Recent Travel: No Home Medications - Allergies Allergies/Adverse Reactions: Allergies Allergy/AdvReac Type Severity Reaction Status Date / Time albuterol Allergy Verified 06/30/18 12:44 Cephalosporins Allergy Verified 06/30/18 12:44 latex Allergy Verified 06/30/18 12:44 Penicillins Allergy Verified 06/30/18 12:44 shrimp Allergy Verified 06/30/18 12:44 wool Allergy Verified 06/30/18 12:44 - Home Medications Home Medications: Ambulatory Orders Clobazam [Onfi -] 10 mg GT HS 11/23/17 Diazepam [Diastat] 10 mg RC ONCE PRN 11/23/17 Fluticasone Prop 0.05% Nasal [Flonase -] 2 spray NS HS 11/23/17 Lorazepam [Ativan] 1 mg GT ASDIR PRN 11/23/17 Polyethylene Glycol 3350 [Miralax 119 gm Btl -] 17 gm GT ASDIR 11/23/17 Rufinamide [Banzel] 1,600 mg GT BID 11/23/17 Zonisamide [Zonegran -] 50 mg GT HS 11/23/17 Zonisamide [Zonegran] 200 mg GT TID 11/23/17 Topiramate [Topamax] 300 mg GT DAILY 02/14/18 Carbamazepine 300 mg GT DAILY 04/02/18 Ipratropium 0.02% Nebulizer [Atrovent 0.02% Nebulizer -] 1 amp IH QID PRN Topiramate [Qudexy Xr] 400 mg GT HS 04/02/18 Carbamazepine 400 mg GT AM 04/03/18 Carbamazepine 400 mg GT HS 04/03/18 Silver Sulfadiazine 1% Top Cr 1 appful TP TID 04/22/18 Clobazam [Onfi -] 5 mg GT DAILY 04/23/18 EPINEPHrine (EPI-PEN 0.3MG) [Epipen 0.3MG -] 0.3 mg IM ASDIR 04/23/18 Hydrocolloid Dressing [Duoderm Cgf] 1 applic TP DAILY PRN 04/23/18 Levofloxacin [Levaquin] 500 mg PO DAILY #4 tablet 04/26/18 Sulfamethoxazole/Trimethoprim [Bactrim Ds -] 1 tab PO BID #14 tablet 06/07/18 Family Disease History - Family Disease History Family History: Unable to Obtain (pt unresponsive) Review of Systems Unable to obtain ROS, reason: pt unresponsive Physical Exam Vital Signs: Vital Signs Temperature 97.4 F L 07/04/18 14:35 Pulse Rate 103 H 07/04/18 14:35 Respiratory Rate 20 07/04/18 14:35 Blood Pressure 119/80 07/04/18 14:35 O2 Sat by Pulse Oximetry (%) 97 07/04/18 09:00 Constitutional: Yes: Well Nourished, No Distress, Calm, Thin (lower extremities) Eyes: Yes: Conjunctiva Clear. No: Sclera Icterus HENT: Yes: Atraumatic, Normocephalic Neck: Yes: Supple, Trachea Midline Cardiovascular: Yes: Regular Rate and Rhythm, Tachycardia (slight) Respiratory: Yes: Regular, Diminished (left side - difficult to hear BS anteriorly), On Nasal O2. No: Rhonchi (clear on right but pt breathing shallowly) Gastrointestinal: Yes: Soft, Hypoactive Bowel Sounds (to normal), Other (healed upper midline scar; 18Fr low-profile gastrostomy tube in place, site clean). No : Distention, Tenderness (no apparent) ...Rectal Exam: Yes: Deferred Renal/: Yes: Incontinence (diaper on). No: Elise Present Musculoskeletal: Yes: Joint Stiffness (BLE). No: Joint Swelling Extremities: Yes: External Rotation (BLE). No: Cool, Cyanosis Edema: No Peripheral Pulses WNL: Yes Integumentary: No: Jaundice, Rash Neurological: Yes: Pre-Existing Deficit (resting/sleeping - opened eyes to stimulation, nonverbal, appears comfortable), Unresponsive. No: Alert Psychiatric: No: Alert, Agitated Labs: CBC, BMP 07/04/18 12:12 07/04/18 12:12 CMP Sodium 135 mmol/L (136-145) L 07/04/18 12:12 Potassium 3.8 mmol/L (3.5-5.1) 07/04/18 12:12 Chloride 102 mmol/L (98-107) 07/04/18 12:12 Carbon Dioxide 27 mmol/L (21-32) 07/04/18 12:12 Anion Gap 6 MMOL/L (8-16) L 07/04/18 12:12 BUN 7 mg/dL (7-18) 07/04/18 12:12 Creatinine 0.3 mg/dL (0.55-1.3) L 07/04/18 12:12 Creat Clearance w eGFR > 60 (>60) 07/04/18 12:12 Random Glucose 78 mg/dL (74-106) 07/04/18 12:12 Lactic Acid 1.0 mmol/L (0.4-2.0) 06/30/18 20:00 Calcium 8.3 mg/dL (8.5-10.1) L 07/04/18 12:12 Magnesium 1.8 mg/dL (1.8-2.4) 07/01/18 10:17 Total Bilirubin 0.4 mg/dL (0.2-1) 07/04/18 12:12 AST 17 U/L (15-37) 07/04/18 12:12 ALT 31 U/L (13-61) 07/04/18 12:12 Alkaline Phosphatase 135 U/L (45-117) H 07/04/18 12:12 Troponin I < 0.02 ng/ml (0.00-0.05) 06/30/18 14:03 Total Protein 7.1 g/dl (6.4-8.2) 07/04/18 12:12 Albumin 3.4 g/dl (3.4-5.0) 07/04/18 12:12 INR, PTT INR 1.11 (0.83-1.09) H 06/30/18 14:41 Urine Test Results Urine Color Yellow 06/30/18 19:15 Urine Appearance Cloudy 06/30/18 19:15 Urine pH 6.0 (5.0-8.0) 06/30/18 19:15 Ur Specific [place] 1.013 (1.010-1.035) 06/30/18 19:15 Urine Protein Negative (NEGATIVE) 06/30/18 19:15 Urine Glucose (UA) Negative (NEGATIVE) 06/30/18 19:15 Urine Ketones Trace (NEGATIVE) H 06/30/18 19:15 Urine Blood Negative (NEGATIVE) 06/30/18 19:15 Urine Nitrite Negative (NEGATIVE) 06/30/18 19:15 Urine Bilirubin Negative (<2.0 mg/dL) 06/30/18 19:15 Ur Leukocyte Esterase Trace (NEGATIVE) 06/30/18 19:15 Ur Epithelial Cells Rare /HPF (FEW) 06/30/18 19:15 Urine Bacteria Rare /hpf (NONE SEEN) 06/30/18 19:15 Urine Mucus Few 06/30/18 19:15 Microbiology 06/30/18 13:39 Blood Culture - Preliminary Blood - Peripheral Venous NO GROWTH OBTAINED AFTER 96 HOURS, INCUBATION TO CONTINUE FOR 1 DAYS. 06/30/18 13:39 Blood Culture - Preliminary Blood - Peripheral Venous NO GROWTH OBTAINED AFTER 96 HOURS, INCUBATION TO CONTINUE FOR 1 DAYS. Imaging - Results X-ray: Report Reviewed, Image Reviewed (AXR image from yesterday reviewed - spinal qasim noted, severe scoliosis, R femoral nail, G-tube tubing visible, nonspecific gas pattern) Problem List - Problems (1) Gastrostomy tube dependent Assessment/Plan: Pt with surgically placed gastrostomy, confirmed in stomach by radiology Reportedly aspirating with tube feeds No family or caretakers present Would like to find out who/where placed G-tube and when consider G-J tube placement prior to surgical intervention pt gets a lot of meds via tube - many may NOT be appropriate for J-tube administration (smaller caliber, easily clogged) if could tolerate J-tube feeds and G-tube meds with G-J tube, may avoid a second surgery surgical J-tube CANNOT be replaced if clogged, especially early after insertion would prefer trial of G-J tube to ensure proper tube management and assurance of feed tolerance before considering jejunostomy if pt currently with aspiration pneumonitis or pneumonia, would need medical optimization prior to open procedure anyway will follow up Thank you for the opportunity to participate in the care of this patient. Code(s): Z93.1 - GASTROSTOMY STATUS (2) Aspiration of gastric contents Code(s): T17.910A - GASTRIC CONTENTS IN RESP TRACT, PART UNSP CAUSE ASPHYX, INIT Qualifiers: Encounter type: sequela Qualified Code(s): T17.910S - Gastric contents in respiratory tract, part unspecified causing asphyxiation, sequela (3) Functional quadriplegia Code(s): R53.2 - FUNCTIONAL QUADRIPLEGIA (4) Cerebral palsy Code(s): G80.9 - CEREBRAL PALSY, UNSPECIFIED Qualifiers: Cerebral palsy type: unspecified type Qualified Code(s): G80.9 - Cerebral palsy, unspecified (5) Scoliosis Code(s): M41.9 - SCOLIOSIS, UNSPECIFIED Qualifiers: Scoliosis type: unspecified scoliosis Spinal region: thoracolumbar Qualified Code(s): M41.9 - Scoliosis, unspecified
--- NOTE | 2018-07-04 17:47 | PN ---
Progress Note, Physician History of Present Illness: patient was not able to tolerate tube feeds on hold - Current Medication List Current Medications: Active Medications Carbamazepine (Tegretol Oral Suspension -) 300 mg GT DAILY@1400 BRAD Last Admin: 07/04/18 13:26 Dose: 300 mg Carbamazepine (Tegretol Oral Suspension -) 400 mg GT BID@0700,2200 BRAD Last Admin: 07/04/18 06:02 Dose: 400 mg Clobazam (Onfi -) 10 mg GT HS BRAD Last Admin: 07/03/18 21:56 Dose: 10 mg Clobazam (Onfi -) 5 mg PO DAILY BRAD Last Admin: 07/04/18 09:07 Dose: 5 mg Aztreonam 1 gm/ Dextrose 50 mls @ 100 mls/hr IVPB Q8H-IV BRAD; Protocol Last Admin: 07/04/18 17:13 Dose: 100 mls/hr Vancomycin HCl 1,250 mg/ (Dextrose) 250 mls @ 250 mls/2 hr IVPB Q24H BRAD; Protocol Last Admin: 07/04/18 13:26 Dose: 250 mls/2 hr Dextrose/Sodium Chloride (D5-1/2ns -) 1,000 mls @ 50 mls/hr IV ASDIR BRAD Last Admin: 07/04/18 14:57 Dose: 50 mls/hr Levalbuterol HCl (Xopenex) 0.31 mg IH RTID BRAD Lorazepam (Ativan Injection -) 1 mg IVPUSH Q6H PRN PRN Reason: seizures Last Admin: 07/01/18 10:50 Dose: 1 mg Lorazepam (Ativan -) 1 mg GT Q6H PRN PRN Reason: seizure Methylprednisolone Sodium Succinate (Solu-Medrol -) 40 mg IVPUSH Q8H-IV BRAD Last Admin: 07/04/18 15:00 Dose: 40 mg Non-Formulary Medication (Rufinamide [Banzel]) 1,600 mg GT BID [facility] Polyethylene Glycol (Miralax (For Daily Use) -) 17 gm GT DAILY [facility] Last Admin: 07/04/18 09:06 Dose: 17 gm Topiramate (Topamax -) 300 mg GT DAILY [facility] Last Admin: 07/04/18 09:06 Dose: 300 mg Zonisamide (Zonisamide) 200 mg GT TID [facility] Last Admin: 07/04/18 13:26 Dose: 200 mg Zonisamide (Zonisamide) 50 mg GT HS [facility] Last Admin: 07/03/18 23:24 Dose: 50 mg - Objective Vital Signs: Vital Signs Temperature 97.4 F L 07/04/18 14:35 Pulse Rate 103 H 07/04/18 14:35 Respiratory Rate 20 07/04/18 14:35 Blood Pressure 119/80 07/04/18 14:35 O2 Sat by Pulse Oximetry (%) 97 07/04/18 09:00 Constitutional: Yes: No Distress HENT: Yes: Atraumatic Neck: Yes: Supple Cardiovascular: Yes: Regular Rate and Rhythm Respiratory: Yes: Rhonchi Gastrointestinal: Yes: Normal Bowel Sounds, Other (peg in place) Extremities: Yes: Deformity Edema: No Peripheral Pulses WNL: Yes Neurological: Yes: Alert, Other (awake) Labs: CBC, BMP 07/04/18 12:12 07/04/18 12:12 INR, PTT INR 1.11 (0.83-1.09) H 06/30/18 14:41 Problem List - Problems (1) Pneumonia Assessment/Plan: iv abx frequenty suctions id on board Code(s): J18.9 - PNEUMONIA, UNSPECIFIED ORGANISM (2) Cerebral palsy Code(s): G80.9 - CEREBRAL PALSY, UNSPECIFIED Qualifiers: 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(s): G80.0 - Spastic quadriplegic cerebral palsy (3) Functional quadriplegia Code(s): R53.2 - FUNCTIONAL QUADRIPLEGIA (4) Respiratory distress Code(s): R06.03 - ACUTE RESPIRATORY DISTRESS (5) Scoliosis Code(s): M41.9 - SCOLIOSIS, UNSPECIFIED Qualifiers: Scoliosis type: unspecified scoliosis Spinal region: thoracolumbar Qualified Code(s): M41.9 - Scoliosis, unspecified (6) Seizure Assessment/Plan: continue home meds Code(s): R56.9 - UNSPECIFIED CONVULSIONS (7) Aspiration of gastric contents Assessment/Plan: pt being evaluated buy gi, surgery and interventional radiology Code(s): T17.910A - GASTRIC CONTENTS IN RESP TRACT, PART UNSP CAUSE ASPHYX, INIT Qualifiers: Encounter type: sequela Qualified Code(s): T17.910S - Gastric contents in respiratory tract, part unspecified causing asphyxiation, sequela (8) Aspiration pneumonia Code(s): J69.0 - PNEUMONITIS DUE TO INHALATION OF FOOD AND VOMIT (9) Atelectasis of left lung Code(s): J98.11 - ATELECTASIS (10) Gastrostomy tube dependent Code(s): Z93.1 - GASTROSTOMY STATUS
[2018-07-04] MEDS: cloBAZam 10 MG TABLET GT SCH (21:14)
[2018-07-04] MEDS: LEVALBUTEROL HCL 0.31 MG/3 ML VIAL.NEB IH SCH (22:00)
[2018-07-05] MEDS: AZTREONAM 1 GM in DEXTROSE 5%-WATER - 50 ML IVPB SCH ×3 (01:40→17:01)
[2018-07-05] MEDS: methylPREDNISolone NA SUCC 40 MG/1 ML VIAL IVPUSH SCH ×3 (01:41→22:51)
[2018-07-05] MEDS: carBAMazepine 200 MG/10 ML UNIT-DOSE CUP GT SCH ×3 (06:42→22:52)
[2018-07-05] MEDS: ZONISAMIDE 100 MG/10 ML ORAL SUSPENSION GT SCH ×4 (06:42→22:52)
[2018-07-05] MEDS: LEVALBUTEROL HCL 0.31 MG/3 ML VIAL.NEB IH SCH ×3 (07:48→22:14)
[2018-07-05] MEDS: POLYETHYLENE GLYCOL 3350 119 GM BTL GT SCH (09:16)
[2018-07-05] MEDS: TOPIRAMATE 100 MG TABLET GT SCH (09:17)
[2018-07-05] MEDS: cloBAZam 10 MG TABLET PO SCH (09:17)
--- NOTE | 2018-07-05 12:46 | PN ---
Progress Note, Physician History of Present Illness: 28yoM with CP, functional quadriplegia, intellectual disability, seizure disorder/epilepsy, scoliosis s/p spinal qasim, recurrent ?aspiration pneumonia, has surgically placed gastrostomy tube since sometime prior to 10/09 (first visit to [facility]), dependent on GT for feeds and meds, used to live at home but is now resident at [facility], admitted a couple days ago from there with fever and sats 96% RA with thicker sputum on drooling (baseline). G-tube position was confirmed in radiology, but he has reportedly shown symptoms of recurrent aspiration with feeding, so GT feeds have been stopped. He gets all his meds and nutrition via tube. At baseline, he is nonverbal and does not follow commands, is wheelchair-bound, but occasionally makes eye contact or smiles. GI had seen patient. Given concern for recurrent aspiration with gastric feeds, surgery was asked to evaluate for possible surgical jejunostomy. He is seen and examined in bed, sleeping/resting comfortably. Little response to exam, though his eyes are open. G-tube is being used for meds, but not for feeds. I called and spoke at length with his father for more information: Gastrostomy was placed at time of Shahrzad fundoplication about 15 years ago (or more?) at [facility]. Since then, they have had no problems with feeding, reflux or emesis (never). While living at home (until about a year ago when he moved to [facility]), he did have problems with recurrent pneumonias, believed to be aspiration, more of oral secretions, which were thick as well as respiratory secretions. The family and home nurse learned techniques for aggressive chest PT , as well as deep pharyngeal suctioning (with Yankauer) and tracheal suctioning (with thin tube). He has a good cough reflex, and suctioning was enhanced when it could be induced. His episodes of pneumonia decreased dramatically, and these were performed quite frequently at home. Since living at [facility], his father Josefa did at one time speak to Dr. Melendez about Edouard's needs for frequent chest PT and appropriate suctioning, but he has still had occasions where nursing staff appeared to need reeducation about how to perform these in his presence. He is not aware of any instance in which Edouard has been known to actually vomit or regurgitate gastric contents. He is not convinced that any aspiration events are directly related to feeding, as opposed to oral secretions. Edouard had also seen a manager career more recently , who also suggested deep tracheal suctioning prn to help with this. Of note, he also confirms that Edouard has had chronic hyponatremia, but that his neurologist has not wanted to change any of his medications, given that it took a long time to get stable on his current regimen. - Current Medication List Current Medications: Active Medications Carbamazepine (Tegretol Oral Suspension -) 300 mg GT DAILY@1400 BRAD Last Admin: 07/04/18 13:26 Dose: 300 mg Carbamazepine (Tegretol Oral Suspension -) 400 mg GT BID@0700,2200 BRAD Last Admin: 07/05/18 06:42 Dose: 400 mg Clobazam (Onfi -) 10 mg GT HS BRAD Last Admin: 07/04/18 21:14 Dose: 10 mg Clobazam (Onfi -) 5 mg PO DAILY BRAD Last Admin: 07/05/18 09:17 Dose: 5 mg Aztreonam 1 gm/ Dextrose 50 mls @ 100 mls/hr IVPB Q8H-IV BRAD; Protocol Last Admin: 07/05/18 09:16 Dose: 100 mls/hr Vancomycin HCl 1,250 mg/ (Dextrose) 250 mls @ 250 mls/2 hr IVPB Q24H BRAD; Protocol Last Admin: 07/04/18 13:26 Dose: 250 mls/2 hr Dextrose/Sodium Chloride (D5-1/2ns -) 1,000 mls @ 50 mls/hr IV ASDIR BRAD Last Admin: 07/04/18 14:57 Dose: 50 mls/hr Levalbuterol HCl (Xopenex) 0.31 mg IH RTID BRAD Last Admin: 07/05/18 07:48 Dose: 0.31 mg Lorazepam (Ativan Injection -) 1 mg IVPUSH Q6H PRN PRN Reason: seizures Last Admin: 07/01/18 10:50 Dose: 1 mg Lorazepam (Ativan -) 1 mg GT Q6H PRN PRN Reason: seizure Last Admin: 07/04/18 21:01 Dose: 1 mg Methylprednisolone Sodium Succinate (Solu-Medrol -) 40 mg IVPUSH Q8H-IV BRAD Last Admin: 07/05/18 09:17 Dose: 40 mg Non-Formulary Medication (Rufinamide [Banzel]) 1,600 mg GT BID [facility] Polyethylene Glycol (Miralax (For Daily Use) -) 17 gm GT DAILY [facility] Last Admin: 07/05/18 09:16 Dose: 17 gm Topiramate (Topamax -) 300 mg GT DAILY [facility] Last Admin: 07/05/18 09:17 Dose: 300 mg Zonisamide (Zonisamide) 200 mg GT TID [facility] Last Admin: 07/05/18 06:42 Dose: 200 mg Zonisamide (Zonisamide) 50 mg GT HS [facility] Last Admin: 07/04/18 22:20 Dose: 50 mg - Objective Vital Signs: Vital Signs Temperature 97.3 F L 07/05/18 10:00 Pulse Rate 89 07/05/18 10:00 Respiratory Rate 20 07/05/18 10:00 Blood Pressure 112/61 07/05/18 10:00 O2 Sat by Pulse Oximetry (%) 97 07/05/18 09:00 Constitutional: Yes: Well Nourished, No Distress, Calm Eyes: Yes: Conjunctiva Clear, EOM Intact HENT: Yes: Atraumatic, Normocephalic, Drooling Respiratory: Yes: Regular, On Nasal O2 Gastrointestinal: Yes: Soft, Other (G-tube in place). No: Distention Extremities: Yes: External Rotation (BLE). No: Cool, Cyanosis Integumentary: No: Jaundice, Rash Neurological: Yes: Pre-Existing Deficit (CP/MR/epilepsy), Unresponsive. No: Alert Labs: no new labs today - ....Imaging Chest X-ray: Report Reviewed, Image Reviewed (from yesterday - improved aeration of left side, mostly upper, but rotated with hardware noted) Problem List - Problems (1) S/P Shahrzad fundoplication (with gastrostomy tube placement) Assessment/Plan: Pt with surgically placed gastrostomy, done at time of Shahrzad fundoplication years ago confirmed in stomach by radiology, but no evaluation of possible gastroesophageal reflux long discussion with pt's father by phone - see hpi given new information, strongly suspect aspiration episodes are secondary to thick oral secretions, not gastric contents agree that patient will likely benefit from aggressive and frequent chest PT and deep suctioning (pharyngeal/tracheal) - both in hospital and at living facility suggested that pt's father rediscuss this with [facility] staff for future before considering any change in feeding access, would recommend radiologic evaluation for reflux - and to evaluate integrity of Shahrzad fundoplication - UGI via GT? will check with radiology on Saturday if there is evidence of gastroesophageal reflux, may need to consider revision of NF (which would likely need foregut specialist, possibly tertiary center) if not, would continue to use gastrostomy for feeds and meds, according to his usual schedule either way, continue with chest PT and suctioning as noted presuming his respiratory complications are related to thick secretions and oropharyngeal aspiration, and not gastric, there would be no indication to change feeding site, as it would have no impact on that source will discuss with medical team Code(s): Z93.1 - GASTROSTOMY STATUS (2) Functional quadriplegia Code(s): R53.2 - FUNCTIONAL QUADRIPLEGIA (3) Cerebral palsy Code(s): G80.9 - CEREBRAL PALSY, UNSPECIFIED Qualifiers: 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(s): G80.0 - Spastic quadriplegic cerebral palsy (4) Scoliosis Code(s): M41.9 - SCOLIOSIS, UNSPECIFIED Qualifiers: Scoliosis type: unspecified scoliosis Spinal region: thoracolumbar Qualified Code(s): M41.9 - Scoliosis, unspecified
--- NOTE | 2018-07-05 13:06 | PN ---
Progress Note, Physician History of Present Illness: events noted TF still on hold on ivf - Current Medication List Current Medications: Active Medications Carbamazepine (Tegretol Oral Suspension -) 300 mg GT DAILY@1400 [facility] Last Admin: 07/04/18 13:26 Dose: 300 mg Carbamazepine (Tegretol Oral Suspension -) 400 mg GT BID@0700,2200 [facility] Last Admin: 07/05/18 06:42 Dose: 400 mg Clobazam (Onfi -) 10 mg GT HS [facility] Last Admin: 07/04/18 21:14 Dose: 10 mg Clobazam (Onfi -) 5 mg PO DAILY [facility] Last Admin: 07/05/18 09:17 Dose: 5 mg Aztreonam 1 gm/ Dextrose 50 mls @ 100 mls/hr IVPB Q8H-IV [facility]; Protocol Last Admin: 07/05/18 09:16 Dose: 100 mls/hr Vancomycin HCl 1,250 mg/ (Dextrose) 250 mls @ 250 mls/2 hr IVPB Q24H [facility]; Protocol Last Admin: 07/04/18 13:26 Dose: 250 mls/2 hr Dextrose/Sodium Chloride (D5-1/2ns -) 1,000 mls @ 50 mls/hr IV ASDIR [facility] Last Admin: 07/04/18 14:57 Dose: 50 mls/hr Levalbuterol HCl (Xopenex) 0.31 mg IH RTID [facility] Last Admin: 07/05/18 07:48 Dose: 0.31 mg Lorazepam (Ativan Injection -) 1 mg IVPUSH Q6H PRN PRN Reason: seizures Last Admin: 07/01/18 10:50 Dose: 1 mg Lorazepam (Ativan -) 1 mg GT Q6H PRN PRN Reason: seizure Last Admin: 07/04/18 21:01 Dose: 1 mg Methylprednisolone Sodium Succinate (Solu-Medrol -) 40 mg IVPUSH Q8H-IV [facility] Last Admin: 07/05/18 09:17 Dose: 40 mg Non-Formulary Medication (Rufinamide [Banzel]) 1,600 mg GT BID [facility] Polyethylene Glycol (Miralax (For Daily Use) -) 17 gm GT DAILY [facility] Last Admin: 07/05/18 09:16 Dose: 17 gm Topiramate (Topamax -) 300 mg GT DAILY [facility] Last Admin: 07/05/18 09:17 Dose: 300 mg Zonisamide (Zonisamide) 200 mg GT TID [facility] Last Admin: 07/05/18 06:42 Dose: 200 mg Zonisamide (Zonisamide) 50 mg GT HS [facility] Last Admin: 07/04/18 22:20 Dose: 50 mg - Objective Vital Signs: Vital Signs Temperature 97.3 F L 07/05/18 10:00 Pulse Rate 89 07/05/18 10:00 Respiratory Rate 20 07/05/18 10:00 Blood Pressure 112/61 07/05/18 10:00 O2 Sat by Pulse Oximetry (%) 97 07/05/18 09:00 Constitutional: Yes: No Distress HENT: Yes: Atraumatic Neck: Yes: Supple Cardiovascular: Yes: Regular Rate and Rhythm Respiratory: Yes: Rhonchi Gastrointestinal: Yes: Normal Bowel Sounds Extremities: Yes: Deformity Edema: No Neurological: Yes: Alert Labs: CBC, BMP 07/04/18 12:12 07/04/18 12:12 INR, PTT INR 1.11 (0.83-1.09) H 06/30/18 14:41 Problem List - Problems (1) Pneumonia Assessment/Plan: iv abx frequenty suctions id on board Code(s): J18.9 - PNEUMONIA, UNSPECIFIED ORGANISM (2) Cerebral palsy Code(s): G80.9 - CEREBRAL PALSY, UNSPECIFIED Qualifiers: 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(s): G80.0 - Spastic quadriplegic cerebral palsy (3) Functional quadriplegia Code(s): R53.2 - FUNCTIONAL QUADRIPLEGIA (4) Respiratory distress Code(s): R06.03 - ACUTE RESPIRATORY DISTRESS (5) Scoliosis Code(s): M41.9 - SCOLIOSIS, UNSPECIFIED Qualifiers: Scoliosis type: unspecified scoliosis Spinal region: thoracolumbar Qualified Code(s): M41.9 - Scoliosis, unspecified (6) Seizure Code(s): R56.9 - UNSPECIFIED CONVULSIONS (7) Aspiration of gastric contents Code(s): T17.910A - GASTRIC CONTENTS IN RESP TRACT, PART UNSP CAUSE ASPHYX, INIT Qualifiers: Encounter type: sequela Qualified Code(s): T17.910S - Gastric contents in respiratory tract, part unspecified causing asphyxiation, sequela (8) Aspiration pneumonia Code(s): J69.0 - PNEUMONITIS DUE TO INHALATION OF FOOD AND VOMIT (9) Atelectasis of left lung Code(s): J98.11 - ATELECTASIS (10) Gastrostomy tube dependent Code(s): Z93.1 - GASTROSTOMY STATUS Assessment/Plan d/w surgery she will talk to interventional on saturday to test regurgitation of food
[2018-07-05] MEDS: DEXTROSE 5%-0.45% SALINE 1,000 ML IV SCH ×2 (13:38→14:58)
--- NOTE | 2018-07-05 14:08 | PN ---
Progress Note, Physician History of Present Illness: events noted again it seems he is aspirating gi feeding stopped - Current Medication List Current Medications: Active Medications Carbamazepine (Tegretol Oral Suspension -) 300 mg GT DAILY@1400 [facility] Last Admin: 07/05/18 13:37 Dose: 300 mg Carbamazepine (Tegretol Oral Suspension -) 400 mg GT BID@0700,2200 [facility] Last Admin: 07/05/18 06:42 Dose: 400 mg Clobazam (Onfi -) 10 mg GT HS [facility] Last Admin: 07/04/18 21:14 Dose: 10 mg Clobazam (Onfi -) 5 mg PO DAILY [facility] Last Admin: 07/05/18 09:17 Dose: 5 mg Aztreonam 1 gm/ Dextrose 50 mls @ 100 mls/hr IVPB Q8H-IV [facility]; Protocol Last Admin: 07/05/18 09:16 Dose: 100 mls/hr Vancomycin HCl 1,250 mg/ (Dextrose) 250 mls @ 250 mls/2 hr IVPB Q24H [facility]; Protocol Last Admin: 07/04/18 13:26 Dose: 250 mls/2 hr Dextrose/Sodium Chloride (D5-1/2ns -) 1,000 mls @ 50 mls/hr IV ASDIR [facility] Last Admin: 07/05/18 13:38 Dose: 50 mls/hr Levalbuterol HCl (Xopenex) 0.31 mg IH RTID [facility] Last Admin: 07/05/18 13:55 Dose: 0.31 mg Lorazepam (Ativan Injection -) 1 mg IVPUSH Q6H PRN PRN Reason: seizures Last Admin: 07/01/18 10:50 Dose: 1 mg Lorazepam (Ativan -) 1 mg GT Q6H PRN PRN Reason: seizure Last Admin: 07/04/18 21:01 Dose: 1 mg Methylprednisolone Sodium Succinate (Solu-Medrol -) 40 mg IVPUSH Q8H-IV [facility] Last Admin: 07/05/18 09:17 Dose: 40 mg Non-Formulary Medication (Rufinamide [Banzel]) 1,600 mg GT BID [facility] Polyethylene Glycol (Miralax (For Daily Use) -) 17 gm GT DAILY [facility] Last Admin: 07/05/18 09:16 Dose: 17 gm Topiramate (Topamax -) 300 mg GT DAILY [facility] Last Admin: 07/05/18 09:17 Dose: 300 mg Zonisamide (Zonisamide) 200 mg GT TID [facility] Last Admin: 07/05/18 13:37 Dose: 200 mg Zonisamide (Zonisamide) 50 mg GT HS [facility] Last Admin: 07/04/18 22:20 Dose: 50 mg - Objective Vital Signs: Vital Signs Temperature 97.4 F L 07/05/18 13:51 Pulse Rate 97 H 07/05/18 13:51 Respiratory Rate 20 07/05/18 13:51 Blood Pressure 116/65 07/05/18 13:51 O2 Sat by Pulse Oximetry (%) 97 07/05/18 09:00 Constitutional: Yes: No Distress, Calm Cardiovascular: Yes: Regular Rate and Rhythm Respiratory: Yes: Poor Air Entry, Rhonchi Gastrointestinal: Yes: Normal Bowel Sounds, Soft, Other (peg in place) Musculoskeletal: Yes: WNL Extremities: Yes: Other Neurological: Yes: Alert, Other Psychiatric: Yes: Other Labs: CBC, BMP 07/04/18 12:12 07/04/18 12:12 INR, PTT INR 1.11 (0.83-1.09) H 06/30/18 14:41 Assessment/Plan Problem List - Problems (1) Pneumonia Code(s): J18.9 - PNEUMONIA, UNSPECIFIED ORGANISM (2) Cerebral palsy Code(s): G80.9 - CEREBRAL PALSY, UNSPECIFIED (3) Functional quadriplegia Code(s): R53.2 - FUNCTIONAL QUADRIPLEGIA (4) Respiratory distress Code(s): R06.03 - ACUTE RESPIRATORY DISTRESS (5) Scoliosis Code(s): M41.9 - SCOLIOSIS, UNSPECIFIED (6) Seizure Code(s): R56.9 - UNSPECIFIED CONVULSIONS plan continue abx npo elevated position rest as per the team
[2018-07-05] MEDS: VANCOMYCIN 1,250 MG in DEXTROSE 5%-WATER - 250 ML IVPB SCH (14:58)
--- NOTE | 2018-07-05 16:31 | PN ---
Progress Note, Physician History of Present Illness: PULMONARY COMFORTABLE,-RESP DISTRESS,LESS CONGESTION - Current Medication List Current Medications: Active Medications Carbamazepine (Tegretol Oral Suspension -) 300 mg GT DAILY@1400 [facility] Last Admin: 07/05/18 13:37 Dose: 300 mg Carbamazepine (Tegretol Oral Suspension -) 400 mg GT BID@0700,2200 [facility] Last Admin: 07/05/18 06:42 Dose: 400 mg Clobazam (Onfi -) 10 mg GT HS [facility] Last Admin: 07/04/18 21:14 Dose: 10 mg Clobazam (Onfi -) 5 mg PO DAILY [facility] Last Admin: 07/05/18 09:17 Dose: 5 mg Aztreonam 1 gm/ Dextrose 50 mls @ 100 mls/hr IVPB Q8H-IV [facility]; Protocol Last Admin: 07/05/18 09:16 Dose: 100 mls/hr Vancomycin HCl 1,250 mg/ (Dextrose) 250 mls @ 250 mls/2 hr IVPB Q24H [facility]; Protocol Last Admin: 07/05/18 14:58 Dose: 250 mls/2 hr Dextrose/Sodium Chloride (D5-1/2ns -) 1,000 mls @ 50 mls/hr IV ASDIR [facility] Last Admin: 07/05/18 14:58 Dose: Not Given Levalbuterol HCl (Xopenex) 0.31 mg IH RTID [facility] Last Admin: 07/05/18 13:55 Dose: 0.31 mg Lorazepam (Ativan Injection -) 1 mg IVPUSH Q6H PRN PRN Reason: seizures Last Admin: 07/01/18 10:50 Dose: 1 mg Lorazepam (Ativan -) 1 mg GT Q6H PRN PRN Reason: seizure Last Admin: 07/04/18 21:01 Dose: 1 mg Methylprednisolone Sodium Succinate (Solu-Medrol -) 40 mg IVPUSH Q8H-IV [facility] Last Admin: 07/05/18 09:17 Dose: 40 mg Non-Formulary Medication (Rufinamide [Banzel]) 1,600 mg GT BID [facility] Polyethylene Glycol (Miralax (For Daily Use) -) 17 gm GT DAILY [facility] Last Admin: 07/05/18 09:16 Dose: 17 gm Topiramate (Topamax -) 300 mg GT DAILY [facility] Last Admin: 07/05/18 09:17 Dose: 300 mg Zonisamide (Zonisamide) 200 mg GT TID [facility] Last Admin: 07/05/18 13:37 Dose: 200 mg Zonisamide (Zonisamide) 50 mg GT HS [facility] Last Admin: 07/04/18 22:20 Dose: 50 mg - Objective Vital Signs: Vital Signs Temperature 97.4 F L 07/05/18 13:51 Pulse Rate 97 H 07/05/18 13:51 Respiratory Rate 20 07/05/18 13:51 Blood Pressure 116/65 07/05/18 13:51 O2 Sat by Pulse Oximetry (%) 97 07/05/18 09:00 Constitutional: Yes: Well Nourished, Calm Eyes: Yes: WNL HENT: Yes: WNL Neck: Yes: WNL Cardiovascular: Yes: Regular Rate and Rhythm, S1, S2 Respiratory: Yes: Rhonchi (LESS RHONCHI BILATERALLY) Gastrointestinal: Yes: Normal Bowel Sounds, Soft Extremities: Yes: WNL Edema: No Labs: Problem List - Problems (1) Atelectasis of left lung Code(s): J98.11 - ATELECTASIS (2) Pneumonia Code(s): J18.9 - PNEUMONIA, UNSPECIFIED ORGANISM (3) Allergy to multiple antibiotics Code(s): Z88.1 - ALLERGY STATUS TO OTHER ANTIBIOTIC AGENTS STATUS (4) Cerebral palsy Code(s): G80.9 - CEREBRAL PALSY, UNSPECIFIED Qualifiers: 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(s): G80.0 - Spastic quadriplegic cerebral palsy (5) Functional quadriplegia Code(s): R53.2 - FUNCTIONAL QUADRIPLEGIA (6) Respiratory distress Code(s): R06.03 - ACUTE RESPIRATORY DISTRESS (7) Scoliosis Code(s): M41.9 - SCOLIOSIS, UNSPECIFIED Qualifiers: Scoliosis type: unspecified scoliosis Spinal region: thoracolumbar Qualified Code(s): M41.9 - Scoliosis, unspecified (8) Seizure Code(s): R56.9 - UNSPECIFIED CONVULSIONS (9) PNA (pneumonia) Code(s): J18.9 - PNEUMONIA, UNSPECIFIED ORGANISM Qualifiers: Pneumonia type: due to unspecified organism Laterality: unspecified laterality Lung location: unspecified part of lung Qualified Code(s): J18.9 - Pneumonia, unspecified organism (10) Aspiration pneumonia Code(s): J69.0 - PNEUMONITIS DUE TO INHALATION OF FOOD AND VOMIT (11) SOB (shortness of breath) Code(s): R06.02 - SHORTNESS OF BREATH Assessment/Plan IMP RESPIRATORY DISTRESS IMPROVING PNEUMONIA LIKELY RECURRENT ASPIRATION LEFT LUNG CONSOLIDATION/ATELECTASIS SEIZURES CEREBRAL PALSY MENTAL RETARDATION SEVERE SCOLIOSIS PLAN ABX PER ID INHALED BRONCHODILATORS MEDROL O2 ASPIRATION PRECAUTIONS F/U CHEST X-RAY FREQUENT SUCTIONING DR NEGLAND Problem List - Problems (1) Atelectasis of left lung Code(s): J98.11 - ATELECTASIS (2) Pneumonia Code(s): J18.9 - PNEUMONIA, UNSPECIFIED ORGANISM (3) Allergy to multiple antibiotics Code(s): Z88.1 - ALLERGY STATUS TO OTHER ANTIBIOTIC AGENTS STATUS (4) Cerebral palsy Code(s): G80.9 - CEREBRAL PALSY, UNSPECIFIED (5) Functional quadriplegia Code(s): R53.2 - FUNCTIONAL QUADRIPLEGIA (6) Respiratory distress Code(s): R06.03 - ACUTE RESPIRATORY DISTRESS (7) Scoliosis Code(s): M41.9 - SCOLIOSIS, UNSPECIFIED (8) Seizure Code(s): R56.9 - UNSPECIFIED CONVULSIONS (9) PNA (pneumonia) Code(s): J18.9 - PNEUMONIA, UNSPECIFIED ORGANISM Qualifiers: Pneumonia type: due to unspecified organism Laterality: unspecified laterality Lung location: unspecified part of lung Qualified Code(s): J18.9 - Pneumonia, unspecified organism (10) Aspiration pneumonia Code(s): J69.0 - PNEUMONITIS DUE TO INHALATION OF FOOD AND VOMIT (11) SOB (shortness of breath) Code(s): R06.02 - SHORTNESS OF BREATH
[2018-07-05] MEDS: cloBAZam 10 MG TABLET GT SCH (22:50)
[2018-07-06] MEDS: AZTREONAM 1 GM in DEXTROSE 5%-WATER - 50 ML IVPB SCH ×3 (01:22→18:25)
[2018-07-06] MEDS: ZONISAMIDE 100 MG/10 ML ORAL SUSPENSION GT SCH ×4 (06:21→21:40)
[2018-07-06] MEDS: carBAMazepine 200 MG/10 ML UNIT-DOSE CUP GT SCH ×3 (06:22→21:38)
[2018-07-06] MEDS: LEVALBUTEROL HCL 0.31 MG/3 ML VIAL.NEB IH SCH ×2 (07:53→14:30)
[2018-07-06] MEDS ORDERED: PT OWN MED DRAWER 7, Y5N ONE ×3 (09:21→14:51)
[2018-07-06] MEDS: methylPREDNISolone NA SUCC 40 MG/1 ML VIAL IVPUSH SCH ×2 (10:52→21:37)
[2018-07-06] MEDS: cloBAZam 10 MG TABLET PO SCH (10:52)
[2018-07-06] MEDS: POLYETHYLENE GLYCOL 3350 119 GM BTL GT SCH (10:52)
[2018-07-06] MEDS: TOPIRAMATE 100 MG TABLET GT SCH (10:54)
--- NOTE | 2018-07-06 12:37 | PN ---
Progress Note, Physician History of Present Illness: calmer npo breathing well - Current Medication List Current Medications: Active Medications Carbamazepine (Tegretol Oral Suspension -) 300 mg GT DAILY@1400 [facility] Last Admin: 07/05/18 13:37 Dose: 300 mg Carbamazepine (Tegretol Oral Suspension -) 400 mg GT BID@0700,2200 [facility] Last Admin: 07/06/18 06:22 Dose: 400 mg Clobazam (Onfi -) 10 mg GT HS [facility] Last Admin: 07/05/18 22:50 Dose: 10 mg Clobazam (Onfi -) 5 mg PO DAILY [facility] Last Admin: 07/06/18 10:52 Dose: 5 mg Aztreonam 1 gm/ Dextrose 50 mls @ 100 mls/hr IVPB Q8H-IV [facility]; Protocol Last Admin: 07/06/18 10:52 Dose: 100 mls/hr Vancomycin HCl 1,250 mg/ (Dextrose) 250 mls @ 250 mls/2 hr IVPB Q24H [facility]; Protocol Last Admin: 07/05/18 14:58 Dose: 250 mls/2 hr Dextrose/Sodium Chloride (D5-1/2ns -) 1,000 mls @ 50 mls/hr IV ASDIR [facility] Last Admin: 07/05/18 14:58 Dose: Not Given Levalbuterol HCl (Xopenex) 0.31 mg IH RTID [facility] Last Admin: 07/06/18 07:53 Dose: Not Given Lorazepam (Ativan Injection -) 1 mg IVPUSH Q6H PRN PRN Reason: seizures Last Admin: 07/01/18 10:50 Dose: 1 mg Lorazepam (Ativan -) 1 mg GT Q6H PRN PRN Reason: seizure Last Admin: 07/04/18 21:01 Dose: 1 mg Methylprednisolone Sodium Succinate (Solu-Medrol -) 40 mg IVPUSH BID [facility] Last Admin: 07/06/18 10:52 Dose: 40 mg Non-Formulary Medication (Rufinamide [Banzel]) 1,600 mg GT BID [facility] Polyethylene Glycol (Miralax (For Daily Use) -) 17 gm GT DAILY [facility] Last Admin: 07/06/18 10:52 Dose: 17 gm Topiramate (Topamax -) 300 mg GT DAILY [facility] Last Admin: 07/06/18 10:54 Dose: 300 mg Zonisamide (Zonisamide) 200 mg GT TID [facility] Last Admin: 07/06/18 06:21 Dose: 200 mg Zonisamide (Zonisamide) 50 mg GT HS [facility] Last Admin: 07/05/18 22:52 Dose: 50 mg - Objective Vital Signs: Vital Signs Temperature 97.3 F L 07/06/18 09:00 Pulse Rate 70 07/06/18 09:00 Respiratory Rate 30 H 07/06/18 09:00 Blood Pressure 103/63 07/06/18 09:00 O2 Sat by Pulse Oximetry (%) 97 07/05/18 21:00 Constitutional: Yes: No Distress, Calm Cardiovascular: Yes: Regular Rate and Rhythm Respiratory: Yes: Regular, CTA Bilaterally Gastrointestinal: Yes: Normal Bowel Sounds, Soft, Other (peg in place) Musculoskeletal: Yes: WNL Extremities: Yes: WNL Neurological: Yes: Other Psychiatric: Yes: Other Labs: CBC, BMP 07/04/18 12:12 07/04/18 12:12 INR, PTT INR 1.11 (0.83-1.09) H 06/30/18 14:41 Assessment/Plan Problem List - Problems (1) Pneumonia Code(s): J18.9 - PNEUMONIA, UNSPECIFIED ORGANISM (2) Cerebral palsy Code(s): G80.9 - CEREBRAL PALSY, UNSPECIFIED (3) Functional quadriplegia Code(s): R53.2 - FUNCTIONAL QUADRIPLEGIA (4) Respiratory distress Code(s): R06.03 - ACUTE RESPIRATORY DISTRESS (5) Scoliosis Code(s): M41.9 - SCOLIOSIS, UNSPECIFIED (6) Seizure Code(s): R56.9 - UNSPECIFIED CONVULSIONS plan continue abx npo elevated position rest as per the team final pln of the tube needed
--- NOTE | 2018-07-06 13:45 | PN ---
Progress Note, Physician History of Present Illness: pulmonary sleeping ,-resp distress,less congestion - Current Medication List Current Medications: Active Medications Carbamazepine (Tegretol Oral Suspension -) 300 mg GT DAILY@1400 [facility] Last Admin: 07/06/18 13:40 Dose: 300 mg Carbamazepine (Tegretol Oral Suspension -) 400 mg GT BID@0700,2200 [facility] Last Admin: 07/06/18 06:22 Dose: 400 mg Clobazam (Onfi -) 10 mg GT HS [facility] Last Admin: 07/05/18 22:50 Dose: 10 mg Clobazam (Onfi -) 5 mg PO DAILY [facility] Last Admin: 07/06/18 10:52 Dose: 5 mg Aztreonam 1 gm/ Dextrose 50 mls @ 100 mls/hr IVPB Q8H-IV [facility]; Protocol Last Admin: 07/06/18 10:52 Dose: 100 mls/hr Vancomycin HCl 1,250 mg/ (Dextrose) 250 mls @ 250 mls/2 hr IVPB Q24H [facility]; Protocol Last Admin: 07/05/18 14:58 Dose: 250 mls/2 hr Dextrose/Sodium Chloride (D5-1/2ns -) 1,000 mls @ 50 mls/hr IV ASDIR [facility] Last Admin: 07/05/18 14:58 Dose: Not Given Levalbuterol HCl (Xopenex) 0.31 mg IH RTID [facility] Last Admin: 07/06/18 07:53 Dose: Not Given Lorazepam (Ativan Injection -) 1 mg IVPUSH Q6H PRN PRN Reason: seizures Last Admin: 07/01/18 10:50 Dose: 1 mg Lorazepam (Ativan -) 1 mg GT Q6H PRN PRN Reason: seizure Last Admin: 07/04/18 21:01 Dose: 1 mg Methylprednisolone Sodium Succinate (Solu-Medrol -) 40 mg IVPUSH BID [facility] Last Admin: 07/06/18 10:52 Dose: 40 mg Non-Formulary Medication (Rufinamide [Banzel]) 1,600 mg GT BID [facility] Polyethylene Glycol (Miralax (For Daily Use) -) 17 gm GT DAILY [facility] Last Admin: 07/06/18 10:52 Dose: 17 gm Topiramate (Topamax -) 300 mg GT DAILY [facility] Last Admin: 07/06/18 10:54 Dose: 300 mg Zonisamide (Zonisamide) 200 mg GT TID [facility] Last Admin: 07/06/18 13:44 Dose: 200 mg Zonisamide (Zonisamide) 50 mg GT HS [facility] Last Admin: 07/05/18 22:52 Dose: 50 mg - Objective Vital Signs: Vital Signs Temperature 97.8 F 07/06/18 13:14 Pulse Rate 83 07/06/18 13:14 Respiratory Rate 20 07/06/18 13:14 Blood Pressure 109/67 07/06/18 13:14 O2 Sat by Pulse Oximetry (%) 97 07/05/18 21:00 Constitutional: Yes: Well Nourished (sleeping), Other Eyes: Yes: WNL HENT: Yes: WNL Neck: Yes: WNL Cardiovascular: Yes: Regular Rate and Rhythm, S1, S2 Respiratory: Yes: Rhonchi (less rhonchi bilaterally) Gastrointestinal: Yes: Normal Bowel Sounds, Soft Extremities: Yes: WNL Edema: No Labs: CBC, BMP Problem List - Problems (1) Atelectasis of left lung Code(s): J98.11 - ATELECTASIS (2) Pneumonia Code(s): J18.9 - PNEUMONIA, UNSPECIFIED ORGANISM (3) Allergy to multiple antibiotics Code(s): Z88.1 - ALLERGY STATUS TO OTHER ANTIBIOTIC AGENTS STATUS (4) Cerebral palsy Code(s): G80.9 - CEREBRAL PALSY, UNSPECIFIED Qualifiers: 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(s): G80.0 - Spastic quadriplegic cerebral palsy (5) Functional quadriplegia Code(s): R53.2 - FUNCTIONAL QUADRIPLEGIA (6) Respiratory distress Code(s): R06.03 - ACUTE RESPIRATORY DISTRESS (7) Scoliosis Code(s): M41.9 - SCOLIOSIS, UNSPECIFIED Qualifiers: Scoliosis type: unspecified scoliosis Spinal region: thoracolumbar Qualified Code(s): M41.9 - Scoliosis, unspecified (8) Seizure Code(s): R56.9 - UNSPECIFIED CONVULSIONS (9) PNA (pneumonia) Code(s): J18.9 - PNEUMONIA, UNSPECIFIED ORGANISM Qualifiers: Pneumonia type: due to unspecified organism Laterality: unspecified laterality Lung location: unspecified part of lung Qualified Code(s): J18.9 - Pneumonia, unspecified organism (10) Aspiration pneumonia Code(s): J69.0 - PNEUMONITIS DUE TO INHALATION OF FOOD AND VOMIT (11) SOB (shortness of breath) Code(s): R06.02 - SHORTNESS OF BREATH Assessment/Plan IMP RESPIRATORY DISTRESS IMPROVING PNEUMONIA LIKELY RECURRENT ASPIRATION LEFT LUNG CONSOLIDATION/ATELECTASIS SEIZURES CEREBRAL PALSY MENTAL RETARDATION SEVERE SCOLIOSIS PLAN ABX PER ID INHALED BRONCHODILATORS MEDROL O2 ASPIRATION PRECAUTIONS F/U CHEST X-RAYS FREQUENT SUCTIONING DR ENGLAND Problem List - Problems (1) Atelectasis of left lung Code(s): J98.11 - ATELECTASIS (2) Pneumonia Code(s): J18.9 - PNEUMONIA, UNSPECIFIED ORGANISM (3) Allergy to multiple antibiotics Code(s): Z88.1 - ALLERGY STATUS TO OTHER ANTIBIOTIC AGENTS STATUS (4) Cerebral palsy Code(s): G80.9 - CEREBRAL PALSY, UNSPECIFIED (5) Functional quadriplegia Code(s): R53.2 - FUNCTIONAL QUADRIPLEGIA (6) Respiratory distress Code(s): R06.03 - ACUTE RESPIRATORY DISTRESS (7) Scoliosis Code(s): M41.9 - SCOLIOSIS, UNSPECIFIED (8) Seizure Code(s): R56.9 - UNSPECIFIED CONVULSIONS (9) PNA (pneumonia) Code(s): J18.9 - PNEUMONIA, UNSPECIFIED ORGANISM Qualifiers: Pneumonia type: due to unspecified organism Laterality: unspecified laterality Lung location: unspecified part of lung Qualified Code(s): J18.9 - Pneumonia, unspecified organism (10) Aspiration pneumonia Code(s): J69.0 - PNEUMONITIS DUE TO INHALATION OF FOOD AND VOMIT (11) SOB (shortness of breath) Code(s): R06.02 - SHORTNESS OF BREATH
--- NOTE | 2018-07-06 15:00 | PN ---
Progress Note, Physician History of Present Illness: 28yoM with CP, functional quadriplegia, intellectual disability, seizure disorder/epilepsy, scoliosis s/p spinal qasim, recurrent ?aspiration pneumonia, has surgically placed gastrostomy tube at time of Shahrzad fundoplication at least 15 years ago, dependent on GT for feeds and meds, used to live at home but is now resident at [facility] (about a year), admitted from there with fever and sats 96% RA with increased/thicker secretions. G-tube position was confirmed in radiology, but he has reportedly shown symptoms of recurrent aspiration with feeding, so GT feeds have been stopped. He gets all his meds and nutrition via tube. At baseline, he is nonverbal and does not follow commands, is wheelchair-bound, but occasionally makes eye contact or smiles. GI has seen patient. Given concern for recurrent aspiration with gastric feeds, surgery was asked to evaluate for possible surgical jejunostomy. Per conversation with patient's father: Gastrostomy was placed at time of Shahrzad fundoplication about 15 years ago (or more?) at [facility]. Since then, they have had no problems with gastric feeding, reflux or emesis (never). While living at home (until about a year ago when he moved to [facility]), he did have problems with recurrent pneumonias, believed to be aspiration, more of oral secretions, which were thick as well as respiratory secretions. The family and home nurse learned techniques for aggressive chest PT, as well as deep pharyngeal suctioning (with Yankauer) and tracheal suctioning (with thin tube). He has a good cough reflex, and suctioning was enhanced when it could be induced. His episodes of pneumonia decreased dramatically, and these therapies were performed quite frequently at home. Since living at [place], his father Josefa did at one time speak to Dr. Melendez about Edouard's needs for frequent chest PT and appropriate suctioning, but he has still had occasions where nursing staff appeared to need reeducation about how to perform these in his presence. He is not aware of any instance in which Edouard has been known to actually vomit or regurgitate gastric contents. He is not convinced that any aspiration events are directly related to feeding, as opposed to oral secretions. Edouard had also seen a operator automated process more recently , who also suggested deep tracheal suctioning prn to help with this. He is seen and examined in bed, sleeping/resting comfortably. Little response to exam, though his eyes open a little. G-tube is being used for meds, but not for feeds. He is getting chest PT bid and suctioning q shift and prn. Per nurse , PT and suctioning are very effective. - Current Medication List Current Medications: Active Medications Carbamazepine (Tegretol Oral Suspension -) 300 mg GT DAILY@1400 [facility] Last Admin: 07/06/18 13:40 Dose: 300 mg Carbamazepine (Tegretol Oral Suspension -) 400 mg GT BID@0700,2200 [facility] Last Admin: 07/06/18 06:22 Dose: 400 mg Clobazam (Onfi -) 10 mg GT HS [facility] Last Admin: 07/05/18 22:50 Dose: 10 mg Clobazam (Onfi -) 5 mg PO DAILY [facility] Last Admin: 07/06/18 10:52 Dose: 5 mg Aztreonam 1 gm/ Dextrose 50 mls @ 100 mls/hr IVPB Q8H-IV [facility]; Protocol Last Admin: 07/06/18 10:52 Dose: 100 mls/hr Vancomycin HCl 1,250 mg/ (Dextrose) 250 mls @ 250 mls/2 hr IVPB Q24H [facility]; Protocol Last Admin: 07/05/18 14:58 Dose: 250 mls/2 hr Dextrose/Sodium Chloride (D5-1/2ns -) 1,000 mls @ 50 mls/hr IV ASDIR [facility] Last Admin: 07/05/18 14:58 Dose: Not Given Levalbuterol HCl (Xopenex) 0.31 mg IH RTID [facility] Last Admin: 07/06/18 07:53 Dose: Not Given Lorazepam (Ativan Injection -) 1 mg IVPUSH Q6H PRN PRN Reason: seizures Last Admin: 07/01/18 10:50 Dose: 1 mg Lorazepam (Ativan -) 1 mg GT Q6H PRN PRN Reason: seizure Last Admin: 07/04/18 21:01 Dose: 1 mg Methylprednisolone Sodium Succinate (Solu-Medrol -) 40 mg IVPUSH BID [facility] Last Admin: 07/06/18 10:52 Dose: 40 mg Non-Formulary Medication (Rufinamide [Banzel]) 1,600 mg GT BID [facility] Polyethylene Glycol (Miralax (For Daily Use) -) 17 gm GT DAILY [facility] Last Admin: 07/06/18 10:52 Dose: 17 gm Topiramate (Topamax -) 300 mg GT DAILY [facility] Last Admin: 07/06/18 10:54 Dose: 300 mg Zonisamide (Zonisamide) 200 mg GT TID [facility] Last Admin: 07/06/18 13:44 Dose: 200 mg Zonisamide (Zonisamide) 50 mg GT HS [facility] Last Admin: 07/05/18 22:52 Dose: 50 mg - Objective Vital Signs: Vital Signs Temperature 97.8 F 07/06/18 13:14 Pulse Rate 83 07/06/18 13:14 Respiratory Rate 20 07/06/18 13:14 Blood Pressure 109/67 07/06/18 13:14 O2 Sat by Pulse Oximetry (%) 97 07/05/18 21:00 Constitutional: Yes: Well Nourished, No Distress, Calm Eyes: Yes: Conjunctiva Clear, EOM Intact HENT: Yes: Atraumatic, Normocephalic Respiratory: Yes: Regular, On Nasal O2 Gastrointestinal: Yes: Soft, Other (G-tube in place, site clean). No: Distention, Tenderness (none apparent) Genitourinary: Yes: Other (condom catheter in place) Extremities: Yes: External Rotation (BLE). No: Cool, Cyanosis Integumentary: No: Jaundice, Rash Neurological: Yes: Pre-Existing Deficit (CP/MR/sz), Unresponsive. No: Alert Labs: no new labs Problem List - Problems (1) S/P Shahrzad fundoplication (with gastrostomy tube placement) Assessment/Plan: Pt with surgically placed gastrostomy, done at time of Shahrzad fundoplication years ago confirmed in stomach by radiology, but no evaluation of possible gastroesophageal reflux long discussion with pt's father yesterday phone - see hpi given new information, strongly suspect aspiration episodes are secondary to thick oral secretions, not gastric contents agree that patient will likely benefit from aggressive and frequent chest PT and deep suctioning (pharyngeal/tracheal) - both in hospital and at living facility would increase chest PT to q4-6 hours at least, with suctioning same frequency and prn before considering any change in feeding access, would recommend radiologic evaluation for reflux - and to evaluate integrity of Shahrzad fundoplication - UGI via GT? will check with radiology on Saturday if there is evidence of gastroesophageal reflux, may need to consider revision of NF (which would likely need foregut specialist, possibly tertiary center) if not, would continue to use gastrostomy for feeds and meds, according to his usual schedule, as changing feeding site would have no impact on oropharyngeal aspiration either way, continue with chest PT and suctioning as noted discussed with Dr. Maria yesterday Code(s): Z93.1 - GASTROSTOMY STATUS (2) Functional quadriplegia Code(s): R53.2 - FUNCTIONAL QUADRIPLEGIA (3) Cerebral palsy Code(s): G80.9 - CEREBRAL PALSY, UNSPECIFIED Qualifiers: 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(s): G80.0 - Spastic quadriplegic cerebral palsy (4) Scoliosis Code(s): M41.9 - SCOLIOSIS, UNSPECIFIED Qualifiers: Scoliosis type: unspecified scoliosis Spinal region: thoracolumbar Qualified Code(s): M41.9 - Scoliosis, unspecified
[2018-07-06] MEDS: VANCOMYCIN 1,250 MG in DEXTROSE 5%-WATER - 250 ML IVPB SCH (15:31)
[2018-07-06] MEDS: DEXTROSE 5%-0.45% SALINE 1,000 ML IV SCH (15:33)
[2018-07-06] MEDS: LEVALBUTEROL HCL 0.63 MG/3 ML VIAL.NEB. IH SCH (20:27)
--- NOTE | 2018-07-06 20:46 | PN ---
Progress Note, Physician - Current Medication List Current Medications: Active Medications Carbamazepine (Tegretol Oral Suspension -) 300 mg GT DAILY@1400 [facility] Last Admin: 07/06/18 13:40 Dose: 300 mg Carbamazepine (Tegretol Oral Suspension -) 400 mg GT BID@0700,2200 [facility] Last Admin: 07/06/18 06:22 Dose: 400 mg Clobazam (Onfi -) 5 mg PO DAILY [facility] Last Admin: 07/06/18 10:52 Dose: 5 mg Aztreonam 1 gm/ Dextrose 50 mls @ 100 mls/hr IVPB Q8H-IV [facility]; Protocol Last Admin: 07/06/18 18:25 Dose: 100 mls/hr Vancomycin HCl 1,250 mg/ (Dextrose) 250 mls @ 250 mls/2 hr IVPB Q24H [facility]; Protocol Last Admin: 07/06/18 15:31 Dose: 250 mls/2 hr Dextrose/Sodium Chloride (D5-1/2ns -) 1,000 mls @ 50 mls/hr IV ASDIR [facility] Last Admin: 07/06/18 15:33 Dose: 50 mls/hr Levalbuterol HCl (Xopenex) 0.31 mg IH RTID [facility] Last Admin: 07/06/18 20:27 Dose: 0.31 mg Methylprednisolone Sodium Succinate (Solu-Medrol -) 40 mg IVPUSH BID [facility] Last Admin: 07/06/18 10:52 Dose: 40 mg Non-Formulary Medication (Rufinamide [Banzel]) 1,600 mg GT BID [facility] Polyethylene Glycol (Miralax (For Daily Use) -) 17 gm GT DAILY [facility] Last Admin: 07/06/18 10:52 Dose: 17 gm Topiramate (Topamax -) 300 mg GT DAILY [facility] Last Admin: 07/06/18 10:54 Dose: 300 mg Zonisamide (Zonisamide) 200 mg GT TID [facility] Last Admin: 07/06/18 13:44 Dose: 200 mg Zonisamide (Zonisamide) 50 mg GT HS [facility] Last Admin: 07/05/18 22:52 Dose: 50 mg - Objective Vital Signs: Vital Signs Temperature 98.1 F 07/06/18 17:29 Pulse Rate 81 07/06/18 17:29 Respiratory Rate 18 07/06/18 17:29 Blood Pressure 112/69 07/06/18 17:29 O2 Sat by Pulse Oximetry (%) 99 07/06/18 09:00 Labs: CBC, BMP 07/04/18 12:12 07/04/18 12:12 INR, PTT INR 1.11 (0.83-1.09) H 06/30/18 14:41
[2018-07-07] MEDS: AZTREONAM 1 GM in DEXTROSE 5%-WATER - 50 ML IVPB SCH ×3 (01:06→17:06)
[2018-07-07] MEDS: ZONISAMIDE 100 MG/10 ML ORAL SUSPENSION GT SCH ×4 (06:08→22:00)
[2018-07-07] MEDS: carBAMazepine 200 MG/10 ML UNIT-DOSE CUP GT SCH ×3 (06:08→23:50)
[2018-07-07] MEDS: LEVALBUTEROL HCL 0.63 MG/3 ML VIAL.NEB. IH SCH ×3 (08:15→21:20)
[2018-07-07] MEDS: methylPREDNISolone NA SUCC 40 MG/1 ML VIAL IVPUSH SCH (10:48)
[2018-07-07] MEDS: cloBAZam 10 MG TABLET PO SCH (10:48)
[2018-07-07] MEDS: TOPIRAMATE 100 MG TABLET GT SCH (10:48)
[2018-07-07] MEDS: POLYETHYLENE GLYCOL 3350 119 GM BTL GT SCH (10:49)
[2018-07-07] MEDS: DEXTROSE 5%-0.45% SALINE 1,000 ML IV SCH ×2 (12:30→15:16)
--- NOTE | 2018-07-07 12:49 | PN ---
Progress Note (short form) - Note Progress Note: PULMONARY Pt nonverbal. No fevers recorded. Vital Signs Period Temp Pulse Resp BP Sys/Grossman Pulse Ox Last 24 Hr 97.2 F-98.3 F 76-88 18-20 104-114/52-69 99-100 Gen: nonverbal Heart: RRR Lung: decreased breath sounds at the bases Abd: soft, nontender Ext: contracted CBC, BMP 07/04/18 12:12 07/04/18 12:12 Active Medications Carbamazepine (Tegretol Oral Suspension -) 300 mg GT DAILY@1400 [facility] Last Admin: 07/06/18 13:40 Dose: 300 mg Carbamazepine (Tegretol Oral Suspension -) 400 mg GT BID@0700,2200 [facility] Last Admin: 07/07/18 06:08 Dose: 400 mg Clobazam (Onfi -) 5 mg PO DAILY [facility] Last Admin: 07/07/18 10:48 Dose: 5 mg Aztreonam 1 gm/ Dextrose 50 mls @ 100 mls/hr IVPB Q8H-IV [facility]; Protocol Last Admin: 07/07/18 12:34 Dose: 100 mls/hr Vancomycin HCl 1,250 mg/ (Dextrose) 250 mls @ 250 mls/2 hr IVPB Q24H [facility]; Protocol Last Admin: 07/06/18 15:31 Dose: 250 mls/2 hr Dextrose/Sodium Chloride (D5-1/2ns -) 1,000 mls @ 50 mls/hr IV ASDIR [facility] Last Admin: 07/07/18 12:30 Dose: 50 mls/hr Levalbuterol HCl (Xopenex) 0.31 mg IH RTID [facility] Last Admin: 07/07/18 08:15 Dose: 0.31 mg Methylprednisolone Sodium Succinate (Solu-Medrol -) 40 mg IVPUSH BID [facility] Last Admin: 07/07/18 10:48 Dose: 40 mg Non-Formulary Medication (Rufinamide [Banzel]) 1,600 mg GT BID [facility] Polyethylene Glycol (Miralax (For Daily Use) -) 17 gm GT DAILY [facility] Last Admin: 07/07/18 10:49 Dose: Not Given Topiramate (Topamax -) 300 mg GT DAILY [facility] Last Admin: 07/07/18 10:48 Dose: 300 mg Zonisamide (Zonisamide) 200 mg GT TID [facility] Last Admin: 07/07/18 06:08 Dose: 200 mg Zonisamide (Zonisamide) 50 mg GT HS [facility] Last Admin: 07/06/18 21:40 Dose: 50 mg A/P Pneumonia likely Aspiration Atelectasis Seizure Disorder Metal Retardation Cerebral Palsy - antibiotics per ID - decrease medrol - inhaled bronchodilators as needed - O2 to keep SpO2 >90% - aspiration precautions - DVT prophylaxis
--- NOTE | 2018-07-07 12:54 | PN ---
Progress Note, Physician History of Present Illness: sleeping non verbal - Current Medication List Current Medications: Active Medications Carbamazepine (Tegretol Oral Suspension -) 300 mg GT DAILY@1400 [facility] Last Admin: 07/06/18 13:40 Dose: 300 mg Carbamazepine (Tegretol Oral Suspension -) 400 mg GT BID@0700,2200 [facility] Last Admin: 07/07/18 06:08 Dose: 400 mg Clobazam (Onfi -) 5 mg PO DAILY [facility] Last Admin: 07/07/18 10:48 Dose: 5 mg Aztreonam 1 gm/ Dextrose 50 mls @ 100 mls/hr IVPB Q8H-IV [facility]; Protocol Last Admin: 07/07/18 12:34 Dose: 100 mls/hr Vancomycin HCl 1,250 mg/ (Dextrose) 250 mls @ 250 mls/2 hr IVPB Q24H [facility]; Protocol Last Admin: 07/06/18 15:31 Dose: 250 mls/2 hr Dextrose/Sodium Chloride (D5-1/2ns -) 1,000 mls @ 50 mls/hr IV ASDIR [facility] Last Admin: 07/07/18 12:30 Dose: 50 mls/hr Levalbuterol HCl (Xopenex) 0.31 mg IH RTID [facility] Last Admin: 07/07/18 08:15 Dose: 0.31 mg Methylprednisolone Sodium Succinate (Solu-Medrol -) 40 mg IVPUSH DAILY [facility] Non-Formulary Medication (Rufinamide [Banzel]) 1,600 mg GT BID [facility] Polyethylene Glycol (Miralax (For Daily Use) -) 17 gm GT DAILY [facility] Last Admin: 07/07/18 10:49 Dose: Not Given Topiramate (Topamax -) 300 mg GT DAILY [facility] Last Admin: 07/07/18 10:48 Dose: 300 mg Zonisamide (Zonisamide) 200 mg GT TID [facility] Last Admin: 07/07/18 06:08 Dose: 200 mg Zonisamide (Zonisamide) 50 mg GT HS [facility] Last Admin: 07/06/18 21:40 Dose: 50 mg - Objective Vital Signs: Vital Signs Temperature 97.2 F L 07/07/18 10:00 Pulse Rate 76 07/07/18 10:00 Respiratory Rate 20 07/07/18 10:00 Blood Pressure 104/52 L 07/07/18 10:00 O2 Sat by Pulse Oximetry (%) 100 07/07/18 09:00 Constitutional: Yes: No Distress Cardiovascular: Yes: Regular Rate and Rhythm Respiratory: Yes: Regular, On Nasal O2, Poor Air Entry Gastrointestinal: Yes: Normal Bowel Sounds, Other (peg tube) Musculoskeletal: Yes: WNL Extremities: Yes: Other Labs: CBC, BMP 07/04/18 12:12 07/04/18 12:12 INR, PTT INR 1.11 (0.83-1.09) H 06/30/18 14:41 Assessment/Plan Problem List - Problems (1) Pneumonia Code(s): J18.9 - PNEUMONIA, UNSPECIFIED ORGANISM (2) Cerebral palsy Code(s): G80.9 - CEREBRAL PALSY, UNSPECIFIED (3) Functional quadriplegia Code(s): R53.2 - FUNCTIONAL QUADRIPLEGIA (4) Respiratory distress Code(s): R06.03 - ACUTE RESPIRATORY DISTRESS (5) Scoliosis Code(s): M41.9 - SCOLIOSIS, UNSPECIFIED (6) Seizure Code(s): R56.9 - UNSPECIFIED CONVULSIONS plan continue abx npo final plan neded for the peg tube so feeding can occur chest physio
--- NOTE | 2018-07-07 16:04 | PN ---
Progress Note, Physician - Current Medication List Current Medications: Active Medications Carbamazepine (Tegretol Oral Suspension -) 300 mg GT DAILY@1400 [facility] Last Admin: 07/07/18 13:57 Dose: 300 mg Carbamazepine (Tegretol Oral Suspension -) 400 mg GT BID@0700,2200 [facility] Last Admin: 07/07/18 06:08 Dose: 400 mg Clobazam (Onfi -) 5 mg GT DAILY [facility] Clobazam (Onfi -) 10 mg PO HS [facility] Aztreonam 1 gm/ Dextrose 50 mls @ 100 mls/hr IVPB Q8H-IV [facility]; Protocol Last Admin: 07/07/18 12:34 Dose: 100 mls/hr Dextrose/Sodium Chloride (D5-1/2ns -) 1,000 mls @ 50 mls/hr IV ASDIR [facility] Last Admin: 07/07/18 15:16 Dose: Not Given Levalbuterol HCl (Xopenex) 0.31 mg IH RTID [facility] Last Admin: 07/07/18 14:17 Dose: Not Given Methylprednisolone Sodium Succinate (Solu-Medrol -) 40 mg IVPUSH DAILY [facility] Non-Formulary Medication (Rufinamide [Banzel]) 1,600 mg GT BID [facility] Polyethylene Glycol (Miralax (For Daily Use) -) 17 gm GT DAILY [facility] Last Admin: 07/07/18 10:49 Dose: Not Given Topiramate (Topamax -) 300 mg GT DAILY [facility] Last Admin: 07/07/18 10:48 Dose: 300 mg Zonisamide (Zonisamide) 200 mg GT TID [facility] Last Admin: 07/07/18 13:56 Dose: 200 mg Zonisamide (Zonisamide) 50 mg GT HS [facility] Last Admin: 07/06/18 21:40 Dose: 50 mg - Objective Vital Signs: Vital Signs Temperature 97.6 F 07/07/18 13:26 Pulse Rate 75 07/07/18 13:26 Respiratory Rate 20 07/07/18 13:26 Blood Pressure 111/68 07/07/18 13:26 O2 Sat by Pulse Oximetry (%) 100 07/07/18 09:00 Constitutional: Yes: Calm HENT: Yes: Atraumatic Neck: Yes: Supple Cardiovascular: Yes: Regular Rate and Rhythm Respiratory: Yes: CTA Bilaterally, Rhonchi Gastrointestinal: Yes: Normal Bowel Sounds Extremities: Yes: Deformity Edema: No Peripheral Pulses WNL: Yes Labs: CBC, BMP 07/04/18 12:12 07/04/18 12:12 INR, PTT INR 1.11 (0.83-1.09) H 06/30/18 14:41 Problem List - Problems (1) Pneumonia Assessment/Plan: iv abx frequenty suctions id on board Code(s): J18.9 - PNEUMONIA, UNSPECIFIED ORGANISM (2) Cerebral palsy Code(s): G80.9 - CEREBRAL PALSY, UNSPECIFIED Qualifiers: Qualified Code(s): G80.0 - Spastic quadriplegic cerebral palsy (3) Functional quadriplegia Code(s): R53.2 - FUNCTIONAL QUADRIPLEGIA (4) Respiratory distress Code(s): R06.03 - ACUTE RESPIRATORY DISTRESS (5) Scoliosis Code(s): M41.9 - SCOLIOSIS, UNSPECIFIED Qualifiers: Qualified Code(s): M41.9 - Scoliosis, unspecified (6) Seizure Assessment/Plan: continue home meds Code(s): R56.9 - UNSPECIFIED CONVULSIONS (7) Aspiration of gastric contents Assessment/Plan: upper gi seris wnl resume TF Code(s): T17.910A - GASTRIC CONTENTS IN RESP TRACT, PART UNSP CAUSE ASPHYX, INIT Qualifiers: Qualified Code(s): T17.910S - Gastric contents in respiratory tract, part unspecified causing asphyxiation, sequela (8) Aspiration pneumonia Assessment/Plan: feeds on hold Code(s): J69.0 - PNEUMONITIS DUE TO INHALATION OF FOOD AND VOMIT (9) Atelectasis of left lung Code(s): J98.11 - ATELECTASIS (10) Gastrostomy tube dependent Code(s): Z93.1 - GASTROSTOMY STATUS
--- NOTE | 2018-07-07 16:07 | PN ---
Progress Note, Physician History of Present Illness: 28yoM with CP, functional quadriplegia, intellectual disability, seizure disorder/epilepsy, scoliosis s/p spinal qasim, recurrent ?aspiration pneumonia, has surgically placed gastrostomy tube at time of Shahrzad fundoplication at least 15 years ago, dependent on GT for feeds and meds, used to live at home but is now resident at [facility] (about a year), admitted from there with fever and sats 96% RA with increased/thicker secretions. G-tube position was confirmed in radiology, but he has reportedly shown symptoms of recurrent aspiration with feeding, so GT feeds have been stopped. He gets all his meds and nutrition via tube. At baseline, he is nonverbal and does not follow commands, is wheelchair-bound, but occasionally makes eye contact or smiles. GI has seen patient. Given concern for recurrent aspiration with gastric feeds, surgery was asked to evaluate for possible surgical jejunostomy. Per conversation with patient's father: Gastrostomy was placed at time of Shahrzad fundoplication about 15 years ago (or more?) at [place]. Since then, they have had no problems with gastric feeding, reflux or emesis (never). While living at home (until about a year ago when he moved to [facility]), he did have problems with recurrent pneumonias, believed to be aspiration, more of oral secretions, which were thick as well as respiratory secretions. The family and home nurse learned techniques for aggressive chest PT, as well as deep pharyngeal suctioning (with Yankauer) and tracheal suctioning (with thin tube). He has a good cough reflex, and suctioning was enhanced when it could be induced. His episodes of pneumonia decreased dramatically, and these therapies were performed quite frequently at home. Since living at [place], his father Josefa did at one time speak to Dr. Melendez about Edouard's needs for frequent chest PT and appropriate suctioning, but he has still had occasions where nursing staff appeared to need reeducation about how to perform these in his presence. He is not aware of any instance in which Edouard has been known to actually vomit or regurgitate gastric contents. He is not convinced that any aspiration events are directly related to feeding, as opposed to oral secretions. Edouard had also seen a results technician more recently , who also suggested deep tracheal suctioning prn to help with this. He is seen and examined in bed, resting comfortably. Little response to exam, though his eyes open a little. G-tube is being used for meds, but not for feeds. He is getting chest PT bid and suctioning q shift and prn. Per nurse, PT and suctioning are very effective. He had UGI via GT this morning to evaluate for reflux into esophagus, and has had no problems since returning to floor, no resp distress or desats. - Current Medication List Current Medications: Active Medications Carbamazepine (Tegretol Oral Suspension -) 300 mg GT DAILY@1400 [facility] Last Admin: 07/07/18 13:57 Dose: 300 mg Carbamazepine (Tegretol Oral Suspension -) 400 mg GT BID@0700,2200 [facility] Last Admin: 07/07/18 06:08 Dose: 400 mg Clobazam (Onfi -) 5 mg PO DAILY [facility] Last Admin: 07/07/18 10:48 Dose: 5 mg Aztreonam 1 gm/ Dextrose 50 mls @ 100 mls/hr IVPB Q8H-IV BRAD; Protocol Last Admin: 07/07/18 12:34 Dose: 100 mls/hr Dextrose/Sodium Chloride (D5-1/2ns -) 1,000 mls @ 50 mls/hr IV ASDIR [facility] Last Admin: 07/07/18 15:16 Dose: Not Given Levalbuterol HCl (Xopenex) 0.31 mg IH RTID [facility] Last Admin: 07/07/18 14:17 Dose: Not Given Methylprednisolone Sodium Succinate (Solu-Medrol -) 40 mg IVPUSH DAILY [facility] Non-Formulary Medication (Rufinamide [Banzel]) 1,600 mg GT BID [facility] Polyethylene Glycol (Miralax (For Daily Use) -) 17 gm GT DAILY [facility] Last Admin: 07/07/18 10:49 Dose: Not Given Topiramate (Topamax -) 300 mg GT DAILY [facility] Last Admin: 07/07/18 10:48 Dose: 300 mg Zonisamide (Zonisamide) 200 mg GT TID [facility] Last Admin: 07/07/18 13:56 Dose: 200 mg Zonisamide (Zonisamide) 50 mg GT HS [facility] Last Admin: 07/06/18 21:40 Dose: 50 mg - Objective Vital Signs: Vital Signs Temperature 97.6 F 07/07/18 13:26 Pulse Rate 75 07/07/18 13:26 Respiratory Rate 20 07/07/18 13:26 Blood Pressure 111/68 07/07/18 13:26 O2 Sat by Pulse Oximetry (%) 100 07/07/18 09:00 Constitutional: Yes: Well Nourished, No Distress, Calm Eyes: Yes: Conjunctiva Clear, EOM Intact HENT: Yes: Atraumatic, Normocephalic, Drooling Respiratory: Yes: Regular, Diminished (shallow breathing, more diminished at bases), On Nasal O2 Gastrointestinal: Yes: Normal Bowel Sounds, Soft, Other (GT in place, site clean ). No: Distention, Tenderness Genitourinary: Yes: Other (condom catheter with light yellow urine) Extremities: Yes: External Rotation (BLE). No: Cool, Cyanosis Integumentary: No: Jaundice, Rash Neurological: Yes: Pre-Existing Deficit (CP/MR/sz), Unresponsive. No: Alert Labs: no new labs - ....Imaging X-ray: Report Reviewed, Image Reviewed (images personally reviewed - barium fills stomach and flows into SB, reaching ileum at 30mins; no evidence of gastroesophageal reflux over course of study) Problem List - Problems (1) S/P Shahrzad fundoplication (with gastrostomy tube placement) Assessment/Plan: Pt with surgically placed gastrostomy, done at time of Shahrzad fundoplication years ago long discussion with pt's father by phone - see hpi given new information, strongly suspect aspiration episodes are secondary to thick oral secretions, not gastric contents agree that patient will likely benefit from aggressive and frequent chest PT and deep suctioning (pharyngeal/tracheal) - both in hospital and at living facility increase chest PT to q4 hours at least, with suctioning same frequency and prn UGI via GT done with NO evidence of gastroesophageal reflux and no post-study respiratory issues would resume using gastrostomy for feeds and meds, according to his usual schedule BUT would ensure chest PT and deep suctioning immediately before starting feeds and again when finished, as well as PRN changing feeding site would have no impact on oropharyngeal aspiration if there is still any concern for need for distal feeding, would try GJ tube before considering anything permanent will discuss with Dr. Maria Code(s): Z93.1 - GASTROSTOMY STATUS (2) Functional quadriplegia Code(s): R53.2 - FUNCTIONAL QUADRIPLEGIA (3) Cerebral palsy Code(s): G80.9 - CEREBRAL PALSY, UNSPECIFIED Qualifiers: 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(s): G80.0 - Spastic quadriplegic cerebral palsy (4) Scoliosis Code(s): M41.9 - SCOLIOSIS, UNSPECIFIED Qualifiers: Scoliosis type: unspecified scoliosis Spinal region: thoracolumbar Qualified Code(s): M41.9 - Scoliosis, unspecified
[2018-07-07] MEDS: cloBAZam 10 MG TABLET GT SCH ×2 (16:35→23:42)
[2018-07-07] MEDS ORDERED: PT OWN MED DRAWER 7, Y5N ONE (20:52)
[2018-07-08] MEDS: AZTREONAM 1 GM in DEXTROSE 5%-WATER - 50 ML IVPB SCH ×3 (01:50→17:00)
[2018-07-08] MEDS ORDERED: PT OWN MED DRAWER 7, Y5N ONE (05:56)
[2018-07-08] MEDS: ZONISAMIDE 100 MG/10 ML ORAL SUSPENSION GT SCH ×4 (06:24→22:34)
[2018-07-08] MEDS: carBAMazepine 200 MG/10 ML UNIT-DOSE CUP GT SCH ×3 (06:24→22:31)
[2018-07-08] MEDS: LEVALBUTEROL HCL 0.63 MG/3 ML VIAL.NEB. IH SCH ×3 (07:55→19:00)
--- NOTE | 2018-07-08 09:53 | PN ---
Progress Note, Physician History of Present Illness: 28yoM with CP, functional quadriplegia, intellectual disability, seizure disorder/epilepsy, scoliosis s/p spinal qasim, recurrent ?aspiration pneumonia, has surgically placed gastrostomy tube at time of Shharzad fundoplication at least 15 years ago, dependent on GT for feeds and meds, used to live at home but is now resident at [facility] (about a year), admitted from there with fever and sats 96% RA with increased/thicker secretions. G-tube position was confirmed in radiology, but he has reportedly shown symptoms of recurrent aspiration with feeding, so GT feeds have been stopped. He gets all his meds and nutrition via tube. At baseline, he is nonverbal and does not follow commands, is wheelchair-bound, but occasionally makes eye contact or smiles. GI has seen patient. Given concern for recurrent aspiration with gastric feeds, surgery was asked to evaluate for possible surgical jejunostomy. Per conversation with patient's father: Gastrostomy was placed at time of Shahrzad fundoplication about 15 years ago (or more?) at [place]. Since then, they have had no problems with gastric feeding, reflux or emesis (never). While living at home (until about a year ago when he moved to [facility]), he did have problems with recurrent pneumonias, believed to be aspiration, more of oral secretions, which were thick as well as respiratory secretions. The family and home nurse learned techniques for aggressive chest PT, as well as deep pharyngeal suctioning (with Yankauer) and tracheal suctioning (with thin tube). He has a good cough reflex, and suctioning was enhanced when it could be induced. His episodes of pneumonia decreased dramatically, and these therapies were performed quite frequently at home. Since living at [place], his father Josefa did at one time speak to Dr. Melendez about Edouard's needs for frequent chest PT and appropriate suctioning, but he has still had occasions where nursing staff appeared to need reeducation about how to perform these in his presence. He is not aware of any instance in which Edouard has been known to actually vomit or regurgitate gastric contents. He is not convinced that any aspiration events are directly related to feeding, as opposed to oral secretions. Edouard had also seen a director design more recently , who also suggested deep tracheal suctioning prn to help with this. He is seen and examined in bed, resting comfortably. Little response to exam, though his eyes are open. G-tube is being used for meds. Tube feeds were resumed at low rate last night, but per nurse, he had gagging, so feeds were stopped. Unclear whether he was suctioned deeply at the time, or had chest PT with suctioning for oral secretions right then. Chest PT order was changed to q4H yesterday with suctioning. He had UGI via GT yesterday to evaluate for reflux into esophagus, which showed none. - Current Medication List Current Medications: Active Medications Carbamazepine (Tegretol Oral Suspension -) 300 mg GT DAILY@1400 [facility] Last Admin: 07/07/18 13:57 Dose: 300 mg Carbamazepine (Tegretol Oral Suspension -) 400 mg GT BID@0700,2200 [facility] Last Admin: 07/08/18 06:24 Dose: 400 mg Clobazam (Onfi -) 5 mg GT DAILY [facility] Last Admin: 07/07/18 16:35 Dose: Not Given Clobazam (Onfi -) 10 mg GT HS [facility] Last Admin: 07/07/18 23:42 Dose: 10 mg Aztreonam 1 gm/ Dextrose 50 mls @ 100 mls/hr IVPB Q8H-IV BRAD; Protocol Last Admin: 07/08/18 01:50 Dose: 100 mls/hr Dextrose/Sodium Chloride (D5-1/2ns -) 1,000 mls @ 50 mls/hr IV ASDIR [facility] Last Admin: 07/07/18 15:16 Dose: Not Given Levalbuterol HCl (Xopenex) 0.31 mg IH RTID [facility] Last Admin: 07/08/18 07:55 Dose: 0.31 mg Methylprednisolone Sodium Succinate (Solu-Medrol -) 40 mg IVPUSH DAILY [facility] Non-Formulary Medication (Rufinamide [Banzel]) 1,600 mg GT BID [facility] Polyethylene Glycol (Miralax (For Daily Use) -) 17 gm GT DAILY [facility] Last Admin: 07/07/18 10:49 Dose: Not Given Topiramate (Topamax -) 300 mg GT DAILY [facility] Last Admin: 07/07/18 10:48 Dose: 300 mg Zonisamide (Zonisamide) 200 mg GT TID [facility] Last Admin: 07/08/18 06:24 Dose: 200 mg Zonisamide (Zonisamide) 50 mg GT HS [facility] Last Admin: 07/07/18 22:00 Dose: 50 mg - Objective Vital Signs: Vital Signs Temperature 97.6 F 07/08/18 06:00 Pulse Rate 95 H 07/08/18 06:00 Respiratory Rate 20 07/08/18 06:00 Blood Pressure 114/70 07/08/18 06:00 O2 Sat by Pulse Oximetry (%) 98 07/07/18 21:00 Constitutional: Yes: Well Nourished, No Distress, Calm Eyes: Yes: Conjunctiva Clear, EOM Intact HENT: Yes: Atraumatic, Normocephalic, Drooling Respiratory: Yes: Regular, On Nasal O2 Gastrointestinal: Yes: Soft, Other (G-tube in place, site clean). No: Distention, Tenderness Extremities: Yes: External Rotation (BLE). No: Cool, Cyanosis Integumentary: No: Jaundice, Rash Neurological: Yes: Alert (awake but not responsive), Pre-Existing Deficit (CP/MR /sz), Unresponsive Psychiatric: Yes: Alert. No: Agitated Labs: no new labs - ....Imaging X-ray: Report Reviewed, Image Reviewed (images reviewed yesterday - no reflux on UGI via GT with barium) Problem List - Problems (1) S/P Shahrzad fundoplication (with gastrostomy tube placement) Assessment/Plan: Pt with surgically placed gastrostomy, done at time of Shahrzad fundoplication years ago long discussion with pt's father by phone - see hpi given his information, strongly suspect aspiration episodes are secondary to thick oral secretions, not gastric contents agree that patient will likely benefit from aggressive and frequent chest PT and deep suctioning (pharyngeal/tracheal) - both in hospital and at living facility increase chest PT to q4 hours at least, with suctioning same frequency and prn UGI via GT done with NO evidence of gastroesophageal reflux and no post-study respiratory issues would resume using gastrostomy for feeds and meds BUT would ensure chest PT and deep suctioning immediately before starting feeds and every few hours, as well as PRN coughing or gagging changing feeding site would have no impact on oropharyngeal aspiration if there is still any concern for need for distal feeding, would try GJ tube before considering anything permanent discussed with Dr. Maria Code(s): Z93.1 - GASTROSTOMY STATUS (2) Functional quadriplegia Code(s): R53.2 - FUNCTIONAL QUADRIPLEGIA (3) Cerebral palsy Code(s): G80.9 - CEREBRAL PALSY, UNSPECIFIED Qualifiers: 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(s): G80.0 - Spastic quadriplegic cerebral palsy (4) Scoliosis Code(s): M41.9 - SCOLIOSIS, UNSPECIFIED Qualifiers: Scoliosis type: unspecified scoliosis Spinal region: thoracolumbar Qualified Code(s): M41.9 - Scoliosis, unspecified
--- NOTE | 2018-07-08 10:33 | PN ---
Progress Note, Physician History of Present Illness: 28yoM with CP, functional quadriplegia, intellectual disability, seizure disorder/epilepsy, scoliosis s/p spinal qasim, recurrent aspiration pneumonia, has surgically placed gastrostomy tube since sometime prior to 10/09 (first visit to [facility]), dependent on GT for feeds and meds, used to live at home but is now resident at [facility], admitted s/p seziure--hyponatremia improved. no new SZ reported seen by surgery-no evidence of GI reflux on Barium swallow - Current Medication List Current Medications: Active Medications Carbamazepine (Tegretol Oral Suspension -) 300 mg GT DAILY@1400 [facility] Last Admin: 07/07/18 13:57 Dose: 300 mg Carbamazepine (Tegretol Oral Suspension -) 400 mg GT BID@0700,2200 [facility] Last Admin: 07/08/18 06:24 Dose: 400 mg Clobazam (Onfi -) 5 mg GT DAILY [facility] Last Admin: 07/07/18 16:35 Dose: Not Given Clobazam (Onfi -) 10 mg GT HS [facility] Last Admin: 07/07/18 23:42 Dose: 10 mg Aztreonam 1 gm/ Dextrose 50 mls @ 100 mls/hr IVPB Q8H-IV BRAD; Protocol Last Admin: 07/08/18 01:50 Dose: 100 mls/hr Dextrose/Sodium Chloride (D5-1/2ns -) 1,000 mls @ 50 mls/hr IV ASDIR [facility] Last Admin: 07/07/18 15:16 Dose: Not Given Levalbuterol HCl (Xopenex) 0.31 mg IH RTID [facility] Last Admin: 07/08/18 07:55 Dose: 0.31 mg Methylprednisolone Sodium Succinate (Solu-Medrol -) 40 mg IVPUSH DAILY [facility] Non-Formulary Medication (Rufinamide [Banzel]) 1,600 mg GT BID [facility] Polyethylene Glycol (Miralax (For Daily Use) -) 17 gm GT DAILY [facility] Last Admin: 07/07/18 10:49 Dose: Not Given Topiramate (Topamax -) 300 mg GT DAILY [facility] Last Admin: 07/07/18 10:48 Dose: 300 mg Zonisamide (Zonisamide) 200 mg GT TID [facility] Last Admin: 07/08/18 06:24 Dose: 200 mg Zonisamide (Zonisamide) 50 mg GT HS [facility] Last Admin: 07/07/18 22:00 Dose: 50 mg - Objective Vital Signs: Vital Signs Temperature 97.6 F 07/08/18 06:00 Pulse Rate 95 H 07/08/18 06:00 Respiratory Rate 20 07/08/18 06:00 Blood Pressure 114/70 07/08/18 06:00 O2 Sat by Pulse Oximetry (%) 98 07/07/18 21:00 Labs: CBC, BMP 07/04/18 12:12 07/04/18 12:12 INR, PTT INR 1.11 (0.83-1.09) H 06/30/18 14:41 Problem List - Problems (1) Gastrostomy tube dependent Code(s): Z93.1 - GASTROSTOMY STATUS (2) S/P Shahrzad fundoplication (with gastrostomy tube placement) Code(s): Z93.1 - GASTROSTOMY STATUS (3) Hyponatremia Code(s): E87.1 - HYPO-OSMOLALITY AND HYPONATREMIA (4) Cerebral palsy Code(s): G80.9 - CEREBRAL PALSY, UNSPECIFIED Qualifiers: 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(s): G80.0 - Spastic quadriplegic cerebral palsy Assessment/Plan 28yoM with CP, functional quadriplegia, intellectual disability, seizure disorder/epilepsy, scoliosis s/p spinal qasim, recurrent aspiration pneumonia, has surgically placed gastrostomy tube since sometime prior to 10/09 (first visit to [facility]), dependent on GT for feeds and meds, used to live at home but is now resident at [facility], admitted s/p seziure--hyponatremia improved. no new SZ reported-though has intractable epilepsy seen by surgery-no evidence of GI reflux on Barium swallow cont topamax, zonegran, onfi neuro cleared DR BREWER
[2018-07-08] MEDS: methylPREDNISolone NA SUCC 40 MG/1 ML VIAL IVPUSH SCH (10:54)
[2018-07-08] MEDS: TOPIRAMATE 100 MG TABLET GT SCH (10:58)
[2018-07-08] MEDS: cloBAZam 10 MG TABLET GT SCH ×2 (10:58→22:32)
[2018-07-08] MEDS: POLYETHYLENE GLYCOL 3350 119 GM BTL GT SCH (10:59)
[2018-07-08] MEDS: DEXTROSE 5%-0.45% SALINE 1,000 ML IV SCH (11:06)
--- NOTE | 2018-07-08 11:55 | PN ---
Progress Note (short form) - Note Progress Note: PULMONARY Pt nonverbal. No fevers recorded. Saturating well. Vital Signs Period Temp Pulse Resp BP Sys/Grossman Pulse Ox Last 24 Hr 97.6 F-98.1 F 75-95 20-20 111-142/57-78 98 Gen: nonverbal Heart: RRR Lung: decreased breath sounds at the bases Abd: soft, nontender Ext: contracted CBC, BMP 07/04/18 12:12 07/04/18 12:12 Active Medications Carbamazepine (Tegretol Oral Suspension -) 300 mg GT DAILY@1400 [facility] Last Admin: 07/07/18 13:57 Dose: 300 mg Carbamazepine (Tegretol Oral Suspension -) 400 mg GT BID@0700,2200 [facility] Last Admin: 07/08/18 06:24 Dose: 400 mg Clobazam (Onfi -) 5 mg GT DAILY [facility] Last Admin: 07/08/18 10:58 Dose: 5 mg Clobazam (Onfi -) 10 mg GT HS [facility] Last Admin: 07/07/18 23:42 Dose: 10 mg Aztreonam 1 gm/ Dextrose 50 mls @ 100 mls/hr IVPB Q8H-IV BRAD; Protocol Last Admin: 07/08/18 10:53 Dose: 100 mls/hr Dextrose/Sodium Chloride (D5-1/2ns -) 1,000 mls @ 50 mls/hr IV ASDIR [facility] Last Admin: 07/08/18 11:06 Dose: 50 mls/hr Levalbuterol HCl (Xopenex) 0.31 mg IH RTID [facility] Last Admin: 07/08/18 07:55 Dose: 0.31 mg Methylprednisolone Sodium Succinate (Solu-Medrol -) 40 mg IVPUSH DAILY [facility] Last Admin: 07/08/18 10:54 Dose: 40 mg Non-Formulary Medication (Rufinamide [Banzel]) 1,600 mg GT BID [facility] Polyethylene Glycol (Miralax (For Daily Use) -) 17 gm GT DAILY [facility] Last Admin: 07/08/18 10:59 Dose: 17 gm Topiramate (Topamax -) 300 mg GT DAILY [facility] Last Admin: 07/08/18 10:58 Dose: 300 mg Zonisamide (Zonisamide) 200 mg GT TID [facility] Last Admin: 07/08/18 06:24 Dose: 200 mg Zonisamide (Zonisamide) 50 mg GT HS [facility] Last Admin: 07/07/18 22:00 Dose: 50 mg A/P Pneumonia likely Aspiration Atelectasis Seizure Disorder Metal Retardation Cerebral Palsy - antibiotics per ID - taper off medrol - inhaled bronchodilators as needed - O2 to keep SpO2 >90% - aspiration precautions - DVT prophylaxis
--- NOTE | 2018-07-08 13:13 | PN ---
Progress Note, Physician History of Present Illness: patient npo stable otherwise - Current Medication List Current Medications: Active Medications Carbamazepine (Tegretol Oral Suspension -) 300 mg GT DAILY@1400 [facility] Last Admin: 07/07/18 13:57 Dose: 300 mg Carbamazepine (Tegretol Oral Suspension -) 400 mg GT BID@0700,2200 [facility] Last Admin: 07/08/18 06:24 Dose: 400 mg Clobazam (Onfi -) 5 mg GT DAILY [facility] Last Admin: 07/08/18 10:58 Dose: 5 mg Clobazam (Onfi -) 10 mg GT HS [facility] Last Admin: 07/07/18 23:42 Dose: 10 mg Aztreonam 1 gm/ Dextrose 50 mls @ 100 mls/hr IVPB Q8H-IV BRAD; Protocol Last Admin: 07/08/18 10:53 Dose: 100 mls/hr Dextrose/Sodium Chloride (D5-1/2ns -) 1,000 mls @ 50 mls/hr IV ASDIR [facility] Last Admin: 07/08/18 11:06 Dose: 50 mls/hr Levalbuterol HCl (Xopenex) 0.31 mg IH RTID [facility] Last Admin: 07/08/18 07:55 Dose: 0.31 mg Methylprednisolone Sodium Succinate (Solu-Medrol -) 40 mg IVPUSH DAILY [facility] Last Admin: 07/08/18 10:54 Dose: 40 mg Non-Formulary Medication (Rufinamide [Banzel]) 1,600 mg GT BID [facility] Polyethylene Glycol (Miralax (For Daily Use) -) 17 gm GT DAILY [facility] Last Admin: 07/08/18 10:59 Dose: 17 gm Topiramate (Topamax -) 300 mg GT DAILY [facility] Last Admin: 07/08/18 10:58 Dose: 300 mg Zonisamide (Zonisamide) 200 mg GT TID [facility] Last Admin: 07/08/18 06:24 Dose: 200 mg Zonisamide (Zonisamide) 50 mg GT HS [facility] Last Admin: 07/07/18 22:00 Dose: 50 mg - Objective Vital Signs: Vital Signs Temperature 97.8 F 07/08/18 10:00 Pulse Rate 81 07/08/18 10:00 Respiratory Rate 20 07/08/18 10:00 Blood Pressure 107/68 07/08/18 10:00 O2 Sat by Pulse Oximetry (%) 100 07/08/18 09:00 Constitutional: Yes: No Distress, Calm Cardiovascular: Yes: Regular Rate and Rhythm Respiratory: Yes: Regular, CTA Bilaterally Gastrointestinal: Yes: Normal Bowel Sounds, Soft, Other (peg in place) Musculoskeletal: Yes: WNL Extremities: Yes: Other Neurological: Yes: Alert, Other Psychiatric: Yes: Other Labs: CBC, BMP 07/04/18 12:12 07/04/18 12:12 INR, PTT INR 1.11 (0.83-1.09) H 06/30/18 14:41 Assessment/Plan Problem List - Problems (1) Pneumonia Code(s): J18.9 - PNEUMONIA, UNSPECIFIED ORGANISM (2) Cerebral palsy Code(s): G80.9 - CEREBRAL PALSY, UNSPECIFIED (3) Functional quadriplegia Code(s): R53.2 - FUNCTIONAL QUADRIPLEGIA (4) Respiratory distress Code(s): R06.03 - ACUTE RESPIRATORY DISTRESS (5) Scoliosis Code(s): M41.9 - SCOLIOSIS, UNSPECIFIED (6) Seizure Code(s): R56.9 - UNSPECIFIED CONVULSIONS plan continue abx npo final plan neded for the peg tube so feeding can occur chest physio
--- NOTE | 2018-07-08 15:52 | PN ---
Progress Note, Physician History of Present Illness: per RN not toleraitng tube feeds...now TF on hold - Current Medication List Current Medications: Active Medications Carbamazepine (Tegretol Oral Suspension -) 300 mg GT DAILY@1400 [facility] Last Admin: 07/08/18 14:09 Dose: 300 mg Carbamazepine (Tegretol Oral Suspension -) 400 mg GT BID@0700,2200 [facility] Last Admin: 07/08/18 06:24 Dose: 400 mg Clobazam (Onfi -) 5 mg GT DAILY [facility] Last Admin: 07/08/18 10:58 Dose: 5 mg Clobazam (Onfi -) 10 mg GT HS [facility] Last Admin: 07/07/18 23:42 Dose: 10 mg Aztreonam 1 gm/ Dextrose 50 mls @ 100 mls/hr IVPB Q8H-IV [facility]; Protocol Last Admin: 07/08/18 10:53 Dose: 100 mls/hr Dextrose/Sodium Chloride (D5-1/2ns -) 1,000 mls @ 50 mls/hr IV ASDIR [facility] Last Admin: 07/08/18 11:06 Dose: 50 mls/hr Levalbuterol HCl (Xopenex) 0.31 mg IH RTID [facility] Last Admin: 07/08/18 07:55 Dose: 0.31 mg Methylprednisolone Sodium Succinate (Solu-Medrol -) 40 mg IVPUSH DAILY [facility] Last Admin: 07/08/18 10:54 Dose: 40 mg Non-Formulary Medication (Rufinamide [Banzel]) 1,600 mg GT BID [facility] Polyethylene Glycol (Miralax (For Daily Use) -) 17 gm GT DAILY [facility] Last Admin: 07/08/18 10:59 Dose: 17 gm Topiramate (Topamax -) 300 mg GT DAILY [facility] Last Admin: 07/08/18 10:58 Dose: 300 mg Zonisamide (Zonisamide) 200 mg GT TID [facility] Last Admin: 07/08/18 14:11 Dose: 200 mg Zonisamide (Zonisamide) 50 mg GT HS [facility] Last Admin: 07/07/18 22:00 Dose: 50 mg - Objective Vital Signs: Vital Signs Temperature 98.3 F 07/08/18 14:05 Pulse Rate 78 07/08/18 14:05 Respiratory Rate 20 07/08/18 14:05 Blood Pressure 113/69 01/15/19 14:05 O2 Sat by Pulse Oximetry (%) 100 07/08/18 09:00 Constitutional: Yes: No Distress HENT: Yes: Atraumatic Neck: Yes: Supple Cardiovascular: Yes: Regular Rate and Rhythm Respiratory: Yes: CTA Bilaterally Gastrointestinal: Yes: Normal Bowel Sounds Extremities: Yes: Deformity Edema: No Peripheral Pulses WNL: Yes Labs: CBC, BMP 07/04/18 12:12 07/04/18 12:12 INR, PTT INR 1.11 (0.83-1.09) H 06/30/18 14:41 Problem List - Problems (1) Pneumonia Assessment/Plan: iv abx frequenty suctions, chest pt id on board Code(s): J18.9 - PNEUMONIA, UNSPECIFIED ORGANISM (2) Cerebral palsy Code(s): G80.9 - CEREBRAL PALSY, UNSPECIFIED Qualifiers: 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(s): G80.0 - Spastic quadriplegic cerebral palsy (3) Functional quadriplegia Code(s): R53.2 - FUNCTIONAL QUADRIPLEGIA (4) Respiratory distress Code(s): R06.03 - ACUTE RESPIRATORY DISTRESS (5) Scoliosis Code(s): M41.9 - SCOLIOSIS, UNSPECIFIED Qualifiers: Scoliosis type: unspecified scoliosis Spinal region: thoracolumbar Qualified Code(s): M41.9 - Scoliosis, unspecified (6) Seizure Code(s): R56.9 - UNSPECIFIED CONVULSIONS (7) Aspiration of gastric contents Assessment/Plan: upper gi seris wnl resume TF Code(s): T17.910A - GASTRIC CONTENTS IN RESP TRACT, PART UNSP CAUSE ASPHYX, INIT Qualifiers: Encounter type: sequela Qualified Code(s): T17.910S - Gastric contents in respiratory tract, part unspecified causing asphyxiation, sequela (8) Aspiration pneumonia Assessment/Plan: feeds on hold on abx steroids Code(s): J69.0 - PNEUMONITIS DUE TO INHALATION OF FOOD AND VOMIT (9) Atelectasis of left lung Code(s): J98.11 - ATELECTASIS (10) Gastrostomy tube dependent Code(s): Z93.1 - GASTROSTOMY STATUS
[2018-07-08] MEDS: AMINO ACIDS 4.25%/D5W 1,000 ML IV SCH (21:00)
[2018-07-09] MEDS: AZTREONAM 1 GM in DEXTROSE 5%-WATER - 50 ML IVPB SCH ×3 (01:32→18:01)
[2018-07-09] MEDS: carBAMazepine 200 MG/10 ML UNIT-DOSE CUP GT SCH ×3 (06:46→22:25)
[2018-07-09] MEDS: ZONISAMIDE 100 MG/10 ML ORAL SUSPENSION GT SCH ×4 (06:47→22:24)
[2018-07-09] MEDS: LEVALBUTEROL HCL 0.63 MG/3 ML VIAL.NEB. IH SCH ×3 (07:32→19:50)
--- NOTE | 2018-07-09 09:31 | PN ---
Progress Note, Physician History of Present Illness: clinically stable on clinimax - Current Medication List Current Medications: Active Medications Carbamazepine (Tegretol Oral Suspension -) 300 mg GT DAILY@1400 [facility] Last Admin: 07/08/18 14:09 Dose: 300 mg Carbamazepine (Tegretol Oral Suspension -) 400 mg GT BID@0700,2200 [facility] Last Admin: 07/09/18 06:46 Dose: 400 mg Clobazam (Onfi -) 5 mg GT DAILY [facility] Last Admin: 07/08/18 10:58 Dose: 5 mg Clobazam (Onfi -) 10 mg GT HS [facility] Last Admin: 07/08/18 22:32 Dose: 10 mg Aztreonam 1 gm/ Dextrose 50 mls @ 100 mls/hr IVPB Q8H-IV [facility]; Protocol Last Admin: 07/09/18 01:32 Dose: 100 mls/hr Amino Acids (Clinimix -) 1,000 mls @ 42 mls/hr IV Q24H [facility] Last Admin: 07/08/18 21:00 Dose: 42 mls/hr Levalbuterol HCl (Xopenex) 0.31 mg IH RTID [facility] Last Admin: 07/09/18 07:32 Dose: Not Given Methylprednisolone Sodium Succinate (Solu-Medrol -) 40 mg IVPUSH DAILY [facility] Last Admin: 07/08/18 10:54 Dose: 40 mg Non-Formulary Medication (Rufinamide [Banzel]) 1,600 mg GT BID [facility] Polyethylene Glycol (Miralax (For Daily Use) -) 17 gm GT DAILY [facility] Last Admin: 07/08/18 10:59 Dose: 17 gm Topiramate (Topamax -) 300 mg GT DAILY [facility] Last Admin: 07/08/18 10:58 Dose: 300 mg Zonisamide (Zonisamide) 200 mg GT TID [facility] Last Admin: 07/09/18 06:47 Dose: 200 mg Zonisamide (Zonisamide) 50 mg GT HS [facility] Last Admin: 07/08/18 22:34 Dose: 50 mg - Objective Vital Signs: Vital Signs Temperature 98.1 F 07/09/18 06:16 Pulse Rate 68 07/09/18 06:16 Respiratory Rate 20 07/09/18 06:16 Blood Pressure 95/58 L 07/09/18 06:16 O2 Sat by Pulse Oximetry (%) 98 07/08/18 21:00 Constitutional: Yes: No Distress, Calm Cardiovascular: Yes: Regular Rate and Rhythm Respiratory: Yes: Regular, On Nasal O2, Poor Air Entry (bases) Gastrointestinal: Yes: Normal Bowel Sounds, Soft Musculoskeletal: Yes: WNL Extremities: Yes: Other Wound/Incision: Yes: Other Neurological: Yes: Alert Psychiatric: Yes: Alert, Other Labs: CBC, BMP 07/04/18 12:12 07/04/18 12:12 INR, PTT INR 1.11 (0.83-1.09) H 06/30/18 14:41 Assessment/Plan Problem List - Problems (1) Pneumonia Code(s): J18.9 - PNEUMONIA, UNSPECIFIED ORGANISM (2) Cerebral palsy Code(s): G80.9 - CEREBRAL PALSY, UNSPECIFIED (3) Functional quadriplegia Code(s): R53.2 - FUNCTIONAL QUADRIPLEGIA (4) Respiratory distress Code(s): R06.03 - ACUTE RESPIRATORY DISTRESS (5) Scoliosis Code(s): M41.9 - SCOLIOSIS, UNSPECIFIED (6) Seizure Code(s): R56.9 - UNSPECIFIED CONVULSIONS plan continue abx will consider stopping abx tomorrow after trying to feed him asp precautions
[2018-07-09] MEDS: methylPREDNISolone NA SUCC 40 MG/1 ML VIAL IVPUSH SCH (10:34)
[2018-07-09] MEDS: POLYETHYLENE GLYCOL 3350 119 GM BTL GT SCH (10:35)
[2018-07-09] MEDS: cloBAZam 10 MG TABLET GT SCH ×2 (10:35→22:25)
[2018-07-09] MEDS: TOPIRAMATE 100 MG TABLET GT SCH (10:36)
[2018-07-09] MEDS: SCOPOLAMINE HYDROBROMIDE 1 PATCH PATCH.TD72 TD SCH (12:29)
--- NOTE | 2018-07-09 14:52 | PN ---
Progress Note, Physician History of Present Illness: PULMONARY ALERT,NO DISTRESS,LESS CONGESTION - Current Medication List Current Medications: Active Medications Carbamazepine (Tegretol Oral Suspension -) 300 mg GT DAILY@1400 [facility] Last Admin: 07/09/18 13:33 Dose: 300 mg Carbamazepine (Tegretol Oral Suspension -) 400 mg GT BID@0700,2200 [facility] Last Admin: 07/09/18 06:46 Dose: 400 mg Clobazam (Onfi -) 5 mg GT DAILY [facility] Last Admin: 07/09/18 10:35 Dose: 5 mg Clobazam (Onfi -) 10 mg GT HS [facility] Last Admin: 07/08/18 22:32 Dose: 10 mg Aztreonam 1 gm/ Dextrose 50 mls @ 100 mls/hr IVPB Q8H-IV [facility]; Protocol Last Admin: 07/09/18 10:35 Dose: 100 mls/hr Amino Acids (Clinimix -) 1,000 mls @ 42 mls/hr IV Q24H [facility] Last Admin: 07/08/18 21:00 Dose: 42 mls/hr Levalbuterol HCl (Xopenex) 0.31 mg IH RTID [facility] Last Admin: 07/09/18 14:40 Dose: 0.31 mg Methylprednisolone Sodium Succinate (Solu-Medrol -) 40 mg IVPUSH DAILY [facility] Last Admin: 07/09/18 10:34 Dose: 40 mg Non-Formulary Medication (Rufinamide [Banzel]) 1,600 mg GT BID [facility] Polyethylene Glycol (Miralax (For Daily Use) -) 17 gm GT DAILY [facility] Last Admin: 07/09/18 10:35 Dose: 17 gm Scopolamine HBr (Transderm-Scop -) 1 patch TD Q3D@1000 [facility] Last Admin: 07/09/18 12:29 Dose: 1 patch Topiramate (Topamax -) 300 mg GT DAILY [facility] Last Admin: 07/09/18 10:36 Dose: 300 mg Zonisamide (Zonisamide) 200 mg GT TID [facility] Last Admin: 07/09/18 13:33 Dose: 200 mg Zonisamide (Zonisamide) 50 mg GT HS [facility] Last Admin: 07/08/18 22:34 Dose: 50 mg - Objective Vital Signs: Vital Signs Temperature 98.4 F 07/09/18 14:17 Pulse Rate 82 07/09/18 14:17 Respiratory Rate 20 07/09/18 14:17 Blood Pressure 115/71 07/09/18 14:17 O2 Sat by Pulse Oximetry (%) 99 07/09/18 09:00 Constitutional: Yes: Well Nourished, Calm Eyes: Yes: WNL HENT: Yes: WNL Neck: Yes: WNL Cardiovascular: Yes: Regular Rate and Rhythm, S1, S2 Respiratory: Yes: Rhonchi (FEW RHONCHI) Gastrointestinal: Yes: Normal Bowel Sounds, Soft Extremities: Yes: Other (CONTRACTED) Labs: CBC, BMP 07/04/18 12:12 Problem List - Problems (1) Atelectasis of left lung Code(s): J98.11 - ATELECTASIS (2) Pneumonia Code(s): J18.9 - PNEUMONIA, UNSPECIFIED ORGANISM (3) Allergy to multiple antibiotics Code(s): Z88.1 - ALLERGY STATUS TO OTHER ANTIBIOTIC AGENTS STATUS (4) Cerebral palsy Code(s): G80.9 - CEREBRAL PALSY, UNSPECIFIED Qualifiers: 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(s): G80.0 - Spastic quadriplegic cerebral palsy (5) Functional quadriplegia Code(s): R53.2 - FUNCTIONAL QUADRIPLEGIA (6) Respiratory distress Code(s): R06.03 - ACUTE RESPIRATORY DISTRESS (7) Scoliosis Code(s): M41.9 - SCOLIOSIS, UNSPECIFIED Qualifiers: Scoliosis type: unspecified scoliosis Spinal region: thoracolumbar Qualified Code(s): M41.9 - Scoliosis, unspecified (8) Seizure Code(s): R56.9 - UNSPECIFIED CONVULSIONS (9) PNA (pneumonia) Code(s): J18.9 - PNEUMONIA, UNSPECIFIED ORGANISM Qualifiers: Pneumonia type: due to unspecified organism Laterality: unspecified laterality Lung location: unspecified part of lung Qualified Code(s): J18.9 - Pneumonia, unspecified organism (10) Aspiration pneumonia Code(s): J69.0 - PNEUMONITIS DUE TO INHALATION OF FOOD AND VOMIT (11) SOB (shortness of breath) Code(s): R06.02 - SHORTNESS OF BREATH Assessment/Plan IMP RESPIRATORY DISTRESS IMPROVING PNEUMONIA LIKELY RECURRENT ASPIRATION LEFT LUNG CONSOLIDATION/ATELECTASIS SEIZURES CEREBRAL PALSY MENTAL RETARDATION SEVERE SCOLIOSIS PLAN ABX PER ID INHALED BRONCHODILATORS MEDROL TAPER O2 ASPIRATION PRECAUTIONS F/U CHEST X-RAYS FREQUENT SUCTIONING DR [place] Problem List - Problems (1) Atelectasis of left lung Code(s): J98.11 - ATELECTASIS (2) Pneumonia Code(s): J18.9 - PNEUMONIA, UNSPECIFIED ORGANISM (3) Allergy to multiple antibiotics Code(s): Z88.1 - ALLERGY STATUS TO OTHER ANTIBIOTIC AGENTS STATUS (4) Cerebral palsy Code(s): G80.9 - CEREBRAL PALSY, UNSPECIFIED (5) Functional quadriplegia Code(s): R53.2 - FUNCTIONAL QUADRIPLEGIA (6) Respiratory distress Code(s): R06.03 - ACUTE RESPIRATORY DISTRESS (7) Scoliosis Code(s): M41.9 - SCOLIOSIS, UNSPECIFIED (8) Seizure Code(s): R56.9 - UNSPECIFIED CONVULSIONS (9) PNA (pneumonia) Code(s): J18.9 - PNEUMONIA, UNSPECIFIED ORGANISM Qualifiers: Pneumonia type: due to unspecified organism Laterality: unspecified laterality Lung location: unspecified part of lung Qualified Code(s): J18.9 - Pneumonia, unspecified organism (10) Aspiration pneumonia Code(s): J69.0 - PNEUMONITIS DUE TO INHALATION OF FOOD AND VOMIT (11) SOB (shortness of breath) Code(s): R06.02 - SHORTNESS OF BREATH
[2018-07-09] MEDS: AMINO ACIDS 4.25%/D5W 1,000 ML IV SCH (16:53)
--- NOTE | 2018-07-09 17:04 | PN ---
Progress Note, Physician History of Present Illness: on scopolamine patch - Current Medication List Current Medications: Active Medications Carbamazepine (Tegretol Oral Suspension -) 300 mg GT DAILY@1400 [facility] Last Admin: 07/09/18 13:33 Dose: 300 mg Carbamazepine (Tegretol Oral Suspension -) 400 mg GT BID@0700,2200 [facility] Last Admin: 07/09/18 06:46 Dose: 400 mg Clobazam (Onfi -) 5 mg GT DAILY [facility] Last Admin: 07/09/18 10:35 Dose: 5 mg Clobazam (Onfi -) 10 mg GT HS [facility] Last Admin: 07/08/18 22:32 Dose: 10 mg Aztreonam 1 gm/ Dextrose 50 mls @ 100 mls/hr IVPB Q8H-IV [facility]; Protocol Last Admin: 07/09/18 10:35 Dose: 100 mls/hr Amino Acids (Clinimix -) 1,000 mls @ 42 mls/hr IV Q24H [facility] Last Admin: 07/09/18 16:53 Dose: 42 mls/hr Levalbuterol HCl (Xopenex) 0.31 mg IH RTID [facility] Last Admin: 07/09/18 14:40 Dose: 0.31 mg Methylprednisolone Sodium Succinate (Solu-Medrol -) 40 mg IVPUSH DAILY [facility] Last Admin: 07/09/18 10:34 Dose: 40 mg Non-Formulary Medication (Rufinamide [Banzel]) 1,600 mg GT BID [facility] Polyethylene Glycol (Miralax (For Daily Use) -) 17 gm GT DAILY [facility] Last Admin: 07/09/18 10:35 Dose: 17 gm Scopolamine HBr (Transderm-Scop -) 1 patch TD Q3D@1000 [facility] Last Admin: 07/09/18 12:29 Dose: 1 patch Topiramate (Topamax -) 300 mg GT DAILY [facility] Last Admin: 07/09/18 10:36 Dose: 300 mg Zonisamide (Zonisamide) 200 mg GT TID [facility] Last Admin: 07/09/18 13:33 Dose: 200 mg Zonisamide (Zonisamide) 50 mg GT HS [facility] Last Admin: 07/08/18 22:34 Dose: 50 mg - Objective Vital Signs: Vital Signs Temperature 98.4 F 07/09/18 14:17 Pulse Rate 82 07/09/18 14:17 Respiratory Rate 20 07/09/18 14:17 Blood Pressure 115/71 07/09/18 14:17 O2 Sat by Pulse Oximetry (%) 99 07/09/18 09:00 Constitutional: Yes: No Distress HENT: Yes: Atraumatic Cardiovascular: Yes: Regular Rate and Rhythm Respiratory: Yes: Rhonchi Gastrointestinal: Yes: Normal Bowel Sounds, Other (peg in place) Extremities: Yes: WNL Labs: CBC, BMP 07/04/18 12:12 07/04/18 12:12 INR, PTT INR 1.11 (0.83-1.09) H 06/30/18 14:41 Problem List - Problems (1) Pneumonia Assessment/Plan: iv abx frequenty suctions, chest pt id on board Code(s): J18.9 - PNEUMONIA, UNSPECIFIED ORGANISM (2) Cerebral palsy Code(s): G80.9 - CEREBRAL PALSY, UNSPECIFIED Qualifiers: 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(s): G80.0 - Spastic quadriplegic cerebral palsy (3) Functional quadriplegia Code(s): R53.2 - FUNCTIONAL QUADRIPLEGIA (4) Respiratory distress Code(s): R06.03 - ACUTE RESPIRATORY DISTRESS (5) Scoliosis Code(s): M41.9 - SCOLIOSIS, UNSPECIFIED Qualifiers: Scoliosis type: unspecified scoliosis Spinal region: thoracolumbar Qualified Code(s): M41.9 - Scoliosis, unspecified (6) Seizure Assessment/Plan: continue home meds Code(s): R56.9 - UNSPECIFIED CONVULSIONS (7) Aspiration of gastric contents Assessment/Plan: upper gi seris wnl resume TF Code(s): T17.910A - GASTRIC CONTENTS IN RESP TRACT, PART UNSP CAUSE ASPHYX, INIT Qualifiers: Encounter type: sequela Qualified Code(s): T17.910S - Gastric contents in respiratory tract, part unspecified causing asphyxiation, sequela (8) Aspiration pneumonia Assessment/Plan: feeds on hold on abx steroids Code(s): J69.0 - PNEUMONITIS DUE TO INHALATION OF FOOD AND VOMIT (9) Atelectasis of left lung Code(s): J98.11 - ATELECTASIS (10) Gastrostomy tube dependent Code(s): Z93.1 - GASTROSTOMY STATUS Assessment/Plan d/w patients father in detail regarding patients condition
[2018-07-09] MEDS ORDERED: PT OWN MED DRAWER 7, Y5N ONE (17:35)
[2018-07-10] MEDS: AZTREONAM 1 GM in DEXTROSE 5%-WATER - 50 ML IVPB SCH ×2 (01:22→10:33)
[2018-07-10] MEDS: ZONISAMIDE 100 MG/10 ML ORAL SUSPENSION GT SCH ×4 (06:30→21:57)
[2018-07-10] MEDS: carBAMazepine 200 MG/10 ML UNIT-DOSE CUP GT SCH ×3 (06:31→21:56)
[2018-07-10] MEDS: LEVALBUTEROL HCL 0.63 MG/3 ML VIAL.NEB. IH SCH ×3 (08:04→20:34)
--- NOTE | 2018-07-10 09:06 | CONSULT ---
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 recurrent bouts of ? aspiration pneumonia ? which is thought to be from the G-tube and it is believed that feeding distal to the pylorus will resolve this; he was seen by Dr. Chago Llanes and I have been asked to provide a second opinion. I have reviewed Dr. Matson consultation previously done. He had an UGI series which did not show any reflux. PMHx: CP PSHx: G-tube and ? Shahrzad fundoplication. Home Medications Medication Instructions Recorded Clobazam [Onfi -] 10 mg GT HS 11/23/17 Diazepam [Diastat] 10 mg RC ONCE PRN 11/23/17 Fluticasone Prop 0.05% Nasal 2 spray NS HS 11/23/17 [Flonase -] Lorazepam [Ativan] 1 mg GT ASDIR PRN 11/23/17 Polyethylene Glycol 3350 [Miralax 17 gm GT ASDIR 11/23/17 119 gm Btl -] Rufinamide [Banzel] 1,600 mg GT BID 11/23/17 Zonisamide [Zonegran -] 50 mg GT HS 11/23/17 Zonisamide [Zonegran] 200 mg GT TID 11/23/17 Topiramate [Topamax] 300 mg GT DAILY 02/14/18 Carbamazepine 300 mg GT DAILY 04/02/18 Ipratropium 0.02% Nebulizer 1 amp IH QID PRN 04/02/18 [Atrovent 0.02% Nebulizer -] Topiramate [Qudexy Xr] 400 mg GT HS 04/02/18 Carbamazepine 400 mg GT AM 04/03/18 Carbamazepine 400 mg GT HS 04/03/18 Silver Sulfadiazine 1% Top Cr 1 appful TP TID 04/22/18 Clobazam [Onfi -] 5 mg GT DAILY 04/23/18 EPINEPHrine (EPI-PEN 0.3MG) 0.3 mg IM ASDIR 04/23/18 [Epipen 0.3MG -] Hydrocolloid Dressing [Duoderm Cgf] 1 applic TP DAILY PRN 04/23/18 Levofloxacin [Levaquin] 500 mg PO DAILY #4 tablet 04/26/18 Sulfamethoxazole/Trimethoprim 1 tab PO BID #14 tablet 06/07/18 [Bactrim Ds -] Allergies Allergy/AdvReac Type Severity Reaction Status Date / Time albuterol Allergy Verified 06/30/18 12:44 Cephalosporins Allergy Verified 06/30/18 12:44 latex Allergy Verified 06/30/18 12:44 Penicillins Allergy Verified 06/30/18 12:44 shrimp Allergy Verified 06/30/18 12:44 wool Allergy Verified 06/30/18 12:44 PHYSICAL EXAM: GENERAL: Awake, alert, and not fully oriented, in no acute distress. HEAD: Normal with no signs of trauma. EYES: sclera anicteric, conjunctiva clear. NECK: supple without lymphadenopathy, JVD, or masses. LUNGS: Rhonchi bilaterally ABDOMEN: Soft, nontender, not distended, normoactive bowel sounds, no guarding, no rebound, no masses. No organomegaly. Healed midline scar; no hernias; GT in place LOWER EXTREMITIES: 2+ pulses, warm, well-perfused. No calf tenderness. No peripheral edema. NEUROLOGICAL: Non verbal gait not observed. SKIN: Warm, dry, normal turgor, Vital Signs Temperature 98.2 F 07/10/18 05:49 Pulse Rate 74 07/10/18 05:49 Respiratory Rate 20 07/10/18 05:49 Blood Pressure 102/45 L 07/10/18 05:49 O2 Sat by Pulse Oximetry (%) 99 07/09/18 21:00 Lab Results WBC 5.4 K/mm3 (4.0-10.0) 07/04/18 12:12 RBC 4.16 M/mm3 (4.00-5.60) 07/04/18 12:12 Hgb 14.1 GM/dL (11.7-16.9) 07/04/18 12:12 Hct 39.9 % (35.4-49) 07/04/18 12:12 MCV 95.7 fl (80-96) 07/04/18 12:12 MCHC 35.2 g/dl (32.0-35.9) 07/04/18 12:12 RDW 14.0 % (11.9-15.9) 07/04/18 12:12 Plt Count 158 K/MM3 (134-434) 07/04/18 12:12 Sodium 135 mmol/L (136-145) L 07/04/18 12:12 Potassium 3.8 mmol/L (3.5-5.1) 07/04/18 12:12 Chloride 102 mmol/L (98-107) 07/04/18 12:12 Carbon Dioxide 27 mmol/L (21-32) 07/04/18 12:12 Anion Gap 6 MMOL/L (8-16) L 07/04/18 12:12 BUN 7 mg/dL (7-18) 07/04/18 12:12 Creatinine 0.3 mg/dL (0.55-1.3) L 07/04/18 12:12 Random Glucose 78 mg/dL (74-106) 07/04/18 12:12 Calcium 8.3 mg/dL (8.5-10.1) L 07/04/18 12:12 INR 1.11 (0.83-1.09) H 06/30/18 14:41 IMP: Cp w/complications PLAN: I do not believe a surgical gastrostomy is indicated given potential risks and no radiological evidence of reflux; I concur w/ Dr. Matson assessment and plan and perhaps a GJ tube placed by IR may be indicated. Chava Kraus MD FACS
--- NOTE | 2018-07-10 10:33 | PN ---
Progress Note (short form) - Note Progress Note: PULMONARY Pt nonverbal. No fevers recorded. Vital Signs Period Temp Pulse Resp BP Sys/Grossman Pulse Ox Last 24 Hr 98 F-98.4 F 74-82 20-20 102-115/33-71 99 Gen: nonverbal Heart: RRR Lung: decreased breath sounds at the bases Abd: soft, nontender Ext: contracted CBC, BMP 07/04/18 12:12 07/04/18 12:12 Active Medications Carbamazepine (Tegretol Oral Suspension -) 300 mg GT DAILY@1400 [facility] Last Admin: 07/09/18 13:33 Dose: 300 mg Carbamazepine (Tegretol Oral Suspension -) 400 mg GT BID@0700,2200 [facility] Last Admin: 07/10/18 06:31 Dose: 400 mg Clobazam (Onfi -) 5 mg GT DAILY [facility] Last Admin: 07/09/18 10:35 Dose: 5 mg Clobazam (Onfi -) 10 mg GT HS [facility] Last Admin: 07/09/18 22:25 Dose: 10 mg Aztreonam 1 gm/ Dextrose 50 mls @ 100 mls/hr IVPB Q8H-IV [facility]; Protocol Last Admin: 07/10/18 01:22 Dose: 100 mls/hr Amino Acids (Clinimix -) 1,000 mls @ 42 mls/hr IV Q24H [facility] Last Admin: 07/09/18 16:53 Dose: 42 mls/hr Levalbuterol HCl (Xopenex) 0.31 mg IH RTID [facility] Last Admin: 07/10/18 08:04 Dose: 0.31 mg Methylprednisolone Sodium Succinate (Solu-Medrol -) 40 mg IVPUSH DAILY [facility] Last Admin: 07/09/18 10:34 Dose: 40 mg Non-Formulary Medication (Rufinamide [Banzel]) 1,600 mg GT BID [facility] Polyethylene Glycol (Miralax (For Daily Use) -) 17 gm GT DAILY [facility] Last Admin: 07/09/18 10:35 Dose: 17 gm Scopolamine HBr (Transderm-Scop -) 1 patch TD Q3D@1000 [facility] Last Admin: 07/09/18 12:29 Dose: 1 patch Topiramate (Topamax -) 300 mg GT DAILY [facility] Last Admin: 07/09/18 10:36 Dose: 300 mg Zonisamide (Zonisamide) 200 mg GT TID [facility] Last Admin: 07/10/18 06:30 Dose: 200 mg Zonisamide (Zonisamide) 50 mg GT HS [facility] Last Admin: 07/09/18 22:24 Dose: 50 mg A/P Pneumonia likely Aspiration Atelectasis Seizure Disorder Metal Retardation Cerebral Palsy - antibiotics per ID - will d/c medrol - inhaled bronchodilators as needed - O2 to keep SpO2 >90% - aspiration precautions - DVT prophylaxis
[2018-07-10] MEDS: POLYETHYLENE GLYCOL 3350 119 GM BTL GT SCH (10:35)
[2018-07-10] MEDS: cloBAZam 10 MG TABLET GT SCH ×2 (10:35→21:56)
[2018-07-10] MEDS: TOPIRAMATE 100 MG TABLET GT SCH (10:35)
[2018-07-10] MEDS: methylPREDNISolone NA SUCC 40 MG/1 ML VIAL IVPUSH SCH (10:35)
[2018-07-10] MEDS ORDERED: PT OWN MED DRAWER 7, Y5N ONE ×2 (16:45→20:35)
--- NOTE | 2018-07-10 16:47 | PN ---
Progress Note, Physician History of Present Illness: Pt seen and examined. Events noted. He is afebrile, without any respiratory distress. - Current Medication List Current Medications: Active Medications Carbamazepine (Tegretol Oral Suspension -) 300 mg GT DAILY@1400 [facility] Last Admin: 07/10/18 13:20 Dose: 300 mg Carbamazepine (Tegretol Oral Suspension -) 400 mg GT BID@0700,2200 [facility] Last Admin: 07/10/18 06:31 Dose: 400 mg Clobazam (Onfi -) 10 mg GT HS [facility] Last Admin: 07/09/18 22:25 Dose: 10 mg Aztreonam 1 gm/ Dextrose 50 mls @ 100 mls/hr IVPB Q8H-IV BRAD; Protocol Last Admin: 07/10/18 10:33 Dose: 100 mls/hr Amino Acids (Clinimix -) 1,000 mls @ 42 mls/hr IV Q24H [facility] Last Admin: 07/09/18 16:53 Dose: 42 mls/hr Levalbuterol HCl (Xopenex) 0.31 mg IH RTID [facility] Last Admin: 07/10/18 14:35 Dose: 0.31 mg Non-Formulary Medication (Rufinamide [Banzel]) 1,600 mg GT BID [facility] Polyethylene Glycol (Miralax (For Daily Use) -) 17 gm GT DAILY [facility] Last Admin: 07/10/18 10:35 Dose: 17 gm Scopolamine HBr (Transderm-Scop -) 1 patch TD Q3D@1000 [facility] Last Admin: 07/09/18 12:29 Dose: 1 patch Topiramate (Topamax -) 300 mg GT DAILY [facility] Last Admin: 07/10/18 10:35 Dose: 300 mg Zonisamide (Zonisamide) 200 mg GT TID [facility] Last Admin: 07/10/18 13:21 Dose: 200 mg Zonisamide (Zonisamide) 50 mg GT HS [facility] Last Admin: 07/09/18 22:24 Dose: 50 mg - Objective Vital Signs: Vital Signs Temperature 98.4 F 07/10/18 13:26 Pulse Rate 75 07/10/18 13:26 Respiratory Rate 20 07/10/18 13:26 Blood Pressure 97/63 07/10/18 13:26 O2 Sat by Pulse Oximetry (%) 97 07/10/18 09:00 Constitutional: Yes: No Distress Eyes: Yes: Conjunctiva Clear Cardiovascular: Yes: Regular Rate and Rhythm Respiratory: Yes: Rhonchi (scattered, good air entry) Gastrointestinal: Yes: Normal Bowel Sounds, Soft Neurological: Yes: Other (nonverbal at baseline) Labs: CBC, BMP 07/04/18 12:12 07/04/18 12:12 INR, PTT INR 1.11 (0.83-1.09) H 06/30/18 14:41 Problem List - Problems (1) Aspiration pneumonia Code(s): J69.0 - PNEUMONITIS DUE TO INHALATION OF FOOD AND VOMIT (2) Atelectasis of left lung Code(s): J98.11 - ATELECTASIS (3) Cerebral palsy Code(s): G80.9 - CEREBRAL PALSY, UNSPECIFIED Qualifiers: 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(s): G80.0 - Spastic quadriplegic cerebral palsy (4) Functional quadriplegia Code(s): R53.2 - FUNCTIONAL QUADRIPLEGIA (5) Scoliosis Code(s): M41.9 - SCOLIOSIS, UNSPECIFIED Qualifiers: Scoliosis type: unspecified scoliosis Spinal region: thoracolumbar Qualified Code(s): M41.9 - Scoliosis, unspecified (6) Seizure Code(s): R56.9 - UNSPECIFIED CONVULSIONS (7) Acute respiratory failure with hypoxia and hypercapnia Code(s): J96.01 - ACUTE RESPIRATORY FAILURE WITH HYPOXIA; J96.02 - ACUTE RESPIRATORY FAILURE WITH HYPERCAPNIA Assessment/Plan Pneumonia - possible aspiration Cerebral Palsy Functional quadriplegia Seizure d.o. -- pt without distress, afebrile -- will discontinue antibiotics -- maintain aspiration precautions continue monitor
[2018-07-10] MEDS: AMINO ACIDS 4.25%/D5W 1,000 ML IV SCH (17:12)
--- NOTE | 2018-07-10 17:12 | PN ---
Progress Note, Physician - Current Medication List Current Medications: Active Medications Carbamazepine (Tegretol Oral Suspension -) 300 mg GT DAILY@1400 [facility] Last Admin: 07/10/18 13:20 Dose: 300 mg Carbamazepine (Tegretol Oral Suspension -) 400 mg GT BID@0700,2200 [facility] Last Admin: 07/10/18 06:31 Dose: 400 mg Clobazam (Onfi -) 10 mg GT HS [facility] Last Admin: 07/09/18 22:25 Dose: 10 mg Amino Acids (Clinimix -) 1,000 mls @ 42 mls/hr IV Q24H [facility] Last Admin: 07/09/18 16:53 Dose: 42 mls/hr Levalbuterol HCl (Xopenex) 0.31 mg IH RTID [facility] Last Admin: 07/10/18 14:35 Dose: 0.31 mg Non-Formulary Medication (Rufinamide [Banzel]) 1,600 mg GT BID [facility] Polyethylene Glycol (Miralax (For Daily Use) -) 17 gm GT DAILY [facility] Last Admin: 07/10/18 10:35 Dose: 17 gm Scopolamine HBr (Transderm-Scop -) 1 patch TD Q3D@1000 [facility] Last Admin: 07/09/18 12:29 Dose: 1 patch Topiramate (Topamax -) 300 mg GT DAILY [facility] Last Admin: 07/10/18 10:35 Dose: 300 mg Zonisamide (Zonisamide) 200 mg GT TID [facility] Last Admin: 07/10/18 13:21 Dose: 200 mg Zonisamide (Zonisamide) 50 mg GT [facility] Last Admin: 07/09/18 22:24 Dose: 50 mg - Objective Vital Signs: Vital Signs Temperature 98.4 F 07/10/18 13:26 Pulse Rate 75 07/10/18 13:26 Respiratory Rate 20 07/10/18 13:26 Blood Pressure 97/63 07/10/18 13:26 O2 Sat by Pulse Oximetry (%) 97 07/10/18 09:00 Constitutional: Yes: No Distress HENT: Yes: Atraumatic Neck: Yes: Supple Cardiovascular: Yes: Regular Rate and Rhythm Respiratory: Yes: Rhonchi Gastrointestinal: Yes: Normal Bowel Sounds, Other (peg in place) Extremities: Yes: Deformity Neurological: Yes: Other (awake) Labs: CBC, BMP 07/04/18 12:12 07/04/18 12:12 INR, PTT INR 1.11 (0.83-1.09) H 06/30/18 14:41 Problem List - Problems (1) Pneumonia Assessment/Plan: iv abx frequenty suctions, chest pt id on board Code(s): J18.9 - PNEUMONIA, UNSPECIFIED ORGANISM (2) Cerebral palsy Code(s): G80.9 - CEREBRAL PALSY, UNSPECIFIED Qualifiers: 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(s): G80.0 - Spastic quadriplegic cerebral palsy (3) Functional quadriplegia Code(s): R53.2 - FUNCTIONAL QUADRIPLEGIA (4) Respiratory distress Code(s): R06.03 - ACUTE RESPIRATORY DISTRESS (5) Scoliosis Code(s): M41.9 - SCOLIOSIS, UNSPECIFIED Qualifiers: Scoliosis type: unspecified scoliosis Spinal region: thoracolumbar Qualified Code(s): M41.9 - Scoliosis, unspecified (6) Seizure Assessment/Plan: continue home meds Code(s): R56.9 - UNSPECIFIED CONVULSIONS (7) Aspiration of gastric contents Assessment/Plan: upper gi seris wnl Code(s): T17.910A - GASTRIC CONTENTS IN RESP TRACT, PART UNSP CAUSE ASPHYX, INIT Qualifiers: Encounter type: sequela Qualified Code(s): T17.910S - Gastric contents in respiratory tract, part unspecified causing asphyxiation, sequela (8) Aspiration pneumonia Assessment/Plan: will start tube feeds on abx Code(s): J69.0 - PNEUMONITIS DUE TO INHALATION OF FOOD AND VOMIT (9) Atelectasis of left lung Code(s): J98.11 - ATELECTASIS (10) Gastrostomy tube dependent Code(s): Z93.1 - GASTROSTOMY STATUS Assessment/Plan d/w patients father in detail regarding patients condition will start tube feeds today
[2018-07-11] MEDS ORDERED: PT OWN MED DRAWER 7, Y5N ONE ×2 (05:59→22:03)
[2018-07-11] MEDS: ZONISAMIDE 100 MG/10 ML ORAL SUSPENSION GT SCH ×4 (06:12→22:06)
[2018-07-11] MEDS: carBAMazepine 200 MG/10 ML UNIT-DOSE CUP GT SCH ×3 (06:13→22:06)
[2018-07-11] MEDS: LEVALBUTEROL HCL 0.63 MG/3 ML VIAL.NEB. IH SCH ×3 (07:40→20:09)
[2018-07-11] MEDS: TOPIRAMATE 100 MG TABLET GT SCH (10:24)
[2018-07-11] MEDS: POLYETHYLENE GLYCOL 3350 119 GM BTL GT SCH (10:24)
--- NOTE | 2018-07-11 12:33 | PN ---
Progress Note (short form) - Note Progress Note: PULMONARY Pt nonverbal. No fevers recorded. VSS/AFEBRILE Gen: nonverbal Heart: RRR Lung: decreased breath sounds at the bases Abd: soft, nontender Ext: contracted Chart reviewed A/P Pneumonia likely Aspiration Atelectasis Seizure Disorder Metal Retardation Cerebral Palsy - antibiotics per ID - medrol discontinued - inhaled bronchodilators as needed - O2 to keep SpO2 >90% - aspiration precautions - DVT prophylaxis Spencer BENSON MD
--- NOTE | 2018-07-11 14:20 | PN ---
Progress Note, Physician History of Present Illness: stable now tolerating feeds awake and alert - Current Medication List Current Medications: Active Medications Carbamazepine (Tegretol Oral Suspension -) 300 mg GT DAILY@1400 [facility] Last Admin: 07/11/18 13:06 Dose: 300 mg Carbamazepine (Tegretol Oral Suspension -) 400 mg GT BID@0700,2200 [facility] Last Admin: 07/11/18 06:13 Dose: 400 mg Clobazam (Onfi -) 10 mg GT HS [facility] Last Admin: 07/10/18 21:56 Dose: 10 mg Amino Acids (Clinimix -) 1,000 mls @ 42 mls/hr IV Q24H [facility] Last Admin: 07/10/18 17:12 Dose: Not Given Levalbuterol HCl (Xopenex) 0.31 mg IH RTID [facility] Last Admin: 07/11/18 07:40 Dose: 0.31 mg Non-Formulary Medication (Rufinamide [Banzel]) 1,600 mg GT BID [facility] Polyethylene Glycol (Miralax (For Daily Use) -) 17 gm GT DAILY [facility] Last Admin: 07/11/18 10:24 Dose: 17 gm Scopolamine HBr (Transderm-Scop -) 1 patch TD Q3D@1000 [facility] Last Admin: 07/09/18 12:29 Dose: 1 patch Topiramate (Topamax -) 300 mg GT DAILY [facility] Last Admin: 07/11/18 10:24 Dose: 300 mg Zonisamide (Zonisamide) 200 mg GT TID [facility] Last Admin: 07/11/18 13:06 Dose: 200 mg Zonisamide (Zonisamide) 50 mg GT HS [facility] Last Admin: 07/10/18 21:57 Dose: 50 mg - Objective Vital Signs: Vital Signs Temperature 98.1 F 07/11/18 13:52 Pulse Rate 84 07/11/18 13:52 Respiratory Rate 20 07/11/18 13:52 Blood Pressure 96/58 L 07/11/18 13:52 O2 Sat by Pulse Oximetry (%) 98 07/11/18 09:00 Constitutional: Yes: No Distress, Calm Cardiovascular: Yes: Regular Rate and Rhythm Respiratory: Yes: Regular, CTA Bilaterally Gastrointestinal: Yes: Normal Bowel Sounds, Soft, Other (peg tube feeding) Musculoskeletal: Yes: WNL Extremities: Yes: WNL Neurological: Yes: Alert, Oriented Psychiatric: Yes: Alert, Oriented Labs: CBC, BMP 07/04/18 12:12 07/04/18 12:12 INR, PTT INR 1.11 (0.83-1.09) H 06/30/18 14:41 Assessment/Plan Problem List - Problems (1) Pneumonia Code(s): J18.9 - PNEUMONIA, UNSPECIFIED ORGANISM (2) Cerebral palsy Code(s): G80.9 - CEREBRAL PALSY, UNSPECIFIED (3) Functional quadriplegia Code(s): R53.2 - FUNCTIONAL QUADRIPLEGIA (4) Respiratory distress Code(s): R06.03 - ACUTE RESPIRATORY DISTRESS (5) Scoliosis Code(s): M41.9 - SCOLIOSIS, UNSPECIFIED (6) Seizure Code(s): R56.9 - UNSPECIFIED CONVULSIONS plan stable off of abx tolerating feeds rest as per the team monitor closely
--- NOTE | 2018-07-11 16:17 | PN ---
Progress Note, Physician History of Present Illness: tolerating feeds to goal today - Current Medication List Current Medications: Active Medications Carbamazepine (Tegretol Oral Suspension -) 300 mg GT DAILY@1400 [facility] Last Admin: 07/11/18 13:06 Dose: 300 mg Carbamazepine (Tegretol Oral Suspension -) 400 mg GT BID@0700,2200 [facility] Last Admin: 07/11/18 06:13 Dose: 400 mg Clobazam (Onfi -) 10 mg GT HS [facility] Last Admin: 07/10/18 21:56 Dose: 10 mg Amino Acids (Clinimix -) 1,000 mls @ 42 mls/hr IV Q24H [facility] Last Admin: 07/10/18 17:12 Dose: Not Given Levalbuterol HCl (Xopenex) 0.31 mg IH RTID [facility] Last Admin: 07/11/18 07:40 Dose: 0.31 mg Non-Formulary Medication (Rufinamide [Banzel]) 1,600 mg GT BID [facility] Polyethylene Glycol (Miralax (For Daily Use) -) 17 gm GT DAILY [facility] Last Admin: 07/11/18 10:24 Dose: 17 gm Scopolamine HBr (Transderm-Scop -) 1 patch TD Q3D@1000 [facility] Last Admin: 07/09/18 12:29 Dose: 1 patch Topiramate (Topamax -) 300 mg GT DAILY [facility] Last Admin: 07/11/18 10:24 Dose: 300 mg Zonisamide (Zonisamide) 200 mg GT TID [facility] Last Admin: 07/11/18 13:06 Dose: 200 mg Zonisamide (Zonisamide) 50 mg GT [facility] Last Admin: 07/10/18 21:57 Dose: 50 mg - Objective Vital Signs: Vital Signs Temperature 98.1 F 07/11/18 13:52 Pulse Rate 84 07/11/18 13:52 Respiratory Rate 20 07/11/18 13:52 Blood Pressure 96/58 L 07/11/18 13:52 O2 Sat by Pulse Oximetry (%) 98 07/11/18 09:00 Constitutional: Yes: No Distress HENT: Yes: Atraumatic Neck: Yes: Supple Cardiovascular: Yes: Regular Rate and Rhythm Respiratory: Yes: Rhonchi Gastrointestinal: Yes: Normal Bowel Sounds, Other (peg in place) Neurological: Yes: Other (awake) Labs: CBC, BMP 07/04/18 12:12 07/04/18 12:12 INR, PTT INR 1.11 (0.83-1.09) H 06/30/18 14:41 Problem List - Problems (1) Pneumonia Code(s): J18.9 - PNEUMONIA, UNSPECIFIED ORGANISM (2) Cerebral palsy Code(s): G80.9 - CEREBRAL PALSY, UNSPECIFIED Qualifiers: 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(s): G80.0 - Spastic quadriplegic cerebral palsy (3) Functional quadriplegia Code(s): R53.2 - FUNCTIONAL QUADRIPLEGIA (4) Respiratory distress Code(s): R06.03 - ACUTE RESPIRATORY DISTRESS (5) Scoliosis Code(s): M41.9 - SCOLIOSIS, UNSPECIFIED Qualifiers: Scoliosis type: unspecified scoliosis Spinal region: thoracolumbar Qualified Code(s): M41.9 - Scoliosis, unspecified (6) Seizure Code(s): R56.9 - UNSPECIFIED CONVULSIONS (7) Aspiration of gastric contents Code(s): T17.910A - GASTRIC CONTENTS IN RESP TRACT, PART UNSP CAUSE ASPHYX, INIT Qualifiers: Encounter type: sequela Qualified Code(s): T17.910S - Gastric contents in respiratory tract, part unspecified causing asphyxiation, sequela (8) Aspiration pneumonia Code(s): J69.0 - PNEUMONITIS DUE TO INHALATION OF FOOD AND VOMIT (9) Atelectasis of left lung Code(s): J98.11 - ATELECTASIS (10) Gastrostomy tube dependent Code(s): Z93.1 - GASTROSTOMY STATUS Assessment/Plan dc to [facility] in [place] d/w dr kanwal palmer who is workforce consultant
[2018-07-11] MEDS: AMINO ACIDS 4.25%/D5W 1,000 ML IV SCH (16:54)
--- NOTE | 2018-07-11 17:46 | DS ---
Physical Examination Vital Signs: Vital Signs Temperature 97.4 F L 07/11/18 17:29 Pulse Rate 89 07/11/18 17:29 Respiratory Rate 20 07/11/18 17:29 Blood Pressure 127/70 07/11/18 17:29 O2 Sat by Pulse Oximetry (%) 98 07/11/18 09:00 Labs: CBC, BMP 07/04/18 12:12 07/04/18 12:12 Discharge Summary Reason For Visit: ASPIRATION PNEUMONIA Current Active Problems Aspiration of gastric contents (Acute) Aspiration pneumonia (Acute) Atelectasis of left lung (Acute) Gastrostomy tube dependent (Acute) Pneumonia (Acute) S/P Shahrzad fundoplication (with gastrostomy tube placement) (Acute) Condition: Stable - Instructions Diet, Activity, Other Instructions: CHEST PT [id number] ORAL SUCTION Q4H - Home Medications Comprehensive Discharge Medication List: Ambulatory Orders Clobazam [Onfi -] 10 mg GT HS 11/23/17 Diazepam [Diastat] 10 mg RC ONCE PRN 11/23/17 Fluticasone Prop 0.05% Nasal [Flonase -] 2 spray NS HS 11/23/17 Lorazepam [Ativan] 1 mg GT ASDIR PRN 11/23/17 Polyethylene Glycol 3350 [Miralax 119 gm Btl -] 17 gm GT ASDIR 11/23/17 Rufinamide [Banzel] 1,600 mg GT BID 11/23/17 Zonisamide [Zonegran -] 50 mg GT HS 11/23/17 Zonisamide [Zonegran] 200 mg GT TID 11/23/17 Topiramate [Topamax] 300 mg GT DAILY 02/14/18 Carbamazepine 300 mg GT DAILY 04/02/18 Ipratropium 0.02% Nebulizer [Atrovent 0.02% Nebulizer -] 1 amp IH QID PRN Topiramate [Qudexy Xr] 400 mg GT HS 04/02/18 Carbamazepine 400 mg GT AM 04/03/18 Carbamazepine 400 mg GT HS 04/03/18 Silver Sulfadiazine 1% Top Cr 1 appful TP TID 04/22/18 Clobazam [Onfi -] 5 mg GT DAILY 04/23/18 EPINEPHrine (EPI-PEN 0.3MG) [Epipen 0.3MG -] 0.3 mg IM ASDIR 10/31/18 Hydrocolloid Dressing [Duoderm Cgf] 1 applic TP DAILY PRN 04/23/18 Levofloxacin [Levaquin] 500 mg PO DAILY #4 tablet 04/26/18 Sulfamethoxazole/Trimethoprim [Bactrim Ds -] 1 tab PO BID #14 tablet 06/07/18 SCOPOLAMINE PATCH SEE [facility] DR DOMINGUEZ...[phone]...LEFT MSG AND CALL BACK NO. 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 HE ACCEPTED THE PATIENT RN HAS TO CALL [facility] IN AM CHECK PRE AND POST TO CHECK IF HE NEEDS OXYGEN
[2018-07-11] MEDS: cloBAZam 10 MG TABLET GT SCH (22:05)
[2018-07-12] MEDS: carBAMazepine 200 MG/10 ML UNIT-DOSE CUP GT SCH ×2 (06:03→13:16)
[2018-07-12] MEDS: ZONISAMIDE 100 MG/10 ML ORAL SUSPENSION GT SCH ×2 (06:03→13:16)
[2018-07-12] MEDS: LEVALBUTEROL HCL 0.63 MG/3 ML VIAL.NEB. IH SCH ×2 (08:27→14:32)
[2018-07-12] MEDS: POLYETHYLENE GLYCOL 3350 119 GM BTL GT SCH (09:49)
[2018-07-12] MEDS: TOPIRAMATE 100 MG TABLET GT SCH (09:49)
[2018-07-12] MEDS: SCOPOLAMINE HYDROBROMIDE 1 PATCH PATCH.TD72 TD SCH (09:50)
--- NOTE | 2018-07-12 12:29 | PN ---
Progress Note (short form) - Note Progress Note: PULMONARY Pt nonverbal. No fevers recorded. Vital Signs Period Temp Pulse Resp BP Sys/Grossman Pulse Ox Last 24 Hr 97.4 F-98.2 F 63-89 18-20 96-127/58-70 94-99 Gen: nonverbal Heart: RRR Lung: decreased breath sounds at the bases Abd: soft, nontender Ext: contracted CBC, BMP 07/04/18 12:12 07/04/18 12:12 Active Medications Carbamazepine (Tegretol Oral Suspension -) 300 mg GT DAILY@1400 [facility] Last Admin: 07/11/18 13:06 Dose: 300 mg Carbamazepine (Tegretol Oral Suspension -) 400 mg GT BID@0700,2200 [facility] Last Admin: 07/12/18 06:03 Dose: 400 mg Clobazam (Onfi -) 10 mg GT HS [facility] Last Admin: 07/11/18 22:05 Dose: 10 mg Levalbuterol HCl (Xopenex) 0.31 mg IH RTID [facility] Last Admin: 07/12/18 08:27 Dose: 0.31 mg Non-Formulary Medication (Rufinamide [Banzel]) 1,600 mg GT BID [facility] Polyethylene Glycol (Miralax (For Daily Use) -) 17 gm GT DAILY [facility] Last Admin: 07/12/18 09:49 Dose: 17 gm Scopolamine HBr (Transderm-Scop -) 1 patch TD Q3D@1000 [facility] Last Admin: 07/12/18 09:50 Dose: 1 patch Topiramate (Topamax -) 300 mg GT DAILY [facility] Last Admin: 07/12/18 09:49 Dose: 300 mg Zonisamide (Zonisamide) 200 mg GT TID [facility] Last Admin: 07/12/18 06:03 Dose: 200 mg Zonisamide (Zonisamide) 50 mg GT HS [facility] Last Admin: 07/11/18 22:05 Dose: 50 mg A/P Pneumonia likely Aspiration Atelectasis Seizure Disorder Metal Retardation Cerebral Palsy - completed antibiotics - off medrol - inhaled bronchodilators as needed - O2 to keep SpO2 >90% - aspiration precautions - DVT prophylaxis
[2018-07-12 14:52] VITALS: BP 114/66; PULSE 78; TEMP 97.4
--- NOTE | 2018-07-14 16:57 | DS ---
Physical Examination Vital Signs: Vital Signs Temperature 97.4 F L 07/12/18 14:49 Pulse Rate 78 07/12/18 14:49 Respiratory Rate 20 07/12/18 14:49 Blood Pressure 114/66 07/12/18 14:49 O2 Sat by Pulse Oximetry (%) 98 07/12/18 09:00 Labs: CBC, BMP 07/04/18 12:12 07/04/18 12:12 Discharge Summary Reason For Visit: ASPIRATION PNEUMONIA Condition: Stable - Instructions Diet, Activity, Other Instructions: CHEST PT [id number] ORAL SUCTION Q4H Disposition: [facility] - Home Medications Comprehensive Discharge Medication List: Ambulatory Orders Clobazam [Onfi -] 10 mg GT HS 11/23/17 Diazepam [Diastat] 10 mg RC ONCE PRN 11/23/17 Fluticasone Prop 0.05% Nasal [Flonase -] 2 spray NS HS 11/23/17 Lorazepam [Ativan] 1 mg GT ASDIR PRN 11/23/17 Polyethylene Glycol 3350 [Miralax 119 gm Btl -] 17 gm GT ASDIR 11/23/17 Rufinamide [Banzel] 1,600 mg GT BID 11/23/17 Zonisamide [Zonegran -] 50 mg GT HS 11/23/17 Zonisamide [Zonegran] 200 mg GT TID 11/23/17 Topiramate [Topamax] 300 mg GT DAILY 02/14/18 Carbamazepine 300 mg GT DAILY 04/02/18 Ipratropium 0.02% Nebulizer [Atrovent 0.02% Nebulizer -] 1 amp IH QID PRN Topiramate [Qudexy Xr] 400 mg GT HS 04/02/18 Carbamazepine 400 mg GT AM 04/03/18 Carbamazepine 400 mg GT HS 04/03/18 Silver Sulfadiazine 1% Top Cr 1 appful TP TID 04/22/18 Clobazam [Onfi -] 5 mg GT DAILY 04/23/18 EPINEPHrine (EPI-PEN 0.3MG) [Epipen 0.3MG -] 0.3 mg IM ASDIR 04/23/18 Hydrocolloid Dressing [Duoderm Cgf] 1 applic TP DAILY PRN 04/23/18 Levofloxacin [Levaquin] 500 mg PO DAILY #4 tablet 04/26/18 Sulfamethoxazole/Trimethoprim [Bactrim Ds -] 1 tab PO BID #14 tablet 06/07/18 Scopolamine Hydrobromide [Transderm-Scop -] 1 patch TD Q3D@1000 patch.td72 dc
== END 2018-07-12 14:55 | disposition home or self-care (01) | DRG 177 ==
LOC: JER 12:35 → JERBED 15:54 → J7W 07-01 00:54
PROVIDERS: ADMIT Internal Medicine; ATTEND Internal Medicine
PROC: 0D20XUZ Change Feeding Device in Upper Intestinal Tract, External Approach (ICD-10-PCS; principal; 2018-07-03)
DX: J69.0 Pneumonitis due to inhalation of food and vomit (principal); R53.2 Functional quadriplegia; J98.11 Atelectasis; F73 Profound intellectual disabilities; E87.1 Hypo-osmolality and hyponatremia; G40.909 Epilepsy, unspecified, not intractable, without status epilepticus; M41.9 Scoliosis, unspecified; Z93.1 Gastrostomy status; G80.9 Cerebral palsy, unspecified; R06.03 Acute respiratory distress
CPT/HCPCS: 36415; 49465; 71045-TC-FY; 74018-TC-FY; 74240-TC-FY; 76000-TC-FY; 80053; 81003; 81015; 82803; 83605; 83735; 84484; 85025; 85610; 85730; 87040; 87086; 87804; 87807; 93005; 93010; 94761; 99282-25; J0131; J7030

== ENCOUNTER 2018-10-06 20:30 | Inpatient (IN) | payer OTHER ==
--- NOTE | 2018-10-06 20:43 | PDOC ---
History of Present Illness - General Chief Complaint: Respiratory Stated Complaint: fever Time Seen by Provider: 10/06/18 20:42 History Source: Patient, Old Records Exam Limitations: Clinical Condition - History of Present Illness Initial Comments: History is linited bc patient is not verbal. Mr. Patterson is a 28 yo male w/ pmh of cerebral palsy, seizures, epilepsy, recurrent aspiration pneumonia, scoliosis, PEG tube BIBEMS from [facility] who presents for evaluation of a fever of 100.2 at the [facility]. The aid at bedside states he was completely fine earlier today and does not believe the patient needs to be in the hospital. As per EMS - the [facility] reported no complaints other than a mild fever. Rectal Temp at bedside: 101.8 PCP: Marlen Amaya PSH: G tube placement, scoliosis repair Allergies: Albuterol, Seafood, wool, latex, cephalosporin, penicillin, shrimp. Social: longterm resident. Patient does not smoke, drink alcohol, or use illicit drugs. Past History - Past Medical History Allergies/Adverse Reactions: Allergies Allergy/AdvReac Type Severity Reaction Status Date / Time albuterol Allergy Verified 06/30/18 12:44 Cephalosporins Allergy Verified 06/30/18 12:44 latex Allergy Verified 06/30/18 12:44 Penicillins Allergy Verified 06/30/18 12:44 shrimp Allergy Verified 06/30/18 12:44 wool Allergy Verified 06/30/18 12:44 Home Medications: Ambulatory Orders Clobazam [Onfi -] 10 mg GT HS 11/23/17 Diazepam [Diastat] 10 mg RC ONCE PRN 11/23/17 Fluticasone Prop 0.05% Nasal [Flonase -] 2 spray NS HS 11/23/17 Lorazepam [Ativan] 1 mg GT ASDIR PRN 11/23/17 Polyethylene Glycol 3350 [Miralax 119 gm Btl -] 17 gm GT ASDIR 11/23/17 Rufinamide [Banzel] 1,600 mg GT BID 11/23/17 Zonisamide [Zonegran -] 50 mg GT HS 11/23/17 Zonisamide [Zonegran] 200 mg GT TID 11/23/17 Topiramate [Topamax] 300 mg GT DAILY 02/14/18 Carbamazepine 300 mg GT DAILY 04/02/18 Ipratropium 0.02% Nebulizer [Atrovent 0.02% Nebulizer -] 1 amp IH QID PRN Topiramate [Qudexy Xr] 400 mg GT HS 04/02/18 Carbamazepine 400 mg GT AM 04/03/18 Carbamazepine 400 mg GT HS 04/03/18 Silver Sulfadiazine 1% Top Cr 1 appful TP TID 04/22/18 Clobazam [Onfi -] 5 mg GT DAILY 04/23/18 EPINEPHrine (EPI-PEN 0.3MG) [Epipen 0.3MG -] 0.3 mg IM ASDIR 04/23/18 Hydrocolloid Dressing [Duoderm Cgf] 1 applic TP DAILY PRN 04/23/18 Levofloxacin [Levaquin] 500 mg PO DAILY #4 tablet 04/26/18 Sulfamethoxazole/Trimethoprim [Bactrim Ds -] 1 tab PO BID #14 tablet 06/07/18 Scopolamine Hydrobromide [Transderm-Scop -] 1 patch TD Q3D@1000 patch.td72 Anemia: No Asthma: No Cancer: No Cardiac Disorders: No CVA: No COPD: No CHF: No Dementia: No Diabetes: No GI Disorders: Yes (gtube) Disorders: No HTN: No Hypercholesterolemia: No Liver Disease: No Seizures: Yes (epilepsy, cp,) Thyroid Disease: No - Surgical History Abdominal Surgery: Yes (gtube feeding) Appendectomy: No Cardiac Surgery: No Cholecystectomy: No Lung Surgery: No Neurologic Surgery: No Orthopedic Surgery: (scoliosis repair) - Immunization History Immunization Up to Date: Yes - Suicide/Smoking/Psychosocial Hx Smoking History: Never smoked Have you smoked in the past 12 months: No Hx Alcohol Use: No Drug/Substance Use Hx: No Substance Use Type: None Hx Substance Use Treatment: No Review of Systems - Review of Systems Able to Perform ROS?: No (non-verbal) *Physical Exam - Physical Exam General Appearance: Yes: Appropriately Dressed. No: Apparent Distress HEENT: positive: [place] Neck: positive: Supple Respiratory/Chest: positive: Rapid RR. negative: Accessory Muscle Use Cardiovascular: positive: Regular Rhythm, S1, S2, Tachycardia Vascular Pulses: Dorsalis-Pedis (R): 2+, Doralis-Pedis (L): 2+ Gastrointestinal/Abdominal: positive: Normal Bowel Sounds, Increased Bowel Sounds, Other (G-tube) Male Genitalia: positive: normal genitalia. negative: discharge, inguinal hernia Rectal Exam: positive: normal exam, normal rectal tone Lymphatic: negative: Adenopathy Musculoskeletal: positive: Decreased Range of Motion, Other (contracted) Extremity: positive: Normal Capillary Refill. negative: Normal Inspection, Normal Range of Motion, Delayed Capillary Refill, Erythema, Inflammation Integumentary: positive: Normal Color, Dry, Warm Neurologic: positive: Respond to painful stimul. negative: Fully Oriented, Responsive Procedures - Bedside Ultrasound Other: US guided IV placement Remarks: IV access was difficult to obtain so I placed a long 20 gauge IV in the patient' s right brachial vein. ED Treatment Course - LABORATORY CBC & Chemistry Diagram: 10/06/18 21:30 10/06/18 21:30 Medical Decision Making - Medical Decision Making History is linited bc patient is not verbal. Mr. Patterson is a 28 yo male w/ pmh of cerebral palsy, seizures, epilepsy, recurrent aspiration pneumonia, scoliosis, PEG tube BIBEMS from [facility] who presents for evaluation of a fever of 100.2 at the [facility]. The aid at bedside states he was completely fine earlier today and does not believe the patient needs to be in the hospital. As per EMS - the [facility] reported no complaints other than a mild fever. VS: Tachycardic, tachypneic, Rectal Temp at bedside: 101.8 DDx IBNLT: Infection, sepsis, URI, influenza, PNA, gastroenteritis, UTI, meningitis Plan: ED sepsis workup, labs, urine, cxr, ekg, flu swab, IV hydration, Abx, re- assess. - US access very difficult to place secondary to contracted nature of patient. - US used to obtain IV access by myself. 20 gauge placed in right brachial. VBG shows patient is retaining - will get an ABG ABG still shows patient is acidotic. - Will presume the primary process here is an aspiration PNA given patient's history and treat empirically before admitting patient. - Last time patient was here he was seen by Katelyn and prescribed vanc and aztreonam - will consult Dr. Zepeda and do the same. Admitting patient to hospital for further care *DC/Admit/Observation/Transfer Diagnosis at time of Disposition: Fever - Discharge Dispostion Condition at time of disposition: Fair Decision to Admit order: Yes - Referrals - Patient Instructions - Post Discharge Activity
[2018-10-06] MEDS ORDERED: SODIUM CHLORIDE IV ONE (20:58)
[2018-10-06 21:51] LABS: VENOUS PC02 62.6 mmHg (41-51); VENOUS PH 7.28 (7.31-7.41)
[2018-10-06 21:52] LABS: VENOUS PO2 26.4 mmHg (30-40)
[2018-10-06 21:55] LABS: BASO % 0.3 % (0-2.0); HEMOGLOBIN 14.5 GM/dL (11.7-16.9); LYMPH % 11.9 % (8-40); MCH 34.1 pg (25.7-33.7); MCHC 34.6 g/dl (32.0-35.9); MEAN CELL VOLUME 98.5 fl (80-96); MEAN PLT VOLUME 7.3 fl (7.5-11.1); MONO % 6.1 % (3.8-10.2); NEUT % 81.7 % (42.8-82.8); PLATELET COUNT 172 K/MM3 (134-434); RBC 4.27 M/mm3 (4.00-5.60); RDW 13.1 % (11.9-15.9); WHITE BLOOD COUNT 10.3 K/mm3 (4.0-10.0)
[2018-10-06 22:04] LABS: EPI CELLS 0.5 /HPF (0-5/HPF); PH,URINE 5.5 (5.0-8.0); URINE APPEARANCE CLOUDY; URINE BACTERIA 0.3 /hpf (NEGATIVE); URINE BILIRUBIN NEGATIVE (NEGATIVE); URINE CASTS 7 /lpf (0-8); URINE COLOR DK YELLOW; URINE GLUCOSE (UA) NEGATIVE (NEGATIVE); URINE KETONE TRACE (NEGATIVE); URINE LEUK ESTERASE TRACE (NEGATIVE); URINE NITRITE NEGATIVE (NEGATIVE); URINE PROTEIN TRACE (NEGATIVE); URINE UROBILINOGEN 0.2 mg/dL (0.2-1.0); URINE WBC 1 /hpf (0-5)
[2018-10-06 22:09] LABS: ALBUMIN 3.6 g/dl (3.4-5.0); ALK PHOS 115 U/L (45-117); ANION GAP 6 MMOL/L (8-16); BILIRUBIN,TOTAL 0.2 mg/dL (0.2-1); BLOOD UREA NITROGEN 10 mg/dL (7-18); CALCIUM 8.5 mg/dL (8.5-10.1); CHLORIDE 101 mmol/L (98-107); CO2 30 mmol/L (21-32); CREATININE 0.6 mg/dL (0.55-1.3); GLUCOSE,RANDOM 79 mg/dL (74-106); SGOT/AST 63 U/L (15-37); SGPT/ALT 69 U/L (13-61); SODIUM 138 mmol/L (136-145); TOT PROT 7.8 g/dl (6.4-8.2)
[2018-10-06 22:14] LABS: INR 1.3 (0.83-1.09); PROTHROMBIN TIME (PATIENT) 15.4 SEC (9.7-13.0)
[2018-10-06 22:17] LABS: ACTIVATED PTT 39.5 SECONDS (25.2-36.5)
[2018-10-06 22:27] LABS: URINE RBC 99.1 /hpf (0-4); YEAST NONE SEEN (NEGATIVE)
[2018-10-06 22:53] LABS: ARTERIAL BLD GAS O2 SATURATION 96.4 % (95-98); ARTERIAL BLOOD GAS PCO2 45.6 mmHg (35-45); ARTERIAL BLOOD GAS PO2 87.8 mmHg (80-105); ARTERIAL BLOOD GAS pH 7.33 (7.35-7.45)
[2018-10-06 22:55] LABS: ALLENS TEST POSITIVE
[2018-10-06] MEDS ORDERED: VANCOMYCIN 1,000 MG in DEXTROSE 5%-WATER - 250 ML IVPB ONE (23:02)
[2018-10-06] MEDS ORDERED: AZTREONAM 1 GM in DEXTROSE 5%-WATER - 50 ML IVPB ONE (23:03)
[2018-10-06] MEDS ORDERED: ACETAMINOPHEN 1000 MG/100 ML VIAL (NON FORMULARY) IVPB ONE (23:10)
--- NOTE | 2018-10-06 23:34 | PDOC ---
Documentation entered by Chris Perkins SCRIBE, acting as scribe for Reagan Gaona MD. Attending Attestation - Resident Resident Name: FrankJackson - ED Attending Attestation I have performed the following: I have examined & evaluated the patient, The case was reviewed & discussed with the resident, I agree w/resident's findings & plan, Exceptions are as noted - HPI HPI: 10/06/18 22:23 Patient is a 28 year old male from [facility] with a significant past medical history of cerebral palsy, seizures, epilepsy, recurrent aspiration pneumonia, scoliosis, PEG tube BIBEMS for fever that began earlier today. As per EMS they report being only told patient was experiencing fever but were not told any additional details. History limited due to pt's clinical condition. - Physicial Exam PE: 10/06/18 23:25 agree with resident exam - Medical Decision Making 10/06/18 23:26 28yo M presents to the ED with fever. Vitals with tachypnea and fever. Exam with diminished BS on the left. Labs with leukocytosis to 10, and mild resp acidosis noted on VBG. ABG with mildly low PH, but normal CO2. Also normal O2 UA neg, flu neg CXR difficult to interpret 2/2 rotation but clinically will treat pt for respiratory infection Pt admitted for further mgmt at this time Case discussed in detail with admitting physician including history, physical exam and ancillary studies. Admitting physician has assumed care for the patient, will follow all pending diagnostics and will complete the evaluation and treatment. Heart Score/ECG Review #1 10/06/18 23:33 Twelve-lead EKG was performed and reviewed by me. Normal sinus, rate 86. Right axis deviation. No ST elevations or T-wave inversions. Reagan Gaona MD: This documentation has been prepared by the Gregorio rich Matthew, SCRIBE, under my direction and personally reviewed by me in its entirety. I confirm that the documentation accurately reflects all work, treatment, procedures, and medical decision making performed by me.
[2018-10-06] MEDS ORDERED: diazePAM 2.5 MG PEDIATRIC RECTAL APP GEL RC PRN (23:51)
[2018-10-06] MEDS ORDERED: LORazepam 1 MG TABLET GT PRN (23:51)
[2018-10-07] MEDS ORDERED: ACETAMINOPHEN INJECTION 100 ML IVPB ONE (00:07)
[2018-10-07] MEDS ORDERED: VANCOMYCIN 1 GRAM (PRE-DOCKED) 1,000 MG/250 ML BAG IVPB ONE (00:08)
--- NOTE | 2018-10-07 00:09 | HP ---
CHIEF COMPLAINT: fever PCP: Marlen Amaya HISTORY OF PRESENT ILLNESS: Patient is a 28 y/o M from [facility] w/ PMHx CP, epilepsy, recurrent aspiration PNA, recurrent UTI, scoliosis s/p spinal Sx/hardware, s/p PEG placement, BIBEMS for reported fever at [facility]. Additionally has reportedly had diarrhea for several days, no direct observers can attest to this. Aide present at bedside did not observe events in question; did observe "5 second" tonic-clonic episode just prior to encounter, otherwise cannot provide history. Patient is non-verbal and cannot provide history. Febrile to 101.8, tachycardic to 108, tachypneic to 22, normotensive on presentation. No leukocytosis. BMP wnl. Mild transaminitis noted (63/69) similar to prior episode in October 2017 but elevated above baseline. ABG w/ pH 7.33 and CO2 45.6. UA w/ significant blood and RBC, no pyuria. Pt is allergic to penicillins and cephalosporins. Prior sputum Cx grew MSSA and Pseudonomnas, prior UCx grew Enterococcus and Klebsiella. Given Vancomycin, Aztreonam, and fluid bolus in ED. ER course was notable for: (1) Febrile to 101.8, tachycardic to 108, tachypneic to 22, normotensive (2) CXR obscured by profound scoliosis, awaiting official read (3) Mild hypercapnea, saturating 95 on RA by bedside pulse ox Recent Travel: None PAST MEDICAL HISTORY: As per HPI PAST SURGICAL HISTORY: As per HPI Social History: Smoking: No Alcohol: No Drugs: No Family History: Allergies albuterol Allergy (Verified 06/30/18 12:44) Cephalosporins Allergy (Verified 06/30/18 12:44) latex Allergy (Verified 06/30/18 12:44) Penicillins Allergy (Verified 06/30/18 12:44) shrimp Allergy (Verified 06/30/18 12:44) wool Allergy (Verified 06/30/18 12:44) HOME MEDICATIONS: Home Medications Medication Instructions Recorded Clobazam [Onfi -] 10 mg GT 11/23/17 Diazepam [Diastat] 10 mg RC ONCE PRN 11/23/17 Fluticasone Prop 0.05% Nasal 2 spray NS HS 11/23/17 [Flonase -] Lorazepam [Ativan] 1 mg GT ASDIR PRN 11/23/17 Polyethylene Glycol 3350 [Miralax 17 gm GT ASDIR 11/23/17 119 gm Btl -] Rufinamide [Banzel] 1,600 mg GT BID 11/23/17 Zonisamide [Zonegran -] 50 mg GT HS 11/23/17 Zonisamide [Zonegran] 200 mg GT TID 11/23/17 Topiramate [Topamax] 300 mg GT DAILY 02/14/18 Carbamazepine 300 mg GT DAILY 04/02/18 Ipratropium 0.02% Nebulizer 1 amp IH QID PRN 04/02/18 [Atrovent 0.02% Nebulizer -] Topiramate [Qudexy Xr] 400 mg GT HS 04/02/18 Carbamazepine 400 mg GT AM 04/03/18 Carbamazepine 400 mg GT HS 04/03/18 Silver Sulfadiazine 1% Top Cr 1 appful TP TID 04/22/18 Clobazam [Onfi -] 5 mg GT DAILY 04/23/18 EPINEPHrine (EPI-PEN 0.3MG) 0.3 mg IM ASDIR 04/23/18 [Epipen 0.3MG -] Hydrocolloid Dressing [Duoderm Cgf] 1 applic TP DAILY PRN 04/23/18 Levofloxacin [Levaquin] 500 mg PO DAILY #4 tablet 04/26/18 Sulfamethoxazole/Trimethoprim 1 tab PO BID #14 tablet 06/07/18 [Bactrim Ds -] Scopolamine Hydrobromide 1 patch TD Q3D@1000 patch.td72 07/11/18 [Transderm-Scop -] REVIEW OF SYSTEMS As per HPI PHYSICAL EXAMINATION Vital Signs - 24 hr 10/06/18 10/06/18 20:30 20:35 Temperature 99.1 F 101.8 F H Pulse Rate 108 H Respiratory 22 H Rate Blood Pressure 110/64 O2 Sat by Pulse 95 Oximetry (%) GENERAL: Awake, responsive to tactile stimuli, non-verbal HEENT: NC/AT, PERRLA, anicteric NECK: trachea midline, supple, no LAD, no JVD LUNGS: mild coarse breathing b/l HEART: tachycardic no m/r/g ABDOMEN: +bs, soft, NT, ND, G-tube c/d/i EXTREMITIES: 2+ pulses, warm, well-perfused. No calf tenderness. No peripheral edema. NEUROLOGICAL: limited exam, moves 4 extremities spontaneously PSYCHIATRIC: unable to assess SKIN: Warm, dry, normal turgor, no rashes or lesions noted, normal capillary refill. Laboratory Results - last 24 hr 10/06/18 10/06/18 10/06/18 20:58 21:30 21:30 WBC 10.3 H RBC 4.27 Hgb 14.5 Hct 42.0 MCV 98.5 H MCH 34.1 H MCHC 34.6 RDW 13.1 Plt Count 172 MPV 7.3 L Absolute Neuts (auto) 8.4 H Neutrophils % 81.7 D Lymphocytes % 11.9 D Monocytes % 6.1 Eosinophils % 0.0 D Basophils % 0.3 Nucleated RBC % 0 PT with INR 15.40 H INR 1.30 H PTT (Actin FS) 39.5 H Anticoagulation Therapy Puncture Site ABG pH ABG pCO2 at Pt Temp ABG pO2 at Pt Temp ABG HCO3 ABG O2 Sat (Measured) ABG O2 Content ABG Base Excess Brody Test VBG pH POC VBG pCO2 POC VBG pO2 VBG HCO3 VBG O2 Sat (Kim) VBG Base Excess Carboxyhemoglobin Methemoglobin O2 Delivery Device Oxygen Flow Rate Vent Mode Vent Rate Mechanical Rate Pressure Support Vent Sodium Potassium Chloride Carbon Dioxide Anion Gap BUN Creatinine Creat Clearance w eGFR Random Glucose Lactic Acid Calcium Total Bilirubin AST ALT Alkaline Phosphatase Troponin I Total Protein Albumin Urine Color Dk yellow Urine Appearance Cloudy Urine pH 5.5 Ur Specific [place] 1.024 Urine Protein Trace Urine Glucose (UA) Negative Urine Ketones Trace H Urine Blood 2+ H Urine Nitrite Negative Urine Bilirubin Negative Urine Urobilinogen 0.2 Ur Leukocyte Esterase Trace Urine WBC (Auto) 1 Urine RBC (Auto) 99.1 Urine Casts (Auto) 7 U Epithel Cells (Auto) 0.5 Urine Bacteria (Auto) 0.3 Urine Yeast (Auto) None seen Influenza A (Rapid) Influenza B (Rapid) Blood Type Antibody Screen 10/06/18 10/06/18 10/06/18 21:30 21:30 21:30 WBC RBC Hgb Hct MCV MCH MCHC RDW Plt Count MPV Absolute Neuts (auto) Neutrophils % Lymphocytes % Monocytes % Eosinophils % Basophils % Nucleated RBC % PT with INR INR PTT (Actin FS) Anticoagulation Therapy Puncture Site ABG pH ABG pCO2 at Pt Temp ABG pO2 at Pt Temp ABG HCO3 ABG O2 Sat (Measured) ABG O2 Content ABG Base Excess Brody Test VBG pH 7.28 L POC VBG pCO2 62.6 H POC VBG pO2 26.4 L VBG HCO3 28.4 VBG O2 Sat (Kim) 39.1 L VBG Base Excess 0.3 Carboxyhemoglobin Methemoglobin O2 Delivery Device Oxygen Flow Rate Vent Mode Vent Rate Mechanical Rate Pressure Support Vent Sodium 138 Potassium 4.0 Chloride 101 Carbon Dioxide 30 Anion Gap 6 L BUN 10 Creatinine 0.6 Creat Clearance w eGFR 162.86 Random Glucose 79 Lactic Acid 2.0 Calcium 8.5 Total Bilirubin 0.2 AST 63 H ALT 69 H Alkaline Phosphatase 115 Troponin I Total Protein 7.8 Albumin 3.6 Urine Color Urine Appearance Urine pH Ur Specific [place] Urine Protein Urine Glucose (UA) Urine Ketones Urine Blood Urine Nitrite Urine Bilirubin Urine Urobilinogen Ur Leukocyte Esterase Urine WBC (Auto) Urine RBC (Auto) Urine Casts (Auto) U Epithel Cells (Auto) Urine Bacteria (Auto) Urine Yeast (Auto) Influenza A (Rapid) Influenza B (Rapid) Blood Type Antibody Screen 10/06/18 10/06/18 10/06/18 21:30 21:30 22:13 WBC RBC Hgb Hct MCV MCH MCHC RDW Plt Count MPV Absolute Neuts (auto) Neutrophils % Lymphocytes % Monocytes % Eosinophils % Basophils % Nucleated RBC % PT with INR INR PTT (Actin FS) Anticoagulation Therapy Puncture Site ABG pH ABG pCO2 at Pt Temp ABG pO2 at Pt Temp ABG HCO3 ABG O2 Sat (Measured) ABG O2 Content ABG Base Excess Brody Test VBG pH POC VBG pCO2 POC VBG pO2 VBG HCO3 VBG O2 Sat (Kim) VBG Base Excess Carboxyhemoglobin Methemoglobin O2 Delivery Device Oxygen Flow Rate Vent Mode Vent Rate Mechanical Rate Pressure Support Vent Sodium Potassium Chloride Carbon Dioxide Anion Gap BUN Creatinine Creat Clearance w eGFR Random Glucose Lactic Acid Calcium Total Bilirubin AST ALT Alkaline Phosphatase Troponin I < 0.02 Total Protein Albumin Urine Color Urine Appearance Urine pH Ur Specific [place] Urine Protein Urine Glucose (UA) Urine Ketones Urine Blood Urine Nitrite Urine Bilirubin Urine Urobilinogen Ur Leukocyte Esterase Urine WBC (Auto) Urine RBC (Auto) Urine Casts (Auto) U Epithel Cells (Auto) Urine Bacteria (Auto) Urine Yeast (Auto) Influenza A (Rapid) Negative Influenza B (Rapid) Negative Blood Type O NEGATIVE Antibody Screen Negative 10/06/18 22:35 WBC RBC Hgb Hct MCV MCH MCHC RDW Plt Count MPV Absolute Neuts (auto) Neutrophils % Lymphocytes % Monocytes % Eosinophils % Basophils % Nucleated RBC % PT with INR INR PTT (Actin FS) Anticoagulation Therapy No Result Required. Puncture Site Right radial ABG pH 7.33 L ABG pCO2 at Pt Temp 45.6 H ABG pO2 at Pt Temp 87.8 ABG HCO3 23.4 ABG O2 Sat (Measured) 96.4 ABG O2 Content No Result Required. ABG Base Excess -2.0 Brody Test Positive VBG pH POC VBG pCO2 POC VBG pO2 VBG HCO3 VBG O2 Sat (Kim) VBG Base Excess Carboxyhemoglobin 1.0 Methemoglobin 0.0 O2 Delivery Device No Result Required. Oxygen Flow Rate Room air Vent Mode No Result Required. Vent Rate No Result Required. Mechanical Rate No Result Required. Pressure Support Vent No Result Required. Sodium Potassium Chloride Carbon Dioxide Anion Gap BUN Creatinine Creat Clearance w eGFR Random Glucose Lactic Acid Calcium Total Bilirubin AST ALT Alkaline Phosphatase Troponin I Total Protein Albumin Urine Color Urine Appearance Urine pH Ur Specific [place] Urine Protein Urine Glucose (UA) Urine Ketones Urine Blood Urine Nitrite Urine Bilirubin Urine Urobilinogen Ur Leukocyte Esterase Urine WBC (Auto) Urine RBC (Auto) Urine Casts (Auto) U Epithel Cells (Auto) Urine Bacteria (Auto) Urine Yeast (Auto) Influenza A (Rapid) Influenza B (Rapid) Blood Type Antibody Screen ASSESSMENT/PLAN: 28 y/o M from [facility] w/ PMHx CP, epilepsy, recurrent aspiration PNA , recurrent UTI, scoliosis s/p spinal Sx/hardware, s/p PEG placement, p/w fever/ tachycardia/tachypnea of unclear etiology #A: -SIRS/Sepsis 2/2 aspiration PNA vs C diff vs UTI -mild hypercapnea -mild transaminitis -witnessed tonic-clonic activity in ED -h/o epilepsy requiring multiple AEDs -h/o recurrent aspiration PNA, recurrent UTI -G-tube in place c/d/i -maintaining saturation on RA #P: -Vanc/Aztreonam given by ED appropriately covers past infection Hx -ID consulted -pulm consulted -verdin ordered -strict I/O -C diff studies -f/u C/S -NPO -TF at [facility] unknown -restarted home anti-convulsants, NF medications will need to be provided by [facility] -f/u LFTs -f/u CBC, BMP, Mg, Phos -no further IVF -Lovenox sq for DVT PPx -full code -admit to med/surg Visit type - Emergency Visit Emergency Visit: Yes Care time: The patient presented to the Emergency Department on the above date and was hospitalized for further evaluation of their emergent condition. - New Patient This patient is new to me today: Yes Date on this admission: 10/07/18 - Critical Care Critical Care patient: No
--- NOTE | 2018-10-07 02:01 | PN ---
Teaching Attending Note Name of Resident: Yoel Randhawa ATTENDING PHYSICIAN STATEMENT I saw and evaluated the patient. I reviewed the resident's note and discussed the case with the resident. I agree with the resident's findings and plan as documented. SUBJECTIVE:He is a 28 Y/O M W severe CP, bed bound trached and PEGed, multiple admission for UTI , aspiration PNA, P/W 1 day of fever at the [place]. in the ED was found to be febrile with leukocytes and hematuria and been admitted for sepsis in the setting of possible UTI VS PNA. OBJECTIVE: Dose not look in distress Abdomen is soft CVS:S1S2 ASSESSMENT AND PLAN: Will treat him for most likely UTI at this time. pending uCX , BCX, sputum CX. Rest of the management per HS.
[2018-10-07] MEDS: RUFINAMIDE GT SCH ×4 (05:55→21:50)
[2018-10-07 06:27] LABS: BASO % 0.3 % (0-2.0); EOS % 0.1 % (0-4.5); HEMATOCRIT 37.9 % (35.4-49); LYMPH % 21.7 % (8-40); MCH 33.8 pg (25.7-33.7); MCHC 34.3 g/dl (32.0-35.9); MEAN CELL VOLUME 98.8 fl (80-96); MEAN PLT VOLUME 7.3 fl (7.5-11.1); MONO % 7.9 % (3.8-10.2); PLATELET COUNT 152 K/MM3 (134-434); RBC 3.84 M/mm3 (4.00-5.60); RDW 13.3 % (11.9-15.9); WHITE BLOOD COUNT 5.8 K/mm3 (4.0-10.0)
[2018-10-07 06:56] LABS: ALBUMIN 3.2 g/dl (3.4-5.0); ALK PHOS 101 U/L (45-117); ANION GAP 6 MMOL/L (8-16); BILIRUBIN,TOTAL 0.3 mg/dL (0.2-1); BLOOD UREA NITROGEN 8 mg/dL (7-18); CHLORIDE 103 mmol/L (98-107); CO2 26 mmol/L (21-32); CREATININE 0.3 mg/dL (0.55-1.3); GLUCOSE,RANDOM 75 mg/dL (74-106); MAGNESIUM 1.8 mg/dL (1.8-2.4); PHOSPHOROUS 2.8 mg/dL (2.5-4.9); POTASSIUM 4.7 mmol/L (3.5-5.1); SGOT/AST 71 U/L (15-37); SGPT/ALT 71 U/L (13-61); SODIUM 134 mmol/L (136-145); TOT PROT 6.9 g/dl (6.4-8.2)
[2018-10-07] MEDS ORDERED: ZONISAMIDE 100 MG CAPSULE GT SCH (09:00)
--- NOTE | 2018-10-07 09:16 | PN ---
Teaching Attending Note Name of Resident: Sue Giraldo ATTENDING PHYSICIAN STATEMENT I saw and evaluated the patient. I reviewed the resident's note and discussed the case with the resident. I agree with the resident's findings and plan as documented with exceptions below. SUBJECTIVE: Patient seen and examined, non verbal, aide at bedside, no new witnessed seizures as discussed, unable to further assess ROS. OBJECTIVE: Vital Signs Period Temp Pulse Resp BP Sys/Grossman Pulse Ox Last 24 Hr 97.4 F-101.8 F 80-108 19-22 101-132/64-80 95-99 Intake & Output 10/04/18 10/05/18 10/06/18 10/07/18 23:59 23:59 23:59 23:59 Weight 116 lb General: sitting in bed, audible rhonchi, mild tachypnea, Chest: poor effort, scattered rhonchi, limited exam Abdomen:soft, PEG in place, positive bowel sounds Extremities: contractures Home Medications Medication Instructions Recorded Clobazam [Onfi -] 10 mg GT HS 11/23/17 Diazepam [Diastat] 10 mg RC ONCE PRN 11/23/17 Fluticasone Prop 0.05% Nasal 2 spray NS HS 11/23/17 [Flonase -] Lorazepam [Ativan] 1 mg GT ASDIR PRN 11/23/17 Polyethylene Glycol 3350 [Miralax 17 gm GT ASDIR 11/23/17 119 gm Btl -] Rufinamide [Banzel] 1,600 mg GT BID 11/23/17 Zonisamide [Zonegran -] 50 mg GT HS 11/23/17 Zonisamide [Zonegran] 200 mg GT TID 11/23/17 Topiramate [Topamax] 300 mg GT DAILY 02/14/18 Carbamazepine 300 mg GT DAILY 04/02/18 Ipratropium 0.02% Nebulizer 1 amp IH QID PRN 04/02/18 [Atrovent 0.02% Nebulizer -] Topiramate [Qudexy Xr] 400 mg GT HS 04/02/18 Carbamazepine 400 mg GT AM 04/03/18 Carbamazepine 400 mg GT HS 04/03/18 Silver Sulfadiazine 1% Top Cr 1 appful TP TID 04/22/18 Clobazam [Onfi -] 5 mg GT DAILY 04/23/18 EPINEPHrine (EPI-PEN 0.3MG) 0.3 mg IM ASDIR 04/23/18 [Epipen 0.3MG -] Hydrocolloid Dressing [Duoderm Cgf] 1 applic TP DAILY PRN 04/23/18 Levofloxacin [Levaquin] 500 mg PO DAILY #4 tablet 04/26/18 Sulfamethoxazole/Trimethoprim 1 tab PO BID #14 tablet 06/07/18 [Bactrim Ds -] Scopolamine Hydrobromide 1 patch TD Q3D@1000 patch.td72 07/11/18 [Transderm-Scop -] Active Medications Carbamazepine (Tegretol Oral Suspension -) 300 mg GT DAILY@1400 BRAD Carbamazepine (Tegretol Oral Suspension -) 400 mg GT BID@0700,2200 BRAD Clobazam (Onfi -) 5 mg GT DAILY [facility] Clobazam (Onfi -) 10 mg GT HS [facility] Diazepam (Diastat *Pediatric Rectal Gel* -) 10 mg RC ONCE PRN PRN Reason: seizure Enoxaparin Sodium (Lovenox -) 40 mg SQ DAILY [facility] Lorazepam (Ativan -) 1 mg GT ASDIR PRN PRN Reason: seizure Non-Formulary Medication (Rufinamide [Banzel]) 1,600 mg GT BID [facility] Last Admin: 10/07/18 05:55 Dose: Not Given Non-Formulary Medication (Topiramate [Qudexy Xr]) 400 mg GT HS [facility] Topiramate (Topamax -) 300 mg GT DAILY [facility] Zonisamide (Zonisamide) 50 mg GT HS [facility] Zonisamide (Zonisamide) 200 mg GT TID [facility] Laboratory Results - last 24 hr 10/06/18 10/06/18 10/06/18 20:58 21:30 21:30 WBC 10.3 H RBC 4.27 Hgb 14.5 Hct 42.0 MCV 98.5 H MCH 34.1 H MCHC 34.6 RDW 13.1 Plt Count 172 MPV 7.3 L Absolute Neuts (auto) 8.4 H Neutrophils % 81.7 D Lymphocytes % 11.9 D Monocytes % 6.1 Eosinophils % 0.0 D Basophils % 0.3 Nucleated RBC % 0 PT with INR 15.40 H INR 1.30 H PTT (Actin FS) 39.5 H Anticoagulation Therapy Puncture Site ABG pH ABG pCO2 at Pt Temp ABG pO2 at Pt Temp ABG HCO3 ABG O2 Sat (Measured) ABG O2 Content ABG Base Excess Brody Test VBG pH POC VBG pCO2 POC VBG pO2 VBG HCO3 VBG O2 Sat (Kim) VBG Base Excess Carboxyhemoglobin Methemoglobin O2 Delivery Device Oxygen Flow Rate Vent Mode Vent Rate Mechanical Rate Pressure Support Vent Sodium Potassium Chloride Carbon Dioxide Anion Gap BUN Creatinine Creat Clearance w eGFR Random Glucose Lactic Acid Calcium Phosphorus Magnesium Total Bilirubin AST ALT Alkaline Phosphatase Troponin I Total Protein Albumin Urine Color Dk yellow Urine Appearance Cloudy Urine pH 5.5 Ur Specific [place] 1.024 Urine Protein Trace Urine Glucose (UA) Negative Urine Ketones Trace H Urine Blood 2+ H Urine Nitrite Negative Urine Bilirubin Negative Urine Urobilinogen 0.2 Ur Leukocyte Esterase Trace Urine WBC (Auto) 1 Urine RBC (Auto) 99.1 Urine Casts (Auto) 7 U Epithel Cells (Auto) 0.5 Urine Bacteria (Auto) 0.3 Urine Yeast (Auto) None seen Influenza A (Rapid) Influenza B (Rapid) Blood Type Antibody Screen 10/06/18 10/06/18 10/06/18 21:30 21:30 21:30 WBC RBC Hgb Hct MCV MCH MCHC RDW Plt Count MPV Absolute Neuts (auto) Neutrophils % Lymphocytes % Monocytes % Eosinophils % Basophils % Nucleated RBC % PT with INR INR PTT (Actin FS) Anticoagulation Therapy Puncture Site ABG pH ABG pCO2 at Pt Temp ABG pO2 at Pt Temp ABG HCO3 ABG O2 Sat (Measured) ABG O2 Content ABG Base Excess Brody Test VBG pH 7.28 L POC VBG pCO2 62.6 H POC VBG pO2 26.4 L VBG HCO3 28.4 VBG O2 Sat (Kim) 39.1 L VBG Base Excess 0.3 Carboxyhemoglobin Methemoglobin O2 Delivery Device Oxygen Flow Rate Vent Mode Vent Rate Mechanical Rate Pressure Support Vent Sodium 138 Potassium 4.0 Chloride 101 Carbon Dioxide 30 Anion Gap 6 L BUN 10 Creatinine 0.6 Creat Clearance w eGFR 162.86 Random Glucose 79 Lactic Acid 2.0 Calcium 8.5 Phosphorus Magnesium Total Bilirubin 0.2 AST 63 H ALT 69 H Alkaline Phosphatase 115 Troponin I Total Protein 7.8 Albumin 3.6 Urine Color Urine Appearance Urine pH Ur Specific [place] Urine Protein Urine Glucose (UA) Urine Ketones Urine Blood Urine Nitrite Urine Bilirubin Urine Urobilinogen Ur Leukocyte Esterase Urine WBC (Auto) Urine RBC (Auto) Urine Casts (Auto) U Epithel Cells (Auto) Urine Bacteria (Auto) Urine Yeast (Auto) Influenza A (Rapid) Influenza B (Rapid) Blood Type Antibody Screen 10/06/18 10/06/18 10/06/18 21:30 21:30 22:13 WBC RBC Hgb Hct MCV MCH MCHC RDW Plt Count MPV Absolute Neuts (auto) Neutrophils % Lymphocytes % Monocytes % Eosinophils % Basophils % Nucleated RBC % PT with INR INR PTT (Actin FS) Anticoagulation Therapy Puncture Site ABG pH ABG pCO2 at Pt Temp ABG pO2 at Pt Temp ABG HCO3 ABG O2 Sat (Measured) ABG O2 Content ABG Base Excess Brody Test VBG pH POC VBG pCO2 POC VBG pO2 VBG HCO3 VBG O2 Sat (Kim) VBG Base Excess Carboxyhemoglobin Methemoglobin O2 Delivery Device Oxygen Flow Rate Vent Mode Vent Rate Mechanical Rate Pressure Support Vent Sodium Potassium Chloride Carbon Dioxide Anion Gap BUN Creatinine Creat Clearance w eGFR Random Glucose Lactic Acid Calcium Phosphorus Magnesium Total Bilirubin AST ALT Alkaline Phosphatase Troponin I < 0.02 Total Protein Albumin Urine Color Urine Appearance Urine pH Ur Specific [place] Urine Protein Urine Glucose (UA) Urine Ketones Urine Blood Urine Nitrite Urine Bilirubin Urine Urobilinogen Ur Leukocyte Esterase Urine WBC (Auto) Urine RBC (Auto) Urine Casts (Auto) U Epithel Cells (Auto) Urine Bacteria (Auto) Urine Yeast (Auto) Influenza A (Rapid) Negative Influenza B (Rapid) Negative Blood Type O NEGATIVE Antibody Screen Negative 10/06/18 10/07/18 10/07/18 22:35 05:30 05:30 WBC 5.8 RBC 3.84 L Hgb 13.0 Hct 37.9 MCV 98.8 H MCH 33.8 H MCHC 34.3 RDW 13.3 Plt Count 152 MPV 7.3 L Absolute Neuts (auto) 4.1 Neutrophils % 70.0 Lymphocytes % 21.7 D Monocytes % 7.9 Eosinophils % 0.1 D Basophils % 0.3 Nucleated RBC % 0 PT with INR INR PTT (Actin FS) Anticoagulation Therapy No Result Required. Puncture Site Right radial ABG pH 7.33 L ABG pCO2 at Pt Temp 45.6 H ABG pO2 at Pt Temp 87.8 ABG HCO3 23.4 ABG O2 Sat (Measured) 96.4 ABG O2 Content No Result Required. ABG Base Excess -2.0 Brody Test Positive VBG pH POC VBG pCO2 POC VBG pO2 VBG HCO3 VBG O2 Sat (Kim) VBG Base Excess Carboxyhemoglobin 1.0 Methemoglobin 0.0 O2 Delivery Device No Result Required. Oxygen Flow Rate Room air Vent Mode No Result Required. Vent Rate No Result Required. Mechanical Rate No Result Required. Pressure Support Vent No Result Required. Sodium 134 L Potassium 4.7 Chloride 103 Carbon Dioxide 26 Anion Gap 6 L BUN 8 Creatinine 0.3 L Creat Clearance w eGFR 362.41 Random Glucose 75 Lactic Acid Calcium 8.0 L Phosphorus 2.8 Magnesium 1.8 Total Bilirubin 0.3 AST 71 H ALT 71 H Alkaline Phosphatase 101 Troponin I Total Protein 6.9 Albumin 3.2 L Urine Color Urine Appearance Urine pH Ur Specific [place] Urine Protein Urine Glucose (UA) Urine Ketones Urine Blood Urine Nitrite Urine Bilirubin Urine Urobilinogen Ur Leukocyte Esterase Urine WBC (Auto) Urine RBC (Auto) Urine Casts (Auto) U Epithel Cells (Auto) Urine Bacteria (Auto) Urine Yeast (Auto) Influenza A (Rapid) Influenza B (Rapid) Blood Type Antibody Screen CXR results reviewed ASSESSMENT AND PLAN: 28 yom with cerebral palsy, epilepsy, recurrent aspiration PNA, recurrent UTI, scoliosis s/p spinal Sx/hardware, s/p PEG placement admitted with GTC seizure and sepsis, suspected due to Aspiration PNA. -Sepsis, suspected due to Aspiration PNA -GTC seizure, suspect in the setting of infectious process -Cerebral palsy -Epilepsy -s/p PEG placement -Scoliosis s/pspinal sx/hardware Plan: Aztreonam/vanco. ID input. CT chest Standing and prn nebs. Chest PT. Follow up blood cx. u/a not consistent with infectious process. Suspect seizure in the setting of infectious process. Confirm and continue home seizure meds. Seizure precautions. neurology input if recurrent episodes noted. NPO except meds Start IV hydration, resume tube feeds in 24-48 hours if improved clinically [id number] lovenox Dispo pending clinical improvement. Plan discussed with aide at bedside.
[2018-10-07] MEDS ORDERED: DEXTROSE 5%-NORMAL SALINE 1,000 ML IV SCH (09:30)
[2018-10-07] MEDS: cloBAZam 10 MG TABLET GT SCH ×2 (09:43→21:49)
[2018-10-07] MEDS: ENOXAPARIN NA (PORCINE) 40 MG/0.4 ML DISP.SYRIN SQ SCH (09:43)
[2018-10-07] MEDS: carBAMazepine 200 MG/10 ML UNIT-DOSE CUP GT SCH ×3 (09:43→21:52)
[2018-10-07] MEDS ORDERED: TOPIRAMATE 100 MG TABLET GT SCH (10:00)
[2018-10-07 10:57] VITALS: BMI 20.7
[2018-10-07] MEDS: ZONISAMIDE 100 MG/10 ML ORAL SUSPENSION GT SCH ×4 (11:06→22:39)
--- NOTE | 2018-10-07 11:06 | EKG ---
Test Reason : Blood Pressure : / mmHG Vent. Rate : 086 BPM Atrial Rate : 086 BPM P-R Int : 156 ms QRS Dur : 100 ms QT Int : 380 ms P-R-T Axes : 045 136 046 degrees QTc Int : 454 ms NORMAL SINUS RHYTHM POSSIBLE LEFT ATRIAL ENLARGEMENT RIGHT AXIS DEVIATION INCOMPLETE RIGHT BUNDLE BRANCH BLOCK RIGHT VENTRICULAR HYPERTROPHY CANNOT RULE OUT INFERIOR INFARCT , AGE UNDETERMINED ABNORMAL ECG WHEN COMPARED WITH ECG OF 30-JUN-2018 14:14, NO SIGNIFICANT CHANGE WAS FOUND Confirmed by MD Lou, Gama ([id number]) on 10/07/2018 11:06:39 AM Referred By: Confirmed By:Gama Blake MD
[2018-10-07] MEDS: IPRATROPIUM BR 0.02% 0.5 MG/2.5 ML VIAL.NEB. NEB SCH ×3 (11:40→20:30)
--- NOTE | 2018-10-07 11:48 | CON.PULM ---
Consult Consult Specialty:: PULM/CCM Referred by:: Hospitalist Reason for Consultation:: PNA - History of Present Illness Chief Complaint: Fever History of Present Illness: 28 M, [place] [facility] Past medical history of CP, epilepsy, recurrent aspiration PNA, recurrent UTI, scoliosis s/p spinal Sx/hardware, and PEG placement. Admitted via the ER due to fever and diarrhea. Apparently, he was also observed to have a brief tonic-clonic seizure. The patient is non-verbal and not able to provide any history. CT: GUILHREME infiltrates and LLL atelectasis. Severe spinal deformity due to scoliosis. Extensive hardware noted. Due to multiple ABX allergies, he received Azactam and Vancomycin in the ER. Prior sputum cultures grew MSSA and Pseudonomnas. 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 disability) Pulmonary: Yes: Pneumonia Gastrointestinal: Yes: GERD Renal/: Yes: UTI (recent enterococcal uti- 03/2018) Musculoskeletal: Yes: Other (functional quadriplegia) - Alcohol/Substance Use Hx Alcohol Use: No History of Substance Use: reports: None - Smoking History Smoking history: Never smoked Have you smoked in the past 12 months: No - Social History Usual Living Arrangement: Shelter ADL: Support Services History of Recent Travel: No Home Medications - Allergies Allergies/Adverse Reactions: Allergies Allergy/AdvReac Type Severity Reaction Status Date / Time albuterol Allergy Verified 06/30/18 12:44 Cephalosporins Allergy Verified 06/30/18 12:44 latex Allergy Verified 06/30/18 12:44 Penicillins Allergy Verified 06/30/18 12:44 shrimp Allergy Verified 06/30/18 12:44 wool Allergy Verified 06/30/18 12:44 - Home Medications Home Medications: Ambulatory Orders Clobazam [Onfi -] 10 mg GT HS 11/23/17 Diazepam [Diastat] 10 mg RC ONCE PRN 11/23/17 Fluticasone Prop 0.05% Nasal [Flonase -] 2 spray NS HS 11/23/17 Lorazepam [Ativan] 1 mg GT ASDIR PRN 11/23/17 Polyethylene Glycol 3350 [Miralax 119 gm Btl -] 17 gm GT ASDIR 11/23/17 Rufinamide [Banzel] 1,600 mg GT BID 11/23/17 Zonisamide [Zonegran -] 50 mg GT HS 11/23/17 Zonisamide [Zonegran] 200 mg GT TID 11/23/17 Topiramate [Topamax] 300 mg GT DAILY 02/14/18 Carbamazepine 300 mg GT DAILY 04/02/18 Ipratropium 0.02% Nebulizer [Atrovent 0.02% Nebulizer -] 1 amp IH QID PRN Topiramate [Qudexy Xr] 400 mg GT HS 04/02/18 Silver Sulfadiazine 1% Top Cr 1 appful TP TID 04/22/18 Clobazam [Onfi -] 5 mg GT DAILY 04/23/18 EPINEPHrine (EPI-PEN 0.3MG) [Epipen 0.3MG -] 0.3 mg IM ASDIR 04/23/18 Hydrocolloid Dressing [Duoderm Cgf] 1 applic TP DAILY PRN 04/23/18 Levofloxacin [Levaquin] 500 mg PO DAILY #4 tablet 04/26/18 Sulfamethoxazole/Trimethoprim [Bactrim Ds -] 1 tab PO BID #14 tablet 06/07/18 Scopolamine Hydrobromide [Transderm-Scop -] 1 patch TD Q3D@1000 patch.td72 Review of Systems Unable to obtain ROS, reason: unable to provide Physical Exam Vital Sings: Vital Signs Temperature 97.8 F 10/07/18 07:00 Pulse Rate 76 10/07/18 07:00 Respiratory Rate 20 10/07/18 07:00 Blood Pressure 102/63 10/07/18 07:00 O2 Sat by Pulse Oximetry (%) 96 10/07/18 08:00 Constitutional: Yes: No Distress, Thin Eyes: Yes: Conjunctiva Clear HENT: Yes: Atraumatic Neck: Yes: Supple, Trachea Midline Cardiovascular: Yes: Regular Rate and Rhythm Respiratory: Yes: Cough, Diminished, Rhonchi. No: Accessory Muscle Use, Rales, SOB, SOB on Exertion, Stridor, Tachypnea, Wheezes ...Inspection: Yes: Scoliosis ...Clubbing: No Gastrointestinal: Yes: Normal Bowel Sounds Musculoskeletal: Yes: Joint Stiffness Extremities: Yes: Deformity Edema: No Peripheral Pulses WNL: Yes Integumentary: Yes: WNL Labs: CBC, BMP 10/07/18 05:30 10/07/18 05:30 ABG Results ABG pH 7.33 (7.35-7.45) L 10/06/18 22:35 ABG pCO2 at Pt Temp 45.6 mmHg (35-45) H 10/06/18 22:35 ABG pO2 at Pt Temp 87.8 mmHg (80-105) 10/06/18 22:35 ABG HCO3 23.4 mmol/L (22-27) 10/06/18 22:35 ABG O2 Sat (Measured) 96.4 % (95-98) 10/06/18 22:35 ABG O2 Content No Result Required. 10/06/18 22:35 ABG Base Excess -2.0 meq/l (-2-2) 10/06/18 22:35 Imaging - Results Chest X-ray: Report Reviewed, Image Reviewed Cat Scan: Report Reviewed, Image Reviewed Problem List - Problems (1) Fever Code(s): R50.9 - FEVER, UNSPECIFIED (2) Aspiration pneumonia Code(s): J69.0 - PNEUMONITIS DUE TO INHALATION OF FOOD AND VOMIT (3) Atelectasis of left lung Code(s): J98.11 - ATELECTASIS (4) Gastrostomy tube dependent Code(s): Z93.1 - GASTROSTOMY STATUS (5) Pneumonia Code(s): J18.9 - PNEUMONIA, UNSPECIFIED ORGANISM (6) Allergy to multiple antibiotics Code(s): Z88.1 - ALLERGY STATUS TO OTHER ANTIBIOTIC AGENTS STATUS (7) Cerebral palsy Code(s): G80.9 - CEREBRAL PALSY, UNSPECIFIED Qualifiers: 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(s): G80.0 - Spastic quadriplegic cerebral palsy (8) Functional quadriplegia Code(s): R53.2 - FUNCTIONAL QUADRIPLEGIA (9) Scoliosis Code(s): M41.9 - SCOLIOSIS, UNSPECIFIED Qualifiers: Scoliosis type: unspecified scoliosis Spinal region: thoracolumbar Qualified Code(s): M41.9 - Scoliosis, unspecified (10) Seizure Code(s): R56.9 - UNSPECIFIED CONVULSIONS (11) PNA (pneumonia) Code(s): J18.9 - PNEUMONIA, UNSPECIFIED ORGANISM Qualifiers: Pneumonia type: due to unspecified organism Laterality: unspecified laterality Lung location: unspecified part of lung Qualified Code(s): J18.9 - Pneumonia, unspecified organism Assessment/Plan Patient has received Azactam and Vancomycin last night in the ED. Noted ID consult has been called. Aspiration precautions. There is no obvious contraindication for enteral feeds O2 as needed, currently saturating well on RA Daily Medrol Will follow Thank you. Dr Davidson
[2018-10-07] MEDS ORDERED: HYDROCOLLOID DRESSING TP PRN (11:59)
[2018-10-07] MEDS ORDERED: IPRATROPIUM BR 0.02% 0.5 MG/2.5 ML VIAL.NEB. NEB PRN (11:59)
[2018-10-07] MEDS ORDERED: POLYETHYLENE GLYCOL 3350 119 GM BTL GT SCH (12:00)
[2018-10-07] MEDS ORDERED: EPINEPHrine 1:1,000 0.3 MG/0.3 ML SYR IM PRN (12:00)
[2018-10-07] MEDS ORDERED: RUFINAMIDE GT SCH (12:00)
[2018-10-07] MEDS ORDERED: MINERAL OIL ENEMA 133 ML ENEMA PR PRN (12:13)
[2018-10-07] MEDS: methylPREDNISolone NA SUCC 40 MG/1 ML VIAL IVPUSH SCH (12:48)
[2018-10-07] MEDS: SCOPOLAMINE HYDROBROMIDE 1 PATCH PATCH.TD72 TD SCH (12:48)
--- NOTE | 2018-10-07 13:04 | CON.ID ---
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 palsy, intellectual disability) Pulmonary: Yes: Pneumonia Gastrointestinal: Yes: GERD Renal/: Yes: UTI (recent enterococcal uti- 03/2018) Musculoskeletal: Yes: Other (functional quadriplegia) - Alcohol/Substance Use Hx Alcohol Use: No History of Substance Use: reports: None - Smoking History Smoking history: Never smoked Have you smoked in the past 12 months: No - Social History Usual Living Arrangement: Skilled Nursing ADL: Support Services History of Recent Travel: No Home Medications - Allergies Allergies/Adverse Reactions: Allergies Allergy/AdvReac Type Severity Reaction Status Date / Time albuterol Allergy Verified 06/30/18 12:44 Cephalosporins Allergy Verified 06/30/18 12:44 latex Allergy Verified 06/30/18 12:44 Penicillins Allergy Verified 06/30/18 12:44 shrimp Allergy Verified 06/30/18 12:44 wool Allergy Verified 06/30/18 12:44 - Home Medications Home Medications: Ambulatory Orders Clobazam [Onfi -] 10 mg GT HS 11/23/17 Diazepam [Diastat] 10 mg RC ONCE PRN 11/23/17 Fluticasone Prop 0.05% Nasal [Flonase -] 2 spray NS HS 11/23/17 Lorazepam [Ativan] 1 mg GT ASDIR PRN 11/23/17 Polyethylene Glycol 3350 [Miralax 119 gm Btl -] 17 gm GT ASDIR 11/23/17 Rufinamide [Banzel] 1,600 mg GT BID 11/23/17 Zonisamide [Zonegran -] 50 mg GT HS 11/23/17 Zonisamide [Zonegran] 200 mg GT TID 11/23/17 Topiramate [Topamax] 300 mg GT DAILY 02/14/18 Carbamazepine 300 mg GT DAILY 04/02/18 Ipratropium 0.02% Nebulizer [Atrovent 0.02% Nebulizer -] 1 amp IH QID PRN Topiramate [Qudexy Xr] 400 mg GT HS 04/02/18 Silver Sulfadiazine 1% Top Cr 1 appful TP TID 04/22/18 Clobazam [Onfi -] 5 mg GT DAILY 04/23/18 EPINEPHrine (EPI-PEN 0.3MG) [Epipen 0.3MG -] 0.3 mg IM ASDIR 04/23/18 Hydrocolloid Dressing [Duoderm Cgf] 1 applic TP DAILY PRN 04/23/18 Scopolamine Hydrobromide [Transderm-Scop -] 1 patch TD Q3D@1000 patch.td72 Physical Exam Vital Signs: Vital Signs Temperature 97.8 F 10/07/18 07:00 Pulse Rate 76 10/07/18 07:00 Respiratory Rate 20 10/07/18 07:00 Blood Pressure 102/63 10/07/18 07:00 O2 Sat by Pulse Oximetry (%) 96 10/07/18 08:00 Labs: CBC, BMP 10/07/18 05:30 10/07/18 05:30
[2018-10-07] MEDS ORDERED: AZTREONAM 1 GM VIAL (RESTRICTED TO ID) ONE ×2 (13:11→17:27)
[2018-10-07] MEDS ORDERED: DEXTROSE 5%-WATER - 50 ML IVPB ONE ×2 (13:11→17:27)
[2018-10-07] MEDS: AZTREONAM 1 GM in DEXTROSE 5%-WATER - 50 ML IVPB SCH ×2 (13:14→18:49)
--- NOTE | 2018-10-07 14:06 | PN ---
Physical Exam: SUBJECTIVE: Patient seen and examined. No overnight events. OBJECTIVE: Vital Signs Period Temp Pulse Resp BP Sys/Grossman Pulse Ox Last 24 Hr 97.4 F-101.8 F 76-108 19-22 101-132/63-80 95-99 GENERAL: The patient is lying in bed, in no acute distress. HEAD: Normal with no signs of trauma. EYES: PERRL, sclera anicteric, conjunctiva clear. ENT: Moist mucous membranes. NECK: Trachea midline, supple. LUNGS: Breath sounds equal, rhonchi bilaterally, no wheezes HEART: Regular rate and rhythm, S1, S2 without murmur, rub or gallop. ABDOMEN: Soft, nontender, nondistended, normoactive bowel sounds, peg. EXTREMITIES: 2+ pulses, warm, no edema, contractured, muscle atrophy in extremities. NEUROLOGICAL: Motor and sensation not assessed, nonverbal. PSYCH: awake SKIN: Warm, dry Laboratory Results - last 24 hr 10/06/18 10/06/18 10/06/18 08:07 20:58 21:30 WBC 10.3 H RBC 4.27 Hgb 14.5 Hct 42.0 MCV 98.5 H MCH 34.1 H MCHC 34.6 RDW 13.1 Plt Count 172 MPV 7.3 L Absolute Neuts (auto) 8.4 H Neutrophils % 81.7 D Lymphocytes % 11.9 D Monocytes % 6.1 Eosinophils % 0.0 D Basophils % 0.3 Nucleated RBC % 0 PT with INR INR PTT (Actin FS) Anticoagulation Therapy Puncture Site ABG pH ABG pCO2 at Pt Temp ABG pO2 at Pt Temp ABG HCO3 ABG O2 Sat (Measured) ABG O2 Content ABG Base Excess Brody Test VBG pH POC VBG pCO2 POC VBG pO2 VBG HCO3 VBG O2 Sat (Kim) VBG Base Excess Carboxyhemoglobin Methemoglobin O2 Delivery Device Oxygen Flow Rate Vent Mode Vent Rate Mechanical Rate Pressure Support Vent Sodium Potassium Chloride Carbon Dioxide Anion Gap BUN Creatinine Creat Clearance w eGFR POC Glucometer Random Glucose Lactic Acid Calcium Phosphorus Magnesium Total Bilirubin AST ALT Alkaline Phosphatase Troponin I Total Protein Albumin Urine Color Dk yellow Urine Appearance Cloudy Urine pH 5.5 Ur Specific [place] 1.024 Urine Protein Trace Urine Glucose (UA) Negative Urine Ketones Trace H Urine Blood 2+ H Urine Nitrite Negative Urine Bilirubin Negative Urine Urobilinogen 0.2 Ur Leukocyte Esterase Trace Urine WBC (Auto) 1 Urine RBC (Auto) 99.1 Urine Casts (Auto) 7 U Epithel Cells (Auto) 0.5 Urine Bacteria (Auto) 0.3 Urine Yeast (Auto) None seen Influenza A (Rapid) Influenza B (Rapid) Blood Type O NEGATIVE Antibody Screen 10/06/18 10/06/18 10/06/18 21:30 21:30 21:30 WBC RBC Hgb Hct MCV MCH MCHC RDW Plt Count MPV Absolute Neuts (auto) Neutrophils % Lymphocytes % Monocytes % Eosinophils % Basophils % Nucleated RBC % PT with INR 15.40 H INR 1.30 H PTT (Actin FS) 39.5 H Anticoagulation Therapy Puncture Site ABG pH ABG pCO2 at Pt Temp ABG pO2 at Pt Temp ABG HCO3 ABG O2 Sat (Measured) ABG O2 Content ABG Base Excess Brody Test VBG pH 7.28 L POC VBG pCO2 62.6 H POC VBG pO2 26.4 L VBG HCO3 28.4 VBG O2 Sat (Kim) 39.1 L VBG Base Excess 0.3 Carboxyhemoglobin Methemoglobin O2 Delivery Device Oxygen Flow Rate Vent Mode Vent Rate Mechanical Rate Pressure Support Vent Sodium 138 Potassium 4.0 Chloride 101 Carbon Dioxide 30 Anion Gap 6 L BUN 10 Creatinine 0.6 Creat Clearance w eGFR 162.86 POC Glucometer Random Glucose 79 Lactic Acid Calcium 8.5 Phosphorus Magnesium Total Bilirubin 0.2 AST 63 H ALT 69 H Alkaline Phosphatase 115 Troponin I Total Protein 7.8 Albumin 3.6 Urine Color Urine Appearance Urine pH Ur Specific [place] Urine Protein Urine Glucose (UA) Urine Ketones Urine Blood Urine Nitrite Urine Bilirubin Urine Urobilinogen Ur Leukocyte Esterase Urine WBC (Auto) Urine RBC (Auto) Urine Casts (Auto) U Epithel Cells (Auto) Urine Bacteria (Auto) Urine Yeast (Auto) Influenza A (Rapid) Influenza B (Rapid) Blood Type Antibody Screen 10/06/18 10/06/18 10/06/18 21:30 21:30 21:30 WBC RBC Hgb Hct MCV MCH MCHC RDW Plt Count MPV Absolute Neuts (auto) Neutrophils % Lymphocytes % Monocytes % Eosinophils % Basophils % Nucleated RBC % PT with INR INR PTT (Actin FS) Anticoagulation Therapy Puncture Site ABG pH ABG pCO2 at Pt Temp ABG pO2 at Pt Temp ABG HCO3 ABG O2 Sat (Measured) ABG O2 Content ABG Base Excess Brody Test VBG pH POC VBG pCO2 POC VBG pO2 VBG HCO3 VBG O2 Sat (Kim) VBG Base Excess Carboxyhemoglobin Methemoglobin O2 Delivery Device Oxygen Flow Rate Vent Mode Vent Rate Mechanical Rate Pressure Support Vent Sodium Potassium Chloride Carbon Dioxide Anion Gap BUN Creatinine Creat Clearance w eGFR POC Glucometer Random Glucose Lactic Acid 2.0 Calcium Phosphorus Magnesium Total Bilirubin AST ALT Alkaline Phosphatase Troponin I < 0.02 Total Protein Albumin Urine Color Urine Appearance Urine pH Ur Specific [place] Urine Protein Urine Glucose (UA) Urine Ketones Urine Blood Urine Nitrite Urine Bilirubin Urine Urobilinogen Ur Leukocyte Esterase Urine WBC (Auto) Urine RBC (Auto) Urine Casts (Auto) U Epithel Cells (Auto) Urine Bacteria (Auto) Urine Yeast (Auto) Influenza A (Rapid) Influenza B (Rapid) Blood Type O NEGATIVE Antibody Screen Negative 10/06/18 10/06/18 10/07/18 22:13 22:35 05:30 WBC 5.8 RBC 3.84 L Hgb 13.0 Hct 37.9 MCV 98.8 H MCH 33.8 H MCHC 34.3 RDW 13.3 Plt Count 152 MPV 7.3 L Absolute Neuts (auto) 4.1 Neutrophils % 70.0 Lymphocytes % 21.7 D Monocytes % 7.9 Eosinophils % 0.1 D Basophils % 0.3 Nucleated RBC % 0 PT with INR INR PTT (Actin FS) Anticoagulation Therapy No Result Required. Puncture Site Right radial ABG pH 7.33 L ABG pCO2 at Pt Temp 45.6 H ABG pO2 at Pt Temp 87.8 ABG HCO3 23.4 ABG O2 Sat (Measured) 96.4 ABG O2 Content No Result Required. ABG Base Excess -2.0 Brody Test Positive VBG pH POC VBG pCO2 POC VBG pO2 VBG HCO3 VBG O2 Sat (Kim) VBG Base Excess Carboxyhemoglobin 1.0 Methemoglobin 0.0 O2 Delivery Device No Result Required. Oxygen Flow Rate Room air Vent Mode No Result Required. Vent Rate No Result Required. Mechanical Rate No Result Required. Pressure Support Vent No Result Required. Sodium Potassium Chloride Carbon Dioxide Anion Gap BUN Creatinine Creat Clearance w eGFR POC Glucometer Random Glucose Lactic Acid Calcium Phosphorus Magnesium Total Bilirubin AST ALT Alkaline Phosphatase Troponin I Total Protein Albumin Urine Color Urine Appearance Urine pH Ur Specific [place] Urine Protein Urine Glucose (UA) Urine Ketones Urine Blood Urine Nitrite Urine Bilirubin Urine Urobilinogen Ur Leukocyte Esterase Urine WBC (Auto) Urine RBC (Auto) Urine Casts (Auto) U Epithel Cells (Auto) Urine Bacteria (Auto) Urine Yeast (Auto) Influenza A (Rapid) Negative Influenza B (Rapid) Negative Blood Type Antibody Screen 10/07/18 10/07/18 05:30 11:30 WBC RBC Hgb Hct MCV MCH MCHC RDW Plt Count MPV Absolute Neuts (auto) Neutrophils % Lymphocytes % Monocytes % Eosinophils % Basophils % Nucleated RBC % PT with INR INR PTT (Actin FS) Anticoagulation Therapy Puncture Site ABG pH ABG pCO2 at Pt Temp ABG pO2 at Pt Temp ABG HCO3 ABG O2 Sat (Measured) ABG O2 Content ABG Base Excess Brody Test VBG pH POC VBG pCO2 POC VBG pO2 VBG HCO3 VBG O2 Sat (Kim) VBG Base Excess Carboxyhemoglobin Methemoglobin O2 Delivery Device Oxygen Flow Rate Vent Mode Vent Rate Mechanical Rate Pressure Support Vent Sodium 134 L Potassium 4.7 Chloride 103 Carbon Dioxide 26 Anion Gap 6 L BUN 8 Creatinine 0.3 L Creat Clearance w eGFR 362.41 POC Glucometer 76 Random Glucose 75 Lactic Acid Calcium 8.0 L Phosphorus 2.8 Magnesium 1.8 Total Bilirubin 0.3 AST 71 H ALT 71 H Alkaline Phosphatase 101 Troponin I Total Protein 6.9 Albumin 3.2 L Urine Color Urine Appearance Urine pH Ur Specific [place] Urine Protein Urine Glucose (UA) Urine Ketones Urine Blood Urine Nitrite Urine Bilirubin Urine Urobilinogen Ur Leukocyte Esterase Urine WBC (Auto) Urine RBC (Auto) Urine Casts (Auto) U Epithel Cells (Auto) Urine Bacteria (Auto) Urine Yeast (Auto) Influenza A (Rapid) Influenza B (Rapid) Blood Type Antibody Screen Active Medications Generic Name Dose Route Start Last Admin Trade Name Freq PRN Reason Stop Dose Admin Carbamazepine 300 mg 10/07/18 14:00 Tegretol Oral Suspension - GT DAILY@1400 [facility] Carbamazepine 400 mg 10/07/18 07:00 10/07/18 09:43 Tegretol Oral Suspension - GT 400 mg BID@0700,2200 [facility] Administration Clobazam 5 mg 10/07/18 10:00 10/07/18 09:43 Onfi - GT 5 mg DAILY [facility] Administration Clobazam 10 mg 10/07/18 22:00 Onfi - GT HS [facility] Enoxaparin Sodium 40 mg 10/07/18 10:00 10/07/18 09:43 Lovenox - SQ 40 mg DAILY [facility] Administration Epinephrine 0.3 mg 10/07/18 12:00 Epipen 0.3mg - IM PRN PRN IN EMERGENCY Fluticasone Propionate 2 spray 10/07/18 22:00 Flonase - NS HS [facility] Dextrose/Sodium Chloride 1,000 mls @ 83 mls/hr 10/07/18 09:30 10/07/18 11:12 D5-Ns - IV 83 mls/hr ASDIR [facility] Administration Aztreonam 1 gm/ Dextrose 50 mls @ 100 mls/hr 10/07/18 13:15 10/07/18 13:14 IVPB 100 mls/hr Q8H-IV [facility] Administration Protocol Vancomycin HCl 1,250 mg/ 250 mls @ 166.667 mls/hr 10/07/18 13:15 Dextrose IVPB Q24H [facility] Protocol Ipratropium [place] 1 amp 10/07/18 12:00 10/07/18 11:40 Atrovent 0.02% Nebulizer - NEB 1 amp RQID [facility] Administration Lorazepam 1 mg 10/06/18 23:51 Ativan - GT Q4H PRN seizure Methylprednisolone Sodium Succinate 40 mg 10/07/18 12:00 10/07/18 12:48 Solu-Medrol - IVPUSH 10/11/18 10:01 40 mg DAILY [facility] Administration Mineral Oil 133 ml 10/07/18 12:13 Fleet Mineral Oil Rectal Enema - [place] ONCE PRN BOWEL MOVEMENTS Patient's Own Med( 1,600 mg 10/07/18 11:45 10/07/18 12:48 Rufinamide [Banzel] GT 1,600 mg 1,600 Mg) BID [facility] Administration Patient's Own Med ( 400 mg 10/07/18 22:00 Topiramate [Qudexy GT Xr] 400 Mg) HS [facility] Scopolamine HBr 1 patch 10/07/18 12:45 10/07/18 12:48 Transderm-Scop - TD 1 patch Q3D@1000 [facility] Administration Silver Sulfadiazine 1 applic 10/07/18 14:00 Silvadene - TP TID [facility] Topiramate 300 mg 10/07/18 10:00 10/07/18 09:42 Topamax - GT 300 mg DAILY [facility] Administration Zonisamide 50 mg 10/07/18 22:00 Zonisamide GT HS [facility] Zonisamide 200 mg 10/07/18 09:00 10/07/18 11:06 Zonisamide GT 200 mg TID [facility] Administration ASSESSMENT/PLAN: 28 y/o M from [facility] PMHx of CP, epilepsy, recurrent aspiration PNA , recurrent UTI, scoliosis s/p spinal Sx/hardware, s/p PEG placement admitted for sepsis due to aspiration pneumonia: Sepsis due to aspiration pneumonia: -ct today with consolidation in left upper lobe and atelectasis in LLL -will continue Aztreonam, Vancomycin and Prednisone 40 mg daily, continue d5ns at 83 cc/hr -legionella urine negative -repositioning -frequent suctioning and chest PT BID -sputum culture, blood cx pending -will f/u ID and Pulmonary recommendations -cont Atrovent -NPO on admission, resumed Osmolite 1.2 today h/o of seizures: -witnessed tonic-clonic activity in ED, likely due to ongoing infection -h/o epilepsy requiring multiple AEDs, confirmed with [facility] documentation -feeds on hold -seizure precautions -maintaining saturation on RA transaminitis: -will monitor, likely due to acute process -no imaging now wound in the back: apply cream, repositioning DVT PPX: -Lovenox sq for DVT PPx full code Disposition: med/surg Problem List - Problems (1) Fever Code(s): R50.9 - FEVER, UNSPECIFIED (2) Aspiration pneumonia Code(s): J69.0 - PNEUMONITIS DUE TO INHALATION OF FOOD AND VOMIT (3) Atelectasis of left lung Code(s): J98.11 - ATELECTASIS (4) Cerebral palsy Code(s): G80.9 - CEREBRAL PALSY, UNSPECIFIED Qualifiers: 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(s): G80.0 - Spastic quadriplegic cerebral palsy (5) Sepsis Code(s): A41.9 - SEPSIS, UNSPECIFIED ORGANISM Qualifiers: Sepsis type: sepsis due to unspecified organism Qualified Code(s): A41.9 - Sepsis, unspecified organism Visit type - Emergency Visit Emergency Visit: Yes ED Registration Date: 10/06/18 Care time: The patient presented to the Emergency Department on the above date and was hospitalized for further evaluation of their emergent condition. - New Patient This patient is new to me today: Yes Date on this admission: 10/07/18 - Critical Care Critical Care patient: No - Discharge Referral Referred to [facility] No
[2018-10-07] MEDS: VANCOMYCIN HCL 1,250 MG in DEXTROSE 5%-WATER - 250 ML IVPB SCH (14:18)
[2018-10-07] MEDS: SILVER SULFADIAZINE 1% TOP CREAM 50 GM JAR TP SCH ×2 (14:18→21:51)
[2018-10-07] MEDS ORDERED: ACETAMINOPHEN 500 MG TABLET (FP) GT PRN (14:40)
[2018-10-07] MEDS: SODIUM CHLORIDE 1,000 ML IV SCH (17:13)
[2018-10-07] MEDS: TOPIRAMATE 400 MG GT SCH (21:46)
[2018-10-07] MEDS ORDERED: CARBAMAZEPINE 400 MG GT SCH (22:00)
[2018-10-07] MEDS ORDERED: TOPIRAMATE 400 MG GT SCH (22:00)
[2018-10-07] MEDS: FLUTICASONE PROP 0.05% 16 GM NASAL SPRAY NS SCH (22:40)
[2018-10-08] MEDS ORDERED: DEXTROSE 5%-WATER - 50 ML IVPB ONE ×3 (01:24→18:20)
[2018-10-08] MEDS ORDERED: AZTREONAM 1 GM VIAL (RESTRICTED TO ID) ONE ×3 (01:24→18:20)
[2018-10-08] MEDS: AZTREONAM 1 GM in DEXTROSE 5%-WATER - 50 ML IVPB SCH ×3 (01:45→18:22)
[2018-10-08] MEDS: carBAMazepine 200 MG/10 ML UNIT-DOSE CUP GT SCH ×3 (06:35→22:17)
[2018-10-08] MEDS: SILVER SULFADIAZINE 1% TOP CREAM 50 GM JAR TP SCH ×3 (06:35→22:09)
[2018-10-08] MEDS: ZONISAMIDE 100 MG/10 ML ORAL SUSPENSION GT SCH ×4 (06:35→22:13)
[2018-10-08] MEDS: IPRATROPIUM BR 0.02% 0.5 MG/2.5 ML VIAL.NEB. NEB SCH ×4 (07:35→20:26)
[2018-10-08 07:47] LABS: ALBUMIN 2.7 g/dl (3.4-5.0); ALK PHOS 90 U/L (45-117); ANION GAP 5 MMOL/L (8-16); BILIRUBIN,TOTAL 0.2 mg/dL (0.2-1); BLOOD UREA NITROGEN 8 mg/dL (7-18); CALCIUM 7.6 mg/dL (8.5-10.1); CHLORIDE 105 mmol/L (98-107); CO2 27 mmol/L (21-32); CREATININE 0.3 mg/dL (0.55-1.3); GLUCOSE,RANDOM 95 mg/dL (74-106); POTASSIUM 3.8 mmol/L (3.5-5.1); SGOT/AST 52 U/L (15-37); SGPT/ALT 66 U/L (13-61); SODIUM 137 mmol/L (136-145); TOT PROT 5.9 g/dl (6.4-8.2)
[2018-10-08 08:08] LABS: BASO % 0.4 % (0-2.0); EOS % 0.1 % (0-4.5); HEMATOCRIT 33.3 % (35.4-49); HEMOGLOBIN 11.3 GM/dL (11.7-16.9); LYMPH % 31.2 % (8-40); MCH 33.4 pg (25.7-33.7); MEAN CELL VOLUME 98.3 fl (80-96); MONO % 6.5 % (3.8-10.2); NEUT % 61.8 % (42.8-82.8); PLATELET COUNT 149 K/MM3 (134-434); RBC 3.39 M/mm3 (4.00-5.60); WHITE BLOOD COUNT 3.6 K/mm3 (4.0-10.0)
--- NOTE | 2018-10-08 08:41 | PN ---
Progress Note, Physician History of Present Illness: patient looks much better than yesterday more awake and alert looks calm - Current Medication List Current Medications: Active Medications Acetaminophen (Tylenol -) 500 mg GT Q6H PRN PRN Reason: FEVER Last Admin: 10/07/18 14:51 Dose: 500 mg Carbamazepine (Tegretol Oral Suspension -) 300 mg GT DAILY@1400 [facility] Last Admin: 10/07/18 14:18 Dose: 300 mg Carbamazepine (Tegretol Oral Suspension -) 400 mg GT BID@0700,2200 [facility] Last Admin: 10/08/18 06:35 Dose: 400 mg Clobazam (Onfi -) 5 mg GT DAILY [facility] Last Admin: 10/07/18 09:43 Dose: 5 mg Clobazam (Onfi -) 10 mg GT HS [facility] Last Admin: 10/07/18 21:49 Dose: 10 mg Enoxaparin Sodium (Lovenox -) 40 mg SQ DAILY [facility] Last Admin: 10/07/18 09:43 Dose: 40 mg Epinephrine (Epipen 0.3mg -) 0.3 mg IM PRN PRN PRN Reason: IN EMERGENCY Fluticasone Propionate (Flonase -) 2 spray NS HS [facility] Last Admin: 10/07/18 22:40 Dose: 2 sprays Aztreonam 1 gm/ Dextrose 50 mls @ 100 mls/hr IVPB Q8H-IV [facility]; Protocol Last Admin: 10/08/18 01:45 Dose: 100 mls/hr Vancomycin HCl 1,250 mg/ (Dextrose) 250 mls @ 166.667 mls/hr IVPB Q24H [facility]; Protocol Last Admin: 10/07/18 14:18 Dose: 166.667 mls/hr Sodium Chloride (Normal Saline -) 1,000 mls @ 75 mls/hr IV ASDIR [facility] Last Admin: 10/07/18 17:13 Dose: 75 mls/hr Ipratropium [place] (Atrovent 0.02% Nebulizer -) 1 amp NEB RQID [facility] Last Admin: 10/07/18 20:30 Dose: 1 amp Lorazepam (Ativan -) 1 mg GT Q4H PRN PRN Reason: seizure Methylprednisolone Sodium Succinate (Solu-Medrol -) 40 mg IVPUSH DAILY [facility] Stop: 10/11/18 10:01 Last Admin: 10/07/18 12:48 Dose: 40 mg Mineral Oil (Fleet Mineral Oil Rectal Enema -) 133 ml [place] ONCE PRN PRN Reason: BOWEL MOVEMENTS Patient's Own Med( Rufinamide [Banzel] 1,600 Mg) 1,600 mg GT BID [facility] Last Admin: 10/07/18 21:50 Dose: 1,600 mg Patient's Own Med ( Topiramate [Qudexy Xr] 400 Mg) 400 mg GT HS [facility] Last Admin: 10/07/18 21:46 Dose: 400 mg Scopolamine HBr (Transderm-Scop -) 1 patch TD Q3D@1000 [facility] Last Admin: 10/07/18 12:48 Dose: 1 patch Silver Sulfadiazine (Silvadene -) 1 applic TP TID [facility] Last Admin: 10/08/18 06:35 Dose: 1 applic Topiramate 200 mg/ Topiramate (100 mg) 300 mg GT DAILY [facility] Zonisamide (Zonisamide) 50 mg GT [facility] Last Admin: 10/07/18 22:39 Dose: 50 mg Zonisamide (Zonisamide) 200 mg GT TID [facility] Last Admin: 10/08/18 06:35 Dose: 200 mg - Objective Vital Signs: Vital Signs Temperature 98.6 F 10/08/18 06:11 Pulse Rate 80 10/08/18 06:11 Respiratory Rate 20 10/08/18 06:11 Blood Pressure 97/60 10/08/18 06:11 O2 Sat by Pulse Oximetry (%) 96 10/07/18 22:00 Constitutional: Yes: No Distress, Calm Cardiovascular: Yes: Regular Rate and Rhythm Respiratory: Yes: Regular, Poor Air Entry (bases) Gastrointestinal: Yes: Normal Bowel Sounds, Soft Musculoskeletal: Yes: WNL Neurological: Yes: Alert, Other (mr) Labs: CBC, BMP 10/08/18 07:00 INR, PTT INR 1.30 (0.83-1.09) H 10/06/18 21:30 Assessment/Plan Problem List - Problems (1) Fever Code(s): R50.9 - FEVER, UNSPECIFIED (2) Aspiration pneumonia Code(s): J69.0 - PNEUMONITIS DUE TO INHALATION OF FOOD AND VOMIT (3) Atelectasis of left lung Code(s): J98.11 - ATELECTASIS (4) Gastrostomy tube dependent Code(s): Z93.1 - GASTROSTOMY STATUS (5) Pneumonia Code(s): J18.9 - PNEUMONIA, UNSPECIFIED ORGANISM (6) Allergy to multiple antibiotics Code(s): Z88.1 - ALLERGY STATUS TO OTHER ANTIBIOTIC AGENTS STATUS (7) Cerebral palsy Code(s): G80.9 - CEREBRAL PALSY, UNSPECIFIED Qualifiers: 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(s): G80.0 - Spastic quadriplegic cerebral palsy (8) Functional quadriplegia Code(s): R53.2 - FUNCTIONAL QUADRIPLEGIA (9) Scoliosis Code(s): M41.9 - SCOLIOSIS, UNSPECIFIED Qualifiers: Scoliosis type: unspecified scoliosis Spinal region: thoracolumbar Qualified Code(s): M41.9 - Scoliosis, unspecified (10) Seizure Code(s): R56.9 - UNSPECIFIED CONVULSIONS (11) PNA (pneumonia) Code(s): J18.9 - PNEUMONIA, UNSPECIFIED ORGANISM Qualifiers: Pneumonia type: due to unspecified organism Laterality: unspecified laterality Lung location: unspecified part of lung Qualified Code(s): J18.9 - Pneumonia, unspecified organism plan continue current abx await for sputum cx will deescalate vanco tomorrow nutrition rest as per the team
--- NOTE | 2018-10-08 09:00 | PN ---
Teaching Attending Note Name of Resident: Sue Giraldo ATTENDING PHYSICIAN STATEMENT I saw and evaluated the patient. I reviewed the resident's note and discussed the case with the resident. I agree with the resident's findings and plan as documented. SUBJECTIVE:offers no complaints coughing OBJECTIVE: Vital Signs Temperature 98.6 F 10/08/18 06:11 Pulse Rate 80 10/08/18 06:11 Respiratory Rate 20 10/08/18 06:11 Blood Pressure 97/60 10/08/18 06:11 O2 Sat by Pulse Oximetry (%) 96 10/07/18 22:00 Young man non verbal in mild distress HEENT: Mm moist, no anemia NECK: no JVD No Bruit CHEST: conduced sounds and crepts CVS; s1S2 R ABD: PEG at place stom ain abd binder EXT: Deformity due to CP RHIA: Non verbal alert sever spstacity due to CP LABS: CBC, BMP 10/08/18 07:48 10/08/18 07:00 Active Medications Acetaminophen (Tylenol -) 500 mg GT Q6H PRN PRN Reason: FEVER Last Admin: 10/07/18 14:51 Dose: 500 mg Carbamazepine (Tegretol Oral Suspension -) 300 mg GT DAILY@1400 [facility] Last Admin: 10/07/18 14:18 Dose: 300 mg Carbamazepine (Tegretol Oral Suspension -) 400 mg GT BID@0700,2200 [facility] Last Admin: 10/08/18 06:35 Dose: 400 mg Clobazam (Onfi -) 5 mg GT DAILY [facility] Last Admin: 10/07/18 09:43 Dose: 5 mg Clobazam (Onfi -) 10 mg GT HS [facility] Last Admin: 10/07/18 21:49 Dose: 10 mg Enoxaparin Sodium (Lovenox -) 40 mg SQ DAILY [facility] Last Admin: 10/07/18 09:43 Dose: 40 mg Epinephrine (Epipen 0.3mg -) 0.3 mg IM PRN PRN PRN Reason: IN EMERGENCY Fluticasone Propionate (Flonase -) 2 spray NS HS [facility] Last Admin: 10/07/18 22:40 Dose: 2 sprays Aztreonam 1 gm/ Dextrose 50 mls @ 100 mls/hr IVPB Q8H-IV [facility]; Protocol Last Admin: 10/08/18 01:45 Dose: 100 mls/hr Vancomycin HCl 1,250 mg/ (Dextrose) 250 mls @ 166.667 mls/hr IVPB Q24H [facility]; Protocol Last Admin: 10/07/18 14:18 Dose: 166.667 mls/hr Sodium Chloride (Normal Saline -) 1,000 mls @ 75 mls/hr IV ASDIR [facility] Last Admin: 10/07/18 17:13 Dose: 75 mls/hr Ipratropium [place] (Atrovent 0.02% Nebulizer -) 1 amp NEB RQID [facility] Last Admin: 10/07/18 20:30 Dose: 1 amp Lorazepam (Ativan -) 1 mg GT Q4H PRN PRN Reason: seizure Methylprednisolone Sodium Succinate (Solu-Medrol -) 40 mg IVPUSH DAILY [facility] Stop: 10/11/18 10:01 Last Admin: 10/07/18 12:48 Dose: 40 mg Mineral Oil (Fleet Mineral Oil Rectal Enema -) 133 ml [place] ONCE PRN PRN Reason: BOWEL MOVEMENTS Patient's Own Med( Rufinamide [Banzel] 1,600 Mg) 1,600 mg GT BID [facility] Last Admin: 10/07/18 21:50 Dose: 1,600 mg Patient's Own Med ( Topiramate [Qudexy Xr] 400 Mg) 400 mg GT HS [facility] Last Admin: 10/07/18 21:46 Dose: 400 mg Scopolamine HBr (Transderm-Scop -) 1 patch TD Q3D@1000 [facility] Last Admin: 10/07/18 12:48 Dose: 1 patch Silver Sulfadiazine (Silvadene -) 1 applic TP TID [facility] Last Admin: 10/08/18 06:35 Dose: 1 applic Topiramate 200 mg/ Topiramate (100 mg) 300 mg GT DAILY [facility] Zonisamide (Zonisamide) 50 mg GT HS [facility] Last Admin: 10/07/18 22:39 Dose: 50 mg Zonisamide (Zonisamide) 200 mg GT TID [facility] Last Admin: 10/08/18 06:35 Dose: 200 mg ASSESSMENT AND PLAN:28 y/o M from [facility] w/ PMHx CP, epilepsy, recurrent aspiration PNA, recurrent UTI, scoliosis s/p spinal Sx/hardware, s/p PEG placement, BIBEMS for reported fever at nursing home Problem List - Problems (1) Aspiration pneumonia Assessment/Plan: cont current abx till we get sputum culture, frequent suctions and chest PT Code(s): J69.0 - PNEUMONITIS DUE TO INHALATION OF FOOD AND VOMIT (2) Functional quadriplegia Assessment/Plan: chronic Code(s): R53.2 - FUNCTIONAL QUADRIPLEGIA (3) Gastrostomy tube dependent Assessment/Plan: cont feeding observe residual Code(s): Z93.1 - GASTROSTOMY STATUS (4) Seizure Assessment/Plan: cont all home meds Code(s): R56.9 - UNSPECIFIED CONVULSIONS
[2018-10-08] MEDS: SODIUM CHLORIDE 1,000 ML IV SCH ×2 (09:43→18:23)
[2018-10-08] MEDS: cloBAZam 10 MG TABLET GT SCH ×2 (09:47→22:08)
[2018-10-08] MEDS: methylPREDNISolone NA SUCC 40 MG/1 ML VIAL IVPUSH SCH (09:49)
[2018-10-08] MEDS: ENOXAPARIN NA (PORCINE) 40 MG/0.4 ML DISP.SYRIN SQ SCH (09:49)
[2018-10-08] MEDS: TOPIRAMATE 200 MG, TOPIRAMATE 100 MG GT SCH (09:51)
[2018-10-08] MEDS: RUFINAMIDE GT SCH ×2 (09:52→22:09)
--- NOTE | 2018-10-08 12:33 | PN ---
Progress Note (short form) - Note Progress Note: PULMONARY Awake, nonverbal. Fever curve trending down. Vital Signs Period Temp Pulse Resp BP Sys/Grossman Pulse Ox Last 24 Hr 97.9 F-101.8 F 75-105 19-20 96-116/60-73 95-96 Gen: NAD at rest Heart: RRR Lung: scattered rhonchi Abd: soft, nontender Ext: no edema CBC, BMP 10/08/18 07:48 10/08/18 07:00 Active Medications Acetaminophen (Tylenol -) 500 mg GT Q6H PRN PRN Reason: FEVER Last Admin: 10/07/18 14:51 Dose: 500 mg Carbamazepine (Tegretol Oral Suspension -) 300 mg GT DAILY@1400 [facility] Last Admin: 10/07/18 14:18 Dose: 300 mg Carbamazepine (Tegretol Oral Suspension -) 400 mg GT BID@0700,2200 [facility] Last Admin: 10/08/18 06:35 Dose: 400 mg Clobazam (Onfi -) 5 mg GT DAILY [facility] Last Admin: 10/08/18 09:47 Dose: 5 mg Clobazam (Onfi -) 10 mg GT HS [facility] Last Admin: 10/07/18 21:49 Dose: 10 mg Enoxaparin Sodium (Lovenox -) 40 mg SQ DAILY [facility] Last Admin: 10/08/18 09:49 Dose: 40 mg Epinephrine (Epipen 0.3mg -) 0.3 mg IM PRN PRN PRN Reason: IN EMERGENCY Fluticasone Propionate (Flonase -) 2 spray NS HS [facility] Last Admin: 10/07/18 22:40 Dose: 2 sprays Aztreonam 1 gm/ Dextrose 50 mls @ 100 mls/hr IVPB Q8H-IV [facility]; Protocol Last Admin: 10/08/18 09:47 Dose: 100 mls/hr Vancomycin HCl 1,250 mg/ (Dextrose) 250 mls @ 166.667 mls/hr IVPB Q24H [facility]; Protocol Last Admin: 10/07/18 14:18 Dose: 166.667 mls/hr Sodium Chloride (Normal Saline -) 1,000 mls @ 75 mls/hr IV ASDIR [facility] Last Admin: 10/08/18 09:43 Dose: 75 mls/hr Ipratropium [place] (Atrovent 0.02% Nebulizer -) 1 amp NEB RQID [facility] Last Admin: 10/07/18 20:30 Dose: 1 amp Lorazepam (Ativan -) 1 mg GT Q4H PRN PRN Reason: seizure Methylprednisolone Sodium Succinate (Solu-Medrol -) 40 mg IVPUSH DAILY [facility] Stop: 10/11/18 10:01 Last Admin: 10/08/18 09:49 Dose: 40 mg Mineral Oil (Fleet Mineral Oil Rectal Enema -) 133 ml [place] ONCE PRN PRN Reason: BOWEL MOVEMENTS Patient's Own Med( Rufinamide [Banzel] 1,600 Mg) 1,600 mg GT BID [facility] Last Admin: 10/08/18 09:52 Dose: 1,600 mg Patient's Own Med ( Topiramate [Qudexy Xr] 400 Mg) 400 mg GT HS [facility] Last Admin: 10/07/18 21:46 Dose: 400 mg Scopolamine HBr (Transderm-Scop -) 1 patch TD Q3D@1000 [facility] Last Admin: 10/07/18 12:48 Dose: 1 patch Silver Sulfadiazine (Silvadene -) 1 applic TP TID [facility] Last Admin: 10/08/18 06:35 Dose: 1 applic Topiramate 200 mg/ Topiramate (100 mg) 300 mg GT DAILY [facility] Last Admin: 10/08/18 09:51 Dose: 300 mg Zonisamide (Zonisamide) 50 mg GT HS [facility] Last Admin: 10/07/18 22:39 Dose: 50 mg Zonisamide (Zonisamide) 200 mg GT TID [facility] Last Admin: 10/08/18 06:35 Dose: 200 mg A/P Pneumonia likely Aspiration Sepsis Cerebral Palsy Seizure Disorder Scoliosis - continue antibiotics - inhaled bronchodilators - O2 to keep SpO2 >90% - aspiration precautions - antiepileptics - DVT prophylaxis
[2018-10-08] MEDS: VANCOMYCIN HCL 1,250 MG in DEXTROSE 5%-WATER - 250 ML IVPB SCH (13:26)
[2018-10-08] MEDS ORDERED: PT OWN MED DRAWER 7, Y5N ONE ×2 (14:29→22:16)
--- NOTE | 2018-10-08 18:39 | PN ---
Physical Exam: SUBJECTIVE: Patient seen and examined. No overnight events. OBJECTIVE: Vital Signs Period Temp Pulse Resp BP Sys/Grossman Pulse Ox Last 24 Hr 97.9 F-99.1 F 75-105 19-20 96-139/59-73 95-96 GENERAL: The patient is lying in bed, in no acute distress. HEAD: Normal with no signs of trauma. EYES: PERRL, sclera anicteric, conjunctiva clear. ENT: Moist mucous membranes. NECK: Trachea midline, supple. LUNGS: Breath sounds equal, rhonchi bilaterally, no wheezes HEART: Regular rate and rhythm, S1, S2 without murmur, rub or gallop. ABDOMEN: Soft, nontender, nondistended, normoactive bowel sounds, peg. EXTREMITIES: 2+ pulses, warm, no edema, contractured, muscle atrophy in extremities. NEUROLOGICAL: Motor and sensation not assessed, nonverbal. PSYCH: awake SKIN: Warm, dry Laboratory Results - last 24 hr 10/07/18 10/08/18 10/08/18 22:12 05:43 07:00 WBC RBC Hgb Hct MCV MCH MCHC RDW Plt Count MPV Absolute Neuts (auto) Neutrophils % Lymphocytes % Monocytes % Eosinophils % Basophils % Nucleated RBC % Sodium 137 Potassium 3.8 Chloride 105 Carbon Dioxide 27 Anion Gap 5 L BUN 8 Creatinine 0.3 L Creat Clearance w eGFR 362.41 POC Glucometer 113 93 Random Glucose 95 Calcium 7.6 L Total Bilirubin 0.2 AST 52 H ALT 66 H Alkaline Phosphatase 90 Total Protein 5.9 L Albumin 2.7 L 10/08/18 07:48 WBC 3.6 L RBC 3.39 L Hgb 11.3 L Hct 33.3 L MCV 98.3 H MCH 33.4 MCHC 34.0 RDW 13.0 Plt Count 149 MPV 7.0 L Absolute Neuts (auto) 2.2 Neutrophils % 61.8 Lymphocytes % 31.2 D Monocytes % 6.5 Eosinophils % 0.1 Basophils % 0.4 Nucleated RBC % 0 Sodium Potassium Chloride Carbon Dioxide Anion Gap BUN Creatinine Creat Clearance w eGFR POC Glucometer Random Glucose Calcium Total Bilirubin AST ALT Alkaline Phosphatase Total Protein Albumin Active Medications Generic Name Dose Route Start Last Admin Trade Name Freq PRN Reason Stop Dose Admin Acetaminophen 500 mg 10/07/18 14:40 10/07/18 14:51 Tylenol - GT 500 mg Q6H PRN Administration FEVER Carbamazepine 300 mg 10/07/18 14:00 10/08/18 14:27 Tegretol Oral Suspension - GT 300 mg DAILY@1400 [facility]AD Administration Carbamazepine 400 mg 10/07/18 07:00 10/08/18 06:35 Tegretol Oral Suspension - GT 400 mg BID@0700,2200 [facility] Administration Clobazam 5 mg 10/07/18 10:00 10/08/18 09:47 Onfi - GT 5 mg DAILY [facility]AD Administration Clobazam 10 mg 10/07/18 22:00 10/07/18 21:49 Onfi - GT 10 mg HS [facility]AD Administration Enoxaparin Sodium 40 mg 10/07/18 10:00 10/08/18 09:49 Lovenox - SQ 40 mg DAILY [facility]AD Administration Epinephrine 0.3 mg 10/07/18 12:00 Epipen 0.3mg - IM PRN PRN IN EMERGENCY Fluticasone Propionate 2 spray 10/07/18 22:00 10/07/18 22:40 Flonase - NS 2 sprays HS BRAD Administration Aztreonam 1 gm/ Dextrose 50 mls @ 100 mls/hr 10/07/18 13:15 10/08/18 18:22 IVPB 100 mls/hr Q8H-IV [facility]AD Administration Protocol Vancomycin HCl 1,250 mg/ 250 mls @ 166.667 mls/hr 10/07/18 13:15 10/08/18 13: 26 Dextrose IVPB 166.667 mls/hr Q24H [facility]AD Administration Protocol Sodium Chloride 1,000 mls @ 75 mls/hr 10/07/18 17:15 10/08/18 18:23 Normal Saline - IV Not Given ASDIR BRAD Ipratropium [place] 1 amp 10/07/18 12:00 10/08/18 11:40 Atrovent 0.02% Nebulizer - NEB 1 amp RQID [facility]AD Administration Lorazepam 1 mg 10/06/18 23:51 Ativan - GT Q4H PRN seizure Methylprednisolone Sodium Succinate 40 mg 10/07/18 12:00 10/08/18 09:49 Solu-Medrol - IVPUSH 10/11/18 10:01 40 mg DAILY BRAD Administration Mineral Oil 133 ml 10/07/18 12:13 Fleet Mineral Oil Rectal Enema - MT ONCE PRN BOWEL MOVEMENTS Patient's Own Med( 1,600 mg 10/07/18 11:45 10/08/18 09:52 Rufinamide [Banzel] GT 1,600 mg 1,600 Mg) BID BRAD Administration Patient's Own Med ( 400 mg 10/07/18 22:00 10/07/18 21:46 Topiramate [Qudexy GT 400 mg Xr] 400 Mg) HS [facility]AD Administration Scopolamine HBr 1 patch 10/07/18 12:45 10/07/18 12:48 Transderm-Scop - TD 1 patch Q3D@1000 [facility] Administration Silver Sulfadiazine 1 applic 10/07/18 14:00 10/08/18 14:30 Silvadene - TP 1 applic TID [facility]AD Administration Topiramate 200 mg/ Topiramate 300 mg 10/08/18 10:00 10/08/18 09:51 100 mg GT 300 mg DAILY [facility] Administration Zonisamide 50 mg 10/07/18 22:00 10/07/18 22:39 Zonisamide GT 50 mg HS BRAD Administration Zonisamide 200 mg 10/07/18 09:00 10/08/18 14:38 Zonisamide GT 200 mg TID [facility]AD Administration ASSESSMENT/PLAN: 28 y/o M from [facility] PMHx of CP, epilepsy, recurrent aspiration PNA , recurrent UTI, scoliosis s/p spinal Sx/hardware, s/p PEG placement admitted for sepsis due to aspiration pneumonia: Sepsis due to aspiration pneumonia: -CT with consolidation in left upper lobe and atelectasis in LLL -will continue Aztreonam, Vancomycin and Prednisone 40 mg daily, continue d5ns at 75 cc/hr -legionella urine negative -repositioning -frequent suctioning and chest PT BID -sputum culture, blood cx pending -will f/u ID and Pulmonary recommendations -cont Atrovent -NPO on admission, resumed Osmolite 1.2 h/o of seizures: -witnessed tonic-clonic activity in ED, likely due to ongoing infection -h/o epilepsy requiring multiple AEDs, confirmed with Mcdonald documentation -feeds on hold -seizure precautions -maintaining saturation on RA transaminitis: -will monitor, likely due to acute process -no imaging now wound in the back: apply cream, repositioning DVT PPX: -Lovenox sq for DVT PPx full code Disposition: med/surg Problem List - Problems (1) Fever Code(s): R50.9 - FEVER, UNSPECIFIED (2) Aspiration pneumonia Code(s): J69.0 - PNEUMONITIS DUE TO INHALATION OF FOOD AND VOMIT (3) Atelectasis of left lung Code(s): J98.11 - ATELECTASIS (4) Cerebral palsy Code(s): G80.9 - CEREBRAL PALSY, UNSPECIFIED Qualifiers: 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(s): G80.0 - Spastic quadriplegic cerebral palsy (5) Sepsis Code(s): A41.9 - SEPSIS, UNSPECIFIED ORGANISM Qualifiers: Sepsis type: sepsis due to unspecified organism Qualified Code(s): A41.9 - Sepsis, unspecified organism Visit type - Emergency Visit Emergency Visit: Yes ED Registration Date: 10/06/18 Care time: The patient presented to the Emergency Department on the above date and was hospitalized for further evaluation of their emergent condition. - New Patient This patient is new to me today: No - Critical Care Critical Care patient: No - Discharge Referral Referred to [facility] No
[2018-10-08] MEDS: FLUTICASONE PROP 0.05% 16 GM NASAL SPRAY NS SCH (22:08)
[2018-10-08] MEDS: TOPIRAMATE 400 MG GT SCH (22:10)
[2018-10-09] MEDS ORDERED: DEXTROSE 5%-WATER - 50 ML IVPB ONE ×3 (01:26→17:21)
[2018-10-09] MEDS ORDERED: AZTREONAM 1 GM VIAL (RESTRICTED TO ID) ONE ×3 (01:26→17:21)
[2018-10-09] MEDS: AZTREONAM 1 GM in DEXTROSE 5%-WATER - 50 ML IVPB SCH ×3 (01:53→17:30)
[2018-10-09] MEDS: SODIUM CHLORIDE 1,000 ML IV SCH ×2 (01:55→14:57)
[2018-10-09] MEDS ORDERED: PT OWN MED DRAWER 7, Y5N ONE ×3 (05:59→13:56)
[2018-10-09] MEDS: SILVER SULFADIAZINE 1% TOP CREAM 50 GM JAR TP SCH ×3 (06:11→21:26)
[2018-10-09] MEDS: ZONISAMIDE 100 MG/10 ML ORAL SUSPENSION GT SCH ×4 (06:11→21:29)
[2018-10-09] MEDS: carBAMazepine 200 MG/10 ML UNIT-DOSE CUP GT SCH ×3 (06:12→21:27)
[2018-10-09] MEDS: IPRATROPIUM BR 0.02% 0.5 MG/2.5 ML VIAL.NEB. NEB SCH ×4 (07:25→19:53)
[2018-10-09 07:50] LABS: BASO % 0.5 % (0-2.0); HEMATOCRIT 33.8 % (35.4-49); HEMOGLOBIN 11.4 GM/dL (11.7-16.9); LYMPH % 40.2 % (8-40); MCHC 33.7 g/dl (32.0-35.9); MEAN CELL VOLUME 98.1 fl (80-96); MEAN PLT VOLUME 7.1 fl (7.5-11.1); MONO % 7.8 % (3.8-10.2); NEUT % 51.5 % (42.8-82.8); PLATELET COUNT 160 K/MM3 (134-434); RBC 3.45 M/mm3 (4.00-5.60); RDW 13.2 % (11.9-15.9); WHITE BLOOD COUNT 4.1 K/mm3 (4.0-10.0)
[2018-10-09 08:10] LABS: ALBUMIN 2.7 g/dl (3.4-5.0); ALK PHOS 87 U/L (45-117); ANION GAP 5 MMOL/L (8-16); BILIRUBIN,TOTAL 0.3 mg/dL (0.2-1); BLOOD UREA NITROGEN 5 mg/dL (7-18); CALCIUM 7.7 mg/dL (8.5-10.1); CHLORIDE 108 mmol/L (98-107); CO2 25 mmol/L (21-32); CREATININE 0.3 mg/dL (0.55-1.3); GLUCOSE,RANDOM 89 mg/dL (74-106); POTASSIUM 3.4 mmol/L (3.5-5.1); SGOT/AST 35 U/L (15-37); SGPT/ALT 55 U/L (13-61); SODIUM 138 mmol/L (136-145)
[2018-10-09] MEDS: methylPREDNISolone NA SUCC 40 MG/1 ML VIAL IVPUSH SCH (09:46)
[2018-10-09] MEDS: ENOXAPARIN NA (PORCINE) 40 MG/0.4 ML DISP.SYRIN SQ SCH (09:47)
[2018-10-09] MEDS: cloBAZam 10 MG TABLET GT SCH ×2 (09:47→21:26)
[2018-10-09] MEDS: TOPIRAMATE 200 MG, TOPIRAMATE 100 MG GT SCH (09:48)
[2018-10-09] MEDS: RUFINAMIDE GT SCH ×2 (09:50→21:26)
--- NOTE | 2018-10-09 10:04 | PN ---
Progress Note, Physician - Current Medication List Current Medications: Active Medications Acetaminophen (Tylenol -) 500 mg GT Q6H PRN PRN Reason: FEVER Last Admin: 10/07/18 14:51 Dose: 500 mg Carbamazepine (Tegretol Oral Suspension -) 300 mg GT DAILY@1400 [facility] Last Admin: 10/08/18 14:27 Dose: 300 mg Carbamazepine (Tegretol Oral Suspension -) 400 mg GT BID@0700,2200 [facility] Last Admin: 10/09/18 06:12 Dose: 400 mg Clobazam (Onfi -) 5 mg GT DAILY [facility] Last Admin: 10/09/18 09:47 Dose: 5 mg Clobazam (Onfi -) 10 mg GT HS [facility] Last Admin: 10/08/18 22:08 Dose: 10 mg Enoxaparin Sodium (Lovenox -) 40 mg SQ DAILY [facility] Last Admin: 10/09/18 09:47 Dose: 40 mg Epinephrine (Epipen 0.3mg -) 0.3 mg IM PRN PRN PRN Reason: IN EMERGENCY Fluticasone Propionate (Flonase -) 2 spray NS HS [facility] Last Admin: 10/08/18 22:08 Dose: 2 sprays Aztreonam 1 gm/ Dextrose 50 mls @ 100 mls/hr IVPB Q8H-IV BRAD; Protocol Last Admin: 10/09/18 09:45 Dose: 100 mls/hr Vancomycin HCl 1,250 mg/ (Dextrose) 250 mls @ 166.667 mls/hr IVPB Q24H [facility]; Protocol Last Admin: 10/08/18 13:26 Dose: 166.667 mls/hr Sodium Chloride (Normal Saline -) 1,000 mls @ 75 mls/hr IV ASDIR [facility] Last Admin: 10/09/18 01:55 Dose: 75 mls/hr Ipratropium [place] (Atrovent 0.02% Nebulizer -) 1 amp NEB RQID [facility] Last Admin: 10/09/18 07:25 Dose: 1 amp Lorazepam (Ativan -) 1 mg GT Q4H PRN PRN Reason: seizure Methylprednisolone Sodium Succinate (Solu-Medrol -) 40 mg IVPUSH DAILY [facility] Stop: 10/11/18 10:01 Last Admin: 10/09/18 09:46 Dose: 40 mg Mineral Oil (Fleet Mineral Oil Rectal Enema -) 133 ml NE ONCE PRN PRN Reason: BOWEL MOVEMENTS Patient's Own Med( Rufinamide [Banzel] 1,600 Mg) 1,600 mg GT BID [facility] Last Admin: 10/09/18 09:50 Dose: 1,600 mg Patient's Own Med ( Topiramate [Qudexy Xr] 400 Mg) 400 mg GT [facility] Last Admin: 10/08/18 22:10 Dose: 400 mg Scopolamine HBr (Transderm-Scop -) 1 patch TD Q3D@1000 [facility] Last Admin: 10/07/18 12:48 Dose: 1 patch Silver Sulfadiazine (Silvadene -) 1 applic TP TID [facility] Last Admin: 10/09/18 06:11 Dose: 1 applic Topiramate 200 mg/ Topiramate (100 mg) 300 mg GT DAILY [facility] Last Admin: 10/09/18 09:48 Dose: 300 mg Zonisamide (Zonisamide) 50 mg GT [facility] Last Admin: 10/08/18 22:13 Dose: 50 mg Zonisamide (Zonisamide) 200 mg GT TID [facility] Last Admin: 10/09/18 06:11 Dose: 200 mg - Objective Vital Signs: Vital Signs Temperature 97.2 F L 10/09/18 08:43 Pulse Rate 100 H 10/09/18 08:43 Respiratory Rate 20 10/09/18 08:43 Blood Pressure 116/70 10/09/18 08:43 O2 Sat by Pulse Oximetry (%) 95 10/09/18 08:44 Young man non verbal in mild distress HEENT: Mm moist, no anemia NECK: no JVD No Bruit CHEST: conduced sounds and crepts CVS; s1S2 R ABD: PEG at place stom ain abd binder EXT: Deformity due to CP THERMOCOUPLE TESTER: Non verbal alert sever spstacity due to CP Labs: CBC, BMP 10/09/18 07:00 10/09/18 07:00 INR, PTT INR 1.30 (0.83-1.09) H 10/06/18 21:30 Problem List - Problems (1) Aspiration pneumonia Assessment/Plan: cont current abx till we get sputum culture, frequent suctions and chest PT Code(s): J69.0 - PNEUMONITIS DUE TO INHALATION OF FOOD AND VOMIT (2) Functional quadriplegia Assessment/Plan: chronic Code(s): R53.2 - FUNCTIONAL QUADRIPLEGIA (3) Gastrostomy tube dependent Assessment/Plan: cont feeding observe residual (4) Seizure Assessment/Plan: cont all home meds Code(s): R56.9 - UNSPECIFIED CONVULSIONS
--- NOTE | 2018-10-09 10:55 | PN ---
Progress Note, Physician History of Present Illness: patient improving looks more comfortable - Current Medication List Current Medications: Active Medications Acetaminophen (Tylenol -) 500 mg GT Q6H PRN PRN Reason: FEVER Last Admin: 10/07/18 14:51 Dose: 500 mg Carbamazepine (Tegretol Oral Suspension -) 300 mg GT DAILY@1400 [facility] Last Admin: 10/08/18 14:27 Dose: 300 mg Carbamazepine (Tegretol Oral Suspension -) 400 mg GT BID@0700,2200 [facility] Last Admin: 10/09/18 06:12 Dose: 400 mg Clobazam (Onfi -) 5 mg GT DAILY [facility] Last Admin: 10/09/18 09:47 Dose: 5 mg Clobazam (Onfi -) 10 mg GT HS [facility] Last Admin: 10/08/18 22:08 Dose: 10 mg Enoxaparin Sodium (Lovenox -) 40 mg SQ DAILY [facility] Last Admin: 10/09/18 09:47 Dose: 40 mg Epinephrine (Epipen 0.3mg -) 0.3 mg IM PRN PRN PRN Reason: IN EMERGENCY Fluticasone Propionate (Flonase -) 2 spray NS HS [facility] Last Admin: 10/08/18 22:08 Dose: 2 sprays Aztreonam 1 gm/ Dextrose 50 mls @ 100 mls/hr IVPB Q8H-IV [facility]AD; Protocol Last Admin: 10/09/18 09:45 Dose: 100 mls/hr Vancomycin HCl 1,250 mg/ (Dextrose) 250 mls @ 166.667 mls/hr IVPB Q24H [facility]; Protocol Last Admin: 10/08/18 13:26 Dose: 166.667 mls/hr Sodium Chloride (Normal Saline -) 1,000 mls @ 75 mls/hr IV ASDIR [facility] Last Admin: 10/09/18 01:55 Dose: 75 mls/hr Ipratropium [place] (Atrovent 0.02% Nebulizer -) 1 amp NEB RQID [facility] Last Admin: 10/09/18 07:25 Dose: 1 amp Lorazepam (Ativan -) 1 mg GT Q4H PRN PRN Reason: seizure Methylprednisolone Sodium Succinate (Solu-Medrol -) 40 mg IVPUSH DAILY [facility] Stop: 10/11/18 10:01 Last Admin: 10/09/18 09:46 Dose: 40 mg Mineral Oil (Fleet Mineral Oil Rectal Enema -) 133 ml RI ONCE PRN PRN Reason: BOWEL MOVEMENTS Patient's Own Med( Rufinamide [Banzel] 1,600 Mg) 1,600 mg GT BID [facility] Last Admin: 10/09/18 09:50 Dose: 1,600 mg Patient's Own Med ( Topiramate [Qudexy Xr] 400 Mg) 400 mg GT HS [facility] Last Admin: 10/08/18 22:10 Dose: 400 mg Scopolamine HBr (Transderm-Scop -) 1 patch TD Q3D@1000 [facility] Last Admin: 10/07/18 12:48 Dose: 1 patch Silver Sulfadiazine (Silvadene -) 1 applic TP TID [facility] Last Admin: 10/09/18 06:11 Dose: 1 applic Topiramate 200 mg/ Topiramate (100 mg) 300 mg GT DAILY [facility] Last Admin: 10/09/18 09:48 Dose: 300 mg Zonisamide (Zonisamide) 50 mg GT [facility] Last Admin: 10/08/18 22:13 Dose: 50 mg Zonisamide (Zonisamide) 200 mg GT TID [facility] Last Admin: 10/09/18 06:11 Dose: 200 mg - Objective Vital Signs: Vital Signs Temperature 97.2 F L 10/09/18 08:43 Pulse Rate 100 H 10/09/18 08:43 Respiratory Rate 20 10/09/18 08:43 Blood Pressure 116/70 10/09/18 08:43 O2 Sat by Pulse Oximetry (%) 95 10/09/18 08:44 Constitutional: Yes: No Distress, Calm Cardiovascular: Yes: Regular Rate and Rhythm Respiratory: Yes: Regular, Poor Air Entry Gastrointestinal: Yes: Normal Bowel Sounds, Soft Musculoskeletal: Yes: WNL Extremities: Yes: WNL Neurological: Yes: Alert, Oriented Psychiatric: Yes: Alert, Oriented Labs: CBC, BMP 10/09/18 07:00 10/09/18 07:00 INR, PTT INR 1.30 (0.83-1.09) H 10/06/18 21:30 Assessment/Plan Problem List - Problems (1) Fever Code(s): R50.9 - FEVER, UNSPECIFIED (2) Aspiration pneumonia Code(s): J69.0 - PNEUMONITIS DUE TO INHALATION OF FOOD AND VOMIT (3) Atelectasis of left lung Code(s): J98.11 - ATELECTASIS (4) Gastrostomy tube dependent Code(s): Z93.1 - GASTROSTOMY STATUS (5) Pneumonia Code(s): J18.9 - PNEUMONIA, UNSPECIFIED ORGANISM (6) Allergy to multiple antibiotics Code(s): Z88.1 - ALLERGY STATUS TO OTHER ANTIBIOTIC AGENTS STATUS (7) Cerebral palsy Code(s): G80.9 - CEREBRAL PALSY, UNSPECIFIED Qualifiers: 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(s): G80.0 - Spastic quadriplegic cerebral palsy (8) Functional quadriplegia Code(s): R53.2 - FUNCTIONAL QUADRIPLEGIA (9) Scoliosis Code(s): M41.9 - SCOLIOSIS, UNSPECIFIED Qualifiers: Scoliosis type: unspecified scoliosis Spinal region: thoracolumbar Qualified Code(s): M41.9 - Scoliosis, unspecified (10) Seizure Code(s): R56.9 - UNSPECIFIED CONVULSIONS (11) PNA (pneumonia) Code(s): J18.9 - PNEUMONIA, UNSPECIFIED ORGANISM Qualifiers: Pneumonia type: due to unspecified organism Laterality: unspecified laterality Lung location: unspecified part of lung Qualified Code(s): J18.9 - Pneumonia, unspecified organism plan abx await for sputum cx will stop vanco rest as per the team
--- NOTE | 2018-10-09 11:06 | PN ---
Progress Note (short form) - Note Progress Note: Awake, nonverbal. NAD on RA. No acute events overnight. Intake & Output 10/06/18 10/07/18 10/08/18 10/09/18 23:59 23:59 23:59 23:59 Intake Total 1012 2380 875 Output Total 400 Balance 612 2380 875 Weight 116 lb 106 lb 106 lb Last Vital Signs Temp Pulse Resp BP Pulse Ox 97.2 F L 100 H 20 116/70 95 10/09/18 08:43 10/09/18 08:43 10/09/18 08:43 10/09/18 08:43 10/09/18 08:44 Active Medications Acetaminophen (Tylenol -) 500 mg GT Q6H PRN PRN Reason: FEVER Last Admin: 10/07/18 14:51 Dose: 500 mg Carbamazepine (Tegretol Oral Suspension -) 300 mg GT DAILY@1400 [facility] Last Admin: 10/08/18 14:27 Dose: 300 mg Carbamazepine (Tegretol Oral Suspension -) 400 mg GT BID@0700,2200 [facility] Last Admin: 10/09/18 06:12 Dose: 400 mg Clobazam (Onfi -) 5 mg GT DAILY [facility] Last Admin: 10/09/18 09:47 Dose: 5 mg Clobazam (Onfi -) 10 mg GT HS [facility] Last Admin: 10/08/18 22:08 Dose: 10 mg Enoxaparin Sodium (Lovenox -) 40 mg SQ DAILY [facility] Last Admin: 10/09/18 09:47 Dose: 40 mg Epinephrine (Epipen 0.3mg -) 0.3 mg IM PRN PRN PRN Reason: IN EMERGENCY Fluticasone Propionate (Flonase -) 2 spray NS HS [facility] Last Admin: 10/08/18 22:08 Dose: 2 sprays Aztreonam 1 gm/ Dextrose 50 mls @ 100 mls/hr IVPB Q8H-IV [facility]; Protocol Last Admin: 10/09/18 09:45 Dose: 100 mls/hr Sodium Chloride (Normal Saline -) 1,000 mls @ 75 mls/hr IV ASDIR [facility] Last Admin: 10/09/18 01:55 Dose: 75 mls/hr Ipratropium [place] (Atrovent 0.02% Nebulizer -) 1 amp NEB RQID [facility] Last Admin: 10/09/18 07:25 Dose: 1 amp Lorazepam (Ativan -) 1 mg GT Q4H PRN PRN Reason: seizure Methylprednisolone Sodium Succinate (Solu-Medrol -) 40 mg IVPUSH DAILY [facility] Stop: 10/11/18 10:01 Last Admin: 10/09/18 09:46 Dose: 40 mg Mineral Oil (Fleet Mineral Oil Rectal Enema -) 133 ml [place] ONCE PRN PRN Reason: BOWEL MOVEMENTS Patient's Own Med( Rufinamide [Banzel] 1,600 Mg) 1,600 mg GT BID [facility] Last Admin: 10/09/18 09:50 Dose: 1,600 mg Patient's Own Med ( Topiramate [Qudexy Xr] 400 Mg) 400 mg GT [facility] Last Admin: 10/08/18 22:10 Dose: 400 mg Scopolamine HBr (Transderm-Scop -) 1 patch TD Q3D@1000 [facility] Last Admin: 10/07/18 12:48 Dose: 1 patch Silver Sulfadiazine (Silvadene -) 1 applic TP TID [facility] Last Admin: 10/09/18 06:11 Dose: 1 applic Topiramate 200 mg/ Topiramate (100 mg) 300 mg GT DAILY [facility] Last Admin: 10/09/18 09:48 Dose: 300 mg Zonisamide (Zonisamide) 50 mg GT [facility] Last Admin: 10/08/18 22:13 Dose: 50 mg Zonisamide (Zonisamide) 200 mg GT TID [facility] Last Admin: 10/09/18 06:11 Dose: 200 mg Gen: NAD at rest Heart: RRR Lung: scattered rhonchi Abd: soft, nontender Ext: no edema Laboratory Results - last 24 hr 10/08/18 10/09/18 10/09/18 22:07 07:00 07:00 WBC 4.1 RBC 3.45 L Hgb 11.4 L Hct 33.8 L MCV 98.1 H MCH 33.0 MCHC 33.7 RDW 13.2 Plt Count 160 MPV 7.1 L Absolute Neuts (auto) 2.1 Neutrophils % 51.5 Lymphocytes % 40.2 H D Monocytes % 7.8 Eosinophils % 0.0 D Basophils % 0.5 Nucleated RBC % 0 Sodium 138 Potassium 3.4 L Chloride 108 H Carbon Dioxide 25 Anion Gap 5 L BUN 5 L Creatinine 0.3 L Creat Clearance w eGFR 362.41 POC Glucometer 112 Random Glucose 89 Calcium 7.7 L Total Bilirubin 0.3 AST 35 ALT 55 Alkaline Phosphatase 87 Total Protein 6.0 L Albumin 2.7 L A/P Pneumonia likely Aspiration Sepsis Cerebral Palsy Seizure Disorder Scoliosis - ABX per ID: can consider switch to PO therapy - inhaled bronchodilators - O2 to keep SpO2 >90% - aspiration precautions - antiepileptics - DVT prophylaxis Dr Davidson Problem List - Problems (1) Fever Code(s): R50.9 - FEVER, UNSPECIFIED (2) Aspiration pneumonia Code(s): J69.0 - PNEUMONITIS DUE TO INHALATION OF FOOD AND VOMIT (3) Atelectasis of left lung Code(s): J98.11 - ATELECTASIS (4) Gastrostomy tube dependent Code(s): Z93.1 - GASTROSTOMY STATUS (5) Pneumonia Code(s): J18.9 - PNEUMONIA, UNSPECIFIED ORGANISM (6) Allergy to multiple antibiotics Code(s): Z88.1 - ALLERGY STATUS TO OTHER ANTIBIOTIC AGENTS STATUS (7) Cerebral palsy Code(s): G80.9 - CEREBRAL PALSY, UNSPECIFIED Qualifiers: 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(s): G80.0 - Spastic quadriplegic cerebral palsy (8) Functional quadriplegia Code(s): R53.2 - FUNCTIONAL QUADRIPLEGIA (9) Scoliosis Code(s): M41.9 - SCOLIOSIS, UNSPECIFIED Qualifiers: Scoliosis type: unspecified scoliosis Spinal region: thoracolumbar Qualified Code(s): M41.9 - Scoliosis, unspecified (10) Seizure Code(s): R56.9 - UNSPECIFIED CONVULSIONS (11) PNA (pneumonia) Code(s): J18.9 - PNEUMONIA, UNSPECIFIED ORGANISM Qualifiers: Pneumonia type: due to unspecified organism Laterality: unspecified laterality Lung location: unspecified part of lung Qualified Code(s): J18.9 - Pneumonia, unspecified organism
[2018-10-09] MEDS: BACITRACIN 15 GM TUBE TOPICAL OINTMENT TP SCH (15:00)
[2018-10-09] MEDS: FLUTICASONE PROP 0.05% 16 GM NASAL SPRAY NS SCH (21:25)
[2018-10-09] MEDS: TOPIRAMATE 400 MG GT SCH (21:28)
[2018-10-10] MEDS ORDERED: DEXTROSE 5%-WATER - 50 ML IVPB ONE ×3 (02:41→17:15)
[2018-10-10] MEDS ORDERED: AZTREONAM 1 GM VIAL (RESTRICTED TO ID) ONE ×3 (02:41→17:15)
[2018-10-10] MEDS: AZTREONAM 1 GM in DEXTROSE 5%-WATER - 50 ML IVPB SCH ×3 (02:46→17:19)
[2018-10-10] MEDS ORDERED: PT OWN MED DRAWER 7, Y5N ONE ×2 (05:54→13:35)
[2018-10-10] MEDS: SODIUM CHLORIDE 1,000 ML IV SCH ×2 (06:04→18:14)
[2018-10-10] MEDS: ZONISAMIDE 100 MG/10 ML ORAL SUSPENSION GT SCH ×4 (06:05→22:38)
[2018-10-10] MEDS: SILVER SULFADIAZINE 1% TOP CREAM 50 GM JAR TP SCH ×3 (06:05→22:41)
[2018-10-10] MEDS: carBAMazepine 200 MG/10 ML UNIT-DOSE CUP GT SCH ×3 (06:06→22:39)
[2018-10-10] MEDS: IPRATROPIUM BR 0.02% 0.5 MG/2.5 ML VIAL.NEB. NEB SCH ×4 (07:37→20:20)
[2018-10-10 08:15] LABS: BASO % 0.4 % (0-2.0); EOS % 0.1 % (0-4.5); HEMATOCRIT 38.1 % (35.4-49); HEMOGLOBIN 12.5 GM/dL (11.7-16.9); LYMPH % 25.5 % (8-40); MCH 32.7 pg (25.7-33.7); MCHC 32.8 g/dl (32.0-35.9); MEAN CELL VOLUME 99.5 fl (80-96); MEAN PLT VOLUME 7.5 fl (7.5-11.1); MONO % 5.8 % (3.8-10.2); NEUT % 68.2 % (42.8-82.8); PLATELET COUNT 159 K/MM3 (134-434); RBC 3.83 M/mm3 (4.00-5.60); RDW 13.4 % (11.9-15.9); WHITE BLOOD COUNT 8.1 K/mm3 (4.0-10.0)
[2018-10-10 08:32] LABS: ANION GAP 6 MMOL/L (8-16); BLOOD UREA NITROGEN 6 mg/dL (7-18); CALCIUM 8.2 mg/dL (8.5-10.1); CHLORIDE 108 mmol/L (98-107); CO2 28 mmol/L (21-32); CREATININE 0.3 mg/dL (0.55-1.3); GLUCOSE,RANDOM 91 mg/dL (74-106); POTASSIUM 3.6 mmol/L (3.5-5.1); SODIUM 141 mmol/L (136-145)
[2018-10-10] MEDS: BACITRACIN 15 GM TUBE TOPICAL OINTMENT TP SCH (09:11)
[2018-10-10] MEDS: methylPREDNISolone NA SUCC 40 MG/1 ML VIAL IVPUSH SCH (09:12)
[2018-10-10] MEDS: ENOXAPARIN NA (PORCINE) 40 MG/0.4 ML DISP.SYRIN SQ SCH (09:15)
--- NOTE | 2018-10-10 09:15 | PN ---
Progress Note, Physician Chief Complaint: Less congestion and cough - Current Medication List Current Medications: Active Medications Acetaminophen (Tylenol -) 500 mg GT Q6H PRN PRN Reason: FEVER Last Admin: 10/07/18 14:51 Dose: 500 mg Bacitracin (Bacitracin -) 1 applic TP DAILY [facility] Last Admin: 10/09/18 15:00 Dose: 1 applic Carbamazepine (Tegretol Oral Suspension -) 300 mg GT DAILY@1400 [facility] Last Admin: 10/09/18 14:01 Dose: 300 mg Carbamazepine (Tegretol Oral Suspension -) 400 mg GT BID@0700,2200 [facility] Last Admin: 10/10/18 06:06 Dose: 400 mg Clobazam (Onfi -) 5 mg GT DAILY [facility] Last Admin: 10/09/18 09:47 Dose: 5 mg Clobazam (Onfi -) 10 mg GT HS [facility] Last Admin: 10/09/18 21:26 Dose: 10 mg Enoxaparin Sodium (Lovenox -) 40 mg SQ DAILY [facility] Last Admin: 10/09/18 09:47 Dose: 40 mg Epinephrine (Epipen 0.3mg -) 0.3 mg IM PRN PRN PRN Reason: IN EMERGENCY Fluticasone Propionate (Flonase -) 2 spray NS HS [facility] Last Admin: 10/09/18 21:25 Dose: 2 sprays Aztreonam 1 gm/ Dextrose 50 mls @ 100 mls/hr IVPB Q8H-IV [facility]; Protocol Last Admin: 10/10/18 02:46 Dose: 100 mls/hr Sodium Chloride (Normal Saline -) 1,000 mls @ 75 mls/hr IV ASDIR [facility] Last Admin: 10/10/18 06:04 Dose: 75 mls/hr Ipratropium [place] (Atrovent 0.02% Nebulizer -) 1 amp NEB RQID [facility] Last Admin: 10/10/18 07:37 Dose: 1 amp Methylprednisolone Sodium Succinate (Solu-Medrol -) 40 mg IVPUSH DAILY [facility] Stop: 10/11/18 10:01 Last Admin: 10/09/18 09:46 Dose: 40 mg Mineral Oil (Fleet Mineral Oil Rectal Enema -) 133 ml [place] ONCE PRN PRN Reason: BOWEL MOVEMENTS Patient's Own Med( Rufinamide [Banzel] 1,600 Mg) 1,600 mg GT BID [facility] Last Admin: 10/09/18 21:26 Dose: 1,600 mg Patient's Own Med ( Topiramate [Qudexy Xr] 400 Mg) 400 mg GT [facility] Last Admin: 10/09/18 21:28 Dose: 400 mg Scopolamine HBr (Transderm-Scop -) 1 patch TD Q3D@1000 [facility] Last Admin: 10/07/18 12:48 Dose: 1 patch Silver Sulfadiazine (Silvadene -) 1 applic TP TID [facility] Last Admin: 10/10/18 06:05 Dose: 1 applic Topiramate 200 mg/ Topiramate (100 mg) 300 mg GT DAILY [facility] Last Admin: 10/09/18 09:48 Dose: 300 mg Zonisamide (Zonisamide) 50 mg GT [facility] Last Admin: 10/09/18 21:28 Dose: 50 mg Zonisamide (Zonisamide) 200 mg GT TID [facility] Last Admin: 10/10/18 06:05 Dose: 200 mg - Objective Vital Signs: Vital Signs Temperature 98.8 F 10/10/18 05:39 Pulse Rate 96 H 10/09/18 17:00 Respiratory Rate 22 H 10/10/18 05:39 Blood Pressure 100/63 10/10/18 05:39 O2 Sat by Pulse Oximetry (%) 95 10/09/18 21:00 Young man non verbal in mild distress HEENT: Mm moist, no anemia NECK: no JVD No Bruit CHEST: conduced sounds and crepts CVS; s1S2 R ABD: PEG at place stom inflamed abd binder EXT: Deformity due to CP 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 10/06/18 21:30 Blood - Peripheral Venous Blood Culture - Preliminary NO GROWTH OBTAINED AFTER 72 HOURS, INCUBATION TO CONTINUE FOR 2 DAYS. 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
[2018-10-10] MEDS: cloBAZam 10 MG TABLET GT SCH ×2 (09:16→22:40)
[2018-10-10] MEDS: TOPIRAMATE 200 MG, TOPIRAMATE 100 MG GT SCH (09:17)
[2018-10-10] MEDS: RUFINAMIDE GT SCH ×2 (09:18→23:19)
[2018-10-10] MEDS: SCOPOLAMINE HYDROBROMIDE 1 PATCH PATCH.TD72 TD SCH (09:19)
[2018-10-10] MEDS ORDERED: SCOPOLAMINE HYDROBROMIDE 1 PATCH PATCH.TD72 TD SCH (10:00)
--- NOTE | 2018-10-10 11:29 | PN ---
Progress Note, Physician History of Present Illness: patient stable calm improving - Current Medication List Current Medications: Active Medications Acetaminophen (Tylenol -) 500 mg GT Q6H PRN PRN Reason: FEVER Last Admin: 10/07/18 14:51 Dose: 500 mg Bacitracin (Bacitracin -) 1 applic TP DAILY [facility] Last Admin: 10/10/18 09:11 Dose: 1 applic Carbamazepine (Tegretol Oral Suspension -) 300 mg GT DAILY@1400 [facility] Last Admin: 10/09/18 14:01 Dose: 300 mg Carbamazepine (Tegretol Oral Suspension -) 400 mg GT BID@0700,2200 [facility] Last Admin: 10/10/18 06:06 Dose: 400 mg Clobazam (Onfi -) 5 mg GT DAILY [facility] Last Admin: 10/10/18 09:16 Dose: 5 mg Clobazam (Onfi -) 10 mg GT HS [facility] Last Admin: 10/09/18 21:26 Dose: 10 mg Enoxaparin Sodium (Lovenox -) 40 mg SQ DAILY [facility] Last Admin: 10/10/18 09:15 Dose: 40 mg Epinephrine (Epipen 0.3mg -) 0.3 mg IM PRN PRN PRN Reason: IN EMERGENCY Fluticasone Propionate (Flonase -) 2 spray NS HS [facility] Last Admin: 10/09/18 21:25 Dose: 2 sprays Aztreonam 1 gm/ Dextrose 50 mls @ 100 mls/hr IVPB Q8H-IV [facility]; Protocol Last Admin: 10/10/18 09:12 Dose: 100 mls/hr Sodium Chloride (Normal Saline -) 1,000 mls @ 75 mls/hr IV ASDIR [facility] Last Admin: 10/10/18 06:04 Dose: 75 mls/hr Ipratropium [place] (Atrovent 0.02% Nebulizer -) 1 amp NEB RQID [facility] Last Admin: 10/10/18 07:37 Dose: 1 amp Methylprednisolone Sodium Succinate (Solu-Medrol -) 40 mg IVPUSH DAILY [facility] Stop: 10/11/18 10:01 Last Admin: 10/10/18 09:12 Dose: 40 mg Mineral Oil (Fleet Mineral Oil Rectal Enema -) 133 ml [place] ONCE PRN PRN Reason: BOWEL MOVEMENTS Patient's Own Med( Rufinamide [Banzel] 1,600 Mg) 1,600 mg GT BID [facility] Last Admin: 10/10/18 09:18 Dose: 1,600 mg Patient's Own Med ( Topiramate [Qudexy Xr] 400 Mg) 400 mg GT [facility] Last Admin: 10/09/18 21:28 Dose: 400 mg Scopolamine HBr (Transderm-Scop -) 1 patch TD Q3D@1000 [facility] Last Admin: 10/10/18 09:19 Dose: 1 patch Silver Sulfadiazine (Silvadene -) 1 applic TP TID [facility] Last Admin: 10/10/18 06:05 Dose: 1 applic Topiramate 200 mg/ Topiramate (100 mg) 300 mg GT DAILY [facility] Last Admin: 10/10/18 09:17 Dose: 300 mg Zonisamide (Zonisamide) 50 mg GT [facility] Last Admin: 10/09/18 21:28 Dose: 50 mg Zonisamide (Zonisamide) 200 mg GT TID [facility] Last Admin: 10/10/18 06:05 Dose: 200 mg - Objective Vital Signs: Vital Signs Temperature 98.8 F 10/10/18 05:39 Pulse Rate 96 H 10/09/18 17:00 Respiratory Rate 22 H 10/10/18 05:39 Blood Pressure 100/63 10/10/18 05:39 O2 Sat by Pulse Oximetry (%) 95 10/09/18 21:00 Constitutional: Yes: No Distress, Calm Cardiovascular: Yes: Regular Rate and Rhythm Respiratory: Yes: Regular, Poor Air Entry Gastrointestinal: Yes: Normal Bowel Sounds, Soft Musculoskeletal: Yes: WNL Extremities: Yes: WNL Neurological: Yes: Alert, Oriented Psychiatric: Yes: Alert, Oriented Labs: CBC, BMP 10/10/18 07:00 10/10/18 07:00 INR, PTT INR 1.30 (0.83-1.09) H 10/06/18 21:30 Assessment/Plan Problem List - Problems (1) Fever Code(s): R50.9 - FEVER, UNSPECIFIED (2) Aspiration pneumonia Code(s): J69.0 - PNEUMONITIS DUE TO INHALATION OF FOOD AND VOMIT (3) Atelectasis of left lung Code(s): J98.11 - ATELECTASIS (4) Gastrostomy tube dependent Code(s): Z93.1 - GASTROSTOMY STATUS (5) Pneumonia Code(s): J18.9 - PNEUMONIA, UNSPECIFIED ORGANISM (6) Allergy to multiple antibiotics Code(s): Z88.1 - ALLERGY STATUS TO OTHER ANTIBIOTIC AGENTS STATUS (7) Cerebral palsy Code(s): G80.9 - CEREBRAL PALSY, UNSPECIFIED Qualifiers: 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(s): G80.0 - Spastic quadriplegic cerebral palsy (8) Functional quadriplegia Code(s): R53.2 - FUNCTIONAL QUADRIPLEGIA (9) Scoliosis Code(s): M41.9 - SCOLIOSIS, UNSPECIFIED Qualifiers: Scoliosis type: unspecified scoliosis Spinal region: thoracolumbar Qualified Code(s): M41.9 - Scoliosis, unspecified (10) Seizure Code(s): R56.9 - UNSPECIFIED CONVULSIONS (11) PNA (pneumonia) Code(s): J18.9 - PNEUMONIA, UNSPECIFIED ORGANISM Qualifiers: Pneumonia type: due to unspecified organism Laterality: unspecified laterality Lung location: unspecified part of lung Qualified Code(s): J18.9 - Pneumonia, unspecified organism plan continue abx close watch rest as per the team nutrition
--- NOTE | 2018-10-10 15:46 | PN ---
Progress Note (short form) - Note Progress Note: PULMONARY Awake, nonverbal. NAD on RA. No acute events overnight. Gen: NAD at rest Heart: RRR Lung: scattered rhonchi Abd: soft, nontender Ext: no edema A/P Pneumonia likely Aspiration Sepsis Cerebral Palsy Seizure Disorder Scoliosis - ABX per ID - inhaled bronchodilators - O2 to keep SpO2 >90% - aspiration precautions - antiepileptics - DVT prophylaxis Spencer BENSON MD
[2018-10-10] MEDS: FLUTICASONE PROP 0.05% 16 GM NASAL SPRAY NS SCH (22:37)
[2018-10-10] MEDS: TOPIRAMATE 400 MG GT SCH (23:19)
[2018-10-11] MEDS ORDERED: AZTREONAM 1 GM VIAL (RESTRICTED TO ID) ONE ×3 (01:23→17:00)
[2018-10-11] MEDS ORDERED: DEXTROSE 5%-WATER - 50 ML IVPB ONE ×3 (01:23→17:00)
[2018-10-11] MEDS: AZTREONAM 1 GM in DEXTROSE 5%-WATER - 50 ML IVPB SCH ×3 (01:28→17:13)
[2018-10-11] MEDS ORDERED: PT OWN MED DRAWER 7, Y5N ONE ×5 (05:26→21:50)
[2018-10-11] MEDS: carBAMazepine 200 MG/10 ML UNIT-DOSE CUP GT SCH ×3 (06:03→23:17)
[2018-10-11] MEDS: SILVER SULFADIAZINE 1% TOP CREAM 50 GM JAR TP SCH ×3 (06:03→22:07)
[2018-10-11] MEDS: ZONISAMIDE 100 MG/10 ML ORAL SUSPENSION GT SCH ×4 (06:04→22:21)
[2018-10-11] MEDS: SODIUM CHLORIDE 1,000 ML IV SCH ×4 (06:35→21:07)
[2018-10-11 07:32] LABS: BASO % 0.3 % (0-2.0); EOS % 0.3 % (0-4.5); HEMATOCRIT 33.9 % (35.4-49); HEMOGLOBIN 11.4 GM/dL (11.7-16.9); LYMPH % 43.3 % (8-40); MCH 33.1 pg (25.7-33.7); MCHC 33.5 g/dl (32.0-35.9); MEAN CELL VOLUME 98.7 fl (80-96); MEAN PLT VOLUME 7.3 fl (7.5-11.1); MONO % 5.8 % (3.8-10.2); NEUT % 50.3 % (42.8-82.8); PLATELET COUNT 140 K/MM3 (134-434); RBC 3.44 M/mm3 (4.00-5.60); RDW 13.1 % (11.9-15.9); WHITE BLOOD COUNT 6.4 K/mm3 (4.0-10.0)
[2018-10-11] MEDS: IPRATROPIUM BR 0.02% 0.5 MG/2.5 ML VIAL.NEB. NEB SCH ×4 (07:43→20:50)
[2018-10-11 08:28] LABS: ANION GAP 8 MMOL/L (8-16); BLOOD UREA NITROGEN 7 mg/dL (7-18); CALCIUM 8.1 mg/dL (8.5-10.1); CHLORIDE 109 mmol/L (98-107); CO2 23 mmol/L (21-32); CREATININE 0.3 mg/dL (0.55-1.3); GLUCOSE,RANDOM 95 mg/dL (74-106); POTASSIUM 3.7 mmol/L (3.5-5.1); SODIUM 140 mmol/L (136-145)
--- NOTE | 2018-10-11 09:03 | PN ---
Progress Note, Physician - Current Medication List Current Medications: Active Medications Acetaminophen (Tylenol -) 500 mg GT Q6H PRN PRN Reason: FEVER Last Admin: 10/07/18 14:51 Dose: 500 mg Bacitracin (Bacitracin -) 1 applic TP DAILY [facility] Last Admin: 10/10/18 09:11 Dose: 1 applic Carbamazepine (Tegretol Oral Suspension -) 300 mg GT DAILY@1400 [facility] Last Admin: 10/10/18 13:41 Dose: 300 mg Carbamazepine (Tegretol Oral Suspension -) 400 mg GT BID@0700,2200 [facility] Last Admin: 10/11/18 06:03 Dose: 400 mg Clobazam (Onfi -) 5 mg GT DAILY [facility] Last Admin: 10/10/18 09:16 Dose: 5 mg Clobazam (Onfi -) 10 mg GT HS [facility] Last Admin: 10/10/18 22:40 Dose: 10 mg Enoxaparin Sodium (Lovenox -) 40 mg SQ DAILY [facility] Last Admin: 10/10/18 09:15 Dose: 40 mg Epinephrine (Epipen 0.3mg -) 0.3 mg IM PRN PRN PRN Reason: IN EMERGENCY Fluticasone Propionate (Flonase -) 2 spray NS HS [facility] Last Admin: 10/10/18 22:37 Dose: 2 sprays Aztreonam 1 gm/ Dextrose 50 mls @ 100 mls/hr IVPB Q8H-IV [facility]; Protocol Last Admin: 10/11/18 01:28 Dose: 100 mls/hr Sodium Chloride (Normal Saline -) 1,000 mls @ 75 mls/hr IV ASDIR [facility] Last Admin: 10/11/18 06:35 Dose: 75 mls/hr Ipratropium [place] (Atrovent 0.02% Nebulizer -) 1 amp NEB RQID [facility] Last Admin: 10/11/18 07:43 Dose: 1 amp Methylprednisolone Sodium Succinate (Solu-Medrol -) 40 mg IVPUSH DAILY [facility] Stop: 10/11/18 10:01 Last Admin: 10/10/18 09:12 Dose: 40 mg Mineral Oil (Fleet Mineral Oil Rectal Enema -) 133 ml [place] ONCE PRN PRN Reason: BOWEL MOVEMENTS Patient's Own Med( Rufinamide [Banzel] 1,600 Mg) 1,600 mg GT BID [facility] Last Admin: 10/10/18 23:19 Dose: Not Given Patient's Own Med ( Topiramate [Qudexy Xr] 400 Mg) 400 mg GT HS [facility] Last Admin: 10/10/18 23:19 Dose: Not Given Scopolamine HBr (Transderm-Scop -) 1 patch TD Q3D@1000 [facility] Last Admin: 10/10/18 09:19 Dose: 1 patch Silver Sulfadiazine (Silvadene -) 1 applic TP TID [facility] Last Admin: 10/11/18 06:03 Dose: 1 applic Topiramate 200 mg/ Topiramate (100 mg) 300 mg GT DAILY [facility] Last Admin: 10/10/18 09:17 Dose: 300 mg Zonisamide (Zonisamide) 50 mg GT HS [facility] Last Admin: 10/10/18 22:38 Dose: 50 mg Zonisamide (Zonisamide) 200 mg GT TID [facility] Last Admin: 10/11/18 06:04 Dose: 200 mg - Objective Vital Signs: Vital Signs Temperature 97.6 F 10/11/18 08:34 Pulse Rate 91 H 10/11/18 08:34 Respiratory Rate 20 10/11/18 08:34 Blood Pressure 128/87 10/11/18 08:34 O2 Sat by Pulse Oximetry (%) 96 10/11/18 08:34 Labs: CBC, BMP 10/11/18 07:00 10/11/18 07:00 INR, PTT INR 1.30 (0.83-1.09) H 10/06/18 21:30 Assessment/Plan (1) Aspiration pneumonia c/w pipercillin/tazobactam sputum grew 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
[2018-10-11] MEDS: ENOXAPARIN NA (PORCINE) 40 MG/0.4 ML DISP.SYRIN SQ SCH (09:13)
[2018-10-11] MEDS: methylPREDNISolone NA SUCC 40 MG/1 ML VIAL IVPUSH SCH (09:13)
[2018-10-11] MEDS: TOPIRAMATE 200 MG, TOPIRAMATE 100 MG GT SCH (09:13)
[2018-10-11] MEDS: cloBAZam 10 MG TABLET GT SCH ×2 (09:14→21:56)
[2018-10-11] MEDS: BACITRACIN 15 GM TUBE TOPICAL OINTMENT TP SCH (09:15)
[2018-10-11] MEDS: RUFINAMIDE GT SCH ×2 (09:16→22:18)
--- NOTE | 2018-10-11 11:04 | PN ---
Progress Note, Physician History of Present Illness: patient stable calm - Current Medication List Current Medications: Active Medications Acetaminophen (Tylenol -) 500 mg GT Q6H PRN PRN Reason: FEVER Last Admin: 10/07/18 14:51 Dose: 500 mg Bacitracin (Bacitracin -) 1 applic TP DAILY [facility] Last Admin: 10/11/18 09:15 Dose: 1 applic Carbamazepine (Tegretol Oral Suspension -) 300 mg GT DAILY@1400 [facility] Last Admin: 10/10/18 13:41 Dose: 300 mg Carbamazepine (Tegretol Oral Suspension -) 400 mg GT BID@0700,2200 [facility] Last Admin: 10/11/18 06:03 Dose: 400 mg Clobazam (Onfi -) 5 mg GT DAILY [facility] Last Admin: 10/11/18 09:14 Dose: 5 mg Clobazam (Onfi -) 10 mg GT HS [facility] Last Admin: 10/10/18 22:40 Dose: 10 mg Enoxaparin Sodium (Lovenox -) 40 mg SQ DAILY [facility] Last Admin: 10/11/18 09:13 Dose: 40 mg Epinephrine (Epipen 0.3mg -) 0.3 mg IM PRN PRN PRN Reason: IN EMERGENCY Fluticasone Propionate (Flonase -) 2 spray NS [facility] Last Admin: 10/10/18 22:37 Dose: 2 sprays Aztreonam 1 gm/ Dextrose 50 mls @ 100 mls/hr IVPB Q8H-IV [facility]; Protocol Last Admin: 10/11/18 09:12 Dose: 100 mls/hr Sodium Chloride (Normal Saline -) 1,000 mls @ 75 mls/hr IV ASDIR [facility] Last Admin: 10/11/18 06:35 Dose: 75 mls/hr Ipratropium [place] (Atrovent 0.02% Nebulizer -) 1 amp NEB RQID [facility] Last Admin: 10/11/18 07:43 Dose: 1 amp Mineral Oil (Fleet Mineral Oil Rectal Enema -) 133 ml [place] ONCE PRN PRN Reason: BOWEL MOVEMENTS Patient's Own Med( Rufinamide [Banzel] 1,600 Mg) 1,600 mg GT BID [facility] Last Admin: 10/11/18 09:16 Dose: 1,600 mg Patient's Own Med ( Topiramate [Qudexy Xr] 400 Mg) 400 mg GT HS [facility] Last Admin: 10/10/18 23:19 Dose: Not Given Scopolamine HBr (Transderm-Scop -) 1 patch TD Q3D@1000 [facility] Last Admin: 10/10/18 09:19 Dose: 1 patch Silver Sulfadiazine (Silvadene -) 1 applic TP TID [facility] Last Admin: 10/11/18 06:03 Dose: 1 applic Topiramate 200 mg/ Topiramate (100 mg) 300 mg GT DAILY [facility] Last Admin: 10/11/18 09:13 Dose: 300 mg Zonisamide (Zonisamide) 50 mg GT HS [facility] Last Admin: 10/10/18 22:38 Dose: 50 mg Zonisamide (Zonisamide) 200 mg GT TID [facility] Last Admin: 10/11/18 06:04 Dose: 200 mg - Objective Vital Signs: Vital Signs Temperature 97.6 F 10/11/18 08:34 Pulse Rate 91 H 10/11/18 08:34 Respiratory Rate 20 10/11/18 08:34 Blood Pressure 128/87 10/11/18 08:34 O2 Sat by Pulse Oximetry (%) 96 10/11/18 08:34 Constitutional: Yes: No Distress, Calm Cardiovascular: Yes: Regular Rate and Rhythm Respiratory: Yes: Regular, Poor Air Entry Gastrointestinal: Yes: Normal Bowel Sounds, Soft, Other Musculoskeletal: Yes: WNL Extremities: Yes: Other (contracted) Neurological: Yes: Alert, Other Psychiatric: Yes: Other Labs: CBC, BMP 10/11/18 07:00 10/11/18 07:00 INR, PTT INR 1.30 (0.83-1.09) H 10/06/18 21:30 Assessment/Plan Problem List - Problems (1) Fever Code(s): R50.9 - FEVER, UNSPECIFIED (2) Aspiration pneumonia Code(s): J69.0 - PNEUMONITIS DUE TO INHALATION OF FOOD AND VOMIT (3) Atelectasis of left lung Code(s): J98.11 - ATELECTASIS (4) Gastrostomy tube dependent Code(s): Z93.1 - GASTROSTOMY STATUS (5) Pneumonia Code(s): J18.9 - PNEUMONIA, UNSPECIFIED ORGANISM (6) Allergy to multiple antibiotics Code(s): Z88.1 - ALLERGY STATUS TO OTHER ANTIBIOTIC AGENTS STATUS (7) Cerebral palsy Code(s): G80.9 - CEREBRAL PALSY, UNSPECIFIED Qualifiers: 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(s): G80.0 - Spastic quadriplegic cerebral palsy (8) Functional quadriplegia Code(s): R53.2 - FUNCTIONAL QUADRIPLEGIA (9) Scoliosis Code(s): M41.9 - SCOLIOSIS, UNSPECIFIED Qualifiers: Scoliosis type: unspecified scoliosis Spinal region: thoracolumbar Qualified Code(s): M41.9 - Scoliosis, unspecified (10) Seizure Code(s): R56.9 - UNSPECIFIED CONVULSIONS (11) PNA (pneumonia) Code(s): J18.9 - PNEUMONIA, UNSPECIFIED ORGANISM Qualifiers: Pneumonia type: due to unspecified organism Laterality: unspecified laterality Lung location: unspecified part of lung Qualified Code(s): J18.9 - Pneumonia, unspecified organism plan sputum cx result noted await for identification of the organism rest as per the team continue abx
[2018-10-11] MEDS: FLUTICASONE PROP 0.05% 16 GM NASAL SPRAY NS SCH (22:07)
[2018-10-11] MEDS: TOPIRAMATE 400 MG GT SCH (22:14)
[2018-10-12] MEDS: carBAMazepine 200 MG/10 ML UNIT-DOSE CUP GT SCH ×4 (00:26→22:51)
[2018-10-12] MEDS: AZTREONAM 1 GM in DEXTROSE 5%-WATER - 50 ML IVPB SCH ×2 (02:55→10:03)
[2018-10-12] MEDS ORDERED: DEXTROSE 5%-WATER - 50 ML IVPB ONE ×2 (03:01→09:58)
[2018-10-12] MEDS ORDERED: AZTREONAM 1 GM VIAL (RESTRICTED TO ID) ONE ×2 (03:01→09:58)
[2018-10-12] MEDS: ZONISAMIDE 100 MG/10 ML ORAL SUSPENSION GT SCH ×4 (06:08→22:48)
[2018-10-12] MEDS: SILVER SULFADIAZINE 1% TOP CREAM 50 GM JAR TP SCH ×3 (06:09→23:10)
[2018-10-12 07:19] LABS: BASO % 0.2 % (0-2.0); EOS % 0.2 % (0-4.5); HEMATOCRIT 34.3 % (35.4-49); HEMOGLOBIN 11.6 GM/dL (11.7-16.9); MCH 33.2 pg (25.7-33.7); MCHC 33.8 g/dl (32.0-35.9); MEAN CELL VOLUME 98.4 fl (80-96); MEAN PLT VOLUME 7.6 fl (7.5-11.1); MONO % 5.9 % (3.8-10.2); NEUT % 56.7 % (42.8-82.8); PLATELET COUNT 165 K/MM3 (134-434); RBC 3.49 M/mm3 (4.00-5.60); RDW 13.2 % (11.9-15.9); WHITE BLOOD COUNT 7.5 K/mm3 (4.0-10.0)
--- NOTE | 2018-10-12 07:37 | PN ---
Progress Note, Physician - Current Medication List Current Medications: Active Medications Acetaminophen (Tylenol -) 500 mg GT Q6H PRN PRN Reason: FEVER Last Admin: 10/07/18 14:51 Dose: 500 mg Bacitracin (Bacitracin -) 1 applic TP DAILY [facility] Last Admin: 10/11/18 09:15 Dose: 1 applic Carbamazepine (Tegretol Oral Suspension -) 300 mg GT DAILY@1400 [facility] Last Admin: 10/11/18 13:20 Dose: 300 mg Carbamazepine (Tegretol Oral Suspension -) 400 mg GT BID@0700,2200 [facility] Last Admin: 10/12/18 06:09 Dose: 400 mg Clobazam (Onfi -) 5 mg GT DAILY [facility] Last Admin: 10/11/18 09:14 Dose: 5 mg Clobazam (Onfi -) 10 mg GT [facility] Last Admin: 10/11/18 21:56 Dose: 10 mg Enoxaparin Sodium (Lovenox -) 40 mg SQ DAILY [facility] Last Admin: 10/11/18 09:13 Dose: 40 mg Epinephrine (Epipen 0.3mg -) 0.3 mg IM PRN PRN PRN Reason: IN EMERGENCY Fluticasone Propionate (Flonase -) 2 spray NS [facility] Last Admin: 10/11/18 22:07 Dose: 2 sprays Aztreonam 1 gm/ Dextrose 50 mls @ 100 mls/hr IVPB Q8H-IV [facility]; Protocol Last Admin: 10/12/18 02:55 Dose: 100 mls/hr Sodium Chloride (Normal Saline -) 1,000 mls @ 75 mls/hr IV ASDIR [facility] Last Admin: 10/11/18 21:07 Dose: Not Given Ipratropium [place] (Atrovent 0.02% Nebulizer -) 1 amp NEB RQID [facility] Last Admin: 10/11/18 20:50 Dose: 1 amp Mineral Oil (Fleet Mineral Oil Rectal Enema -) 133 ml [place] ONCE PRN PRN Reason: BOWEL MOVEMENTS Patient's Own Med( Rufinamide [Banzel] 1,600 Mg) 1,600 mg GT BID [facility] Last Admin: 10/11/18 22:18 Dose: 1,600 mg Patient's Own Med ( Topiramate [Qudexy Xr] 400 Mg) 400 mg GT [facility] Last Admin: 10/11/18 22:14 Dose: 400 mg Scopolamine HBr (Transderm-Scop -) 1 patch TD Q3D@1000 [facility] Last Admin: 10/10/18 09:19 Dose: 1 patch Silver Sulfadiazine (Silvadene -) 1 applic TP TID [facility] Last Admin: 10/12/18 06:09 Dose: 1 applic Topiramate 200 mg/ Topiramate (100 mg) 300 mg GT DAILY [facility] Last Admin: 10/11/18 09:13 Dose: 300 mg Zonisamide (Zonisamide) 50 mg GT HS [facility] Last Admin: 10/11/18 22:20 Dose: 50 mg Zonisamide (Zonisamide) 200 mg GT TID [facility] Last Admin: 10/12/18 06:08 Dose: 200 mg - Objective Vital Signs: Vital Signs Temperature 98.3 F 10/12/18 05:00 Pulse Rate 92 H 10/12/18 05:00 Respiratory Rate 18 10/12/18 05:00 Blood Pressure 101/59 L 10/12/18 05:00 O2 Sat by Pulse Oximetry (%) 92 L 10/11/18 21:00 Constitutional: Yes: Well Nourished, No Distress, Calm Eyes: Yes: WNL, Conjunctiva Clear, EOM Intact HENT: Yes: WNL, Atraumatic, Normocephalic Neck: Yes: WNL, Supple, Trachea Midline Cardiovascular: Yes: WNL, Regular Rate and Rhythm Respiratory: Yes: WNL, Regular, CTA Bilaterally Gastrointestinal: Yes: WNL, Normal Bowel Sounds, Soft Extremities: Yes: WNL ...Motor Strength: WNL Psychiatric: Yes: Alert Labs: CBC, BMP 10/12/18 06:30 INR, PTT INR 1.30 (0.83-1.09) H 10/06/18 21:30 Assessment/Plan (1) Aspiration pneumonia c/w pipercillin/tazobactam sputum grew 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
[2018-10-12 07:54] LABS: ALBUMIN 2.7 g/dl (3.4-5.0); ALK PHOS 86 U/L (45-117); ANION GAP 6 MMOL/L (8-16); BILIRUBIN,TOTAL 0.3 mg/dL (0.2-1); BLOOD UREA NITROGEN 7 mg/dL (7-18); CALCIUM 8.2 mg/dL (8.5-10.1); CHLORIDE 108 mmol/L (98-107); CO2 26 mmol/L (21-32); CREATININE 0.2 mg/dL (0.55-1.3); GLUCOSE,RANDOM 88 mg/dL (74-106); POTASSIUM 3.7 mmol/L (3.5-5.1); SGOT/AST 20 U/L (15-37); SGPT/ALT 43 U/L (13-61); SODIUM 139 mmol/L (136-145); TOT PROT 6.3 g/dl (6.4-8.2)
[2018-10-12] MEDS: IPRATROPIUM BR 0.02% 0.5 MG/2.5 ML VIAL.NEB. NEB SCH (08:10)
[2018-10-12] MEDS ORDERED: PT OWN MED DRAWER 7, Y5N ONE ×3 (09:59→22:50)
[2018-10-12] MEDS: BACITRACIN 15 GM TUBE TOPICAL OINTMENT TP SCH (10:04)
[2018-10-12] MEDS: cloBAZam 10 MG TABLET GT SCH ×2 (10:04→22:50)
[2018-10-12] MEDS: ENOXAPARIN NA (PORCINE) 40 MG/0.4 ML DISP.SYRIN SQ SCH (10:04)
[2018-10-12] MEDS: RUFINAMIDE GT SCH ×2 (10:06→22:51)
[2018-10-12] MEDS: TOPIRAMATE 200 MG, TOPIRAMATE 100 MG GT SCH (10:07)
--- NOTE | 2018-10-12 12:27 | PN ---
Progress Note, Physician History of Present Illness: stable comfortable non verbal - Current Medication List Current Medications: Active Medications Acetaminophen (Tylenol -) 500 mg GT Q6H PRN PRN Reason: FEVER Last Admin: 10/07/18 14:51 Dose: 500 mg Bacitracin (Bacitracin -) 1 applic TP DAILY [facility] Last Admin: 10/12/18 10:04 Dose: 1 applic Carbamazepine (Tegretol Oral Suspension -) 300 mg GT DAILY@1400 [facility] Last Admin: 10/11/18 13:20 Dose: 300 mg Carbamazepine (Tegretol Oral Suspension -) 400 mg GT BID@0700,2200 [facility] Last Admin: 10/12/18 06:09 Dose: 400 mg Clobazam (Onfi -) 5 mg GT DAILY [facility] Last Admin: 10/12/18 10:04 Dose: 5 mg Clobazam (Onfi -) 10 mg GT HS [facility] Last Admin: 10/11/18 21:56 Dose: 10 mg Enoxaparin Sodium (Lovenox -) 40 mg SQ DAILY [facility] Last Admin: 10/12/18 10:04 Dose: 40 mg Epinephrine (Epipen 0.3mg -) 0.3 mg IM PRN PRN PRN Reason: IN EMERGENCY Fluticasone Propionate (Flonase -) 2 spray NS [facility] Last Admin: 10/11/18 22:07 Dose: 2 sprays Aztreonam 1 gm/ Dextrose 50 mls @ 100 mls/hr IVPB Q8H-IV BRAD; Protocol Last Admin: 10/12/18 10:03 Dose: 100 mls/hr Sodium Chloride (Normal Saline -) 1,000 mls @ 75 mls/hr IV ASDIR [facility] Last Admin: 10/11/18 21:07 Dose: Not Given Mineral Oil (Fleet Mineral Oil Rectal Enema -) 133 ml [place] ONCE PRN PRN Reason: BOWEL MOVEMENTS Patient's Own Med( Rufinamide [Banzel] 1,600 Mg) 1,600 mg GT BID [facility] Last Admin: 10/12/18 10:06 Dose: 1,600 mg Patient's Own Med ( Topiramate [Qudexy Xr] 400 Mg) 400 mg GT HS [facility] Last Admin: 10/11/18 22:14 Dose: 400 mg Scopolamine HBr (Transderm-Scop -) 1 patch TD Q3D@1000 [facility] Last Admin: 10/10/18 09:19 Dose: 1 patch Silver Sulfadiazine (Silvadene -) 1 applic TP TID [facility] Last Admin: 10/12/18 06:09 Dose: 1 applic Topiramate 200 mg/ Topiramate (100 mg) 300 mg GT DAILY [facility] Last Admin: 10/12/18 10:07 Dose: 300 mg Zonisamide (Zonisamide) 50 mg GT HS [facility] Last Admin: 10/11/18 22:20 Dose: 50 mg Zonisamide (Zonisamide) 200 mg GT TID [facility] Last Admin: 10/12/18 06:08 Dose: 200 mg - Objective Vital Signs: Vital Signs Temperature 98.3 F 10/12/18 08:00 Pulse Rate 92 H 10/12/18 08:00 Respiratory Rate 18 10/12/18 08:00 Blood Pressure 120/73 10/12/18 08:00 O2 Sat by Pulse Oximetry (%) 95 10/12/18 08:27 Constitutional: Yes: No Distress, Calm Cardiovascular: Yes: Regular Rate and Rhythm Respiratory: Yes: Regular, CTA Bilaterally Gastrointestinal: Yes: Normal Bowel Sounds, Soft Musculoskeletal: Yes: WNL Extremities: Yes: WNL Neurological: Yes: Alert Psychiatric: Yes: Other Labs: CBC, BMP 10/12/18 06:30 10/12/18 06:30 INR, PTT INR 1.30 (0.83-1.09) H 10/06/18 21:30 Assessment/Plan Problem List - Problems (1) Fever Code(s): R50.9 - FEVER, UNSPECIFIED (2) Aspiration pneumonia Code(s): J69.0 - PNEUMONITIS DUE TO INHALATION OF FOOD AND VOMIT (3) Atelectasis of left lung Code(s): J98.11 - ATELECTASIS (4) Gastrostomy tube dependent Code(s): Z93.1 - GASTROSTOMY STATUS (5) Pneumonia Code(s): J18.9 - PNEUMONIA, UNSPECIFIED ORGANISM (6) Allergy to multiple antibiotics Code(s): Z88.1 - ALLERGY STATUS TO OTHER ANTIBIOTIC AGENTS STATUS (7) Cerebral palsy Code(s): G80.9 - CEREBRAL PALSY, UNSPECIFIED Qualifiers: 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(s): G80.0 - Spastic quadriplegic cerebral palsy (8) Functional quadriplegia Code(s): R53.2 - FUNCTIONAL QUADRIPLEGIA (9) Scoliosis Code(s): M41.9 - SCOLIOSIS, UNSPECIFIED Qualifiers: Scoliosis type: unspecified scoliosis Spinal region: thoracolumbar Qualified Code(s): M41.9 - Scoliosis, unspecified (10) Seizure Code(s): R56.9 - UNSPECIFIED CONVULSIONS (11) PNA (pneumonia) Code(s): J18.9 - PNEUMONIA, UNSPECIFIED ORGANISM Qualifiers: Pneumonia type: due to unspecified organism Laterality: unspecified laterality Lung location: unspecified part of lung Qualified Code(s): J18.9 - Pneumonia, unspecified organism plan continue abx close watch rest as per the team nutrition
[2018-10-12] MEDS: TOPIRAMATE 400 MG GT SCH (22:51)
[2018-10-12] MEDS: FLUTICASONE PROP 0.05% 16 GM NASAL SPRAY NS SCH (23:10)
[2018-10-13] MEDS: ZONISAMIDE 100 MG/10 ML ORAL SUSPENSION GT SCH ×2 (05:39→13:54)
[2018-10-13] MEDS: SILVER SULFADIAZINE 1% TOP CREAM 50 GM JAR TP SCH ×2 (05:42→13:53)
[2018-10-13 06:09] VITALS: BP 110/70; PULSE 86; TEMP 98
[2018-10-13 06:16] LABS: BASO % 0.5 % (0-2.0); EOS % 0.9 % (0-4.5); HEMATOCRIT 35.9 % (35.4-49); HEMOGLOBIN 12.2 GM/dL (11.7-16.9); LYMPH % 36.8 % (8-40); MCH 33.3 pg (25.7-33.7); MCHC 34.1 g/dl (32.0-35.9); MEAN CELL VOLUME 97.6 fl (80-96); MEAN PLT VOLUME 7.2 fl (7.5-11.1); MONO % 5.9 % (3.8-10.2); NEUT % 55.9 % (42.8-82.8); PLATELET COUNT 210 K/MM3 (134-434); RBC 3.68 M/mm3 (4.00-5.60); RDW 12.9 % (11.9-15.9); WHITE BLOOD COUNT 7.5 K/mm3 (4.0-10.0)
[2018-10-13 06:42] LABS: BLOOD UREA NITROGEN 6 mg/dL (7-18); CHLORIDE 105 mmol/L (98-107); CO2 28 mmol/L (21-32); CREATININE 0.3 mg/dL (0.55-1.3); GLUCOSE,RANDOM 81 mg/dL (74-106); POTASSIUM 3.9 mmol/L (3.5-5.1); SODIUM 139 mmol/L (136-145)
[2018-10-13 06:43] LABS: ALBUMIN 2.9 g/dl (3.4-5.0); ALK PHOS 95 U/L (45-117); ANION GAP 6 MMOL/L (8-16); BILIRUBIN,TOTAL 0.2 mg/dL (0.2-1); CALCIUM 8.6 mg/dL (8.5-10.1); SGOT/AST 17 U/L (15-37); SGPT/ALT 39 U/L (13-61); TOT PROT 6.5 g/dl (6.4-8.2)
[2018-10-13] MEDS ORDERED: PT OWN MED DRAWER 7, Y5N ONE ×3 (06:50→13:47)
[2018-10-13] MEDS: carBAMazepine 200 MG/10 ML UNIT-DOSE CUP GT SCH ×2 (06:55→13:53)
--- NOTE | 2018-10-13 08:17 | DS ---
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 Condition: Stable - Instructions Diet, Activity, Other Instructions: Patient developes recurrent aspiration pneumonia on PEG feeding nneds aspiration precautions while feeding via PEG. 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 Disposition: [facility] - Home Medications Comprehensive Discharge Medication List: Ambulatory Orders Clobazam [Onfi -] 10 mg GT HS 11/23/17 Diazepam [Diastat] 10 mg RC ONCE PRN 11/23/17 Fluticasone Prop 0.05% Nasal [Flonase -] 2 spray NS HS 11/23/17 Lorazepam [Ativan] 1 mg GT ASDIR PRN 11/23/17 Polyethylene Glycol 3350 [Miralax 119 gm Btl -] 17 gm GT ASDIR 11/23/17 Rufinamide [Banzel] 1,600 mg GT BID 11/23/17 Zonisamide [Zonegran -] 50 mg GT HS 11/23/17 Zonisamide [Zonegran] 200 mg GT TID 11/23/17 Topiramate [Topamax] 300 mg GT DAILY 02/14/18 Carbamazepine 300 mg GT DAILY 04/02/18 Ipratropium 0.02% Nebulizer [Atrovent 0.02% Nebulizer -] 1 amp IH QID PRN Topiramate [Qudexy Xr] 400 mg GT HS 04/02/18 Silver Sulfadiazine 1% Top Cr 1 appful TP TID 04/22/18 Clobazam [Onfi -] 5 mg GT DAILY 04/23/18 EPINEPHrine (EPI-PEN 0.3MG) [Epipen 0.3MG -] 0.3 mg IM ASDIR 04/23/18 Hydrocolloid Dressing [Duoderm Cgf] 1 applic TP DAILY PRN 04/23/18 Scopolamine Hydrobromide [Transderm-Scop -] 1 patch TD Q3D@1000 patch.td72 Acetaminophen [Tylenol .Extra-Strength -] 500 mg GT Q6H PRN tablet 10/13/18 Bacitracin - [Bacitracin Topical Ointment -] 1 applic TP DAILY tube 10/13/18 Ipratropium 0.02% Nebulizer [Atrovent 0.02% Nebulizer -] 1 amp NEB RQID amp Mineral Oil Enema [Fleet Mineral Oil Rectal Enema -] 133 ml [place] ONCE PRN enema 10/13/18 levoFLOXacin [Levaquin -] 750 mg PO DAILY@0600 tablet 10/13/18
[2018-10-13] MEDS: ENOXAPARIN NA (PORCINE) 40 MG/0.4 ML DISP.SYRIN SQ SCH (10:22)
[2018-10-13] MEDS: cloBAZam 10 MG TABLET GT SCH (10:23)
[2018-10-13] MEDS: BACITRACIN 15 GM TUBE TOPICAL OINTMENT TP SCH (10:24)
[2018-10-13] MEDS: TOPIRAMATE 200 MG, TOPIRAMATE 100 MG GT SCH (10:25)
[2018-10-13] MEDS: SCOPOLAMINE HYDROBROMIDE 1 PATCH PATCH.TD72 TD SCH (10:27)
[2018-10-13] MEDS: RUFINAMIDE GT SCH (10:32)
--- NOTE | 2018-10-13 10:45 | PN ---
Progress Note (short form) - Note Progress Note: PULMONARY Awake, nonverbal. No fevers recorded. Vital Signs Period Temp Pulse Resp BP Sys/Grossman Pulse Ox Last 24 Hr 97.8 F-98.4 F 83-87 17-20 105-110/66-76 96 Gen: NAD at rest Heart: RRR Lung: scattered rhonchi Abd: soft, nontender Ext: no edema CBC, BMP 10/13/18 06:00 10/13/18 06:00 Active Medications Acetaminophen (Tylenol -) 500 mg GT Q6H PRN PRN Reason: FEVER Last Admin: 10/07/18 14:51 Dose: 500 mg Bacitracin (Bacitracin -) 1 applic TP DAILY [facility] Last Admin: 10/13/18 10:24 Dose: 1 applic Carbamazepine (Tegretol Oral Suspension -) 300 mg GT DAILY@1400 [facility] Last Admin: 10/12/18 13:17 Dose: 300 mg Carbamazepine (Tegretol Oral Suspension -) 400 mg GT BID@0700,2200 [facility] Last Admin: 10/13/18 06:55 Dose: 400 mg Clobazam (Onfi -) 5 mg GT DAILY [facility] Last Admin: 10/13/18 10:23 Dose: 5 mg Clobazam (Onfi -) 10 mg GT HS [facility] Last Admin: 10/12/18 22:50 Dose: 10 mg Enoxaparin Sodium (Lovenox -) 40 mg SQ DAILY [facility] Last Admin: 10/13/18 10:22 Dose: 40 mg Epinephrine (Epipen 0.3mg -) 0.3 mg IM PRN PRN PRN Reason: IN EMERGENCY Fluticasone Propionate (Flonase -) 2 spray NS HS [facility] Last Admin: 10/12/18 23:10 Dose: 2 sprays Levofloxacin (Levaquin -) 750 mg PO DAILY@0600 [facility] Last Admin: 10/13/18 05:43 Dose: 750 mg Mineral Oil (Fleet Mineral Oil Rectal Enema -) 133 ml [place] ONCE PRN PRN Reason: BOWEL MOVEMENTS Last Admin: 10/12/18 21:15 Dose: 133 ml Patient's Own Med( Rufinamide [Banzel] 1,600 Mg) 1,600 mg GT BID [facility] Last Admin: 10/13/18 10:32 Dose: 1,600 mg Patient's Own Med ( Topiramate [Qudexy Xr] 400 Mg) 400 mg GT HS [facility] Last Admin: 10/12/18 22:51 Dose: 400 mg Scopolamine HBr (Transderm-Scop -) 1 patch TD Q3D@1000 [facility] Last Admin: 10/13/18 10:27 Dose: 1 patch Silver Sulfadiazine (Silvadene -) 1 applic TP TID [facility] Last Admin: 10/13/18 05:42 Dose: 1 applic Topiramate 200 mg/ Topiramate (100 mg) 300 mg GT DAILY [facility] Last Admin: 10/13/18 10:25 Dose: 300 mg Zonisamide (Zonisamide) 50 mg GT HS [facility] Last Admin: 10/12/18 22:48 Dose: 50 mg Zonisamide (Zonisamide) 200 mg GT TID [facility] Last Admin: 10/13/18 05:39 Dose: 200 mg A/P Pneumonia likely Aspiration Sepsis Cerebral Palsy Seizure Disorder Scoliosis - complete antibiotics - inhaled bronchodilators - O2 to keep SpO2 >90% - aspiration precautions - antiepileptics - DVT prophylaxis
--- NOTE | 2018-10-13 12:34 | PN ---
Progress Note, Physician - Current Medication List Current Medications: Active Medications Acetaminophen (Tylenol -) 500 mg GT Q6H PRN PRN Reason: FEVER Last Admin: 10/07/18 14:51 Dose: 500 mg Bacitracin (Bacitracin -) 1 applic TP DAILY [facility] Last Admin: 10/13/18 10:24 Dose: 1 applic Carbamazepine (Tegretol Oral Suspension -) 300 mg GT DAILY@1400 [facility] Last Admin: 10/12/18 13:17 Dose: 300 mg Carbamazepine (Tegretol Oral Suspension -) 400 mg GT BID@0700,2200 [facility] Last Admin: 10/13/18 06:55 Dose: 400 mg Clobazam (Onfi -) 5 mg GT DAILY [facility] Last Admin: 10/13/18 10:23 Dose: 5 mg Clobazam (Onfi -) 10 mg GT HS [facility] Last Admin: 10/12/18 22:50 Dose: 10 mg Enoxaparin Sodium (Lovenox -) 40 mg SQ DAILY [facility] Last Admin: 10/13/18 10:22 Dose: 40 mg Epinephrine (Epipen 0.3mg -) 0.3 mg IM PRN PRN PRN Reason: IN EMERGENCY Fluticasone Propionate (Flonase -) 2 spray NS [facility] Last Admin: 10/12/18 23:10 Dose: 2 sprays Levofloxacin (Levaquin -) 750 mg PO DAILY@0600 [facility] Last Admin: 10/13/18 05:43 Dose: 750 mg Mineral Oil (Fleet Mineral Oil Rectal Enema -) 133 ml [place] ONCE PRN PRN Reason: BOWEL MOVEMENTS Last Admin: 10/12/18 21:15 Dose: 133 ml Patient's Own Med( Rufinamide [Banzel] 1,600 Mg) 1,600 mg GT BID [facility] Last Admin: 10/13/18 10:32 Dose: 1,600 mg Patient's Own Med ( Topiramate [Qudexy Xr] 400 Mg) 400 mg GT HS [facility] Last Admin: 10/12/18 22:51 Dose: 400 mg Scopolamine HBr (Transderm-Scop -) 1 patch TD Q3D@1000 [facility] Last Admin: 10/13/18 10:27 Dose: 1 patch Silver Sulfadiazine (Silvadene -) 1 applic TP TID [facility] Last Admin: 10/13/18 05:42 Dose: 1 applic Topiramate 200 mg/ Topiramate (100 mg) 300 mg GT DAILY [facility] Last Admin: 10/13/18 10:25 Dose: 300 mg Zonisamide (Zonisamide) 50 mg GT HS [facility] Last Admin: 10/12/18 22:48 Dose: 50 mg Zonisamide (Zonisamide) 200 mg GT TID [facility] Last Admin: 10/13/18 05:39 Dose: 200 mg - Objective Vital Signs: Vital Signs Temperature 98.0 F 10/13/18 06:08 Pulse Rate 86 10/13/18 06:08 Respiratory Rate 18 10/13/18 06:08 Blood Pressure 110/70 10/13/18 06:08 O2 Sat by Pulse Oximetry (%) 96 10/12/18 21:00 Labs: CBC, BMP 10/13/18 06:00 10/13/18 06:00 INR, PTT INR 1.30 (0.83-1.09) H 10/06/18 21:30
--- NOTE | 2018-10-13 13:09 | DS ---
Physical Examination Vital Signs: Vital Signs Temperature 98.0 F 10/13/18 06:08 Pulse Rate 86 10/13/18 06:08 Respiratory Rate 18 10/13/18 06:08 Blood Pressure 110/70 10/13/18 06:08 O2 Sat by Pulse Oximetry (%) 96 10/12/18 21:00 Labs: CBC, BMP 10/13/18 06:00 10/13/18 06:00 Discharge Summary Reason For Visit: FEVER,RESPIRATORY DISTRESS,ASPIRATION PNEUMONIA Current Active Problems Fever (Acute) Condition: Stable - Instructions Diet, Activity, Other Instructions: Patient developes recurrent aspiration pneumonia on PEG feeding nneds aspiration precautions while feeding via PEG. 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 Disposition: [facility] - Home Medications Comprehensive Discharge Medication List: Ambulatory Orders Clobazam [Onfi -] 10 mg GT HS 11/23/17 Diazepam [Diastat] 10 mg RC ONCE PRN 11/23/17 Fluticasone Prop 0.05% Nasal [Flonase -] 2 spray NS 11/23/17 Lorazepam [Ativan] 1 mg GT ASDIR PRN 11/23/17 Polyethylene Glycol 3350 [Miralax 119 gm Btl -] 17 gm GT ASDIR 11/23/17 Rufinamide [Banzel] 1,600 mg GT BID 11/23/17 Zonisamide [Zonegran -] 50 mg GT HS 11/23/17 Zonisamide [Zonegran] 200 mg GT TID 11/23/17 Topiramate [Topamax] 300 mg GT DAILY 02/14/18 Carbamazepine 300 mg GT DAILY 04/02/18 Ipratropium 0.02% Nebulizer [Atrovent 0.02% Nebulizer -] 1 amp IH QID PRN Topiramate [Qudexy Xr] 400 mg GT HS 04/02/18 Silver Sulfadiazine 1% Top Cr 1 appful TP TID 04/22/18 Clobazam [Onfi -] 5 mg GT DAILY 04/23/18 EPINEPHrine (EPI-PEN 0.3MG) [Epipen 0.3MG -] 0.3 mg IM ASDIR 04/23/18 Hydrocolloid Dressing [Duoderm Cgf] 1 applic TP DAILY PRN 04/23/18 Scopolamine Hydrobromide [Transderm-Scop -] 1 patch TD Q3D@1000 patch.td72 Acetaminophen [Tylenol .Extra-Strength -] 500 mg GT Q6H PRN tablet 10/13/18 Bacitracin - [Bacitracin Topical Ointment -] 1 applic TP DAILY tube 10/13/18 Ipratropium 0.02% Nebulizer [Atrovent 0.02% Nebulizer -] 1 amp NEB RQID amp Mineral Oil Enema [Fleet Mineral Oil Rectal Enema -] 133 ml [place] ONCE PRN enema 10/13/18 levoFLOXacin [Levaquin -] 750 mg PO DAILY@0600 tablet 10/13/18
== END 2018-10-13 20:00 | disposition home or self-care (01) | DRG 871 ==
LOC: JER 20:30 → JERBED 23:21 → J6S 10-07 07:37
PROVIDERS: ADMIT Hospitalist; ATTEND Internal Medicine
DX: A41.89 Other specified sepsis (principal); J69.0 Pneumonitis due to inhalation of food and vomit; R53.2 Functional quadriplegia; J98.11 Atelectasis; E87.2 Acidosis; F72 Severe intellectual disabilities; Z88.1 Allergy status to other antibiotic agents; G80.9 Cerebral palsy, unspecified; Z93.1 Gastrostomy status; G40.909 Epilepsy, unspecified, not intractable, without status epilepticus; M41.9 Scoliosis, unspecified; K21.9 Gastro-esophageal reflux disease without esophagitis; R74.0 Nonspecific elevation of levels of transaminase and lactic acid dehydrogenase [LDH]
CPT/HCPCS: 36415; 36600; 71045-TC-FY; 71250-TC; 80048; 80053; 81003; 82375; 82803; 82962; 83050; 83605; 83735; 84100; 84484; 85025; 85610; 85730; 86850; 86900; 86901; 87040; 87070; 87086; 87186; 87205; 87324; 87449; 87804; 93005; 93010; 94640; 99283-25; J0131; J7030

== ENCOUNTER 2018-12-06 13:38 | Emergency (ER) | payer OTHER ==
--- NOTE | 2018-12-06 13:51 | PDOC ---
Attending Attestation - Resident Resident Name: Dc Maher - ED Attending Attestation I have performed the following: I have examined & evaluated the patient, The case was reviewed & discussed with the resident, I agree w/resident's findings & plan - HPI HPI: 12/06/18 13:52 28 yrs old man bed bound cerbral palsy quadriplegia, recurrent, seizures, severe MR, aspiration pneumonia, on PEG with recent aspiration pna admission several months ago in September 2018, presenting by EMS from [facility] with unresponsiveness. he was found to be cyanotic and unresponsive, chest PT vs chest compressions performed at facility; found to be in PEA arrest and asystole after EMS arrived after approx 20-30 minutes ~CPR x 45 minutes, s/p bicarb x1 and epi x3, without improvement. continued CPR with [place] device. emergently intubated, unable to get End Tidal CO2, with copious secretion output from ETT. . Patient was in asystole the entire time except for 3 minutes where he was in PEA. Per discussion by resident with [employer] [facility] Nurse found the patient cyanotic shortly before 1pm and saturating at 30% on room air. Nurses provided Physical Therapy of the chest to facilitate air movement, O2 reportedly increased to 97% before patient stopped breathing. EMS was then called and found the patient in asystole and not breathing. compressions initiated by EMS, Rafael device, IO placed to the left tibia. After multiple attempts to place ET tube, he switched from asystole to PEA for 2 minutes before reverting back to asystole. Given total of 3 epi and 1 bicarb en route with Rafael Device, still in asystole, after about 45min of cardiopulmonary arrest. 12/06/18 13:54 12/06/18 16:26 12/06/18 16:28 12/06/18 16:38 - Physicial Exam PE: 12/06/18 13:57 obtunded, unresponsive. pupils dilated and nonreactive. poor dentition. craniofacial abnormalities noted. no bilateral lung sounds, no pulse. abdomen with PEG tube, distended. cool, pale in color. IO in place in left anterior tibia 12/06/18 16:38 - Critical Care Time Total Critical Care Time: 30 (cardiac arrest) Critical Care Statement: The care of this patient involved high complexity decision making to prevent further life threatening deterioration of the patient 's condition and/or to evaluate & treat vital organ system(s) failure or risk of failure. - Medical Decision Making 12/06/18 14:00 cardiac arrest arrived at 130PM, s/p 45 minutes of active CPR and resuscitation. 2 rounds of CPR given, pulse checks <10 seconds with no organized cardiac activity on bedside sono. epi x2 given additionally. no pericardial effusion noted. ACLS protocol followed. airway checked, via glidescope, tube inappropriately placed, as it was in esophagus, hence no end tidal co2 copious secretions and tube feedings in the airway, suggestive of aspiration by this time, due to futility and prolonged cpr and very low likelihood of reversibility and poor prognosis, code called at 1:47pm, time of ME contacted, ME declined the case NOK, father called [facility] made aware, PCP called for update on care and certificate by [facility] physician aviation project engineer, Dr David Gordon father requests autopsy, 12/06/18 16:26 12/06/18 16:28 12/06/18 16:37
--- NOTE | 2018-12-06 14:04 | PDOC ---
History of Present Illness - General Stated Complaint: CARDIAC ARREST Time Seen by Provider: 12/06/18 13:51 - History of Present Illness Initial Comments: 12/06/18 14:05 Mr. Patterson is a 28 yo male w/ pmh of cerebral palsy, seizures, epilepsy, recurrent aspiration pneumonia, scoliosis, PEG tube BIBEMS from [facility] after being found cyanotic in cardiopulmonary arrest 45 min ago. EMS gave the patient 3 round of epinephrine and 1 round of bicarp. Patient was in asystole the entire time except for 3 minutes where he was in PEA. Nurse found the patient cyanotic shortly before 1pm and saturating at 30% on room air. Nurses provided Physical Therapy of the chest to facilitate air movement, O2 reportedly increased to 97% before patient stopped breathing. EMS was then called and found the patient in asystole and not breathing. URSULA device was placed to start compressions. IO placed to the left tibia. After multiple attempts to place ET tube, he switched from asystole to PEA for 2 minutes before reverting back to asystole. Given total of 3 epi and 1 bicarb en route with Ursula Device, still in asystole, after about 45min of cardiopulmonary arrest. Past History - Past Medical History Allergies/Adverse Reactions: Allergies Allergy/AdvReac Type Severity Reaction Status Date / Time albuterol Allergy Verified 12/06/18 14:12 Cephalosporins Allergy Verified 12/06/18 14:12 latex Allergy Verified 12/06/18 14:12 Penicillins Allergy Verified 12/06/18 14:12 shrimp Allergy Verified 12/06/18 14:12 wool Allergy Verified 12/06/18 14:12 Home Medications: Ambulatory Orders Clobazam [Onfi -] 10 mg GT HS 11/23/17 Diazepam [Diastat] 10 mg RC ONCE PRN 11/23/17 Fluticasone Prop 0.05% Nasal [Flonase -] 2 spray NS HS 11/23/17 Lorazepam [Ativan] 1 mg GT ASDIR PRN 11/23/17 Polyethylene Glycol 3350 [Miralax 119 gm Btl -] 17 gm GT ASDIR 11/23/17 Rufinamide [Banzel] 1,600 mg GT BID 11/23/17 Zonisamide [Zonegran -] 50 mg GT HS 11/23/17 Zonisamide [Zonegran] 200 mg GT TID 11/23/17 Topiramate [Topamax] 300 mg GT DAILY 02/14/18 Carbamazepine 300 mg GT DAILY 04/02/18 Ipratropium 0.02% Nebulizer [Atrovent 0.02% Nebulizer -] 1 amp IH QID PRN Topiramate [Qudexy Xr] 400 mg GT HS 04/02/18 Silver Sulfadiazine 1% Top Cr 1 appful TP TID 04/22/18 Clobazam [Onfi -] 5 mg GT DAILY 04/23/18 EPINEPHrine (EPI-PEN 0.3MG) [Epipen 0.3MG -] 0.3 mg IM ASDIR 04/23/18 Hydrocolloid Dressing [Duoderm Cgf] 1 applic TP DAILY PRN 04/23/18 Scopolamine Hydrobromide [Transderm-Scop -] 1 patch TD Q3D@1000 patch.td72 Acetaminophen [Tylenol .Extra-Strength -] 500 mg GT Q6H PRN tablet 10/13/18 Bacitracin - [Bacitracin Topical Ointment -] 1 applic TP DAILY tube 10/13/18 Ipratropium 0.02% Nebulizer [Atrovent 0.02% Nebulizer -] 1 amp NEB RQID amp Mineral Oil Enema [Fleet Mineral Oil Rectal Enema -] 133 ml [place] ONCE PRN enema 10/13/18 levoFLOXacin [Levaquin -] 750 mg PO DAILY@0600 tablet 10/13/18 Anemia: No Asthma: No Cancer: No Cardiac Disorders: No CVA: No COPD: No CHF: No Dementia: No Diabetes: No GI Disorders: Yes (gtube) Disorders: Yes (reccurent UTI's) HTN: No Hypercholesterolemia: No Liver Disease: No Seizures: Yes (epilepsy, cp,) Thyroid Disease: No - Surgical History Abdominal Surgery: Yes (gtube feeding) Appendectomy: No Cardiac Surgery: No Cholecystectomy: No Lung Surgery: No Neurologic Surgery: No Orthopedic Surgery: Yes (scoliosis repair) - Immunization History Immunization Up to Date: Yes - Suicide/Smoking/Psychosocial Hx Smoking History: Never smoked Have you smoked in the past 12 months: No Hx Alcohol Use: No Drug/Substance Use Hx: No Substance Use Type: None Hx Substance Use Treatment: No Review of Systems - Review of Systems Able to Perform ROS?: No (cardiopulmonary arrest) *Physical Exam - Physical Exam General Appearance: Yes: Other (intubated, nonresponsive) HEENT: positive: Other (pupils fixed) Respiratory/Chest: positive: Other (intubated, bag masked. Large amount of vomitus in the ET tube) Cardiovascular: positive: Other (non cardiac movement) Gastrointestinal/Abdominal: positive: Other (peg tube in place) Integumentary: positive: Other (cyanotic) Neurologic: positive: Other (non-responsive) Medical Decision Making - Medical Decision Making 12/06/18 14:46 28m coming after 45min of cardiopulmonary arrest. One additional round of epi given with continued compressions, patient still in asystole. Et tube placement found placed in esophagus, large amount of vomitus. Cardiac standstill confirmed by bedside ultrasound. Pronounced at 1:47PM. *DC/Admit/Observation/Transfer Diagnosis at time of Disposition: Cardiopulmonary arrest, - Discharge Dispostion Disposition: Condition at time of disposition: - Referrals - Patient Instructions - Post Discharge Activity
[2018-12-06 14:12] VITALS: BP 0/0; BMI 25.4
== END 2018-12-06 17:30 | disposition expired ==
LOC: JER 13:38
PROC: 5A02216 Assistance with Cardiac Output using Other Pump, Continuous (ICD-10-PCS; principal; 2018-12-06)
DX: I46.9 Cardiac arrest, cause unspecified (principal); F72 Severe intellectual disabilities; G80.8 Other cerebral palsy; G40.909 Epilepsy, unspecified, not intractable, without status epilepticus; Z93.1 Gastrostomy status; Z88.1 Allergy status to other antibiotic agents; Z74.01 Bed confinement status; Z87.09 Personal history of other diseases of the respiratory system
CPT/HCPCS: 92950; 99284-25